=== PATIENT | female | born 1945 ===

== ENCOUNTER 2018-05-15 11:26 | Inpatient (IN) | payer MEDICARE, MEDICAID ==
[2018-05-15] MEDS ORDERED: Morphine 4 MG/ML VIAL ONE (11:59)
--- NOTE | 2018-05-15 12:05 | C.PDOC ---
History Of Present Illness 72 year old female presents to the ED complaining of left leg pain since 3:30pm yesterday. Patient is a poor historian, yelling and writhing in pain. On arrival, she appears to have increased swelling and redness to the left lower ex tremity. Patient also complains of pain to both feet. She admits to taking 3 tabs of Advil without relief. Patient also states she put rubbing alcohol on her leg. Time Seen by Provider: 05/15/18 11:43 Chief Complaint (Nursing): Lower Extremity Problem/Injury History Per: Patient History/Exam Limitations: no limitations Onset/Duration Of Symptoms: Days (x 2) Current Symptoms Are (Timing): Still Present Severity: Moderate Past Medical History Reviewed: Historical Data, Nursing Documentation, Vital Signs Vital Signs: Last Vital Signs Temp 97.3 F L 05/15/18 11:43 Pulse 76 05/15/18 11:43 Resp 20 05/15/18 11:43 BP 137/63 05/15/18 11:43 Pulse Ox 99 05/15/18 11:43 - Medical History PMH: CAD, CHF, Diabetes, HTN Surgical History: CABG Family History: States: No Known Family Hx - Social History Hx Alcohol Use: No Hx Substance Use: No Review Of Systems Constitutional: Negative for: Fever, Chills Cardiovascular: Negative for: Chest Pain Respiratory: Negative for: Shortness of Breath Gastrointestinal: Negative for: Vomiting, Abdominal Pain Musculoskeletal: Positive for: Leg Pain (with swelling to left leg) Skin: Positive for: Rash (redness to left leg) Physical Exam - Physical Exam Appears: Non-toxic, No Acute Distress Skin: Warm, Dry, Rash (non-blanching erythema scattered across the left lower extremity from upper thigh down to the ankle), Other (+ weeping to the left foot) Head: Atraumatic, Normacephalic Eye(s): bilateral: Normal Inspection Oral Mucosa: Moist Neck: Normal ROM Chest: Symmetrical Cardiovascular: Rhythm Regular, No Murmur Respiratory: Normal Breath Sounds, No Rales, No Rhonchi, No Wheezing Gastrointestinal/Abdominal: Soft, No Tenderness, No Distention Extremity: Normal ROM, Tenderness (diffusely tender to the left lower extremity), Swelling (Pitting edema to bilateral lower extremities, left > right), Other (Left leg is warm, DP pulses via doppler) Neurological/Psych: Oriented x3, Normal Speech, Normal Motor, Normal Sensation ED Course And Treatment - Laboratory Results Result Diagrams: 05/15/18 12:06 05/15/18 12:06 Lab Interpretation: Abnormal ECG: Interpreted By Me, Viewed By Me ECG Rhythm: Sinus Rhythm, R BBB Rate From EC O2 Sat by Pulse Oximetry: 99 (RA) Pulse Ox Interpretation: Normal Medical Decision Making Medical Decision Making: Impression: Left leg pain and swelling Differential diagnosis includes but not limited to: Cellulitis vs PVD vs DVT Plan: - CMP - CBC - PTT/PT - Urinalysis - 4 mg IV Morphine - Arterial and venous duplex studies ordered of LLE Patient also seen and evaluated by ED attending Dr. Nunez, who agrees with management. Received notice of critical lab value: 38 bands WBC 2.1k Platelets decreased Code Sepsis initiated. Will order 1 bolus of IV fluids, however no additional liters at this time due to patient's history of CHF. 14:41 photo technician called, states he is unable to obtain arterial doppler due to patient being uncooperative, in severe pain. Also reports venous doppler is negative for DVT, though he cannot see the veins of the calf. [id number] Loyd yousif manager organizational to discuss case. Accepted patient to service Disposition - Disposition Disposition: HOSPITALIZED Disposition Time: 15:04 Condition: FAIR Forms: [facility] (Montenegrin) - POA Core Measure Indicators: Code Sepsis - Clinical Impression Clinical Impression: Cellulitis of left lower extremity - PA / BLOCK PILER / Resident Statement MD/DO has reviewed & agrees with the documentation as recorded. - Scribe Statement The provider has reviewed the documentation as recorded by the Scribmorro Pacheco All medical record entries made by the Scribe were at my direction and personally dictated by me. I have reviewed the chart and agree that the record accurately reflects my personal performance of the history, physical exam, medical decision making, and the department course for this patient. I have also personally directed, reviewed, and agree with the discharge instructions and disposition. Decision To Admit - Pt Status Changed To: Hospital Disposition Of: Inpatient - Admit Certification Admit to Inpatient:: After my assessment, the patient will require hospitalization for at least two midnights. This is because of the severity of symptoms shown, intensity of services needed, and/or the medical risk in this patient being treated as an outpatient. - InPatient: Physician Admission Certification: I certify that this patient requires 2 or more midnights of care for the following reason:: patient with acute cellulitis of left lower extremity. labs and doppler performed. patient met sepsis criteria and treated with emperic antibiotics and fluids. [facility] - . Bed Request Type: Regular Admitting Physician: Alison Harp Patient Diagnosis: Cellulitis of left lower extremity
[2018-05-15 12:11] LABS: HEMOGLOBIN 8.7 g/dL (11.0-16.0); LYMPH # 0.1 K/uL (1.0-4.3); MONO # 0.1 K/uL (0.0-0.8)
[2018-05-15 12:15] LABS: BASO % 0.3 % (0.0-2.0); LYMPH % 5.8 % (20.0-40.0); MEAN CORPUSCULAR HEMOGLOBIN 34.3 pg (27.0-31.0); MEAN PLATELET VOLUME 10.8 fL (7.2-11.7); MONO % 5.1 % (0.0-10.0); NEUT # 1.9 K/uL (1.8-7.0); NEUT % 88.8 % (50.0-75.0); RBC 2.53 Mil/uL (3.80-5.20); RED CELL DISTRIBUTION WIDTH 16.9 % (11.5-14.5); WHITE BLOOD COUNT 2.1 K/uL (4.8-10.8)
[2018-05-15 12:18] LABS: INR 1.6; PROTHROMBIN TIME 17.6 SECONDS (9.7-12.2)
[2018-05-15 12:19] LABS: PLATELET COUNT 66 K/uL (130-400)
[2018-05-15 12:28] LABS: ALB/GLOB RATIO 1.2 (1.0-2.1); ALBUMIN 3.3 g/dL (3.5-5.0); CALCIUM 8.4 mg/dl (8.6-10.4)
[2018-05-15 12:37] LABS: ANISOCYTOSIS SLIGHT; BANDS 38 % (0-2); LYMPHOCYTE 7 % (20-40); METAMYELOCYTE 1 % (0-0); MONOCYTE 3 % (0-10); MYELOCYTE 1 % (0-0); NEUTROPHIL 50 % (50-75); OVALOCYTES SLIGHT; PLATELET ESTIMATE DECREASED (NORMAL); TOTAL CELLS COUNTED 100
[2018-05-15] MEDS ORDERED: Clindamycin 600 MG in Sodium Chloride 0.9% 100 ML IVPB STA (12:41)
[2018-05-15] MEDS ORDERED: Vancomycin 1 gm/NS 200 ml 1 GM/200 ML BAG IVPB STA (12:41)
[2018-05-15 13:06] LABS: VENOUS BLOOD GAS PCO2 46 mmHg (40-60); VENOUS BLOOD GAS PO2 17 mm/Hg (30-55)
[2018-05-15] MEDS ORDERED: Vancomycin 1 GM 1 GM/250 ML BAG IVPB ONE (13:13)
[2018-05-15] MEDS ORDERED: Clindamycin 600mg/50ml NS 600 MG/50 ML BAG IVPB ONE (13:13)
[2018-05-15 15:10] LABS: VENOUS BLOOD GAS BASE EXCESS -8.7 mmol/L (0.0-2.0); VENOUS BLOOD GAS PCO2 48 mmHg (40-60); VENOUS BLOOD GAS PO2 24 mm/Hg (30-55); VENOUS BLOOD PH 7.21 (7.32-7.43)
[2018-05-15] MEDS ORDERED: Potassium Chloride 20 mEq ER Tab PO ONE (16:40)
--- NOTE | 2018-05-15 17:28 | CP.PCM.PN ---
Subjective - Date & Time of Evaluation Date of Evaluation: 05/15/18 Time of Evaluation: 17:23 - Subjective Subjective: Ms. Hughes is a 72 year old female with PMHx of CHF, CAD, HLD, Diabetes, HTN, and Thyroid Disease (Unspecified) who presents with complaints of left lower extremity pain that began yesterday. Patient also admits to fever. Patie nt attempted ibuprofen and rubbing alcohol for the pain with any relief. ROS POSITIVES: Left Lower Ext. pain. Fevers. NEGATIVES: Headache, chest pain, SOB, abdominal pain, nausea, vomiting, changes in bowel habits, urinary symptoms. PMHx: PMHx of CHF, CAD, HLD, Diabetes, HTN, and Thyroid Disease,Kidney Disease (Son said they have been told about the kidney disease but never f/u) PSHX: CABGx2 Allergies: Penicillin per chart, patient states she doesn't know SocialHx: Denies tobacco, EtoH, and Illicit Drug USe FamHx: Brother/Sister - Diabetes Meds: Per APR (Pharmacy called, patient hasn't picked up medications from [facility] pharmacy since 2018). Although that is the pharmacy her son named. PMD: Dr. Vilchis in [place] Objective - Vital Signs/Intake and Output Vital Signs (last 24 hours): Temp Pulse Resp BP Pulse Ox 97.7 F 60 16 134/48 L 95 05/15/18 16:03 05/15/18 16:03 05/15/18 16:03 05/15/18 16:03 05/15/18 16:03 - Medications Medications: Current Medications Acetaminophen (Tylenol 325mg Tab) 650 mg PO Q6 PRN PRN Reason: Fever >100.4 F Vancomycin/Sodium Chloride (Vancomycin 1 Gm/Ns 200 Ml) 1 gm in 200 mls @ 133 mls/hr IVPB Q24H [facility]; Protocol Stop: 05/21/18 13:01 Morphine Sulfate (Morphine) 2 mg IVP Q4 PRN PRN Reason: Pain - Labs Labs: 05/15/18 12:06 05/15/18 12:06 PT 17.6 SECONDS (9.7-12.2) H 05/15/18 12:06 INR 1.6 05/15/18 12:06 APTT 33 SECONDS (21-34) 03/29/19 12:06 - Constitutional Appears: Toxic, No Acute Distress, Chronically Ill - Head Exam Head Exam: ATRAUMATIC, NORMAL INSPECTION, NORMOCEPHALIC - Eye Exam Eye Exam: EOMI, Normal appearance. absent: Scleral icterus - ENT Exam ENT Exam: Mucous Membranes Dry - Neck Exam Neck Exam: absent: Lymphadenopathy, Thyromegaly - Respiratory Exam Respiratory Exam: Decreased Breath Sounds (B/L L>R), Clear to Ausculation Bilateral. absent: Accessory Muscle Use - Cardiovascular Exam Cardiovascular Exam: RRR, +S1, +S2 - GI/Abdominal Exam GI & Abdominal Exam: Soft, Normal Bowel Sounds. absent: Guarding, Tenderness, Organomegaly, Rebound - Extremities Exam Extremities Exam: Pedal Edema (R-+2, L-+3), Tenderness (Left Lowere Ext. ). absent: Normal Inspection - Neurological Exam Neurological Exam: Awake, Oriented x3. absent: Alert (Lethargic) - Psychiatric Exam Psychiatric exam: Normal Affect, Normal Mood - Skin Skin Exam: Dry, Intact, Warm Additional comments: Left Lower Extremity Erythema Assessment and Plan - Assessment and Plan (Free Text) Assessment: 72 year old female with PMHx of CHF, CAD, HLD, Diabetes, HTN, and Thyroid Disease who was admitted for Sepsis 2/ to Left Lower Ext. Cellulitis. Plan: SEPSIS/Left Lower Ext. Cellulitis Source: Left Lower Ext. Cellulitis vs PNA VBG Lactate 4.5x 2, Leukopenic, A-febrile CXR (05/15): shows almost complete white out of the left lung CT Chest/Abd/Pelvis(05/15): Ordered and PENDING. Consults: Infectious Disease (Dr. Guevara), Will Consider Podiatry Consult Labs: F/U Blood/Urine Culture. F/U UA Mgmt: Vancomycin 1gram Q24H Zosyn 2.25gm Q8H NS @ 75mls/hr Morphine 2mg Q4H IVP PRN (Held, due to Hypotension) Ultram 25 TID PRN (Use with Caution) Acute Renal Failure Cr. 3.3 on admission. No Baseline. Per Son, Patient was told about kidney disease but never followed up. Labs: Random Microalbumin w/Cr Ratio. F/U Consults: Nephrology (Dr. Pereira), Recs Appreciated Mgmt: Gentle Fluid Hydration (Hx of CHF). NS@75mls/hr Renally Dose Meds Avoid Nephrotoxic Agents Pantocytopenia WBC-2.1, HgB 8.7, Plt-66 Consults: Heme (Dr. Duggan), Recs Appreciated Labs: F/U Anemic Studies, F/U HIV Monitor Elevated Liver Enzymes AST Elevated. DDx: Ischemic Liver vs Fatty Liver, Vs Hepatitis CT Chest/Abd/Pelvis(05/15): Ordered and PENDING. Labs: Hepatitis Panel, F/U Continue to Monitor Left Lung White Out. CT Chest/Abd/Pelvis(05/15): Ordered and PENDING. Repeat CXR in AM Mgmt: Vancomycin 1gram Q24H Zosyn 2.25gm Q8H Hypotension Rapid Repsonse called for hypotension SBP in 70-80s Consults: Cardio (Dr. Ramires), Recs Appreciated RBBB on EKG Likely 2/2 to Morphine (Given in ED) vs Sepsis. Mgmt: 250 fluid Bolus. Inc Fluids to 75mls/hr Transferred to Tele Hold all Antihypertensives Hx of CHF/RBBB Unknown if Systolic vs Diastolic. Likely ischemic Cardiomyopathy Consults: Cardio (Dr. Ramires), Recs Appreciated ECHO (05/15/18): Ordered and PENDING BNP Ordered - F/U Mgmt: Fluid Caution, HOB Elevated to 30, Strict I's & O' Hold Home MEtoprolol due to RBBB Furosemide 20mg BID CAD w/ CABG Called pharmacy Patient was not on ASA nor Plavix. Aspirin was mentioned and she stated she stopped taking it because she didn't like it Mgmt: ASA 81 Daily Home Pravastatin 40mg PO HS Thyroid Disease Patient and patients son does not know what type of Thyroid Disease she has Pharmacy Called. No medications on list for Hyper or Hypothyroidism Labs: TSH/Free t4 - F/U Hyperlipidemia Mgmt: Home Pravastatin 40mg PO HS Hypertension Mgmt: Hold all Antihypertensives Hold Lasix for SBP < 90 Diabetes Type 2 F/U HgBA1C Mgmt: Home Glipizide 10mg BID Proph No pharmocological VTE proph due to pantocytopenia No SCD's due to Edema/Cellulitis. Pepcid 20 Daily (Home Med, Renally Dosed) Renal Diet, Mod Cons. Carbs 2gm Na Patient discussed with Dr. Loyd Tovar
[2018-05-15] MEDS ORDERED: Sodium Chloride 0.9% 1,000 ML IV SCH ×2 (17:45→18:42)
[2018-05-15 18:10] LABS: IRON 14 ug/dL (37-170)
[2018-05-15] MEDS ORDERED: Sodium Chloride 0.9% 250 ML IV ONE ×2 (18:12→23:04)
[2018-05-15 18:21] LABS: % IRON SATURATION 5 (20-55); TOTAL IRON BINDING CAPACITY 288 ug/dL (250-450)
[2018-05-15 18:44] LABS: HEPATITIS B SURFACE AG Negative (NEGATIVE)
--- NOTE | 2018-05-15 18:45 | PCM.RRT ---
MANAGER GROCERY Nurses Assessment - Situation Date: 05/15/18 Time MANAGER GROCERY was called: 18:34 MANAGER GROCERY Responder Arrival Time:: 18:35 MANAGER GROCERY Location:: [facility]/Surg Room Number: 369B MANAGER GROCERY Reason for Call: Hypotension MANAGER GROCERY Called By: RN - IV IV Inserted during MANAGER GROCERY?: No IV Fluids Initiated During MANAGER GROCERY?: NS @ 75 cc/hr - Respiratory MANAGER GROCERY Delivery Method: Nasal Cannula @L/min Oxygen Flow Rate: 2 Received Nebulizer Treatments: No Was the Patient Ventilated with Bag/Mask 100% O2?: No Secretions Suctioned?: No Was the Patient Intubated?: No Was the Patient Placed on a Ventilator?: No - Medication Medications Administered During MANAGER GROCERY: Zofran 4 mg IVP - Diagnostic Test Ordered EKG: Yes Chest X-Ray: No CT Scan: No - Stat Labs Ordered MANAGER GROCERY Stat Labs Ordered: LACTIC ACID CPR started during MANAGER GROCERY?: No - Vital Signs Vital Signs: BP 70/40 HR 55 spO2 97% on 2 L T 98.2 - [place] Coma Scale Coma Scale Eye Opening: Spontaneous Coma Scale Motor: Obeys Commands Movement Coma Scale Verbal: Oriented Coma Scale Total: 15 - Sepsis Screen Part 1 Sepsis Screen Part 1: Hypotensive - Sepsis Screen Part 2 Sepsis Screen Part 2: Bands over 10% - Time MANAGER GROCERY Ended Time MANAGER GROCERY Ended: 18:55 - Vital Signs at end of MANAGER GROCERY Vital Signs at end of MANAGER GROCERY: BP 92/54 HR 62 spO2 100% on 2 L T 98.2 - Recommendations 5) MANAGER GROCERY Level of Care Recommendations: Transfer to Telemetry Notifications: Attending Physician I.Reason for MANAGER GROCERY - A) Acute Change in Patient: (Select all that apply): Acute change in SBP below Subjective: RN called MANAGER GROCERY for hypotension and vomiting. Patient is in acute distress but is alert and oriented. Gave IV Zofran, and patient stopped vomiting. She then said she was hungry. She denies BRICE, chest pain, SOB, abdominal pain. IVF increased from NS @ 40 cc/hr to 75 cc/hr. EKG ordered. Patient will be transferred to telemetry. - Neurological Status (Select all that apply): Alert, Responsive, Oriented, Verbal, Follows Commands - Respiratory Oxygen Delivery Method: Nasal Cannula @L/min (2) - Constitutional Appears: Toxic, In Acute Distress - Head Head Exam: ATRAUMATIC, NORMAL INSPECTION - Eyes Eye Exam: EOMI, Normal appearance, PERRL - Respiratory Exam Respiratory Exam: Rales, NORMAL BREATHING PATTERN. absent: Respiratory Distress - Cardiovascular Exam Cardiovascular Exam: RRR, +S1, +S2 - GI/Abdominal Exam GI & Abdominal Exam: Soft. absent: Distended, Tenderness - Neurological Exam Neurological Exam: Alert, Awake, CN II-XII Intact, Oriented x3 - Extremities Exam Extremities Exam: Pedal Edema (cellulitis bilaterally to just below knees) Plan - Assessment of Findings&Treatment Plan Patient is a 72 yo female admitted today for sepsis- suspect 2/2 lower extremity cellulitis. MANAGER GROCERY called for vomiting and hypotension. Plan: - Stat Zofran 4 mg IVP - Stat EKG - Stat glucose - Start Zosyn 2.25 mg IV Q8H - Hold morphine - Transfer to telemetry - Repeat BP in 30 minutes - Trend lactate
[2018-05-15 18:48] LABS: FERRITIN 73.4 ng/mL
[2018-05-15 18:50] LABS: HEPATITIS A IGM NEGATIVE (NEGATIVE); HEPATITIS B CORE AB NEGATIVE (NEGATIVE)
[2018-05-15 19:02] LABS: HEPATITIS C ANTIBODY NEGATIVE (NEGATIVE)
[2018-05-15 19:18] LABS: FOLATE 13.7 ng/mL
[2018-05-15] MEDS ORDERED: Tramadol 25 mg PO PRN (19:26)
--- NOTE | 2018-05-15 19:32 | PCM.SEPTIC ---
Sepsis Progress Note - Reassessment Type Date of Evaluation: 05/15/18 Time of Evaluation: 18:35 Reassessment Type: Non-invasive reassessment - Non Invasive Reassessment Were the most recent vital sign reviewed: Yes Vital Sign (Latest): Temp Pulse Resp BP Pulse Ox 98.2 F 58 L 20 77/49 L 99 05/15/18 19:16 05/15/18 19:16 05/15/18 19:16 05/15/18 19:16 05/15/18 19:16 Cardiovascular: Yes: Edema, Bradycardia. No: Regular Rate, Rhythm, Murmur, Ectopy, Friction Rub Respiratory: Yes: Decreased Breath Sounds. No: Accessory Muscle Use, Crackles, Rales, Rhonchi, Stridor Capillary Refill: Normal (Less than 2 sec) Pulses: Normal Radial, Normal Dorsalis Pedis, Normal Posterior Tibialis Skin: Pale - Invasive Reassessment (complete 2 of 4) Was a Central Venous Pressure Measurement obtained within 6 Hours after the presentation of septic shock: No Fluid Challenge performed: Yes
[2018-05-15] MEDS ORDERED: Etomidate 20 mg/10ml Inj IV STA (20:01)
[2018-05-15] MEDS ORDERED: Sodium Bicarbonate (8.4%) 50 Meq Syringe IVP STA (20:02)
--- NOTE | 2018-05-15 20:35 | PCM.RRT ---
UNDERGROUND MINE MACHINERY MECHANIC Nurses Assessment - Situation Date: 05/15/18 Time UNDERGROUND MINE MACHINERY MECHANIC was called: 19:43 UNDERGROUND MINE MACHINERY MECHANIC Responder Arrival Time:: 19:44 UNDERGROUND MINE MACHINERY MECHANIC Location:: Med/Oncology Room Number: 369B UNDERGROUND MINE MACHINERY MECHANIC Reason for Call: Hypotension, O2 Saturation below 90% UNDERGROUND MINE MACHINERY MECHANIC Called By: RN - IV IV Inserted during UNDERGROUND MINE MACHINERY MECHANIC?: No - Respiratory UNDERGROUND MINE MACHINERY MECHANIC Delivery Method: Intubated Received Nebulizer Treatments: No Was the Patient Ventilated with Bag/Mask 100% O2?: No Secretions Suctioned?: Yes Was the Patient Intubated?: Yes Was the Patient Placed on a Ventilator?: No - Diagnostic Test Ordered EKG: No Chest X-Ray: No CT Scan: No CPR started during UNDERGROUND MINE MACHINERY MECHANIC?: No - Vital Signs Vital Signs: Rapid Response Vital Sign Blood Pressure 87/56 Pulse Rate 83 Respiratory Rate 20 Temperature 98.2 F Oxygen Saturation 78 - [place] Coma Scale Coma Scale Eye Opening: Spontaneous Coma Scale Motor: Obeys Commands Movement Coma Scale Verbal: Oriented Coma Scale Total: 15 - Sepsis Screen Part 1 Sepsis Screen Part 1: Hypotensive - Sepsis Screen Part 2 Sepsis Screen Part 2: Bands over 10% - Time UNDERGROUND MINE MACHINERY MECHANIC Ended Time UNDERGROUND MINE MACHINERY MECHANIC Ended: 20:03 - Recommendations 5) UNDERGROUND MINE MACHINERY MECHANIC Level of Care Recommendations: Transfer to ICU Notifications: Attending Physician I.Reason for UNDERGROUND MINE MACHINERY MECHANIC - A) Acute Change in Patient: Subjective: House Doctor Note Rapid Response called for patient at 19:43 Patient producing copious amounts of bilious vomiting, aspirated prior to arrival Unable to maintain saturation at adequate level, called for intubation 2/2 aspiration. Patient also noted to be hypotensive on arrival at 87/56. Patient's mouth was immediately suctioned, dentures were removed and given to nurse, patient was induced with 10 mg of etomidate and 80 mg of sux, cricoid pressure was held, rapid sequence intubation performed. Transferred to ICU for further monitoring and care. Initial vitals (19:43) BP 87/56 HR 83 O2 sat 78% Final vitals (20:03) BP 144/64 HR 86 O2 sat 98% - Respiratory Oxygen Delivery Method: Intubated - Head Head Exam: ATRAUMATIC, NORMAL INSPECTION, NORMOCEPHALIC - Eyes Eye Exam: EOMI, Normal appearance, PERRL - Respiratory Exam Additional comments: intubated 2/2 aspiration - Cardiovascular Exam Cardiovascular Exam: REGULAR RHYTHM, +S1, +S2 - GI/Abdominal Exam GI & Abdominal Exam: Soft, Normal Bowel Sounds
[2018-05-15] MEDS: Dexmedetomidine Hydrochloride 200 MCG in Sodium Chloride 0.9% 48 ML IV PRN (20:40)
--- NOTE | 2018-05-15 20:44 | CP.PCM.PN ---
Subjective - Date & Time of Evaluation Date of Evaluation: 05/15/18 Time of Evaluation: 19:55 - Subjective Subjective: I was called by the primary doctor, the hospitalist to intubate the patient because patient vomited couple of times large volumes and aspirated prior to my arrival. Primary team was unable to get her saturation up and called for intubat ion secondary to aspiration. Patient was also hypotensive. At the time of my arrival patient was moaning, shaking head side to side, vomitus observed on the pillow by the head and bed sheet, as well as the mouth. At my arrival patient was been given oxygen by respiratory therapy assistant. At my arrival the saturation was in upper 70's, BP 87/56. Patient's mouth was immediately suctioned and cleaned, upper denture removed, given to the nurse, patient was induced with 10 mg of etomidate and 80 mg of sux, cricoid pressure was held, rapid sequence intubation performed. DL x1, MAC 3 , grade 1 view, mouth clean at DL, ETT 7.0 placed, cuff inflated immediately, tube taped at 21 cm. BS BL and equal, EZ cap positive for ETCO2. Intubation was uneventful and easy. Post intubation saturation improved to 90's, BP remained same. Objective - Vital Signs/Intake and Output Vital Signs (last 24 hours): Temp Pulse Resp BP Pulse Ox 98.2 F 58 L 20 77/49 L 99 05/15/18 19:16 05/15/18 19:16 05/15/18 19:16 05/15/18 19:16 05/15/18 19:16 - Medications Medications: Current Medications Acetaminophen (Tylenol 325mg Tab) 650 mg PO Q6 PRN PRN Reason: Fever >100.4 F or Pain Aspirin (Aspirin Chewable) 81 mg PO DAILY [facility] Famotidine (Pepcid) 20 mg PO DAILY [facility] Glipizide (Glucotrol) 10 mg PO BID [facility] Vancomycin/Sodium Chloride (Vancomycin 1 Gm/Ns 200 Ml) 1 gm in 200 mls @ 133 mls/hr IVPB Q24H [facility]; Protocol Stop: 05/21/18 10:01 Piperacillin Sod/Tazobactam Sod (Zosyn 2.25 Gm Iv Premix) 2.25 gm in 50 mls @ 100 mls/hr IVPB Q8H [facility]; Protocol Sodium Chloride (Sodium Chloride 0.9%) 1,000 mls @ 75 mls/hr IV .[id number] [facility] Dexmedetomidine HCl 200 mcg/ (Sodium Chloride) 50 mls @ 3.4 mls/hr IV TITR PRN; Protocol PRN Reason: Sedation Morphine Sulfate (Morphine) 2 mg IVP Q4 PRN PRN Reason: Pain Rosuvastatin Calcium (Crestor) 5 mg PO HS [facility] - Labs Labs: 05/15/18 12:06 05/15/18 12:06 PT 17.6 SECONDS (9.7-12.2) H 05/15/18 12:06 INR 1.6 05/15/18 12:06 APTT 33 SECONDS (21-34) 05/15/18 12:06
[2018-05-15] MEDS ORDERED: Levothyroxine 50 MCG TAB PO STA (21:48)
[2018-05-15] MEDS: Piperacill/Tazo 2.25gm in Dex 2.25 GM/50 ML BAG IVPB SCH (21:52)
[2018-05-15] MEDS: MethylPREDNISolone 40 mg Vial IVP SCH (21:55)
[2018-05-15 21:57] LABS: ARTERIAL BLOOD GAS HCO3 16.4 mmol/L (21-28); ARTERIAL BLOOD GAS PCO2 35 mm/Hg (35-45); ARTERIAL BLOOD GAS PH 7.25 (7.35-7.45); ARTERIAL BLOOD GAS PO2 230 mm/Hg (80-100); ARTERIAL BLOOD GAS TCO2 16.4 mmol/L (22-28)
[2018-05-15] MEDS ORDERED: DOPamine 400mg/250ml D5W 400 MG/250 ML BAG IV PRN (22:12)
[2018-05-15] MEDS: Sodium Chloride 0.9% 1,000 ML IV SCH (22:30)
[2018-05-15 23:02] LABS: SQUAMOUS EPITHIAL 2 /hpf (0-5); URINE AMORPHOUS SEDIMENT MODERATE /ul (<OCC); URINE BACTERIA OCC (<OCC); URINE BILIRUBIN NEGATIVE (NEGATIVE); URINE BLOOD 1+ (NEGATIVE); URINE CLARITY Hazy (Clear); URINE COLOR Amber (YELLOW); URINE GLUCOSE (UA) NORMAL (Normal); URINE LEUKOCYTE ESTERASE TRACE Leu/uL (Negative); URINE PROTEIN 2+ mg/dL (NEGATIVE)
[2018-05-15] MEDS ORDERED: Dextrose 50% SYRINGE Inj (50 ml) IV STA (23:45)
[2018-05-16] MEDS: Piperacill/Tazo 2.25gm in Dex 2.25 GM/50 ML BAG IVPB SCH ×3 (03:30→19:00)
[2018-05-16 04:23] LABS: SQUAMOUS EPITHIAL 53 /hpf (0-5); URINE AMORPHOUS SEDIMENT FEW /ul (<OCC); URINE BACTERIA MANY (<OCC); URINE BILIRUBIN NEGATIVE (NEGATIVE); URINE BLOOD 3+ (NEGATIVE); URINE CLARITY Turbid (Clear); URINE COLOR Amber (YELLOW); URINE GLUCOSE (UA) NORMAL (Normal); URINE LEUKOCYTE ESTERASE 1+ Leu/uL (Negative); URINE PROTEIN 2+ mg/dL (NEGATIVE); URINE UROBILINOGEN NORMAL mg/dL (0.2-1.0); WBC CLUMPS MANY /hpf
[2018-05-16] MEDS: Dexmedetomidine Hydrochloride 200 MCG in Sodium Chloride 0.9% 48 ML IV PRN ×3 (05:40→21:00)
[2018-05-16 05:49] LABS: ARTERIAL BLOOD GAS HCO3 19.3 mmol/L (21-28); ARTERIAL BLOOD GAS HEMOGLOBIN 9.1 g/dL (11.7-17.4); ARTERIAL BLOOD GAS O2 SAT 96.4 % (95-98); ARTERIAL BLOOD GAS PCO2 39 mm/Hg (35-45); ARTERIAL BLOOD GAS PH 7.29 (7.35-7.45); ARTERIAL BLOOD GAS PO2 102 mm/Hg (80-100)
[2018-05-16 06:40] LABS: MEAN CELL VOLUME 105.7 fL (81.0-99.0); MEAN CORPUSCULAR HEMOGLOBIN 33.6 pg (27.0-31.0); MEAN CORPUSCULAR HGB CONC 31.8 g/dL (33.0-37.0); MEAN PLATELET VOLUME 10.7 fL (7.2-11.7); RBC 2.69 Mil/uL (3.80-5.20); RED CELL DISTRIBUTION WIDTH 17.9 % (11.5-14.5)
[2018-05-16 06:52] LABS: WHITE BLOOD COUNT 1.9 K/uL (4.8-10.8)
[2018-05-16 07:01] LABS: ALBUMIN 2.7 g/dL (3.5-5.0); CALCIUM 7.9 mg/dl (8.6-10.4)
--- NOTE | 2018-05-16 07:46 | CP.PCM.CON ---
History of Present Illness - History of Present Illness History of Present Illness: Chief complaint: Respiratory distress HPI: 72-year-old female with a history of CHF, CAD, hypertension, hyperlipidemia, history of thyroid disease and renal disease, patient admitted to the hospital with a complaining of left lower extremity pain swelling of one day duration. Patient was also having fever. In the emergency room "code sepsis called in. Patient admitted to the medical floor. As the patient having repeated episodes of tachycardia and hypotension rapid response was called and the patient become more lethargic after vomiting episode, intubated by the anesthesiologist and the patient was brought to the intensive care unit. Patient is currently sedated on and on ventilator. Patient son at bedside. Patient had episodes of fever. Also having episodes of chills. Patient had a bite he is vomiting while he was intubating. Past medical history: Had a history of congestive heart failure, coronary artery disease, diabetes, hypertension, hypothyroidism, renal insufficiency. Patient has allergic to penicillin Surgical history include coronary artery bypass grafting x2 Social history: No smoking or drinking history noted Family history significant for diabetes and heart disease Medications at this time not available. Review of system: Patient is very lethargic, intubated now, currently needing his sedation Moving all 4 extremities. Upon admission patient was having severe pain in the left lower extremity, foul- smelling urine noted Also patient was having fever. Chills. Low blood pressure noted in the emergency room On examination: Patient is currently sedated. On ventilator. Hypotension noted. No jugular venous distention noted. Chest bilateral good air entry Heart sounds are regular Abdomen soft nontender. Significant lower extremity edema noted up to the mid thigh region. Also a perineal edema noted Left lower extremity erythema, tenderness, and swelling noted Patient's labs reviewed Elevated creatinine level noted. Also elevated lactic acid Chest x-ray ET tube in position. Patient has a left lower lung effusion Pneumonia cannot be ruled out Assessment and recommendation: 72-year-old female now admitted with acute respiratory failure On ventilator. Hypotension Likely patient has a possible sepsis, and associated septic shock multiorgan failure Discussed with the patient's son about the overall prognosis Low-dose corticosteroid ordered. Hypothyroidism Levothyroxine added DVT GI prophylaxis We will get echocardiogram and a further workup. Overall prognosis is very poor Currently on antibiotic. Acute on chronic renal insufficiency also noted. Patient has a multiple consultants including cardiology, infectious disease, pastrycook. Patient will be monitored in the intensive care unit. Sedation as needed. IV hydration. Past Patient History - Past Medical History & Family History Past Medical History?: Yes - Past Social History Smoking Status: Never Smoked - CARDIAC Hx Congestive Heart Failure: Yes Hx Hypertension: Yes - ENDOCRINE/METABOLIC Hx Endocrine Disorders: Yes Hx Diabetes Mellitus Type 2: Yes - MUSCULOSKELETAL/RHEUMATOLOGICAL Hx Falls: Yes - PSYCHIATRIC Hx Substance Use: No - SURGICAL HISTORY Hx Coronary Artery Bypass Graft: Yes - ANESTHESIA Hx Anesthesia: Yes Has any member of the family had a problem w/ anesthesia?: No Meds Allergies/Adverse Reactions: Allergies Allergy/AdvReac Type Severity Reaction Status Date / Time Penicillins Allergy Verified 05/15/18 11:34 - Medications Medications: Current Medications Acetaminophen (Tylenol 325mg Tab) 650 mg PO Q6 PRN PRN Reason: Fever >100.4 F or Pain Aspirin (Aspirin Chewable) 81 mg PO DAILY LAURENCE Famotidine (Pepcid) 20 mg PO DAILY LAURENCE Last Admin: 05/15/18 21:55 Dose: 20 mg Ferric Sodium Gluconate Complex (Ferrlecit) 125 mg IVPB DAILY LAUR[facility] Stop: 05/24/18 10:01 Glipizide (Glucotrol) 10 mg PO BID LAURENCE Vancomycin/Sodium Chloride (Vancomycin 1 Gm/Ns 200 Ml) 1 gm in 200 mls @ 133 mls/hr IVPB Q24H [facility]; Protocol Stop: 05/21/18 10:01 Piperacillin Sod/Tazobactam Sod (Zosyn 2.25 Gm Iv Premix) 2.25 gm in 50 mls @ 100 mls/hr IVPB Q8H [facility]; Protocol Last Admin: 05/16/18 03:30 Dose: 100 mls/hr Dexmedetomidine HCl 200 mcg/ (Sodium Chloride) 50 mls @ 3.4 mls/hr IV TITR PRN; Protocol PRN Reason: Sedation Last Admin: 05/16/18 05:40 Dose: 0.2 mcg/kg/hr, 3.4 mls/hr Dopamine HCl/Dextrose (Dopamine 400mg/250ml D5w) 400 mg in 250 mls @ 5.103 mls/hr IV .Q24H PRN; Protocol PRN Reason: TITRATE PER MD ORDER Last Titration: 05/16/18 00:30 Dose: 3 mcg/kg/min, 7.654 mls/hr Sodium Chloride (Sodium Chloride 0.9%) 1,000 mls @ 100 mls/hr IV .Q10H [facility] Last Admin: 05/15/18 22:30 Dose: 100 mls/hr Dextrose (Dextrose 5% In Water 1000 Ml) 1,000 mls @ 40 mls/hr IV .Q24H [facility] Last Admin: 05/15/18 23:50 Dose: 40 mls/hr Methylprednisolone (Solu-Medrol) 40 mg IVP Q12 [facility] Last Admin: 05/15/18 21:55 Dose: 40 mg Morphine Sulfate (Morphine) 2 mg IVP Q4 PRN PRN Reason: Pain Rosuvastatin Calcium (Crestor) 5 mg PO HS [facility] Last Admin: 05/15/18 21:55 Dose: 5 mg Results - Vital Signs Recent Vital Signs: Last Vital Signs Temp 97.9 F 05/16/18 00:00 Pulse 73 05/16/18 07:03 Resp 16 05/16/18 07:03 BP 98/49 L 05/16/18 07:03 Pulse Ox 100 05/16/18 07:03 - Labs Result Diagrams: 05/16/18 06:30 05/16/18 06:30 Labs: Laboratory Results - last 24 hr 05/15/18 05/15/18 05/15/18 11:31 12:06 12:06 WBC 2.1 L RBC 2.53 L Hgb 8.7 L Hct 26.4 L MCV 104.0 H MCH 34.3 H MCHC 33.0 RDW 16.9 H Plt Count 66 L MPV 10.8 Neut % (Auto) 88.8 H Lymph % (Auto) 5.8 L [place] % (Auto) 5.1 Eos % (Auto) 0.0 Baso % (Auto) 0.3 Neut # (Auto) 1.9 Lymph # (Auto) 0.1 L [place] # (Auto) 0.1 Eos # (Auto) 0.0 Baso # (Auto) 0.0 Neutrophils % (Manual) 50 Band Neutrophils % 38 H* Lymphocytes % (Manual) 7 L Monocytes % (Manual) 3 Metamyelocytes % 1 H Myelocytes % 1 H Platelet Estimate Decreased L Anisocytosis (manual) Slight Ovalocytes Slight Haptoglobin PT 17.6 H INR 1.6 APTT 33 Puncture Site pCO2 pO2 HCO3 ABG pH ABG Total CO2 ABG O2 Saturation ABG Base Excess ABG Hemoglobin ABG Carboxyhemoglobin POC ABG HHb (Measured) ABG Methemoglobin Nicolás Test ABG Potassium VBG pH VBG pCO2 VBG HCO3 VBG Total CO2 VBG O2 Sat (Calc) VBG Base Excess VBG Potassium A-a O2 Difference Respiratory Index Hgb O2 Saturation Glucose Lactate Vent Mode Mechanical Rate FiO2 Tidal Volume PEEP Crit Value Called To Crit Value Called By Crit Value Read Back Blood Gas Notified Time Sodium Potassium Chloride Carbon Dioxide Anion Gap BUN Creatinine Est GFR ( Amer) Est GFR (Non-Af Amer) POC Glucose (mg/dL) 155 H Random Glucose Hemoglobin A1c Lactic Acid Calcium Phosphorus Magnesium Iron TIBC % Saturation Ferritin Total Bilirubin AST ALT Alkaline Phosphatase NT-Pro-B Natriuret Pep Total Protein Albumin Globulin Albumin/Globulin Ratio Vitamin B12 25-OH Vitamin D Total Folate Free T4 TSH 3rd Generation Arterial Blood Potassium Venous Blood Potassium Urine Color Urine Clarity Urine pH Ur Specific [place] Urine Protein Urine Glucose (UA) Urine Ketones Urine Blood Urine Nitrate Urine Bilirubin Urine Urobilinogen Ur Leukocyte Esterase Urine WBC (Auto) Urine RBC (Auto) Urine WBC Clumps (Auto) Ur Squamous Epith Cells Amorphous Sediment Urine Bacteria Hyaline Casts Hepatitis A IgM Ab Hep Bs Antigen Hep B Core IgM Ab Hepatitis C Antibody HIV 1&2 Antibody Screen 05/15/18 05/15/18 05/15/18 12:06 13:00 13:03 WBC RBC Hgb Hct MCV MCH MCHC RDW Plt Count MPV Neut % (Auto) Lymph % (Auto) [place] % (Auto) Eos % (Auto) Baso % (Auto) Neut # (Auto) Lymph # (Auto) [place] # (Auto) Eos # (Auto) Baso # (Auto) Neutrophils % (Manual) Band Neutrophils % Lymphocytes % (Manual) Monocytes % (Manual) Metamyelocytes % Myelocytes % Platelet Estimate Anisocytosis (manual) Ovalocytes Haptoglobin PT INR APTT Puncture Site pCO2 pO2 17 L HCO3 ABG pH ABG Total CO2 ABG O2 Saturation ABG Base Excess ABG Hemoglobin ABG Carboxyhemoglobin POC ABG HHb (Measured) ABG Methemoglobin Nicolás Test ABG Potassium VBG pH 7.30 L VBG pCO2 46 VBG HCO3 19.7 VBG Total CO2 24.0 VBG O2 Sat (Calc) 23.6 L VBG Base Excess -4.0 L VBG Potassium 3.4 L A-a O2 Difference Respiratory Index Hgb O2 Saturation Glucose 121 H Lactate 4.5 H* Vent Mode Mechanical Rate FiO2 Tidal Volume PEEP Crit Value Called To Rui lou pa-c Crit Value Called By Emerita silverman rt Crit Value Read Back Y Blood Gas Notified Time 1306 Sodium 139 144.0 Potassium 3.3 L Chloride 104 108.0 H Carbon Dioxide 22 Anion Gap 16 BUN 56 H Creatinine 3.3 H Est GFR ( Amer) 17 Est GFR (Non-Af Amer) 14 POC Glucose (mg/dL) Random Glucose 142 H Hemoglobin A1c Lactic Acid Calcium 8.4 L Phosphorus 4.1 Magnesium 1.8 Iron TIBC % Saturation Ferritin Total Bilirubin 1.0 AST 63 H ALT 13 Alkaline Phosphatase 54 NT-Pro-B Natriuret Pep Total Protein 6.0 L Albumin 3.3 L Globulin 2.7 Albumin/Globulin Ratio 1.2 Vitamin B12 25-OH Vitamin D Total Folate Free T4 TSH 3rd Generation Arterial Blood Potassium Venous Blood Potassium 3.4 L Urine Color Urine Clarity Urine pH Ur Specific [place] Urine Protein Urine Glucose (UA) Urine Ketones Urine Blood Urine Nitrate Urine Bilirubin Urine Urobilinogen Ur Leukocyte Esterase Urine WBC (Auto) Urine RBC (Auto) Urine WBC Clumps (Auto) Ur Squamous Epith Cells Amorphous Sediment Urine Bacteria Hyaline Casts Hepatitis A IgM Ab Hep Bs Antigen Hep B Core IgM Ab Hepatitis C Antibody HIV 1&2 Antibody Screen 05/15/18 05/15/18 05/15/18 15:07 17:04 17:49 WBC RBC Hgb Hct MCV MCH MCHC RDW Plt Count MPV Neut % (Auto) Lymph % (Auto) [place] % (Auto) Eos % (Auto) Baso % (Auto) Neut # (Auto) Lymph # (Auto) [place] # (Auto) Eos # (Auto) Baso # (Auto) Neutrophils % (Manual) Band Neutrophils % Lymphocytes % (Manual) Monocytes % (Manual) Metamyelocytes % Myelocytes % Platelet Estimate Anisocytosis (manual) Ovalocytes Haptoglobin PT INR APTT Puncture Site pCO2 pO2 24 L HCO3 ABG pH ABG Total CO2 ABG O2 Saturation ABG Base Excess ABG Hemoglobin ABG Carboxyhemoglobin POC ABG HHb (Measured) ABG Methemoglobin Nicolás Test ABG Potassium VBG pH 7.21 L VBG pCO2 48 VBG HCO3 16.3 VBG Total CO2 20.7 L VBG O2 Sat (Calc) 32.4 L VBG Base Excess -8.7 L VBG Potassium 3.7 A-a O2 Difference Respiratory Index Hgb O2 Saturation Glucose 104 Lactate 4.5 H* Vent Mode Mechanical Rate FiO2 Tidal Volume PEEP Crit Value Called To Enrique Crit Value Called By Isaiah pascual Crit Value Read Back Y Blood Gas Notified Time 1510 Sodium 143.0 Potassium Chloride 111.0 H Carbon Dioxide Anion Gap BUN Creatinine Est GFR ( Amer) Est GFR (Non-Af Amer) POC Glucose (mg/dL) 116 H Random Glucose Hemoglobin A1c Lactic Acid Calcium Phosphorus Magnesium Iron TIBC % Saturation Ferritin Total Bilirubin AST ALT Alkaline Phosphatase NT-Pro-B Natriuret Pep Total Protein Albumin Globulin Albumin/Globulin Ratio Vitamin B12 25-OH Vitamin D Total Folate Free T4 TSH 3rd Generation Arterial Blood Potassium Venous Blood Potassium 3.7 Urine Color Urine Clarity Urine pH Ur Specific [place] Urine Protein Urine Glucose (UA) Urine Ketones Urine Blood Urine Nitrate Urine Bilirubin Urine Urobilinogen Ur Leukocyte Esterase Urine WBC (Auto) Urine RBC (Auto) Urine WBC Clumps (Auto) Ur Squamous Epith Cells Amorphous Sediment Urine Bacteria Hyaline Casts Hepatitis A IgM Ab Negative Hep Bs Antigen Negative Hep B Core IgM Ab Negative Hepatitis C Antibody Negative HIV 1&2 Antibody Screen 05/15/18 05/15/18 05/15/18 17:49 17:49 17:49 WBC RBC Hgb Hct MCV MCH MCHC RDW Plt Count MPV Neut % (Auto) Lymph % (Auto) [place] % (Auto) Eos % (Auto) Baso % (Auto) Neut # (Auto) Lymph # (Auto) [place] # (Auto) Eos # (Auto) Baso # (Auto) Neutrophils % (Manual) Band Neutrophils % Lymphocytes % (Manual) Monocytes % (Manual) Metamyelocytes % Myelocytes % Platelet Estimate Anisocytosis (manual) Ovalocytes Haptoglobin 92.8 PT INR APTT Puncture Site pCO2 pO2 HCO3 ABG pH ABG Total CO2 ABG O2 Saturation ABG Base Excess ABG Hemoglobin ABG Carboxyhemoglobin POC ABG HHb (Measured) ABG Methemoglobin Nicolás Test ABG Potassium VBG pH VBG pCO2 VBG HCO3 VBG Total CO2 VBG O2 Sat (Calc) VBG Base Excess VBG Potassium A-a O2 Difference Respiratory Index Hgb O2 Saturation Glucose Lactate Vent Mode Mechanical Rate FiO2 Tidal Volume PEEP Crit Value Called To Crit Value Called By Crit Value Read Back Blood Gas Notified Time Sodium Potassium Chloride Carbon Dioxide Anion Gap BUN Creatinine Est GFR ( Amer) Est GFR (Non-Af Amer) POC Glucose (mg/dL) Random Glucose Hemoglobin A1c Lactic Acid Calcium Phosphorus Magnesium Iron 14 L TIBC 288 % Saturation 5 L Ferritin Total Bilirubin AST ALT Alkaline Phosphatase NT-Pro-B Natriuret Pep Total Protein Albumin Globulin Albumin/Globulin Ratio Vitamin B12 25-OH Vitamin D Total Folate Free T4 TSH 3rd Generation Arterial Blood Potassium Venous Blood Potassium Urine Color Urine Clarity Urine pH Ur Specific [place] Urine Protein Urine Glucose (UA) Urine Ketones Urine Blood Urine Nitrate Urine Bilirubin Urine Urobilinogen Ur Leukocyte Esterase Urine WBC (Auto) Urine RBC (Auto) Urine WBC Clumps (Auto) Ur Squamous Epith Cells Amorphous Sediment Urine Bacteria Hyaline Casts Hepatitis A IgM Ab Hep Bs Antigen Hep B Core IgM Ab Hepatitis C Antibody HIV 1&2 Antibody Screen Negative 05/15/18 05/15/18 05/15/18 17:49 17:49 17:49 WBC RBC Hgb Hct MCV MCH MCHC RDW Plt Count MPV Neut % (Auto) Lymph % (Auto) [place] % (Auto) Eos % (Auto) Baso % (Auto) Neut # (Auto) Lymph # (Auto) [place] # (Auto) Eos # (Auto) Baso # (Auto) Neutrophils % (Manual) Band Neutrophils % Lymphocytes % (Manual) Monocytes % (Manual) Metamyelocytes % Myelocytes % Platelet Estimate Anisocytosis (manual) Ovalocytes Haptoglobin PT INR APTT Puncture Site pCO2 pO2 HCO3 ABG pH ABG Total CO2 ABG O2 Saturation ABG Base Excess ABG Hemoglobin ABG Carboxyhemoglobin POC ABG HHb (Measured) ABG Methemoglobin Nicolás Test ABG Potassium VBG pH VBG pCO2 VBG HCO3 VBG Total CO2 VBG O2 Sat (Calc) VBG Base Excess VBG Potassium A-a O2 Difference Respiratory Index Hgb O2 Saturation Glucose Lactate Vent Mode Mechanical Rate FiO2 Tidal Volume PEEP Crit Value Called To Crit Value Called By Crit Value Read Back Blood Gas Notified Time Sodium Potassium Chloride Carbon Dioxide Anion Gap BUN Creatinine Est GFR ( Amer) Est GFR (Non-Af Amer) POC Glucose (mg/dL) Random Glucose Hemoglobin A1c Lactic Acid Calcium Phosphorus Magnesium Iron TIBC % Saturation Ferritin 73.4 Total Bilirubin AST ALT Alkaline Phosphatase NT-Pro-B Natriuret Pep Total Protein Albumin Globulin Albumin/Globulin Ratio Vitamin B12 351 25-OH Vitamin D Total Folate 13.7 Free T4 0.89 TSH 3rd Generation 14.40 H Arterial Blood Potassium Venous Blood Potassium Urine Color Urine Clarity Urine pH Ur Specific [place] Urine Protein Urine Glucose (UA) Urine Ketones Urine Blood Urine Nitrate Urine Bilirubin Urine Urobilinogen Ur Leukocyte Esterase Urine WBC (Auto) Urine RBC (Auto) Urine WBC Clumps (Auto) Ur Squamous Epith Cells Amorphous Sediment Urine Bacteria Hyaline Casts Hepatitis A IgM Ab Hep Bs Antigen Hep B Core IgM Ab Hepatitis C Antibody HIV 1&2 Antibody Screen 05/15/18 05/15/18 05/15/18 18:24 18:24 18:39 WBC RBC Hgb Hct MCV MCH MCHC RDW Plt Count MPV Neut % (Auto) Lymph % (Auto) [place] % (Auto) Eos % (Auto) Baso % (Auto) Neut # (Auto) Lymph # (Auto) [place] # (Auto) Eos # (Auto) Baso # (Auto) Neutrophils % (Manual) Band Neutrophils % Lymphocytes % (Manual) Monocytes % (Manual) Metamyelocytes % Myelocytes % Platelet Estimate Anisocytosis (manual) Ovalocytes Haptoglobin PT INR APTT Puncture Site pCO2 pO2 HCO3 ABG pH ABG Total CO2 ABG O2 Saturation ABG Base Excess ABG Hemoglobin ABG Carboxyhemoglobin POC ABG HHb (Measured) ABG Methemoglobin Nicolás Test ABG Potassium VBG pH VBG pCO2 VBG HCO3 VBG Total CO2 VBG O2 Sat (Calc) VBG Base Excess VBG Potassium A-a O2 Difference Respiratory Index Hgb O2 Saturation Glucose Lactate Vent Mode Mechanical Rate FiO2 Tidal Volume PEEP Crit Value Called To Crit Value Called By Crit Value Read Back Blood Gas Notified Time Sodium Potassium Chloride Carbon Dioxide Anion Gap BUN Creatinine Est GFR ( Amer) Est GFR (Non-Af Amer) POC Glucose (mg/dL) 95 Random Glucose Hemoglobin A1c 6.5 Lactic Acid Calcium Phosphorus Magnesium Iron TIBC % Saturation Ferritin Total Bilirubin AST ALT Alkaline Phosphatase NT-Pro-B Natriuret Pep 666315 H Total Protein Albumin Globulin Albumin/Globulin Ratio Vitamin B12 25-OH Vitamin D Total Folate Free T4 TSH 3rd Generation Arterial Blood Potassium Venous Blood Potassium Urine Color Urine Clarity Urine pH Ur Specific [place] Urine Protein Urine Glucose (UA) Urine Ketones Urine Blood Urine Nitrate Urine Bilirubin Urine Urobilinogen Ur Leukocyte Esterase Urine WBC (Auto) Urine RBC (Auto) Urine WBC Clumps (Auto) Ur Squamous Epith Cells Amorphous Sediment Urine Bacteria Hyaline Casts Hepatitis A IgM Ab Hep Bs Antigen Hep B Core IgM Ab Hepatitis C Antibody HIV 1&2 Antibody Screen 05/15/18 05/15/18 05/15/18 20:56 21:54 22:44 WBC RBC Hgb Hct MCV MCH MCHC RDW Plt Count MPV Neut % (Auto) Lymph % (Auto) [place] % (Auto) Eos % (Auto) Baso % (Auto) Neut # (Auto) Lymph # (Auto) [place] # (Auto) Eos # (Auto) Baso # (Auto) Neutrophils % (Manual) Band Neutrophils % Lymphocytes % (Manual) Monocytes % (Manual) Metamyelocytes % Myelocytes % Platelet Estimate Anisocytosis (manual) Ovalocytes Haptoglobin PT INR APTT Puncture Site B pCO2 35 pO2 230 H HCO3 16.4 L ABG pH 7.25 L ABG Total CO2 16.4 L ABG O2 Saturation 97.0 ABG Base Excess -11.0 L ABG Hemoglobin ABG Carboxyhemoglobin POC ABG HHb (Measured) ABG Methemoglobin Nicolás Test Na ABG Potassium 3.5 L VBG pH VBG pCO2 VBG HCO3 VBG Total CO2 VBG O2 Sat (Calc) VBG Base Excess VBG Potassium A-a O2 Difference 154.0 Respiratory Index 0.7 Hgb O2 Saturation Glucose 72 Lactate 4.7 H* Vent Mode Prvc Mechanical Rate 20 FiO2 60.0 Tidal Volume 400 PEEP 5 Crit Value Called To Dr. cooney Crit Value Called By Isaiah pascual Crit Value Read Back Y Blood Gas Notified Time 2156 Sodium 141.0 Potassium Chloride 111.0 H Carbon Dioxide Anion Gap BUN Creatinine Est GFR ( Amer) Est GFR (Non-Af Amer) POC Glucose (mg/dL) Random Glucose Hemoglobin A1c Lactic Acid 5.8 H* Calcium Phosphorus Magnesium Iron TIBC % Saturation Ferritin Total Bilirubin AST ALT Alkaline Phosphatase NT-Pro-B Natriuret Pep Total Protein Albumin Globulin Albumin/Globulin Ratio Vitamin B12 25-OH Vitamin D Total Folate Free T4 TSH 3rd Generation Arterial Blood Potassium 3.5 L Venous Blood Potassium Urine Color [place] Urine Clarity Hazy Urine pH 7.0 Ur Specific [place] 1.013 Urine Protein 2+ H Urine Glucose (UA) Normal Urine Ketones Negative Urine Blood 1+ H Urine Nitrate Negative Urine Bilirubin Negative Urine Urobilinogen 2.0 H Ur Leukocyte Esterase Trace Urine WBC (Auto) 7 H Urine RBC (Auto) 4 H Urine WBC Clumps (Auto) Ur Squamous Epith Cells 2 Amorphous Sediment Moderate H Urine Bacteria Occ H Hyaline Casts 3-5 H Hepatitis A IgM Ab Hep Bs Antigen Hep B Core IgM Ab Hepatitis C Antibody HIV 1&2 Antibody Screen 05/16/18 05/16/18 05/16/18 01:33 04:02 05:45 WBC RBC Hgb Hct MCV MCH MCHC RDW Plt Count MPV Neut % (Auto) Lymph % (Auto) [place] % (Auto) Eos % (Auto) Baso % (Auto) Neut # (Auto) Lymph # (Auto) [place] # (Auto) Eos # (Auto) Baso # (Auto) Neutrophils % (Manual) Band Neutrophils % Lymphocytes % (Manual) Monocytes % (Manual) Metamyelocytes % Myelocytes % Platelet Estimate Anisocytosis (manual) Ovalocytes Haptoglobin PT INR APTT Puncture Site Rb pCO2 39 pO2 102 H HCO3 19.3 L ABG pH 7.29 L ABG Total CO2 20.0 L ABG O2 Saturation 96.4 ABG Base Excess -7.2 L ABG Hemoglobin 9.1 L ABG Carboxyhemoglobin 0.3 L POC ABG HHb (Measured) 3.6 ABG Methemoglobin 0.3 Nicolás Test Na ABG Potassium VBG pH VBG pCO2 VBG HCO3 VBG Total CO2 VBG O2 Sat (Calc) VBG Base Excess VBG Potassium A-a O2 Difference 170.0 Respiratory Index 1.7 Hgb O2 Saturation 95.7 Glucose Lactate Vent Mode Prvc Mechanical Rate 20 FiO2 45.0 Tidal Volume 400 PEEP 5 Crit Value Called To Crit Value Called By Crit Value Read Back Blood Gas Notified Time Sodium Potassium Chloride Carbon Dioxide Anion Gap BUN Creatinine Est GFR ( Amer) Est GFR (Non-Af Amer) POC Glucose (mg/dL) Random Glucose Hemoglobin A1c Lactic Acid 4.4 H* Calcium Phosphorus Magnesium Iron TIBC % Saturation Ferritin Total Bilirubin AST ALT Alkaline Phosphatase NT-Pro-B Natriuret Pep Total Protein Albumin Globulin Albumin/Globulin Ratio Vitamin B12 25-OH Vitamin D Total Folate Free T4 TSH 3rd Generation Arterial Blood Potassium Venous Blood Potassium Urine Color [place] Urine Clarity Turbid Urine pH 7.0 Ur Specific [place] 1.017 Urine Protein 2+ H Urine Glucose (UA) Normal Urine Ketones Trace Urine Blood 3+ H Urine Nitrate Negative Urine Bilirubin Negative Urine Urobilinogen Normal Ur Leukocyte Esterase 1+ H Urine WBC (Auto) 127 H Urine RBC (Auto) 427 H Urine WBC Clumps (Auto) Many H Ur Squamous Epith Cells 53 H Amorphous Sediment Few H Urine Bacteria Many H Hyaline Casts Hepatitis A IgM Ab Hep Bs Antigen Hep B Core IgM Ab Hepatitis C Antibody HIV 1&2 Antibody Screen 05/16/18 05/16/18 05/16/18 06:30 06:30 06:30 WBC 1.9 L* RBC 2.69 L Hgb 9.0 L Hct 28.4 L MCV 105.7 H MCH 33.6 H MCHC 31.8 L RDW 17.9 H Plt Count 61 L MPV 10.7 Neut % (Auto) Lymph % (Auto) [place] % (Auto) Eos % (Auto) Baso % (Auto) Neut # (Auto) Lymph # (Auto) [place] # (Auto) Eos # (Auto) Baso # (Auto) Neutrophils % (Manual) Band Neutrophils % Lymphocytes % (Manual) Monocytes % (Manual) Metamyelocytes % Myelocytes % Platelet Estimate Anisocytosis (manual) Ovalocytes Haptoglobin PT INR APTT Puncture Site pCO2 pO2 HCO3 ABG pH ABG Total CO2 ABG O2 Saturation ABG Base Excess ABG Hemoglobin ABG Carboxyhemoglobin POC ABG HHb (Measured) ABG Methemoglobin Nicolás Test ABG Potassium VBG pH VBG pCO2 VBG HCO3 VBG Total CO2 VBG O2 Sat (Calc) VBG Base Excess VBG Potassium A-a O2 Difference Respiratory Index Hgb O2 Saturation Glucose Lactate Vent Mode Mechanical Rate FiO2 Tidal Volume PEEP Crit Value Called To Crit Value Called By Crit Value Read Back Blood Gas Notified Time Sodium 140 Potassium 3.8 Chloride 112 H Carbon Dioxide 18 L Anion Gap 14 BUN 62 H Creatinine 3.3 H Est GFR ( Amer) 17 Est GFR (Non-Af Amer) 14 POC Glucose (mg/dL) Random Glucose 81 D Hemoglobin A1c Lactic Acid Calcium 7.9 L Phosphorus 5.4 H Magnesium 1.8 Iron TIBC % Saturation Ferritin Total Bilirubin 1.0 AST 76 H D ALT 16 Alkaline Phosphatase 31 L D NT-Pro-B Natriuret Pep Total Protein 5.5 L Albumin 2.7 L Globulin 2.7 Albumin/Globulin Ratio 1.0 Vitamin B12 25-OH Vitamin D Total < 12.8 L Folate Free T4 TSH 3rd Generation Arterial Blood Potassium Venous Blood Potassium Urine Color Urine Clarity Urine pH Ur Specific [place] Urine Protein Urine Glucose (UA) Urine Ketones Urine Blood Urine Nitrate Urine Bilirubin Urine Urobilinogen Ur Leukocyte Esterase Urine WBC (Auto) Urine RBC (Auto) Urine WBC Clumps (Auto) Ur Squamous Epith Cells Amorphous Sediment Urine Bacteria Hyaline Casts Hepatitis A IgM Ab Hep Bs Antigen Hep B Core IgM Ab Hepatitis C Antibody HIV 1&2 Antibody Screen
[2018-05-16] MEDS: MethylPREDNISolone 40 mg Vial IVP SCH (10:00)
[2018-05-16] MEDS ORDERED: Ferric Sodium Gluconat Complex 62.5 mg/5 ml Vial IVPB SCH (10:00)
[2018-05-16] MEDS ORDERED: Potassium Chloride 10 mEq ER Tab PO SCH (10:00)
[2018-05-16] MEDS: Sodium Chloride 0.9% 1,000 ML IV SCH ×2 (10:51→17:12)
[2018-05-16] MEDS: Vancomycin 1 gm/NS 200 ml 1 GM/200 ML BAG IVPB SCH (11:01)
--- NOTE | 2018-05-16 11:47 | CT ---
Date of service: 05/15/2018 PROCEDURE: CT Chest, Abdomen and Pelvis without intravenous contrast HISTORY: White Out LEft Lung, Vomiting, Elevated LFTs, R/O COMPARISON: None available. TECHNIQUE: Radiation dose: Total exam DLP = 1662.1 mGy-cm. This CT exam was performed using one or more of the following dose reduction techniques: Automated exposure control, adjustment of the mA and/or kV according to patient size, and/or use of iterative reconstruction technique. FINDINGS: CT CHEST WITHOUT CONTRAST: LUNGS: [id number] pulmonary vascular congestion noted. There are nodular opacities noted at the left lower lobe and to less degree in the right middle and lower lobe suspicious for infectious process. MEDIASTINUM: The thoracic aorta is ectatic and tortuous. The main pulmonary artery is mildly enlarged. Atherosclerotic calcifications seen in the thoracic aorta. The heart is moderately enlarged. No evidence of pericardial effusion. LYMPH NODES: Unremarkable. PLEURA: Small right pleural effusion is noted. BONES: Unremarkable. OTHER FINDINGS: The NG tube seen extending to the stomach. CT ABDOMEN AND PELVIS: LIVER: Moderate hepatomegaly and diffuse heterogeneous attenuation of the liver is noted. GALLBLADDER AND BILE DUCTS: Large gallstones are seen without definite CT evidence of acute cholecystitis. PANCREAS: The pancreas is small in size not well visualized in this study. There is fullness noted in the pancreatic head. SPLEEN: Unremarkable. ADRENALS: Diffuse enlargement of the adrenal glands noted bilaterally suggestive of adrenal hyperplasia. KIDNEYS AND URETERS: The kidneys are small in size without evidence of hydronephrosis. VASCULATURE: Diffuse atherosclerotic calcification noted in the abdominal aorta and iliac arteries. No evidence of aortic aneurysm. BOWEL: Colonic diverticulosis are seen without evidence of diverticulitis. No evidence of high-grade bowel obstruction. APPENDIX: No definite evidence of appendicitis. PERITONEUM: There is a small amount of free fluid in the abdomen and pelvis noted. LYMPH NODES: Unremarkable. No enlarged lymph nodes. BLADDER: The urinary bladder is collapsed around the [place] catheter. REPRODUCTIVE: Unremarkable. BONES: No acute fracture. OTHER FINDINGS: Moderate diffuse soft tissue edema. IMPRESSION: Nodular opacities at the left lung lower lobe may represent pneumonia. Moderate cardiomegaly and small right pleural effusion associated with [id number] pulmonary vascular congestion. Hepatomegaly. Large gallstones without definite evidence of acute cholecystitis. Ascites noted. Moderate anasarca.
--- NOTE | 2018-05-16 12:14 | RAD ---
Date of service: 05/15/2018 HISTORY: chf intubation COMPARISON: Comparison is made with 05/15/2018 TECHNIQUE: 1 view obtained. FINDINGS: LUNGS: Mild pulmonary vascular congestion is noted. The ET tube is seen at appropriate position. PLEURA: Blunting of the right costophrenic angle noted. CARDIOVASCULAR: There is aortic atherosclerotic calcification present. The cardiac silhouette is enlarged. Post sternotomy changes are noted. Mild pulmonary vascular congestion is noted. OSSEOUS STRUCTURES: No significant abnormalities. VISUALIZED UPPER ABDOMEN: Normal. OTHER FINDINGS: None. IMPRESSION: Cardiomegaly and pulmonary vascular congestion noted.
[2018-05-16 12:45] LABS: TROPONIN I 0.55 ng/mL (0.00-0.120)
[2018-05-16] MEDS ORDERED: Vancomycin 1 gm/NS 200 ml 1 GM/200 ML BAG IVPB SCH (13:00)
--- NOTE | 2018-05-16 15:39 | PCM.PROC ---
<Anthony Dwyer - Last Filed: 05/16/18 15:45> Procedures Attestation:: I certify that I have explained the specified Operation(s) or Procedure(s), risks, benefits and reasonable alternatives to the Patient and/or other person responsible. The opportunity was given to ask questions and all questions answered - Central Line Placement Right Internal Jugular Hemodialysis Access Aseptic technique was employed throughout the procedure: Hand Hygiene done prior to procedure, Full sterile barriers (mask, hair cover, sterile gown, sterile gloves), Full body sterile drape, Chloraprep Antiseptic: 30 second prep for IJ or SC sites Pt. Placed on Pulse Ox Monitor: Yes Central Line Prep: Chlorhexidine-Alcohol Combination Local Anesthesia Used: Lidocaine 1% Amount of Anesthesia Used (mls): 10 (Pt on precedex gtt) Ultrasound Used for Placement: Yes Central Line Lumen Inserted: triple Central Line Length: 20 cm Post Procedure: Good Blood Return, All Ports Aspirated, Flushed, Capped Secured by: Suture Post procedure dressing: Chlorhexidine disc (Biopatch) Post Procedure X-Ray: Yes Patient Tolerated Procedure: Well Immediate Complications: None <Julien Fuller - Last Filed: 05/16/18 16:35> Attending/Attestation - Attestation I have personally seen and examined this patient.: Yes I have fully participated in the care of the patient.: Yes I have reviewed all pertinent clinical information, including history, physical exam and plan: Yes Notes (Text): 05/16/18 16:34 I assisted and participated in this procedure with resident physician, Dr. Dwyer. There were no complications and the patient tolerated the procedure well.
--- NOTE | 2018-05-16 16:47 | RAD ---
Date of service: 05/16/2018 HISTORY: confirm placement of IJ TLC COMPARISON: Comparison is made with the previous same-day exam TECHNIQUE: 1 view obtained. FINDINGS: LUNGS: Moderate pulmonary vascular congestion is again noted. The ET tube is seen at appropriate position. PLEURA: No significant pleural effusion identified, no pneumothorax apparent. CARDIOVASCULAR: Atherosclerotic calcifications seen at the aortic knob. Cardiomegaly is again noted. Moderate pulmonary vascular congestion. OSSEOUS STRUCTURES: No significant abnormalities. VISUALIZED UPPER ABDOMEN: Normal. OTHER FINDINGS: Interval insertion of right jugular central line with the tip is seen extending to the right aspect of the heart. IMPRESSION: Low position of the new right jugular central line. Otherwise no significant interval changes.
--- NOTE | 2018-05-16 16:56 | RAD ---
Date of service: 05/15/2018 HISTORY: CHF COMPARISON: No prior. TECHNIQUE: 1 view obtained. FINDINGS: LUNGS: [id number] pulmonary vascular congestion. PLEURA: No significant pleural effusion identified, no pneumothorax apparent. CARDIOVASCULAR: Atherosclerotic calcification noted. Moderate cardiomegaly. Moderate pulmonary vascular congestion. OSSEOUS STRUCTURES: No significant abnormalities. VISUALIZED UPPER ABDOMEN: Normal. OTHER FINDINGS: None. IMPRESSION: Megaly and pulmonary vascular congestion suggestive of CHF.
--- NOTE | 2018-05-16 16:59 | RAD ---
Date of service: 05/16/2018 HISTORY: sepsis COMPARISON: Comparison is made with 05/15/2018 TECHNIQUE: 1 view obtained. FINDINGS: LUNGS: Reticular opacity at the left lung is again noted. The ET tube is seen at appropriate position. Mild to moderate pulmonary vascular congestion noted. PLEURA: No significant pleural effusion identified, no pneumothorax apparent. CARDIOVASCULAR: Atherosclerotic calcification are noted. The cardiac silhouette is enlarged. . OSSEOUS STRUCTURES: No significant abnormalities. VISUALIZED UPPER ABDOMEN: Normal. OTHER FINDINGS: None. IMPRESSION: Cardiomegaly and pulmonary vascular congestion noted.
--- NOTE | 2018-05-16 17:35 | CP.CCUPN ---
CCU Subjective - Physician Review Events Since Last Encounter (Free Text): 05/16/18 17:32 comatose. CCU Objective - Vital Signs / Intake & Output Vital Signs (Last 4 hours): Vital Signs Pulse Resp BP Pulse Ox 05/16/18 16:03 102 H 19 128/54 L 99 05/16/18 15:03 101 H 19 139/57 L 100 05/16/18 14:30 104 H 100 05/16/18 14:04 105 H 19 120/54 L 98 05/16/18 13:34 105 H 20 134/54 L 100 Intake and Output (Last 8hrs): Intake & Output 05/16/18 05/16/18 05/16/18 06:59 14:59 22:59 Intake Total 1133.41 1389.1 316.8 Output Total 100 35 25 Balance 1033.41 1354.1 291.8 Intake: IV 60.2 112.8 15 Intake, IV Amount 1073.21 1276.3 301.8 Left Antecubital 49.45 57.2 Left Forearm 252.8 380 80 Right Antecubital 750 800 200 Right Internal Jugular 11.6 Trialysis Catheter right ac y port 20.96 39.1 10.2 Output: Urine 100 35 25 Urethral (Wolf) 100 35 25 - Medications Active Medications: Active Medications Generic Name Dose Route Start Last Admin Trade Name Freq PRN Reason Stop Dose Admin Acetaminophen 650 mg 05/15/18 17:47 Tylenol 325mg Tab PO Q6 PRN Fever >100.4 F or Pain Aspirin 81 mg 05/16/18 10:00 05/16/18 13:01 Aspirin Chewable PO 81 mg DAILY LAURENCE Administration Famotidine 20 mg 05/15/18 19:30 05/16/18 12:16 Pepcid PO 20 mg DAILY LAURENCE Administration Ferric Sodium Gluconate Complex 125 mg 05/16/18 10:00 05/16/18 10:56 Ferrlecit IVPB 05/24/18 10:01 125 mg DAILY LAURENCE Administration Glipizide 10 mg 05/16/18 10:00 05/16/18 17:12 Glucotrol PO Not Given BID LAURENCE Vancomycin/Sodium Chloride 1 gm in 200 mls @ 133 mls/hr 05/16/18 10:00 05/16/18 11:01 Vancomycin 1 Gm/Ns 200 Ml IVPB 05/21/18 10:01 133 mls/hr Q24H LAURENCE Administration Protocol Piperacillin Sod/Tazobactam Sod 2.25 gm in 50 mls @ 100 mls/hr 05/15/18 19:00 05/16/18 10:53 Zosyn 2.25 Gm Iv Premix IVPB 100 mls/hr Q8H LAURENCE Administration Protocol Dexmedetomidine HCl 200 mcg/ 50 mls @ 3.4 mls/hr 05/15/18 20:23 05/16/18 17:14 Sodium Chloride IV 0.5 mcg/kg/hr TITR PRN 8.5 mls/hr Sedation Titration Protocol 0.2 MCG/KG/HR Dopamine HCl/Dextrose 400 mg in 250 mls @ 5.103 mls/hr 05/15/18 22:12 05/16/18 13:27 Dopamine 400mg/250ml D5w IV 0 mcg/kg/min .Q24H PRN 0 mls/hr TITRATE PER MD ORDER Titration Protocol 2 MCG/KG/MIN Sodium Chloride 1,000 mls @ 100 mls/hr 05/15/18 23:04 05/16/18 17:12 Sodium Chloride 0.9% IV 100 mls/hr .Q10H LAURENCE Administration Dextrose 1,000 mls @ 40 mls/hr 05/15/18 23:45 05/15/18 23:50 Dextrose 5% In Water 1000 Ml IV 40 mls/hr .Q24H LAURENCE Administration Norepinephrine Bitartrate 8 mg 258 mls @ 7.74 mls/hr 05/16/18 11:55 05/16/18 13:30 / Sodium Chloride IV 3 mcg/min .Q24H PRN 5.81 mls/hr TITRATE PER MD ORDER Titration Protocol 4 MCG/MIN Methylprednisolone 40 mg 05/15/18 22:00 05/16/18 10:00 Solu-Medrol IVP 40 mg Q12 LAURENCE Administration Morphine Sulfate 2 mg 05/15/18 16:29 Morphine IVP Q4 PRN Pain Rosuvastatin Calcium 5 mg 05/15/18 22:00 05/15/18 21:55 Crestor PO 5 mg HS LAURENCE Administration - Patient Studies Lab Studies: Microbiology Studies 05/15/18 11:30 Blood Culture - Preliminary Blood Gram Pos Cocci In Chains Gram Stain - Final 05/15/18 11:20 S.aureus & Coag-Neg Staph PNA FISH - Final Blood Blood Culture - Preliminary Gram Pos Cocci In Chains Gram Stain - Final Lab Studies 05/16/18 05/16/18 05/16/18 Range/Units 16:30 13:06 06:30 WBC (4.8-10.8) K/uL RBC (3.80-5.20) Mil/uL Hgb (11.0-16.0) g/dL Hct (34.0-47.0) % MCV (81.0-99.0) fL MCH (27.0-31.0) pg MCHC (33.0-37.0) g/dL RDW (11.5-14.5) % Plt Count (130-400) K/uL MPV (7.2-11.7) fL Haptoglobin (30.0-200.0) mg/dL Puncture Site pCO2 (35-45) mm/Hg pO2 (80-100) mm/Hg HCO3 (21-28) mmol/L ABG pH (7.35-7.45) ABG Total CO2 (22-28) mmol/L ABG O2 Saturation (95-98) % ABG Base Excess (-2.0-3.0) mmol/L ABG Hemoglobin (11.7-17.4) g/dL ABG Carboxyhemoglobin (0.5-1.5) % POC ABG HHb (Measured) (0.0-5.0) % ABG Methemoglobin (0.0-3.0) % Nicolás Test ABG Potassium (3.6-5.2) mmol/L A-a O2 Difference mm/Hg Respiratory Index Hgb O2 Saturation (95.0-98.0) % Sodium (132-148) mmol/l Chloride (98-107) mmol/L Glucose (65-105) mg/dl Lactate (0.7-2.1) mmol/L Vent Mode Mechanical Rate FiO2 % Tidal Volume PEEP Crit Value Called To Crit Value Called By Crit Value Read Back Blood Gas Notified Time Potassium (3.6-5.2) mmol/L Carbon Dioxide (22-30) mmol/L Anion Gap (10-20) BUN (7-17) mg/dL Creatinine (0.7-1.2) mg/dL Est GFR ( Amer) Est GFR (Non-Af Amer) POC Glucose (mg/dL) 78 (65-110) mg/dL Random Glucose (65-105) mg/dL Hemoglobin A1c (4.2-6.5) % Lactic Acid (0.7-2.1) mmol/L Calcium (8.6-10.4) mg/dl Phosphorus (2.5-4.5) mg/dL Magnesium (1.6-2.3) mg/dL Iron (37-170) ug/dL TIBC (250-450) ug/dL % Saturation (20-55) Ferritin ng/mL Total Bilirubin (0.2-1.3) mg/dL AST (14-36) U/L ALT (9-52) U/L Alkaline Phosphatase (38-126) U/L Troponin I (0.00-0.120) ng/mL NT-Pro-B Natriuret Pep (0-900) pg/mL Total Protein (6.3-8.3) g/dL Albumin (3.5-5.0) g/dL Globulin (2.2-3.9) gm/dL Albumin/Globulin Ratio (1.0-2.1) Vitamin B12 (239-931) pg/mL 25-OH Vitamin D Total < 12.8 L (30.0-100.0) NG/ML Folate ng/mL Free T4 (0.78-2.19) ng/dL TSH 3rd Generation (0.46-4.68) mIU/L Arterial Blood Potassium (3.6-5.2) mmol/L Urine Color (YELLOW) Urine Clarity (Clear) Urine pH (5.0-8.0) Ur Specific Cordell (1.003-1.030) Urine Protein (NEGATIVE) mg/dL Urine Glucose (UA) (Normal) mg/dL Urine Ketones (NEGATIVE) mg/dL Urine Blood (NEGATIVE) Urine Nitrate (NEGATIVE) Urine Bilirubin (NEGATIVE) Urine Urobilinogen (0.2-1.0) mg/dL Ur Leukocyte Esterase (Negative) Mia/uL Urine WBC (Auto) (0-5) /hpf Urine RBC (Auto) (0-3) /hpf Urine WBC Clumps (Auto) (NONE) /hpf Ur Squamous Epith Cells (0-5) /hpf Amorphous Sediment (<OCC) /ul Urine Bacteria (<OCC) Hyaline Casts (0-2) /lpf Hepatitis A IgM Ab (NEGATIVE) Hep Bs Antigen (NEGATIVE) Hep B Core IgM Ab (NEGATIVE) Hepatitis C Antibody (NEGATIVE) HIV 1&2 Antibody Screen (NEGATIVE) S. pneumoniae Antigen Negative (NEGATIVE) 05/16/18 05/16/18 05/16/18 Range/Units 06:30 06:30 05:45 WBC 1.9 L* (4.8-10.8) K/uL RBC 2.69 L (3.80-5.20) Mil/uL Hgb 9.0 L (11.0-16.0) g/dL Hct 28.4 L (34.0-47.0) % MCV 105.7 H (81.0-99.0) fL MCH 33.6 H (27.0-31.0) pg MCHC 31.8 L (33.0-37.0) g/dL RDW 17.9 H (11.5-14.5) % Plt Count 61 L (130-400) K/uL MPV 10.7 (7.2-11.7) fL Haptoglobin (30.0-200.0) mg/dL Puncture Site Rb pCO2 39 (35-45) mm/Hg pO2 102 H (80-100) mm/Hg HCO3 19.3 L (21-28) mmol/L ABG pH 7.29 L (7.35-7.45) ABG Total CO2 20.0 L (22-28) mmol/L ABG O2 Saturation 96.4 (95-98) % ABG Base Excess -7.2 L (-2.0-3.0) mmol/L ABG Hemoglobin 9.1 L (11.7-17.4) g/dL ABG Carboxyhemoglobin 0.3 L (0.5-1.5) % POC ABG HHb (Measured) 3.6 (0.0-5.0) % ABG Methemoglobin 0.3 (0.0-3.0) % Nicolás Test Na ABG Potassium (3.6-5.2) mmol/L A-a O2 Difference 170.0 mm/Hg Respiratory Index 1.7 Hgb O2 Saturation 95.7 (95.0-98.0) % Sodium 140 (132-148) mmol/l Chloride 112 H (98-107) mmol/L Glucose (65-105) mg/dl Lactate (0.7-2.1) mmol/L Vent Mode Prvc Mechanical Rate 20 FiO2 45.0 % Tidal Volume 400 PEEP 5 Crit Value Called To Crit Value Called By Crit Value Read Back Blood Gas Notified Time Potassium 3.8 (3.6-5.2) mmol/L Carbon Dioxide 18 L (22-30) mmol/L Anion Gap 14 (10-20) BUN 62 H (7-17) mg/dL Creatinine 3.3 H (0.7-1.2) mg/dL Est GFR ( Amer) 17 Est GFR (Non-Af Amer) 14 POC Glucose (mg/dL) (65-110) mg/dL Random Glucose 81 D (65-105) mg/dL Hemoglobin A1c (4.2-6.5) % Lactic Acid (0.7-2.1) mmol/L Calcium 7.9 L (8.6-10.4) mg/dl Phosphorus 5.4 H (2.5-4.5) mg/dL Magnesium 1.8 (1.6-2.3) mg/dL Iron (37-170) ug/dL TIBC (250-450) ug/dL % Saturation (20-55) Ferritin ng/mL Total Bilirubin 1.0 (0.2-1.3) mg/dL AST 76 H D (14-36) U/L ALT 16 (9-52) U/L Alkaline Phosphatase 31 L D (38-126) U/L Troponin I 0.5500 H* (0.00-0.120) ng/mL NT-Pro-B Natriuret Pep (0-900) pg/mL Total Protein 5.5 L (6.3-8.3) g/dL Albumin 2.7 L (3.5-5.0) g/dL Globulin 2.7 (2.2-3.9) gm/dL Albumin/Globulin Ratio 1.0 (1.0-2.1) Vitamin B12 (239-931) pg/mL 25-OH Vitamin D Total (30.0-100.0) NG/ML Folate ng/mL Free T4 (0.78-2.19) ng/dL TSH 3rd Generation (0.46-4.68) mIU/L Arterial Blood Potassium (3.6-5.2) mmol/L Urine Color (YELLOW) Urine Clarity (Clear) Urine pH (5.0-8.0) Ur Specific Cordell (1.003-1.030) Urine Protein (NEGATIVE) mg/dL Urine Glucose (UA) (Normal) mg/dL Urine Ketones (NEGATIVE) mg/dL Urine Blood (NEGATIVE) Urine Nitrate (NEGATIVE) Urine Bilirubin (NEGATIVE) Urine Urobilinogen (0.2-1.0) mg/dL Ur Leukocyte Esterase (Negative) Mia/uL Urine WBC (Auto) (0-5) /hpf Urine RBC (Auto) (0-3) /hpf Urine WBC Clumps (Auto) (NONE) /hpf Ur Squamous Epith Cells (0-5) /hpf Amorphous Sediment (<OCC) /ul Urine Bacteria (<OCC) Hyaline Casts (0-2) /lpf Hepatitis A IgM Ab (NEGATIVE) Hep Bs Antigen (NEGATIVE) Hep B Core IgM Ab (NEGATIVE) Hepatitis C Antibody (NEGATIVE) HIV 1&2 Antibody Screen (NEGATIVE) S. pneumoniae Antigen (NEGATIVE) 05/16/18 05/16/18 05/15/18 Range/Units 04:02 01:33 22:44 WBC (4.8-10.8) K/uL RBC (3.80-5.20) Mil/uL Hgb (11.0-16.0) g/dL Hct (34.0-47.0) % MCV (81.0-99.0) fL MCH (27.0-31.0) pg MCHC (33.0-37.0) g/dL RDW (11.5-14.5) % Plt Count (130-400) K/uL MPV (7.2-11.7) fL Haptoglobin (30.0-200.0) mg/dL Puncture Site pCO2 (35-45) mm/Hg pO2 (80-100) mm/Hg HCO3 (21-28) mmol/L ABG pH (7.35-7.45) ABG Total CO2 (22-28) mmol/L ABG O2 Saturation (95-98) % ABG Base Excess (-2.0-3.0) mmol/L ABG Hemoglobin (11.7-17.4) g/dL ABG Carboxyhemoglobin (0.5-1.5) % POC ABG HHb (Measured) (0.0-5.0) % ABG Methemoglobin (0.0-3.0) % Nicolás Test ABG Potassium (3.6-5.2) mmol/L A-a O2 Difference mm/Hg Respiratory Index Hgb O2 Saturation (95.0-98.0) % Sodium (132-148) mmol/l Chloride (98-107) mmol/L Glucose (65-105) mg/dl Lactate (0.7-2.1) mmol/L Vent Mode Mechanical Rate FiO2 % Tidal Volume PEEP Crit Value Called To Crit Value Called By Crit Value Read Back Blood Gas Notified Time Potassium (3.6-5.2) mmol/L Carbon Dioxide (22-30) mmol/L Anion Gap (10-20) BUN (7-17) mg/dL Creatinine (0.7-1.2) mg/dL Est GFR ( Amer) Est GFR (Non-Af Amer) POC Glucose (mg/dL) (65-110) mg/dL Random Glucose (65-105) mg/dL Hemoglobin A1c (4.2-6.5) % Lactic Acid 4.4 H* (0.7-2.1) mmol/L Calcium (8.6-10.4) mg/dl Phosphorus (2.5-4.5) mg/dL Magnesium (1.6-2.3) mg/dL Iron (37-170) ug/dL TIBC (250-450) ug/dL % Saturation (20-55) Ferritin ng/mL Total Bilirubin (0.2-1.3) mg/dL AST (14-36) U/L ALT (9-52) U/L Alkaline Phosphatase (38-126) U/L Troponin I (0.00-0.120) ng/mL NT-Pro-B Natriuret Pep (0-900) pg/mL Total Protein (6.3-8.3) g/dL Albumin (3.5-5.0) g/dL Globulin (2.2-3.9) gm/dL Albumin/Globulin Ratio (1.0-2.1) Vitamin B12 (239-931) pg/mL 25-OH Vitamin D Total (30.0-100.0) NG/ML Folate ng/mL Free T4 (0.78-2.19) ng/dL TSH 3rd Generation (0.46-4.68) mIU/L Arterial Blood Potassium (3.6-5.2) mmol/L Urine Color Coleen Coleen (YELLOW) Urine Clarity Turbid Hazy (Clear) Urine pH 7.0 7.0 (5.0-8.0) Ur Specific Cordell 1.017 1.013 (1.003-1.030) Urine Protein 2+ H 2+ H (NEGATIVE) mg/dL Urine Glucose (UA) Normal Normal (Normal) mg/dL Urine Ketones Trace Negative (NEGATIVE) mg/dL Urine Blood 3+ H 1+ H (NEGATIVE) Urine Nitrate Negative Negative (NEGATIVE) Urine Bilirubin Negative Negative (NEGATIVE) Urine Urobilinogen Normal 2.0 H (0.2-1.0) mg/dL Ur Leukocyte Esterase 1+ H Trace (Negative) Mia/uL Urine WBC (Auto) 127 H 7 H (0-5) /hpf Urine RBC (Auto) 427 H 4 H (0-3) /hpf Urine WBC Clumps (Auto) Many H (NONE) /hpf Ur Squamous Epith Cells 53 H 2 (0-5) /hpf Amorphous Sediment Few H Moderate H (<OCC) /ul Urine Bacteria Many H Occ H (<OCC) Hyaline Casts 3-5 H (0-2) /lpf Hepatitis A IgM Ab (NEGATIVE) Hep Bs Antigen (NEGATIVE) Hep B Core IgM Ab (NEGATIVE) Hepatitis C Antibody (NEGATIVE) HIV 1&2 Antibody Screen (NEGATIVE) S. pneumoniae Antigen (NEGATIVE) 05/15/18 05/15/18 05/15/18 Range/Units 21:54 20:56 18:39 WBC (4.8-10.8) K/uL RBC (3.80-5.20) Mil/uL Hgb (11.0-16.0) g/dL Hct (34.0-47.0) % MCV (81.0-99.0) fL MCH (27.0-31.0) pg MCHC (33.0-37.0) g/dL RDW (11.5-14.5) % Plt Count (130-400) K/uL MPV (7.2-11.7) fL Haptoglobin (30.0-200.0) mg/dL Puncture Site B pCO2 35 (35-45) mm/Hg pO2 230 H (80-100) mm/Hg HCO3 16.4 L (21-28) mmol/L ABG pH 7.25 L (7.35-7.45) ABG Total CO2 16.4 L (22-28) mmol/L ABG O2 Saturation 97.0 (95-98) % ABG Base Excess -11.0 L (-2.0-3.0) mmol/L ABG Hemoglobin (11.7-17.4) g/dL ABG Carboxyhemoglobin (0.5-1.5) % POC ABG HHb (Measured) (0.0-5.0) % ABG Methemoglobin (0.0-3.0) % Nicolás Test Na ABG Potassium 3.5 L (3.6-5.2) mmol/L A-a O2 Difference 154.0 mm/Hg Respiratory Index 0.7 Hgb O2 Saturation (95.0-98.0) % Sodium 141.0 (132-148) mmol/l Chloride 111.0 H (98-107) mmol/L Glucose 72 (65-105) mg/dl Lactate 4.7 H* (0.7-2.1) mmol/L Vent Mode Prvc Mechanical Rate 20 FiO2 60.0 % Tidal Volume 400 PEEP 5 Crit Value Called To Dr. cooney Crit Value Called By Isaiah pascual Crit Value Read Back Y Blood Gas Notified Time 215 Potassium (3.6-5.2) mmol/L Carbon Dioxide (22-30) mmol/L Anion Gap (10-20) BUN (7-17) mg/dL Creatinine (0.7-1.2) mg/dL Est GFR ( Amer) Est GFR (Non-Af Amer) POC Glucose (mg/dL) 95 (65-110) mg/dL Random Glucose (65-105) mg/dL Hemoglobin A1c (4.2-6.5) % Lactic Acid 5.8 H* (0.7-2.1) mmol/L Calcium (8.6-10.4) mg/dl Phosphorus (2.5-4.5) mg/dL Magnesium (1.6-2.3) mg/dL Iron (37-170) ug/dL TIBC (250-450) ug/dL % Saturation (20-55) Ferritin ng/mL Total Bilirubin (0.2-1.3) mg/dL AST (14-36) U/L ALT (9-52) U/L Alkaline Phosphatase (38-126) U/L Troponin I (0.00-0.120) ng/mL NT-Pro-B Natriuret Pep (0-900) pg/mL Total Protein (6.3-8.3) g/dL Albumin (3.5-5.0) g/dL Globulin (2.2-3.9) gm/dL Albumin/Globulin Ratio (1.0-2.1) Vitamin B12 (239-931) pg/mL 25-OH Vitamin D Total (30.0-100.0) NG/ML Folate ng/mL Free T4 (0.78-2.19) ng/dL TSH 3rd Generation (0.46-4.68) mIU/L Arterial Blood Potassium 3.5 L (3.6-5.2) mmol/L Urine Color (YELLOW) Urine Clarity (Clear) Urine pH (5.0-8.0) Ur Specific Cordell (1.003-1.030) Urine Protein (NEGATIVE) mg/dL Urine Glucose (UA) (Normal) mg/dL Urine Ketones (NEGATIVE) mg/dL Urine Blood (NEGATIVE) Urine Nitrate (NEGATIVE) Urine Bilirubin (NEGATIVE) Urine Urobilinogen (0.2-1.0) mg/dL Ur Leukocyte Esterase (Negative) Mia/uL Urine WBC (Auto) (0-5) /hpf Urine RBC (Auto) (0-3) /hpf Urine WBC Clumps (Auto) (NONE) /hpf Ur Squamous Epith Cells (0-5) /hpf Amorphous Sediment (<OCC) /ul Urine Bacteria (<OCC) Hyaline Casts (0-2) /lpf Hepatitis A IgM Ab (NEGATIVE) Hep Bs Antigen (NEGATIVE) Hep B Core IgM Ab (NEGATIVE) Hepatitis C Antibody (NEGATIVE) HIV 1&2 Antibody Screen (NEGATIVE) S. pneumoniae Antigen (NEGATIVE) 05/15/18 05/15/18 05/15/18 Range/Units 18:24 18:24 17:49 WBC (4.8-10.8) K/uL RBC (3.80-5.20) Mil/uL Hgb (11.0-16.0) g/dL Hct (34.0-47.0) % MCV (81.0-99.0) fL MCH (27.0-31.0) pg MCHC (33.0-37.0) g/dL RDW (11.5-14.5) % Plt Count (130-400) K/uL MPV (7.2-11.7) fL Haptoglobin (30.0-200.0) mg/dL Puncture Site pCO2 (35-45) mm/Hg pO2 (80-100) mm/Hg HCO3 (21-28) mmol/L ABG pH (7.35-7.45) ABG Total CO2 (22-28) mmol/L ABG O2 Saturation (95-98) % ABG Base Excess (-2.0-3.0) mmol/L ABG Hemoglobin (11.7-17.4) g/dL ABG Carboxyhemoglobin (0.5-1.5) % POC ABG HHb (Measured) (0.0-5.0) % ABG Methemoglobin (0.0-3.0) % Nicolás Test ABG Potassium (3.6-5.2) mmol/L A-a O2 Difference mm/Hg Respiratory Index Hgb O2 Saturation (95.0-98.0) % Sodium (132-148) mmol/l Chloride (98-107) mmol/L Glucose (65-105) mg/dl Lactate (0.7-2.1) mmol/L Vent Mode Mechanical Rate FiO2 % Tidal Volume PEEP Crit Value Called To Crit Value Called By Crit Value Read Back Blood Gas Notified Time Potassium (3.6-5.2) mmol/L Carbon Dioxide (22-30) mmol/L Anion Gap (10-20) BUN (7-17) mg/dL Creatinine (0.7-1.2) mg/dL Est GFR ( Amer) Est GFR (Non-Af Amer) POC Glucose (mg/dL) (65-110) mg/dL Random Glucose (65-105) mg/dL Hemoglobin A1c 6.5 (4.2-6.5) % Lactic Acid (0.7-2.1) mmol/L Calcium (8.6-10.4) mg/dl Phosphorus (2.5-4.5) mg/dL Magnesium (1.6-2.3) mg/dL Iron (37-170) ug/dL TIBC (250-450) ug/dL % Saturation (20-55) Ferritin ng/mL Total Bilirubin (0.2-1.3) mg/dL AST (14-36) U/L ALT (9-52) U/L Alkaline Phosphatase (38-126) U/L Troponin I (0.00-0.120) ng/mL NT-Pro-B Natriuret Pep [id number] H (0-900) pg/mL Total Protein (6.3-8.3) g/dL Albumin (3.5-5.0) g/dL Globulin (2.2-3.9) gm/dL Albumin/Globulin Ratio (1.0-2.1) Vitamin B12 (239-931) pg/mL 25-OH Vitamin D Total (30.0-100.0) NG/ML Folate ng/mL Free T4 0.89 (0.78-2.19) ng/dL TSH 3rd Generation (0.46-4.68) mIU/L Arterial Blood Potassium (3.6-5.2) mmol/L Urine Color (YELLOW) Urine Clarity (Clear) Urine pH (5.0-8.0) Ur Specific Cordell (1.003-1.030) Urine Protein (NEGATIVE) mg/dL Urine Glucose (UA) (Normal) mg/dL Urine Ketones (NEGATIVE) mg/dL Urine Blood (NEGATIVE) Urine Nitrate (NEGATIVE) Urine Bilirubin (NEGATIVE) Urine Urobilinogen (0.2-1.0) mg/dL Ur Leukocyte Esterase (Negative) Mia/uL Urine WBC (Auto) (0-5) /hpf Urine RBC (Auto) (0-3) /hpf Urine WBC Clumps (Auto) (NONE) /hpf Ur Squamous Epith Cells (0-5) /hpf Amorphous Sediment (<OCC) /ul Urine Bacteria (<OCC) Hyaline Casts (0-2) /lpf Hepatitis A IgM Ab (NEGATIVE) Hep Bs Antigen (NEGATIVE) Hep B Core IgM Ab (NEGATIVE) Hepatitis C Antibody (NEGATIVE) HIV 1&2 Antibody Screen (NEGATIVE) S. pneumoniae Antigen (NEGATIVE) 05/15/18 05/15/18 05/15/18 Range/Units 17:49 17:49 17:49 WBC (4.8-10.8) K/uL RBC (3.80-5.20) Mil/uL Hgb (11.0-16.0) g/dL Hct (34.0-47.0) % MCV (81.0-99.0) fL MCH (27.0-31.0) pg MCHC (33.0-37.0) g/dL RDW (11.5-14.5) % Plt Count (130-400) K/uL MPV (7.2-11.7) fL Haptoglobin 92.8 (30.0-200.0) mg/dL Puncture Site pCO2 (35-45) mm/Hg pO2 (80-100) mm/Hg HCO3 (21-28) mmol/L ABG pH (7.35-7.45) ABG Total CO2 (22-28) mmol/L ABG O2 Saturation (95-98) % ABG Base Excess (-2.0-3.0) mmol/L ABG Hemoglobin (11.7-17.4) g/dL ABG Carboxyhemoglobin (0.5-1.5) % POC ABG HHb (Measured) (0.0-5.0) % ABG Methemoglobin (0.0-3.0) % Nicolás Test ABG Potassium (3.6-5.2) mmol/L A-a O2 Difference mm/Hg Respiratory Index Hgb O2 Saturation (95.0-98.0) % Sodium (132-148) mmol/l Chloride (98-107) mmol/L Glucose (65-105) mg/dl Lactate (0.7-2.1) mmol/L Vent Mode Mechanical Rate FiO2 % Tidal Volume PEEP Crit Value Called To Crit Value Called By Crit Value Read Back Blood Gas Notified Time Potassium (3.6-5.2) mmol/L Carbon Dioxide (22-30) mmol/L Anion Gap (10-20) BUN (7-17) mg/dL Creatinine (0.7-1.2) mg/dL Est GFR ( Amer) Est GFR (Non-Af Amer) POC Glucose (mg/dL) (65-110) mg/dL Random Glucose (65-105) mg/dL Hemoglobin A1c (4.2-6.5) % Lactic Acid (0.7-2.1) mmol/L Calcium (8.6-10.4) mg/dl Phosphorus (2.5-4.5) mg/dL Magnesium (1.6-2.3) mg/dL Iron (37-170) ug/dL TIBC (250-450) ug/dL % Saturation (20-55) Ferritin 73.4 ng/mL Total Bilirubin (0.2-1.3) mg/dL AST (14-36) U/L ALT (9-52) U/L Alkaline Phosphatase (38-126) U/L Troponin I (0.00-0.120) ng/mL NT-Pro-B Natriuret Pep (0-900) pg/mL Total Protein (6.3-8.3) g/dL Albumin (3.5-5.0) g/dL Globulin (2.2-3.9) gm/dL Albumin/Globulin Ratio (1.0-2.1) Vitamin B12 351 (239-931) pg/mL 25-OH Vitamin D Total (30.0-100.0) NG/ML Folate 13.7 ng/mL Free T4 (0.78-2.19) ng/dL TSH 3rd Generation 14.40 H (0.46-4.68) mIU/L Arterial Blood Potassium (3.6-5.2) mmol/L Urine Color (YELLOW) Urine Clarity (Clear) Urine pH (5.0-8.0) Ur Specific Cordell (1.003-1.030) Urine Protein (NEGATIVE) mg/dL Urine Glucose (UA) (Normal) mg/dL Urine Ketones (NEGATIVE) mg/dL Urine Blood (NEGATIVE) Urine Nitrate (NEGATIVE) Urine Bilirubin (NEGATIVE) Urine Urobilinogen (0.2-1.0) mg/dL Ur Leukocyte Esterase (Negative) Mia/uL Urine WBC (Auto) (0-5) /hpf Urine RBC (Auto) (0-3) /hpf Urine WBC Clumps (Auto) (NONE) /hpf Ur Squamous Epith Cells (0-5) /hpf Amorphous Sediment (<OCC) /ul Urine Bacteria (<OCC) Hyaline Casts (0-2) /lpf Hepatitis A IgM Ab (NEGATIVE) Hep Bs Antigen (NEGATIVE) Hep B Core IgM Ab (NEGATIVE) Hepatitis C Antibody (NEGATIVE) HIV 1&2 Antibody Screen (NEGATIVE) S. pneumoniae Antigen (NEGATIVE) 05/15/18 05/15/18 05/15/18 Range/Units 17:49 17:49 17:49 WBC (4.8-10.8) K/uL RBC (3.80-5.20) Mil/uL Hgb (11.0-16.0) g/dL Hct (34.0-47.0) % MCV (81.0-99.0) fL MCH (27.0-31.0) pg MCHC (33.0-37.0) g/dL RDW (11.5-14.5) % Plt Count (130-400) K/uL MPV (7.2-11.7) fL Haptoglobin (30.0-200.0) mg/dL Puncture Site pCO2 (35-45) mm/Hg pO2 (80-100) mm/Hg HCO3 (21-28) mmol/L ABG pH (7.35-7.45) ABG Total CO2 (22-28) mmol/L ABG O2 Saturation (95-98) % ABG Base Excess (-2.0-3.0) mmol/L ABG Hemoglobin (11.7-17.4) g/dL ABG Carboxyhemoglobin (0.5-1.5) % POC ABG HHb (Measured) (0.0-5.0) % ABG Methemoglobin (0.0-3.0) % Nicolás Test ABG Potassium (3.6-5.2) mmol/L A-a O2 Difference mm/Hg Respiratory Index Hgb O2 Saturation (95.0-98.0) % Sodium (132-148) mmol/l Chloride (98-107) mmol/L Glucose (65-105) mg/dl Lactate (0.7-2.1) mmol/L Vent Mode Mechanical Rate FiO2 % Tidal Volume PEEP Crit Value Called To Crit Value Called By Crit Value Read Back Blood Gas Notified Time Potassium (3.6-5.2) mmol/L Carbon Dioxide (22-30) mmol/L Anion Gap (10-20) BUN (7-17) mg/dL Creatinine (0.7-1.2) mg/dL Est GFR ( Amer) Est GFR (Non-Af Amer) POC Glucose (mg/dL) (65-110) mg/dL Random Glucose (65-105) mg/dL Hemoglobin A1c (4.2-6.5) % Lactic Acid (0.7-2.1) mmol/L Calcium (8.6-10.4) mg/dl Phosphorus (2.5-4.5) mg/dL Magnesium (1.6-2.3) mg/dL Iron 14 L (37-170) ug/dL TIBC 288 (250-450) ug/dL % Saturation 5 L (20-55) Ferritin ng/mL Total Bilirubin (0.2-1.3) mg/dL AST (14-36) U/L ALT (9-52) U/L Alkaline Phosphatase (38-126) U/L Troponin I (0.00-0.120) ng/mL NT-Pro-B Natriuret Pep (0-900) pg/mL Total Protein (6.3-8.3) g/dL Albumin (3.5-5.0) g/dL Globulin (2.2-3.9) gm/dL Albumin/Globulin Ratio (1.0-2.1) Vitamin B12 (239-931) pg/mL 25-OH Vitamin D Total (30.0-100.0) NG/ML Folate ng/mL Free T4 (0.78-2.19) ng/dL TSH 3rd Generation (0.46-4.68) mIU/L Arterial Blood Potassium (3.6-5.2) mmol/L Urine Color (YELLOW) Urine Clarity (Clear) Urine pH (5.0-8.0) Ur Specific Cordell (1.003-1.030) Urine Protein (NEGATIVE) mg/dL Urine Glucose (UA) (Normal) mg/dL Urine Ketones (NEGATIVE) mg/dL Urine Blood (NEGATIVE) Urine Nitrate (NEGATIVE) Urine Bilirubin (NEGATIVE) Urine Urobilinogen (0.2-1.0) mg/dL Ur Leukocyte Esterase (Negative) Mia/uL Urine WBC (Auto) (0-5) /hpf Urine RBC (Auto) (0-3) /hpf Urine WBC Clumps (Auto) (NONE) /hpf Ur Squamous Epith Cells (0-5) /hpf Amorphous Sediment (<OCC) /ul Urine Bacteria (<OCC) Hyaline Casts (0-2) /lpf Hepatitis A IgM Ab Negative (NEGATIVE) Hep Bs Antigen Negative (NEGATIVE) Hep B Core IgM Ab Negative (NEGATIVE) Hepatitis C Antibody Negative (NEGATIVE) HIV 1&2 Antibody Screen Negative (NEGATIVE) S. pneumoniae Antigen (NEGATIVE) 05/15/18 Range/Units 17:04 WBC (4.8-10.8) K/uL RBC (3.80-5.20) Mil/uL Hgb (11.0-16.0) g/dL Hct (34.0-47.0) % MCV (81.0-99.0) fL MCH (27.0-31.0) pg MCHC (33.0-37.0) g/dL RDW (11.5-14.5) % Plt Count (130-400) K/uL MPV (7.2-11.7) fL Haptoglobin (30.0-200.0) mg/dL Puncture Site pCO2 (35-45) mm/Hg pO2 (80-100) mm/Hg HCO3 (21-28) mmol/L ABG pH (7.35-7.45) ABG Total CO2 (22-28) mmol/L ABG O2 Saturation (95-98) % ABG Base Excess (-2.0-3.0) mmol/L ABG Hemoglobin (11.7-17.4) g/dL ABG Carboxyhemoglobin (0.5-1.5) % POC ABG HHb (Measured) (0.0-5.0) % ABG Methemoglobin (0.0-3.0) % Nicolás Test ABG Potassium (3.6-5.2) mmol/L A-a O2 Difference mm/Hg Respiratory Index Hgb O2 Saturation (95.0-98.0) % Sodium (132-148) mmol/l Chloride (98-107) mmol/L Glucose (65-105) mg/dl Lactate (0.7-2.1) mmol/L Vent Mode Mechanical Rate FiO2 % Tidal Volume PEEP Crit Value Called To Crit Value Called By Crit Value Read Back Blood Gas Notified Time Potassium (3.6-5.2) mmol/L Carbon Dioxide (22-30) mmol/L Anion Gap (10-20) BUN (7-17) mg/dL Creatinine (0.7-1.2) mg/dL Est GFR ( Amer) Est GFR (Non-Af Amer) POC Glucose (mg/dL) 116 H (65-110) mg/dL Random Glucose (65-105) mg/dL Hemoglobin A1c (4.2-6.5) % Lactic Acid (0.7-2.1) mmol/L Calcium (8.6-10.4) mg/dl Phosphorus (2.5-4.5) mg/dL Magnesium (1.6-2.3) mg/dL Iron (37-170) ug/dL TIBC (250-450) ug/dL % Saturation (20-55) Ferritin ng/mL Total Bilirubin (0.2-1.3) mg/dL AST (14-36) U/L ALT (9-52) U/L Alkaline Phosphatase (38-126) U/L Troponin I (0.00-0.120) ng/mL NT-Pro-B Natriuret Pep (0-900) pg/mL Total Protein (6.3-8.3) g/dL Albumin (3.5-5.0) g/dL Globulin (2.2-3.9) gm/dL Albumin/Globulin Ratio (1.0-2.1) Vitamin B12 (239-931) pg/mL 25-OH Vitamin D Total (30.0-100.0) NG/ML Folate ng/mL Free T4 (0.78-2.19) ng/dL TSH 3rd Generation (0.46-4.68) mIU/L Arterial Blood Potassium (3.6-5.2) mmol/L Urine Color (YELLOW) Urine Clarity (Clear) Urine pH (5.0-8.0) Ur Specific Cordell (1.003-1.030) Urine Protein (NEGATIVE) mg/dL Urine Glucose (UA) (Normal) mg/dL Urine Ketones (NEGATIVE) mg/dL Urine Blood (NEGATIVE) Urine Nitrate (NEGATIVE) Urine Bilirubin (NEGATIVE) Urine Urobilinogen (0.2-1.0) mg/dL Ur Leukocyte Esterase (Negative) Mia/uL Urine WBC (Auto) (0-5) /hpf Urine RBC (Auto) (0-3) /hpf Urine WBC Clumps (Auto) (NONE) /hpf Ur Squamous Epith Cells (0-5) /hpf Amorphous Sediment (<OCC) /ul Urine Bacteria (<OCC) Hyaline Casts (0-2) /lpf Hepatitis A IgM Ab (NEGATIVE) Hep Bs Antigen (NEGATIVE) Hep B Core IgM Ab (NEGATIVE) Hepatitis C Antibody (NEGATIVE) HIV 1&2 Antibody Screen (NEGATIVE) S. pneumoniae Antigen (NEGATIVE) Laboratory Results - last 24 hr 05/15/18 05/15/18 05/15/18 17:04 17:49 17:49 WBC RBC Hgb Hct MCV MCH MCHC RDW Plt Count MPV Haptoglobin Puncture Site pCO2 pO2 HCO3 ABG pH ABG Total CO2 ABG O2 Saturation ABG Base Excess ABG Hemoglobin ABG Carboxyhemoglobin POC ABG HHb (Measured) ABG Methemoglobin Nicolás Test ABG Potassium A-a O2 Difference Respiratory Index Hgb O2 Saturation Sodium Chloride Glucose Lactate Vent Mode Mechanical Rate FiO2 Tidal Volume PEEP Crit Value Called To Crit Value Called By Crit Value Read Back Blood Gas Notified Time Potassium Carbon Dioxide Anion Gap BUN Creatinine Est GFR ( Amer) Est GFR (Non-Af Amer) POC Glucose (mg/dL) 116 H Random Glucose Hemoglobin A1c Lactic Acid Calcium Phosphorus Magnesium Iron TIBC % Saturation Ferritin Total Bilirubin AST ALT Alkaline Phosphatase Troponin I NT-Pro-B Natriuret Pep Total Protein Albumin Globulin Albumin/Globulin Ratio Vitamin B12 25-OH Vitamin D Total Folate Free T4 TSH 3rd Generation Arterial Blood Potassium Urine Color Urine Clarity Urine pH Ur Specific Cordell Urine Protein Urine Glucose (UA) Urine Ketones Urine Blood Urine Nitrate Urine Bilirubin Urine Urobilinogen Ur Leukocyte Esterase Urine WBC (Auto) Urine RBC (Auto) Urine WBC Clumps (Auto) Ur Squamous Epith Cells Amorphous Sediment Urine Bacteria Hyaline Casts Hepatitis A IgM Ab Negative Hep Bs Antigen Negative Hep B Core IgM Ab Negative Hepatitis C Antibody Negative HIV 1&2 Antibody Screen Negative S. pneumoniae Antigen 05/15/18 05/15/18 05/15/18 17:49 17:49 17:49 WBC RBC Hgb Hct MCV MCH MCHC RDW Plt Count MPV Haptoglobin 92.8 Puncture Site pCO2 pO2 HCO3 ABG pH ABG Total CO2 ABG O2 Saturation ABG Base Excess ABG Hemoglobin ABG Carboxyhemoglobin POC ABG HHb (Measured) ABG Methemoglobin Nicolás Test ABG Potassium A-a O2 Difference Respiratory Index Hgb O2 Saturation Sodium Chloride Glucose Lactate Vent Mode Mechanical Rate FiO2 Tidal Volume PEEP Crit Value Called To Crit Value Called By Crit Value Read Back Blood Gas Notified Time Potassium Carbon Dioxide Anion Gap BUN Creatinine Est GFR ( Amer) Est GFR (Non-Af Amer) POC Glucose (mg/dL) Random Glucose Hemoglobin A1c Lactic Acid Calcium Phosphorus Magnesium Iron 14 L TIBC 288 % Saturation 5 L Ferritin 73.4 Total Bilirubin AST ALT Alkaline Phosphatase Troponin I NT-Pro-B Natriuret Pep Total Protein Albumin Globulin Albumin/Globulin Ratio Vitamin B12 351 25-OH Vitamin D Total Folate 13.7 Free T4 TSH 3rd Generation Arterial Blood Potassium Urine Color Urine Clarity Urine pH Ur Specific [place] Urine Protein Urine Glucose (UA) Urine Ketones Urine Blood Urine Nitrate Urine Bilirubin Urine Urobilinogen Ur Leukocyte Esterase Urine WBC (Auto) Urine RBC (Auto) Urine WBC Clumps (Auto) Ur Squamous Epith Cells Amorphous Sediment Urine Bacteria Hyaline Casts Hepatitis A IgM Ab Hep Bs Antigen Hep B Core IgM Ab Hepatitis C Antibody HIV 1&2 Antibody Screen S. pneumoniae Antigen 05/15/18 05/15/18 05/15/18 17:49 17:49 18:24 WBC RBC Hgb Hct MCV MCH MCHC RDW Plt Count MPV Haptoglobin Puncture Site pCO2 pO2 HCO3 ABG pH ABG Total CO2 ABG O2 Saturation ABG Base Excess ABG Hemoglobin ABG Carboxyhemoglobin POC ABG HHb (Measured) ABG Methemoglobin Nicolás Test ABG Potassium A-a O2 Difference Respiratory Index Hgb O2 Saturation Sodium Chloride Glucose Lactate Vent Mode Mechanical Rate FiO2 Tidal Volume PEEP Crit Value Called To Crit Value Called By Crit Value Read Back Blood Gas Notified Time Potassium Carbon Dioxide Anion Gap BUN Creatinine Est GFR ( Amer) Est GFR (Non-Af Amer) POC Glucose (mg/dL) Random Glucose Hemoglobin A1c 6.5 Lactic Acid Calcium Phosphorus Magnesium Iron TIBC % Saturation Ferritin Total Bilirubin AST ALT Alkaline Phosphatase Troponin I NT-Pro-B Natriuret Pep Total Protein Albumin Globulin Albumin/Globulin Ratio Vitamin B12 25-OH Vitamin D Total Folate Free T4 0.89 TSH 3rd Generation 14.40 H Arterial Blood Potassium Urine Color Urine Clarity Urine pH Ur Specific [place] Urine Protein Urine Glucose (UA) Urine Ketones Urine Blood Urine Nitrate Urine Bilirubin Urine Urobilinogen Ur Leukocyte Esterase Urine WBC (Auto) Urine RBC (Auto) Urine WBC Clumps (Auto) Ur Squamous Epith Cells Amorphous Sediment Urine Bacteria Hyaline Casts Hepatitis A IgM Ab Hep Bs Antigen Hep B Core IgM Ab Hepatitis C Antibody HIV 1&2 Antibody Screen S. pneumoniae Antigen 05/15/18 05/15/18 05/15/18 18:24 18:39 20:56 WBC RBC Hgb Hct MCV MCH MCHC RDW Plt Count MPV Haptoglobin Puncture Site pCO2 pO2 HCO3 ABG pH ABG Total CO2 ABG O2 Saturation ABG Base Excess ABG Hemoglobin ABG Carboxyhemoglobin POC ABG HHb (Measured) ABG Methemoglobin Nicolás Test ABG Potassium A-a O2 Difference Respiratory Index Hgb O2 Saturation Sodium Chloride Glucose Lactate Vent Mode Mechanical Rate FiO2 Tidal Volume PEEP Crit Value Called To Crit Value Called By Crit Value Read Back Blood Gas Notified Time Potassium Carbon Dioxide Anion Gap BUN Creatinine Est GFR ( Amer) Est GFR (Non-Af Amer) POC Glucose (mg/dL) 95 Random Glucose Hemoglobin A1c Lactic Acid 5.8 H* Calcium Phosphorus Magnesium Iron TIBC % Saturation Ferritin Total Bilirubin AST ALT Alkaline Phosphatase Troponin I NT-Pro-B Natriuret Pep 633598 H Total Protein Albumin Globulin Albumin/Globulin Ratio Vitamin B12 25-OH Vitamin D Total Folate Free T4 TSH 3rd Generation Arterial Blood Potassium Urine Color Urine Clarity Urine pH Ur Specific [place] Urine Protein Urine Glucose (UA) Urine Ketones Urine Blood Urine Nitrate Urine Bilirubin Urine Urobilinogen Ur Leukocyte Esterase Urine WBC (Auto) Urine RBC (Auto) Urine WBC Clumps (Auto) Ur Squamous Epith Cells Amorphous Sediment Urine Bacteria Hyaline Casts Hepatitis A IgM Ab Hep Bs Antigen Hep B Core IgM Ab Hepatitis C Antibody HIV 1&2 Antibody Screen S. pneumoniae Antigen 05/15/18 05/15/18 05/16/18 21:54 22:44 01:33 WBC RBC Hgb Hct MCV MCH MCHC RDW Plt Count MPV Haptoglobin Puncture Site B pCO2 35 pO2 230 H HCO3 16.4 L ABG pH 7.25 L ABG Total CO2 16.4 L ABG O2 Saturation 97.0 ABG Base Excess -11.0 L ABG Hemoglobin ABG Carboxyhemoglobin POC ABG HHb (Measured) ABG Methemoglobin Nicolás Test Na ABG Potassium 3.5 L A-a O2 Difference 154.0 Respiratory Index 0.7 Hgb O2 Saturation Sodium 141.0 Chloride 111.0 H Glucose 72 Lactate 4.7 H* Vent Mode Prvc Mechanical Rate 20 FiO2 60.0 Tidal Volume 400 PEEP 5 Crit Value Called To Dr. cooney Crit Value Called By Isaiah pascual Crit Value Read Back Y Blood Gas Notified Time 2156 Potassium Carbon Dioxide Anion Gap BUN Creatinine Est GFR ( Amer) Est GFR (Non-Af Amer) POC Glucose (mg/dL) Random Glucose Hemoglobin A1c Lactic Acid 4.4 H* Calcium Phosphorus Magnesium Iron TIBC % Saturation Ferritin Total Bilirubin AST ALT Alkaline Phosphatase Troponin I NT-Pro-B Natriuret Pep Total Protein Albumin Globulin Albumin/Globulin Ratio Vitamin B12 25-OH Vitamin D Total Folate Free T4 TSH 3rd Generation Arterial Blood Potassium 3.5 L Urine Color Coleen Urine Clarity Hazy Urine pH 7.0 Ur Specific Cordell 1.013 Urine Protein 2+ H Urine Glucose (UA) Normal Urine Ketones Negative Urine Blood 1+ H Urine Nitrate Negative Urine Bilirubin Negative Urine Urobilinogen 2.0 H Ur Leukocyte Esterase Trace Urine WBC (Auto) 7 H Urine RBC (Auto) 4 H Urine WBC Clumps (Auto) Ur Squamous Epith Cells 2 Amorphous Sediment Moderate H Urine Bacteria Occ H Hyaline Casts 3-5 H Hepatitis A IgM Ab Hep Bs Antigen Hep B Core IgM Ab Hepatitis C Antibody HIV 1&2 Antibody Screen S. pneumoniae Antigen 05/16/18 05/16/18 05/16/18 04:02 05:45 06:30 WBC 1.9 L* RBC 2.69 L Hgb 9.0 L Hct 28.4 L MCV 105.7 H MCH 33.6 H MCHC 31.8 L RDW 17.9 H Plt Count 61 L MPV 10.7 Haptoglobin Puncture Site Rb pCO2 39 pO2 102 H HCO3 19.3 L ABG pH 7.29 L ABG Total CO2 20.0 L ABG O2 Saturation 96.4 ABG Base Excess -7.2 L ABG Hemoglobin 9.1 L ABG Carboxyhemoglobin 0.3 L POC ABG HHb (Measured) 3.6 ABG Methemoglobin 0.3 Nicolás Test Na ABG Potassium A-a O2 Difference 170.0 Respiratory Index 1.7 Hgb O2 Saturation 95.7 Sodium Chloride Glucose Lactate Vent Mode Prvc Mechanical Rate 20 FiO2 45.0 Tidal Volume 400 PEEP 5 Crit Value Called To Crit Value Called By Crit Value Read Back Blood Gas Notified Time Potassium Carbon Dioxide Anion Gap BUN Creatinine Est GFR ( Amer) Est GFR (Non-Af Amer) POC Glucose (mg/dL) Random Glucose Hemoglobin A1c Lactic Acid Calcium Phosphorus Magnesium Iron TIBC % Saturation Ferritin Total Bilirubin AST ALT Alkaline Phosphatase Troponin I NT-Pro-B Natriuret Pep Total Protein Albumin Globulin Albumin/Globulin Ratio Vitamin B12 25-OH Vitamin D Total Folate Free T4 TSH 3rd Generation Arterial Blood Potassium Urine Color Coleen Urine Clarity Turbid Urine pH 7.0 Ur Specific Cordell 1.017 Urine Protein 2+ H Urine Glucose (UA) Normal Urine Ketones Trace Urine Blood 3+ H Urine Nitrate Negative Urine Bilirubin Negative Urine Urobilinogen Normal Ur Leukocyte Esterase 1+ H Urine WBC (Auto) 127 H Urine RBC (Auto) 427 H Urine WBC Clumps (Auto) Many H Ur Squamous Epith Cells 53 H Amorphous Sediment Few H Urine Bacteria Many H Hyaline Casts Hepatitis A IgM Ab Hep Bs Antigen Hep B Core IgM Ab Hepatitis C Antibody HIV 1&2 Antibody Screen S. pneumoniae Antigen 05/16/18 05/16/18 05/16/18 06:30 06:30 13:06 WBC RBC Hgb Hct MCV MCH MCHC RDW Plt Count MPV Haptoglobin Puncture Site pCO2 pO2 HCO3 ABG pH ABG Total CO2 ABG O2 Saturation ABG Base Excess ABG Hemoglobin ABG Carboxyhemoglobin POC ABG HHb (Measured) ABG Methemoglobin Nicolás Test ABG Potassium A-a O2 Difference Respiratory Index Hgb O2 Saturation Sodium 140 Chloride 112 H Glucose Lactate Vent Mode Mechanical Rate FiO2 Tidal Volume PEEP Crit Value Called To Crit Value Called By Crit Value Read Back Blood Gas Notified Time Potassium 3.8 Carbon Dioxide 18 L Anion Gap 14 BUN 62 H Creatinine 3.3 H Est GFR ( Amer) 17 Est GFR (Non-Af Amer) 14 POC Glucose (mg/dL) 78 Random Glucose 81 D Hemoglobin A1c Lactic Acid Calcium 7.9 L Phosphorus 5.4 H Magnesium 1.8 Iron TIBC % Saturation Ferritin Total Bilirubin 1.0 AST 76 H D ALT 16 Alkaline Phosphatase 31 L D Troponin I 0.5500 H* NT-Pro-B Natriuret Pep Total Protein 5.5 L Albumin 2.7 L Globulin 2.7 Albumin/Globulin Ratio 1.0 Vitamin B12 25-OH Vitamin D Total < 12.8 L Folate Free T4 TSH 3rd Generation Arterial Blood Potassium Urine Color Urine Clarity Urine pH Ur Specific Cord[place] Urine Protein Urine Glucose (UA) Urine Ketones Urine Blood Urine Nitrate Urine Bilirubin Urine Urobilinogen Ur Leukocyte Esterase Urine WBC (Auto) Urine RBC (Auto) Urine WBC Clumps (Auto) Ur Squamous Epith Cells Amorphous Sediment Urine Bacteria Hyaline Casts Hepatitis A IgM Ab Hep Bs Antigen Hep B Core IgM Ab Hepatitis C Antibody HIV 1&2 Antibody Screen S. pneumoniae Antigen 05/16/18 16:30 WBC RBC Hgb Hct MCV MCH MCHC RDW Plt Count MPV Haptoglobin Puncture Site pCO2 pO2 HCO3 ABG pH ABG Total CO2 ABG O2 Saturation ABG Base Excess ABG Hemoglobin ABG Carboxyhemoglobin POC ABG HHb (Measured) ABG Methemoglobin Nicolás Test ABG Potassium A-a O2 Difference Respiratory Index Hgb O2 Saturation Sodium Chloride Glucose Lactate Vent Mode Mechanical Rate FiO2 Tidal Volume PEEP Crit Value Called To Crit Value Called By Crit Value Read Back Blood Gas Notified Time Potassium Carbon Dioxide Anion Gap BUN Creatinine Est GFR ( Amer) Est GFR (Non-Af Amer) POC Glucose (mg/dL) Random Glucose Hemoglobin A1c Lactic Acid Calcium Phosphorus Magnesium Iron TIBC % Saturation Ferritin Total Bilirubin AST ALT Alkaline Phosphatase Troponin I NT-Pro-B Natriuret Pep Total Protein Albumin Globulin Albumin/Globulin Ratio Vitamin B12 25-OH Vitamin D Total Folate Free T4 TSH 3rd Generation Arterial Blood Potassium Urine Color Urine Clarity Urine pH Ur Specific [place] Urine Protein Urine Glucose (UA) Urine Ketones Urine Blood Urine Nitrate Urine Bilirubin Urine Urobilinogen Ur Leukocyte Esterase Urine WBC (Auto) Urine RBC (Auto) Urine WBC Clumps (Auto) Ur Squamous Epith Cells Amorphous Sediment Urine Bacteria Hyaline Casts Hepatitis A IgM Ab Hep Bs Antigen Hep B Core IgM Ab Hepatitis C Antibody HIV 1&2 Antibody Screen S. pneumoniae Antigen Negative Radiology Impressions: Radiology Impressions Chest X-Ray 05/15/18 16:34 IMPRESSION: Megaly and pulmonary vascular congestion suggestive of CHF. Chest X-Ray 05/15/18 20:19 IMPRESSION: Chest X-Ray 05/16/18 07:00 IMPRESSION: Cardiomegaly and pulmonary vascular congestion noted. Chest/Abdomen/Pelvis CT 05/16/18 09:45 IMPRESSION: Nodular opacities at the left lung lower lobe may represent pneumonia. Moderate cardiomegaly and small right pleural effusion associated with [id number] pulmonary vascular congestion. Hepatomegaly. Large gallstones without definite evidence of acute cholecystitis. Ascites noted. Moderate anasarca. Chest X-Ray 05/16/18 15:39 IMPRESSION: Low position of the new right jugular central line. Otherwise no significant interval changes. EKG/Cardiology Studies: Cardiology / EKG Studies 05/15/18 19:50 EKG [ELECTROCARDIOGRAM] Stat Comment: Mode Of Transportation: Reason For Exam: cp, sob Fingerstick Blood Sugar Results: 155 Critical Care Progress Note - Nutrition Nutrition: Nutrition Category Date Time Status Renal Diet [DIET] Diets 05/15/18 Dinner Active Assessment/Plan (1) Cellulitis of left lower extremity Assessment and plan: 72yo F. PMHx CHF, CAD, HTN, hyperlipidemia, hypothyroidism, DM type 2, CKD. p/w cellulitis that has progressed to septic shock, with streptococcal bacteremia and ATN. Neuro: sedated with precedex gtt. Pulm: acute respiratory failure from aspiration of bilious vomitus. intubated on vent, PRVC. CV: septic shock on levophed. Hem: anemia of chronic disease Renal: oliguirc ATN. 1/2NS+75meq SB@125ml/hr Endo: DM type 2, SISS for coverage GI: NPO, NGT to suction, bilious drainage. ID: septic shock with gram positive bacteremia, awaiting s/s, suspecting streptococcus. Continue Vancomycin and DVT proph - heparin sq GI proph - protonix wolf for strict I/O's during acute illness Code status - full code RIJ TLC (05/16) Critical Care Time spent 45 minutes Multi-disciplinary rounds were performed with house staff, nursing, speech therapy, respiratory therapy, pharmacy and nutrition with integrated input from the primary team/attending and other consulting services. The documented time is cumulative and includes review of patient data/exams/labs/chart review and examination of the patient on rounds and throughout the day; time is exclusive of any procedures or teaching time. Current Visit: Yes Status: Acute
[2018-05-16] MEDS ORDERED: Glucagon Recombinant 1 mg Inj IM PRN (18:32)
[2018-05-16] MEDS ORDERED: Dextrose 50% SYRINGE Inj (50 ml) IV PRN (18:32)
--- NOTE | 2018-05-16 18:53 | CARD ---
APPROVED REPORT Date of service: 05/16/2018 EXAM: Two-dimensional and M-mode echocardiogram with Doppler and color Doppler. Other Information Quality : Good[employer] : INDICATION HX OF CHF 2D DIMENSIONS IVSd1.3 (0.7-1.1cm)LVDd5.2 (3.9-5.9cm) LVOT Diameter1.7 (1.8-2.4cm)PWd1.3 (0.7-1.1cm) LVDs4.2 (2.5-4.0cm)FS (%) 18.8 % LVEF (%)38.6 (>50%) M-Mode DIMENSIONS Left Atrium (MM)5.74 (2.5-4.0cm)Aortic Root2.89 (2.2-3.7cm) Aortic Cusp Exc.1.13 (1.5-2.0cm) Mitral Valve MV E Mgfuxtzm22.7cm/sMV A Yfihrdpm15.5cm/sE/A ratio1.3 TDI Lateral E' Peak V7.71cm/sMedial E' Peak V2.87cm/sE/Lateral E'11.8 E/Medial E'31.6 Pulmonary Valve PV Peak Ohucnxpa59.8cm/sPV Peak Grad.3mmHg Tricuspid Valve TR Peak [id number]/sTR Peak [id number] LEFT VENTRICLE The left ventricle is normal size. There is borderline to mild concentric left ventricular hypertrophy. The left ventricular function is severely reduced, with diffuse hypokinesis. The left ventricular ejection fraction is about 20%. The septum is dyskinetic and demonstrates flattening, c/w elevated RV pressure. Transmitral Doppler flow pattern is Grade II-pseudonormal filling dynamics. No left ventricle thrombus noted on this study. There is no ventricular septal defect visualized. There is no left ventricular aneurysm. There is no mass noted in the left ventricle. RIGHT VENTRICLE The right ventricle is mildly dilated The right ventricular systolic function is markedly reduced. ATRIA The left atrium size is markedl dialted The right atrium size is markedly dilated The interatrial septum is intact with no evidence for an atrial septal defect. AORTIC VALVE The aortic valve is normal in structure and function. No aortic regurgitation is present. There is no aortic valvular stenosis. There is no aortic valvular vegetation. MITRAL VALVE Normal opening with milldy thickened leaflets. There is no evidence of mitral valve prolapse. There is no mitral valve stenosis. There is no mitral valve regurgitation noted. TRICUSPID VALVE The tricuspid valve is normal in structure and function. There is mild tricuspid valve regurgitation noted. There is no tricuspid valve prolapse or vegetation. There is no tricuspid valve stenosis. PULMONIC VALVE The pulmonary valve is normal in structure and function. There is no pulmonic valvular regurgitation. There is no pulmonic valvular stenosis. GREAT VESSELS The aortic root is normal in size. The ascending aorta is normal in size. The pulmonary artery is normal. Not seen PERICARDIAL EFFUSION The pericardium appears normal. There is no pleural effusion. <Conclusion> The left ventricular function is severely reduced, with diffuse hypokinesis. The left ventricular ejection fraction is about 20%. The septum is dyskinetic and demonstrates flattening, c/w elevated RV pressure. Transmitral Doppler flow pattern is Grade II-pseudonormal filling dynamics. There is borderline to mild concentric left ventricular hypertrophy. The right ventricle is mildly dilated The right ventricular systolic function is markedly reduced. The left atrium size is markedl dialted The right atrium size is markedly dilated Normal Doppler. No subcostal view. Likely severe pulmonary HTN.
--- NOTE | 2018-05-16 18:53 | CP.PCM.CON ---
History of Present Illness - History of Present Illness History of Present Illness: 72 year old with reprted hx of HTN, CHF, no details, admited with leg pain, sepsis, admitted to ICU eventualy for hypotenssion, now on vent sedated., Pancytopenia, elevated lactate, BP now 120, will follow with supportive care, TNI mildly elevated with renal failure, needs an echo, further Hx. Review of Systems - Review of Systems Systems not reviewed;Unavailable: Unstable Vital Signs - Constitutional Constitutional: Anorexia, Weakness - EENT Eyes: absent: Discharge Ears: absent: Ear Discharge Nose/Mouth/Throat: absent: Epistaxis - Breasts Breasts: absent: Nipple Discharge - Cardiovascular Cardiovascular: absent: Acrocyanosis, Chest Pain, Syncope - Respiratory Respiratory: Dyspnea. absent: Cough, Hemoptysis - Gastrointestinal Gastrointestinal: absent: Abdominal Pain, Diarrhea, Vomiting - Genitourinary Genitourinary: absent: Change in Urinary Stream - Reproductive: Female Reproductive:Female: Menopausal Past Patient History - Past Medical History & Family History Past Medical History?: Yes - Past Social History Smoking Status: Never Smoked - CARDIAC Hx Congestive Heart Failure: Yes Hx Hypertension: Yes - ENDOCRINE/METABOLIC Hx Endocrine Disorders: Yes Hx Diabetes Mellitus Type 2: Yes - MUSCULOSKELETAL/RHEUMATOLOGICAL Hx Falls: Yes - PSYCHIATRIC Hx Substance Use: No - SURGICAL HISTORY Hx Coronary Artery Bypass Graft: Yes - ANESTHESIA Hx Anesthesia: Yes Has any member of the family had a problem w/ anesthesia?: No Meds Allergies/Adverse Reactions: Allergies Allergy/AdvReac Type Severity Reaction Status Date / Time Penicillins Allergy Verified 05/15/18 11:34 - Medications Medications: Current Medications Acetaminophen (Tylenol 325mg Tab) 650 mg PO Q6 PRN PRN Reason: Fever >100.4 F or Pain Dextrose (Dextrose 50% Inj) 0 ml IV STAT PRN; Protocol PRN Reason: Hypoglycemia Protocol Dextrose (Glutose 15) 0 gm PO ONCE PRN; Protocol PRN Reason: Hypoglycemia Protocol Famotidine (Pepcid) 20 mg PO DAILY [facility] Last Admin: 05/16/18 12:16 Dose: 20 mg Glucagon (Glucagen Diagnostic Kit) 0 mg IM STAT PRN; Protocol PRN Reason: Hypoglycemia Protocol Heparin Sodium (Porcine) (Heparin) 5,000 units SC Q12H [facility] Last Admin: 05/16/18 18:21 Dose: 5,000 units Vancomycin/Sodium Chloride (Vancomycin 1 Gm/Ns 200 Ml) 1 gm in 200 mls @ 133 mls/hr IVPB Q24H [facility]; Protocol Stop: 05/21/18 10:01 Last Admin: 05/16/18 11:01 Dose: 133 mls/hr Piperacillin Sod/Tazobactam Sod (Zosyn 2.25 Gm Iv Premix) 2.25 gm in 50 mls @ 100 mls/hr IVPB Q8H [facility]; Protocol Last Admin: 05/16/18 10:53 Dose: 100 mls/hr Dexmedetomidine HCl 200 mcg/ (Sodium Chloride) 50 mls @ 3.4 mls/hr IV TITR PRN; Protocol PRN Reason: Sedation Last Titration: 05/16/18 17:14 Dose: 0.5 mcg/kg/hr, 8.5 mls/hr Norepinephrine Bitartrate 8 mg (/ Sodium Chloride) 258 mls @ 7.74 mls/hr IV .Q24H PRN; Protocol PRN Reason: TITRATE PER MD ORDER Last Titration: 05/16/18 13:30 Dose: 3 mcg/min, 5.81 mls/hr Sodium Bicarbonate 75 meq/ (Sodium Chloride) 1,075 mls @ 125 mls/hr IV .Q8H36M [facility] Last Admin: 05/16/18 18:21 Dose: 125 mls/hr Dextrose (Dextrose 5% In Water 1000 Ml) 1,000 mls @ 0 mls/hr IV .Q0M PRN; Protocol PRN Reason: Hypoglycemia Protocol Insulin Aspart (Novolog) 0 unit SC Q6 [facility]; Protocol Pantoprazole Sodium (Protonix Inj) 40 mg IVP DAILY [facility] Physical Exam - Constitutional Appears: Toxic - Head Exam Head Exam: ATRAUMATIC - Eye Exam Eye Exam: EOMI - ENT Exam ENT Exam: Mucous Membranes Moist - Neck Exam Neck exam: Negative for: Thyromegaly - Respiratory Exam Respiratory Exam: absent: Rales, Rhonchi, Wheezes - Cardiovascular Exam Cardiovascular Exam: REGULAR RHYTHM, Systolic Murmur - GI/Abdominal Exam GI & Abdominal Exam: Normal Bowel Sounds. absent: Organomegaly - Rectal Exam Rectal Exam: Deferred - Extremities Exam Extremities exam: Positive for: normal capillary refill - Neurological Exam Additional comments: Intubated and sedated - Psychiatric Exam Psychiatric exam: Anxious - Skin Skin Exam: Dry Results - Vital Signs Recent Vital Signs: Last Vital Signs Temp 98.9 F 05/16/18 12:00 Pulse 88 05/16/18 18:11 Resp 14 05/16/18 18:11 BP 122/47 L 05/16/18 18:11 Pulse Ox 98 05/16/18 18:11 - Labs Result Diagrams: 05/17/18 06:09 05/17/18 06:09 Labs: Laboratory Results - last 24 hr 05/15/18 05/15/18 05/15/18 17:49 17:49 17:49 WBC RBC Hgb Hct MCV MCH MCHC RDW Plt Count MPV Puncture Site pCO2 pO2 HCO3 ABG pH ABG Total CO2 ABG O2 Saturation ABG Base Excess ABG Hemoglobin ABG Carboxyhemoglobin POC ABG HHb (Measured) ABG Methemoglobin Nicolás Test ABG Potassium A-a O2 Difference Respiratory Index Hgb O2 Saturation Sodium Chloride Glucose Lactate Vent Mode Mechanical Rate FiO2 Tidal Volume PEEP Crit Value Called To Crit Value Called By Crit Value Read Back Blood Gas Notified Time Potassium Carbon Dioxide Anion Gap BUN Creatinine Est GFR ( Amer) Est GFR (Non-Af Amer) POC Glucose (mg/dL) Random Glucose Hemoglobin A1c Lactic Acid Calcium Phosphorus Magnesium Total Bilirubin AST ALT Alkaline Phosphatase Troponin I NT-Pro-B Natriuret Pep Total Protein Albumin Globulin Albumin/Globulin Ratio Vitamin B12 351 25-OH Vitamin D Total Folate 13.7 TSH 3rd Generation Arterial Blood Potassium Urine Color Urine Clarity Urine pH Ur Specific [place] Urine Protein Urine Glucose (UA) Urine Ketones Urine Blood Urine Nitrate Urine Bilirubin Urine Urobilinogen Ur Leukocyte Esterase Urine WBC (Auto) Urine RBC (Auto) Urine WBC Clumps (Auto) Ur Squamous Epith Cells Amorphous Sediment Urine Bacteria Hyaline Casts Hepatitis A IgM Ab Negative Hep B Core IgM Ab Negative Hepatitis C Antibody Negative HIV 1&2 Antibody Screen Negative S. pneumoniae Antigen 05/15/18 05/15/18 05/15/18 17:49 18:24 18:24 WBC RBC Hgb Hct MCV MCH MCHC RDW Plt Count MPV Puncture Site pCO2 pO2 HCO3 ABG pH ABG Total CO2 ABG O2 Saturation ABG Base Excess ABG Hemoglobin ABG Carboxyhemoglobin POC ABG HHb (Measured) ABG Methemoglobin Nicolás Test ABG Potassium A-a O2 Difference Respiratory Index Hgb O2 Saturation Sodium Chloride Glucose Lactate Vent Mode Mechanical Rate FiO2 Tidal Volume PEEP Crit Value Called To Crit Value Called By Crit Value Read Back Blood Gas Notified Time Potassium Carbon Dioxide Anion Gap BUN Creatinine Est GFR ( Amer) Est GFR (Non-Af Amer) POC Glucose (mg/dL) Random Glucose Hemoglobin A1c 6.5 Lactic Acid Calcium Phosphorus Magnesium Total Bilirubin AST ALT Alkaline Phosphatase Troponin I NT-Pro-B Natriuret Pep [id number] H Total Protein Albumin Globulin Albumin/Globulin Ratio Vitamin B12 25-OH Vitamin D Total Folate TSH 3rd Generation 14.40 H Arterial Blood Potassium Urine Color Urine Clarity Urine pH Ur Specific [place] Urine Protein Urine Glucose (UA) Urine Ketones Urine Blood Urine Nitrate Urine Bilirubin Urine Urobilinogen Ur Leukocyte Esterase Urine WBC (Auto) Urine RBC (Auto) Urine WBC Clumps (Auto) Ur Squamous Epith Cells Amorphous Sediment Urine Bacteria Hyaline Casts Hepatitis A IgM Ab Hep B Core IgM Ab Hepatitis C Antibody HIV 1&2 Antibody Screen S. pneumoniae Antigen 05/15/18 05/15/18 05/15/18 20:56 21:54 22:44 WBC RBC Hgb Hct MCV MCH MCHC RDW Plt Count MPV Puncture Site B pCO2 35 pO2 230 H HCO3 16.4 L ABG pH 7.25 L ABG Total CO2 16.4 L ABG O2 Saturation 97.0 ABG Base Excess -11.0 L ABG Hemoglobin ABG Carboxyhemoglobin POC ABG HHb (Measured) ABG Methemoglobin Nicolás Test Na ABG Potassium 3.5 L A-a O2 Difference 154.0 Respiratory Index 0.7 Hgb O2 Saturation Sodium 141.0 Chloride 111.0 H Glucose 72 Lactate 4.7 H* Vent Mode Prvc Mechanical Rate 20 FiO2 60.0 Tidal Volume 400 PEEP 5 Crit Value Called To Dr. cooney Crit Value Called By Isaiah pascual Crit Value Read Back Y Blood Gas Notified Time 2157 Potassium Carbon Dioxide Anion Gap BUN Creatinine Est GFR ( Amer) Est GFR (Non-Af Amer) POC Glucose (mg/dL) Random Glucose Hemoglobin A1c Lactic Acid 5.8 H* Calcium Phosphorus Magnesium Total Bilirubin AST ALT Alkaline Phosphatase Troponin I NT-Pro-B Natriuret Pep Total Protein Albumin Globulin Albumin/Globulin Ratio Vitamin B12 25-OH Vitamin D Total Folate TSH 3rd Generation Arterial Blood Potassium 3.5 L Urine Color [place] Urine Clarity Hazy Urine pH 7.0 Ur Specific [place] 1.013 Urine Protein 2+ H Urine Glucose (UA) Normal Urine Ketones Negative Urine Blood 1+ H Urine Nitrate Negative Urine Bilirubin Negative Urine Urobilinogen 2.0 H Ur Leukocyte Esterase Trace Urine WBC (Auto) 7 H Urine RBC (Auto) 4 H Urine WBC Clumps (Auto) Ur Squamous Epith Cells 2 Amorphous Sediment Moderate H Urine Bacteria Occ H Hyaline Casts 3-5 H Hepatitis A IgM Ab Hep B Core IgM Ab Hepatitis C Antibody HIV 1&2 Antibody Screen S. pneumoniae Antigen 05/16/18 05/16/18 05/16/18 01:33 04:02 05:45 WBC RBC Hgb Hct MCV MCH MCHC RDW Plt Count MPV Puncture Site Rb pCO2 39 pO2 102 H HCO3 19.3 L ABG pH 7.29 L ABG Total CO2 20.0 L ABG O2 Saturation 96.4 ABG Base Excess -7.2 L ABG Hemoglobin 9.1 L ABG Carboxyhemoglobin 0.3 L POC ABG HHb (Measured) 3.6 ABG Methemoglobin 0.3 Nicolás Test Na ABG Potassium A-a O2 Difference 170.0 Respiratory Index 1.7 Hgb O2 Saturation 95.7 Sodium Chloride Glucose Lactate Vent Mode Prvc Mechanical Rate 20 FiO2 45.0 Tidal Volume 400 PEEP 5 Crit Value Called To Crit Value Called By Crit Value Read Back Blood Gas Notified Time Potassium Carbon Dioxide Anion Gap BUN Creatinine Est GFR ( Amer) Est GFR (Non-Af Amer) POC Glucose (mg/dL) Random Glucose Hemoglobin A1c Lactic Acid 4.4 H* Calcium Phosphorus Magnesium Total Bilirubin AST ALT Alkaline Phosphatase Troponin I NT-Pro-B Natriuret Pep Total Protein Albumin Globulin Albumin/Globulin Ratio Vitamin B12 25-OH Vitamin D Total Folate TSH 3rd Generation Arterial Blood Potassium Urine Color [place] Urine Clarity Turbid Urine pH 7.0 Ur Specific [place] 1.017 Urine Protein 2+ H Urine Glucose (UA) Normal Urine Ketones Trace Urine Blood 3+ H Urine Nitrate Negative Urine Bilirubin Negative Urine Urobilinogen Normal Ur Leukocyte Esterase 1+ H Urine WBC (Auto) 127 H Urine RBC (Auto) 427 H Urine WBC Clumps (Auto) Many H Ur Squamous Epith Cells 53 H Amorphous Sediment Few H Urine Bacteria Many H Hyaline Casts Hepatitis A IgM Ab Hep B Core IgM Ab Hepatitis C Antibody HIV 1&2 Antibody Screen S. pneumoniae Antigen 05/16/18 05/16/18 05/16/18 06:30 06:30 06:30 WBC 1.9 L* RBC 2.69 L Hgb 9.0 L Hct 28.4 L MCV 105.7 H MCH 33.6 H MCHC 31.8 L RDW 17.9 H Plt Count 61 L MPV 10.7 Puncture Site pCO2 pO2 HCO3 ABG pH ABG Total CO2 ABG O2 Saturation ABG Base Excess ABG Hemoglobin ABG Carboxyhemoglobin POC ABG HHb (Measured) ABG Methemoglobin Nicolás Test ABG Potassium A-a O2 Difference Respiratory Index Hgb O2 Saturation Sodium 140 Chloride 112 H Glucose Lactate Vent Mode Mechanical Rate FiO2 Tidal Volume PEEP Crit Value Called To Crit Value Called By Crit Value Read Back Blood Gas Notified Time Potassium 3.8 Carbon Dioxide 18 L Anion Gap 14 BUN 62 H Creatinine 3.3 H Est GFR ( Amer) 17 Est GFR (Non-Af Amer) 14 POC Glucose (mg/dL) Random Glucose 81 D Hemoglobin A1c Lactic Acid Calcium 7.9 L Phosphorus 5.4 H Magnesium 1.8 Total Bilirubin 1.0 AST 76 H D ALT 16 Alkaline Phosphatase 31 L D Troponin I 0.5500 H* NT-Pro-B Natriuret Pep Total Protein 5.5 L Albumin 2.7 L Globulin 2.7 Albumin/Globulin Ratio 1.0 Vitamin B12 25-OH Vitamin D Total < 12.8 L Folate TSH 3rd Generation Arterial Blood Potassium Urine Color Urine Clarity Urine pH Ur Specific [place] Urine Protein Urine Glucose (UA) Urine Ketones Urine Blood Urine Nitrate Urine Bilirubin Urine Urobilinogen Ur Leukocyte Esterase Urine WBC (Auto) Urine RBC (Auto) Urine WBC Clumps (Auto) Ur Squamous Epith Cells Amorphous Sediment Urine Bacteria Hyaline Casts Hepatitis A IgM Ab Hep B Core IgM Ab Hepatitis C Antibody HIV 1&2 Antibody Screen S. pneumoniae Antigen 05/16/18 05/16/18 05/16/18 13:06 16:30 18:06 WBC RBC Hgb Hct MCV MCH MCHC RDW Plt Count MPV Puncture Site pCO2 pO2 HCO3 ABG pH ABG Total CO2 ABG O2 Saturation ABG Base Excess ABG Hemoglobin ABG Carboxyhemoglobin POC ABG HHb (Measured) ABG Methemoglobin Nicolás Test ABG Potassium A-a O2 Difference Respiratory Index Hgb O2 Saturation Sodium Chloride Glucose Lactate Vent Mode Mechanical Rate FiO2 Tidal Volume PEEP Crit Value Called To Crit Value Called By Crit Value Read Back Blood Gas Notified Time Potassium Carbon Dioxide Anion Gap BUN Creatinine Est GFR ( Amer) Est GFR (Non-Af Amer) POC Glucose (mg/dL) 78 73 Random Glucose Hemoglobin A1c Lactic Acid Calcium Phosphorus Magnesium Total Bilirubin AST ALT Alkaline Phosphatase Troponin I NT-Pro-B Natriuret Pep Total Protein Albumin Globulin Albumin/Globulin Ratio Vitamin B12 25-OH Vitamin D Total Folate TSH 3rd Generation Arterial Blood Potassium Urine Color Urine Clarity Urine pH Ur Specific [place] Urine Protein Urine Glucose (UA) Urine Ketones Urine Blood Urine Nitrate Urine Bilirubin Urine Urobilinogen Ur Leukocyte Esterase Urine WBC (Auto) Urine RBC (Auto) Urine WBC Clumps (Auto) Ur Squamous Epith Cells Amorphous Sediment Urine Bacteria Hyaline Casts Hepatitis A IgM Ab Hep B Core IgM Ab Hepatitis C Antibody HIV 1&2 Antibody Screen S. pneumoniae Antigen Negative Assessment & Plan (1) Sepsis Status: Acute Comment: severe with hypotenssion, supportive care
--- NOTE | 2018-05-16 18:59 | CP.PCM.CON ---
History of Present Illness - History of Present Illness History of Present Illness: 72 year old female with a history of CHF, HTN, HL, hypothyroid, presenting with left LE pain/swelling, sepsis, respiratory failure, with pancytopenia. The patient is currently intubated and I am unable to obtain a history from the pat ient. Review of her blood work shows leukopenia, macrocytic anemia, and thrombocytopenia. Past medical, surgical, family, social history cannot be obtained from the patient. Allergies: Penicillins Review of systems cannot be obtained. Past Patient History - Past Medical History & Family History Past Medical History?: Yes - Past Social History Smoking Status: Never Smoked - CARDIAC Hx Congestive Heart Failure: Yes Hx Hypertension: Yes - ENDOCRINE/METABOLIC Hx Endocrine Disorders: Yes Hx Diabetes Mellitus Type 2: Yes - MUSCULOSKELETAL/RHEUMATOLOGICAL Hx Falls: Yes - PSYCHIATRIC Hx Substance Use: No - SURGICAL HISTORY Hx Coronary Artery Bypass Graft: Yes - ANESTHESIA Hx Anesthesia: Yes Has any member of the family had a problem w/ anesthesia?: No Meds Allergies/Adverse Reactions: Allergies Allergy/AdvReac Type Severity Reaction Status Date / Time Penicillins Allergy Verified 05/15/18 11:34 - Medications Medications: Current Medications Acetaminophen (Tylenol 325mg Tab) 650 mg PO Q6 PRN PRN Reason: Fever >100.4 F or Pain Dextrose (Dextrose 50% Inj) 0 ml IV STAT PRN; Protocol PRN Reason: Hypoglycemia Protocol Dextrose (Glutose 15) 0 gm PO ONCE PRN; Protocol PRN Reason: Hypoglycemia Protocol Famotidine (Pepcid) 20 mg PO DAILY [facility] Last Admin: 05/16/18 12:16 Dose: 20 mg Glucagon (Glucagen Diagnostic Kit) 0 mg IM STAT PRN; Protocol PRN Reason: Hypoglycemia Protocol Heparin Sodium (Porcine) (Heparin) 5,000 units SC Q12H [facility] Last Admin: 05/16/18 18:21 Dose: 5,000 units Vancomycin/Sodium Chloride (Vancomycin 1 Gm/Ns 200 Ml) 1 gm in 200 mls @ 133 mls/hr IVPB Q24H [facility]; Protocol Stop: 05/21/18 10:01 Last Admin: 05/16/18 11:01 Dose: 133 mls/hr Piperacillin Sod/Tazobactam Sod (Zosyn 2.25 Gm Iv Premix) 2.25 gm in 50 mls @ 100 mls/hr IVPB Q8H [facility]; Protocol Last Admin: 05/16/18 10:53 Dose: 100 mls/hr Dexmedetomidine HCl 200 mcg/ (Sodium Chloride) 50 mls @ 3.4 mls/hr IV TITR PRN; Protocol PRN Reason: Sedation Last Titration: 05/16/18 17:14 Dose: 0.5 mcg/kg/hr, 8.5 mls/hr Norepinephrine Bitartrate 8 mg (/ Sodium Chloride) 258 mls @ 7.74 mls/hr IV .Q24H PRN; Protocol PRN Reason: TITRATE PER MD ORDER Last Titration: 05/16/18 13:30 Dose: 3 mcg/min, 5.81 mls/hr Sodium Bicarbonate 75 meq/ (Sodium Chloride) 1,075 mls @ 125 mls/hr IV .Q8H36M [facility] Last Admin: 05/16/18 18:21 Dose: 125 mls/hr Dextrose (Dextrose 5% In Water 1000 Ml) 1,000 mls @ 0 mls/hr IV .Q0M PRN; Protocol PRN Reason: Hypoglycemia Protocol Insulin Aspart (Novolog) 0 unit SC Q6 [facility]; Protocol Pantoprazole Sodium (Protonix Inj) 40 mg IVP DAILY [facility] Physical Exam - Head Exam Head Exam: ATRAUMATIC - Eye Exam Eye Exam: Normal appearance - ENT Exam ENT Exam: Mucous Membranes Dry - Respiratory Exam Respiratory Exam: Decreased Breath Sounds - Cardiovascular Exam Cardiovascular Exam: +S1, +S2 - GI/Abdominal Exam GI & Abdominal Exam: Normal Bowel Sounds - Extremities Exam Extremities exam: Positive for: pedal edema - Psychiatric Exam Psychiatric exam: Flat Affect - Skin Skin Exam: Warm Results - Vital Signs Recent Vital Signs: Last Vital Signs Temp 98.9 F 05/16/18 12:00 Pulse 88 05/16/18 18:11 Resp 14 05/16/18 18:11 BP 122/47 L 05/16/18 18:11 Pulse Ox 98 05/16/18 18:11 - Labs Result Diagrams: 05/16/18 06:30 05/16/18 06:30 Labs: Laboratory Results - last 24 hr 05/15/18 05/15/18 05/15/18 17:49 17:49 17:49 WBC RBC Hgb Hct MCV MCH MCHC RDW Plt Count MPV Puncture Site pCO2 pO2 HCO3 ABG pH ABG Total CO2 ABG O2 Saturation ABG Base Excess ABG Hemoglobin ABG Carboxyhemoglobin POC ABG HHb (Measured) ABG Methemoglobin Nicolás Test ABG Potassium A-a O2 Difference Respiratory Index Hgb O2 Saturation Sodium Chloride Glucose Lactate Vent Mode Mechanical Rate FiO2 Tidal Volume PEEP Crit Value Called To Crit Value Called By Crit Value Read Back Blood Gas Notified Time Potassium Carbon Dioxide Anion Gap BUN Creatinine Est GFR ( Amer) Est GFR (Non-Af Amer) POC Glucose (mg/dL) Random Glucose Lactic Acid Calcium Phosphorus Magnesium Total Bilirubin AST ALT Alkaline Phosphatase Troponin I NT-Pro-B Natriuret Pep Total Protein Albumin Globulin Albumin/Globulin Ratio Vitamin B12 351 25-OH Vitamin D Total Folate 13.7 Arterial Blood Potassium Urine Color Urine Clarity Urine pH Ur Specific [place] Urine Protein Urine Glucose (UA) Urine Ketones Urine Blood Urine Nitrate Urine Bilirubin Urine Urobilinogen Ur Leukocyte Esterase Urine WBC (Auto) Urine RBC (Auto) Urine WBC Clumps (Auto) Ur Squamous Epith Cells Amorphous Sediment Urine Bacteria Hyaline Casts Hepatitis C Antibody Negative HIV 1&2 Antibody Screen Negative S. pneumoniae Antigen 05/15/18 05/15/18 05/15/18 18:24 20:56 21:54 WBC RBC Hgb Hct MCV MCH MCHC RDW Plt Count MPV Puncture Site B pCO2 35 pO2 230 H HCO3 16.4 L ABG pH 7.25 L ABG Total CO2 16.4 L ABG O2 Saturation 97.0 ABG Base Excess -11.0 L ABG Hemoglobin ABG Carboxyhemoglobin POC ABG HHb (Measured) ABG Methemoglobin Nicolás Test Na ABG Potassium 3.5 L A-a O2 Difference 154.0 Respiratory Index 0.7 Hgb O2 Saturation Sodium 141.0 Chloride 111.0 H Glucose 72 Lactate 4.7 H* Vent Mode Prvc Mechanical Rate 20 FiO2 60.0 Tidal Volume 400 PEEP 5 Crit Value Called To Dr. cooney Crit Value Called By Isaiah pascual Crit Value Read Back Y Blood Gas Notified Time 2156 Potassium Carbon Dioxide Anion Gap BUN Creatinine Est GFR ( Amer) Est GFR (Non-Af Amer) POC Glucose (mg/dL) Random Glucose Lactic Acid 5.8 H* Calcium Phosphorus Magnesium Total Bilirubin AST ALT Alkaline Phosphatase Troponin I NT-Pro-B Natriuret Pep 124679 H Total Protein Albumin Globulin Albumin/Globulin Ratio Vitamin B12 25-OH Vitamin D Total Folate Arterial Blood Potassium 3.5 L Urine Color Urine Clarity Urine pH Ur Specific [place] Urine Protein Urine Glucose (UA) Urine Ketones Urine Blood Urine Nitrate Urine Bilirubin Urine Urobilinogen Ur Leukocyte Esterase Urine WBC (Auto) Urine RBC (Auto) Urine WBC Clumps (Auto) Ur Squamous Epith Cells Amorphous Sediment Urine Bacteria Hyaline Casts Hepatitis C Antibody HIV 1&2 Antibody Screen S. pneumoniae Antigen 05/15/18 05/16/18 05/16/18 22:44 01:33 04:02 WBC RBC Hgb Hct MCV MCH MCHC RDW Plt Count MPV Puncture Site pCO2 pO2 HCO3 ABG pH ABG Total CO2 ABG O2 Saturation ABG Base Excess ABG Hemoglobin ABG Carboxyhemoglobin POC ABG HHb (Measured) ABG Methemoglobin Nicolás Test ABG Potassium A-a O2 Difference Respiratory Index Hgb O2 Saturation Sodium Chloride Glucose Lactate Vent Mode Mechanical Rate FiO2 Tidal Volume PEEP Crit Value Called To Crit Value Called By Crit Value Read Back Blood Gas Notified Time Potassium Carbon Dioxide Anion Gap BUN Creatinine Est GFR ( Amer) Est GFR (Non-Af Amer) POC Glucose (mg/dL) Random Glucose Lactic Acid 4.4 H* Calcium Phosphorus Magnesium Total Bilirubin AST ALT Alkaline Phosphatase Troponin I NT-Pro-B Natriuret Pep Total Protein Albumin Globulin Albumin/Globulin Ratio Vitamin B12 25-OH Vitamin D Total Folate Arterial Blood Potassium Urine Color Coleen Coleen Urine Clarity Hazy Turbid Urine pH 7.0 7.0 Ur Specific [place] 1.013 1.017 Urine Protein 2+ H 2+ H Urine Glucose (UA) Normal Normal Urine Ketones Negative Trace Urine Blood 1+ H 3+ H Urine Nitrate Negative Negative Urine Bilirubin Negative Negative Urine Urobilinogen 2.0 H Normal Ur Leukocyte Esterase Trace 1+ H Urine WBC (Auto) 7 H 127 H Urine RBC (Auto) 4 H 427 H Urine WBC Clumps (Auto) Many H Ur Squamous Epith Cells 2 53 H Amorphous Sediment Moderate H Few H Urine Bacteria Occ H Many H Hyaline Casts 3-5 H Hepatitis C Antibody HIV 1&2 Antibody Screen S. pneumoniae Antigen 05/16/18 05/16/18 05/16/18 05:45 06:30 06:30 WBC 1.9 L* RBC 2.69 L Hgb 9.0 L Hct 28.4 L MCV 105.7 H MCH 33.6 H MCHC 31.8 L RDW 17.9 H Plt Count 61 L MPV 10.7 Puncture Site Rb pCO2 39 pO2 102 H HCO3 19.3 L ABG pH 7.29 L ABG Total CO2 20.0 L ABG O2 Saturation 96.4 ABG Base Excess -7.2 L ABG Hemoglobin 9.1 L ABG Carboxyhemoglobin 0.3 L POC ABG HHb (Measured) 3.6 ABG Methemoglobin 0.3 Nicolás Test Na ABG Potassium A-a O2 Difference 170.0 Respiratory Index 1.7 Hgb O2 Saturation 95.7 Sodium 140 Chloride 112 H Glucose Lactate Vent Mode Prvc Mechanical Rate 20 FiO2 45.0 Tidal Volume 400 PEEP 5 Crit Value Called To Crit Value Called By Crit Value Read Back Blood Gas Notified Time Potassium 3.8 Carbon Dioxide 18 L Anion Gap 14 BUN 62 H Creatinine 3.3 H Est GFR ( Amer) 17 Est GFR (Non-Af Amer) 14 POC Glucose (mg/dL) Random Glucose 81 D Lactic Acid Calcium 7.9 L Phosphorus 5.4 H Magnesium 1.8 Total Bilirubin 1.0 AST 76 H D ALT 16 Alkaline Phosphatase 31 L D Troponin I 0.5500 H* NT-Pro-B Natriuret Pep Total Protein 5.5 L Albumin 2.7 L Globulin 2.7 Albumin/Globulin Ratio 1.0 Vitamin B12 25-OH Vitamin D Total Folate Arterial Blood Potassium Urine Color Urine Clarity Urine pH Ur Specific [place] Urine Protein Urine Glucose (UA) Urine Ketones Urine Blood Urine Nitrate Urine Bilirubin Urine Urobilinogen Ur Leukocyte Esterase Urine WBC (Auto) Urine RBC (Auto) Urine WBC Clumps (Auto) Ur Squamous Epith Cells Amorphous Sediment Urine Bacteria Hyaline Casts Hepatitis C Antibody HIV 1&2 Antibody Screen S. pneumoniae Antigen 05/16/18 05/16/18 05/16/18 06:30 13:06 16:30 WBC RBC Hgb Hct MCV MCH MCHC RDW Plt Count MPV Puncture Site pCO2 pO2 HCO3 ABG pH ABG Total CO2 ABG O2 Saturation ABG Base Excess ABG Hemoglobin ABG Carboxyhemoglobin POC ABG HHb (Measured) ABG Methemoglobin Nicolás Test ABG Potassium A-a O2 Difference Respiratory Index Hgb O2 Saturation Sodium Chloride Glucose Lactate Vent Mode Mechanical Rate FiO2 Tidal Volume PEEP Crit Value Called To Crit Value Called By Crit Value Read Back Blood Gas Notified Time Potassium Carbon Dioxide Anion Gap BUN Creatinine Est GFR ( Amer) Est GFR (Non-Af Amer) POC Glucose (mg/dL) 78 Random Glucose Lactic Acid Calcium Phosphorus Magnesium Total Bilirubin AST ALT Alkaline Phosphatase Troponin I NT-Pro-B Natriuret Pep Total Protein Albumin Globulin Albumin/Globulin Ratio Vitamin B12 25-OH Vitamin D Total < 12.8 L Folate Arterial Blood Potassium Urine Color Urine Clarity Urine pH Ur Specific [place] Urine Protein Urine Glucose (UA) Urine Ketones Urine Blood Urine Nitrate Urine Bilirubin Urine Urobilinogen Ur Leukocyte Esterase Urine WBC (Auto) Urine RBC (Auto) Urine WBC Clumps (Auto) Ur Squamous Epith Cells Amorphous Sediment Urine Bacteria Hyaline Casts Hepatitis C Antibody HIV 1&2 Antibody Screen S. pneumoniae Antigen Negative 05/16/18 18:06 WBC RBC Hgb Hct MCV MCH MCHC RDW Plt Count MPV Puncture Site pCO2 pO2 HCO3 ABG pH ABG Total CO2 ABG O2 Saturation ABG Base Excess ABG Hemoglobin ABG Carboxyhemoglobin POC ABG HHb (Measured) ABG Methemoglobin Nicolás Test ABG Potassium A-a O2 Difference Respiratory Index Hgb O2 Saturation Sodium Chloride Glucose Lactate Vent Mode Mechanical Rate FiO2 Tidal Volume PEEP Crit Value Called To Crit Value Called By Crit Value Read Back Blood Gas Notified Time Potassium Carbon Dioxide Anion Gap BUN Creatinine Est GFR ( Amer) Est GFR (Non-Af Amer) POC Glucose (mg/dL) 73 Random Glucose Lactic Acid Calcium Phosphorus Magnesium Total Bilirubin AST ALT Alkaline Phosphatase Troponin I NT-Pro-B Natriuret Pep Total Protein Albumin Globulin Albumin/Globulin Ratio Vitamin B12 25-OH Vitamin D Total Folate Arterial Blood Potassium Urine Color Urine Clarity Urine pH Ur Specific [place] Urine Protein Urine Glucose (UA) Urine Ketones Urine Blood Urine Nitrate Urine Bilirubin Urine Urobilinogen Ur Leukocyte Esterase Urine WBC (Auto) Urine RBC (Auto) Urine WBC Clumps (Auto) Ur Squamous Epith Cells Amorphous Sediment Urine Bacteria Hyaline Casts Hepatitis C Antibody HIV 1&2 Antibody Screen S. pneumoniae Antigen Assessment & Plan (1) Pancytopenia Assessment and Plan: borderline iron and B12; check retic count anemia of CKD rule out DIC; check fibrinogen ?elevated MCV related to B12 ?hypothyroid ? MDS no current neutropenia, no current transfusion indication check hepatitis and HIV Status: Acute (2) Coagulopathy Assessment and Plan: ? DIC ? nutritional check fibrinogen Thank you for this interesting consult. Status: Acute
[2018-05-16] MEDS ORDERED: Moxifloxacin IV 400mg/250ml NS 400 MG/250 ML BAG IVPB ONE (20:30)
--- NOTE | 2018-05-16 22:31 | CP.PCM.CON ---
History of Present Illness - History of Present Illness History of Present Illness: renal note reason for consult arron HPI: 72-year-old female with a history of CHF, CAD, hypertension, hyperlipidemia, history of thyroid disease and renal disease, patient admitted to the hospital with a complaining of left lower extremity pain swelling of one day duration along with fever, followed by code sepsis, hypotension leading to resp distress and current intubation. Hx is obtained from charts. currrently intubated on pressors unknown baseline kidney disease, cr is now 3.1 UOP 10-15 cc per hour. on iv fluids and pressors Past medical history: Had a history of congestive heart failure, coronary artery disease, diabetes, hypertension, hypothyroidism, renal insufficiency. Patient has allergic to penicillin Surgical history include coronary artery bypass grafting x2 Social history: No smoking or drinking history noted Family history significant for diabetes and heart disease Medications at this time not available. Review of system: unable to obtain On examination: Patient is currently sedated. On ventilator. Hypotension noted. No jugular venous distention noted. Chest bilateral good air entry vent dep Heart sounds are regular Abdomen soft nontender. edema + ao times 0 Left lower extremity erythema, tenderness, and swelling noted ARRON/shock/acute resp failure arron sec to sepsis hypotension, borderline uop monitor UOP check ua. urine lytes can cut back on iv fluids lytes reviewed abx per icu team d/w icu attending Past Patient History - Past Medical History & Family History Past Medical History?: Yes - Past Social History Smoking Status: Never Smoked - CARDIAC Hx Congestive Heart Failure: Yes Hx Hypertension: Yes - ENDOCRINE/METABOLIC Hx Endocrine Disorders: Yes Hx Diabetes Mellitus Type 2: Yes - MUSCULOSKELETAL/RHEUMATOLOGICAL Hx Falls: Yes - PSYCHIATRIC Hx Substance Use: No - SURGICAL HISTORY Hx Coronary Artery Bypass Graft: Yes - ANESTHESIA Hx Anesthesia: Yes Has any member of the family had a problem w/ anesthesia?: No Meds Allergies/Adverse Reactions: Allergies Allergy/AdvReac Type Severity Reaction Status Date / Time Penicillins Allergy Verified 05/15/18 11:34 - Medications Medications: Current Medications Acetaminophen (Tylenol 325mg Tab) 650 mg PO Q6 PRN PRN Reason: Fever >100.4 F or Pain Dextrose (Dextrose 50% Inj) 0 ml IV STAT PRN; Protocol PRN Reason: Hypoglycemia Protocol Dextrose (Glutose 15) 0 gm PO ONCE PRN; Protocol PRN Reason: Hypoglycemia Protocol Famotidine (Pepcid) 20 mg PO DAILY [facility] Last Admin: 05/16/18 12:16 Dose: 20 mg Glucagon (Glucagen Diagnostic Kit) 0 mg IM STAT PRN; Protocol PRN Reason: Hypoglycemia Protocol Heparin Sodium (Porcine) (Heparin) 5,000 units SC Q12H [facility] Last Admin: 05/16/18 18:21 Dose: 5,000 units Hydrocortisone Sodium Succinate (Solu-Cortef) 100 mg IV Q8H [facility] Vancomycin/Sodium Chloride (Vancomycin 1 Gm/Ns 200 Ml) 1 gm in 200 mls @ 133 mls/hr IVPB Q24H [facility]; Protocol Stop: 05/21/18 10:01 Last Admin: 05/16/18 11:01 Dose: 133 mls/hr Piperacillin Sod/Tazobactam Sod (Zosyn 2.25 Gm Iv Premix) 2.25 gm in 50 mls @ 100 mls/hr IVPB Q8H [facility]; Protocol Last Admin: 05/16/18 19:00 Dose: 100 mls/hr Dexmedetomidine HCl 200 mcg/ (Sodium Chloride) 50 mls @ 3.4 mls/hr IV TITR PRN; Protocol PRN Reason: Sedation Last Titration: 05/16/18 17:14 Dose: 0.5 mcg/kg/hr, 8.5 mls/hr Norepinephrine Bitartrate 8 mg (/ Sodium Chloride) 258 mls @ 7.74 mls/hr IV .Q24H PRN; Protocol PRN Reason: TITRATE PER MD ORDER Last Titration: 05/16/18 13:30 Dose: 3 mcg/min, 5.81 mls/hr Sodium Bicarbonate 75 meq/ (Sodium Chloride) 1,075 mls @ 125 mls/hr IV .Q8H36M [facility] Last Admin: 05/16/18 18:21 Dose: 125 mls/hr Dextrose (Dextrose 5% In Water 1000 Ml) 1,000 mls @ 0 mls/hr IV .Q0M PRN; Protocol PRN Reason: Hypoglycemia Protocol Insulin Aspart (Novolog) 0 unit SC Q6 [facility]; Protocol Pantoprazole Sodium (Protonix Inj) 40 mg IVP DAILY [facility] Results - Vital Signs Recent Vital Signs: Last Vital Signs Temp 98.9 F 05/16/18 12:00 Pulse 84 05/16/18 22:00 Resp 14 05/16/18 22:00 BP 93/41 L 05/16/18 21:41 Pulse Ox 99 05/16/18 22:00 - Labs Result Diagrams: 05/16/18 06:30 05/16/18 06:30 Labs: Laboratory Results - last 24 hr 05/15/18 05/16/18 05/16/18 22:44 01:33 04:02 WBC RBC Hgb Hct MCV MCH MCHC RDW Plt Count MPV Puncture Site pCO2 pO2 HCO3 ABG pH ABG Total CO2 ABG O2 Saturation ABG Base Excess ABG Hemoglobin ABG Carboxyhemoglobin POC ABG HHb (Measured) ABG Methemoglobin Nicolás Test A-a O2 Difference Respiratory Index Hgb O2 Saturation Vent Mode Mechanical Rate FiO2 Tidal Volume PEEP Sodium Potassium Chloride Carbon Dioxide Anion Gap BUN Creatinine Est GFR ( Amer) Est GFR (Non-Af Amer) POC Glucose (mg/dL) Random Glucose Lactic Acid 4.4 H* Calcium Phosphorus Magnesium Total Bilirubin AST ALT Alkaline Phosphatase Troponin I Total Protein Albumin Globulin Albumin/Globulin Ratio 25-OH Vitamin D Total Urine Color Coleen Coleen Urine Clarity Hazy Turbid Urine pH 7.0 7.0 Ur Specific [place] 1.013 1.017 Urine Protein 2+ H 2+ H Urine Glucose (UA) Normal Normal Urine Ketones Negative Trace Urine Blood 1+ H 3+ H Urine Nitrate Negative Negative Urine Bilirubin Negative Negative Urine Urobilinogen 2.0 H Normal Ur Leukocyte Esterase Trace 1+ H Urine WBC (Auto) 7 H 127 H Urine RBC (Auto) 4 H 427 H Urine WBC Clumps (Auto) Many H Ur Squamous Epith Cells 2 53 H Amorphous Sediment Moderate H Few H Urine Bacteria Occ H Many H Hyaline Casts 3-5 H S. pneumoniae Antigen 05/16/18 05/16/18 05/16/18 05:45 06:30 06:30 WBC 1.9 L* RBC 2.69 L Hgb 9.0 L Hct 28.4 L MCV 105.7 H MCH 33.6 H MCHC 31.8 L RDW 17.9 H Plt Count 61 L MPV 10.7 Puncture Site Rb pCO2 39 pO2 102 H HCO3 19.3 L ABG pH 7.29 L ABG Total CO2 20.0 L ABG O2 Saturation 96.4 ABG Base Excess -7.2 L ABG Hemoglobin 9.1 L ABG Carboxyhemoglobin 0.3 L POC ABG HHb (Measured) 3.6 ABG Methemoglobin 0.3 Nicolás Test Na A-a O2 Difference 170.0 Respiratory Index 1.7 Hgb O2 Saturation 95.7 Vent Mode Prvc Mechanical Rate 20 FiO2 45.0 Tidal Volume 400 PEEP 5 Sodium 140 Potassium 3.8 Chloride 112 H Carbon Dioxide 18 L Anion Gap 14 BUN 62 H Creatinine 3.3 H Est GFR ( Amer) 17 Est GFR (Non-Af Amer) 14 POC Glucose (mg/dL) Random Glucose 81 D Lactic Acid Calcium 7.9 L Phosphorus 5.4 H Magnesium 1.8 Total Bilirubin 1.0 AST 76 H D ALT 16 Alkaline Phosphatase 31 L D Troponin I 0.5500 H* Total Protein 5.5 L Albumin 2.7 L Globulin 2.7 Albumin/Globulin Ratio 1.0 25-OH Vitamin D Total Urine Color Urine Clarity Urine pH Ur Specific [place] Urine Protein Urine Glucose (UA) Urine Ketones Urine Blood Urine Nitrate Urine Bilirubin Urine Urobilinogen Ur Leukocyte Esterase Urine WBC (Auto) Urine RBC (Auto) Urine WBC Clumps (Auto) Ur Squamous Epith Cells Amorphous Sediment Urine Bacteria Hyaline Casts S. pneumoniae Antigen 05/16/18 05/16/18 05/16/18 06:30 13:06 16:30 WBC RBC Hgb Hct MCV MCH MCHC RDW Plt Count MPV Puncture Site pCO2 pO2 HCO3 ABG pH ABG Total CO2 ABG O2 Saturation ABG Base Excess ABG Hemoglobin ABG Carboxyhemoglobin POC ABG HHb (Measured) ABG Methemoglobin Nicolás Test A-a O2 Difference Respiratory Index Hgb O2 Saturation Vent Mode Mechanical Rate FiO2 Tidal Volume PEEP Sodium Potassium Chloride Carbon Dioxide Anion Gap BUN Creatinine Est GFR ( Amer) Est GFR (Non-Af Amer) POC Glucose (mg/dL) 78 Random Glucose Lactic Acid Calcium Phosphorus Magnesium Total Bilirubin AST ALT Alkaline Phosphatase Troponin I Total Protein Albumin Globulin Albumin/Globulin Ratio 25-OH Vitamin D Total < 12.8 L Urine Color Urine Clarity Urine pH Ur Specific [place] Urine Protein Urine Glucose (UA) Urine Ketones Urine Blood Urine Nitrate Urine Bilirubin Urine Urobilinogen Ur Leukocyte Esterase Urine WBC (Auto) Urine RBC (Auto) Urine WBC Clumps (Auto) Ur Squamous Epith Cells Amorphous Sediment Urine Bacteria Hyaline Casts S. pneumoniae Antigen Negative 05/16/18 18:06 WBC RBC Hgb Hct MCV MCH MCHC RDW Plt Count MPV Puncture Site pCO2 pO2 HCO3 ABG pH ABG Total CO2 ABG O2 Saturation ABG Base Excess ABG Hemoglobin ABG Carboxyhemoglobin POC ABG HHb (Measured) ABG Methemoglobin Nicolás Test A-a O2 Difference Respiratory Index Hgb O2 Saturation Vent Mode Mechanical Rate FiO2 Tidal Volume PEEP Sodium Potassium Chloride Carbon Dioxide Anion Gap BUN Creatinine Est GFR ( Amer) Est GFR (Non-Af Amer) POC Glucose (mg/dL) 73 Random Glucose Lactic Acid Calcium Phosphorus Magnesium Total Bilirubin AST ALT Alkaline Phosphatase Troponin I Total Protein Albumin Globulin Albumin/Globulin Ratio 25-OH Vitamin D Total Urine Color Urine Clarity Urine pH Ur Specific [place] Urine Protein Urine Glucose (UA) Urine Ketones Urine Blood Urine Nitrate Urine Bilirubin Urine Urobilinogen Ur Leukocyte Esterase Urine WBC (Auto) Urine RBC (Auto) Urine WBC Clumps (Auto) Ur Squamous Epith Cells Amorphous Sediment Urine Bacteria Hyaline Casts S. pneumoniae Antigen
[2018-05-17] MEDS: (Novolog) Insulin Aspart, Recombinant 100 u/ml 10 ml vial SC SCH ×5 (00:30→23:58)
[2018-05-17] MEDS ORDERED: Dextrose 50% SYRINGE Inj (50 ml) IV STA (00:41)
[2018-05-17] MEDS ORDERED: Sodium Bicarbonate 8.4% 150 MEQ in Dextrose 5% In Water 1,000 ML IVP SCH (00:45)
[2018-05-17] MEDS: Dexmedetomidine Hydrochloride 200 MCG in Sodium Chloride 0.9% 48 ML IV PRN ×7 (01:00→21:24)
[2018-05-17] MEDS ORDERED: Sodium Bicarbonate 8.4% 150 MEQ in Dextrose 5% In Water 1,000 ML IV SCH (02:00)
[2018-05-17] MEDS: Piperacill/Tazo 2.25gm in Dex 2.25 GM/50 ML BAG IVPB SCH ×2 (02:23→11:15)
[2018-05-17 05:57] LABS: ABG ALLEN TEST POS; ARTERIAL BLOOD GAS HCO3 20.3 mmol/L (21-28); ARTERIAL BLOOD GAS O2 SAT 95.8 % (95-98); ARTERIAL BLOOD GAS PCO2 41 mm/Hg (35-45); ARTERIAL BLOOD GAS PO2 83 mm/Hg (80-100); ARTERIAL BLOOD GAS TCO2 21.5 mmol/L (22-28)
[2018-05-17 06:32] LABS: INR 1.8; PROTHROMBIN TIME 19.8 SECONDS (9.7-12.2)
[2018-05-17 06:36] LABS: VANCOMYCIN RANDOM 20.9 ug/mL
[2018-05-17 06:37] LABS: ALB/GLOB RATIO 0.9 (1.0-2.1); ALBUMIN 2.3 g/dL (3.5-5.0); CALCIUM 7.5 mg/dl (8.6-10.4)
[2018-05-17] MEDS: Vancomycin 1 gm/NS 200 ml 1 GM/200 ML BAG IVPB SCH (10:43)
--- NOTE | 2018-05-17 10:46 | RAD ---
Date of service: 05/17/2018 HISTORY: eval et tube COMPARISON: Comparison is made with 05/16/2018 TECHNIQUE: 1 view obtained. FINDINGS: LUNGS: [id number] pulmonary vascular congestion is noted slightly improved compared to the previous exam. The ET tube is seen in place. PLEURA: No significant pleural effusion identified, no pneumothorax apparent. CARDIOVASCULAR: Atherosclerotic calcification again noted. The cardiac silhouette is enlarged. Pulmonary vascular congestion is again noted. Post sternotomy changes are also again noted. OSSEOUS STRUCTURES: No interval changes P VISUALIZED UPPER ABDOMEN: NG tube seen extending to the abdomen. OTHER FINDINGS: None. IMPRESSION: Interval slight improvement in the pulmonary vascular congestion. Otherwise no significant interval changes.
--- NOTE | 2018-05-17 11:33 | CP.PCM.PN ---
Subjective - Date & Time of Evaluation Date of Evaluation: 05/17/18 Time of Evaluation: 13:00 - Subjective Subjective: on IV fluid and pressors BP 120gfr 25 seen by renal, DANIEL 1.2 now observe will be started on hemodialysis today with a potassium bath of 3 Objective - Vital Signs/Intake and Output Vital Signs (last 24 hours): Temp Pulse Resp BP Pulse Ox 99.1 F 76 18 123/47 L 100 05/17/18 00:00 05/17/18 10:22 05/17/18 10:22 05/17/18 10:22 05/17/18 10:22 Intake and Output: 05/17/18 05/17/18 06:59 18:59 Intake Total 1959.8 242.8 Output Total 58 180 Balance 1901.8 62.8 - Medications Medications: Current Medications Acetaminophen (Tylenol 325mg Tab) 650 mg PO Q6 PRN PRN Reason: Fever >100.4 F or Pain Dextrose (Dextrose 50% Inj) 0 ml IV STAT PRN; Protocol PRN Reason: Hypoglycemia Protocol Dextrose (Glutose 15) 0 gm PO ONCE PRN; Protocol PRN Reason: Hypoglycemia Protocol Famotidine (Pepcid) 20 mg PO DAILY [facility] Last Admin: 05/17/18 11:21 Dose: Not Given Glucagon (Glucagen Diagnostic Kit) 0 mg IM STAT PRN; Protocol PRN Reason: Hypoglycemia Protocol Heparin Sodium (Porcine) (Heparin) 5,000 units SC Q12H [facility] Last Admin: 05/17/18 05:08 Dose: 5,000 units Hydrocortisone Sodium Succinate (Solu-Cortef) 100 mg IV Q8H [facility] Last Admin: 05/17/18 04:30 Dose: 100 mg Vancomycin/Sodium Chloride (Vancomycin 1 Gm/Ns 200 Ml) 1 gm in 200 mls @ 133 mls/hr IVPB Q24H [facility]; Protocol Stop: 05/21/18 10:01 Last Admin: 05/17/18 10:43 Dose: 133 mls/hr Piperacillin Sod/Tazobactam Sod (Zosyn 2.25 Gm Iv Premix) 2.25 gm in 50 mls @ 100 mls/hr IVPB Q8H [facility]; Protocol Last Admin: 05/17/18 11:15 Dose: 100 mls/hr Dexmedetomidine HCl 200 mcg/ (Sodium Chloride) 50 mls @ 3.4 mls/hr IV TITR PRN; Protocol PRN Reason: Sedation Last Admin: 05/17/18 08:13 Dose: 0.99 mcg/kg/hr, 17 mls/hr Norepinephrine Bitartrate 8 mg (/ Sodium Chloride) 258 mls @ 7.74 mls/hr IV .Q24H PRN; Protocol PRN Reason: TITRATE PER MD ORDER Last Titration: 05/17/18 08:36 Dose: 2 mcg/min, 3.87 mls/hr Dextrose (Dextrose 5% In Water 1000 Ml) 1,000 mls @ 0 mls/hr IV .Q0M PRN; Protocol PRN Reason: Hypoglycemia Protocol Insulin Aspart (Novolog) 0 unit SC Q6 [facility]; Protocol Last Admin: 05/17/18 06:00 Dose: Not Given Pantoprazole Sodium (Protonix Inj) 40 mg IVP DAILY [facility] Last Admin: 05/17/18 11:20 Dose: 40 mg - Labs Labs: 05/16/18 06:30 05/17/18 06:09 PT 19.8 SECONDS (9.7-12.2) H 05/17/18 06:09 INR 1.8 05/17/18 06:09 APTT 40 SECONDS (21-34) H D 05/17/18 06:09 - Constitutional Appears: Toxic - Head Exam Head Exam: ATRAUMATIC - ENT Exam ENT Exam: Mucous Membranes Moist - Neck Exam Neck Exam: absent: Thyromegaly - Respiratory Exam Respiratory Exam: absent: Rales, Rhonchi, Wheezes - Cardiovascular Exam Cardiovascular Exam: REGULAR RHYTHM, Murmur - GI/Abdominal Exam GI & Abdominal Exam: Soft, Normal Bowel Sounds. absent: Organomegaly - Rectal Exam Rectal Exam: Deferred - Extremities Exam Extremities Exam: Normal Capillary Refill - Back Exam Additional comments: Intubated and sedated - Skin Skin Exam: Dry Assessment and Plan (1) Sepsis Status: Acute (2) Multi-organ system dysfunction Status: Acute (3) Respiratory failure requiring intubation Status: Acute
[2018-05-17 12:47] LABS: BASO % 0.2 % (0.0-2.0); EOS % 0.2 % (0.0-4.0); HEMOGLOBIN 8.8 g/dL (11.0-16.0); LYMPH # 0.2 K/uL (1.0-4.3); LYMPH % 2.1 % (20.0-40.0); MEAN CORPUSCULAR HEMOGLOBIN 34.4 pg (27.0-31.0); MEAN CORPUSCULAR HGB CONC 32.4 g/dL (33.0-37.0); MEAN PLATELET VOLUME 12.1 fL (7.2-11.7); MONO # 0.4 K/uL (0.0-0.8); MONO % 3.7 % (0.0-10.0); NEUT # 9.5 K/uL (1.8-7.0); NEUT % 93.8 % (50.0-75.0); NRBC % 0.1 % (0.0-2.0); PLATELET COUNT 62 K/uL (130-400); RBC 2.55 Mil/uL (3.80-5.20); RED CELL DISTRIBUTION WIDTH 17.7 % (11.5-14.5)
[2018-05-17 13:01] LABS: WHITE BLOOD COUNT 10.1 K/uL (4.8-10.8)
[2018-05-17 13:46] LABS: EOSINOPHIL 9 % (0-4); LYMPHOCYTE 4 % (20-40); METAMYELOCYTE 3 % (0-0); MONOCYTE 3 % (0-10); MYELOCYTE 1 % (0-0); TOTAL CELLS COUNTED 100
[2018-05-17 13:48] LABS: ANISOCYTOSIS SLIGHT; BANDS 30 % (0-2); NEUTROPHIL 50 % (50-75); PLATELET ESTIMATE DECREASED (NORMAL); POIKILOCYTOSIS SLIGHT
[2018-05-17 13:49] LABS: HYPOCHROMIC SLIGHT; OVALOCYTES SLIGHT; POLYCHROMIC SLIGHT
[2018-05-17 13:54] LABS: LYMPH # 0.2 K/uL (1.0-4.3); MONO # 0.1 K/uL (0.0-0.8); NEUT # 1.6 K/uL (1.8-7.0)
--- NOTE | 2018-05-17 15:14 | CP.PCM.CON ---
History of Present Illness - History of Present Illness History of Present Illness: 72 year old female presents to the ED complaining of left leg pain Was admitted t tele and started on empiric IV antibiotics Yesterday had a rapid response due to hypotension Reportedly non compliant with medications Now intubated on mechanical ventilation with sepsis / organ failure in need of HD Has + blood cultures reports PCN allergy - Unclear severity / type - Medical History PMH: CAD, CHF, Diabetes, HTN Surgical History: CABG Family History: States: No Known Family Hx - Social History Hx Alcohol Use: No Hx Substance Use: No Review of Systems - Review of Systems Systems not reviewed;Unavailable: Altered Mental Status - Constitutional Constitutional: As Per HPI - EENT Eyes: absent: As Per HPI, Blind Spots, Blurred Vision, Change in Vision, Decreased Night Vision, Diplopia, Discharge, Dry Eye, Exophthalmos, Floaters, Irritation, Itchy Eyes, Loss of Peripheral Vision, Pain, Photophobia, Requires Corrective Lenses, Sees Flashes, Spots in Vision, Tunnel Vision, Other Visual Disturbances, Loss of Vision, Other Ears: absent: As Per HPI, Decreased Hearing, Ear Discharge, Ear Pain, Tinnitus, Abnormal Hearing, Disequilibrium, Dizziness, Other Nose/Mouth/Throat: absent: As Per HPI, Epistaxis, Nasal Congestion, Nasal Discharge, Nasal Obstruction, Nasal Trauma, Nose Pain, Post Nasal Drip, Sinus Pain, Sinus Pressure, Bleeding Gums, Change in Voice, Dental Pain, Dry Mouth, Dysphagia, Halitosis, Hoarsness, Lip Swelling, Mouth Lesions, Mouth Pain, Odynophagia, Sore Throat, Throat Swelling, Tongue Swelling, Facial Pain, Neck Pain, Neck Mass, Other - Breasts Breasts: absent: As Per HPI, Change in Shape, Mass, Pain, Nipple Discharge, Nipple Inversion, Skin Changes, Swelling, Other - Cardiovascular Cardiovascular: As Per HPI - Respiratory Respiratory: As Per HPI - Gastrointestinal Gastrointestinal: absent: As Per HPI, Abdominal Pain, Belching, Bloating, Change in Bowel Habits, Change in Stool Character, Coffee Ground Emesis, Constipation, Cramping, Diarrhea, Dyspepsia, Dysphagia, Early Satiety, Excessive Flatus, Fecal Incontinence, Heartburn, Hematemesis, Hematochezia, Loose Stools, Melena, Nause a, Odynophagia, Temesmus, Vomiting, Other - Genitourinary Genitourinary: absent: As Per HPI, Change in Urinary Stream, Difficulty Urinating, Dysuria, Flank Pain, Hematuria, Pyuria, Nocturia, Urinary Incontinence, Urinary Frequency, Urinary Hesitance, Urinary Urgency, Voiding Freq/Small Amts, Freq UTI, Hx Renal/Bladder Calculi, Hx /Renal Surgery, Bladder Distension, Other - Reproductive: Female Reproductive:Female: absent: As Per HPI, Amenorrhea, Amenorrhea/ Control, Currently Menstual, Cycle <21 Days, Cycle >35 Days, Cycle Variable, Menses 1-7 Days, Menses >/= 8 Days, Menses Variable, Cycle > 4 Weeks Between, No Menses for 6 Months, Heavy Menses, Light Menses, Normal Menses, Spotting Between Cycles, S/P Hysterectomy, Menopausal, Post Menopausal, Premenarche, Abnormal Vaginal Bleeding, Dysmenorrhea, Dyspareunia, Genital Lesions, Genital Pruritis, Pelvic Pain, Prolapse Symptoms, Sexual Dysfunction, Vaginal Discharge, Vaginal Dryness, Vaginal Odor, Vaginal Pruritis, Other - Menstruation Menstruation: absent: As Per HPI, Amenorrhea, Amenorrhea/ Control, Curre ntly Menstual, Cycle <21 Days, Cycle >35 Days, Cycle Variable, Menses 1-7 Days, Menses >/= 8 Days, Menses Variable, Cycle > 4 Weeks Between, No Menses for 6 Months, Heavy Menses, Light Menses, Normal Menses, Spotting Between Cycles, S/P Hysterectomy, Menopausal, Post Menopausal, Premenarche, Abnormal Vaginal Bleeding, Dysmenorrhea, Other - Musculoskeletal Musculoskeletal: As Per HPI - Integumentary Integumentary: As Per HPI - Neurological Neurological: absent: As Per HPI, Abnormal Gait, Abnormal Hearing, Abnormal Movements, Abnormal Speech, Behavioral Changes, Burning Sensations, Confusion, Convulsions, Disequilibrium, Dizziness, Numbness, Focal Weakness, Frequent Falls, Headaches, Lack of Coordination, Loss of Vision, Memory Loss, Paresthesias, Radicular Pain, Restless Legs, Sensory Deficit, Syncope, Tingling, Tremor, Vertigo, Weakness, Other Visual Disturbances, Other - Psychiatric Psychiatric: absent: As Per HPI, Abnormal Sleep Pattern, Anhedonia, Anxiety, Auditory Hallucinations, Behavioral Changes, Change in Appetite, Change in Libido, Confusion, Depression, Difficulty Concentrating, Hallucinations, Homicidal Ideation, Hopelessness, Irritability, Memory Loss, Mood Swings, Panic Attacks, Paranoia, Suicidal Ideation, Visual Hallucinations, Tactile Hallucinations, Other - Endocrine Endocrine: absent: As Per HPI, Change in Body Appearance, Change in Libido, Cold Intolorance, Deepening of Voice, Excessive Sweating, Fatigue, Flushing, Heat Intolorance, Increase in Ring/Shoe/Hat Size, Palpitations, Polydipsia, Polyphagia, Polyuria, Other - Hematologic/Lymphatic Hematologic: absent: As Per HPI, Easy Bleeding, Easy Bruising, Lymphadenopathy, Other Past Patient History - Past Medical History & Family History Past Medical History?: Yes - Past Social History Smoking Status: Never Smoked - CARDIAC Hx Congestive Heart Failure: Yes Hx Hypertension: Yes - ENDOCRINE/METABOLIC Hx Endocrine Disorders: Yes Hx Diabetes Mellitus Type 2: Yes - MUSCULOSKELETAL/RHEUMATOLOGICAL Hx Falls: Yes - PSYCHIATRIC Hx Substance Use: No - SURGICAL HISTORY Hx Coronary Artery Bypass Graft: Yes - ANESTHESIA Hx Anesthesia: Yes Has any member of the family had a problem w/ anesthesia?: No Meds Allergies/Adverse Reactions: Allergies Allergy/AdvReac Type Severity Reaction Status Date / Time Penicillins Allergy Verified 05/15/18 11:34 - Medications Medications: Current Medications Acetaminophen (Tylenol 325mg Tab) 650 mg PO Q6 PRN PRN Reason: Fever >100.4 F or Pain Dextrose (Dextrose 50% Inj) 0 ml IV STAT PRN; Protocol PRN Reason: Hypoglycemia Protocol Dextrose (Glutose 15) 0 gm PO ONCE PRN; Protocol PRN Reason: Hypoglycemia Protocol Famotidine (Pepcid) 20 mg PO DAILY [facility] Last Admin: 05/16/18 12:16 Dose: 20 mg Glucagon (Glucagen Diagnostic Kit) 0 mg IM STAT PRN; Protocol PRN Reason: Hypoglycemia Protocol Heparin Sodium (Porcine) (Heparin) 5,000 units SC Q12H [facility] Last Admin: 05/16/18 18:21 Dose: 5,000 units Hydrocortisone Sodium Succinate (Solu-Cortef) 100 mg IV Q8H [facility] Vancomycin/Sodium Chloride (Vancomycin 1 Gm/Ns 200 Ml) 1 gm in 200 mls @ 133 mls/hr IVPB Q24H [facility]; Protocol Stop: 05/21/18 10:01 Last Admin: 05/16/18 11:01 Dose: 133 mls/hr Piperacillin Sod/Tazobactam Sod (Zosyn 2.25 Gm Iv Premix) 2.25 gm in 50 mls @ 100 mls/hr IVPB Q8H [facility]; Protocol Last Admin: 05/16/18 19:00 Dose: 100 mls/hr Dexmedetomidine HCl 200 mcg/ (Sodium Chloride) 50 mls @ 3.4 mls/hr IV TITR PRN; Protocol PRN Reason: Sedation Last Titration: 05/16/18 22:00 Dose: 0.7 mcg/kg/hr, 11.91 mls/hr Norepinephrine Bitartrate 8 mg (/ Sodium Chloride) 258 mls @ 7.74 mls/hr IV .Q24H PRN; Protocol PRN Reason: TITRATE PER MD ORDER Last Titration: 05/16/18 13:30 Dose: 3 mcg/min, 5.81 mls/hr Sodium Bicarbonate 75 meq/ (Sodium Chloride) 1,075 mls @ 125 mls/hr IV .Q8H36M [facility] Last Admin: 05/16/18 18:21 Dose: 125 mls/hr Dextrose (Dextrose 5% In Water 1000 Ml) 1,000 mls @ 0 mls/hr IV .Q0M PRN; Protocol PRN Reason: Hypoglycemia Protocol Insulin Aspart (Novolog) 0 unit SC Q6 [facility]; Protocol Pantoprazole Sodium (Protonix Inj) 40 mg IVP DAILY [facility] Physical Exam - Constitutional Appears: No Acute Distress, Confused - Head Exam Head Exam: ATRAUMATIC, NORMAL INSPECTION, NORMOCEPHALIC - Eye Exam Eye Exam: PERRL. absent: Scleral icterus - ENT Exam ENT Exam: Mucous Membranes Dry, Normal External Ear Exam - Neck Exam Neck exam: Negative for: Lymphadenopathy - Respiratory Exam Respiratory Exam: Decreased Breath Sounds, Clear to Auscultation Bilateral - Cardiovascular Exam Cardiovascular Exam: Tachycardia, REGULAR RHYTHM, +S1, +S2 - GI/Abdominal Exam GI & Abdominal Exam: Diminished Bowel Sounds, Soft. absent: Tenderness - Rectal Exam Rectal Exam: Deferred - Exam Exam: NORMAL INSPECTION - Extremities Exam Extremities exam: Positive for: pedal edema, pedal pulses present. Negative for: calf tenderness Additional comments: + edema + blisters left leg - Back Exam Back exam: absent: CVA tenderness (L), CVA tenderness (R) - Neurological Exam Neurological exam: Altered, CN II-XII Intact, Motor Sensory Deficit - Psychiatric Exam Psychiatric exam: Depressed Results - Vital Signs Recent Vital Signs: Last Vital Signs Temp 98.9 F 05/16/18 12:00 Pulse 84 05/16/18 22:00 Resp 14 05/16/18 22:00 BP 93/41 L 05/16/18 21:41 Pulse Ox 99 05/16/18 22:00 - Labs Result Diagrams: 05/17/18 06:09 05/17/18 06:09 Labs: Laboratory Results - last 24 hr 05/16/18 05/16/18 05/16/18 01:33 04:02 05:45 WBC RBC Hgb Hct MCV MCH MCHC RDW Plt Count MPV Puncture Site Rb pCO2 39 pO2 102 H HCO3 19.3 L ABG pH 7.29 L ABG Total CO2 20.0 L ABG O2 Saturation 96.4 ABG Base Excess -7.2 L ABG Hemoglobin 9.1 L ABG Carboxyhemoglobin 0.3 L POC ABG HHb (Measured) 3.6 ABG Methemoglobin 0.3 Nicolás Test Na A-a O2 Difference 170.0 Respiratory Index 1.7 Hgb O2 Saturation 95.7 Vent Mode Prvc Mechanical Rate 20 FiO2 45.0 Tidal Volume 400 PEEP 5 Sodium Potassium Chloride Carbon Dioxide Anion Gap BUN Creatinine Est GFR ( Amer) Est GFR (Non-Af Amer) POC Glucose (mg/dL) Random Glucose Lactic Acid 4.4 H* Calcium Phosphorus Magnesium Total Bilirubin AST ALT Alkaline Phosphatase Troponin I Total Protein Albumin Globulin Albumin/Globulin Ratio 25-OH Vitamin D Total Urine Color Coleen Urine Clarity Turbid Urine pH 7.0 Ur Specific Denhoff 1.017 Urine Protein 2+ H Urine Glucose (UA) Normal Urine Ketones Trace Urine Blood 3+ H Urine Nitrate Negative Urine Bilirubin Negative Urine Urobilinogen Normal Ur Leukocyte Esterase 1+ H Urine WBC (Auto) 127 H Urine RBC (Auto) 427 H Urine WBC Clumps (Auto) Many H Ur Squamous Epith Cells 53 H Amorphous Sediment Few H Urine Bacteria Many H S. pneumoniae Antigen 05/16/18 05/16/18 05/16/18 06:30 06:30 06:30 WBC 1.9 L* RBC 2.69 L Hgb 9.0 L Hct 28.4 L MCV 105.7 H MCH 33.6 H MCHC 31.8 L RDW 17.9 H Plt Count 61 L MPV 10.7 Puncture Site pCO2 pO2 HCO3 ABG pH ABG Total CO2 ABG O2 Saturation ABG Base Excess ABG Hemoglobin ABG Carboxyhemoglobin POC ABG HHb (Measured) ABG Methemoglobin Nicolás Test A-a O2 Difference Respiratory Index Hgb O2 Saturation Vent Mode Mechanical Rate FiO2 Tidal Volume PEEP Sodium 140 Potassium 3.8 Chloride 112 H Carbon Dioxide 18 L Anion Gap 14 BUN 62 H Creatinine 3.3 H Est GFR ( Amer) 17 Est GFR (Non-Af Amer) 14 POC Glucose (mg/dL) Random Glucose 81 D Lactic Acid Calcium 7.9 L Phosphorus 5.4 H Magnesium 1.8 Total Bilirubin 1.0 AST 76 H D ALT 16 Alkaline Phosphatase 31 L D Troponin I 0.5500 H* Total Protein 5.5 L Albumin 2.7 L Globulin 2.7 Albumin/Globulin Ratio 1.0 25-OH Vitamin D Total < 12.8 L Urine Color Urine Clarity Urine pH Ur Specific Denhoff Urine Protein Urine Glucose (UA) Urine Ketones Urine Blood Urine Nitrate Urine Bilirubin Urine Urobilinogen Ur Leukocyte Esterase Urine WBC (Auto) Urine RBC (Auto) Urine WBC Clumps (Auto) Ur Squamous Epith Cells Amorphous Sediment Urine Bacteria S. pneumoniae Antigen 05/16/18 05/16/18 05/16/18 13:06 16:30 18:06 WBC RBC Hgb Hct MCV MCH MCHC RDW Plt Count MPV Puncture Site pCO2 pO2 HCO3 ABG pH ABG Total CO2 ABG O2 Saturation ABG Base Excess ABG Hemoglobin ABG Carboxyhemoglobin POC ABG HHb (Measured) ABG Methemoglobin Nicolás Test A-a O2 Difference Respiratory Index Hgb O2 Saturation Vent Mode Mechanical Rate FiO2 Tidal Volume PEEP Sodium Potassium Chloride Carbon Dioxide Anion Gap BUN Creatinine Est GFR ( Amer) Est GFR (Non-Af Amer) POC Glucose (mg/dL) 78 73 Random Glucose Lactic Acid Calcium Phosphorus Magnesium Total Bilirubin AST ALT Alkaline Phosphatase Troponin I Total Protein Albumin Globulin Albumin/Globulin Ratio 25-OH Vitamin D Total Urine Color Urine Clarity Urine pH Ur Specific Denhoff Urine Protein Urine Glucose (UA) Urine Ketones Urine Blood Urine Nitrate Urine Bilirubin Urine Urobilinogen Ur Leukocyte Esterase Urine WBC (Auto) Urine RBC (Auto) Urine WBC Clumps (Auto) Ur Squamous Epith Cells Amorphous Sediment Urine Bacteria S. pneumoniae Antigen Negative Assessment & Plan (1) Multi-organ system dysfunction Status: Acute (2) Septic shock Status: Acute (3) Cellulitis of left lower extremity Status: Acute (4) Coagulopathy Status: Acute (5) Pancytopenia Status: Acute (6) Sepsis Status: Acute (7) Respiratory failure requiring intubation Status: Acute (8) Respiratory failure with hypoxia and hypercapnia Status: Acute (9) ARRON (acute kidney injury) Status: Acute - Assessment and Plan (Free Text) Assessment: cont empiric rx surgical eval supportive care- vent, pressors, HD , transfusions poor prognosis from outset
--- NOTE | 2018-05-17 15:21 | CP.CCUPN ---
CCU Subjective - Physician Review Events Since Last Encounter (Free Text): 05/17/18 15:18 intubated and sedated. CCU Objective - Vital Signs / Intake & Output Vital Signs (Last 4 hours): Vital Signs Pulse Resp BP Pulse Ox 05/17/18 12:00 71 16 99 05/17/18 11:54 76 13 119/47 L 99 05/17/18 11:22 77 18 121/49 L 100 Intake and Output (Last 8hrs): Intake & Output 05/17/18 05/17/18 05/17/18 06:59 14:59 22:59 Intake Total 1201.4 1127.8 Output Total 45 195 Balance 1156.4 932.8 Weight 151 lb 0.16 oz Intake: IV 136 265 Intake, IV Amount 1065.4 862.8 Left Antecubital 20 Left Forearm 750 450 Right Antecubital 133 Right Forearm 267.5 Right Internal Jugular 46.4 23.3 Trialysis Catheter right ac y port 136 102 Output: Gastric Amount 180 Nares 180 Urine 45 15 Urethral (Wolf) 45 15 Other: # Bowel Movements 0 0 - Physical Exam Head: Positive for: Atraumatic, Normocephalic Pupils: Positive for: PERRL Extroacular Muscles: Positive for: EOMI Conjunctiva: Positive for: Normal Ears: Positive for: Normal Mouth: Positive for: Moist Mucous Membranes Nose (External): Positive for: Atraumatic Respiratory/Chest: Positive for: Clear to Auscultation Cardiovascular: Positive for: Regular Rate and Rhythm Abdomen: Positive for: Normal Bowel Sounds. Negative for: Tenderness, Distention Upper Extremity: Positive for: Edema Lower Extremity: Positive for: Edema Psychiatric: Negative for: Alert, Oriented x 3 - Medications Active Medications: Active Medications Generic Name Dose Route Start Last Admin Trade Name Freq PRN Reason Stop Dose Admin Acetaminophen 650 mg 05/15/18 17:47 Tylenol 325mg Tab PO Q6 PRN Fever >100.4 F or Pain Dextrose 0 ml 05/16/18 18:32 Dextrose 50% Inj IV STAT PRN Hypoglycemia Protocol Protocol Dextrose 0 gm 05/16/18 18:32 Glutose 15 PO ONCE PRN Hypoglycemia Protocol Protocol Glucagon 0 mg 05/16/18 18:32 Glucagen Diagnostic Kit IM STAT PRN Hypoglycemia Protocol Protocol Heparin Sodium (Porcine) 5,000 units 05/16/18 17:45 05/17/18 05:08 Heparin SC 5,000 units Q12H [facility] Administration Hydrocortisone Sodium Succinate 100 mg 05/17/18 04:00 05/17/18 11:48 Solu-Cortef IV 100 mg Q8H [facility] Administration Vancomycin/Sodium Chloride 1 gm in 200 mls @ 133 mls/hr 05/16/18 10:00 05/17/18 10:43 Vancomycin 1 Gm/Ns 200 Ml IVPB 05/21/18 10:01 133 mls/hr Q24H [facility] Administration Protocol Piperacillin Sod/Tazobactam Sod 2.25 gm in 50 mls @ 100 mls/hr 05/15/18 19:00 05/17/18 11:15 Zosyn 2.25 Gm Iv Premix IVPB 100 mls/hr Q8H [facility] Administration Protocol Dexmedetomidine HCl 200 mcg/ 50 mls @ 3.4 mls/hr 05/15/18 20:23 05/17/18 15:12 Sodium Chloride IV 0.99 mcg/kg/hr TITR PRN 17 mls/hr Sedation Administration Protocol 0.2 MCG/KG/HR Norepinephrine Bitartrate 8 mg 258 mls @ 7.74 mls/hr 05/16/18 11:55 05/17/18 11:55 / Sodium Chloride IV 1 mcg/min .Q24H PRN 1.94 mls/hr TITRATE PER MD ORDER Titration Protocol 4 MCG/MIN Dextrose 1,000 mls @ 0 mls/hr 05/16/18 18:32 Dextrose 5% In Water 1000 Ml IV .Q0M PRN Hypoglycemia Protocol Protocol Per Protocol Clindamycin Phosphate 600 mg/ 54 mls @ 100 mls/hr 05/17/18 15:15 Sodium Chloride IVPB Q8H [facility] Protocol Aztreonam 1 gm/ Sodium 100 mls @ 100 mls/hr 05/17/18 15:15 Chloride IVPB Q12H [facility] Protocol Insulin Aspart 0 unit 05/17/18 00:00 05/17/18 11:43 Novolog SC Not Given Q6 [facility] Protocol Pantoprazole Sodium 40 mg 05/17/18 10:00 05/17/18 11:20 Protonix Inj IVP 40 mg DAILY [facility] Administration - Patient Studies Lab Studies: Microbiology Studies 05/15/18 11:30 Blood Culture - Preliminary Blood Gram Pos Cocci In Chains Gram Stain - Final 05/15/18 11:20 S.aureus & Coag-Neg Staph PNA FISH - Final Blood Blood Culture - Preliminary Gram Pos Cocci In Chains Gram Stain - Final Lab Studies 05/17/18 05/17/18 05/17/18 Range/Units 07:56 06:09 06:09 WBC (4.8-10.8) K/uL RBC (3.80-5.20) Mil/uL Hgb (11.0-16.0) g/dL Hct (34.0-47.0) % MCV (81.0-99.0) fL MCH (27.0-31.0) pg MCHC (33.0-37.0) g/dL RDW (11.5-14.5) % Plt Count (130-400) K/uL MPV (7.2-11.7) fL Neut % (Auto) (50.0-75.0) % Lymph % (Auto) (20.0-40.0) % [place] % (Auto) (0.0-10.0) % Eos % (Auto) (0.0-4.0) % Baso % (Auto) (0.0-2.0) % Neut # (Auto) (1.8-7.0) K/uL Lymph # (Auto) (1.0-4.3) K/uL [place] # (Auto) (0.0-0.8) K/uL Eos # (Auto) (0.0-0.7) K/uL Baso # (Auto) (0.0-0.2) K/uL Neutrophils % (Manual) (50-75) % Band Neutrophils % (0-2) % Lymphocytes % (Manual) (20-40) % Monocytes % (Manual) (0-10) % Eosinophils % (Manual) (0-4) % Metamyelocytes % (0-0) % Myelocytes % (0-0) % Platelet Estimate (NORMAL) Polychromasia Hypochromasia (manual) Poikilocytosis (manual Anisocytosis (manual) Macrocytosis (manual) Ovalocytes Retic Count (0.5-1.5) % PT 19.8 H (9.7-12.2) SECONDS INR 1.8 APTT 40 H D (21-34) SECONDS Fibrinogen 317 (200-400) mg/dL Puncture Site pCO2 (35-45) mm/Hg pO2 (80-100) mm/Hg HCO3 (21-28) mmol/L ABG pH (7.35-7.45) ABG Total CO2 (22-28) mmol/L ABG O2 Saturation (95-98) % ABG Base Excess (-2.0-3.0) mmol/L Nicolás Test ABG Potassium (3.6-5.2) mmol/L A-a O2 Difference mm/Hg Respiratory Index Sodium (132-148) mmol/l Chloride (98-107) mmol/L Glucose (65-105) mg/dl Lactate (0.7-2.1) mmol/L Vent Mode Mechanical Rate FiO2 % Tidal Volume PEEP Potassium (3.6-5.2) mmol/L Carbon Dioxide (22-30) mmol/L Anion Gap (10-20) BUN (7-17) mg/dL Creatinine (0.7-1.2) mg/dL Est GFR ( Amer) Est GFR (Non-Af Amer) POC Glucose (mg/dL) (65-110) mg/dL Random Glucose (65-105) mg/dL Calcium (8.6-10.4) mg/dl Total Bilirubin (0.2-1.3) mg/dL AST (14-36) U/L ALT (9-52) U/L Alkaline Phosphatase (38-126) U/L Troponin I 1.2800 H* (0.00-0.120) ng/mL Total Protein (6.3-8.3) g/dL Albumin (3.5-5.0) g/dL Globulin (2.2-3.9) gm/dL Albumin/Globulin Ratio (1.0-2.1) Arterial Blood Potassium (3.6-5.2) mmol/L Random Vancomycin 20.9 ug/mL S. pneumoniae Antigen (NEGATIVE) 05/17/18 05/17/18 05/17/18 Range/Units 06:09 06:09 05:37 WBC 10.1 D (4.8-10.8) K/uL RBC 2.55 L (3.80-5.20) Mil/uL Hgb 8.8 L (11.0-16.0) g/dL Hct 27.0 L (34.0-47.0) % MCV 106.0 H (81.0-99.0) fL MCH 34.4 H (27.0-31.0) pg MCHC 32.4 L (33.0-37.0) g/dL RDW 17.7 H (11.5-14.5) % Plt Count 62 L (130-400) K/uL MPV 12.1 H (7.2-11.7) fL Neut % (Auto) 93.8 H (50.0-75.0) % Lymph % (Auto) 2.1 L (20.0-40.0) % [place] % (Auto) 3.7 (0.0-10.0) % Eos % (Auto) 0.2 (0.0-4.0) % Baso % (Auto) 0.2 (0.0-2.0) % Neut # (Auto) 9.5 H (1.8-7.0) K/uL Lymph # (Auto) 0.2 L (1.0-4.3) K/uL [place] # (Auto) 0.4 (0.0-0.8) K/uL Eos # (Auto) 0.0 (0.0-0.7) K/uL Baso # (Auto) 0.0 (0.0-0.2) K/uL Neutrophils % (Manual) 50 (50-75) % Band Neutrophils % 30 H* (0-2) % Lymphocytes % (Manual) 4 L (20-40) % Monocytes % (Manual) 3 (0-10) % Eosinophils % (Manual) 9 H (0-4) % Metamyelocytes % 3 H (0-0) % Myelocytes % 1 H (0-0) % Platelet Estimate Decreased L (NORMAL) Polychromasia Slight Hypochromasia (manual) Slight Poikilocytosis (manual Slight Anisocytosis (manual) Slight Macrocytosis (manual) Moderate Ovalocytes Slight Retic Count 1.0 (0.5-1.5) % PT (9.7-12.2) SECONDS INR APTT (21-34) SECONDS Fibrinogen (200-400) mg/dL Puncture Site L rad pCO2 41 (35-45) mm/Hg pO2 83 (80-100) mm/Hg HCO3 20.3 L (21-28) mmol/L ABG pH 7.30 L (7.35-7.45) ABG Total CO2 21.5 L (22-28) mmol/L ABG O2 Saturation 95.8 (95-98) % ABG Base Excess -5.9 L (-2.0-3.0) mmol/L Nicolás Test Pos ABG Potassium 4.2 (3.6-5.2) mmol/L A-a O2 Difference 187.0 mm/Hg Respiratory Index 2.3 Sodium 141 140.0 (132-148) mmol/l Chloride 109 H 110.0 H (98-107) mmol/L Glucose 93 (65-105) mg/dl Lactate 1.4 (0.7-2.1) mmol/L Vent Mode Prvc Mechanical Rate 18 FiO2 45.0 % Tidal Volume 400 PEEP 5 Potassium 4.4 (3.6-5.2) mmol/L Carbon Dioxide 22 (22-30) mmol/L Anion Gap 14 (10-20) BUN 66 H (7-17) mg/dL Creatinine 3.8 H (0.7-1.2) mg/dL Est GFR ( Amer) 14 Est GFR (Non-Af Amer) 12 POC Glucose (mg/dL) (65-110) mg/dL Random Glucose 94 (65-105) mg/dL Calcium 7.5 L (8.6-10.4) mg/dl Total Bilirubin 1.3 (0.2-1.3) mg/dL AST 58 H D (14-36) U/L ALT 24 (9-52) U/L Alkaline Phosphatase 33 L (38-126) U/L Troponin I (0.00-0.120) ng/mL Total Protein 5.0 L (6.3-8.3) g/dL Albumin 2.3 L (3.5-5.0) g/dL Globulin 2.7 (2.2-3.9) gm/dL Albumin/Globulin Ratio 0.9 L (1.0-2.1) Arterial Blood Potassium 4.2 (3.6-5.2) mmol/L Random Vancomycin ug/mL S. pneumoniae Antigen (NEGATIVE) 05/17/18 05/17/18 05/17/18 Range/Units 01:21 00:32 00:30 WBC (4.8-10.8) K/uL RBC (3.80-5.20) Mil/uL Hgb (11.0-16.0) g/dL Hct (34.0-47.0) % MCV (81.0-99.0) fL MCH (27.0-31.0) pg MCHC (33.0-37.0) g/dL RDW (11.5-14.5) % Plt Count (130-400) K/uL MPV (7.2-11.7) fL Neut % (Auto) (50.0-75.0) % Lymph % (Auto) (20.0-40.0) % [place] % (Auto) (0.0-10.0) % Eos % (Auto) (0.0-4.0) % Baso % (Auto) (0.0-2.0) % Neut # (Auto) (1.8-7.0) K/uL Lymph # (Auto) (1.0-4.3) K/uL [place] # (Auto) (0.0-0.8) K/uL Eos # (Auto) (0.0-0.7) K/uL Baso # (Auto) (0.0-0.2) K/uL Neutrophils % (Manual) (50-75) % Band Neutrophils % (0-2) % Lymphocytes % (Manual) (20-40) % Monocytes % (Manual) (0-10) % Eosinophils % (Manual) (0-4) % Metamyelocytes % (0-0) % Myelocytes % (0-0) % Platelet Estimate (NORMAL) Polychromasia Hypochromasia (manual) Poikilocytosis (manual Anisocytosis (manual) Macrocytosis (manual) Ovalocytes Retic Count (0.5-1.5) % PT (9.7-12.2) SECONDS INR APTT (21-34) SECONDS Fibrinogen (200-400) mg/dL Puncture Site pCO2 (35-45) mm/Hg pO2 (80-100) mm/Hg HCO3 (21-28) mmol/L ABG pH (7.35-7.45) ABG Total CO2 (22-28) mmol/L ABG O2 Saturation (95-98) % ABG Base Excess (-2.0-3.0) mmol/L Nicolás Test ABG Potassium (3.6-5.2) mmol/L A-a O2 Difference mm/Hg Respiratory Index Sodium (132-148) mmol/l Chloride (98-107) mmol/L Glucose (65-105) mg/dl Lactate (0.7-2.1) mmol/L Vent Mode Mechanical Rate FiO2 % Tidal Volume PEEP Potassium (3.6-5.2) mmol/L Carbon Dioxide (22-30) mmol/L Anion Gap (10-20) BUN (7-17) mg/dL Creatinine (0.7-1.2) mg/dL Est GFR ( Amer) Est GFR (Non-Af Amer) POC Glucose (mg/dL) 122 H 60 L 51 L (65-110) mg/dL Random Glucose (65-105) mg/dL Calcium (8.6-10.4) mg/dl Total Bilirubin (0.2-1.3) mg/dL AST (14-36) U/L ALT (9-52) U/L Alkaline Phosphatase (38-126) U/L Troponin I (0.00-0.120) ng/mL Total Protein (6.3-8.3) g/dL Albumin (3.5-5.0) g/dL Globulin (2.2-3.9) gm/dL Albumin/Globulin Ratio (1.0-2.1) Arterial Blood Potassium (3.6-5.2) mmol/L Random Vancomycin ug/mL S. pneumoniae Antigen (NEGATIVE) 05/16/18 05/16/18 05/16/18 Range/Units 18:06 16:30 06:30 WBC (4.8-10.8) K/uL RBC (3.80-5.20) Mil/uL Hgb (11.0-16.0) g/dL Hct (34.0-47.0) % MCV (81.0-99.0) fL MCH (27.0-31.0) pg MCHC (33.0-37.0) g/dL RDW (11.5-14.5) % Plt Count (130-400) K/uL MPV (7.2-11.7) fL Neut % (Auto) 85.0 H (50.0-75.0) % Lymph % (Auto) 10.0 L (20.0-40.0) % [place] % (Auto) 5.0 (0.0-10.0) % Eos % (Auto) 0.0 (0.0-4.0) % Baso % (Auto) 0.0 (0.0-2.0) % Neut # (Auto) 1.6 L (1.8-7.0) K/uL Lymph # (Auto) 0.2 L (1.0-4.3) K/uL [place] # (Auto) 0.1 (0.0-0.8) K/uL Eos # (Auto) 0.0 (0.0-0.7) K/uL Baso # (Auto) 0.0 (0.0-0.2) K/uL Neutrophils % (Manual) (50-75) % Band Neutrophils % (0-2) % Lymphocytes % (Manual) (20-40) % Monocytes % (Manual) (0-10) % Eosinophils % (Manual) (0-4) % Metamyelocytes % (0-0) % Myelocytes % (0-0) % Platelet Estimate (NORMAL) Polychromasia Hypochromasia (manual) Poikilocytosis (manual Anisocytosis (manual) Macrocytosis (manual) Ovalocytes Retic Count (0.5-1.5) % PT (9.7-12.2) SECONDS INR APTT (21-34) SECONDS Fibrinogen (200-400) mg/dL Puncture Site pCO2 (35-45) mm/Hg pO2 (80-100) mm/Hg HCO3 (21-28) mmol/L ABG pH (7.35-7.45) ABG Total CO2 (22-28) mmol/L ABG O2 Saturation (95-98) % ABG Base Excess (-2.0-3.0) mmol/L Nicolás Test ABG Potassium (3.6-5.2) mmol/L A-a O2 Difference mm/Hg Respiratory Index Sodium (132-148) mmol/l Chloride (98-107) mmol/L Glucose (65-105) mg/dl Lactate (0.7-2.1) mmol/L Vent Mode Mechanical Rate FiO2 % Tidal Volume PEEP Potassium (3.6-5.2) mmol/L Carbon Dioxide (22-30) mmol/L Anion Gap (10-20) BUN (7-17) mg/dL Creatinine (0.7-1.2) mg/dL Est GFR ( Amer) Est GFR (Non-Af Amer) POC Glucose (mg/dL) 73 (65-110) mg/dL Random Glucose (65-105) mg/dL Calcium (8.6-10.4) mg/dl Total Bilirubin (0.2-1.3) mg/dL AST (14-36) U/L ALT (9-52) U/L Alkaline Phosphatase (38-126) U/L Troponin I (0.00-0.120) ng/mL Total Protein (6.3-8.3) g/dL Albumin (3.5-5.0) g/dL Globulin (2.2-3.9) gm/dL Albumin/Globulin Ratio (1.0-2.1) Arterial Blood Potassium (3.6-5.2) mmol/L Random Vancomycin ug/mL S. pneumoniae Antigen Negative (NEGATIVE) Laboratory Results - last 24 hr 05/16/18 05/16/18 05/16/18 06:30 16:30 18:06 WBC RBC Hgb Hct MCV MCH MCHC RDW Plt Count MPV Neut % (Auto) 85.0 H Lymph % (Auto) 10.0 L [place] % (Auto) 5.0 Eos % (Auto) 0.0 Baso % (Auto) 0.0 Neut # (Auto) 1.6 L Lymph # (Auto) 0.2 L [place] # (Auto) 0.1 Eos # (Auto) 0.0 Baso # (Auto) 0.0 Neutrophils % (Manual) Band Neutrophils % Lymphocytes % (Manual) Monocytes % (Manual) Eosinophils % (Manual) Metamyelocytes % Myelocytes % Platelet Estimate Polychromasia Hypochromasia (manual) Poikilocytosis (manual Anisocytosis (manual) Macrocytosis (manual) Ovalocytes Retic Count PT INR APTT Fibrinogen Puncture Site pCO2 pO2 HCO3 ABG pH ABG Total CO2 ABG O2 Saturation ABG Base Excess Nicolás Test ABG Potassium A-a O2 Difference Respiratory Index Sodium Chloride Glucose Lactate Vent Mode Mechanical Rate FiO2 Tidal Volume PEEP Potassium Carbon Dioxide Anion Gap BUN Creatinine Est GFR ( Amer) Est GFR (Non-Af Amer) POC Glucose (mg/dL) 73 Random Glucose Calcium Total Bilirubin AST ALT Alkaline Phosphatase Troponin I Total Protein Albumin Globulin Albumin/Globulin Ratio Arterial Blood Potassium Random Vancomycin S. pneumoniae Antigen Negative 05/17/18 05/17/18 05/17/18 00:30 00:32 01:21 WBC RBC Hgb Hct MCV MCH MCHC RDW Plt Count MPV Neut % (Auto) Lymph % (Auto) [place] % (Auto) Eos % (Auto) Baso % (Auto) Neut # (Auto) Lymph # (Auto) [place] # (Auto) Eos # (Auto) Baso # (Auto) Neutrophils % (Manual) Band Neutrophils % Lymphocytes % (Manual) Monocytes % (Manual) Eosinophils % (Manual) Metamyelocytes % Myelocytes % Platelet Estimate Polychromasia Hypochromasia (manual) Poikilocytosis (manual Anisocytosis (manual) Macrocytosis (manual) Ovalocytes Retic Count PT INR APTT Fibrinogen Puncture Site pCO2 pO2 HCO3 ABG pH ABG Total CO2 ABG O2 Saturation ABG Base Excess Nicolás Test ABG Potassium A-a O2 Difference Respiratory Index Sodium Chloride Glucose Lactate Vent Mode Mechanical Rate FiO2 Tidal Volume PEEP Potassium Carbon Dioxide Anion Gap BUN Creatinine Est GFR ( Amer) Est GFR (Non-Af Amer) POC Glucose (mg/dL) 51 L 60 L 122 H Random Glucose Calcium Total Bilirubin AST ALT Alkaline Phosphatase Troponin I Total Protein Albumin Globulin Albumin/Globulin Ratio Arterial Blood Potassium Random Vancomycin S. pneumoniae Antigen 05/17/18 05/17/18 05/17/18 05:37 06:09 06:09 WBC 10.1 D RBC 2.55 L Hgb 8.8 L Hct 27.0 L MCV 106.0 H MCH 34.4 H MCHC 32.4 L RDW 17.7 H Plt Count 62 L MPV 12.1 H Neut % (Auto) 93.8 H Lymph % (Auto) 2.1 L [place] % (Auto) 3.7 Eos % (Auto) 0.2 Baso % (Auto) 0.2 Neut # (Auto) 9.5 H Lymph # (Auto) 0.2 L [place] # (Auto) 0.4 Eos # (Auto) 0.0 Baso # (Auto) 0.0 Neutrophils % (Manual) 50 Band Neutrophils % 30 H* Lymphocytes % (Manual) 4 L Monocytes % (Manual) 3 Eosinophils % (Manual) 9 H Metamyelocytes % 3 H Myelocytes % 1 H Platelet Estimate Decreased L Polychromasia Slight Hypochromasia (manual) Slight Poikilocytosis (manual Slight Anisocytosis (manual) Slight Macrocytosis (manual) Moderate Ovalocytes Slight Retic Count 1.0 PT INR APTT Fibrinogen Puncture Site L rad pCO2 41 pO2 83 HCO3 20.3 L ABG pH 7.30 L ABG Total CO2 21.5 L ABG O2 Saturation 95.8 ABG Base Excess -5.9 L Nicolás Test Pos ABG Potassium 4.2 A-a O2 Difference 187.0 Respiratory Index 2.3 Sodium 140.0 141 Chloride 110.0 H 109 H Glucose 93 Lactate 1.4 Vent Mode Prvc Mechanical Rate 18 FiO2 45.0 Tidal Volume 400 PEEP 5 Potassium 4.4 Carbon Dioxide 22 Anion Gap 14 BUN 66 H Creatinine 3.8 H Est GFR ( Amer) 14 Est GFR (Non-Af Amer) 12 POC Glucose (mg/dL) Random Glucose 94 Calcium 7.5 L Total Bilirubin 1.3 AST 58 H D ALT 24 Alkaline Phosphatase 33 L Troponin I Total Protein 5.0 L Albumin 2.3 L Globulin 2.7 Albumin/Globulin Ratio 0.9 L Arterial Blood Potassium 4.2 Random Vancomycin S. pneumoniae Antigen 05/17/18 05/17/18 05/17/18 06:09 06:09 07:56 WBC RBC Hgb Hct MCV MCH MCHC RDW Plt Count MPV Neut % (Auto) Lymph % (Auto) [place] % (Auto) Eos % (Auto) Baso % (Auto) Neut # (Auto) Lymph # (Auto) [place] # (Auto) Eos # (Auto) Baso # (Auto) Neutrophils % (Manual) Band Neutrophils % Lymphocytes % (Manual) Monocytes % (Manual) Eosinophils % (Manual) Metamyelocytes % Myelocytes % Platelet Estimate Polychromasia Hypochromasia (manual) Poikilocytosis (manual Anisocytosis (manual) Macrocytosis (manual) Ovalocytes Retic Count PT 19.8 H INR 1.8 APTT 40 H D Fibrinogen 317 Puncture Site pCO2 pO2 HCO3 ABG pH ABG Total CO2 ABG O2 Saturation ABG Base Excess Nicolás Test ABG Potassium A-a O2 Difference Respiratory Index Sodium Chloride Glucose Lactate Vent Mode Mechanical Rate FiO2 Tidal Volume PEEP Potassium Carbon Dioxide Anion Gap BUN Creatinine Est GFR ( Amer) Est GFR (Non-Af Amer) POC Glucose (mg/dL) Random Glucose Calcium Total Bilirubin AST ALT Alkaline Phosphatase Troponin I 1.2800 H* Total Protein Albumin Globulin Albumin/Globulin Ratio Arterial Blood Potassium Random Vancomycin 20.9 S. pneumoniae Antigen Radiology Impressions: Radiology Impressions Chest X-Ray 05/15/18 16:34 IMPRESSION: Megaly and pulmonary vascular congestion suggestive of CHF. Chest X-Ray 05/16/18 07:00 IMPRESSION: Cardiomegaly and pulmonary vascular congestion noted. Chest X-Ray 05/16/18 15:39 IMPRESSION: Low position of the new right jugular central line. Otherwise no significant interval changes. Chest X-Ray 05/17/18 19:55 IMPRESSION: Interval slight improvement in the pulmonary vascular congestion. Otherwise no significant interval changes. Fingerstick Blood Sugar Results: 104 Review of Systems - Review of Systems Systems not reviewed;Unavailable: Intubated Assessment/Plan (1) Cellulitis of left lower extremity Assessment and plan: 72yo F. PMHx CHF, CAD, HTN, hyperlipidemia, hypothyroidism, DM type 2, CKD. p/w cellulitis that has progressed to septic shock, with streptococcal bacteremia and ATN. Neuro: sedated with precedex gtt. Pulm: acute respiratory failure from aspiration of bilious vomitus. intubated on vent, PRVC. CV: septic shock on levophed. Hem: anemia of chronic disease, bandemia, neutropenia resolved. Thrombocytopenia from sepsis. Renal: oliguirc ATN. starting on dialysis (05/17). Endo: DM type 2, SISS for coverage GI: NPO, starting Glucerna. ID: septic shock with gram positive bacteremia from LLE cellulitis, awaiting s/s, suspecting streptococcus. Continue Vancomycin and DVT proph - heparin sq GI proph - protonix wofl for strict I/O's during acute illness Code status - full code RIJ trialysis (05/16) Critical Care Time spent 35 minutes Multi-disciplinary rounds were performed with house staff, nursing, speech therapy, respiratory therapy, pharmacy and nutrition with integrated input from the primary team/attending and other consulting services. The documented time is cumulative and includes review of patient data/exams/labs/chart review and examination of the patient on rounds and throughout the day; time is exclusive of any procedures or teaching time. Current Visit: Yes Status: Acute
--- NOTE | 2018-05-17 15:34 | HP ---
HISTORY OF PRESENT ILLNESS: The patient is admitted to the hospital with cellulitis of the lower extremities. The patient came to the ER, advised admission. PHYSICAL EXAMINATION: GENERAL: The patient is awake, alert and oriented. VITAL SIGNS: Temperature 98, pulse 90. HEENT: With normal limits. NECK: Supple. CHEST: Symmetrical. HEART: Regular. ABDOMEN: Soft. EXTREMITIES: cellulitis. IMPRESSION: The patient suffers from cellulitis of the lower extremities. PLAN: The patient to get IV antibiotics. Alison Harp MD
[2018-05-17] MEDS: Aztreonam 1 GM in Sodium Chloride 0.9% 100 ML IVPB SCH ×3 (16:00→19:04)
--- NOTE | 2018-05-17 17:23 | CP.PCM.PN ---
Subjective - Date & Time of Evaluation Date of Evaluation: 05/17/18 Time of Evaluation: 17:23 - Subjective Subjective: renal note intubated sedated vitals reviewed UOP poor On ventilator. Hypotension noted. No jugular venous distention noted. Chest bilateral good air entry vent dep Heart sounds are regular Abdomen soft nontender. edema + ao times 0 Left lower extremity erythema, tenderness, and swelling noted ARRON/shock/acute resp failure/strep disease arron sec to ATN, oliguric with volume overload hd line placed, discussed dialysis with son over phone, agreeable will initiate hd today first session and second session tomorrow monitor UOP lytes reviewed abx per icu team Objective - Vital Signs/Intake and Output Vital Signs (last 24 hours): Temp Pulse Resp BP Pulse Ox 99.1 F 79 17 115/57 L 96 05/17/18 00:00 05/17/18 17:09 05/17/18 17:09 05/17/18 17:09 05/17/18 15:22 Intake and Output: 05/17/18 05/17/18 06:59 18:59 Intake Total 1959.8 1127.8 Output Total 58 195 Balance 1901.8 932.8 - Medications Medications: Current Medications Acetaminophen (Tylenol 325mg Tab) 650 mg PO Q6 PRN PRN Reason: Fever >100.4 F or Pain Dextrose (Dextrose 50% Inj) 0 ml IV STAT PRN; Protocol PRN Reason: Hypoglycemia Protocol Dextrose (Glutose 15) 0 gm PO ONCE PRN; Protocol PRN Reason: Hypoglycemia Protocol Glucagon (Glucagen Diagnostic Kit) 0 mg IM STAT PRN; Protocol PRN Reason: Hypoglycemia Protocol Heparin Sodium (Porcine) (Heparin) 5,000 units SC Q12H [facility] Last Admin: 05/17/18 05:08 Dose: 5,000 units Vancomycin/Sodium Chloride (Vancomycin 1 Gm/Ns 200 Ml) 1 gm in 200 mls @ 133 mls/hr IVPB Q24H [facility]; Protocol Stop: 05/21/18 10:01 Last Admin: 05/17/18 10:43 Dose: 133 mls/hr Dexmedetomidine HCl 200 mcg/ (Sodium Chloride) 50 mls @ 3.4 mls/hr IV TITR PRN; Protocol PRN Reason: Sedation Last Admin: 05/17/18 15:12 Dose: 0.99 mcg/kg/hr, 17 mls/hr Norepinephrine Bitartrate 8 mg (/ Sodium Chloride) 258 mls @ 7.74 mls/hr IV .Q24H PRN; Protocol PRN Reason: TITRATE PER MD ORDER Last Titration: 05/17/18 11:55 Dose: 1 mcg/min, 1.94 mls/hr Dextrose (Dextrose 5% In Water 1000 Ml) 1,000 mls @ 0 mls/hr IV .Q0M PRN; Protocol PRN Reason: Hypoglycemia Protocol Clindamycin Phosphate 600 mg/ (Sodium Chloride) 54 mls @ 100 mls/hr IVPB Q8H [facility]; Protocol Aztreonam 1 gm/ Sodium (Chloride) 100 mls @ 100 mls/hr IVPB Q12H [facility]; Protocol Insulin Aspart (Novolog) 0 unit SC Q6 [facility]; Protocol Last Admin: 05/17/18 11:43 Dose: Not Given Pantoprazole Sodium (Protonix Inj) 40 mg IVP DAILY [facility] Last Admin: 05/17/18 11:20 Dose: 40 mg - Labs Labs: 05/17/18 06:09 05/17/18 06:09 PT 19.8 SECONDS (9.7-12.2) H 05/17/18 06:09 INR 1.8 05/17/18 06:09 APTT 40 SECONDS (21-34) H D 05/17/18 06:09
--- NOTE | 2018-05-17 19:59 | CP.PCM.PN ---
Subjective - Date & Time of Evaluation Date of Evaluation: 05/17/18 Time of Evaluation: 15:00 - Subjective Subjective: Vented Objective - Vital Signs/Intake and Output Vital Signs (last 24 hours): Temp Pulse Resp BP Pulse Ox 100.4 F H 69 17 117/52 L 100 05/17/18 18:45 05/17/18 19:00 05/17/18 19:00 05/17/18 18:57 05/17/18 19:00 Intake and Output: 05/17/18 05/18/18 18:59 06:59 Intake Total 1381.2 75.9 Output Total 207 Balance 1174.2 75.9 - Medications Medications: Current Medications Acetaminophen (Tylenol 325mg Tab) 650 mg PO Q6 PRN PRN Reason: Fever >100.4 F or Pain Dextrose (Dextrose 50% Inj) 0 ml IV STAT PRN; Protocol PRN Reason: Hypoglycemia Protocol Dextrose (Glutose 15) 0 gm PO ONCE PRN; Protocol PRN Reason: Hypoglycemia Protocol Glucagon (Glucagen Diagnostic Kit) 0 mg IM STAT PRN; Protocol PRN Reason: Hypoglycemia Protocol Heparin Sodium (Porcine) (Heparin) 5,000 units SC Q12H LAURENCE Last Admin: 05/17/18 18:15 Dose: 5,000 units Vancomycin/Sodium Chloride (Vancomycin 1 Gm/Ns 200 Ml) 1 gm in 200 mls @ 133 mls/hr IVPB Q24H LAURENCE; Protocol Stop: 05/21/18 10:01 Last Admin: 05/17/18 10:43 Dose: 133 mls/hr Dexmedetomidine HCl 200 mcg/ (Sodium Chloride) 50 mls @ 3.4 mls/hr IV TITR PRN; Protocol PRN Reason: Sedation Last Admin: 05/17/18 18:23 Dose: 0.99 mcg/kg/hr, 17 mls/hr Norepinephrine Bitartrate 8 mg (/ Sodium Chloride) 258 mls @ 7.74 mls/hr IV .Q24H PRN; Protocol PRN Reason: TITRATE PER MD ORDER Last Titration: 05/17/18 19:07 Dose: 0 mcg/min, 0 mls/hr Dextrose (Dextrose 5% In Water 1000 Ml) 1,000 mls @ 0 mls/hr IV .Q0M PRN; Protocol PRN Reason: Hypoglycemia Protocol Aztreonam 1 gm/ Sodium (Chloride) 100 mls @ 100 mls/hr IVPB Q12H LAURENCE; Protocol Last Admin: 05/17/18 19:04 Dose: 100 mls/hr Clindamycin Phosphate 600 mg/ (Sodium Chloride) 54 mls @ 100 mls/hr IVPB Q8H LAURENCE; Protocol Insulin Aspart (Novolog) 0 unit SC Q6 LAURENCE; Protocol Last Admin: 05/17/18 18:12 Dose: Not Given Pantoprazole Sodium (Protonix Inj) 40 mg IVP DAILY LAURENCE Last Admin: 05/17/18 11:20 Dose: 40 mg - Labs Labs: 05/17/18 06:09 05/17/18 06:09 PT 19.8 SECONDS (9.7-12.2) H 05/17/18 06:09 INR 1.8 05/17/18 06:09 APTT 40 SECONDS (21-34) H D 05/17/18 06:09 - Head Exam Head Exam: ATRAUMATIC - Eye Exam Eye Exam: Normal appearance - ENT Exam ENT Exam: Mucous Membranes Dry - Respiratory Exam Respiratory Exam: NORMAL BREATHING PATTERN - Cardiovascular Exam Cardiovascular Exam: +S1, +S2 - GI/Abdominal Exam GI & Abdominal Exam: Normal Bowel Sounds - Extremities Exam Extremities Exam: Pedal Edema Assessment and Plan (1) Thrombocytopenia Assessment & Plan: sepsis cont. to monitor Status: Acute (2) Coagulopathy Assessment & Plan: sepsis nutritional Status: Acute (3) Anemia Assessment & Plan: chronic disease and renal disease transfusion support PRN Status: Acute
[2018-05-18] MEDS: Acetaminophen 650mg/20.3ml solution UD PO PRN ×2 (00:46→23:21)
[2018-05-18] MEDS: Dexmedetomidine Hydrochloride 200 MCG in Sodium Chloride 0.9% 48 ML IV PRN ×4 (00:49→22:23)
[2018-05-18 06:24] LABS: BASO % 0.1 % (0.0-2.0); EOS # 0.1 K/uL (0.0-0.7); EOS % 0.4 % (0.0-4.0); HEMOGLOBIN 8.2 g/dL (11.0-16.0); LYMPH # 0.3 K/uL (1.0-4.3); LYMPH % 2.1 % (20.0-40.0); MEAN CELL VOLUME 104.5 fL (81.0-99.0); MEAN CORPUSCULAR HEMOGLOBIN 33.5 pg (27.0-31.0); MEAN CORPUSCULAR HGB CONC 32.1 g/dL (33.0-37.0); MEAN PLATELET VOLUME 11.7 fL (7.2-11.7); MONO # 0.3 K/uL (0.0-0.8); MONO % 1.6 % (0.0-10.0); NEUT # 15.6 K/uL (1.8-7.0); NEUT % 95.8 % (50.0-75.0); NRBC % 0.2 % (0.0-2.0); PLATELET COUNT 46 K/uL (130-400); RBC 2.45 Mil/uL (3.80-5.20); RED CELL DISTRIBUTION WIDTH 17.3 % (11.5-14.5); WHITE BLOOD COUNT 16.3 K/uL (4.8-10.8)
[2018-05-18 06:25] LABS: ABG ALLEN TEST POS; ARTERIAL BLOOD GAS HCO3 21.9 mmol/L (21-28); ARTERIAL BLOOD GAS HEMOGLOBIN 8.1 g/dL (11.7-17.4); ARTERIAL BLOOD GAS O2 SAT 96.8 % (95-98); ARTERIAL BLOOD GAS PCO2 40 mm/Hg (35-45); ARTERIAL BLOOD GAS PH 7.34 (7.35-7.45); ARTERIAL BLOOD GAS PO2 121 mm/Hg (80-100); ARTERIAL BLOOD GAS TCO2 22.8 mmol/L (22-28)
[2018-05-18 06:39] LABS: ALBUMIN 2.4 g/dL (3.5-5.0); CALCIUM 7.8 mg/dl (8.6-10.4)
[2018-05-18] MEDS: (Novolog) Insulin Aspart, Recombinant 100 u/ml 10 ml vial SC SCH ×3 (06:49→18:50)
--- NOTE | 2018-05-18 07:35 | CP.CCUPN ---
CCU Subjective - Physician Review Subjective (Free Text): ICU Progress Note for Dr. Wright Pt seen and examined at bedside. Currently intubated, receiving HD this am at bedside. Unable to obtain HPI or ROS due to pt's current clinical status. No acute events reported overnight by staff. CCU Objective - Vital Signs / Intake & Output Vital Signs (Last 4 hours): Vital Signs Temp Pulse Resp BP Pulse Ox 05/18/18 06:32 113/54 L 05/18/18 06:11 60 17 108/40 L 97 05/18/18 05:31 62 18 113/48 L 99 05/18/18 05:01 63 18 117/48 L 99 05/18/18 05:00 64 18 99 05/18/18 04:31 62 18 118/50 L 99 05/18/18 04:01 64 16 125/52 L 97 05/18/18 04:00 98.5 F 65 18 97 Intake and Output (Last 8hrs): Intake & Output 05/17/18 05/18/18 05/18/18 22:59 06:59 14:59 Intake Total 471.9 356.1 Output Total 82 225 Balance 389.9 131.1 Weight 144 lb 9.972 oz 161 lb 2.526 oz Intake: IV 122 153 Intake, IV Amount 229.9 203.1 Left Forearm 50 50 Right Forearm 25 Right Internal Jugular 18.9 17.1 Trialysis Catheter right ac y port 136 136 Tube Feeding 120 0 Output: Gastric Amount 50 200 Nares 50 Stomach 200 Urine 32 25 Urethral ([place]) 32 25 Other: # Bowel Movements 0 0 - Physical Exam Head: Positive for: Atraumatic, Normocephalic Pupils: Positive for: PERRL Extroacular Muscles: Positive for: EOMI Conjunctiva: Positive for: Normal Ears: Positive for: Normal Mouth: Positive for: Moist Mucous Membranes Nose (External): Positive for: Atraumatic Respiratory/Chest: Positive for: Clear to Auscultation Cardiovascular: Positive for: Regular Rate and Rhythm Abdomen: Positive for: Normal Bowel Sounds. Negative for: Tenderness, Distention Upper Extremity: Positive for: Edema Lower Extremity: Positive for: Edema, Other (skin blisters noted on L anterior calf) Neurological: Positive for: Other (intubated) Psychiatric: Positive for: Other (intubated). Negative for: Alert, Oriented x 3 - Medications Active Medications: Active Medications Generic Name Dose Route Start Last Admin Trade Name Freq PRN Reason Stop Dose Admin Acetaminophen 650 mg 05/18/18 00:30 05/18/18 00:46 Tylenol 650mg/20.3ml Solution Ud PO 650 mg Q6 PRN Administration Fever >100.4 F or Pain Dextrose 0 ml 05/16/18 18:32 Dextrose 50% Inj IV STAT PRN Hypoglycemia Protocol Protocol Dextrose 0 gm 05/16/18 18:32 Glutose 15 PO ONCE PRN Hypoglycemia Protocol Protocol Glucagon 0 mg 05/16/18 18:32 Glucagen Diagnostic Kit IM STAT PRN Hypoglycemia Protocol Protocol Heparin Sodium (Porcine) 5,000 units 05/16/18 17:45 05/18/18 05:15 Heparin SC 5,000 units Q12H LAURENCE Administration Vancomycin/Sodium Chloride 1 gm in 200 mls @ 133 mls/hr 05/16/18 10:00 0 05/17/18 10:43 Vancomycin 1 Gm/Ns 200 Ml IVPB 05/21/18 10:01 133 mls/hr Q24H LAURENCE Administration Protocol Dexmedetomidine HCl 200 mcg/ 50 mls @ 3.4 mls/hr 05/15/18 20:23 05/18/18 06:51 Sodium Chloride IV 0.99 mcg/kg/hr TITR PRN 17 mls/hr Sedation Administration Protocol 0.2 MCG/KG/HR Norepinephrine Bitartrate 8 mg 258 mls @ 7.74 mls/hr 05/16/18 11:55 05/18/18 03:31 / Sodium Chloride IV 1 mcg/min .Q24H PRN 1.94 mls/hr TITRATE PER MD ORDER Titration Protocol 4 MCG/MIN Dextrose 1,000 mls @ 0 mls/hr 05/16/18 18:32 Dextrose 5% In Water 1000 Ml IV .Q0M PRN Hypoglycemia Protocol Protocol Per Protocol Aztreonam 1 gm/ Sodium 100 mls @ 100 mls/hr 05/17/18 20:00 05/17/18 19:04 Chloride IVPB 100 mls/hr Q12H LAURENCE Administration Protocol Clindamycin Phosphate 600 mg/ 54 mls @ 100 mls/hr 05/17/18 22:00 05/18/18 05:15 Sodium Chloride IVPB 100 mls/hr Q8H LAURENCE Administration Protocol Insulin Aspart 0 unit 05/18/18 00:00 05/18/18 06:49 Novolog SC Not Given Q6 [facility] Protocol Pantoprazole Sodium 40 mg 05/17/18 10:00 05/17/18 11:20 Protonix Inj IVP 40 mg DAILY LAURENCE Administration - Patient Studies Lab Studies: Microbiology Studies 05/16/18 04:02 Urine Culture - Preliminary Urine,[place] Gram Negative Ramón 05/15/18 11:20 S.aureus & Coag-Neg Staph PNA FISH - Final Blood Blood Culture - Preliminary Group C Streptococcus Gram Stain - Final 05/15/18 11:30 Blood Culture - Preliminary Blood Group C Streptococcus Gram Stain - Final 05/16/18 04:02 MRSA Culture (Admit) - Final Naris MRSA NOT DETECTED Lab Studies 05/18/18 05/18/18 05/18/18 Range/Units 06:13 06:12 06:12 WBC 16.3 H D (4.8-10.8) K/uL RBC 2.45 L (3.80-5.20) Mil/uL Hgb 8.2 L (11.0-16.0) g/dL Hct 25.6 L (34.0-47.0) % MCV 104.5 H (81.0-99.0) fL MCH 33.5 H (27.0-31.0) pg MCHC 32.1 L (33.0-37.0) g/dL RDW 17.3 H (11.5-14.5) % Plt Count 46 L (130-400) K/uL MPV 11.7 (7.2-11.7) fL Neut % (Auto) 95.8 H (50.0-75.0) % Lymph % (Auto) 2.1 L (20.0-40.0) % King % (Auto) 1.6 (0.0-10.0) % Eos % (Auto) 0.4 (0.0-4.0) % Baso % (Auto) 0.1 (0.0-2.0) % Neut # (Auto) 15.6 H (1.8-7.0) K/uL Lymph # (Auto) 0.3 L (1.0-4.3) K/uL King # (Auto) 0.3 (0.0-0.8) K/uL Eos # (Auto) 0.1 (0.0-0.7) K/uL Baso # (Auto) 0.0 (0.0-0.2) K/uL Neutrophils % (Manual) (50-75) % Band Neutrophils % (0-2) % Lymphocytes % (Manual) (20-40) % Monocytes % (Manual) (0-10) % Eosinophils % (Manual) (0-4) % Metamyelocytes % (0-0) % Myelocytes % (0-0) % Platelet Estimate (NORMAL) Polychromasia Hypochromasia (manual) Poikilocytosis (manual Anisocytosis (manual) Macrocytosis (manual) Ovalocytes Retic Count (0.5-1.5) % Puncture Site pCO2 (35-45) mm/Hg pO2 (80-100) mm/Hg HCO3 (21-28) mmol/L ABG pH (7.35-7.45) ABG Total CO2 (22-28) mmol/L ABG O2 Saturation (95-98) % ABG Base Excess (-2.0-3.0) mmol/L ABG Hemoglobin (11.7-17.4) g/dL ABG Carboxyhemoglobin (0.5-1.5) % POC ABG HHb (Measured) (0.0-5.0) % ABG Methemoglobin (0.0-3.0) % Nicolás Test A-a O2 Difference mm/Hg Respiratory Index Hgb O2 Saturation (95.0-98.0) % Vent Mode Mechanical Rate FiO2 % Tidal Volume PEEP Sodium (132-148) mmol/L Potassium (3.6-5.2) mmol/L Chloride (98-107) mmol/L Carbon Dioxide (22-30) mmol/L Anion Gap (10-20) BUN (7-17) mg/dL Creatinine (0.7-1.2) mg/dL Est GFR ( Amer) Est GFR (Non-Af Amer) POC Glucose (mg/dL) (65-110) mg/dL Random Glucose (65-105) mg/dL Calcium (8.6-10.4) mg/dl Phosphorus 4.7 H (2.5-4.5) mg/dL Magnesium 1.8 (1.6-2.3) mg/dL Total Bilirubin (0.2-1.3) mg/dL AST (14-36) U/L ALT (9-52) U/L Alkaline Phosphatase (38-126) U/L Troponin I (0.00-0.120) ng/mL Total Protein (6.3-8.3) g/dL Albumin (3.5-5.0) g/dL Globulin (2.2-3.9) gm/dL Albumin/Globulin Ratio (1.0-2.1) Random Vancomycin 25.8 ug/mL 05/18/18 05/18/18 05/17/18 Range/Units 06:12 05:44 17:41 WBC (4.8-10.8) K/uL RBC (3.80-5.20) Mil/uL Hgb (11.0-16.0) g/dL Hct (34.0-47.0) % MCV (81.0-99.0) fL MCH (27.0-31.0) pg MCHC (33.0-37.0) g/dL RDW (11.5-14.5) % Plt Count (130-400) K/uL MPV (7.2-11.7) fL Neut % (Auto) (50.0-75.0) % Lymph % (Auto) (20.0-40.0) % King % (Auto) (0.0-10.0) % Eos % (Auto) (0.0-4.0) % Baso % (Auto) (0.0-2.0) % Neut # (Auto) (1.8-7.0) K/uL Lymph # (Auto) (1.0-4.3) K/uL King # (Auto) (0.0-0.8) K/uL Eos # (Auto) (0.0-0.7) K/uL Baso # (Auto) (0.0-0.2) K/uL Neutrophils % (Manual) (50-75) % Band Neutrophils % (0-2) % Lymphocytes % (Manual) (20-40) % Monocytes % (Manual) (0-10) % Eosinophils % (Manual) (0-4) % Metamyelocytes % (0-0) % Myelocytes % (0-0) % Platelet Estimate (NORMAL) Polychromasia Hypochromasia (manual) Poikilocytosis (manual Anisocytosis (manual) Macrocytosis (manual) Ovalocytes Retic Count (0.5-1.5) % Puncture Site L rad pCO2 40 (35-45) mm/Hg pO2 121 H (80-100) mm/Hg HCO3 21.9 (21-28) mmol/L ABG pH 7.34 L (7.35-7.45) ABG Total CO2 22.8 (22-28) mmol/L ABG O2 Saturation 96.8 (95-98) % ABG Base Excess -3.9 L (-2.0-3.0) mmol/L ABG Hemoglobin 8.1 L (11.7-17.4) g/dL ABG Carboxyhemoglobin 0.2 L (0.5-1.5) % POC ABG HHb (Measured) 3.2 (0.0-5.0) % ABG Methemoglobin 0.3 (0.0-3.0) % Nicolás Test Pos A-a O2 Difference 150.0 mm/Hg Respiratory Index 1.2 Hgb O2 Saturation 96.3 (95.0-98.0) % Vent Mode Prvc Mechanical Rate 18 FiO2 45.0 % Tidal Volume 400 PEEP 5 Sodium 139 (132-148) mmol/L Potassium 4.1 (3.6-5.2) mmol/L Chloride 106 (98-107) mmol/L Carbon Dioxide 22 (22-30) mmol/L Anion Gap 16 (10-20) BUN 53 H (7-17) mg/dL Creatinine 3.2 H (0.7-1.2) mg/dL Est GFR ( Amer) 17 Est GFR (Non-Af Amer) 14 POC Glucose (mg/dL) 111 H (65-110) mg/dL Random Glucose 98 (65-105) mg/dL Calcium 7.8 L (8.6-10.4) mg/dl Phosphorus (2.5-4.5) mg/dL Magnesium (1.6-2.3) mg/dL Total Bilirubin 1.6 H (0.2-1.3) mg/dL AST 39 H D (14-36) U/L ALT 24 (9-52) U/L Alkaline Phosphatase 55 (38-126) U/L Troponin I (0.00-0.120) ng/mL Total Protein 4.9 L (6.3-8.3) g/dL Albumin 2.4 L (3.5-5.0) g/dL Globulin 2.5 (2.2-3.9) gm/dL Albumin/Globulin Ratio 1.0 (1.0-2.1) Random Vancomycin ug/mL 05/17/18 05/17/18 05/16/18 Range/Units 07:56 06:09 06:30 WBC 10.1 D (4.8-10.8) K/uL RBC 2.55 L (3.80-5.20) Mil/uL Hgb 8.8 L (11.0-16.0) g/dL Hct 27.0 L (34.0-47.0) % MCV 106.0 H (81.0-99.0) fL MCH 34.4 H (27.0-31.0) pg MCHC 32.4 L (33.0-37.0) g/dL RDW 17.7 H (11.5-14.5) % Plt Count 62 L (130-400) K/uL MPV 12.1 H (7.2-11.7) fL Neut % (Auto) 93.8 H 85.0 H (50.0-75.0) % Lymph % (Auto) 2.1 L 10.0 L (20.0-40.0) % King % (Auto) 3.7 5.0 (0.0-10.0) % Eos % (Auto) 0.2 0.0 (0.0-4.0) % Baso % (Auto) 0.2 0.0 (0.0-2.0) % Neut # (Auto) 9.5 H 1.6 L (1.8-7.0) K/uL Lymph # (Auto) 0.2 L 0.2 L (1.0-4.3) K/uL King # (Auto) 0.4 0.1 (0.0-0.8) K/uL Eos # (Auto) 0.0 0.0 (0.0-0.7) K/uL Baso # (Auto) 0.0 0.0 (0.0-0.2) K/uL Neutrophils % (Manual) 50 (50-75) % Band Neutrophils % 30 H* (0-2) % Lymphocytes % (Manual) 4 L (20-40) % Monocytes % (Manual) 3 (0-10) % Eosinophils % (Manual) 9 H (0-4) % Metamyelocytes % 3 H (0-0) % Myelocytes % 1 H (0-0) % Platelet Estimate Decreased L (NORMAL) Polychromasia Slight Hypochromasia (manual) Slight Poikilocytosis (manual Slight Anisocytosis (manual) Slight Macrocytosis (manual) Moderate Ovalocytes Slight Retic Count 1.0 (0.5-1.5) % Puncture Site pCO2 (35-45) mm/Hg pO2 (80-100) mm/Hg HCO3 (21-28) mmol/L ABG pH (7.35-7.45) ABG Total CO2 (22-28) mmol/L ABG O2 Saturation (95-98) % ABG Base Excess (-2.0-3.0) mmol/L ABG Hemoglobin (11.7-17.4) g/dL ABG Carboxyhemoglobin (0.5-1.5) % POC ABG HHb (Measured) (0.0-5.0) % ABG Methemoglobin (0.0-3.0) % Nicolás Test A-a O2 Difference mm/Hg Respiratory Index Hgb O2 Saturation (95.0-98.0) % Vent Mode Mechanical Rate FiO2 % Tidal Volume PEEP Sodium (132-148) mmol/L Potassium (3.6-5.2) mmol/L Chloride (98-107) mmol/L Carbon Dioxide (22-30) mmol/L Anion Gap (10-20) BUN (7-17) mg/dL Creatinine (0.7-1.2) mg/dL Est GFR ( Amer) Est GFR (Non-Af Amer) POC Glucose (mg/dL) (65-110) mg/dL Random Glucose (65-105) mg/dL Calcium (8.6-10.4) mg/dl Phosphorus (2.5-4.5) mg/dL Magnesium (1.6-2.3) mg/dL Total Bilirubin (0.2-1.3) mg/dL AST (14-36) U/L ALT (9-52) U/L Alkaline Phosphatase (38-126) U/L Troponin I 1.2800 H* (0.00-0.120) ng/mL Total Protein (6.3-8.3) g/dL Albumin (3.5-5.0) g/dL Globulin (2.2-3.9) gm/dL Albumin/Globulin Ratio (1.0-2.1) Random Vancomycin ug/mL Laboratory Results - last 24 hr 05/16/18 05/17/18 05/17/18 06:30 06:09 07:56 WBC 10.1 D RBC 2.55 L Hgb 8.8 L Hct 27.0 L MCV 106.0 H MCH 34.4 H MCHC 32.4 L RDW 17.7 H Plt Count 62 L MPV 12.1 H Neut % (Auto) 85.0 H 93.8 H Lymph % (Auto) 10.0 L 2.1 L King % (Auto) 5.0 3.7 Eos % (Auto) 0.0 0.2 Baso % (Auto) 0.0 0.2 Neut # (Auto) 1.6 L 9.5 H Lymph # (Auto) 0.2 L 0.2 L King # (Auto) 0.1 0.4 Eos # (Auto) 0.0 0.0 Baso # (Auto) 0.0 0.0 Neutrophils % (Manual) 50 Band Neutrophils % 30 H* Lymphocytes % (Manual) 4 L Monocytes % (Manual) 3 Eosinophils % (Manual) 9 H Metamyelocytes % 3 H Myelocytes % 1 H Platelet Estimate Decreased L Polychromasia Slight Hypochromasia (manual) Slight Poikilocytosis (manual Slight Anisocytosis (manual) Slight Macrocytosis (manual) Moderate Ovalocytes Slight Retic Count 1.0 Puncture Site pCO2 pO2 HCO3 ABG pH ABG Total CO2 ABG O2 Saturation ABG Base Excess ABG Hemoglobin ABG Carboxyhemoglobin POC ABG HHb (Measured) ABG Methemoglobin Nicolás Test A-a O2 Difference Respiratory Index Hgb O2 Saturation Vent Mode Mechanical Rate FiO2 Tidal Volume PEEP Sodium Potassium Chloride Carbon Dioxide Anion Gap BUN Creatinine Est GFR ( Amer) Est GFR (Non-Af Amer) POC Glucose (mg/dL) Random Glucose Calcium Phosphorus Magnesium Total Bilirubin AST ALT Alkaline Phosphatase Troponin I 1.2800 H* Total Protein Albumin Globulin Albumin/Globulin Ratio Random Vancomycin 05/17/18 05/18/18 05/18/18 17:41 05:44 06:12 WBC RBC Hgb Hct MCV MCH MCHC RDW Plt Count MPV Neut % (Auto) Lymph % (Auto) King % (Auto) Eos % (Auto) Baso % (Auto) Neut # (Auto) Lymph # (Auto) King # (Auto) Eos # (Auto) Baso # (Auto) Neutrophils % (Manual) Band Neutrophils % Lymphocytes % (Manual) Monocytes % (Manual) Eosinophils % (Manual) Metamyelocytes % Myelocytes % Platelet Estimate Polychromasia Hypochromasia (manual) Poikilocytosis (manual Anisocytosis (manual) Macrocytosis (manual) Ovalocytes Retic Count Puncture Site L rad pCO2 40 pO2 121 H HCO3 21.9 ABG pH 7.34 L ABG Total CO2 22.8 ABG O2 Saturation 96.8 ABG Base Excess -3.9 L ABG Hemoglobin 8.1 L ABG Carboxyhemoglobin 0.2 L POC ABG HHb (Measured) 3.2 ABG Methemoglobin 0.3 Nicolás Test Pos A-a O2 Difference 150.0 Respiratory Index 1.2 Hgb O2 Saturation 96.3 Vent Mode Prvc Mechanical Rate 18 FiO2 45.0 Tidal Volume 400 PEEP 5 Sodium 139 Potassium 4.1 Chloride 106 Carbon Dioxide 22 Anion Gap 16 BUN 53 H Creatinine 3.2 H Est GFR ( Amer) 17 Est GFR (Non-Af Amer) 14 POC Glucose (mg/dL) 111 H Random Glucose 98 Calcium 7.8 L Phosphorus Magnesium Total Bilirubin 1.6 H AST 39 H D ALT 24 Alkaline Phosphatase 55 Troponin I Total Protein 4.9 L Albumin 2.4 L Globulin 2.5 Albumin/Globulin Ratio 1.0 Random Vancomycin 05/18/18 05/18/18 05/18/18 06:12 06:12 06:13 WBC 16.3 H D RBC 2.45 L Hgb 8.2 L Hct 25.6 L MCV 104.5 H MCH 33.5 H MCHC 32.1 L RDW 17.3 H Plt Count 46 L MPV 11.7 Neut % (Auto) 95.8 H Lymph % (Auto) 2.1 L King % (Auto) 1.6 Eos % (Auto) 0.4 Baso % (Auto) 0.1 Neut # (Auto) 15.6 H Lymph # (Auto) 0.3 L King # (Auto) 0.3 Eos # (Auto) 0.1 Baso # (Auto) 0.0 Neutrophils % (Manual) Band Neutrophils % Lymphocytes % (Manual) Monocytes % (Manual) Eosinophils % (Manual) Metamyelocytes % Myelocytes % Platelet Estimate Polychromasia Hypochromasia (manual) Poikilocytosis (manual Anisocytosis (manual) Macrocytosis (manual) Ovalocytes Retic Count Puncture Site pCO2 pO2 HCO3 ABG pH ABG Total CO2 ABG O2 Saturation ABG Base Excess ABG Hemoglobin ABG Carboxyhemoglobin POC ABG HHb (Measured) ABG Methemoglobin Nicolás Test A-a O2 Difference Respiratory Index Hgb O2 Saturation Vent Mode Mechanical Rate FiO2 Tidal Volume PEEP Sodium Potassium Chloride Carbon Dioxide Anion Gap BUN Creatinine Est GFR ( Amer) Est GFR (Non-Af Amer) POC Glucose (mg/dL) Random Glucose Calcium Phosphorus 4.7 H Magnesium 1.8 Total Bilirubin AST ALT Alkaline Phosphatase Troponin I Total Protein Albumin Globulin Albumin/Globulin Ratio Random Vancomycin 25.8 Radiology Impressions: Radiology Impressions Chest X-Ray 05/17/18 19:55 IMPRESSION: Interval slight improvement in the pulmonary vascular congestion. Otherwise no significant interval changes. Fingerstick Blood Sugar Results: 108 Review of Systems - Review of Systems Systems not reviewed;Unavailable: Intubated Assessment/Plan - Assessment and Plan (Free Text) Assessment: 72 y o female with PMhx CHF, CAD, HTN, HLD, hx thyroid disease and renal disease, who presented to the ED with c/o LLE swelling and pain x 1 day induration, was also having fever. Code Sepsis called in ED. Pt was admitted to medical floor. Pt had repeated episodes of tachycardia and hypotension, leading to PRICE LISTER on 05/15 in which pt became more lethargic-appearing on exam after vomiting episode, s/p intubation by anesthesia, pt was transferred to ICU for further monitoring. Acute respiratory failure likely 2/2 aspiration of bilious vomit. Intubated on vent, plan for weaning protocol and CPAP trials after pt finishes HD today. Was placed on Levophed drip for septic shock with Group C strep bacteremia from LLE cellulitis and urine cx pos for E. coli, tapered down. Presented with oliguria, acute tubular necrosis, started on HD 05/17/18, 2nd treatment of HD to be given today. Plan: Neuro: -Currently intubated -No gross deficits on exam, cont to monitor Cardio: -Hx CABG, HTN, CHF, HLD -Dr. Ramires consulted, recs appreciated -Echo 05/15: LV function severely reduced, diffuse hypokinesis. EF 20%. Septum dyskinetic and demonstrates flattening, elevated RV pressure. R ventricle, L and R atria dilated. Severe pulmonary HTN. -Pressor therapy tapered down -Hemodymanically stable, cont to monitor Pulm: -Intubated on PRVC -Weaning protocol and CPAP trials as tolerated -Maintain O2 sat > 92% -Bronchodilators -Acute respiratory failure likely 2/2 aspiration of bilious vomit -Vanco/Azactam/Clindamycin -Leukocytosis trending up, bands present -Blood cxs growing Group C strep, urine cx growing E.coli GI: -NPO -Glucerna tube feeds -Protonix Heme: -Pancytopenia -Dr. Duggan consulted, recs appreciated [facility] Renal: -Oliguria, ATN -Dr. Pereira consulted, recs appreciated -To receive 2nd treatment of HD today, cont to monitor ID: -Tx possible aspiration PNA and UTI as noted above -ID consulted, Dr. Guevara, recs appreciated Endo: -Hx DM2 -Fingersticks q6h -ISS -Hypoglycemic protocol PPX: -Protonix, Heparin Pt seen, examined with, and plan discussed with Dr. Wright, attending physician. Kei Burns, DO PGY-1, Printer Operator Pager #[phone]
[2018-05-18 08:03] LABS: HIV 1&2 ANTIBODY NEGATIVE (NEGATIVE)
[2018-05-18 08:27] LABS: HEPATITIS C ANTIBODY NEGATIVE (NEGATIVE)
[2018-05-18 08:42] LABS: HEPATITIS B SURFACE AG Negative (NEGATIVE)
[2018-05-18 08:48] LABS: HEPATITIS A IGM NEGATIVE (NEGATIVE); HEPATITIS B CORE AB NEGATIVE (NEGATIVE)
[2018-05-18] MEDS: Aztreonam 1 GM in Sodium Chloride 0.9% 100 ML IVPB SCH ×2 (08:49→20:24)
[2018-05-18 08:59] LABS: BANDS 27 % (0-2); LYMPHOCYTE 6 % (20-40); MONOCYTE 13 % (0-10); NEUTROPHIL 54 % (50-75); TOTAL CELLS COUNTED 100
[2018-05-18 09:00] LABS: ANISOCYTOSIS SLIGHT; PLATELET ESTIMATE DECREASED (NORMAL)
[2018-05-18 09:03] LABS: HYPOCHROMIC SLIGHT
[2018-05-18 09:04] LABS: OVALOCYTES SLIGHT; POLYCHROMIC SLIGHT
--- NOTE | 2018-05-18 09:08 | VASCLAB ---
Date of service: 05/15/2018 PROCEDURE: Left Lower Extremity Venous Duplex Exam. HISTORY: left leg pain edema PRIORS: None. TECHNIQUE: Left common femoral, femoral, popliteal and posterior tibial, peroneal and great saphenous veins were evaluated. Flow was assessed with color Doppler, compressibility, assessment of phasic flow and augmentation response. Report prepared by NATI Barragan, RVT FINDINGS: LEFT: 1. Common Femoral Vein: 1.1. Compressibility - Fully compressible: Thrombus - None : Flow - Phasic: Augmentation -Normal: Reflux - None. 2. Femoral Vein: 2.1. Compressibility - Fully compressible: Thrombus - None: Flow - Phasic: Augmentation -Normal: Reflux - None. 3. Popliteal Vein: 3.1. Compressibility - Fully compressible: Thrombus - None: Flow - Phasic: Augmentation -Normal: Reflux - None. 4. Posterior Tibial Vein: 4.1. Compressibility - : Thrombus - : Flow - : Augmentation -: Reflux - . 5. Peroneal Vein: 5.1. Compressibility - : Thrombus - : Flow - : Augmentation -: Reflux - . 6. Great Saphenous Vein: 6.1. Compressibility - : Thrombus - : Flow - : Augmentation - : Reflux - . OTHER FINDINGS: Technically limited study due to severe swelling. Absent flow noted in the left distal posterior tibial artery. Arterial flow noted in the left distal anterior tibial and dorsalis pedis artery. IMPRESSION: No evidence of deep or superficial vein thrombosis of the left lower extremity with excellent venous flow. Normal valve function noted of the left side. Normal venous flow noted in the right common femoral vein.
--- NOTE | 2018-05-18 09:25 | RAD ---
Date of service: 05/18/2018 HISTORY: intubated COMPARISON: 05/17/2018 FINDINGS: LUNGS: Lines and tubes in stable position. Persistent venous congestion. Persistent patchy increased markings in the left mid to lower lung zone. PLEURA: No significant pleural effusion identified, no pneumothorax apparent. CARDIOVASCULAR: Aortic atherosclerotic calcification present. Cardiomegaly. Enlarged ectatic aorta. OSSEOUS STRUCTURES: No significant abnormalities. VISUALIZED UPPER ABDOMEN: Normal. OTHER FINDINGS: None. IMPRESSION: No significant interval change.
[2018-05-18] MEDS ORDERED: Epoetin Alfa 4000 UNIT/ML Inj SC SCH (10:50)
--- NOTE | 2018-05-18 11:59 | CP.PCM.PN ---
Subjective - Date & Time of Evaluation Date of Evaluation: 05/18/18 Time of Evaluation: 11:51 - Subjective Subjective: Nephrology Follow up Note HPI: 72-year-old female with a history of CHF, CAD, hypertension, hyperlipidemia, history of thyroid disease and renal disease, patient admitted to the hospital with a complaining of left lower extremity pain swelling of one day duration along with fever, followed by code sepsis, hypotension leading to resp distress and current intubation. Hx is obtained from charts. currrently intubated on pressors unknown baseline kidney disease, cr is now 3.1 UOP 10-15 cc per hour. on iv fluids and pressors Past medical history: Had a history of congestive heart failure, coronary artery disease, diabetes, hypertension, hypothyroidism, renal insufficiency. Patient has allergic to penicillin Surgical history include coronary artery bypass grafting x2 Social history: No smoking or drinking history noted Family history significant for diabetes and heart disease Medications at this time not available. work up: BiV failure with LVEF 20% and severe pulmonary HTN imaging: adrenal hyperplasia, smaller kidneys, anasarca, hepatomegaly blood and urine Cx+ TSAT 5% Ferritin 73 Vit D <12.8 Hep B/C/HIV neg Review of system: unable to obtain On examination:seen during HD Patient is currently intubated. On ventilator. FiO2 40% PEEP 5 Chest bilateral air entry but with basal rales + Heart sounds are regular Abdomen soft nontender. edema ++ awake but bit agitated Left lower extremity erythema, blisters, and swelling noted Assesment: critical oligoanuric ARRON likely ATN/septic shock with cellulitis and ? UTI/acute resp failure, started HD 05/16/18 BiV failure with LVEF 20% and severe pulmonary HTN with fluid overload adrenal hyperplasia, anasarca, hepatomegaly anemia vit D def, thrombocytopenia lactic acidosis Plan HD 2nd session today maintain hemodynamics stable. Avoid hypotension. Patient not on ACEI/ARB due to recent ARRON Monitor Input/Output, daily weights and renal function with basic metabolic panel anemia management per primary team. will add Iron, MVI. PRBC as needed. epogen ordered supplement Vit D dose vanco by level. Dose meds/antibiotics for reduced GFR. Avoid fleets enema/magnesium based laxatives. Avoid nephrotoxins/NSAIDs/ iodinated contrast (unless needed emergently) Glycemic control Further work up/management as per primary team Thanks for allowing me to participate in care of your patient. Will follow patient with you. Please call if any Qs. had d/w team Dr Edin Castro Office: [phone] Objective - Vital Signs/Intake and Output Vital Signs (last 24 hours): Temp Pulse Resp BP Pulse Ox 98.3 F 67 15 94/49 L 99 05/18/18 09:30 05/18/18 09:30 05/18/18 09:30 05/18/18 11:30 05/18/18 09:30 Intake and Output: 05/18/18 05/18/18 06:59 18:59 Intake Total 612.4 18.9 Output Total 295 55 Balance 317.4 -36.1 - Medications Medications: Current Medications Acetaminophen (Tylenol 650mg/20.3ml Solution Ud) 650 mg PO Q6 PRN PRN Reason: Fever >100.4 F or Pain Last Admin: 05/18/18 00:46 Dose: 650 mg Dextrose (Dextrose 50% Inj) 0 ml IV STAT PRN; Protocol PRN Reason: Hypoglycemia Protocol Dextrose (Glutose 15) 0 gm PO ONCE PRN; Protocol PRN Reason: Hypoglycemia Protocol Epoetin Anthony (Procrit) 8,000 unit SC MWF [facility] Ergocalciferol (Drisdol 50,000 Intl Units Cap) 1 cap PO Q7D [facility] Ferrous Gluconate (Fergon) 324 mg PO TID [facility] Glucagon (Glucagen Diagnostic Kit) 0 mg IM STAT PRN; Protocol PRN Reason: Hypoglycemia Protocol Heparin Sodium (Porcine) (Heparin) 5,000 units SC Q12H [facility] Last Admin: 05/18/18 05:15 Dose: 5,000 units Vancomycin/Sodium Chloride (Vancomycin 1 Gm/Ns 200 Ml) 1 gm in 200 mls @ 133 mls/hr IVPB Q24H [facility]; Protocol Stop: 05/21/18 10:01 Last Admin: 05/17/18 10:43 Dose: 133 mls/hr Dexmedetomidine HCl 200 mcg/ (Sodium Chloride) 50 mls @ 3.4 mls/hr IV TITR PRN; Protocol PRN Reason: Sedation Last Admin: 05/18/18 06:51 Dose: 0.99 mcg/kg/hr, 17 mls/hr Norepinephrine Bitartrate 8 mg (/ Sodium Chloride) 258 mls @ 7.74 mls/hr IV .Q24H PRN; Protocol PRN Reason: TITRATE PER MD ORDER Last Titration: 05/18/18 03:31 Dose: 1 mcg/min, 1.94 mls/hr Dextrose (Dextrose 5% In Water 1000 Ml) 1,000 mls @ 0 mls/hr IV .Q0M PRN; Protocol PRN Reason: Hypoglycemia Protocol Aztreonam 1 gm/ Sodium (Chloride) 100 mls @ 100 mls/hr IVPB Q12H [facility]; Protocol Last Admin: 05/18/18 08:49 Dose: 100 mls/hr Clindamycin Phosphate 600 mg/ (Sodium Chloride) 54 mls @ 100 mls/hr IVPB Q8H [facility]; Protocol Last Admin: 05/18/18 05:15 Dose: 100 mls/hr Insulin Aspart (Novolog) 0 unit SC Q6 [facility]; Protocol Last Admin: 05/18/18 06:49 Dose: Not Given Pantoprazole Sodium (Protonix Inj) 40 mg IVP DAILY [facility] Last Admin: 05/17/18 11:20 Dose: 40 mg Vitamin B Complex/Vit C/Folic Acid (Nephro-Pancho) 1 tab PO 0800 [facility] - Labs Labs: 05/18/18 06:13 05/18/18 06:12 PT 19.8 SECONDS (9.7-12.2) H 05/17/18 06:09 INR 1.8 05/17/18 06:09 APTT 40 SECONDS (21-34) H D 05/17/18 06:09
--- NOTE | 2018-05-18 12:09 | CP.PCM.PN ---
Subjective - Date & Time of Evaluation Date of Evaluation: 05/18/18 Time of Evaluation: 08:00 - Subjective Subjective: + blood cultures large infected bullous lesion left leg may need surgical eval HD in progress Objective - Vital Signs/Intake and Output Vital Signs (last 24 hours): Temp Pulse Resp BP Pulse Ox 97.3 F L 75 13 114/44 L 100 05/18/18 12:00 05/18/18 12:00 05/18/18 12:00 05/18/18 12:00 05/18/18 11:16 Intake and Output: 05/18/18 05/18/18 06:59 18:59 Intake Total 612.4 164.2 Output Total 295 55 Balance 317.4 109.2 - Medications Medications: Current Medications Acetaminophen (Tylenol 650mg/20.3ml Solution Ud) 650 mg PO Q6 PRN PRN Reason: Fever >100.4 F or Pain Last Admin: 05/18/18 00:46 Dose: 650 mg Dextrose (Dextrose 50% Inj) 0 ml IV STAT PRN; Protocol PRN Reason: Hypoglycemia Protocol Dextrose (Glutose 15) 0 gm PO ONCE PRN; Protocol PRN Reason: Hypoglycemia Protocol Epoetin Anthony (Procrit) 8,000 unit SC MWF [facility] Ergocalciferol (Drisdol 50,000 Intl Units Cap) 1 cap PO Q7D [facility] Ferrous Gluconate (Fergon) 324 mg PO TID [facility] Glucagon (Glucagen Diagnostic Kit) 0 mg IM STAT PRN; Protocol PRN Reason: Hypoglycemia Protocol Heparin Sodium (Porcine) (Heparin) 5,000 units SC Q12H [facility] Last Admin: 05/18/18 05:15 Dose: 5,000 units Vancomycin/Sodium Chloride (Vancomycin 1 Gm/Ns 200 Ml) 1 gm in 200 mls @ 133 mls/hr IVPB Q24H [facility]; Protocol Stop: 05/21/18 10:01 Last Admin: 05/17/18 10:43 Dose: 133 mls/hr Dexmedetomidine HCl 200 mcg/ (Sodium Chloride) 50 mls @ 3.4 mls/hr IV TITR PRN; Protocol PRN Reason: Sedation Last Admin: 05/18/18 06:51 Dose: 0.99 mcg/kg/hr, 17 mls/hr Norepinephrine Bitartrate 8 mg (/ Sodium Chloride) 258 mls @ 7.74 mls/hr IV .Q24H PRN; Protocol PRN Reason: TITRATE PER MD ORDER Last Titration: 05/18/18 03:31 Dose: 1 mcg/min, 1.94 mls/hr Dextrose (Dextrose 5% In Water 1000 Ml) 1,000 mls @ 0 mls/hr IV .Q0M PRN; P rotocol PRN Reason: Hypoglycemia Protocol Aztreonam 1 gm/ Sodium (Chloride) 100 mls @ 100 mls/hr IVPB Q12H [facility]; Protocol Last Admin: 05/18/18 08:49 Dose: 100 mls/hr Clindamycin Phosphate 600 mg/ (Sodium Chloride) 54 mls @ 100 mls/hr IVPB Q8H [facility]; Protocol Last Admin: 05/18/18 05:15 Dose: 100 mls/hr Insulin Aspart (Novolog) 0 unit SC Q6 [facility]; Protocol Last Admin: 05/18/18 06:49 Dose: Not Given Pantoprazole Sodium (Protonix Inj) 40 mg IVP DAILY [facility] Last Admin: 05/17/18 11:20 Dose: 40 mg Vitamin B Complex/Vit C/Folic Acid (Nephro-Pancho) 1 tab PO 0800 [facility] - Labs Labs: 05/18/18 06:13 05/18/18 06:12 PT 19.8 SECONDS (9.7-12.2) H 05/17/18 06:09 INR 1.8 05/17/18 06:09 APTT 40 SECONDS (21-34) H D 05/17/18 06:09 - Constitutional Appears: Confused, Cachectic, Chronically Ill - Head Exam Head Exam: NORMOCEPHALIC - Eye Exam Eye Exam: absent: Scleral icterus Pupil Exam: NORMAL ACCOMODATION - ENT Exam ENT Exam: Mucous Membranes Dry, Normal External Ear Exam - Neck Exam Neck Exam: absent: Lymphadenopathy - Respiratory Exam Respiratory Exam: Decreased Breath Sounds - Cardiovascular Exam Cardiovascular Exam: REGULAR RHYTHM, +S2 - GI/Abdominal Exam GI & Abdominal Exam: Distended, Soft - Rectal Exam Rectal Exam: Deferred - Exam Exam: NORMAL INSPECTION - Extremities Exam Extremities Exam: Pedal Edema, Tenderness. absent: Normal Capillary Refill Additional comments: bullous lesions left leg - Back Exam Back Exam: absent: CVA tenderness (L), CVA tenderness (R) - Neurological Exam Neurological Exam: Alert Assessment and Plan (1) Multi-organ system dysfunction Status: Acute (2) Septic shock Status: Acute (3) Cellulitis of left lower extremity Status: Acute (4) Coagulopathy Status: Acute (5) Pancytopenia Status: Acute (6) Sepsis Status: Acute (7) Respiratory failure requiring intubation Status: Acute (8) Respiratory failure with hypoxia and hypercapnia Status: Acute (9) ARRON (acute kidney injury) Status: Acute - Assessment and Plan (Free Text) Assessment: sepsis/ septic shock multiorgan system failure cellulitis left leg- consider vascular eval Plan: cont IV antibiotics
--- NOTE | 2018-05-18 12:19 | CP.PCM.PN ---
Subjective - Date & Time of Evaluation Date of Evaluation: 05/18/18 Time of Evaluation: 12:00 - Subjective Subjective: Had hemodialysis, still on pressors, blood culture positive and seen by infectious disease. Observe with advanced sepsis Objective - Vital Signs/Intake and Output Vital Signs (last 24 hours): Temp Pulse Resp BP Pulse Ox 97.3 F L 74 10 L 114/44 L 100 05/18/18 12:00 05/18/18 12:05/18/18 12:05/18/18 12:05/18/18 11:16 Intake and Output: 05/18/18 05/18/18 06:59 18:59 Intake Total 612.4 169.8 Output Total 295 55 Balance 317.4 114.8 - Medications Medications: Current Medications Acetaminophen (Tylenol 650mg/20.3ml Solution Ud) 650 mg PO Q6 PRN PRN Reason: Fever >100.4 F or Pain Last Admin: 05/18/18 00:46 Dose: 650 mg Dextrose (Dextrose 50% Inj) 0 ml IV STAT PRN; Protocol PRN Reason: Hypoglycemia Protocol Dextrose (Glutose 15) 0 gm PO ONCE PRN; Protocol PRN Reason: Hypoglycemia Protocol Epoetin Anthony (Procrit) 8,000 unit SC MWF [facility] Ergocalciferol (Drisdol 50,000 Intl Units Cap) 1 cap PO Q7D [facility] Ferrous Gluconate (Fergon) 324 mg PO TID [facility] Glucagon (Glucagen Diagnostic Kit) 0 mg IM STAT PRN; Protocol PRN Reason: Hypoglycemia Protocol Heparin Sodium (Porcine) (Heparin) 5,000 units SC Q12H [facility] Last Admin: 05/18/18 05:15 Dose: 5,000 units Vancomycin/Sodium Chloride (Vancomycin 1 Gm/Ns 200 Ml) 1 gm in 200 mls @ 133 mls/hr IVPB Q24H [facility]; Protocol Stop: 05/21/18 10:01 Last Admin: 05/17/18 10:43 Dose: 133 mls/hr Dexmedetomidine HCl 200 mcg/ (Sodium Chloride) 50 mls @ 3.4 mls/hr IV TITR PRN; Protocol PRN Reason: Sedation Last Admin: 05/18/18 06:51 Dose: 0.99 mcg/kg/hr, 17 mls/hr Norepinephrine Bitartrate 8 mg (/ Sodium Chloride) 258 mls @ 7.74 mls/hr IV .Q24H PRN; Protocol PRN Reason: TITRATE PER MD ORDER Last Titration: 05/18/18 03:31 Dose: 1 mcg/min, 1.94 mls/hr Dextrose (Dextrose 5% In Water 1000 Ml) 1,000 mls @ 0 mls/hr IV .Q0M PRN; Protocol PRN Reason: Hypoglycemia Protocol Aztreonam 1 gm/ Sodium (Chloride) 100 mls @ 100 mls/hr IVPB Q12H [facility]; Protocol Last Admin: 05/18/18 08:49 Dose: 100 mls/hr Clindamycin Phosphate 600 mg/ (Sodium Chloride) 54 mls @ 100 mls/hr IVPB Q8H [facility]; Protocol Last Admin: 05/18/18 05:15 Dose: 100 mls/hr Insulin Aspart (Novolog) 0 unit SC Q6 [facility]; Protocol Last Admin: 05/18/18 06:49 Dose: Not Given Pantoprazole Sodium (Protonix Inj) 40 mg IVP DAILY [facility] Last Admin: 05/17/18 11:20 Dose: 40 mg Vitamin B Complex/Vit C/Folic Acid (Nephro-Pancho) 1 tab PO 0800 [facility] - Labs Labs: 05/18/18 06:13 05/18/18 06:12 PT 19.8 SECONDS (9.7-12.2) H 05/17/18 06:09 INR 1.8 05/17/18 06:09 APTT 40 SECONDS (21-34) H D 05/17/18 06:09 - Constitutional Appears: Non-toxic - Head Exam Head Exam: ATRAUMATIC - Eye Exam Eye Exam: PERRL - ENT Exam ENT Exam: Mucous Membranes Moist - Neck Exam Neck Exam: absent: Lymphadenopathy, Thyromegaly - Respiratory Exam Respiratory Exam: Prolonged Expiratory Phase, Rhonchi - Cardiovascular Exam Cardiovascular Exam: REGULAR RHYTHM, Murmur - GI/Abdominal Exam GI & Abdominal Exam: Soft, Normal Bowel Sounds - Rectal Exam Rectal Exam: Deferred - Extremities Exam Extremities Exam: Normal Capillary Refill. absent: Calf Tenderness - Neurological Exam Additional comments: intubated and sedated - Skin Skin Exam: Dry Assessment and Plan (1) Sepsis Status: Acute (2) Multi-organ system dysfunction Status: Acute (3) Respiratory failure requiring intubation Status: Acute
[2018-05-18] MEDS: Vancomycin 1 gm/NS 200 ml 1 GM/200 ML BAG IVPB SCH (12:38)
[2018-05-18] MEDS: Ergocalciferol 50,000 Intl Units Cap PO SCH (13:24)
[2018-05-18] MEDS: EPOETIN ALFA 10,000 UNIT/ML ML SC SCH (13:52)
--- NOTE | 2018-05-18 14:56 | CARD ---
APPROVED REPORT Date of service: 05/15/2018 EKG Measurement Heart [id number] <Conclusion> Normal sinus rhythm Right bundle branch block Abnormal ECG
[2018-05-18] MEDS ORDERED: Dextrose 50% SYRINGE Inj (50 ml) ONE (18:21)
--- NOTE | 2018-05-18 22:37 | CP.PCM.PN ---
Subjective - Date & Time of Evaluation Date of Evaluation: 05/18/18 Time of Evaluation: 18:00 - Subjective Subjective: Vented Objective - Vital Signs/Intake and Output Vital Signs (last 24 hours): Temp Pulse Resp BP Pulse Ox 99.5 F 87 13 115/46 L 100 05/18/18 20:00 05/18/18 21:00 05/18/18 21:00 05/18/18 20:58 05/18/18 21:00 Intake and Output: 05/18/18 05/19/18 18:59 06:59 Intake Total 510.2 112.7 Output Total 68 0 Balance 442.2 112.7 - Medications Medications: Current Medications Acetaminophen (Tylenol 650mg/20.3ml Solution Ud) 650 mg PO Q6 PRN PRN Reason: Fever >100.4 F or Pain Last Admin: 05/18/18 00:46 Dose: 650 mg Dextrose (Dextrose 50% Inj) 0 ml IV STAT PRN; Protocol PRN Reason: Hypoglycemia Protocol Last Admin: 05/18/18 18:17 Dose: 50 ml Dextrose (Glutose 15) 0 gm PO ONCE PRN; Protocol PRN Reason: Hypoglycemia Protocol Epoetin Anthony (Procrit) 8,000 unit SC MWF [facility] Last Admin: 05/18/18 13:52 Dose: 8,000 unit Ergocalciferol (Drisdol 50,000 Intl Units Cap) 1 cap PO Q7D [facility] Last Admin: 05/18/18 13:24 Dose: 1 cap Ferrous Gluconate (Fergon) 324 mg PO TID [facility] Last Admin: 05/18/18 19:48 Dose: 324 mg Glucagon (Glucagen Diagnostic Kit) 0 mg IM STAT PRN; Protocol PRN Reason: Hypoglycemia Protocol Heparin Sodium (Porcine) (Heparin) 5,000 units SC Q12H [facility] Last Admin: 05/18/18 18:18 Dose: 5,000 units Vancomycin/Sodium Chloride (Vancomycin 1 Gm/Ns 200 Ml) 1 gm in 200 mls @ 133 mls/hr IVPB Q24H [facility]; Protocol Stop: 05/21/18 10:01 Last Admin: 05/18/18 12:38 Dose: 133 mls/hr Dexmedetomidine HCl 200 mcg/ (Sodium Chloride) 50 mls @ 3.4 mls/hr IV TITR PRN; Protocol PRN Reason: Sedation Last Admin: 05/18/18 22:23 Dose: 0.5 mcg/kg/hr, 8.5 mls/hr Norepinephrine Bitartrate 8 mg (/ Sodium Chloride) 258 mls @ 7.74 mls/hr IV .Q24H PRN; Protocol PRN Reason: TITRATE PER MD ORDER Last Admin: 05/18/18 19:48 Dose: 1 mcg/min, 1.94 mls/hr Dextrose (Dextrose 5% In Water 1000 Ml) 1,000 mls @ 0 mls/hr IV .Q0M PRN; Protocol PRN Reason: Hypoglycemia Protocol Aztreonam 1 gm/ Sodium (Chloride) 100 mls @ 100 mls/hr IVPB Q12H [facility]; Protocol Last Admin: 05/18/18 20:24 Dose: 100 mls/hr Clindamycin Phosphate 600 mg/ (Sodium Chloride) 54 mls @ 100 mls/hr IVPB Q8H [facility]; Protocol Last Admin: 05/18/18 21:04 Dose: 100 mls/hr Insulin Aspart (Novolog) 0 unit SC Q6 [facility]; Protocol Last Admin: 05/18/18 18:50 Dose: Not Given Pantoprazole Sodium (Protonix Inj) 40 mg IVP DAILY [facility] Last Admin: 05/18/18 10:00 Dose: 40 mg Vitamin B Complex/Vit C/Folic Acid (Nephro-Pancho) 1 tab PO 0800 [facility] - Labs Labs: 05/18/18 06:13 05/18/18 06:12 PT 19.8 SECONDS (9.7-12.2) H 05/17/18 06:09 INR 1.8 05/17/18 06:09 APTT 40 SECONDS (21-34) H D 05/17/18 06:09 - Head Exam Head Exam: ATRAUMATIC - Eye Exam Eye Exam: Normal appearance - ENT Exam ENT Exam: Mucous Membranes Dry - Respiratory Exam Respiratory Exam: NORMAL BREATHING PATTERN - Cardiovascular Exam Cardiovascular Exam: +S1, +S2 - GI/Abdominal Exam GI & Abdominal Exam: Normal Bowel Sounds Assessment and Plan (1) Thrombocytopenia Assessment & Plan: sepsis cont. to monitor Status: Acute (2) Coagulopathy Assessment & Plan: sepsis nutritional repeat fibrinogen Status: Acute (3) Anemia Assessment & Plan: chronic disease and renal disease transfusion support PRN Status: Acute
[2018-05-19] MEDS: (Novolog) Insulin Aspart, Recombinant 100 u/ml 10 ml vial SC SCH ×4 (00:28→17:57)
[2018-05-19] MEDS: Dexmedetomidine Hydrochloride 200 MCG in Sodium Chloride 0.9% 48 ML IV PRN ×4 (03:36→23:03)
[2018-05-19 06:01] LABS: ABG ALLEN TEST POS; ARTERIAL BLOOD GAS HCO3 24.7 mmol/L (21-28); ARTERIAL BLOOD GAS O2 SAT 97.3 % (95-98); ARTERIAL BLOOD GAS PCO2 42 mm/Hg (35-45); ARTERIAL BLOOD GAS PH 7.38 (7.35-7.45); ARTERIAL BLOOD GAS PO2 122 mm/Hg (80-100); ARTERIAL BLOOD GAS TCO2 26.1 mmol/L (22-28)
[2018-05-19 06:08] LABS: BASO % 0.1 % (0.0-2.0); EOS # 0.1 K/uL (0.0-0.7); EOS % 0.4 % (0.0-4.0); HEMOGLOBIN 7.6 g/dL (11.0-16.0); LYMPH # 0.6 K/uL (1.0-4.3); MEAN CELL VOLUME 102.7 fL (81.0-99.0); MEAN CORPUSCULAR HEMOGLOBIN 33.2 pg (27.0-31.0); MEAN CORPUSCULAR HGB CONC 32.3 g/dL (33.0-37.0); MEAN PLATELET VOLUME 12.1 fL (7.2-11.7); MONO # 0.8 K/uL (0.0-0.8); MONO % 2.9 % (0.0-10.0); NEUT # 26.8 K/uL (1.8-7.0); NEUT % 94.6 % (50.0-75.0); NRBC % 0.2 % (0.0-2.0); PLATELET COUNT 45 K/uL (130-400); RED CELL DISTRIBUTION WIDTH 16.7 % (11.5-14.5); WHITE BLOOD COUNT 28.3 K/uL (4.8-10.8)
[2018-05-19 06:34] LABS: ALBUMIN 2.3 g/dL (3.5-5.0)
--- NOTE | 2018-05-19 07:17 | CP.CCUPN ---
<Kei Burns - Last Filed: 05/19/18 14:32> CCU Subjective - Physician Review Subjective (Free Text): ICU Progress Note for Dr. Ramon Pt seen and examined at bedside. Currently intubated. Unable to obtain HPI or ROS due to pt's current clinical status. No acute events reported overnight by staff. CCU Objective - Vital Signs / Intake & Output Vital Signs (Last 4 hours): Vital Signs Temp Pulse Resp BP Pulse Ox 05/19/18 06:00 70 18 99 05/19/18 05:58 109/42 L 05/19/18 05:00 71 16 100 05/19/18 04:58 130/47 L 05/19/18 04:00 99.8 F H 69 18 99 05/19/18 03:58 114/44 L Intake and Output (Last 8hrs): Intake & Output 05/18/18 05/19/18 05/19/18 22:59 06:59 14:59 Intake Total 512.2 553.6 Output Total 0 20 Balance 512.2 533.6 Weight 160 lb 9.6 oz Intake: IV 37 50 Intake, IV Amount 215.2 143.6 Left Antecubital 50 Right Antecubital 50 Right Internal Jugular 15.2 17.1 Trialysis Catheter right ac y port 150 76.5 Tube Feeding 260 360 Output: Gastric Amount 0 Stomach 0 Urine 0 20 Urethral ([place]) 0 20 Other: # Bowel Movements 0 1 - Physical Exam Head: Positive for: Atraumatic, Normocephalic Pupils: Positive for: PERRL Extroacular Muscles: Positive for: EOMI Conjunctiva: Positive for: Normal Ears: Positive for: Normal Mouth: Positive for: Moist Mucous Membranes Nose (External): Positive for: Atraumatic Respiratory/Chest: Positive for: Clear to Auscultation Cardiovascular: Positive for: Regular Rate and Rhythm Abdomen: Positive for: Normal Bowel Sounds. Negative for: Tenderness, Distention Upper Extremity: Positive for: Edema Lower Extremity: Positive for: Edema, Other (skin blisters noted on L anterior calf) Neurological: Positive for: Other (intubated) Psychiatric: Positive for: Other (intubated). Negative for: Alert, Oriented x 3 - Medications Active Medications: Active Medications Generic Name Dose Route Start Last Admin Trade Name Freq PRN Reason Stop Dose Admin Acetaminophen 650 mg 05/18/18 00:30 05/18/18 23:21 Tylenol 650mg/20.3ml Solution Ud PO 650 mg Q6 PRN Administration Fever >100.4 F or Pain Dextrose 0 ml 05/16/18 18:32 05/18/18 18:17 Dextrose 50% Inj IV 50 ml STAT PRN Administration Hypoglycemia Protocol Protocol Dextrose 0 gm 05/16/18 18:32 Glutose 15 PO ONCE PRN Hypoglycemia Protocol Protocol Epoetin Anthony 8,000 unit 05/18/18 13:45 05/18/18 13:52 Procrit SC 8,000 unit MWF [facility] Administration Ergocalciferol 1 cap 05/18/18 10:45 05/18/18 13:24 Drisdol 50,000 Intl Units Cap PO 1 cap Q7D [facility] Administration Ferrous Gluconate 324 mg 05/18/18 14:00 05/18/18 19:48 Fergon PO 324 mg TID [facility] Administration Glucagon 0 mg 05/16/18 18:32 Glucagen Diagnostic Kit IM STAT PRN Hypoglycemia Protocol Protocol Heparin Sodium (Porcine) 5,000 units 05/16/18 17:45 05/19/18 05:17 Heparin SC 5,000 units Q12H [facility] Administration Vancomycin/Sodium Chloride 1 gm in 200 mls @ 133 mls/hr 05/16/18 10:00 05/18/18 12:38 Vancomycin 1 Gm/Ns 200 Ml IVPB 05/21/18 10:01 133 mls/hr Q24H [facility] Administration Protocol Dexmedetomidine HCl 200 mcg/ 50 mls @ 3.4 mls/hr 05/15/18 20:23 05/19/18 03:36 Sodium Chloride IV 0.5 mcg/kg/hr TITR PRN 8.5 mls/hr Sedation Administration Protocol 0.2 MCG/KG/HR Norepinephrine Bitartrate 8 mg 258 mls @ 7.74 mls/hr 05/16/18 11:55 05/18/18 19:48 / Sodium Chloride IV 1 mcg/min .Q24H PRN 1.94 mls/hr TITRATE PER MD ORDER Administration Protocol 4 MCG/MIN Dextrose 1,000 mls @ 0 mls/hr 05/16/18 18:32 Dextrose 5% In Water 1000 Ml IV .Q0M PRN Hypoglycemia Protocol Protocol Per Protocol Aztreonam 1 gm/ Sodium 100 mls @ 100 mls/hr 05/17/18 20:00 05/18/18 20:24 Chloride IVPB 100 mls/hr Q12H [facility] Administration Protocol Clindamycin Phosphate 600 mg/ 54 mls @ 100 mls/hr 05/17/18 22:00 05/19/18 05:17 Sodium Chloride IVPB 100 mls/hr Q8H [facility] Administration Protocol Insulin Aspart 0 unit 05/18/18 00:00 05/19/18 05:18 Novolog SC Not Given Q6 [facility] Protocol Pantoprazole Sodium 40 mg 05/17/18 10:00 05/18/18 10:00 Protonix Inj IVP 40 mg DAILY [facility] Administration Vitamin B Complex/Vit C/Folic Acid 1 tab 05/19/18 08:00 Nephro-Pancho PO 0800 [facility] - Patient Studies Lab Studies: Microbiology Studies 05/15/18 11:20 S.aureus & Coag-Neg Staph PNA FISH - Final Blood Blood Culture - Final Group C Streptococcus Gram Stain - Final 05/15/18 11:30 Blood Culture - Final Blood Group C Streptococcus Gram Stain - Final 05/16/18 04:02 Urine Culture - Final Urine,[place] Escherichia Coli Lab Studies 05/19/18 05/19/18 05/19/18 Range/Units 06:00 05:55 05:55 WBC 28.3 H D (4.8-10.8) K/uL RBC 2.30 L (3.80-5.20) Mil/uL Hgb 7.6 L (11.0-16.0) g/dL Hct 23.6 L (34.0-47.0) % MCV 102.7 H (81.0-99.0) fL MCH 33.2 H (27.0-31.0) pg MCHC 32.3 L (33.0-37.0) g/dL RDW 16.7 H (11.5-14.5) % Plt Count 45 L (130-400) K/uL MPV 12.1 H (7.2-11.7) fL Neut % (Auto) 94.6 H (50.0-75.0) % Lymph % (Auto) 2.0 L (20.0-40.0) % Andrew % (Auto) 2.9 (0.0-10.0) % Eos % (Auto) 0.4 (0.0-4.0) % Baso % (Auto) 0.1 (0.0-2.0) % Neut # (Auto) 26.8 H (1.8-7.0) K/uL Lymph # (Auto) 0.6 L (1.0-4.3) K/uL Andrew # (Auto) 0.8 (0.0-0.8) K/uL Eos # (Auto) 0.1 (0.0-0.7) K/uL Baso # (Auto) 0.0 (0.0-0.2) K/uL Neutrophils % (Manual) (50-75) % Band Neutrophils % (0-2) % Lymphocytes % (Manual) (20-40) % Monocytes % (Manual) (0-10) % Platelet Estimate (NORMAL) Polychromasia Hypochromasia (manual) Anisocytosis (manual) Macrocytosis (manual) Ovalocytes Puncture Site pCO2 (35-45) mm/Hg pO2 (80-100) mm/Hg HCO3 (21-28) mmol/L ABG pH (7.35-7.45) ABG Total CO2 (22-28) mmol/L ABG O2 Saturation (95-98) % ABG Base Excess (-2.0-3.0) mmol/L Nicolás Test ABG Potassium (3.6-5.2) mmol/L A-a O2 Difference mm/Hg Respiratory Index Sodium (132-148) mmol/l Chloride (98-107) mmol/L Glucose (65-105) mg/dl Lactate (0.7-2.1) mmol/L Vent Mode Mechanical Rate FiO2 % Tidal Volume PEEP Potassium (3.6-5.2) mmol/L Carbon Dioxide (22-30) mmol/L Anion Gap (10-20) BUN (7-17) mg/dL Creatinine (0.7-1.2) mg/dL Est GFR ( Amer) Est GFR (Non-Af Amer) POC Glucose (mg/dL) (65-110) mg/dL Random Glucose (65-105) mg/dL Calcium (8.6-10.4) mg/dl Phosphorus 3.2 (2.5-4.5) mg/dL Magnesium 1.9 (1.6-2.3) mg/dL Total Bilirubin (0.2-1.3) mg/dL AST (14-36) U/L ALT (9-52) U/L Alkaline Phosphatase (38-126) U/L Total Protein (6.3-8.3) g/dL Albumin (3.5-5.0) g/dL Globulin (2.2-3.9) gm/dL Albumin/Globulin Ratio (1.0-2.1) Arterial Blood Potassium (3.6-5.2) mmol/L Vancomycin Trough 32.9 H (5.0-10.0) ug/mL Hepatitis A IgM Ab (NEGATIVE) Hep Bs Antigen (NEGATIVE) Hep B Core IgM Ab (NEGATIVE) Hepatitis C Antibody (NEGATIVE) HIV 1&2 Antibody Screen (NEGATIVE) 05/19/18 05/19/18 05/19/18 Range/Units 05:55 05:30 00:13 WBC (4.8-10.8) K/uL RBC (3.80-5.20) Mil/uL Hgb (11.0-16.0) g/dL Hct (34.0-47.0) % MCV (81.0-99.0) fL MCH (27.0-31.0) pg MCHC (33.0-37.0) g/dL RDW (11.5-14.5) % Plt Count (130-400) K/uL MPV (7.2-11.7) fL Neut % (Auto) (50.0-75.0) % Lymph % (Auto) (20.0-40.0) % Andrew % (Auto) (0.0-10.0) % Eos % (Auto) (0.0-4.0) % Baso % (Auto) (0.0-2.0) % Neut # (Auto) (1.8-7.0) K/uL Lymph # (Auto) (1.0-4.3) K/uL Andrew # (Auto) (0.0-0.8) K/uL Eos # (Auto) (0.0-0.7) K/uL Baso # (Auto) (0.0-0.2) K/uL Neutrophils % (Manual) (50-75) % Band Neutrophils % (0-2) % Lymphocytes % (Manual) (20-40) % Monocytes % (Manual) (0-10) % Platelet Estimate (NORMAL) Polychromasia Hypochromasia (manual) Anisocytosis (manual) Macrocytosis (manual) Ovalocytes Puncture Site Lr pCO2 42 (35-45) mm/Hg pO2 122 H (80-100) mm/Hg HCO3 24.7 (21-28) mmol/L ABG pH 7.38 (7.35-7.45) ABG Total CO2 26.1 (22-28) mmol/L ABG O2 Saturation 97.3 (95-98) % ABG Base Excess -0.4 (-2.0-3.0) mmol/L Nicolás Test Pos ABG Potassium 3.1 L (3.6-5.2) mmol/L A-a O2 Difference 146.0 mm/Hg Respiratory Index 1.2 Sodium 135 138.0 (132-148) mmol/l Chloride 100 106.0 (98-107) mmol/L Glucose 137 H (65-105) mg/dl Lactate 1.6 (0.7-2.1) mmol/L Vent Mode Prvc Mechanical Rate 18 FiO2 45.0 % Tidal Volume 400 PEEP 5 Potassium 3.3 L (3.6-5.2) mmol/L Carbon Dioxide 26 (22-30) mmol/L Anion Gap 13 (10-20) BUN 39 H (7-17) mg/dL Creatinine 2.6 H (0.7-1.2) mg/dL Est GFR ( Amer) 22 Est GFR (Non-Af Amer) 18 POC Glucose (mg/dL) 138 H (65-110) mg/dL Random Glucose 131 H D (65-105) mg/dL Calcium 8.0 L (8.6-10.4) mg/dl Phosphorus (2.5-4.5) mg/dL Magnesium (1.6-2.3) mg/dL Total Bilirubin 1.3 (0.2-1.3) mg/dL AST 37 H (14-36) U/L ALT 26 (9-52) U/L Alkaline Phosphatase 102 (38-126) U/L Total Protein 4.6 L (6.3-8.3) g/dL Albumin 2.3 L (3.5-5.0) g/dL Globulin 2.3 (2.2-3.9) gm/dL Albumin/Globulin Ratio 1.0 (1.0-2.1) Arterial Blood Potassium 3.1 L (3.6-5.2) mmol/L Vancomycin Trough (5.0-10.0) ug/mL Hepatitis A IgM Ab (NEGATIVE) Hep Bs Antigen (NEGATIVE) Hep B Core IgM Ab (NEGATIVE) Hepatitis C Antibody (NEGATIVE) HIV 1&2 Antibody Screen (NEGATIVE) 05/18/18 05/17/18 05/17/18 Range/Units 06:13 06:09 06:09 WBC (4.8-10.8) K/uL RBC (3.80-5.20) Mil/uL Hgb (11.0-16.0) g/dL Hct (34.0-47.0) % MCV (81.0-99.0) fL MCH (27.0-31.0) pg MCHC (33.0-37.0) g/dL RDW (11.5-14.5) % Plt Count (130-400) K/uL MPV (7.2-11.7) fL Neut % (Auto) (50.0-75.0) % Lymph % (Auto) (20.0-40.0) % Andrew % (Auto) (0.0-10.0) % Eos % (Auto) (0.0-4.0) % Baso % (Auto) (0.0-2.0) % Neut # (Auto) (1.8-7.0) K/uL Lymph # (Auto) (1.0-4.3) K/uL Andrew # (Auto) (0.0-0.8) K/uL Eos # (Auto) (0.0-0.7) K/uL Baso # (Auto) (0.0-0.2) K/uL Neutrophils % (Manual) 54 (50-75) % Band Neutrophils % 27 H* (0-2) % Lymphocytes % (Manual) 6 L (20-40) % Monocytes % (Manual) 13 H (0-10) % Platelet Estimate Decreased L (NORMAL) Polychromasia Slight Hypochromasia (manual) Slight Anisocytosis (manual) Slight Macrocytosis (manual) Slight Ovalocytes Slight Puncture Site pCO2 (35-45) mm/Hg pO2 (80-100) mm/Hg HCO3 (21-28) mmol/L ABG pH (7.35-7.45) ABG Total CO2 (22-28) mmol/L ABG O2 Saturation (95-98) % ABG Base Excess (-2.0-3.0) mmol/L Nicolás Test ABG Potassium (3.6-5.2) mmol/L A-a O2 Difference mm/Hg Respiratory Index Sodium (132-148) mmol/l Chloride (98-107) mmol/L Glucose (65-105) mg/dl Lactate (0.7-2.1) mmol/L Vent Mode Mechanical Rate FiO2 % Tidal Volume PEEP Potassium (3.6-5.2) mmol/L Carbon Dioxide (22-30) mmol/L Anion Gap (10-20) BUN (7-17) mg/dL Creatinine (0.7-1.2) mg/dL Est GFR ( Amer) Est GFR (Non-Af Amer) POC Glucose (mg/dL) (65-110) mg/dL Random Glucose (65-105) mg/dL Calcium (8.6-10.4) mg/dl Phosphorus (2.5-4.5) mg/dL Magnesium (1.6-2.3) mg/dL Total Bilirubin (0.2-1.3) mg/dL AST (14-36) U/L ALT (9-52) U/L Alkaline Phosphatase (38-126) U/L Total Protein (6.3-8.3) g/dL Albumin (3.5-5.0) g/dL Globulin (2.2-3.9) gm/dL Albumin/Globulin Ratio (1.0-2.1) Arterial Blood Potassium (3.6-5.2) mmol/L Vancomycin Trough (5.0-10.0) ug/mL Hepatitis A IgM Ab Negative (NEGATIVE) Hep Bs Antigen Negative (NEGATIVE) Hep B Core IgM Ab Negative (NEGATIVE) Hepatitis C Antibody Negative (NEGATIVE) HIV 1&2 Antibody Screen Negative (NEGATIVE) Laboratory Results - last 24 hr 05/17/18 05/17/18 05/18/18 06:09 06:09 06:13 WBC RBC Hgb Hct MCV MCH MCHC RDW Plt Count MPV Neut % (Auto) Lymph % (Auto) Andrew % (Auto) Eos % (Auto) Baso % (Auto) Neut # (Auto) Lymph # (Auto) Andrew # (Auto) Eos # (Auto) Baso # (Auto) Neutrophils % (Manual) 54 Band Neutrophils % 27 H* Lymphocytes % (Manual) 6 L Monocytes % (Manual) 13 H Platelet Estimate Decreased L Polychromasia Slight Hypochromasia (manual) Slight Anisocytosis (manual) Slight Macrocytosis (manual) Slight Ovalocytes Slight Puncture Site pCO2 pO2 HCO3 ABG pH ABG Total CO2 ABG O2 Saturation ABG Base Excess Nicolás Test ABG Potassium A-a O2 Difference Respiratory Index Sodium Chloride Glucose Lactate Vent Mode Mechanical Rate FiO2 Tidal Volume PEEP Potassium Carbon Dioxide Anion Gap BUN Creatinine Est GFR ( Amer) Est GFR (Non-Af Amer) POC Glucose (mg/dL) Random Glucose Calcium Phosphorus Magnesium Total Bilirubin AST ALT Alkaline Phosphatase Total Protein Albumin Globulin Albumin/Globulin Ratio Arterial Blood Potassium Vancomycin Trough Hepatitis A IgM Ab Negative Hep Bs Antigen Negative Hep B Core IgM Ab Negative Hepatitis C Antibody Negative HIV 1&2 Antibody Screen Negative 05/19/18 05/19/18 05/19/18 00:13 05:30 05:55 WBC RBC Hgb Hct MCV MCH MCHC RDW Plt Count MPV Neut % (Auto) Lymph % (Auto) Andrew % (Auto) Eos % (Auto) Baso % (Auto) Neut # (Auto) Lymph # (Auto) Andrew # (Auto) Eos # (Auto) Baso # (Auto) Neutrophils % (Manual) Band Neutrophils % Lymphocytes % (Manual) Monocytes % (Manual) Platelet Estimate Polychromasia Hypochromasia (manual) Anisocytosis (manual) Macrocytosis (manual) Ovalocytes Puncture Site Lr pCO2 42 pO2 122 H HCO3 24.7 ABG pH 7.38 ABG Total CO2 26.1 ABG O2 Saturation 97.3 ABG Base Excess -0.4 Nicolás Test Pos ABG Potassium 3.1 L A-a O2 Difference 146.0 Respiratory Index 1.2 Sodium 138.0 135 Chloride 106.0 100 Glucose 137 H Lactate 1.6 Vent Mode Prvc Mechanical Rate 18 FiO2 45.0 Tidal Volume 400 PEEP 5 Potassium 3.3 L Carbon Dioxide 26 Anion Gap 13 BUN 39 H Creatinine 2.6 H Est GFR ( Amer) 22 Est GFR (Non-Af Amer) 18 POC Glucose (mg/dL) 138 H Random Glucose 131 H D Calcium 8.0 L Phosphorus Magnesium Total Bilirubin 1.3 AST 37 H ALT 26 Alkaline Phosphatase 102 Total Protein 4.6 L Albumin 2.3 L Globulin 2.3 Albumin/Globulin Ratio 1.0 Arterial Blood Potassium 3.1 L Vancomycin Trough Hepatitis A IgM Ab Hep Bs Antigen Hep B Core IgM Ab Hepatitis C Antibody HIV 1&2 Antibody Screen 05/19/18 05/19/18 05/19/18 05:55 05:55 06:00 WBC 28.3 H D RBC 2.30 L Hgb 7.6 L Hct 23.6 L MCV 102.7 H MCH 33.2 H MCHC 32.3 L RDW 16.7 H Plt Count 45 L MPV 12.1 H Neut % (Auto) 94.6 H Lymph % (Auto) 2.0 L Andrew % (Auto) 2.9 Eos % (Auto) 0.4 Baso % (Auto) 0.1 Neut # (Auto) 26.8 H Lymph # (Auto) 0.6 L Andrew # (Auto) 0.8 Eos # (Auto) 0.1 Baso # (Auto) 0.0 Neutrophils % (Manual) Band Neutrophils % Lymphocytes % (Manual) Monocytes % (Manual) Platelet Estimate Polychromasia Hypochromasia (manual) Anisocytosis (manual) Macrocytosis (manual) Ovalocytes Puncture Site pCO2 pO2 HCO3 ABG pH ABG Total CO2 ABG O2 Saturation ABG Base Excess Nicolás Test ABG Potassium A-a O2 Difference Respiratory Index Sodium Chloride Glucose Lactate Vent Mode Mechanical Rate FiO2 Tidal Volume PEEP Potassium Carbon Dioxide Anion Gap BUN Creatinine Est GFR ( Amer) Est GFR (Non-Af Amer) POC Glucose (mg/dL) Random Glucose Calcium Phosphorus 3.2 Magnesium 1.9 Total Bilirubin AST ALT Alkaline Phosphatase Total Protein Albumin Globulin Albumin/Globulin Ratio Arterial Blood Potassium Vancomycin Trough 32.9 H Hepatitis A IgM Ab Hep Bs Antigen Hep B Core IgM Ab Hepatitis C Antibody HIV 1&2 Antibody Screen Radiology Impressions: Radiology Impressions Duplex Scan Lower Extremity Artery 05/15/18 12:07 IMPRESSION: No evidence of deep or superficial vein thrombosis of the left lower extremity with excellent venous flow. Normal valve function noted of the left side. Normal venous flow noted in the right common femoral vein. Chest X-Ray 05/18/18 07:00 IMPRESSION: No significant interval change. Fingerstick Blood Sugar Results: 148 Review of Systems - Review of Systems Systems not reviewed;Unavailable: Intubated Assessment/Plan - Assessment and Plan (Free Text) Assessment: 72 y o female with PMhx CHF, CAD, HTN, HLD, hx thyroid disease and renal disease, who presented to the ED with c/o LLE swelling and pain x 1 day induration, was also having fever. Code Sepsis called in ED. Pt was admitted to medical floor. Pt had repeated episodes of tachycardia and hypotension, leading to RN CRITICAL CARE on 05/15 in which pt became more lethargic-appearing on exam after vomiting episode, s/p intubation by anesthesia, pt was transferred to ICU for further monitoring. Acute respiratory failure likely 2/2 aspiration of bilious vomit. Intubated on vent, plan for weaning protocol and CPAP trials. Was placed on Levophed drip for septic shock with Group C strep bacteremia from LLE cellulitis and urine cx pos for E. coli, tapered down. Presented with oliguria, acute tubular necrosis, started on HD 05/17/18, 3rd treatment of HD to be given today. Plan: Neuro: -Currently intubated -No gross deficits on exam, cont to monitor Cardio: -Hx CABG, HTN, CHF, HLD -Dr. Ramires consulted, recs appreciated -Echo 05/15: LV function severely reduced, diffuse hypokinesis. EF 20%. Septum dyskinetic and demonstrates flattening, elevated RV pressure. R ventricle, L and R atria dilated. Severe pulmonary HTN. -Pressor therapy tapered down -Hemodymanically stable, cont to monitor Pulm: -Intubated on PRVC -Weaning protocol and CPAP trials as tolerated -Maintain O2 sat > 92% -Bronchodilators -Acute respiratory failure likely 2/2 aspiration of bilious vomit -Vanco/Azactam/Clindamycin -Vanco trough elevated, Vanco dose to be held this am -Leukocytosis trending up, bands present -Blood cxs growing Group C strep, urine cx growing E.coli GI: -NPO -Glucerna tube feeds -Protonix Heme: -Dr. Duggan consulted for pancytopenia, recs appreciated -Procrit MWF -H/H 7.6/23.6, cont to trend, transfuse prn -Thrombocytopenia worsening, cont to trend Renal: -Oliguria, ATN -Dr. Pereira consulted, recs appreciated -To receive 3rd treatment of HD today, cont to monitor ID: -Tx possible aspiration PNA and UTI as noted above -ID consulted, Dr. Guevara, recs appreciated Endo: -Hx DM2 -Fingersticks q6h -ISS -Hypoglycemic protocol PPX: -Protonix, Heparin on hold 2/2 low Hgb Pt seen, examined with, and plan discussed with Dr. Ramon, attending physician. Kei Burns DO PGY-1, [employer] Hand Pager #[phone] <Toney Ramon S - Last Filed: 05/19/18 17:15> CCU Subjective - Physician Review Critical Care Time Spent (in minutes): 45 CCU Objective - Vital Signs / Intake & Output Vital Signs (Last 4 hours): Vital Signs Temp Pulse Pulse Resp BP BP Pulse Ox 05/19/18 17:09 87 13 122/51 L 100 05/19/18 16:55 80 14 109/51 L 100 05/19/18 16:40 79 15 112/57 L 100 05/19/18 16:25 81 14 125/51 L 100 05/19/18 16:12 89 16 125/51 L 100 05/19/18 16:10 100.2 F H 89 13 127/55 L 100 05/19/18 16:08 100.9 F H 05/19/18 16:00 100.2 F H 90 16 100 05/19/18 15:57 90 17 127/55 L 100 05/19/18 15:55 100.2 F H 88 13 121/52 L 05/19/18 15:42 82 16 121/52 L 100 05/19/18 15:27 87 14 123/55 L 100 05/19/18 15:12 87 16 116/54 L 100 05/19/18 15:00 79 18 100 05/19/18 14:57 80 17 105/50 L 100 05/19/18 14:35 72 16 93/44 L 99 05/19/18 14:25 73 20 95/46 L 100 05/19/18 14:05 70 12 84/35 L 100 05/19/18 14:00 70 14 99 05/19/18 13:35 83 19 87/44 L 97 Intake and Output (Last 8hrs): Intake & Output 05/19/18 05/19/1805/19/19 06:59 14:59 22:59 Intake Total 553.6 467.3 120.4 Output Total 20 7 Balance 533.6 460.3 120.4 Weight 160 lb 9.6 oz Intake: IV 50 123 15 Intake, IV Amount 143.6 64.3 25.4 Left Forearm 51.0 17.8 Right Antecubital 50 Right Internal Jugular 17.1 13.3 7.6 Trialysis Catheter right ac y port 76.5 Tube Feeding 360 280 80 Output: Urine 20 7 Urethral ([place]) 20 7 Other: # Bowel Movements 1 - Medications Active Medications: Active Medications Generic Name Dose Route Start Last Admin Trade Name Freq PRN Reason Stop Dose Admin Acetaminophen 650 mg 05/18/18 00:30 05/19/18 16:08 Tylenol 650mg/20.3ml Solution Ud PO 650 mg Q6 PRN Administration Fever >100.4 F or Pain Dextrose 0 ml 05/16/18 18:32 05/18/18 18:17 Dextrose 50% Inj IV 50 ml STAT PRN Administration Hypoglycemia Protocol Protocol Dextrose 0 gm 05/16/18 18:32 Glutose 15 PO ONCE PRN Hypoglycemia Protocol Protocol Epoetin Anthony 8,000 unit 05/18/18 13:45 05/18/18 13:52 Procrit SC 8,000 unit MWF [facility] Administration Ergocalciferol 1 cap 05/18/18 10:45 05/18/18 13:24 Drisdol 50,000 Intl Units Cap PO 1 cap Q7D [facility] Administration Ferrous Gluconate 324 mg 05/18/18 14:00 05/19/18 14:04 Fergon PO 324 mg TID [facility] Administration Glucagon 0 mg 05/16/18 18:32 Glucagen Diagnostic Kit IM STAT PRN Hypoglycemia Protocol Protocol Heparin Sodium (Porcine) 5,000 units 05/16/18 17:45 05/19/18 05:17 Heparin SC 5,000 units Q12H [facility] Administration Dexmedetomidine HCl 200 mcg/ 50 mls @ 3.4 mls/hr 05/15/18 20:23 05/19/18 16:07 Sodium Chloride IV 0.5 mcg/kg/hr TITR PRN 8.5 mls/hr Sedation Administration Protocol 0.2 MCG/KG/HR Norepinephrine Bitartrate 8 mg 258 mls @ 7.74 mls/hr 05/16/18 11:55 05/19/18 15:15 / Sodium Chloride IV 3 mcg/min .Q24H PRN 5.81 mls/hr TITRATE PER MD ORDER Titration Protocol 4 MCG/MIN Dextrose 1,000 mls @ 0 mls/hr 05/16/18 18:32 Dextrose 5% In Water 1000 Ml IV .Q0M PRN Hypoglycemia Protocol Protocol Per Protocol Aztreonam 1 gm/ Sodium 100 mls @ 100 mls/hr 05/17/18 20:00 05/19/18 07:58 Chloride IVPB 100 mls/hr Q12H [facility] Administration Protocol Clindamycin Phosphate 600 mg/ 54 mls @ 100 mls/hr 05/17/18 22:00 05/19/18 14:03 Sodium Chloride IVPB 100 mls/hr Q8H [facility] Administration Protocol Vancomycin/Sodium Chloride 1 gm in 200 mls @ 133.333 mls/hr 05/20/18 09:00 Vancomycin 1 Gm/Ns 200 Ml IVPB 05/25/18 09:01 MWF [facility] Protocol Insulin Aspart 0 unit 05/18/18 00:00 05/19/18 11:45 Novolog SC 2 units Q6 [facility] Administration Protocol Pantoprazole Sodium 40 mg 05/17/18 10:00 05/19/18 09:18 Protonix Inj IVP 40 mg DAILY [facility] Administration Vitamin B Complex/Vit C/Folic Acid 1 tab 05/19/18 08:00 05/19/18 08:16 Nephro-Pancho PO 1 tab 0800 [facility] Administration - Patient Studies Lab Studies: Microbiology Studies 05/19/18 11:56 Gram Stain - Final Sputum Lab Studies 05/19/18 05/19/18 05/19/18 Range/Units 11:56 11:25 06:00 WBC 28.3 H D (4.8-10.8) K/uL RBC 2.30 L (3.80-5.20) Mil/uL Hgb 7.6 L (11.0-16.0) g/dL Hct 23.6 L (34.0-47.0) % MCV 102.7 H (81.0-99.0) fL MCH 33.2 H (27.0-31.0) pg MCHC 32.3 L (33.0-37.0) g/dL RDW 16.7 H (11.5-14.5) % Plt Count 45 L (130-400) K/uL MPV 12.1 H (7.2-11.7) fL Neut % (Auto) 94.6 H (50.0-75.0) % Lymph % (Auto) 2.0 L (20.0-40.0) % Andrew % (Auto) 2.9 (0.0-10.0) % Eos % (Auto) 0.4 (0.0-4.0) % Baso % (Auto) 0.1 (0.0-2.0) % Neut # (Auto) 26.8 H (1.8-7.0) K/uL Lymph # (Auto) 0.6 L (1.0-4.3) K/uL Andrew # (Auto) 0.8 (0.0-0.8) K/uL Eos # (Auto) 0.1 (0.0-0.7) K/uL Baso # (Auto) 0.0 (0.0-0.2) K/uL Neutrophils % (Manual) 60 (50-75) % Band Neutrophils % 31 H* (0-2) % Lymphocytes % (Manual) 1 L (20-40) % Monocytes % (Manual) 8 (0-10) % Platelet Estimate Decreased L (NORMAL) Polychromasia Slight Hypochromasia (manual) Slight Anisocytosis (manual) Slight Macrocytosis (manual) Slight Ovalocytes Slight Puncture Site pCO2 (35-45) mm/Hg pO2 (80-100) mm/Hg HCO3 (21-28) mmol/L ABG pH (7.35-7.45) ABG Total CO2 (22-28) mmol/L ABG O2 Saturation (95-98) % ABG Base Excess (-2.0-3.0) mmol/L Nicolás Test ABG Potassium (3.6-5.2) mmol/L A-a O2 Difference mm/Hg Respiratory Index Sodium (132-148) mmol/l Chloride (98-107) mmol/L Glucose (65-105) mg/dl Lactate (0.7-2.1) mmol/L Vent Mode Mechanical Rate FiO2 % Tidal Volume PEEP Potassium (3.6-5.2) mmol/L Carbon Dioxide (22-30) mmol/L Anion Gap (10-20) BUN (7-17) mg/dL Creatinine (0.7-1.2) mg/dL Est GFR ( Amer) Est GFR (Non-Af Amer) POC Glucose (mg/dL) 178 H (65-110) mg/dL Random Glucose (65-105) mg/dL Calcium (8.6-10.4) mg/dl Phosphorus (2.5-4.5) mg/dL Magnesium (1.6-2.3) mg/dL Total Bilirubin (0.2-1.3) mg/dL AST (14-36) U/L ALT (9-52) U/L Alkaline Phosphatase (38-126) U/L Total Protein (6.3-8.3) g/dL Albumin (3.5-5.0) g/dL Globulin (2.2-3.9) gm/dL Albumin/Globulin Ratio (1.0-2.1) Arterial Blood Potassium (3.6-5.2) mmol/L Vancomycin Trough (5.0-10.0) ug/mL Mycoplasma pneumon IgM Negative (NEGATIVE) 05/19/18 05/19/18 05/19/18 Range/Units 05:55 05:55 05:55 WBC (4.8-10.8) K/uL RBC (3.80-5.20) Mil/uL Hgb (11.0-16.0) g/dL Hct (34.0-47.0) % MCV (81.0-99.0) fL MCH (27.0-31.0) pg MCHC (33.0-37.0) g/dL RDW (11.5-14.5) % Plt Count (130-400) K/uL MPV (7.2-11.7) fL Neut % (Auto) (50.0-75.0) % Lymph % (Auto) (20.0-40.0) % Andrew % (Auto) (0.0-10.0) % Eos % (Auto) (0.0-4.0) % Baso % (Auto) (0.0-2.0) % Neut # (Auto) (1.8-7.0) K/uL Lymph # (Auto) (1.0-4.3) K/uL Andrew # (Auto) (0.0-0.8) K/uL Eos # (Auto) (0.0-0.7) K/uL Baso # (Auto) (0.0-0.2) K/uL Neutrophils % (Manual) (50-75) % Band Neutrophils % (0-2) % Lymphocytes % (Manual) (20-40) % Monocytes % (Manual) (0-10) % Platelet Estimate (NORMAL) Polychromasia Hypochromasia (manual) Anisocytosis (manual) Macrocytosis (manual) Ovalocytes Puncture Site pCO2 (35-45) mm/Hg pO2 (80-100) mm/Hg HCO3 (21-28) mmol/L ABG pH (7.35-7.45) ABG Total CO2 (22-28) mmol/L ABG O2 Saturation (95-98) % ABG Base Excess (-2.0-3.0) mmol/L Nicolás Test ABG Potassium (3.6-5.2) mmol/L A-a O2 Difference mm/Hg Respiratory Index Sodium 135 (132-148) mmol/l Chloride 100 (98-107) mmol/L Glucose (65-105) mg/dl Lactate (0.7-2.1) mmol/L Vent Mode Mechanical Rate FiO2 % Tidal Volume PEEP Potassium 3.3 L (3.6-5.2) mmol/L Carbon Dioxide 26 (22-30) mmol/L Anion Gap 13 (10-20) BUN 39 H (7-17) mg/dL Creatinine 2.6 H (0.7-1.2) mg/dL Est GFR ( Amer) 22 Est GFR (Non-Af Amer) 18 POC Glucose (mg/dL) (65-110) mg/dL Random Glucose 131 H D (65-105) mg/dL Calcium 8.0 L (8.6-10.4) mg/dl Phosphorus 3.2 (2.5-4.5) mg/dL Magnesium 1.9 (1.6-2.3) mg/dL Total Bilirubin 1.3 (0.2-1.3) mg/dL AST 37 H (14-36) U/L ALT 26 (9-52) U/L Alkaline Phosphatase 102 (38-126) U/L Total Protein 4.6 L (6.3-8.3) g/dL Albumin 2.3 L (3.5-5.0) g/dL Globulin 2.3 (2.2-3.9) gm/dL Albumin/Globulin Ratio 1.0 (1.0-2.1) Arterial Blood Potassium (3.6-5.2) mmol/L Vancomycin Trough 32.9 H (5.0-10.0) ug/mL Mycoplasma pneumon IgM (NEGATIVE) 05/19/18 05/19/18 05/19/18 Range/Units 05:30 05:15 00:13 WBC (4.8-10.8) K/uL RBC (3.80-5.20) Mil/uL Hgb (11.0-16.0) g/dL Hct (34.0-47.0) % MCV (81.0-99.0) fL MCH (27.0-31.0) pg MCHC (33.0-37.0) g/dL RDW (11.5-14.5) % Plt Count (130-400) K/uL MPV (7.2-11.7) fL Neut % (Auto) (50.0-75.0) % Lymph % (Auto) (20.0-40.0) % Andrew % (Auto) (0.0-10.0) % Eos % (Auto) (0.0-4.0) % Baso % (Auto) (0.0-2.0) % Neut # (Auto) (1.8-7.0) K/uL Lymph # (Auto) (1.0-4.3) K/uL Andrew # (Auto) (0.0-0.8) K/uL Eos # (Auto) (0.0-0.7) K/uL Baso # (Auto) (0.0-0.2) K/uL Neutrophils % (Manual) (50-75) % Band Neutrophils % (0-2) % Lymphocytes % (Manual) (20-40) % Monocytes % (Manual) (0-10) % Platelet Estimate (NORMAL) Polychromasia Hypochromasia (manual) Anisocytosis (manual) Macrocytosis (manual) Ovalocytes Puncture Site Lr pCO2 42 (35-45) mm/Hg pO2 122 H (80-100) mm/Hg HCO3 24.7 (21-28) mmol/L ABG pH 7.38 (7.35-7.45) ABG Total CO2 26.1 (22-28) mmol/L ABG O2 Saturation 97.3 (95-98) % ABG Base Excess -0.4 (-2.0-3.0) mmol/L Nicolás Test Pos ABG Potassium 3.1 L (3.6-5.2) mmol/L A-a O2 Difference 146.0 mm/Hg Respiratory Index 1.2 Sodium 138.0 (132-148) mmol/l Chloride 106.0 (98-107) mmol/L Glucose 137 H (65-105) mg/dl Lactate 1.6 (0.7-2.1) mmol/L Vent Mode Prvc Mechanical Rate 18 FiO2 45.0 % Tidal Volume 400 PEEP 5 Potassium (3.6-5.2) mmol/L Carbon Dioxide (22-30) mmol/L Anion Gap (10-20) BUN (7-17) mg/dL Creatinine (0.7-1.2) mg/dL Est GFR ( Amer) Est GFR (Non-Af Amer) POC Glucose (mg/dL) 146 H 138 H (65-110) mg/dL Random Glucose (65-105) mg/dL Calcium (8.6-10.4) mg/dl Phosphorus (2.5-4.5) mg/dL Magnesium (1.6-2.3) mg/dL Total Bilirubin (0.2-1.3) mg/dL AST (14-36) U/L ALT (9-52) U/L Alkaline Phosphatase (38-126) U/L Total Protein (6.3-8.3) g/dL Albumin (3.5-5.0) g/dL Globulin (2.2-3.9) gm/dL Albumin/Globulin Ratio (1.0-2.1) Arterial Blood Potassium 3.1 L (3.6-5.2) mmol/L Vancomycin Trough (5.0-10.0) ug/mL Mycoplasma pneumon IgM (NEGATIVE) Laboratory Results - last 24 hr 05/19/18 05/19/18 05/19/18 00:13 05:15 05:30 WBC RBC Hgb Hct MCV MCH MCHC RDW Plt Count MPV Neut % (Auto) Lymph % (Auto) Andrew % (Auto) Eos % (Auto) Baso % (Auto) Neut # (Auto) Lymph # (Auto) Andrew # (Auto) Eos # (Auto) Baso # (Auto) Neutrophils % (Manual) Band Neutrophils % Lymphocytes % (Manual) Monocytes % (Manual) Platelet Estimate Polychromasia Hypochromasia (manual) Anisocytosis (manual) Macrocytosis (manual) Ovalocytes Puncture Site Lr pCO2 42 pO2 122 H HCO3 24.7 ABG pH 7.38 ABG Total CO2 26.1 ABG O2 Saturation 97.3 ABG Base Excess -0.4 Nicolás Test Pos ABG Potassium 3.1 L A-a O2 Difference 146.0 Respiratory Index 1.2 Sodium 138.0 Chloride 106.0 Glucose 137 H Lactate 1.6 Vent Mode Prvc Mechanical Rate 18 FiO2 45.0 Tidal Volume 400 PEEP 5 Potassium Carbon Dioxide Anion Gap BUN Creatinine Est GFR ( Amer) Est GFR (Non-Af Amer) POC Glucose (mg/dL) 138 H 146 H Random Glucose Calcium Phosphorus Magnesium Total Bilirubin AST ALT Alkaline Phosphatase Total Protein Albumin Globulin Albumin/Globulin Ratio Arterial Blood Potassium 3.1 L Vancomycin Trough Mycoplasma pneumon IgM 05/19/18 05/19/18 05/19/18 05:55 05:55 05:55 WBC RBC Hgb Hct MCV MCH MCHC RDW Plt Count MPV Neut % (Auto) Lymph % (Auto) Andrew % (Auto) Eos % (Auto) Baso % (Auto) Neut # (Auto) Lymph # (Auto) Andrew # (Auto) Eos # (Auto) Baso # (Auto) Neutrophils % (Manual) Band Neutrophils % Lymphocytes % (Manual) Monocytes % (Manual) Platelet Estimate Polychromasia Hypochromasia (manual) Anisocytosis (manual) Macrocytosis (manual) Ovalocytes Puncture Site pCO2 pO2 HCO3 ABG pH ABG Total CO2 ABG O2 Saturation ABG Base Excess Nicolás Test ABG Potassium A-a O2 Difference Respiratory Index Sodium 135 Chloride 100 Glucose Lactate Vent Mode Mechanical Rate FiO2 Tidal Volume PEEP Potassium 3.3 L Carbon Dioxide 26 Anion Gap 13 BUN 39 H Creatinine 2.6 H Est GFR ( Amer) 22 Est GFR (Non-Af Amer) 18 POC Glucose (mg/dL) Random Glucose 131 H D Calcium 8.0 L Phosphorus 3.2 Magnesium 1.9 Total Bilirubin 1.3 AST 37 H ALT 26 Alkaline Phosphatase 102 Total Protein 4.6 L Albumin 2.3 L Globulin 2.3 Albumin/Globulin Ratio 1.0 Arterial Blood Potassium Vancomycin Trough 32.9 H Mycoplasma pneumon IgM 05/19/18 05/19/18 05/19/18 06:00 11:25 11:56 WBC 28.3 H D RBC 2.30 L Hgb 7.6 L Hct 23.6 L MCV 102.7 H MCH 33.2 H MCHC 32.3 L RDW 16.7 H Plt Count 45 L MPV 12.1 H Neut % (Auto) 94.6 H Lymph % (Auto) 2.0 L Andrew % (Auto) 2.9 Eos % (Auto) 0.4 Baso % (Auto) 0.1 Neut # (Auto) 26.8 H Lymph # (Auto) 0.6 L Andrew # (Auto) 0.8 Eos # (Auto) 0.1 Baso # (Auto) 0.0 Neutrophils % (Manual) 60 Band Neutrophils % 31 H* Lymphocytes % (Manual) 1 L Monocytes % (Manual) 8 Platelet Estimate Decreased L Polychromasia Slight Hypochromasia (manual) Slight Anisocytosis (manual) Slight Macrocytosis (manual) Slight Ovalocytes Slight Puncture Site pCO2 pO2 HCO3 ABG pH ABG Total CO2 ABG O2 Saturation ABG Base Excess Nicolás Test ABG Potassium A-a O2 Difference Respiratory Index Sodium Chloride Glucose Lactate Vent Mode Mechanical Rate FiO2 Tidal Volume PEEP Potassium Carbon Dioxide Anion Gap BUN Creatinine Est GFR ( Amer) Est GFR (Non-Af Amer) POC Glucose (mg/dL) 178 H Random Glucose Calcium Phosphorus Magnesium Total Bilirubin AST ALT Alkaline Phosphatase Total Protein Albumin Globulin Albumin/Globulin Ratio Arterial Blood Potassium Vancomycin Trough Mycoplasma pneumon IgM Negative Radiology Impressions: Radiology Impressions Chest X-Ray 05/19/18 06:00 IMPRESSION: Lines and tubes in stable position. Persistent consolidative opacification in the left mid to lower lung zone with mildly increased patchy consolidative changes in the right lung. Cardiomegaly. Ankle X-Ray 05/19/18 14:23 IMPRESSION: No evidence of acute displaced fracture nor dislocation. No obvious cortical destructive changes. Diffuse soft tissue swelling and infiltration consistent with cellulitis however no evidence of subcutaneous emphysema is identified. Foot X-Ray 05/19/18 14:23 IMPRESSION: No gas-forming cellulitis. Soft tissue diffuse swelling-compatible with lymphedema and/or cellulitis. No periosteal reaction to suggest osteomyelitis noted. No gross osseous destruction appreciated . Generalized osteopenia and mild diffuse degenerative changes as above. Tibia/Fibula X-Ray 05/19/18 14:23 IMPRESSION: No evidence of acute displaced fracture nor dislocation. No cortical destructive destruction however there does appear to be mild cortical thickening changes involving the mid lateral fibula that could be reactive although early osteomyelitis not completely excluded. Consider follow-up bone scan or MRI. Attending/Attestation - Attestation I have personally seen and examined this patient.: Yes I have fully participated in the care of the patient.: Yes I have reviewed all pertinent clinical information: Yes Notes (Text): 05/19/18 17:14 Patient seen and examined in the intensive care unit. Case discussed with housestaff in the morning rounds. Remained intubated on ventilatory support tolerating CPAP since morning Continue antibiotics Monitor culture and sensitivity Discontinue [place] catheter Continue hemodialysis
[2018-05-19] MEDS: Acetaminophen 650mg/20.3ml solution UD PO PRN ×2 (07:38→16:08)
[2018-05-19] MEDS: Aztreonam 1 GM in Sodium Chloride 0.9% 100 ML IVPB SCH ×2 (07:58→20:41)
[2018-05-19] MEDS: Multivitamin Vitamin B Complex (Nephro-Vite) Tab PO SCH (08:16)
[2018-05-19 08:20] LABS: ANISOCYTOSIS SLIGHT; BANDS 31 % (0-2); HYPOCHROMIC SLIGHT; LYMPHOCYTE 1 % (20-40); MONOCYTE 8 % (0-10); NEUTROPHIL 60 % (50-75); PLATELET ESTIMATE DECREASED (NORMAL); TOTAL CELLS COUNTED 100
[2018-05-19 08:21] LABS: OVALOCYTES SLIGHT; POLYCHROMIC SLIGHT
--- NOTE | 2018-05-19 10:29 | RAD ---
Date of service: 05/19/2018 HISTORY: eval interval change COMPARISON: 05/18/2018 FINDINGS: LUNGS: Lines and tubes in stable position. Persistent consolidative opacification in the left mid to lower lung zone with mildly increased patchy consolidative changes in the right lung. PLEURA: As above. CARDIOVASCULAR: Aortic atherosclerotic calcification present. Cardiomegaly. OSSEOUS STRUCTURES: No significant abnormalities. VISUALIZED UPPER ABDOMEN: Normal. OTHER FINDINGS: None. IMPRESSION: Lines and tubes in stable position. Persistent consolidative opacification in the left mid to lower lung zone with mildly increased patchy consolidative changes in the right lung. Cardiomegaly.
--- NOTE | 2018-05-19 12:12 | CP.PCM.PN ---
Subjective - Date & Time of Evaluation Date of Evaluation: 05/19/18 Time of Evaluation: 12:11 - Subjective Subjective: Nephrology Follow up Note HPI: 72-year-old female with a history of CHF, CAD, hypertension, hyperlipidemia, history of thyroid disease and renal disease, patient admitted to the hospital with a complaining of left lower extremity pain swelling of one day duration along with fever, followed by code sepsis, hypotension leading to resp distress and current intubation. Hx is obtained from charts. currrently intubated on pressors unknown baseline kidney disease, cr is now 3.1 UOP 10-15 cc per hour. on iv fluids and pressors Past medical history: Had a history of congestive heart failure, coronary artery disease, diabetes, hypertension, hypothyroidism, renal insufficiency. Patient has allergic to penicillin Surgical history include coronary artery bypass grafting x2 Social history: No smoking or drinking history noted Family history significant for diabetes and heart disease Medications at this time not available. 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 On ventilator. FiO2 45% PEEP 5 Chest bilateral air entry but with basal rales + Heart sounds are regular Abdomen soft nontender. edema ++ awake but bit agitated Left lower extremity erythema, blisters, and swelling noted Assesment: critical oligoanuric ARRON likely ATN/septic shock with cellulitis and ? 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 Avoid hypotension. Patient not on ACEI/ARB due to recent ARRON Monitor Input/Output, daily weights and renal function with basic metabolic panel anemia management per primary team. will add Iron, MVI. PRBC as needed. epogen ordered supplement Vit D dose vanco by level. dose of KCl 20 meq today Dose meds/antibiotics for reduced GFR. Avoid fleets enema/magnesium based laxatives. Avoid nephrotoxins/NSAIDs/ iodinated contrast (unless needed emergently) Glycemic control Further work up/management as per primary team Thanks for allowing me to participate in care of your patient. Will follow patient with you. Please call if any Qs. had d/w team Dr Edin Castro Office: [phone] Objective - Vital Signs/Intake and Output Vital Signs (last 24 hours): Temp Pulse Resp BP Pulse Ox 100.3 F H 64 13 86/39 L 98 05/19/18 08:38 05/19/18 11:40 05/19/18 11:40 05/19/18 11:40 05/19/18 11:40 Intake and Output: 05/19/18 05/19/18 06:59 18:59 Intake Total 888.2 91.9 Output Total 20 Balance 868.2 91.9 - Medications Medications: Current Medications Acetaminophen (Tylenol 650mg/20.3ml Solution Ud) 650 mg PO Q6 PRN PRN Reason: Fever >100.4 F or Pain Last Admin: 05/19/18 07:38 Dose: 650 mg Dextrose (Dextrose 50% Inj) 0 ml IV STAT PRN; Protocol PRN Reason: Hypoglycemia Protocol Last Admin: 05/18/18 18:17 Dose: 50 ml Dextrose (Glutose 15) 0 gm PO ONCE PRN; Protocol PRN Reason: Hypoglycemia Protocol Epoetin Anthony (Procrit) 8,000 unit SC MWF [facility] Last Admin: 05/18/18 13:52 Dose: 8,000 unit Ergocalciferol (Drisdol 50,000 Intl Units Cap) 1 cap PO Q7D [facility] Last Admin: 05/18/18 13:24 Dose: 1 cap Ferrous Gluconate (Fergon) 324 mg PO TID [facility] Last Admin: 05/19/18 09:18 Dose: 324 mg Glucagon (Glucagen Diagnostic Kit) 0 mg IM STAT PRN; Protocol PRN Reason: Hypoglycemia Protocol Heparin Sodium (Porcine) (Heparin) 5,000 units SC Q12H [facility] Last Admin: 05/19/18 05:17 Dose: 5,000 units Vancomycin/Sodium Chloride (Vancomycin 1 Gm/Ns 200 Ml) 1 gm in 200 mls @ 133 mls/hr IVPB Q24H [facility]; Protocol Stop: 05/21/18 10:01 Last Admin: 05/18/18 12:38 Dose: 133 mls/hr Dexmedetomidine HCl 200 mcg/ (Sodium Chloride) 50 mls @ 3.4 mls/hr IV TITR PRN; Protocol PRN Reason: Sedation Last Admin: 05/19/18 10:44 Dose: 0.6 mcg/kg/hr, 10.21 mls/hr Norepinephrine Bitartrate 8 mg (/ Sodium Chloride) 258 mls @ 7.74 mls/hr IV .Q24H PRN; Protocol PRN Reason: TITRATE PER MD ORDER Last Admin: 05/18/18 19:48 Dose: 1 mcg/min, 1.94 mls/hr Dextrose (Dextrose 5% In Water 1000 Ml) 1,000 mls @ 0 mls/hr IV .Q0M PRN; Protocol PRN Reason: Hypoglycemia Protocol Aztreonam 1 gm/ Sodium (Chloride) 100 mls @ 100 mls/hr IVPB Q12H [facility]; Protocol Last Admin: 05/19/18 07:58 Dose: 100 mls/hr Clindamycin Phosphate 600 mg/ (Sodium Chloride) 54 mls @ 100 mls/hr IVPB Q8H [facility]; Protocol Last Admin: 05/19/18 05:17 Dose: 100 mls/hr Insulin Aspart (Novolog) 0 unit SC Q6 [facility]; Protocol Last Admin: 05/19/18 11:45 Dose: 2 units Pantoprazole Sodium (Protonix Inj) 40 mg IVP DAILY [facility] Last Admin: 05/19/18 09:18 Dose: 40 mg Vitamin B Complex/Vit C/Folic Acid (Nephro-Pancho) 1 tab PO 0800 [facility] Last Admin: 05/19/18 08:16 Dose: 1 tab - Labs Labs: 05/19/18 06:00 05/19/18 05:55 PT 19.8 SECONDS (9.7-12.2) H 05/17/18 06:09 INR 1.8 05/17/18 06:09 APTT 40 SECONDS (21-34) H D 05/17/18 06:09
[2018-05-19] MEDS ORDERED: Potassium Chloride 20 mEq/15 ml LIQ UD NG ONE (12:15)
--- NOTE | 2018-05-19 15:01 | RAD ---
Date of service: 05/19/2018 PROCEDURE: Left Ankle Radiographs. HISTORY: Rule out gas COMPARISON: None available. TECHNIQUE: 3 views obtained. FINDINGS: BONES: No evidence of acute displaced fracture nor dislocation. Osseous structures appear intact. A no obvious cortical destructive changes. JOINTS: Ankle mortise maintained. No significant osteoarthritis SOFT TISSUES: Diffuse soft tissue swelling and infiltration changes lateral greater than medial consistent with this patient's history of cellulitis. No evidence of subcutaneous emphysema OTHER FINDINGS: None. IMPRESSION: No evidence of acute displaced fracture nor dislocation. No obvious cortical destructive changes. Diffuse soft tissue swelling and infiltration consistent with cellulitis however no evidence of subcutaneous emphysema is identified.
--- NOTE | 2018-05-19 15:08 | RAD ---
Date of service: 05/19/2018 PROCEDURE: Radiographs of the left tibia and fibula. HISTORY: Rule out gas COMPARISON: None available. TECHNIQUE: Frontal and lateral views obtained. 2 views obtained. FINDINGS: BONES: There are no acute displaced fractures nor dislocations.. No evidence of cortical destruction however there are mild cortical thickening changes in the mid aspect of the lateral fibula. Findings could be reactive however early osteomyelitis not excluded.. Consider follow-up bone scan or MRI. JOINT SPACES: Unremarkable. OTHER FINDINGS: Diffuse soft tissue swelling and infiltration subcutaneous tissues consistent with cellulitis. No evidence of subcutaneous emphysema. Metallic clips seen in the medial soft tissues at the level of the knee and proximal tibia likely due to prior saphenous vein harvest. IMPRESSION: No evidence of acute displaced fracture nor dislocation. No cortical destructive destruction however there does appear to be mild cortical thickening changes involving the mid lateral fibula that could be reactive although early osteomyelitis not completely excluded. Consider follow-up bone scan or MRI.
--- NOTE | 2018-05-19 15:24 | CP.PCM.CON ---
<Abbe Vásquez - Last Filed: 05/19/18 15:20> History of Present Illness - History of Present Illness History of Present Illness: Podiatry Consult Note for Dr. Zhu 72F with PMH CAD, CHF, Diabetes, HTN seen intubated in ICU for b/l leg swelling and bullae. History obtained from charts. Multipodus boots noted to be in place at this time. Patient is + sepsis, + UTI. Patient originally came in to hospital complaining of left leg pain. Venous ultrasound is negative for DVT. Review of Systems - Review of Systems All systems: reviewed and no additional remarkable complaints except Review of Systems: as per HPI Past Patient History - Past Medical History & Family History Past Medical History?: Yes - Past Social History Smoking Status: Never Smoked - CARDIAC Hx Congestive Heart Failure: Yes Hx Hypertension: Yes - ENDOCRINE/METABOLIC Hx Endocrine Disorders: Yes Hx Diabetes Mellitus Type 2: Yes - MUSCULOSKELETAL/RHEUMATOLOGICAL Hx Falls: Yes - PSYCHIATRIC Hx Substance Use: No - SURGICAL HISTORY Hx Coronary Artery Bypass Graft: Yes - ANESTHESIA Hx Anesthesia: Yes Has any member of the family had a problem w/ anesthesia?: No Meds Allergies/Adverse Reactions: Allergies Allergy/AdvReac Type Severity Reaction Status Date / Time Penicillins Allergy Verified 05/15/18 11:34 - Medications Medications: Current Medications Acetaminophen (Tylenol 650mg/20.3ml Solution Ud) 650 mg PO Q6 PRN PRN Reason: Fever >100.4 F or Pain Last Admin: 05/19/18 07:38 Dose: 650 mg Dextrose (Dextrose 50% Inj) 0 ml IV STAT PRN; Protocol PRN Reason: Hypoglycemia Protocol Last Admin: 05/18/18 18:17 Dose: 50 ml Dextrose (Glutose 15) 0 gm PO ONCE PRN; Protocol PRN Reason: Hypoglycemia Protocol Epoetin Anthony (Procrit) 8,000 unit SC MWF [facility] Last Admin: 05/18/18 13:52 Dose: 8,000 unit Ergocalciferol (Drisdol 50,000 Intl Units Cap) 1 cap PO Q7D [facility] Last Admin: 05/18/18 13:24 Dose: 1 cap Ferrous Gluconate (Fergon) 324 mg PO TID [facility] Last Admin: 05/19/18 14:04 Dose: 324 mg Glucagon (Glucagen Diagnostic Kit) 0 mg IM STAT PRN; Protocol PRN Reason: Hypoglycemia Protocol Heparin Sodium (Porcine) (Heparin) 5,000 units SC Q12H [facility] Last Admin: 05/19/18 05:17 Dose: 5,000 units Dexmedetomidine HCl 200 mcg/ (Sodium Chloride) 50 mls @ 3.4 mls/hr IV TITR PRN; Protocol PRN Reason: Sedation Last Titration: 05/19/18 14:52 Dose: 0.5 mcg/kg/hr, 8.5 mls/hr Norepinephrine Bitartrate 8 mg (/ Sodium Chloride) 258 mls @ 7.74 mls/hr IV .Q24H PRN; Protocol PRN Reason: TITRATE PER MD ORDER Last Titration: 05/19/18 14:50 Dose: 2 mcg/min, 3.87 mls/hr Dextrose (Dextrose 5% In Water 1000 Ml) 1,000 mls @ 0 mls/hr IV .Q0M PRN; Protocol PRN Reason: Hypoglycemia Protocol Aztreonam 1 gm/ Sodium (Chloride) 100 mls @ 100 mls/hr IVPB Q12H [facility]; Protocol Last Admin: 05/19/18 07:58 Dose: 100 mls/hr Clindamycin Phosphate 600 mg/ (Sodium Chloride) 54 mls @ 100 mls/hr IVPB Q8H [facility]; Protocol Last Admin: 05/19/18 14:03 Dose: 100 mls/hr Vancomycin/Sodium Chloride (Vancomycin 1 Gm/Ns 200 Ml) 1 gm in 200 mls @ 133.333 mls/hr IVPB MWF [facility]; Protocol Stop: 05/25/18 09:01 Insulin Aspart (Novolog) 0 unit SC Q6 [facility]; Protocol Last Admin: 05/19/18 11:45 Dose: 2 units Pantoprazole Sodium (Protonix Inj) 40 mg IVP DAILY [facility] Last Admin: 05/19/18 09:18 Dose: 40 mg Vitamin B Complex/Vit C/Folic Acid (Nephro-Pancho) 1 tab PO 0800 [facility] Last Admin: 05/19/18 08:16 Dose: 1 tab Physical Exam - Constitutional Appears: Chronically Ill - Extremities Exam Additional comments: LE focused exam: Vasc: DP/PT pulses non-palpable, CFT < 3 seconds to all digits, skin temperature warm to warm from proximal to distal WNL, no erythema present. Diffuse 2+ pitting edema noted to b/l LE Neuro: Unable to assess secondary to patient mental state and intubation Derm: No open lesions, wounds, maceration, xerosis, or abnormal pigmentation noted. Three bullae noted to left leg, two lateral and one medial. Bullae are tense and yellow in color. Do not appear to be hemmorhagic at this time. MSK: No gross deformities noted. Unable to assess ROM or MMT at this time - Neurological Exam Neurological exam: Altered Results - Vital Signs Recent Vital Signs: Last Vital Signs Temp 100.3 F H 05/19/18 08:38 Pulse 64 05/19/18 11:40 Resp 13 05/19/18 11:40 BP 86/39 L 05/19/18 11:40 Pulse Ox 98 05/19/18 11:40 - Labs Result Diagrams: 05/19/18 06:00 05/19/18 05:55 Labs: Laboratory Results - last 24 hr 05/19/18 05/19/18 05/19/18 00:13 05:30 05:55 WBC RBC Hgb Hct MCV MCH MCHC RDW Plt Count MPV Neut % (Auto) Lymph % (Auto) Drew % (Auto) Eos % (Auto) Baso % (Auto) Neut # (Auto) Lymph # (Auto) Drew # (Auto) Eos # (Auto) Baso # (Auto) Neutrophils % (Manual) Band Neutrophils % Lymphocytes % (Manual) Monocytes % (Manual) Platelet Estimate Polychromasia Hypochromasia (manual) Anisocytosis (manual) Macrocytosis (manual) Ovalocytes Puncture Site Lr pCO2 42 pO2 122 H HCO3 24.7 ABG pH 7.38 ABG Total CO2 26.1 ABG O2 Saturation 97.3 ABG Base Excess -0.4 Nicolás Test Pos ABG Potassium 3.1 L A-a O2 Difference 146.0 Respiratory Index 1.2 Sodium 138.0 135 Chloride 106.0 100 Glucose 137 H Lactate 1.6 Vent Mode Prvc Mechanical Rate 18 FiO2 45.0 Tidal Volume 400 PEEP 5 Potassium 3.3 L Carbon Dioxide 26 Anion Gap 13 BUN 39 H Creatinine 2.6 H Est GFR ( Amer) 22 Est GFR (Non-Af Amer) 18 POC Glucose (mg/dL) 138 H Random Glucose 131 H D Calcium 8.0 L Phosphorus Magnesium Total Bilirubin 1.3 AST 37 H ALT 26 Alkaline Phosphatase 102 Total Protein 4.6 L Albumin 2.3 L Globulin 2.3 Albumin/Globulin Ratio 1.0 Arterial Blood Potassium 3.1 L Vancomycin Trough 05/19/18 05/19/18 05/19/18 05:55 05:55 06:00 WBC 28.3 H D RBC 2.30 L Hgb 7.6 L Hct 23.6 L MCV 102.7 H MCH 33.2 H MCHC 32.3 L RDW 16.7 H Plt Count 45 L MPV 12.1 H Neut % (Auto) 94.6 H Lymph % (Auto) 2.0 L Drew % (Auto) 2.9 Eos % (Auto) 0.4 Baso % (Auto) 0.1 Neut # (Auto) 26.8 H Lymph # (Auto) 0.6 L Drew # (Auto) 0.8 Eos # (Auto) 0.1 Baso # (Auto) 0.0 Neutrophils % (Manual) 60 Band Neutrophils % 31 H* Lymphocytes % (Manual) 1 L Monocytes % (Manual) 8 Platelet Estimate Decreased L Polychromasia Slight Hypochromasia (manual) Slight Anisocytosis (manual) Slight Macrocytosis (manual) Slight Ovalocytes Slight Puncture Site pCO2 pO2 HCO3 ABG pH ABG Total CO2 ABG O2 Saturation ABG Base Excess Nicolás Test ABG Potassium A-a O2 Difference Respiratory Index Sodium Chloride Glucose Lactate Vent Mode Mechanical Rate FiO2 Tidal Volume PEEP Potassium Carbon Dioxide Anion Gap BUN Creatinine Est GFR ( Amer) Est GFR (Non-Af Amer) POC Glucose (mg/dL) Random Glucose Calcium Phosphorus 3.2 Magnesium 1.9 Total Bilirubin AST ALT Alkaline Phosphatase Total Protein Albumin Globulin Albumin/Globulin Ratio Arterial Blood Potassium Vancomycin Trough 32.9 H Assessment & Plan - Assessment and Plan (Free Text) Assessment: 72F seen for b/l LE edema with bullae formation to left leg Plan: Patient seen and evaluated Plan discussed with Dr. Zhu WBC 28.3 Continue abx Blood cx: Group C Strep Urine cx: E. coli Foot, ankle and tib/fib xrays show no evidence of soft tissue emphysema. Evidence of subcutaneous edema and cellulitis appreciated No dressings applied at this time Multipodus boots kept in place No plan for surgical intervention at this time Podiatry will continue to follow while patient in house - Date & Time Date: 05/19/18 Time: 15:40 <Jaciel Zhu - Last Filed: 05/20/18 10:22> Meds - Medications Medications: Current Medications Acetaminophen (Tylenol 650mg/20.3ml Solution Ud) 650 mg PO Q6 PRN PRN Reason: Fever >100.4 F or Pain Last Admin: 05/20/18 08:13 Dose: 650 mg Dextrose (Dextrose 50% Inj) 0 ml IV STAT PRN; Protocol PRN Reason: Hypoglycemia Protocol Last Admin: 05/18/18 18:17 Dose: 50 ml Dextrose (Glutose 15) 0 gm PO ONCE PRN; Protocol PRN Reason: Hypoglycemia Protocol Epoetin Anthony (Procrit) 10,[address] [facility] Ergocalciferol (Drisdol 50,000 Intl Units Cap) 1 cap PO Q7D [facility] Last Admin: 05/18/18 13:24 Dose: 1 cap Ferrous Gluconate (Fergon) 324 mg PO TID [facility] Last Admin: 05/20/18 09:13 Dose: 324 mg Glucagon (Glucagen Diagnostic Kit) 0 mg IM STAT PRN; Protocol PRN Reason: Hypoglycemia Protocol Heparin Sodium (Porcine) (Heparin) 5,000 units SC Q12H [facility] Last Admin: 05/19/18 05:17 Dose: 5,000 units Dexmedetomidine HCl 200 mcg/ (Sodium Chloride) 50 mls @ 3.4 mls/hr IV TITR PRN; Protocol PRN Reason: Sedation Last Admin: 05/20/18 04:25 Dose: 0.5 mcg/kg/hr, 8.5 mls/hr Norepinephrine Bitartrate 8 mg (/ Sodium Chloride) 258 mls @ 7.74 mls/hr IV .Q24H PRN; Protocol PRN Reason: TITRATE PER MD ORDER Last Titration: 05/20/18 09:22 Dose: 1 mcg/min, 1.94 mls/hr Dextrose (Dextrose 5% In Water 1000 Ml) 1,000 mls @ 0 mls/hr IV .Q0M PRN; Protocol PRN Reason: Hypoglycemia Protocol Aztreonam 1 gm/ Sodium (Chloride) 100 mls @ 100 mls/hr IVPB Q12H [facility]; Protocol Last Admin: 05/20/18 07:48 Dose: 100 mls/hr Clindamycin Phosphate 600 mg/ (Sodium Chloride) 54 mls @ 100 mls/hr IVPB Q8H [facility]; Protocol Last Admin: 05/20/18 05:09 Dose: 100 mls/hr Vancomycin/Sodium Chloride (Vancomycin 1 Gm/Ns 200 Ml) 1 gm in 200 mls @ 133.333 mls/hr IVPB MWF [facility]; Protocol Stop: 05/25/18 09:01 Insulin Aspart (Novolog) 0 unit SC Q6 [facility]; Protocol Last Admin: 05/20/18 06:04 Dose: Not Given Pantoprazole Sodium (Protonix Inj) 40 mg IVP DAILY [facility] Last Admin: 05/20/18 09:13 Dose: 40 mg Vitamin B Complex/Vit C/Folic Acid (Nephro-Pancho) 1 tab PO 0800 [facility] Last Admin: 05/20/18 07:48 Dose: 1 tab Results - Vital Signs Recent Vital Signs: Last Vital Signs Temp 100.4 F H 05/20/18 09:13 Pulse 86 05/20/18 09:00 Resp 17 05/20/18 09:00 BP 124/55 L 05/20/18 08:54 Pulse Ox 100 05/20/18 09:00 - Labs Result Diagrams: 05/20/18 05:47 05/20/18 05:47 Labs: Laboratory Results - last 24 hr 05/19/18 05/19/18 05/19/18 05:15 11:25 11:56 WBC RBC Hgb Hct MCV MCH MCHC RDW Plt Count MPV Neut % (Auto) Lymph % (Auto) Drew % (Auto) Eos % (Auto) Baso % (Auto) Neut # (Auto) Lymph # (Auto) Drew # (Auto) Eos # (Auto) Baso # (Auto) Neutrophils % (Manual) Band Neutrophils % Lymphocytes % (Manual) Monocytes % (Manual) Platelet Estimate Polychromasia Hypochromasia (manual) Anisocytosis (manual) Macrocytosis (manual) Puncture Site pCO2 pO2 HCO3 ABG pH ABG Total CO2 ABG O2 Saturation ABG Base Excess Nicolás Test ABG Potassium A-a O2 Difference Respiratory Index Sodium Chloride Glucose Lactate Vent Mode Mechanical Rate FiO2 Tidal Volume PEEP Potassium Carbon Dioxide Anion Gap BUN Creatinine Est GFR ( Amer) Est GFR (Non-Af Amer) POC Glucose (mg/dL) 146 H 178 H Random Glucose Calcium Phosphorus Magnesium Total Bilirubin AST ALT Alkaline Phosphatase Total Protein Albumin Globulin Albumin/Globulin Ratio Arterial Blood Potassium Mycoplasma pneumon IgM Negative 05/19/18 05/20/18 05/20/18 17:49 00:10 05:05 WBC RBC Hgb Hct MCV MCH MCHC RDW Plt Count MPV Neut % (Auto) Lymph % (Auto) Drew % (Auto) Eos % (Auto) Baso % (Auto) Neut # (Auto) Lymph # (Auto) Drew # (Auto) Eos # (Auto) Baso # (Auto) Neutrophils % (Manual) Band Neutrophils % Lymphocytes % (Manual) Monocytes % (Manual) Platelet Estimate Polychromasia Hypochromasia (manual) Anisocytosis (manual) Macrocytosis (manual) Puncture Site pCO2 pO2 HCO3 ABG pH ABG Total CO2 ABG O2 Saturation ABG Base Excess Nicolás Test ABG Potassium A-a O2 Difference Respiratory Index Sodium Chloride Glucose Lactate Vent Mode Mechanical Rate FiO2 Tidal Volume PEEP Potassium Carbon Dioxide Anion Gap BUN Creatinine Est GFR ( Amer) Est GFR (Non-Af Amer) POC Glucose (mg/dL) 178 H 141 H 136 H Random Glucose Calcium Phosphorus Magnesium Total Bilirubin AST ALT Alkaline Phosphatase Total Protein Albumin Globulin Albumin/Globulin Ratio Arterial Blood Potassium Mycoplasma pneumon IgM 05/20/18 05/20/18 05/20/18 05:14 05:47 05:47 WBC 31.1 H RBC 2.40 L Hgb 7.9 L Hct 24.6 L MCV 102.3 H MCH 32.7 H MCHC 32.0 L RDW 16.6 H Plt Count 47 L MPV 11.1 Neut % (Auto) 95.0 H Lymph % (Auto) 2.3 L Drew % (Auto) 2.5 Eos % (Auto) 0.1 Baso % (Auto) 0.1 Neut # (Auto) 29.6 H Lymph # (Auto) 0.7 L Drew # (Auto) 0.8 Eos # (Auto) 0.0 Baso # (Auto) 0.0 Neutrophils % (Manual) 86 H Band Neutrophils % 12 H* Lymphocytes % (Manual) TEST NOT PERFORMED Monocytes % (Manual) 2 Platelet Estimate Decreased L Polychromasia Slight Hypochromasia (manual) Slight Anisocytosis (manual) Slight Macrocytosis (manual) Slight Puncture Site L rad pCO2 40 pO2 128 H HCO3 26.0 ABG pH 7.42 ABG Total CO2 27.1 ABG O2 Saturation 96.9 ABG Base Excess 1.3 Nicolás Test Pos ABG Potassium 3.6 A-a O2 Difference 143.0 Respiratory Index 1.1 Sodium 140.0 136 Chloride 107.0 103 Glucose 98 Lactate 1.1 Vent Mode Prvc Mechanical Rate 18 FiO2 45.0 Tidal Volume 400 PEEP 5 Potassium 3.8 Carbon Dioxide 27 Anion Gap 11 BUN 51 H Creatinine 2.9 H Est GFR ( Amer) 19 Est GFR (Non-Af Amer) 16 POC Glucose (mg/dL) Random Glucose 100 D Calcium 7.9 L Phosphorus 3.5 Magnesium 2.1 Total Bilirubin 1.0 AST 36 ALT 24 Alkaline Phosphatase 148 H D Total Protein 4.9 L Albumin 2.5 L Globulin 2.4 Albumin/Globulin Ratio 1.1 Arterial Blood Potassium 3.6 Mycoplasma pneumon IgM Assessment & Plan - Assessment and Plan (Free Text) Plan: bullous lesions were drained using sterile 15 blade and c&s taken for evaluation ./Dr Zhu
--- NOTE | 2018-05-19 15:48 | RAD ---
Date of service: 05/19/2018 PROCEDURE: Left Foot Radiographs. HISTORY: r/o gas COMPARISON: None. TECHNIQUE: 3 views obtained. FINDINGS: BONES: No fracture appreciated. Osteopenia specially juxta-articular. No periosteal reaction appreciated. No cortical destruction appreciated. JOINTS: Diffuse arthrosis. SOFT TISSUES: Diffuse soft tissue swelling-nonspecific lymphedema and/or cellulitis. No gas-forming cellulitis. OTHER FINDINGS: Os peroneum. IMPRESSION: No gas-forming cellulitis. Soft tissue diffuse swelling-compatible with lymphedema and/or cellulitis. No periosteal reaction to suggest osteomyelitis noted. No gross osseous destruction appreciated . Generalized osteopenia and mild diffuse degenerative changes as above.
--- NOTE | 2018-05-19 22:50 | CP.PCM.PN ---
Subjective - Date & Time of Evaluation Date of Evaluation: 05/19/18 Time of Evaluation: 08:00 - Subjective Subjective: lethargic intubated NAD Objective - Vital Signs/Intake and Output Vital Signs (last 24 hours): Temp Pulse Resp BP Pulse Ox 100.3 F H 64 13 86/39 L 98 05/19/18 08:38 05/19/18 11:40 05/19/18 11:40 05/19/18 11:40 05/19/18 11:40 Intake and Output: 05/19/18 05/19/18 06:59 18:59 Intake Total 888.2 91.9 Output Total 20 Balance 868.2 91.9 - Medications Medications: Current Medications Acetaminophen (Tylenol 650mg/20.3ml Solution Ud) 650 mg PO Q6 PRN PRN Reason: Fever >100.4 F or Pain Last Admin: 05/19/18 07:38 Dose: 650 mg Dextrose (Dextrose 50% Inj) 0 ml IV STAT PRN; Protocol PRN Reason: Hypoglycemia Protocol Last Admin: 05/18/18 18:17 Dose: 50 ml Dextrose (Glutose 15) 0 gm PO ONCE PRN; Protocol PRN Reason: Hypoglycemia Protocol Epoetin Anthony (Procrit) 8,000 unit SC MWF [facility] Last Admin: 05/18/18 13:52 Dose: 8,000 unit Ergocalciferol (Drisdol 50,000 Intl Units Cap) 1 cap PO Q7D [facility] Last Admin: 05/18/18 13:24 Dose: 1 cap Ferrous Gluconate (Fergon) 324 mg PO TID [facility] Last Admin: 05/19/18 09:18 Dose: 324 mg Glucagon (Glucagen Diagnostic Kit) 0 mg IM STAT PRN; Protocol PRN Reason: Hypoglycemia Protocol Heparin Sodium (Porcine) (Heparin) 5,000 units SC Q12H [facility] Last Admin: 05/19/18 05:17 Dose: 5,000 units Vancomycin/Sodium Chloride (Vancomycin 1 Gm/Ns 200 Ml) 1 gm in 200 mls @ 133 mls/hr IVPB Q24H [facility]; Protocol Stop: 05/21/18 10:01 Last Admin: 05/18/18 12:38 Dose: 133 mls/hr Dexmedetomidine HCl 200 mcg/ (Sodium Chloride) 50 mls @ 3.4 mls/hr IV TITR PRN; Protocol PRN Reason: Sedation Last Admin: 05/19/18 10:44 Dose: 0.6 mcg/kg/hr, 10.21 mls/hr Norepinephrine Bitartrate 8 mg (/ Sodium Chloride) 258 mls @ 7.74 mls/hr IV .Q24H PRN; Protocol PRN Reason: TITRATE PER MD ORDER Last Admin: 05/18/18 19:48 Dose: 1 mcg/min, 1.94 mls/hr Dextrose (Dextrose 5% In Water 1000 Ml) 1,000 mls @ 0 mls/hr IV .Q0M PRN; Protocol PRN Reason: Hypoglycemia Protocol Aztreonam 1 gm/ Sodium (Chloride) 100 mls @ 100 mls/hr IVPB Q12H [facility]; Protocol Last Admin: 05/19/18 07:58 Dose: 100 mls/hr Clindamycin Phosphate 600 mg/ (Sodium Chloride) 54 mls @ 100 mls/hr IVPB Q8H [facility]; Protocol Last Admin: 05/19/18 05:17 Dose: 100 mls/hr Insulin Aspart (Novolog) 0 unit SC Q6 [facility]; Protocol Last Admin: 05/19/18 11:45 Dose: 2 units Pantoprazole Sodium (Protonix Inj) 40 mg IVP DAILY [facility] Last Admin: 05/19/18 09:18 Dose: 40 mg Vitamin B Complex/Vit C/Folic Acid (Nephro-Pancho) 1 tab PO 0800 [facility] Last Admin: 05/19/18 08:16 Dose: 1 tab - Labs Labs: 05/19/18 06:00 05/19/18 05:55 PT 19.8 SECONDS (9.7-12.2) H 05/17/18 06:09 INR 1.8 05/17/18 06:09 APTT 40 SECONDS (21-34) H D 05/17/18 06:09 - Constitutional Appears: Toxic, Confused - Head Exam Head Exam: NORMOCEPHALIC - Eye Exam Eye Exam: EOMI, Normal appearance, PERRL Pupil Exam: NORMAL ACCOMODATION, PERRL - ENT Exam ENT Exam: Mucous Membranes Moist, Normal Exam Additional comments: ETT + - Neck Exam Neck Exam: Full ROM, Normal Inspection. absent: Lymphadenopathy - Respiratory Exam Respiratory Exam: Clear to Ausculation Bilateral - Cardiovascular Exam Cardiovascular Exam: REGULAR RHYTHM, +S1, +S2. absent: Murmur - GI/Abdominal Exam GI & Abdominal Exam: Distended, Soft, Normal Bowel Sounds. absent: Tenderness - Rectal Exam Rectal Exam: Deferred - Exam Exam: NORMAL INSPECTION - Extremities Exam Extremities Exam: Full ROM, Normal Capillary Refill, Normal Inspection. absent: Joint Swelling, Pedal Edema - Back Exam Back Exam: NORMAL INSPECTION - Neurological Exam Neurological Exam: Alert, Awake, CN II-XII Intact, Normal Gait, Oriented x3 - Psychiatric Exam Psychiatric exam: Normal Affect, Normal Mood - Skin Skin Exam: Dry Additional comments: large bullous lesions LLE Assessment and Plan (1) Multi-organ system dysfunction Status: Acute (2) Septic shock Status: Acute (3) Cellulitis of left lower extremity Status: Acute (4) Coagulopathy Status: Acute (5) Pancytopenia Status: Acute (6) Sepsis Status: Acute (7) Respiratory failure requiring intubation Status: Acute (8) Respiratory failure with hypoxia and hypercapnia Assessment & Plan: septic shock/ resp failure/ bacteremia cont IV antibiotic consider echo may need surgical eval LLE Status: Acute (9) ARRON (acute kidney injury) Status: Acute
--- NOTE | 2018-05-20 02:10 | CP.PCM.PN ---
Subjective - Date & Time of Evaluation Date of Evaluation: 05/19/18 Time of Evaluation: 18:00 - Subjective Subjective: Vented, daughter at bedside. Objective - Vital Signs/Intake and Output Vital Signs (last 24 hours): Temp Pulse Resp BP Pulse Ox 98.2 F 74 17 113/44 L 100 05/20/18 00:00 05/20/18 01:00 05/20/18 01:00 05/20/18 00:54 05/20/18 01:00 Intake and Output: 05/19/18 05/20/18 18:59 06:59 Intake Total 600.4 363.9 Output Total 7 Balance 593.4 363.9 - Medications Medications: Current Medications Acetaminophen (Tylenol 650mg/20.3ml Solution Ud) 650 mg PO Q6 PRN PRN Reason: Fever >100.4 F or Pain Last Admin: 05/19/18 16:08 Dose: 650 mg Dextrose (Dextrose 50% Inj) 0 ml IV STAT PRN; Protocol PRN Reason: Hypoglycemia Protocol Last Admin: 05/18/18 18:17 Dose: 50 ml Dextrose (Glutose 15) 0 gm PO ONCE PRN; Protocol PRN Reason: Hypoglycemia Protocol Epoetin Anthony (Procrit) 8,000 unit SC MWF [facility] Last Admin: 05/18/18 13:52 Dose: 8,000 unit Ergocalciferol (Drisdol 50,000 Intl Units Cap) 1 cap PO Q7D [facility] Last Admin: 05/18/18 13:24 Dose: 1 cap Ferrous Gluconate (Fergon) 324 mg PO TID [facility] Last Admin: 05/19/18 17:24 Dose: 324 mg Glucagon (Glucagen Diagnostic Kit) 0 mg IM STAT PRN; Protocol PRN Reason: Hypoglycemia Protocol Heparin Sodium (Porcine) (Heparin) 5,000 units SC Q12H [facility] Last Admin: 05/19/18 05:17 Dose: 5,000 units Dexmedetomidine HCl 200 mcg/ (Sodium Chloride) 50 mls @ 3.4 mls/hr IV TITR PRN; Protocol PRN Reason: Sedation Last Admin: 05/19/18 23:03 Dose: 0.5 mcg/kg/hr, 8.5 mls/hr Norepinephrine Bitartrate 8 mg (/ Sodium Chloride) 258 mls @ 7.74 mls/hr IV .Q24H [facility]N; Protocol PRN Reason: TITRATE PER MD ORDER Last Titration: 05/19/18 20:00 Dose: 2 mcg/min, 3.87 mls/hr Dextrose (Dextrose 5% In Water 1000 Ml) 1,000 mls @ 0 mls/hr IV .Q0M PRN; Protocol PRN Reason: Hypoglycemia Protocol Aztreonam 1 gm/ Sodium (Chloride) 100 mls @ 100 mls/hr IVPB Q12H [facility]; Protocol Last Admin: 05/19/18 20:41 Dose: 100 mls/hr Clindamycin Phosphate 600 mg/ (Sodium Chloride) 54 mls @ 100 mls/hr IVPB Q8H [facility]; Protocol Last Admin: 05/19/18 21:36 Dose: 100 mls/hr Vancomycin/Sodium Chloride (Vancomycin 1 Gm/Ns 200 Ml) 1 gm in 200 mls @ 133.333 mls/hr IVPB MWF [facility]; Protocol Stop: 05/25/18 09:01 Insulin Aspart (Novolog) 0 unit SC Q6 [facility]; Protocol Last Admin: 05/19/18 17:57 Dose: 2 units Pantoprazole Sodium (Protonix Inj) 40 mg IVP DAILY [facility] Last Admin: 05/19/18 09:18 Dose: 40 mg Vitamin B Complex/Vit C/Folic Acid (Nephro-Pancho) 1 tab PO 0800 [facility] Last Admin: 05/19/18 08:16 Dose: 1 tab - Labs Labs: 05/19/18 06:00 05/19/18 05:55 PT 19.8 SECONDS (9.7-12.2) H 05/17/18 06:09 INR 1.8 05/17/18 06:09 APTT 40 SECONDS (21-34) H D 05/17/18 06:09 - Head Exam Head Exam: ATRAUMATIC - Eye Exam Eye Exam: Normal appearance - ENT Exam ENT Exam: Mucous Membranes Dry - Respiratory Exam Respiratory Exam: NORMAL BREATHING PATTERN - Cardiovascular Exam Cardiovascular Exam: +S1, +S2 - GI/Abdominal Exam GI & Abdominal Exam: Normal Bowel Sounds Assessment and Plan (1) Thrombocytopenia Assessment & Plan: sepsis cont. to monitor Status: Acute (2) Coagulopathy Assessment & Plan: sepsis nutritional repeat fibrinogen Status: Acute (3) Anemia Assessment & Plan: chronic disease and renal disease DAVID per renal transfusion support PRN Status: Acute
[2018-05-20] MEDS: Dexmedetomidine Hydrochloride 200 MCG in Sodium Chloride 0.9% 48 ML IV PRN ×4 (04:25→23:25)
[2018-05-20 05:22] LABS: ABG ALLEN TEST POS; ARTERIAL BLOOD GAS O2 SAT 96.9 % (95-98); ARTERIAL BLOOD GAS PCO2 40 mm/Hg (35-45); ARTERIAL BLOOD GAS PH 7.42 (7.35-7.45); ARTERIAL BLOOD GAS PO2 128 mm/Hg (80-100); ARTERIAL BLOOD GAS TCO2 27.1 mmol/L (22-28)
[2018-05-20 05:53] LABS: BASO % 0.1 % (0.0-2.0); EOS % 0.1 % (0.0-4.0); HEMOGLOBIN 7.9 g/dL (11.0-16.0); LYMPH # 0.7 K/uL (1.0-4.3); LYMPH % 2.3 % (20.0-40.0); MEAN CELL VOLUME 102.3 fL (81.0-99.0); MEAN CORPUSCULAR HEMOGLOBIN 32.7 pg (27.0-31.0); MEAN PLATELET VOLUME 11.1 fL (7.2-11.7); MONO # 0.8 K/uL (0.0-0.8); MONO % 2.5 % (0.0-10.0); NEUT # 29.6 K/uL (1.8-7.0); NRBC % 0.1 % (0.0-2.0); PLATELET COUNT 47 K/uL (130-400); RED CELL DISTRIBUTION WIDTH 16.6 % (11.5-14.5); WHITE BLOOD COUNT 31.1 K/uL (4.8-10.8)
[2018-05-20] MEDS: (Novolog) Insulin Aspart, Recombinant 100 u/ml 10 ml vial SC SCH ×5 (06:04→23:55)
[2018-05-20 06:17] LABS: ALB/GLOB RATIO 1.1 (1.0-2.1); ALBUMIN 2.5 g/dL (3.5-5.0); CALCIUM 7.9 mg/dl (8.6-10.4)
--- NOTE | 2018-05-20 07:45 | CP.CCUPN ---
<Kei Burns - Last Filed: 05/20/18 11:15> CCU Subjective - Physician Review Subjective (Free Text): ICU Progress Note for Dr. Ramon Pt seen and examined at bedside. Currently intubated. Unable to obtain HPI or ROS due to pt's current clinical status. No acute events reported overnight by staff. Febrile this am. Plan for weaning trials off vent today. CCU Objective - Vital Signs / Intake & Output Vital Signs (Last 4 hours): Vital Signs Temp Pulse Resp BP Pulse Ox 05/20/18 06:00 81 18 100 05/20/18 05:54 97/43 L 05/20/18 05:00 79 18 100 05/20/18 04:54 121/47 L 05/20/18 04:01 99.6 F 05/20/18 04:00 87 12 100 05/20/18 03:53 119/61 Intake and Output (Last 8hrs): Intake & Output 05/19/18 05/20/18 05/20/18 22:59 06:59 14:59 Intake Total 438.9 624.3 Output Total 50 Balance 438.9 574.3 Weight 158 lb 6.4 oz Intake: IV 90 50 Intake, IV Amount 188.9 214.3 Left Forearm 62.3 80.1 Right Antecubital 100 100 Right Internal Jugular 26.6 34.2 Trialysis Catheter Tube Feeding 160 360 Output: Urine 50 Urethral ([place]) 50 Other: # Bowel Movements 1 1 - Physical Exam Head: Positive for: Atraumatic, Normocephalic Pupils: Positive for: PERRL Extroacular Muscles: Positive for: EOMI Conjunctiva: Positive for: Normal Ears: Positive for: Normal Mouth: Positive for: Moist Mucous Membranes Nose (External): Positive for: Atraumatic Respiratory/Chest: Positive for: Clear to Auscultation Cardiovascular: Positive for: Regular Rate and Rhythm Abdomen: Positive for: Normal Bowel Sounds. Negative for: Tenderness, Distention Upper Extremity: Positive for: Edema Lower Extremity: Positive for: Edema, Other (skin blisters noted on L anterior calf) Neurological: Positive for: Other (intubated) Psychiatric: Positive for: Other (intubated). Negative for: Alert, Oriented x 3 - Medications Active Medications: Active Medications Generic Name Dose Route Start Last Admin Trade Name Freq PRN Reason Stop Dose Admin Acetaminophen 650 mg 05/18/18 00:30 05/19/18 16:08 Tylenol 650mg/20.3ml Solution Ud PO 650 mg Q6 PRN Administration Fever >100.4 F or Pain Dextrose 0 ml 05/16/18 18:32 05/18/18 18:17 Dextrose 50% Inj IV 50 ml STAT PRN Administration Hypoglycemia Protocol Protocol Dextrose 0 gm 05/16/18 18:32 Glutose 15 PO ONCE PRN Hypoglycemia Protocol Protocol Epoetin Anthony 8,000 unit 05/18/18 13:45 05/18/18 13:52 Procrit SC 8,000 unit MWF [facility] Administration Ergocalciferol 1 cap 05/18/18 10:45 05/18/18 13:24 Drisdol 50,000 Intl Units Cap PO 1 cap Q7D [facility] Administration Ferrous Gluconate 324 mg 05/18/18 14:00 05/19/18 17:24 Fergon PO 324 mg TID [facility] Administration Glucagon 0 mg 05/16/18 18:32 Glucagen Diagnostic Kit IM STAT PRN Hypoglycemia Protocol Protocol Heparin Sodium (Porcine) 5,000 units 05/16/18 17:45 05/19/18 05:17 Heparin SC 5,000 units Q12H [facility] Administration Dexmedetomidine HCl 200 mcg/ 50 mls @ 3.4 mls/hr 05/15/18 20:23 05/20/18 04:25 Sodium Chloride IV 0.5 mcg/kg/hr TITR PRN 8.5 mls/hr Sedation Administration Protocol 0.2 MCG/KG/HR Norepinephrine Bitartrate 8 mg 258 mls @ 7.74 mls/hr 05/16/18 11:55 05/19/18 20:00 / Sodium Chloride IV 2 mcg/min .Q24H PRN 3.87 mls/hr TITRATE PER MD ORDER Titration Protocol 4 MCG/MIN Dextrose 1,000 mls @ 0 mls/hr 05/16/18 18:32 Dextrose 5% In Water 1000 Ml IV .Q0M PRN Hypoglycemia Protocol Protocol Per Protocol Aztreonam 1 gm/ Sodium 100 mls @ 100 mls/hr 05/17/18 20:00 05/19/18 20:41 Chloride IVPB 100 mls/hr Q12H [facility] Administration Protocol Clindamycin Phosphate 600 mg/ 54 mls @ 100 mls/hr 05/17/18 22:00 05/20/18 05:09 Sodium Chloride IVPB 100 mls/hr Q8H [facility] Administration Protocol Vancomycin/Sodium Chloride 1 gm in 200 mls @ 133.333 mls/hr 05/20/18 09:00 Vancomycin 1 Gm/Ns 200 Ml IVPB 05/25/18 09:01 MWF [facility] Protocol Insulin Aspart 0 unit 05/18/18 00:00 05/20/18 06:04 Novolog SC Not Given Q6 [facility] Protocol Pantoprazole Sodium 40 mg 05/17/18 10:00 05/19/18 09:18 Protonix Inj IVP 40 mg DAILY [facility] Administration Vitamin B Complex/Vit C/Folic Acid 1 tab 05/19/18 08:00 05/19/18 08:16 Nephro-Pancho PO 1 tab 0800 [facility] Administration - Patient Studies Lab Studies: Microbiology Studies 05/19/18 11:56 Gram Stain - Final Sputum Lab Studies 05/20/18 05/20/18 05/20/18 Range/Units 05:47 05:47 05:14 WBC 31.1 H (4.8-10.8) K/uL RBC 2.40 L (3.80-5.20) Mil/uL Hgb 7.9 L (11.0-16.0) g/dL Hct 24.6 L (34.0-47.0) % MCV 102.3 H (81.0-99.0) fL MCH 32.7 H (27.0-31.0) pg MCHC 32.0 L (33.0-37.0) g/dL RDW 16.6 H (11.5-14.5) % Plt Count 47 L (130-400) K/uL MPV 11.1 (7.2-11.7) fL Neut % (Auto) 95.0 H (50.0-75.0) % Lymph % (Auto) 2.3 L (20.0-40.0) % Mobile % (Auto) 2.5 (0.0-10.0) % Eos % (Auto) 0.1 (0.0-4.0) % Baso % (Auto) 0.1 (0.0-2.0) % Neut # (Auto) 29.6 H (1.8-7.0) K/uL Lymph # (Auto) 0.7 L (1.0-4.3) K/uL Mobile # (Auto) 0.8 (0.0-0.8) K/uL Eos # (Auto) 0.0 (0.0-0.7) K/uL Baso # (Auto) 0.0 (0.0-0.2) K/uL Neutrophils % (Manual) (50-75) % Band Neutrophils % (0-2) % Lymphocytes % (Manual) (20-40) % Monocytes % (Manual) (0-10) % Platelet Estimate (NORMAL) Polychromasia Hypochromasia (manual) Anisocytosis (manual) Macrocytosis (manual) Ovalocytes Puncture Site L rad pCO2 40 (35-45) mm/Hg pO2 128 H (80-100) mm/Hg HCO3 26.0 (21-28) mmol/L ABG pH 7.42 (7.35-7.45) ABG Total CO2 27.1 (22-28) mmol/L ABG O2 Saturation 96.9 (95-98) % ABG Base Excess 1.3 (-2.0-3.0) mmol/L Nicolás Test Pos ABG Potassium 3.6 (3.6-5.2) mmol/L A-a O2 Difference 143.0 mm/Hg Respiratory Index 1.1 Sodium 136 140.0 (132-148) mmol/l Chloride 103 107.0 (98-107) mmol/L Glucose 98 (65-105) mg/dl Lactate 1.1 (0.7-2.1) mmol/L Vent Mode Prvc Mechanical Rate 18 FiO2 45.0 % Tidal Volume 400 PEEP 5 Potassium 3.8 (3.6-5.2) mmol/L Carbon Dioxide 27 (22-30) mmol/L Anion Gap 11 (10-20) BUN 51 H (7-17) mg/dL Creatinine 2.9 H (0.7-1.2) mg/dL Est GFR ( Amer) 19 Est GFR (Non-Af Amer) 16 POC Glucose (mg/dL) (65-110) mg/dL Random Glucose 100 D (65-105) mg/dL Calcium 7.9 L (8.6-10.4) mg/dl Phosphorus 3.5 (2.5-4.5) mg/dL Magnesium 2.1 (1.6-2.3) mg/dL Total Bilirubin 1.0 (0.2-1.3) mg/dL AST 36 (14-36) U/L ALT 24 (9-52) U/L Alkaline Phosphatase 148 H D (38-126) U/L Total Protein 4.9 L (6.3-8.3) g/dL Albumin 2.5 L (3.5-5.0) g/dL Globulin 2.4 (2.2-3.9) gm/dL Albumin/Globulin Ratio 1.1 (1.0-2.1) Arterial Blood Potassium 3.6 (3.6-5.2) mmol/L Mycoplasma pneumon IgM (NEGATIVE) 05/20/18 05/20/18 05/19/18 Range/Units 05:05 00:10 17:49 WBC (4.8-10.8) K/uL RBC (3.80-5.20) Mil/uL Hgb (11.0-16.0) g/dL Hct (34.0-47.0) % MCV (81.0-99.0) fL MCH (27.0-31.0) pg MCHC (33.0-37.0) g/dL RDW (11.5-14.5) % Plt Count (130-400) K/uL MPV (7.2-11.7) fL Neut % (Auto) (50.0-75.0) % Lymph % (Auto) (20.0-40.0) % Mobile % (Auto) (0.0-10.0) % Eos % (Auto) (0.0-4.0) % Baso % (Auto) (0.0-2.0) % Neut # (Auto) (1.8-7.0) K/uL Lymph # (Auto) (1.0-4.3) K/uL Mobile # (Auto) (0.0-0.8) K/uL Eos # (Auto) (0.0-0.7) K/uL Baso # (Auto) (0.0-0.2) K/uL Neutrophils % (Manual) (50-75) % Band Neutrophils % (0-2) % Lymphocytes % (Manual) (20-40) % Monocytes % (Manual) (0-10) % Platelet Estimate (NORMAL) Polychromasia Hypochromasia (manual) Anisocytosis (manual) Macrocytosis (manual) Ovalocytes Puncture Site pCO2 (35-45) mm/Hg pO2 (80-100) mm/Hg HCO3 (21-28) mmol/L ABG pH (7.35-7.45) ABG Total CO2 (22-28) mmol/L ABG O2 Saturation (95-98) % ABG Base Excess (-2.0-3.0) mmol/L Nicolás Test ABG Potassium (3.6-5.2) mmol/L A-a O2 Difference mm/Hg Respiratory Index Sodium (132-148) mmol/l Chloride (98-107) mmol/L Glucose (65-105) mg/dl Lactate (0.7-2.1) mmol/L Vent Mode Mechanical Rate FiO2 % Tidal Volume PEEP Potassium (3.6-5.2) mmol/L Carbon Dioxide (22-30) mmol/L Anion Gap (10-20) BUN (7-17) mg/dL Creatinine (0.7-1.2) mg/dL Est GFR ( Amer) Est GFR (Non-Af Amer) POC Glucose (mg/dL) 136 H 141 H 178 H (65-110) mg/dL Random Glucose (65-105) mg/dL Calcium (8.6-10.4) mg/dl Phosphorus (2.5-4.5) mg/dL Magnesium (1.6-2.3) mg/dL Total Bilirubin (0.2-1.3) mg/dL AST (14-36) U/L ALT (9-52) U/L Alkaline Phosphatase (38-126) U/L Total Protein (6.3-8.3) g/dL Albumin (3.5-5.0) g/dL Globulin (2.2-3.9) gm/dL Albumin/Globulin Ratio (1.0-2.1) Arterial Blood Potassium (3.6-5.2) mmol/L Mycoplasma pneumon IgM (NEGATIVE) 05/19/18 05/19/18 05/19/18 Range/Units 11:56 11:25 06:00 WBC (4.8-10.8) K/uL RBC (3.80-5.20) Mil/uL Hgb (11.0-16.0) g/dL Hct (34.0-47.0) % MCV (81.0-99.0) fL MCH (27.0-31.0) pg MCHC (33.0-37.0) g/dL RDW (11.5-14.5) % Plt Count (130-400) K/uL MPV (7.2-11.7) fL Neut % (Auto) (50.0-75.0) % Lymph % (Auto) (20.0-40.0) % Mobile % (Auto) (0.0-10.0) % Eos % (Auto) (0.0-4.0) % Baso % (Auto) (0.0-2.0) % Neut # (Auto) (1.8-7.0) K/uL Lymph # (Auto) (1.0-4.3) K/uL [place] # (Auto) (0.0-0.8) K/uL Eos # (Auto) (0.0-0.7) K/uL Baso # (Auto) (0.0-0.2) K/uL Neutrophils % (Manual) 60 (50-75) % Band Neutrophils % 31 H* (0-2) % Lymphocytes % (Manual) 1 L (20-40) % Monocytes % (Manual) 8 (0-10) % Platelet Estimate Decreased L (NORMAL) Polychromasia Slight Hypochromasia (manual) Slight Anisocytosis (manual) Slight Macrocytosis (manual) Slight Ovalocytes Slight Puncture Site pCO2 (35-45) mm/Hg pO2 (80-100) mm/Hg HCO3 (21-28) mmol/L ABG pH (7.35-7.45) ABG Total CO2 (22-28) mmol/L ABG O2 Saturation (95-98) % ABG Base Excess (-2.0-3.0) mmol/L Nicolás Test ABG Potassium (3.6-5.2) mmol/L A-a O2 Difference mm/Hg Respiratory Index Sodium (132-148) mmol/l Chloride (98-107) mmol/L Glucose (65-105) mg/dl Lactate (0.7-2.1) mmol/L Vent Mode Mechanical Rate FiO2 % Tidal Volume PEEP Potassium (3.6-5.2) mmol/L Carbon Dioxide (22-30) mmol/L Anion Gap (10-20) BUN (7-17) mg/dL Creatinine (0.7-1.2) mg/dL Est GFR ( Amer) Est GFR (Non-Af Amer) POC Glucose (mg/dL) 178 H (65-110) mg/dL Random Glucose (65-105) mg/dL Calcium (8.6-10.4) mg/dl Phosphorus (2.5-4.5) mg/dL Magnesium (1.6-2.3) mg/dL Total Bilirubin (0.2-1.3) mg/dL AST (14-36) U/L ALT (9-52) U/L Alkaline Phosphatase (38-126) U/L Total Protein (6.3-8.3) g/dL Albumin (3.5-5.0) g/dL Globulin (2.2-3.9) gm/dL Albumin/Globulin Ratio (1.0-2.1) Arterial Blood Potassium (3.6-5.2) mmol/L Mycoplasma pneumon IgM Negative (NEGATIVE) 05/19/18 Range/Units 05:15 WBC (4.8-10.8) K/uL RBC (3.80-5.20) Mil/uL Hgb (11.0-16.0) g/dL Hct (34.0-47.0) % MCV (81.0-99.0) fL MCH (27.0-31.0) pg MCHC (33.0-37.0) g/dL RDW (11.5-14.5) % Plt Count (130-400) K/uL MPV (7.2-11.7) fL Neut % (Auto) (50.0-75.0) % Lymph % (Auto) (20.0-40.0) % Mobile % (Auto) (0.0-10.0) % Eos % (Auto) (0.0-4.0) % Baso % (Auto) (0.0-2.0) % Neut # (Auto) (1.8-7.0) K/uL Lymph # (Auto) (1.0-4.3) K/uL [place] # (Auto) (0.0-0.8) K/uL Eos # (Auto) (0.0-0.7) K/uL Baso # (Auto) (0.0-0.2) K/uL Neutrophils % (Manual) (50-75) % Band Neutrophils % (0-2) % Lymphocytes % (Manual) (20-40) % Monocytes % (Manual) (0-10) % Platelet Estimate (NORMAL) Polychromasia Hypochromasia (manual) Anisocytosis (manual) Macrocytosis (manual) Ovalocytes Puncture Site pCO2 (35-45) mm/Hg pO2 (80-100) mm/Hg HCO3 (21-28) mmol/L ABG pH (7.35-7.45) ABG Total CO2 (22-28) mmol/L ABG O2 Saturation (95-98) % ABG Base Excess (-2.0-3.0) mmol/L Nicolás Test ABG Potassium (3.6-5.2) mmol/L A-a O2 Difference mm/Hg Respiratory Index Sodium (132-148) mmol/l Chloride (98-107) mmol/L Glucose (65-105) mg/dl Lactate (0.7-2.1) mmol/L Vent Mode Mechanical Rate FiO2 % Tidal Volume PEEP Potassium (3.6-5.2) mmol/L Carbon Dioxide (22-30) mmol/L Anion Gap (10-20) BUN (7-17) mg/dL Creatinine (0.7-1.2) mg/dL Est GFR ( Amer) Est GFR (Non-Af Amer) POC Glucose (mg/dL) 146 H (65-110) mg/dL Random Glucose (65-105) mg/dL Calcium (8.6-10.4) mg/dl Phosphorus (2.5-4.5) mg/dL Magnesium (1.6-2.3) mg/dL Total Bilirubin (0.2-1.3) mg/dL AST (14-36) U/L ALT (9-52) U/L Alkaline Phosphatase (38-126) U/L Total Protein (6.3-8.3) g/dL Albumin (3.5-5.0) g/dL Globulin (2.2-3.9) gm/dL Albumin/Globulin Ratio (1.0-2.1) Arterial Blood Potassium (3.6-5.2) mmol/L Mycoplasma pneumon IgM (NEGATIVE) Laboratory Results - last 24 hr 05/19/18 05/19/18 05/19/18 05:15 06:00 11:25 WBC RBC Hgb Hct MCV MCH MCHC RDW Plt Count MPV Neut % (Auto) Lymph % (Auto) Mobile % (Auto) Eos % (Auto) Baso % (Auto) Neut # (Auto) Lymph # (Auto) Mobile # (Auto) Eos # (Auto) Baso # (Auto) Neutrophils % (Manual) 60 Band Neutrophils % 31 H* Lymphocytes % (Manual) 1 L Monocytes % (Manual) 8 Platelet Estimate Decreased L Polychromasia Slight Hypochromasia (manual) Slight Anisocytosis (manual) Slight Macrocytosis (manual) Slight Ovalocytes Slight Puncture Site pCO2 pO2 HCO3 ABG pH ABG Total CO2 ABG O2 Saturation ABG Base Excess Nicolás Test ABG Potassium A-a O2 Difference Respiratory Index Sodium Chloride Glucose Lactate Vent Mode Mechanical Rate FiO2 Tidal Volume PEEP Potassium Carbon Dioxide Anion Gap BUN Creatinine Est GFR ( Amer) Est GFR (Non-Af Amer) POC Glucose (mg/dL) 146 H 178 H Random Glucose Calcium Phosphorus Magnesium Total Bilirubin AST ALT Alkaline Phosphatase Total Protein Albumin Globulin Albumin/Globulin Ratio Arterial Blood Potassium Mycoplasma pneumon IgM 05/19/18 05/19/18 05/20/18 11:56 17:49 00:10 WBC RBC Hgb Hct MCV MCH MCHC RDW Plt Count MPV Neut % (Auto) Lymph % (Auto) Mobile % (Auto) Eos % (Auto) Baso % (Auto) Neut # (Auto) Lymph # (Auto) Mobile # (Auto) Eos # (Auto) Baso # (Auto) Neutrophils % (Manual) Band Neutrophils % Lymphocytes % (Manual) Monocytes % (Manual) Platelet Estimate Polychromasia Hypochromasia (manual) Anisocytosis (manual) Macrocytosis (manual) Ovalocytes Puncture Site pCO2 pO2 HCO3 ABG pH ABG Total CO2 ABG O2 Saturation ABG Base Excess Nicolás Test ABG Potassium A-a O2 Difference Respiratory Index Sodium Chloride Glucose Lactate Vent Mode Mechanical Rate FiO2 Tidal Volume PEEP Potassium Carbon Dioxide Anion Gap BUN Creatinine Est GFR ( Amer) Est GFR (Non-Af Amer) POC Glucose (mg/dL) 178 H 141 H Random Glucose Calcium Phosphorus Magnesium Total Bilirubin AST ALT Alkaline Phosphatase Total Protein Albumin Globulin Albumin/Globulin Ratio Arterial Blood Potassium Mycoplasma pneumon IgM Negative 05/20/18 05/20/18 05/20/18 05:05 05:14 05:47 WBC 31.1 H RBC 2.40 L Hgb 7.9 L Hct 24.6 L MCV 102.3 H MCH 32.7 H MCHC 32.0 L RDW 16.6 H Plt Count 47 L MPV 11.1 Neut % (Auto) 95.0 H Lymph % (Auto) 2.3 L Mobile % (Auto) 2.5 Eos % (Auto) 0.1 Baso % (Auto) 0.1 Neut # (Auto) 29.6 H Lymph # (Auto) 0.7 L Mobile # (Auto) 0.8 Eos # (Auto) 0.0 Baso # (Auto) 0.0 Neutrophils % (Manual) Band Neutrophils % Lymphocytes % (Manual) Monocytes % (Manual) Platelet Estimate Polychromasia Hypochromasia (manual) Anisocytosis (manual) Macrocytosis (manual) Ovalocytes Puncture Site L rad pCO2 40 pO2 128 H HCO3 26.0 ABG pH 7.42 ABG Total CO2 27.1 ABG O2 Saturation 96.9 ABG Base Excess 1.3 Nicolás Test Pos ABG Potassium 3.6 A-a O2 Difference 143.0 Respiratory Index 1.1 Sodium 140.0 Chloride 107.0 Glucose 98 Lactate 1.1 Vent Mode Prvc Mechanical Rate 18 FiO2 45.0 Tidal Volume 400 PEEP 5 Potassium Carbon Dioxide Anion Gap BUN Creatinine Est GFR ( Amer) Est GFR (Non-Af Amer) POC Glucose (mg/dL) 136 H Random Glucose Calcium Phosphorus Magnesium Total Bilirubin AST ALT Alkaline Phosphatase Total Protein Albumin Globulin Albumin/Globulin Ratio Arterial Blood Potassium 3.6 Mycoplasma pneumon IgM 05/20/18 05:47 WBC RBC Hgb Hct MCV MCH MCHC RDW Plt Count MPV Neut % (Auto) Lymph % (Auto) Mobile % (Auto) Eos % (Auto) Baso % (Auto) Neut # (Auto) Lymph # (Auto) Mobile # (Auto) Eos # (Auto) Baso # (Auto) Neutrophils % (Manual) Band Neutrophils % Lymphocytes % (Manual) Monocytes % (Manual) Platelet Estimate Polychromasia Hypochromasia (manual) Anisocytosis (manual) Macrocytosis (manual) Ovalocytes Puncture Site pCO2 pO2 HCO3 ABG pH ABG Total CO2 ABG O2 Saturation ABG Base Excess Nicolás Test ABG Potassium A-a O2 Difference Respiratory Index Sodium 136 Chloride 103 Glucose Lactate Vent Mode Mechanical Rate FiO2 Tidal Volume PEEP Potassium 3.8 Carbon Dioxide 27 Anion Gap 11 BUN 51 H Creatinine 2.9 H Est GFR ( Amer) 19 Est GFR (Non-Af Amer) 16 POC Glucose (mg/dL) Random Glucose 100 D Calcium 7.9 L Phosphorus 3.5 Magnesium 2.1 Total Bilirubin 1.0 AST 36 ALT 24 Alkaline Phosphatase 148 H D Total Protein 4.9 L Albumin 2.5 L Globulin 2.4 Albumin/Globulin Ratio 1.1 Arterial Blood Potassium Mycoplasma pneumon IgM Radiology Impressions: Radiology Impressions Chest X-Ray 05/19/18 06:00 IMPRESSION: Lines and tubes in stable position. Persistent consolidative opacification in the left mid to lower lung zone with mildly increased patchy consolidative changes in the right lung. Cardiomegaly. Ankle X-Ray 05/19/18 14:23 IMPRESSION: No evidence of acute displaced fracture nor dislocation. No obvious cortical destructive changes. Diffuse soft tissue swelling and infiltration consistent with cellulitis however no evidence of subcutaneous emphysema is identified. Foot X-Ray 05/19/18 14:23 IMPRESSION: No gas-forming cellulitis. Soft tissue diffuse swelling-compatible with lymphedema and/or cellulitis. No periosteal reaction to suggest osteomyelitis noted. No gross osseous destruction appreciated . Generalized osteopenia and mild diffuse degenerative changes as above. Tibia/Fibula X-Ray 05/19/18 14:23 IMPRESSION: No evidence of acute displaced fracture nor dislocation. No cortical destructive destruction however there does appear to be mild cortical thickening changes involving the mid lateral fibula that could be reactive although early osteomyelitis not completely excluded. Consider follow-up bone scan or MRI. Fingerstick Blood Sugar Results: 136 Review of Systems - Review of Systems Systems not reviewed;Unavailable: Intubated Assessment/Plan - Assessment and Plan (Free Text) Assessment: 72 y o female with PMhx CHF, CAD, HTN, HLD, hx thyroid disease and renal disease, who presented to the ED with c/o LLE swelling and pain x 1 day induration, was also having fever. Code Sepsis called in ED. Pt was admitted to medical floor. Pt had repeated episodes of tachycardia and hypotension, leading to [employer] on 05/15 in which pt became more lethargic-appearing on exam after vomiting episode, s/p intubation by anesthesia, pt was transferred to ICU for further monitoring. Acute respiratory failure likely 2/2 aspiration of bilious vomit. Intubated on vent, plan for weaning protocol and CPAP trials. Was placed on Levophed drip for septic shock with Group C strep bacteremia from LLE cellul itis and urine cx pos for E. coli, tapered down. Presented with oliguria, acute tubular necrosis, started on HD 05/17/18, currently on HD MWF as per Nephro recs. LLE imaging negative for subcutaneous emphysema, Podiatry consulted. Plan: Neuro: -Currently intubated -No gross deficits on exam, cont to monitor Cardio: -Hx CABG, HTN, CHF, HLD -Dr. Ramires consulted, recs appreciated -Echo 05/15: LV function severely reduced, diffuse hypokinesis. EF 20%. Septum dyskinetic and demonstrates flattening, elevated RV pressure. R ventricle, L and R atria dilated. Severe pulmonary HTN. -Pressor therapy tapered down -Hemodymanically stable, cont to monitor Pulm: -Intubated on PRVC -Weaning protocol and CPAP trials as tolerated -Maintain O2 sat > 92% -Bronchodilators -Acute respiratory failure likely 2/2 aspiration of bilious vomit -Vanco/Azactam/Clindamycin -Vanco trough elevated, Vanco dose to be held this am -Leukocytosis trending up, bands trending down to 12 -Blood cxs growing Group C strep, urine cx growing E.coli GI: -NPO -Glucerna tube feeds -Protonix Heme: -Dr. Duggan consulted for pancytopenia, recs appreciated -Procrit MWF -H/H 7.9/24.6, stable, cont to trend, transfuse prn -Thrombocytopenia stable, cont to trend Renal: -Oliguria, ATN -Dr. Pereira consulted, recs appreciated -HD MWF -[place] d/c'd ID: -Tx possible aspiration PNA and UTI as noted above -ID consulted, Dr. Guevara, recs appreciated -Podiatry consulted, Dr. Zhu, for L lower leg cellulitis/blister formation, recs appreciated No acute surgical intervention indicated at this time -L Ankle XR: No evid of acute displaced fracture or doslocation. No obvious cortical destructive changes. Diffuse soft tissue swelling and infiltration c/w cellulitis however no evidence of subcutaneous emphysema is identified. -L Foot XR: No gas forming cellulitis. Soft tissue diffuse swelling - compatible with lymphedema and/or cellulitis. No periosteal reaction to suggest osteomyelitis noted. No gross osseous destruction appreciated. Generalized osteopenia and mild diffuse degenerative changes as above. -L tib/fib XR: No evidence of acute displaced fracture nor dislocation. No cortical destruction however does appear to be mild cortical thickening changes inviling the mid lateral fibula that could be reactive although early osteomyelitis not completely excluded. Consider f/u bone scan or MRI. Endo: -Hx DM2 -Fingersticks q6h -ISS -Hypoglycemic protocol PPX: -Protonix, Heparin on hold / low Hgb Pt seen, examined with, and plan discussed with Dr. Ramon, attending physician. Kei Burns DO PGY-1, Piercer Operator Pager #[phone] <Toney Ramon - Last Filed: 05/20/18 15:57> CCU Subjective - Physician Review Critical Care Time Spent (in minutes): 45 CCU Objective - Vital Signs / Intake & Output Vital Signs (Last 4 hours): Vital Signs Temp Pulse Pulse Resp BP BP Pulse Ox 05/20/18 15:30 142/53 L 05/20/18 15:00 132/52 L 05/20/18 14:30 101/50 L 05/20/18 14:00 70 17 121/48 L 100 05/20/18 13:59 68 18 121/48 L 100 05/20/18 13:45 113/47 L 05/20/18 13:44 67 18 113/47 L 100 05/20/18 13:30 119/47 L 05/20/18 13:29 70 18 119/48 L 100 05/20/18 13:15 118/49 L 05/20/18 13:14 70 18 118/49 L 05/20/18 13:00 100 F H 87 78 16 116/52 L 100 05/20/18 12:59 73 15 116/52 L 05/20/18 12:55 98.9 F 78 14 116/52 L 05/20/18 12:54 72 16 120/49 L 05/20/18 12:00 101.7 F H 81 18 99 Intake and Output (Last 8hrs): Intake & Output 04/03/19 04/03/19 04/03/19 06:59 14:59 22:59 Intake Total 624.3 729.3 Output Total 50 10 Balance 574.3 719.3 Weight 158 lb 6.4 oz Intake: IV 50 138 Intake, IV Amount 214.3 181.3 Left Forearm 80.1 62.3 Right Antecubital 100 100 Right Internal Jugular 34.2 19.0 Trialysis Catheter Tube Feeding 360 260 Other 150 Output: Urine 50 10 Urethral ([place]) 50 10 Other: # Bowel Movements 1 1 - Medications Active Medications: Active Medications Generic Name Dose Route Start Last Admin Trade Name Freq PRN Reason Stop Dose Admin Acetaminophen 650 mg 05/18/18 00:30 05/20/18 08:13 Tylenol 650mg/20.3ml Solution Ud PO 650 mg Q6 PRN Administration Fever >100.4 F or Pain Dextrose 0 ml 05/16/18 18:32 05/18/18 18:17 Dextrose 50% Inj IV 50 ml STAT PRN Administration Hypoglycemia Protocol Protocol Dextrose 0 gm 05/16/18 18:32 Glutose 15 PO ONCE PRN Hypoglycemia Protocol Protocol Epoetin Anthony 10,000 unit 05/20/18 15:30 05/20/18 15:23 Procrit IV 10,000 unit MWF [facility] Administration Ergocalciferol 1 cap 05/18/18 10:45 05/18/18 13:24 Drisdol 50,000 Intl Units Cap PO 1 cap Q7D [facility] Administration Ferrous Gluconate 324 mg 05/18/18 14:00 05/20/18 13:45 Fergon PO 324 mg TID [facility] Administration Glucagon 0 mg 05/16/18 18:32 Glucagen Diagnostic Kit IM STAT PRN Hypoglycemia Protocol Protocol Heparin Sodium (Porcine) 5,000 units 05/16/18 17:45 05/19/18 05:17 Heparin SC 5,000 units Q12H [facility] Administration Dexmedetomidine HCl 200 mcg/ 50 mls @ 3.4 mls/hr 05/15/18 20:23 05/20/18 14:39 Sodium Chloride IV 0.6 mcg/kg/hr TITR PRN 10.21 mls/hr Sedation Titration Protocol 0.2 MCG/KG/HR Norepinephrine Bitartrate 8 mg 258 mls @ 7.74 mls/hr 05/16/18 11:55 04/03/19 12:39 / Sodium Chloride IV 2 mcg/min .Q24H PRN 3.87 mls/hr TITRATE PER MD ORDER Titration Protocol 4 MCG/MIN Dextrose 1,000 mls @ 0 mls/hr 05/16/18 18:32 Dextrose 5% In Water 1000 Ml IV .Q0M PRN Hypoglycemia Protocol Protocol Per Protocol Aztreonam 1 gm/ Sodium 100 mls @ 100 mls/hr 05/17/18 20:00 05/20/18 07:48 Chloride IVPB 100 mls/hr Q12H [facility] Administration Protocol Clindamycin Phosphate 600 mg/ 54 mls @ 100 mls/hr 05/17/18 22:00 05/20/18 13:47 Sodium Chloride IVPB 100 mls/hr Q8H [facility] Administration Protocol Vancomycin/Sodium Chloride 1 gm in 200 mls @ 133.333 mls/hr 05/20/18 09:00 05/20/18 09:30 Vancomycin 1 Gm/Ns 200 Ml IVPB 05/25/18 09:01 Not Given MWF [facility] Protocol Insulin Aspart 0 unit 05/18/18 00:00 05/20/18 11:33 Novolog SC Not Given Q6 [facility] Protocol Pantoprazole Sodium 40 mg 05/17/18 10:00 05/20/18 09:13 Protonix Inj IVP 40 mg DAILY [facility] Administration Vitamin B Complex/Vit C/Folic Acid 1 tab 05/19/18 08:00 05/20/18 07:48 Nephro-Pancho PO 1 tab 0800 [facility] Administration - Patient Studies Lab Studies: Microbiology Studies 05/20/18 09:04 Gram Stain - Final Leg - Left 05/19/18 11:56 Gram Stain - Final Sputum Sputum Culture - Preliminary Gram Negative Ramón Lab Studies 05/20/18 05/20/18 05/20/18 Range/Units 11:21 05:47 05:47 WBC 31.1 H (4.8-10.8) K/uL RBC 2.40 L (3.80-5.20) Mil/uL Hgb 7.9 L (11.0-16.0) g/dL Hct 24.6 L (34.0-47.0) % MCV 102.3 H (81.0-99.0) fL MCH 32.7 H (27.0-31.0) pg MCHC 32.0 L (33.0-37.0) g/dL RDW 16.6 H (11.5-14.5) % Plt Count 47 L (130-400) K/uL MPV 11.1 (7.2-11.7) fL Neut % (Auto) 95.0 H (50.0-75.0) % Lymph % (Auto) 2.3 L (20.0-40.0) % Mobile % (Auto) 2.5 (0.0-10.0) % Eos % (Auto) 0.1 (0.0-4.0) % Baso % (Auto) 0.1 (0.0-2.0) % Neut # (Auto) 29.6 H (1.8-7.0) K/uL Lymph # (Auto) 0.7 L (1.0-4.3) K/uL Mobile # (Auto) 0.8 (0.0-0.8) K/uL Eos # (Auto) 0.0 (0.0-0.7) K/uL Baso # (Auto) 0.0 (0.0-0.2) K/uL Neutrophils % (Manual) 86 H (50-75) % Band Neutrophils % 12 H* (0-2) % Lymphocytes % (Manual) TEST NOT PERFORMED Monocytes % (Manual) 2 (0-10) % Platelet Estimate Decreased L (NORMAL) Polychromasia Slight Hypochromasia (manual) Slight Anisocytosis (manual) Slight Macrocytosis (manual) Slight Puncture Site pCO2 (35-45) mm/Hg pO2 (80-100) mm/Hg HCO3 (21-28) mmol/L ABG pH (7.35-7.45) ABG Total CO2 (22-28) mmol/L ABG O2 Saturation (95-98) % ABG Base Excess (-2.0-3.0) mmol/L Nicolás Test ABG Potassium (3.6-5.2) mmol/L A-a O2 Difference mm/Hg Respiratory Index Sodium 136 (132-148) mmol/l Chloride 103 (98-107) mmol/L Glucose (65-105) mg/dl Lactate (0.7-2.1) mmol/L Vent Mode Mechanical Rate FiO2 % Tidal Volume PEEP Potassium 3.8 (3.6-5.2) mmol/L Carbon Dioxide 27 (22-30) mmol/L Anion Gap 11 (10-20) BUN 51 H (7-17) mg/dL Creatinine 2.9 H (0.7-1.2) mg/dL Est GFR ( Amer) 19 Est GFR (Non-Af Amer) 16 POC Glucose (mg/dL) 149 H (65-110) mg/dL Random Glucose 100 D (65-105) mg/dL Calcium 7.9 L (8.6-10.4) mg/dl Phosphorus 3.5 (2.5-4.5) mg/dL Magnesium 2.1 (1.6-2.3) mg/dL Total Bilirubin 1.0 (0.2-1.3) mg/dL AST 36 (14-36) U/L ALT 24 (9-52) U/L Alkaline Phosphatase 148 H D (38-126) U/L Total Protein 4.9 L (6.3-8.3) g/dL Albumin 2.5 L (3.5-5.0) g/dL Globulin 2.4 (2.2-3.9) gm/dL Albumin/Globulin Ratio 1.1 (1.0-2.1) Arterial Blood Potassium (3.6-5.2) mmol/L Ur L.pneumophila Ag (NEGATIVE) Mycoplasma pneumon IgM (NEGATIVE) 05/20/18 05/20/18 05/20/18 Range/Units 05:14 05:05 00:10 WBC (4.8-10.8) K/uL RBC (3.80-5.20) Mil/uL Hgb (11.0-16.0) g/dL Hct (34.0-47.0) % MCV (81.0-99.0) fL MCH (27.0-31.0) pg MCHC (33.0-37.0) g/dL RDW (11.5-14.5) % Plt Count (130-400) K/uL MPV (7.2-11.7) fL Neut % (Auto) (50.0-75.0) % Lymph % (Auto) (20.0-40.0) % Mobile % (Auto) (0.0-10.0) % Eos % (Auto) (0.0-4.0) % Baso % (Auto) (0.0-2.0) % Neut # (Auto) (1.8-7.0) K/uL Lymph # (Auto) (1.0-4.3) K/uL Mobile # (Auto) (0.0-0.8) K/uL Eos # (Auto) (0.0-0.7) K/uL Baso # (Auto) (0.0-0.2) K/uL Neutrophils % (Manual) (50-75) % Band Neutrophils % (0-2) % Lymphocytes % (Manual) Monocytes % (Manual) (0-10) % Platelet Estimate (NORMAL) Polychromasia Hypochromasia (manual) Anisocytosis (manual) Macrocytosis (manual) Puncture Site L rad pCO2 40 (35-45) mm/Hg pO2 128 H (80-100) mm/Hg HCO3 26.0 (21-28) mmol/L ABG pH 7.42 (7.35-7.45) ABG Total CO2 27.1 (22-28) mmol/L ABG O2 Saturation 96.9 (95-98) % ABG Base Excess 1.3 (-2.0-3.0) mmol/L Nicolás Test Pos ABG Potassium 3.6 (3.6-5.2) mmol/L A-a O2 Difference 143.0 mm/Hg Respiratory Index 1.1 Sodium 140.0 (132-148) mmol/l Chloride 107.0 (98-107) mmol/L Glucose 98 (65-105) mg/dl Lactate 1.1 (0.7-2.1) mmol/L Vent Mode Prvc Mechanical Rate 18 FiO2 45.0 % Tidal Volume 400 PEEP 5 Potassium (3.6-5.2) mmol/L Carbon Dioxide (22-30) mmol/L Anion Gap (10-20) BUN (7-17) mg/dL Creatinine (0.7-1.2) mg/dL Est GFR ( Amer) Est GFR (Non-Af Amer) POC Glucose (mg/dL) 136 H 141 H (65-110) mg/dL Random Glucose (65-105) mg/dL Calcium (8.6-10.4) mg/dl Phosphorus (2.5-4.5) mg/dL Magnesium (1.6-2.3) mg/dL Total Bilirubin (0.2-1.3) mg/dL AST (14-36) U/L ALT (9-52) U/L Alkaline Phosphatase (38-126) U/L Total Protein (6.3-8.3) g/dL Albumin (3.5-5.0) g/dL Globulin (2.2-3.9) gm/dL Albumin/Globulin Ratio (1.0-2.1) Arterial Blood Potassium 3.6 (3.6-5.2) mmol/L Ur L.pneumophila Ag (NEGATIVE) Mycoplasma pneumon IgM (NEGATIVE) 05/19/18 05/19/18 05/19/18 Range/Units 17:49 11:56 11:25 WBC (4.8-10.8) K/uL RBC (3.80-5.20) Mil/uL Hgb (11.0-16.0) g/dL Hct (34.0-47.0) % MCV (81.0-99.0) fL MCH (27.0-31.0) pg MCHC (33.0-37.0) g/dL RDW (11.5-14.5) % Plt Count (130-400) K/uL MPV (7.2-11.7) fL Neut % (Auto) (50.0-75.0) % Lymph % (Auto) (20.0-40.0) % Mobile % (Auto) (0.0-10.0) % Eos % (Auto) (0.0-4.0) % Baso % (Auto) (0.0-2.0) % Neut # (Auto) (1.8-7.0) K/uL Lymph # (Auto) (1.0-4.3) K/uL Mobile # (Auto) (0.0-0.8) K/uL Eos # (Auto) (0.0-0.7) K/uL Baso # (Auto) (0.0-0.2) K/uL Neutrophils % (Manual) (50-75) % Band Neutrophils % (0-2) % Lymphocytes % (Manual) Monocytes % (Manual) (0-10) % Platelet Estimate (NORMAL) Polychromasia Hypochromasia (manual) Anisocytosis (manual) Macrocytosis (manual) Puncture Site pCO2 (35-45) mm/Hg pO2 (80-100) mm/Hg HCO3 (21-28) mmol/L ABG pH (7.35-7.45) ABG Total CO2 (22-28) mmol/L ABG O2 Saturation (95-98) % ABG Base Excess (-2.0-3.0) mmol/L Nicolás Test ABG Potassium (3.6-5.2) mmol/L A-a O2 Difference mm/Hg Respiratory Index Sodium (132-148) mmol/l Chloride (98-107) mmol/L Glucose (65-105) mg/dl Lactate (0.7-2.1) mmol/L Vent Mode Mechanical Rate FiO2 % Tidal Volume PEEP Potassium (3.6-5.2) mmol/L Carbon Dioxide (22-30) mmol/L Anion Gap (10-20) BUN (7-17) mg/dL Creatinine (0.7-1.2) mg/dL Est GFR ( Amer) Est GFR (Non-Af Amer) POC Glucose (mg/dL) 178 H 178 H (65-110) mg/dL Random Glucose (65-105) mg/dL Calcium (8.6-10.4) mg/dl Phosphorus (2.5-4.5) mg/dL Magnesium (1.6-2.3) mg/dL Total Bilirubin (0.2-1.3) mg/dL AST (14-36) U/L ALT (9-52) U/L Alkaline Phosphatase (38-126) U/L Total Protein (6.3-8.3) g/dL Albumin (3.5-5.0) g/dL Globulin (2.2-3.9) gm/dL Albumin/Globulin Ratio (1.0-2.1) Arterial Blood Potassium (3.6-5.2) mmol/L Ur L.pneumophila Ag (NEGATIVE) Mycoplasma pneumon IgM Negative (NEGATIVE) 05/19/18 05/19/18 Range/Units 05:47 05:15 WBC (4.8-10.8) K/uL RBC (3.80-5.20) Mil/uL Hgb (11.0-16.0) g/dL Hct (34.0-47.0) % MCV (81.0-99.0) fL MCH (27.0-31.0) pg MCHC (33.0-37.0) g/dL RDW (11.5-14.5) % Plt Count (130-400) K/uL MPV (7.2-11.7) fL Neut % (Auto) (50.0-75.0) % Lymph % (Auto) (20.0-40.0) % Mobile % (Auto) (0.0-10.0) % Eos % (Auto) (0.0-4.0) % Baso % (Auto) (0.0-2.0) % Neut # (Auto) (1.8-7.0) K/uL Lymph # (Auto) (1.0-4.3) K/uL Mobile # (Auto) (0.0-0.8) K/uL Eos # (Auto) (0.0-0.7) K/uL Baso # (Auto) (0.0-0.2) K/uL Neutrophils % (Manual) (50-75) % Band Neutrophils % (0-2) % Lymphocytes % (Manual) Monocytes % (Manual) (0-10) % Platelet Estimate (NORMAL) Polychromasia Hypochromasia (manual) Anisocytosis (manual) Macrocytosis (manual) Puncture Site pCO2 (35-45) mm/Hg pO2 (80-100) mm/Hg HCO3 (21-28) mmol/L ABG pH (7.35-7.45) ABG Total CO2 (22-28) mmol/L ABG O2 Saturation (95-98) % ABG Base Excess (-2.0-3.0) mmol/L Nicolás Test ABG Potassium (3.6-5.2) mmol/L A-a O2 Difference mm/Hg Respiratory Index Sodium (132-148) mmol/l Chloride (98-107) mmol/L Glucose (65-105) mg/dl Lactate (0.7-2.1) mmol/L Vent Mode Mechanical Rate FiO2 % Tidal Volume PEEP Potassium (3.6-5.2) mmol/L Carbon Dioxide (22-30) mmol/L Anion Gap (10-20) BUN (7-17) mg/dL Creatinine (0.7-1.2) mg/dL Est GFR ( Amer) Est GFR (Non-Af Amer) POC Glucose (mg/dL) 146 H (65-110) mg/dL Random Glucose (65-105) mg/dL Calcium (8.6-10.4) mg/dl Phosphorus (2.5-4.5) mg/dL Magnesium (1.6-2.3) mg/dL Total Bilirubin (0.2-1.3) mg/dL AST (14-36) U/L ALT (9-52) U/L Alkaline Phosphatase (38-126) U/L Total Protein (6.3-8.3) g/dL Albumin (3.5-5.0) g/dL Globulin (2.2-3.9) gm/dL Albumin/Globulin Ratio (1.0-2.1) Arterial Blood Potassium (3.6-5.2) mmol/L Ur L.pneumophila Ag Negative (NEGATIVE) Mycoplasma pneumon IgM (NEGATIVE) Laboratory Results - last 24 hr 05/19/18 05/19/18 05/19/18 05:15 05:47 11:25 WBC RBC Hgb Hct MCV MCH MCHC RDW Plt Count MPV Neut % (Auto) Lymph % (Auto) Mobile % (Auto) Eos % (Auto) Baso % (Auto) Neut # (Auto) Lymph # (Auto) Mobile # (Auto) Eos # (Auto) Baso # (Auto) Neutrophils % (Manual) Band Neutrophils % Lymphocytes % (Manual) Monocytes % (Manual) Platelet Estimate Polychromasia Hypochromasia (manual) Anisocytosis (manual) Macrocytosis (manual) Puncture Site pCO2 pO2 HCO3 ABG pH ABG Total CO2 ABG O2 Saturation ABG Base Excess Nicolás Test ABG Potassium A-a O2 Difference Respiratory Index Sodium Chloride Glucose Lactate Vent Mode Mechanical Rate FiO2 Tidal Volume PEEP Potassium Carbon Dioxide Anion Gap BUN Creatinine Est GFR ( Amer) Est GFR (Non-Af Amer) POC Glucose (mg/dL) 146 H 178 H Random Glucose Calcium Phosphorus Magnesium Total Bilirubin AST ALT Alkaline Phosphatase Total Protein Albumin Globulin Albumin/Globulin Ratio Arterial Blood Potassium Ur L.pneumophila Ag Negative Mycoplasma pneumon IgM 05/19/18 05/19/18 05/20/18 11:56 17:49 00:10 WBC RBC Hgb Hct MCV MCH MCHC RDW Plt Count MPV Neut % (Auto) Lymph % (Auto) Mobile % (Auto) Eos % (Auto) Baso % (Auto) Neut # (Auto) Lymph # (Auto) Mobile # (Auto) Eos # (Auto) Baso # (Auto) Neutrophils % (Manual) Band Neutrophils % Lymphocytes % (Manual) Monocytes % (Manual) Platelet Estimate Polychromasia Hypochromasia (manual) Anisocytosis (manual) Macrocytosis (manual) Puncture Site pCO2 pO2 HCO3 ABG pH ABG Total CO2 ABG O2 Saturation ABG Base Excess Nicolás Test ABG Potassium A-a O2 Difference Respiratory Index Sodium Chloride Glucose Lactate Vent Mode Mechanical Rate FiO2 Tidal Volume PEEP Potassium Carbon Dioxide Anion Gap BUN Creatinine Est GFR ( Amer) Est GFR (Non-Af Amer) POC Glucose (mg/dL) 178 H 141 H Random Glucose Calcium Phosphorus Magnesium Total Bilirubin AST ALT Alkaline Phosphatase Total Protein Albumin Globulin Albumin/Globulin Ratio Arterial Blood Potassium Ur L.pneumophila Ag Mycoplasma pneumon IgM Negative 05/20/18 05/20/18 05/20/18 05:05 05:14 05:47 WBC 31.1 H RBC 2.40 L Hgb 7.9 L Hct 24.6 L MCV 102.3 H MCH 32.7 H MCHC 32.0 L RDW 16.6 H Plt Count 47 L MPV 11.1 Neut % (Auto) 95.0 H Lymph % (Auto) 2.3 L Mobile % (Auto) 2.5 Eos % (Auto) 0.1 Baso % (Auto) 0.1 Neut # (Auto) 29.6 H Lymph # (Auto) 0.7 L Mobile # (Auto) 0.8 Eos # (Auto) 0.0 Baso # (Auto) 0.0 Neutrophils % (Manual) 86 H Band Neutrophils % 12 H* Lymphocytes % (Manual) TEST NOT PERFORMED Monocytes % (Manual) 2 Platelet Estimate Decreased L Polychromasia Slight Hypochromasia (manual) Slight Anisocytosis (manual) Slight Macrocytosis (manual) Slight Puncture Site L rad pCO2 40 pO2 128 H HCO3 26.0 ABG pH 7.42 ABG Total CO2 27.1 ABG O2 Saturation 96.9 ABG Base Excess 1.3 Nicolás Test Pos ABG Potassium 3.6 A-a O2 Difference 143.0 Respiratory Index 1.1 Sodium 140.0 Chloride 107.0 Glucose 98 Lactate 1.1 Vent Mode Prvc Mechanical Rate 18 FiO2 45.0 Tidal Volume 400 PEEP 5 Potassium Carbon Dioxide Anion Gap BUN Creatinine Est GFR ( Amer) Est GFR (Non-Af Amer) POC Glucose (mg/dL) 136 H Random Glucose Calcium Phosphorus Magnesium Total Bilirubin AST ALT Alkaline Phosphatase Total Protein Albumin Globulin Albumin/Globulin Ratio Arterial Blood Potassium 3.6 Ur L.pneumophila Ag Mycoplasma pneumon IgM 05/20/18 05/20/18 05:47 11:21 WBC RBC Hgb Hct MCV MCH MCHC RDW Plt Count MPV Neut % (Auto) Lymph % (Auto) Mobile % (Auto) Eos % (Auto) Baso % (Auto) Neut # (Auto) Lymph # (Auto) Mobile # (Auto) Eos # (Auto) Baso # (Auto) Neutrophils % (Manual) Band Neutrophils % Lymphocytes % (Manual) Monocytes % (Manual) Platelet Estimate Polychromasia Hypochromasia (manual) Anisocytosis (manual) Macrocytosis (manual) Puncture Site pCO2 pO2 HCO3 ABG pH ABG Total CO2 ABG O2 Saturation ABG Base Excess Nicolás Test ABG Potassium A-a O2 Difference Respiratory Index Sodium 136 Chloride 103 Glucose Lactate Vent Mode Mechanical Rate FiO2 Tidal Volume PEEP Potassium 3.8 Carbon Dioxide 27 Anion Gap 11 BUN 51 H Creatinine 2.9 H Est GFR ( Amer) 19 Est GFR (Non-Af Amer) 16 POC Glucose (mg/dL) 149 H Random Glucose 100 D Calcium 7.9 L Phosphorus 3.5 Magnesium 2.1 Total Bilirubin 1.0 AST 36 ALT 24 Alkaline Phosphatase 148 H D Total Protein 4.9 L Albumin 2.5 L Globulin 2.4 Albumin/Globulin Ratio 1.1 Arterial Blood Potassium Ur L.pneumophila Ag Mycoplasma pneumon IgM Radiology Impressions: Radiology Impressions Chest X-Ray 05/20/18 06:00 IMPRESSION: Mid to inferior pulmonary airspace disease at the left chest with borderline CHF present. Stable cardiomegaly. Attending/Attestation - Attestation I have personally seen and examined this patient.: Yes I have fully participated in the care of the patient.: Yes I have reviewed all pertinent clinical information: Yes Notes (Text): 05/20/18 15:56 Patient seen and examined in the intensive care unit. Case discussed with housestaff in the morning rounds. Status post hemodialysis Ventilatory support tolerated CPAP yesterday CPAP trial again today after dialysis Continue antibiotics Elevated white count noted Consider adding antifungal
[2018-05-20] MEDS: Multivitamin Vitamin B Complex (Nephro-Vite) Tab PO SCH (07:48)
[2018-05-20] MEDS: Aztreonam 1 GM in Sodium Chloride 0.9% 100 ML IVPB SCH ×2 (07:48→20:13)
[2018-05-20] MEDS: Acetaminophen 650mg/20.3ml solution UD PO PRN (08:13)
[2018-05-20 08:25] LABS: ANISOCYTOSIS SLIGHT; BANDS 12 % (0-2); MONOCYTE 2 % (0-10); NEUTROPHIL 86 % (50-75); TOTAL CELLS COUNTED 100
[2018-05-20 08:26] LABS: HYPOCHROMIC SLIGHT; POLYCHROMIC SLIGHT
[2018-05-20 08:41] LABS: PLATELET ESTIMATE DECREASED (NORMAL)
[2018-05-20] MEDS ORDERED: Vancomycin 1 gm/NS 200 ml 1 GM/200 ML BAG IVPB SCH (09:00)
[2018-05-20] MEDS: EPOETIN ALFA 10,000 UNIT/ML ML SC SCH (09:40)
[2018-05-20] MEDS ORDERED: EPOETIN ALFA 10,000 UNIT/ML ML IV SCH (10:00)
--- NOTE | 2018-05-20 13:57 | RAD ---
Date of service: 05/20/2018 HISTORY: eval interval change COMPARISON: Portable chest 05/19/2018. TECHNIQUE: 1 view obtained. FINDINGS: LUNGS: Endotracheal and nasogastric tubes appear in stable position once again with right central venous dialysis catheter unchanged as well. Stable cardiomegaly. Limited pulmonary vascular congestion is appreciated, improved in the interval. Diminishing mid to inferior left sided airspace disease. PLEURA: No significant pleural effusion identified, no pneumothorax apparent. CARDIOVASCULAR: Calcific atherosclerotic changes are seen related to the thoracic aorta. Normal cardiac size. No pulmonary vascular congestion. OSSEOUS STRUCTURES: No significant abnormalities. VISUALIZED UPPER ABDOMEN: Normal. OTHER FINDINGS: None. IMPRESSION: Mid to inferior pulmonary airspace disease at the left chest with borderline CHF present. Stable cardiomegaly.
--- NOTE | 2018-05-20 15:03 | CP.PCM.PN ---
Subjective - Date & Time of Evaluation Date of Evaluation: 05/20/18 Time of Evaluation: 15:01 - Subjective Subjective: Nephrology Follow up Note HPI: 72-year-old female with a history of CHF, CAD, hypertension, hyperlipidemia, history of thyroid disease and renal disease, patient admitted to the hospital with a complaining of left lower extremity pain swelling of one day duration along with fever, followed by code sepsis, hypotension leading to resp distress and current intubation. Hx is obtained from charts. currrently intubated on pressors unknown baseline kidney disease, cr is now 3.1 UOP 10-15 cc per hour. on iv fluids and pressors Past medical history: Had a history of congestive heart failure, coronary artery disease, diabetes, hypertension, hypothyroidism, renal insufficiency. Patient has allergic to penicillin Surgical history include coronary artery bypass grafting x2 Social history: No smoking or drinking history noted Family history significant for diabetes and heart disease Medications at this time not available. 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 On ventilator. FiO2 40% PEEP 5 Chest bilateral air entry but with basal rales + Heart sounds are regular Abdomen soft nontender. edema ++ awake but bit agitated Left lower extremity erythema, blisters, and swelling noted Assesment: critical oligoanuric ARRON likely ATN/septic shock with cellulitis and ? 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 Avoid hypotension. Patient not on ACEI/ARB due to recent ARRON Monitor Input/Output, daily weights and renal function with basic metabolic panel anemia management per primary team. will add Iron, MVI. PRBC as needed. epogen ordered supplement Vit D dose vanco by level. supplement lytes as needed on low dose levophed 1 mcg/min. consider inotropes if needed for hemodynamic support vin during dialysis Dose meds/antibiotics for reduced GFR. Avoid fleets enema/magnesium based laxatives. Avoid nephrotoxins/NSAIDs/ iodinated contrast (unless needed emergently) Glycemic control Further work up/management as per primary team Thanks for allowing me to participate in care of your patient. Will follow patient with you. Please call if any Qs. had d/w team Dr Edin Castro Office: [phone] Objective - Vital Signs/Intake and Output Vital Signs (last 24 hours): Temp Pulse Resp BP Pulse Ox 100 F H 70 17 121/48 L 100 05/20/18 13:00 05/20/18 14:00 05/20/18 14:00 05/20/18 14:00 05/20/18 14:00 Intake and Output: 05/20/18 05/20/18 06:59 18:59 Intake Total 930.1 729.3 Output Total 50 10 Balance 880.1 719.3 - Medications Medications: Current Medications Acetaminophen (Tylenol 650mg/20.3ml Solution Ud) 650 mg PO Q6 PRN PRN Reason: Fever >100.4 F or Pain Last Admin: 05/20/18 08:13 Dose: 650 mg Dextrose (Dextrose 50% Inj) 0 ml IV STAT PRN; Protocol PRN Reason: Hypoglycemia Protocol Last Admin: 05/18/18 18:17 Dose: 50 ml Dextrose (Glutose 15) 0 gm PO ONCE PRN; Protocol PRN Reason: Hypoglycemia Protocol Epoetin Anthony (Procrit) 10,000 unit IV MWF [facility] Ergocalciferol (Drisdol 50,000 Intl Units Cap) 1 cap PO Q7D [facility] Last Admin: 05/18/18 13:24 Dose: 1 cap Ferrous Gluconate (Fergon) 324 mg PO TID [facility] Last Admin: 05/20/18 13:45 Dose: 324 mg Glucagon (Glucagen Diagnostic Kit) 0 mg IM STAT PRN; Protocol PRN Reason: Hypoglycemia Protocol Heparin Sodium (Porcine) (Heparin) 5,000 units SC Q12H [facility] Last Admin: 05/19/18 05:17 Dose: 5,000 units Dexmedetomidine HCl 200 mcg/ (Sodium Chloride) 50 mls @ 3.4 mls/hr IV TITR PRN; Protocol PRN Reason: Sedation Last Titration: 05/20/18 14:39 Dose: 0.6 mcg/kg/hr, 10.21 mls/hr Norepinephrine Bitartrate 8 mg (/ Sodium Chloride) 258 mls @ 7.74 mls/hr IV .Q24H PRN; Protocol PRN Reason: TITRATE PER MD ORDER Last Titration: 05/20/18 12:39 Dose: 2 mcg/min, 3.87 mls/hr Dextrose (Dextrose 5% In Water 1000 Ml) 1,000 mls @ 0 mls/hr IV .Q0M PRN; Protocol PRN Reason: Hypoglycemia Protocol Aztreonam 1 gm/ Sodium (Chloride) 100 mls @ 100 mls/hr IVPB Q12H [facility]; Protocol Last Admin: 05/20/18 07:48 Dose: 100 mls/hr Clindamycin Phosphate 600 mg/ (Sodium Chloride) 54 mls @ 100 mls/hr IVPB Q8H [facility]; Protocol Last Admin: 05/20/18 13:47 Dose: 100 mls/hr Vancomycin/Sodium Chloride (Vancomycin 1 Gm/Ns 200 Ml) 1 gm in 200 mls @ 133.3 33 mls/hr IVPB MWF [facility]; Protocol Stop: 05/25/18 09:01 Last Admin: 05/20/18 09:30 Dose: Not Given Insulin Aspart (Novolog) 0 unit SC Q6 [facility]; Protocol Last Admin: 05/20/18 11:33 Dose: Not Given Pantoprazole Sodium (Protonix Inj) 40 mg IVP DAILY [facility] Last Admin: 05/20/18 09:13 Dose: 40 mg Vitamin B Complex/Vit C/Folic Acid (Nephro-Pancho) 1 tab PO 0800 [facility] Last Admin: 05/20/18 07:48 Dose: 1 tab - Labs Labs: 05/20/18 05:47 05/20/18 05:47 PT 19.8 SECONDS (9.7-12.2) H 05/17/18 06:09 INR 1.8 05/17/18 06:09 APTT 40 SECONDS (21-34) H D 05/17/18 06:09
[2018-05-20] MEDS: Epoetin Alfa 10,000 unit/ml Dialysis IV SCH (15:23)
--- NOTE | 2018-05-20 17:01 | CP.PCM.PN ---
Subjective - Date & Time of Evaluation Date of Evaluation: 05/20/18 Time of Evaluation: 09:00 - Subjective Subjective: remains vented non verbal fever and leukocytosis persist limited imaging of LLE neg thus far consider CT LLE when stable severe sepsis/ necrotizing cellulitis/ resp failure and pneumonia IV rx renewed Objective - Vital Signs/Intake and Output Vital Signs (last 24 hours): Temp Pulse Resp BP Pulse Ox 98.7 F 68 18 137/54 L 100 05/20/18 16:00 05/20/18 16:00 05/20/18 16:00 05/20/18 16:00 05/20/18 16:00 Intake and Output: 05/20/18 05/20/18 06:59 18:59 Intake Total 930.1 745.3 Output Total 50 10 Balance 880.1 735.3 - Medications Medications: Current Medications Acetaminophen (Tylenol 650mg/20.3ml Solution Ud) 650 mg PO Q6 PRN PRN Reason: Fever >100.4 F or Pain Last Admin: 05/20/18 08:13 Dose: 650 mg Dextrose (Dextrose 50% Inj) 0 ml IV STAT PRN; Protocol PRN Reason: Hypoglycemia Protocol Last Admin: 05/18/18 18:17 Dose: 50 ml Dextrose (Glutose 15) 0 gm PO ONCE PRN; Protocol PRN Reason: Hypoglycemia Protocol Epoetin Anthony (Procrit) 10,000 unit IV MWF [facility] Last Admin: 05/20/18 15:23 Dose: 10,000 unit Ergocalciferol (Drisdol 50,000 Intl Units Cap) 1 cap PO Q7D [facility] Last Admin: 05/18/18 13:24 Dose: 1 cap Ferrous Gluconate (Fergon) 324 mg PO TID [facility] Last Admin: 05/20/18 13:45 Dose: 324 mg Glucagon (Glucagen Diagnostic Kit) 0 mg IM STAT PRN; Protocol PRN Reason: Hypoglycemia Protocol Heparin Sodium (Porcine) (Heparin) 5,000 units SC Q12H [facility] Last Admin: 05/19/18 05:17 Dose: 5,000 units Dexmedetomidine HCl 200 mcg/ (Sodium Chloride) 50 mls @ 3.4 mls/hr IV TITR PRN; Protocol PRN Reason: Sedation Last Titration: 05/20/18 14:39 Dose: 0.6 mcg/kg/hr, 10.21 mls/hr Norepinephrine Bitartrate 8 mg (/ Sodium Chloride) 258 mls @ 7.74 mls/hr IV .Q24H PRN; Protocol PRN Reason: TITRATE PER MD ORDER Last Titration: 05/20/18 16:20 Dose: 1 mcg/min, 1.94 mls/hr Dextrose (Dextrose 5% In Water 1000 Ml) 1,000 mls @ 0 mls/hr IV .Q0M PRN; Protocol PRN Reason: Hypoglycemia Protocol Aztreonam 1 gm/ Sodium (Chloride) 100 mls @ 100 mls/hr IVPB Q12H [facility]; Protocol Last Admin: 05/20/18 07:48 Dose: 100 mls/hr Clindamycin Phosphate 600 mg/ (Sodium Chloride) 54 mls @ 100 mls/hr IVPB Q8H [facility]; Protocol Last Admin: 05/20/18 13:47 Dose: 100 mls/hr Vancomycin/Sodium Chloride (Vancomycin 1 Gm/Ns 200 Ml) 1 gm in 200 mls @ 133.333 mls/hr IVPB MWF [facility]; Protocol Stop: 05/25/18 09:01 Last Admin: 05/20/18 09:30 Dose: Not Given Micafungin Sodium 100 mg/ (Sodium Chloride) 100 mls @ 100 mls/hr IV Q24H [facility]; Protocol Insulin Aspart (Novolog) 0 unit SC Q6 [facility]; Protocol Last Admin: 05/20/18 11:33 Dose: Not Given Pantoprazole Sodium (Protonix Inj) 40 mg IVP DAILY [facility] Last Admin: 05/20/18 09:13 Dose: 40 mg Vitamin B Complex/Vit C/Folic Acid (Nephro-Pancho) 1 tab PO 0800 [facility] Last Admin: 05/20/18 07:48 Dose: 1 tab - Labs Labs: 05/20/18 05:47 05/20/18 05:47 PT 19.8 SECONDS (9.7-12.2) H 05/17/18 06:09 INR 1.8 05/17/18 06:09 APTT 40 SECONDS (21-34) H D 05/17/18 06:09 - Constitutional Appears: No Acute Distress, Chronically Ill - Head Exam Head Exam: NORMOCEPHALIC - Eye Exam Eye Exam: absent: Scleral icterus - ENT Exam ENT Exam: Mucous Membranes Dry - Neck Exam Neck Exam: absent: Lymphadenopathy - Respiratory Exam Respiratory Exam: Decreased Breath Sounds - Cardiovascular Exam Cardiovascular Exam: Tachycardia, REGULAR RHYTHM - GI/Abdominal Exam GI & Abdominal Exam: Distended, Soft - Rectal Exam Rectal Exam: Deferred - Exam Exam: NORMAL INSPECTION - Extremities Exam Extremities Exam: Pedal Edema - Back Exam Back Exam: absent: CVA tenderness (L), CVA tenderness (R) - Neurological Exam Neurological Exam: Altered - Psychiatric Exam Psychiatric exam: Depressed Assessment and Plan (1) Multi-organ system dysfunction Status: Acute (2) Septic shock Status: Acute (3) Cellulitis of left lower extremity Status: Acute (4) Coagulopathy Status: Acute (5) Pancytopenia Status: Acute (6) Sepsis Status: Acute (7) Respiratory failure requiring intubation Status: Acute (8) Respiratory failure with hypoxia and hypercapnia Status: Acute (9) ARRON (acute kidney injury) Status: Acute - Assessment and Plan (Free Text) Assessment: fever and leukocytosis persist limited imaging of LLE neg thus far consider CT LLE when stable severe sepsis/ necrotizing cellulitis/ resp failure and pneumonia IV rx renewed
--- NOTE | 2018-05-20 17:30 | CP.PCM.PN ---
Subjective - Date & Time of Evaluation Date of Evaluation: 05/20/18 Time of Evaluation: 17:27 - Subjective Subjective: Podiatry Progress Note for Dr. Zhu 72F seen and evaluated at bedside for b/l leg swelling with serous bullae. Patient is still intubated at this time. Per nursing, no acute overnight events. Objective - Vital Signs/Intake and Output Vital Signs (last 24 hours): Temp Pulse Resp BP Pulse Ox 98.7 F 68 18 137/54 L 100 05/20/18 16:00 05/20/18 16:00 05/20/18 16:00 05/20/18 16:00 05/20/18 16:00 Intake and Output: 05/20/18 05/20/18 06:59 18:59 Intake Total 930.1 760.3 Output Total 50 10 Balance 880.1 750.3 - Medications Medications: Current Medications Acetaminophen (Tylenol 650mg/20.3ml Solution Ud) 650 mg PO Q6 PRN PRN Reason: Fever >100.4 F or Pain Last Admin: 05/20/18 08:13 Dose: 650 mg Dextrose (Dextrose 50% Inj) 0 ml IV STAT PRN; Protocol PRN Reason: Hypoglycemia Protocol Last Admin: 05/18/18 18:17 Dose: 50 ml Dextrose (Glutose 15) 0 gm PO ONCE PRN; Protocol PRN Reason: Hypoglycemia Protocol Epoetin Anthony (Procrit) 10,000 unit IV MWF [facility] Last Admin: 05/20/18 15:23 Dose: 10,000 unit Ergocalciferol (Drisdol 50,000 Intl Units Cap) 1 cap PO Q7D [facility] Last Admin: 05/18/18 13:24 Dose: 1 cap Ferrous Gluconate (Fergon) 324 mg PO TID [facility] Last Admin: 05/20/18 13:45 Dose: 324 mg Glucagon (Glucagen Diagnostic Kit) 0 mg IM STAT PRN; Protocol PRN Reason: Hypoglycemia Protocol Heparin Sodium (Porcine) (Heparin) 5,000 units SC Q12H [facility] Last Admin: 05/19/18 05:17 Dose: 5,000 units Dexmedetomidine HCl 200 mcg/ (Sodium Chloride) 50 mls @ 3.4 mls/hr IV TITR PRN; Protocol PRN Reason: Sedation Last Admin: 05/20/18 17:00 Dose: 0.5 mcg/kg/hr, 8.5 mls/hr Norepinephrine Bitartrate 8 mg (/ Sodium Chloride) 258 mls @ 7.74 mls/hr IV .Q24H PRN; Protocol PRN Reason: TITRATE PER MD ORDER Last Titration: 05/20/18 16:20 Dose: 1 mcg/min, 1.94 mls/hr Dextrose (Dextrose 5% In Water 1000 Ml) 1,000 mls @ 0 mls/hr IV .Q0M PRN; Protocol PRN Reason: Hypoglycemia Protocol Aztreonam 1 gm/ Sodium (Chloride) 100 mls @ 100 mls/hr IVPB Q12H [facility]; Protocol Last Admin: 05/20/18 07:48 Dose: 100 mls/hr Clindamycin Phosphate 600 mg/ (Sodium Chloride) 54 mls @ 100 mls/hr IVPB Q8H [facility]; Protocol Last Admin: 05/20/18 13:47 Dose: 100 mls/hr Vancomycin/Sodium Chloride (Vancomycin 1 Gm/Ns 200 Ml) 1 gm in 200 mls @ 133.333 mls/hr IVPB MWF [facility]; Protocol Stop: 05/25/18 09:01 Last Admin: 05/20/18 09:30 Dose: Not Given Micafungin Sodium 100 mg/ (Sodium Chloride) 100 mls @ 100 mls/hr IV Q24H [facility]; Protocol Insulin Aspart (Novolog) 0 unit SC Q6 [facility]; Protocol Last Admin: 05/20/18 11:33 Dose: Not Given Pantoprazole Sodium (Protonix Inj) 40 mg IVP DAILY [facility] Last Admin: 05/20/18 09:13 Dose: 40 mg Vitamin B Complex/Vit C/Folic Acid (Nephro-Pancho) 1 tab PO 0800 [facility] Last Admin: 05/20/18 07:48 Dose: 1 tab - Labs Labs: 05/20/18 05:47 05/20/18 05:47 PT 19.8 SECONDS (9.7-12.2) H 05/17/18 06:09 INR 1.8 05/17/18 06:09 APTT 40 SECONDS (21-34) H D 05/17/18 06:09 - Constitutional Appears: No Acute Distress - Extremities Exam Additional comments: LE focused exam: Vasc: DP/PT pulses non-palpable, CFT < 3 seconds to all digits, skin temperature warm to warm from proximal to distal WNL, no erythema present. Diffuse 2+ pitting edema noted to b/l LE Neuro: Unable to assess secondary to patient mental state and intubation Derm: No open lesions, wounds, maceration, xerosis, or abnormal pigmentation noted. Three bullae noted to left leg, two lateral and one medial. Medial bullae is noted to be lysed at this time. Lateral bullae are tense and yellow in color. Do not appear to be hemmorhagic at this time. MSK: No gross deformities noted. Unable to assess ROM or MMT at this time - Neurological Exam Neurological Exam: Alert, Awake - Psychiatric Exam Psychiatric exam: Normal Affect, Normal Mood Assessment and Plan - Assessment and Plan (Free Text) Assessment: 72F seen and evaluated at bedside for b/l leg swelling with serous bullae Plan: Patient seen and evaluated with Dr. Zhu WBC 31.1, Afebrile Continue abx per ID All bullae lanced with #11 blade without incident and drained Cultures taken F/u wound cx Blood cx: Group C Strep Urine cx: E. coli Foot, ankle and tib/fib xrays show no evidence of soft tissue emphysema. Evidence of subcutaneous edema and cellulitis appreciated Bullae sites dressed with DSD, ABD No plan for surgical intervention at this time Podiatry will continue to follow while patient in house
[2018-05-20] MEDS: Micafungin 100 MG in Sodium Chloride 0.9% 100 ML IV SCH (17:35)
--- NOTE | 2018-05-20 19:02 | PCM.PROC ---
Procedures Attestation:: I certify that I have explained the specified Operation(s) or Procedure(s), risks, benefits and reasonable alternatives to the Patient and/or other person responsible. The opportunity was given to ask questions and all questions answered - Intubation Time Out Performed: No Sedative: None Laryngoscope: Brandt ET Tube Size: 7.5 ET Tube Uncuffed: No ET Tube Secured at Depth: 21 ET Tube Secured Locarion: Lips ET Tube Placement Confirmation: Visualized Passing Through Cords, Breath Sounds Equal Bilaterally, No Breath Sounds Over Epigastrum, Confirmation w/Capnometry Patient Tolerated Procedure: Well Procedure Immediate Complications: None
[2018-05-20 21:06] LABS: ABG ALLEN TEST POS; ARTERIAL BLOOD GAS HCO3 26.7 mmol/L (21-28); ARTERIAL BLOOD GAS O2 SAT 96.7 % (95-98); ARTERIAL BLOOD GAS PCO2 46 mm/Hg (35-45); ARTERIAL BLOOD GAS PH 7.39 (7.35-7.45); ARTERIAL BLOOD GAS PO2 119 mm/Hg (80-100); ARTERIAL BLOOD GAS TCO2 29.2 mmol/L (22-28)
--- NOTE | 2018-05-20 22:47 | CP.PCM.PN ---
Subjective - Date & Time of Evaluation Date of Evaluation: 05/20/18 Time of Evaluation: 19:00 - Subjective Subjective: Vented Objective - Vital Signs/Intake and Output Vital Signs (last 24 hours): Temp Pulse Resp BP Pulse Ox 98.7 F 52 L 18 103/47 L 100 05/20/18 16:00 05/20/18 21:14 05/20/18 21:14 05/20/18 21:14 05/20/18 21:14 Intake and Output: 05/20/18 05/21/18 18:59 06:59 Intake Total 1147.6 138.1 Output Total 10 Balance 1137.6 138.1 - Medications Medications: Current Medications Acetaminophen (Tylenol 650mg/20.3ml Solution Ud) 650 mg PO Q6 PRN PRN Reason: Fever >100.4 F or Pain Last Admin: 05/20/18 08:13 Dose: 650 mg Dextrose (Dextrose 50% Inj) 0 ml IV STAT PRN; Protocol PRN Reason: Hypoglycemia Protocol Last Admin: 05/18/18 18:17 Dose: 50 ml Dextrose (Glutose 15) 0 gm PO ONCE PRN; Protocol PRN Reason: Hypoglycemia Protocol Epoetin Anthony (Procrit) 10,000 unit IV MWF [facility] Last Admin: 05/20/18 15:23 Dose: 10,000 unit Ergocalciferol (Drisdol 50,000 Intl Units Cap) 1 cap PO Q7D [facility] Last Admin: 05/18/18 13:24 Dose: 1 cap Ferrous Gluconate (Fergon) 324 mg PO TID [facility] Last Admin: 05/20/18 17:36 Dose: 324 mg Glucagon (Glucagen Diagnostic Kit) 0 mg IM STAT PRN; Protocol PRN Reason: Hypoglycemia Protocol Heparin Sodium (Porcine) (Heparin) 5,000 units SC Q12H [facility] Last Admin: 05/19/18 05:17 Dose: 5,000 units Dexmedetomidine HCl 200 mcg/ (Sodium Chloride) 50 mls @ 3.4 mls/hr IV TITR PRN; Protocol PRN Reason: Sedation Last Titration: 05/20/18 19:00 Dose: 0.5 mcg/kg/hr, 8.5 mls/hr Norepinephrine Bitartrate 8 mg (/ Sodium Chloride) 258 mls @ 7.74 mls/hr IV .Q24H PRN; Protocol PRN Reason: TITRATE PER MD ORDER Last Titration: 05/20/18 18:45 Dose: 2 mcg/min, 3.87 mls/hr Dextrose (Dextrose 5% In Water 1000 Ml) 1,000 mls @ 0 mls/hr IV .Q0M PRN; Protocol PRN Reason: Hypoglycemia Protocol Aztreonam 1 gm/ Sodium (Chloride) 100 mls @ 100 mls/hr IVPB Q12H [facility]; Protocol Last Admin: 05/20/18 20:13 Dose: 100 mls/hr Clindamycin Phosphate 600 mg/ (Sodium Chloride) 54 mls @ 100 mls/hr IVPB Q8H [facility]; Protocol Last Admin: 05/20/18 21:58 Dose: 100 mls/hr Vancomycin/Sodium Chloride (Vancomycin 1 Gm/Ns 200 Ml) 1 gm in 200 mls @ 133.333 mls/hr IVPB MWF [facility]; Protocol Stop: 05/25/18 09:01 Last Admin: 05/20/18 09:30 Dose: Not Given Micafungin Sodium 100 mg/ (Sodium Chloride) 100 mls @ 100 mls/hr IV Q24H [facility]; Protocol Last Admin: 05/20/18 17:35 Dose: 100 mls/hr Insulin Aspart (Novolog) 0 unit SC Q6 [facility]; Protocol Last Admin: 05/20/18 18:00 Dose: Not Given Pantoprazole Sodium (Protonix Inj) 40 mg IVP DAILY [facility] Last Admin: 05/20/18 09:13 Dose: 40 mg Vitamin B Complex/Vit C/Folic Acid (Nephro-Pancho) 1 tab PO 0800 [facility] Last Admin: 05/20/18 07:48 Dose: 1 tab - Labs Labs: 05/20/18 05:47 05/20/18 05:47 PT 19.8 SECONDS (9.7-12.2) H 05/17/18 06:09 INR 1.8 05/17/18 06:09 APTT 40 SECONDS (21-34) H D 05/17/18 06:09 - Head Exam Head Exam: ATRAUMATIC - Eye Exam Eye Exam: Normal appearance - ENT Exam ENT Exam: Mucous Membranes Dry - Respiratory Exam Respiratory Exam: NORMAL BREATHING PATTERN - Cardiovascular Exam Cardiovascular Exam: +S1, +S2 - GI/Abdominal Exam GI & Abdominal Exam: Normal Bowel Sounds Assessment and Plan (1) Thrombocytopenia Assessment & Plan: sepsis cont. to monitor Status: Acute (2) Coagulopathy Assessment & Plan: sepsis nutritional repeat fibrinogen Status: Acute (3) Anemia Assessment & Plan: chronic disease and renal disease DAVID per renal transfusion support PRN Status: Acute
[2018-05-21 05:41] LABS: ABG ALLEN TEST POS; ARTERIAL BLOOD GAS HCO3 26.3 mmol/L (21-28); ARTERIAL BLOOD GAS O2 SAT 97.1 % (95-98); ARTERIAL BLOOD GAS PCO2 45 mm/Hg (35-45); ARTERIAL BLOOD GAS PH 7.39 (7.35-7.45); ARTERIAL BLOOD GAS PO2 123 mm/Hg (80-100); ARTERIAL BLOOD GAS TCO2 28.6 mmol/L (22-28)
[2018-05-21] MEDS: (Novolog) Insulin Aspart, Recombinant 100 u/ml 10 ml vial SC SCH ×4 (05:43→23:43)
[2018-05-21 06:30] LABS: BASO % 0.2 % (0.0-2.0); EOS # 0.4 K/uL (0.0-0.7); EOS % 1.8 % (0.0-4.0); HEMOGLOBIN 8.2 g/dL (11.0-16.0); LYMPH # 0.6 K/uL (1.0-4.3); LYMPH % 2.6 % (20.0-40.0); MEAN CELL VOLUME 102.1 fL (81.0-99.0); MEAN CORPUSCULAR HEMOGLOBIN 33.1 pg (27.0-31.0); MEAN CORPUSCULAR HGB CONC 32.4 g/dL (33.0-37.0); MEAN PLATELET VOLUME 11.2 fL (7.2-11.7); MONO % 4.3 % (0.0-10.0); NEUT # 21.5 K/uL (1.8-7.0); NEUT % 91.1 % (50.0-75.0); NRBC % 0.2 % (0.0-2.0); PLATELET COUNT 56 K/uL (130-400); RBC 2.46 Mil/uL (3.80-5.20); RED CELL DISTRIBUTION WIDTH 16.6 % (11.5-14.5); WHITE BLOOD COUNT 23.6 K/uL (4.8-10.8)
[2018-05-21 06:47] LABS: ALBUMIN 2.4 g/dL (3.5-5.0); CALCIUM 7.9 mg/dl (8.6-10.4)
--- NOTE | 2018-05-21 07:14 | PN ---
DATE: 05/20/2018 SUBJECTIVE: The patient is on the ventilator, supportive care, suctioning. Alison Harp MD
[2018-05-21] MEDS: Aztreonam 1 GM in Sodium Chloride 0.9% 100 ML IVPB SCH ×2 (08:00→19:44)
[2018-05-21 08:42] LABS: BANDS 3 % (0-2); LYMPHOCYTE 2 % (20-40); MONOCYTE 6 % (0-10); NEUTROPHIL 89 % (50-75); TOTAL CELLS COUNTED 100
[2018-05-21 08:43] LABS: ANISOCYTOSIS SLIGHT; HYPOCHROMIC SLIGHT; PLATELET ESTIMATE DECREASED (NORMAL); POLYCHROMIC SLIGHT
[2018-05-21] MEDS ORDERED: MethylPREDNISolone 40 mg Vial IVP STA (08:53)
[2018-05-21] MEDS ORDERED: DOBUTamine 500mg/250ml D5W 500 MG/250 ML BAG IV SCH (09:00)
[2018-05-21] MEDS: Multivitamin Vitamin B Complex (Nephro-Vite) Tab PO SCH (09:00)
--- NOTE | 2018-05-21 09:37 | RAD ---
Date of service: 05/21/2018 HISTORY: reintubated COMPARISON: Chest radiograph 05/20/2018 7:13 p.m.. TECHNIQUE: 1 view obtained. FINDINGS: Right central venous dialysis catheter unchanged in position as well as endotracheal tube. The nasogastric tube identified placed entering into the left virgilio abdomen with the tip off the image. LUNGS: No active pulmonary disease. PLEURA: No significant pleural effusion identified, no pneumothorax apparent. CARDIOVASCULAR: Calcific atherosclerotic changes are seen related to the thoracic aorta. Cardiomegaly unchanged. No pulmonary vascular congestion. 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 OSSEOUS STRUCTURES: No significant abnormalities. VISUALIZED UPPER ABDOMEN: Normal. OTHER FINDINGS: None. IMPRESSION: Stable nonacute chest radiograph with tube and catheter unchanged. Interval nasogastric tube deployment as discussed above, tip off the image. Stable cardiomegaly.
--- NOTE | 2018-05-21 10:01 | CP.CCUPN ---
<Kei Burns - Last Filed: 05/21/18 12:13> CCU Subjective - Physician Review Subjective (Free Text): ICU Progress Note for Dr. Charissa Fragoso Pt seen and examined at bedside. Currently intubated. Unable to obtain HPI or ROS due to pt's current clinical status. No acute events reported overnight by staff. CCU Objective - Vital Signs / Intake & Output Vital Signs (Last 4 hours): Vital Signs Temp Pulse Resp BP Pulse Ox 05/21/18 09:28 81 13 115/46 L 97 05/21/18 09:15 53 L 9 L 94/35 L 90 L 05/21/18 09:12 50 L 12 85/34 L 95 05/21/18 09:00 50 L 14 94 L 05/21/18 08:59 49 L 13 85/34 L 94 L 05/21/18 08:52 51 L 7 L 92/36 L 98 05/21/18 08:44 75 18 110/49 L 100 05/21/18 08:30 63 18 133/48 L 100 05/21/18 08:14 70 18 148/55 L 100 05/21/18 08:09 63 14 100 05/21/18 08:00 98.4 F 61 18 100 05/21/18 07:59 61 18 148/55 L 100 05/21/18 07:45 62 11 L 146/55 L 100 05/21/18 07:29 62 18 140/58 L 100 05/21/18 07:15 62 18 141/54 L 100 05/21/18 07:00 61 18 100 05/21/18 06:59 61 17 141/55 L 100 05/21/18 06:45 63 17 130/44 L 100 05/21/18 06:29 62 14 137/54 L 100 05/21/18 06:15 63 11 L 125/59 L 100 Intake and Output (Last 8hrs): Intake & Output 05/20/18 05/21/18 05/21/18 22:59 06:59 14:59 Intake Total 619.1 167.2 253.8 Balance 619.1 167.2 253.8 Weight 159 lb 9.835 oz Intake: IV 50 77 21 Intake, IV Amount 399.1 90.2 112.8 Left Forearm 72.5 71.2 6.8 Right Antecubital 300 100 Right Internal Jugular 26.6 19.0 6.0 Trialysis Catheter Tube Feeding 120 120 Other 50 Other: # Bowel Movements 1 - Physical Exam Head: Positive for: Atraumatic, Normocephalic Pupils: Positive for: PERRL Extroacular Muscles: Positive for: EOMI Conjunctiva: Positive for: Normal Ears: Positive for: Normal Mouth: Positive for: Moist Mucous Membranes Nose (External): Positive for: Atraumatic Respiratory/Chest: Positive for: Clear to Auscultation Cardiovascular: Positive for: Regular Rate and Rhythm Abdomen: Positive for: Normal Bowel Sounds. Negative for: Tenderness, Distention Upper Extremity: Positive for: Edema Lower Extremity: Positive for: Edema, Other (skin blisters noted on L anterior calf) Neurological: Positive for: Other (intubated) Psychiatric: Positive for: Other (intubated). Negative for: Alert, Oriented x 3 - Medications Active Medications: Active Medications Generic Name Dose Route Start Last Admin Trade Name Freq PRN Reason Stop Dose Admin Acetaminophen 650 mg 05/18/18 00:30 05/20/18 08:13 Tylenol 650mg/20.3ml Solution Ud PO 650 mg Q6 PRN Administration Fever >100.4 F or Pain Albuterol/Ipratropium 3 ml 05/21/18 14:00 Duoneb 3 Mg/0.5 Mg (3 Ml) Ud INH RQ6 [facility]ENCE Dextrose 0 ml 05/16/18 18:32 05/18/18 18:17 Dextrose 50% Inj IV 50 ml STAT PRN Administration Hypoglycemia Protocol Protocol Dextrose 0 gm 05/16/18 18:32 Glutose 15 PO ONCE PRN Hypoglycemia Protocol Protocol Epoetin Anthony 10,000 unit 05/20/18 15:30 05/20/18 15:23 Procrit IV 10,000 unit MWF [facility]ENCE Administration Ergocalciferol 1 cap 05/18/18 10:45 05/18/18 13:24 Drisdol 50,000 Intl Units Cap PO 1 cap Q7D LAURENCE Administration Ferrous Gluconate 324 mg 05/18/18 14:00 05/21/18 09:11 Fergon PO 324 mg TID LAURENCE Administration Glucagon 0 mg 05/16/18 18:32 Glucagen Diagnostic Kit IM STAT PRN Hypoglycemia Protocol Protocol Heparin Sodium (Porcine) 5,000 units 05/16/18 17:45 05/19/18 05:17 Heparin SC 5,000 units Q12H LA[facility]ENCE Administration Dextrose 1,000 mls @ 0 mls/hr 05/16/18 18:32 Dextrose 5% In Water 1000 Ml IV .Q0M PRN Hypoglycemia Protocol Protocol Per Protocol Aztreonam 1 gm/ Sodium 100 mls @ 100 mls/hr 05/17/18 20:00 05/21/18 08:00 Chloride IVPB 100 mls/hr Q12H [facility] Administration Protocol Clindamycin Phosphate 600 mg/ 54 mls @ 100 mls/hr 05/17/18 22:00 05/21/18 05:40 Sodium Chloride IVPB 100 mls/hr Q8H [facility] Administration Protocol Vancomycin/Sodium Chloride 1 gm in 200 mls @ 133.333 mls/hr 05/20/18 09:00 05/20/18 09:30 Vancomycin 1 Gm/Ns 200 Ml IVPB 05/25/18 09:01 Not Given MWF [facility] Protocol Micafungin Sodium 100 mg/ 100 mls @ 100 mls/hr 05/20/18 18:00 05/20/18 17:35 Sodium Chloride IV 100 mls/hr Q24H [facility] Administration Protocol Dobutamine HCl/Dextrose 500 mg in 250 mls @ 5.43 mls/hr 05/21/18 09:00 05/21/18 09:12 Dobutamine/Dextrose 5% 500mg/250ml IV 2.5 mcg/kg/min .Q24H LA[facility]ENCE 5.43 mls/hr Administration Protocol 2.5 MCG/KG/MIN Insulin Aspart 0 unit 05/18/18 00:00 05/21/18 05:43 Novolog SC Not Given Q6 [facility] Protocol Methylprednisolone 40 mg 05/21/18 15:00 Solu-Medrol IVP Q8H LA[facility] Montelukast Sodium 10 mg 05/21/18 22:00 Singulair PO HS LAURENCE Pantoprazole Sodium 40 mg 05/17/18 10:00 05/21/18 09:12 Protonix Inj IVP 40 mg DAILY [facility] Administration Vitamin B Complex/Vit C/Folic Acid 1 tab 05/19/18 08:00 05/21/18 09:00 Nephro-Pancho PO 1 tab 0800 LA[facility]ENCE Administration - Patient Studies Lab Studies: Microbiology Studies 05/19/18 15:55 Blood Culture - Preliminary Blood NO GROWTH AFTER 24 HOURS 05/19/18 16:05 Blood Culture - Preliminary Blood NO GROWTH AFTER 24 HOURS 05/20/18 09:04 Gram Stain - Final Leg - Left 05/19/18 11:56 Gram Stain - Final Sputum Sputum Culture - Preliminary Gram Negative Ramón Lab Studies 05/21/18 05/21/18 05/21/18 Range/Units 06:22 06:22 06:22 WBC 23.6 H (4.8-10.8) K/uL RBC 2.46 L (3.80-5.20) Mil/uL Hgb 8.2 L (11.0-16.0) g/dL Hct 25.2 L (34.0-47.0) % MCV 102.1 H (81.0-99.0) fL MCH 33.1 H (27.0-31.0) pg MCHC 32.4 L (33.0-37.0) g/dL RDW 16.6 H (11.5-14.5) % Plt Count 56 L (130-400) K/uL MPV 11.2 (7.2-11.7) fL Neut % (Auto) 91.1 H (50.0-75.0) % Lymph % (Auto) 2.6 L (20.0-40.0) % [place] % (Auto) 4.3 (0.0-10.0) % Eos % (Auto) 1.8 (0.0-4.0) % Baso % (Auto) 0.2 (0.0-2.0) % Neut # (Auto) 21.5 H (1.8-7.0) K/uL Lymph # (Auto) 0.6 L (1.0-4.3) K/uL [place] # (Auto) 1.0 H (0.0-0.8) K/uL Eos # (Auto) 0.4 (0.0-0.7) K/uL Baso # (Auto) 0.0 (0.0-0.2) K/uL Neutrophils % (Manual) 89 H (50-75) % Band Neutrophils % 3 H (0-2) % Lymphocytes % (Manual) 2 L (20-40) % Monocytes % (Manual) 6 (0-10) % Platelet Estimate Decreased L (NORMAL) Polychromasia Slight Hypochromasia (manual) Slight Anisocytosis (manual) Slight Macrocytosis (manual) Slight Fibrinogen 418 H (200-400) mg/dL Puncture Site pCO2 (35-45) mm/Hg pO2 (80-100) mm/Hg HCO3 (21-28) mmol/L ABG pH (7.35-7.45) ABG Total CO2 (22-28) mmol/L ABG O2 Saturation (95-98) % ABG Base Excess (-2.0-3.0) mmol/L Nicolás Test ABG Potassium (3.6-5.2) mmol/L A-a O2 Difference mm/Hg Respiratory Index Sodium 139 (132-148) mmol/l Chloride 103 (98-107) mmol/L Glucose (65-105) mg/dl Lactate (0.7-2.1) mmol/L Vent Mode Mechanical Rate FiO2 % Tidal Volume PEEP Potassium 3.7 (3.6-5.2) mmol/L Carbon Dioxide 29 (22-30) mmol/L Anion Gap 11 (10-20) BUN 40 H (7-17) mg/dL Creatinine 2.4 H (0.7-1.2) mg/dL Est GFR ( Amer) 24 Est GFR (Non-Af Amer) 20 POC Glucose (mg/dL) (65-110) mg/dL Random Glucose 107 H (65-105) mg/dL Calcium 7.9 L (8.6-10.4) mg/dl Total Bilirubin 1.0 (0.2-1.3) mg/dL AST 27 (14-36) U/L ALT 34 (9-52) U/L Alkaline Phosphatase 157 H (38-126) U/L Total Protein 5.0 L (6.3-8.3) g/dL Albumin 2.4 L (3.5-5.0) g/dL Globulin 2.6 (2.2-3.9) gm/dL Albumin/Globulin Ratio 1.0 (1.0-2.1) Arterial Blood Potassium (3.6-5.2) mmol/L Random Vancomycin ug/mL Ur L.pneumophila Ag (NEGATIVE) 05/21/18 05/21/18 05/20/18 Range/Units 05:37 05:23 23:31 WBC (4.8-10.8) K/uL RBC (3.80-5.20) Mil/uL Hgb (11.0-16.0) g/dL Hct (34.0-47.0) % MCV (81.0-99.0) fL MCH (27.0-31.0) pg MCHC (33.0-37.0) g/dL RDW (11.5-14.5) % Plt Count (130-400) K/uL MPV (7.2-11.7) fL Neut % (Auto) (50.0-75.0) % Lymph % (Auto) (20.0-40.0) % [place] % (Auto) (0.0-10.0) % Eos % (Auto) (0.0-4.0) % Baso % (Auto) (0.0-2.0) % Neut # (Auto) (1.8-7.0) K/uL Lymph # (Auto) (1.0-4.3) K/uL [place] # (Auto) (0.0-0.8) K/uL Eos # (Auto) (0.0-0.7) K/uL Baso # (Auto) (0.0-0.2) K/uL Neutrophils % (Manual) (50-75) % Band Neutrophils % (0-2) % Lymphocytes % (Manual) (20-40) % Monocytes % (Manual) (0-10) % Platelet Estimate (NORMAL) Polychromasia Hypochromasia (manual) Anisocytosis (manual) Macrocytosis (manual) Fibrinogen (200-400) mg/dL Puncture Site Lr pCO2 45 (35-45) mm/Hg pO2 123 H (80-100) mm/Hg HCO3 26.3 (21-28) mmol/L ABG pH 7.39 (7.35-7.45) ABG Total CO2 28.6 H (22-28) mmol/L ABG O2 Saturation 97.1 (95-98) % ABG Base Excess 1.7 (-2.0-3.0) mmol/L Nicolás Test Pos ABG Potassium 3.4 L (3.6-5.2) mmol/L A-a O2 Difference 142.0 mm/Hg Respiratory Index 1.2 Sodium 139.0 (132-148) mmol/l Chloride 106.0 (98-107) mmol/L Glucose 104 (65-105) mg/dl Lactate 1.0 (0.7-2.1) mmol/L Vent Mode Prvc Mechanical Rate 18 FiO2 45.0 % Tidal Volume 400 PEEP 5 Potassium (3.6-5.2) mmol/L Carbon Dioxide (22-30) mmol/L Anion Gap (10-20) BUN (7-17) mg/dL Creatinine (0.7-1.2) mg/dL Est GFR ( Amer) Est GFR (Non-Af Amer) POC Glucose (mg/dL) 113 H 129 H (65-110) mg/dL Random Glucose (65-105) mg/dL Calcium (8.6-10.4) mg/dl Total Bilirubin (0.2-1.3) mg/dL AST (14-36) U/L ALT (9-52) U/L Alkaline Phosphatase (38-126) U/L Total Protein (6.3-8.3) g/dL Albumin (3.5-5.0) g/dL Globulin (2.2-3.9) gm/dL Albumin/Globulin Ratio (1.0-2.1) Arterial Blood Potassium 3.4 L (3.6-5.2) mmol/L Random Vancomycin ug/mL Ur L.pneumophila Ag (NEGATIVE) 05/20/18 05/20/18 05/20/18 Range/Units 21:00 17:48 16:22 WBC (4.8-10.8) K/uL RBC (3.80-5.20) Mil/uL Hgb (11.0-16.0) g/dL Hct (34.0-47.0) % MCV (81.0-99.0) fL MCH (27.0-31.0) pg MCHC (33.0-37.0) g/dL RDW (11.5-14.5) % Plt Count (130-400) K/uL MPV (7.2-11.7) fL Neut % (Auto) (50.0-75.0) % Lymph % (Auto) (20.0-40.0) % [place] % (Auto) (0.0-10.0) % Eos % (Auto) (0.0-4.0) % Baso % (Auto) (0.0-2.0) % Neut # (Auto) (1.8-7.0) K/uL Lymph # (Auto) (1.0-4.3) K/uL [place] # (Auto) (0.0-0.8) K/uL Eos # (Auto) (0.0-0.7) K/uL Baso # (Auto) (0.0-0.2) K/uL Neutrophils % (Manual) (50-75) % Band Neutrophils % (0-2) % Lymphocytes % (Manual) (20-40) % Monocytes % (Manual) (0-10) % Platelet Estimate (NORMAL) Polychromasia Hypochromasia (manual) Anisocytosis (manual) Macrocytosis (manual) Fibrinogen (200-400) mg/dL Puncture Site Lra pCO2 46 H (35-45) mm/Hg pO2 119 H (80-100) mm/Hg HCO3 26.7 (21-28) mmol/L ABG pH 7.39 (7.35-7.45) ABG Total CO2 29.2 H (22-28) mmol/L ABG O2 Saturation 96.7 (95-98) % ABG Base Excess 2.2 (-2.0-3.0) mmol/L Nicolás Test Pos ABG Potassium 3.1 L (3.6-5.2) mmol/L A-a O2 Difference 144.0 mm/Hg Respiratory Index 1.2 Sodium 141.0 (132-148) mmol/l Chloride 107.0 (98-107) mmol/L Glucose 119 H (65-105) mg/dl Lactate 1.0 (0.7-2.1) mmol/L Vent Mode Prvc Mechanical Rate 18 FiO2 45.0 % Tidal Volume 400 PEEP 5 Potassium (3.6-5.2) mmol/L Carbon Dioxide (22-30) mmol/L Anion Gap (10-20) BUN (7-17) mg/dL Creatinine (0.7-1.2) mg/dL Est GFR ( Amer) Est GFR (Non-Af Amer) POC Glucose (mg/dL) 143 H (65-110) mg/dL Random Glucose (65-105) mg/dL Calcium (8.6-10.4) mg/dl Total Bilirubin (0.2-1.3) mg/dL AST (14-36) U/L ALT (9-52) U/L Alkaline Phosphatase (38-126) U/L Total Protein (6.3-8.3) g/dL Albumin (3.5-5.0) g/dL Globulin (2.2-3.9) gm/dL Albumin/Globulin Ratio (1.0-2.1) Arterial Blood Potassium 3.1 L (3.6-5.2) mmol/L Random Vancomycin 20.1 ug/mL Ur L.pneumophila Ag (NEGATIVE) 05/20/18 05/19/18 Range/Units 11:21 05:47 WBC (4.8-10.8) K/uL RBC (3.80-5.20) Mil/uL Hgb (11.0-16.0) g/dL Hct (34.0-47.0) % MCV (81.0-99.0) fL MCH (27.0-31.0) pg MCHC (33.0-37.0) g/dL RDW (11.5-14.5) % Plt Count (130-400) K/uL MPV (7.2-11.7) fL Neut % (Auto) (50.0-75.0) % Lymph % (Auto) (20.0-40.0) % [place] % (Auto) (0.0-10.0) % Eos % (Auto) (0.0-4.0) % Baso % (Auto) (0.0-2.0) % Neut # (Auto) (1.8-7.0) K/uL Lymph # (Auto) (1.0-4.3) K/uL [place] # (Auto) (0.0-0.8) K/uL Eos # (Auto) (0.0-0.7) K/uL Baso # (Auto) (0.0-0.2) K/uL Neutrophils % (Manual) (50-75) % Band Neutrophils % (0-2) % Lymphocytes % (Manual) (20-40) % Monocytes % (Manual) (0-10) % Platelet Estimate (NORMAL) Polychromasia Hypochromasia (manual) Anisocytosis (manual) Macrocytosis (manual) Fibrinogen (200-400) mg/dL Puncture Site pCO2 (35-45) mm/Hg pO2 (80-100) mm/Hg HCO3 (21-28) mmol/L ABG pH (7.35-7.45) ABG Total CO2 (22-28) mmol/L ABG O2 Saturation (95-98) % ABG Base Excess (-2.0-3.0) mmol/L Nicolás Test ABG Potassium (3.6-5.2) mmol/L A-a O2 Difference mm/Hg Respiratory Index Sodium (132-148) mmol/l Chloride (98-107) mmol/L Glucose (65-105) mg/dl Lactate (0.7-2.1) mmol/L Vent Mode Mechanical Rate FiO2 % Tidal Volume PEEP Potassium (3.6-5.2) mmol/L Carbon Dioxide (22-30) mmol/L Anion Gap (10-20) BUN (7-17) mg/dL Creatinine (0.7-1.2) mg/dL Est GFR ( Amer) Est GFR (Non-Af Amer) POC Glucose (mg/dL) 149 H (65-110) mg/dL Random Glucose (65-105) mg/dL Calcium (8.6-10.4) mg/dl Total Bilirubin (0.2-1.3) mg/dL AST (14-36) U/L ALT (9-52) U/L Alkaline Phosphatase (38-126) U/L Total Protein (6.3-8.3) g/dL Albumin (3.5-5.0) g/dL Globulin (2.2-3.9) gm/dL Albumin/Globulin Ratio (1.0-2.1) Arterial Blood Potassium (3.6-5.2) mmol/L Random Vancomycin ug/mL Ur L.pneumophila Ag Negative (NEGATIVE) Laboratory Results - last 24 hr 05/19/18 05/20/18 05/20/18 05:47 11:21 16:22 WBC RBC Hgb Hct MCV MCH MCHC RDW Plt Count MPV Neut % (Auto) Lymph % (Auto) [place] % (Auto) Eos % (Auto) Baso % (Auto) Neut # (Auto) Lymph # (Auto) [place] # (Auto) Eos # (Auto) Baso # (Auto) Neutrophils % (Manual) Band Neutrophils % Lymphocytes % (Manual) Monocytes % (Manual) Platelet Estimate Polychromasia Hypochromasia (manual) Anisocytosis (manual) Macrocytosis (manual) Fibrinogen Puncture Site pCO2 pO2 HCO3 ABG pH ABG Total CO2 ABG O2 Saturation ABG Base Excess Nicolás Test ABG Potassium A-a O2 Difference Respiratory Index Sodium Chloride Glucose Lactate Vent Mode Mechanical Rate FiO2 Tidal Volume PEEP Potassium Carbon Dioxide Anion Gap BUN Creatinine Est GFR ( Amer) Est GFR (Non-Af Amer) POC Glucose (mg/dL) 149 H Random Glucose Calcium Total Bilirubin AST ALT Alkaline Phosphatase Total Protein Albumin Globulin Albumin/Globulin Ratio Arterial Blood Potassium Random Vancomycin 20.1 Ur L.pneumophila Ag Negative 05/20/18 05/20/18 05/20/18 17:48 21:00 23:31 WBC RBC Hgb Hct MCV MCH MCHC RDW Plt Count MPV Neut % (Auto) Lymph % (Auto) [place] % (Auto) Eos % (Auto) Baso % (Auto) Neut # (Auto) Lymph # (Auto) [place] # (Auto) Eos # (Auto) Baso # (Auto) Neutrophils % (Manual) Band Neutrophils % Lymphocytes % (Manual) Monocytes % (Manual) Platelet Estimate Polychromasia Hypochromasia (manual) Anisocytosis (manual) Macrocytosis (manual) Fibrinogen Puncture Site Lra pCO2 46 H pO2 119 H HCO3 26.7 ABG pH 7.39 ABG Total CO2 29.2 H ABG O2 Saturation 96.7 ABG Base Excess 2.2 Nicolás Test Pos ABG Potassium 3.1 L A-a O2 Difference 144.0 Respiratory Index 1.2 Sodium 141.0 Chloride 107.0 Glucose 119 H Lactate 1.0 Vent Mode Prvc Mechanical Rate 18 FiO2 45.0 Tidal Volume 400 PEEP 5 Potassium Carbon Dioxide Anion Gap BUN Creatinine Est GFR ( Amer) Est GFR (Non-Af Amer) POC Glucose (mg/dL) 143 H 129 H Random Glucose Calcium Total Bilirubin AST ALT Alkaline Phosphatase Total Protein Albumin Globulin Albumin/Globulin Ratio Arterial Blood Potassium 3.1 L Random Vancomycin Ur L.pneumophila Ag 05/21/18 05/21/18 05/21/18 05:23 05:37 06:22 WBC 23.6 H RBC 2.46 L Hgb 8.2 L Hct 25.2 L MCV 102.1 H MCH 33.1 H MCHC 32.4 L RDW 16.6 H Plt Count 56 L MPV 11.2 Neut % (Auto) 91.1 H Lymph % (Auto) 2.6 L [place] % (Auto) 4.3 Eos % (Auto) 1.8 Baso % (Auto) 0.2 Neut # (Auto) 21.5 H Lymph # (Auto) 0.6 L [place] # (Auto) 1.0 H Eos # (Auto) 0.4 Baso # (Auto) 0.0 Neutrophils % (Manual) 89 H Band Neutrophils % 3 H Lymphocytes % (Manual) 2 L Monocytes % (Manual) 6 Platelet Estimate Decreased L Polychromasia Slight Hypochromasia (manual) Slight Anisocytosis (manual) Slight Macrocytosis (manual) Slight Fibrinogen Puncture Site Lr pCO2 45 pO2 123 H HCO3 26.3 ABG pH 7.39 ABG Total CO2 28.6 H ABG O2 Saturation 97.1 ABG Base Excess 1.7 Nicolás Test Pos ABG Potassium 3.4 L A-a O2 Difference 142.0 Respiratory Index 1.2 Sodium 139.0 Chloride 106.0 Glucose 104 Lactate 1.0 Vent Mode Prvc Mechanical Rate 18 FiO2 45.0 Tidal Volume 400 PEEP 5 Potassium Carbon Dioxide Anion Gap BUN Creatinine Est GFR ( Amer) Est GFR (Non-Af Amer) POC Glucose (mg/dL) 113 H Random Glucose Calcium Total Bilirubin AST ALT Alkaline Phosphatase Total Protein Albumin Globulin Albumin/Globulin Ratio Arterial Blood Potassium 3.4 L Random Vancomycin Ur L.pneumophila Ag 05/21/18 05/21/18 06:22 06:22 WBC RBC Hgb Hct MCV MCH MCHC RDW Plt Count MPV Neut % (Auto) Lymph % (Auto) [place] % (Auto) Eos % (Auto) Baso % (Auto) Neut # (Auto) Lymph # (Auto) [place] # (Auto) Eos # (Auto) Baso # (Auto) Neutrophils % (Manual) Band Neutrophils % Lymphocytes % (Manual) Monocytes % (Manual) Platelet Estimate Polychromasia Hypochromasia (manual) Anisocytosis (manual) Macrocytosis (manual) Fibrinogen 418 H Puncture Site pCO2 pO2 HCO3 ABG pH ABG Total CO2 ABG O2 Saturation ABG Base Excess Nicolás Test ABG Potassium A-a O2 Difference Respiratory Index Sodium 139 Chloride 103 Glucose Lactate Vent Mode Mechanical Rate FiO2 Tidal Volume PEEP Potassium 3.7 Carbon Dioxide 29 Anion Gap 11 BUN 40 H Creatinine 2.4 H Est GFR ( Amer) 24 Est GFR (Non-Af Amer) 20 POC Glucose (mg/dL) Random Glucose 107 H Calcium 7.9 L Total Bilirubin 1.0 AST 27 ALT 34 Alkaline Phosphatase 157 H Total Protein 5.0 L Albumin 2.4 L Globulin 2.6 Albumin/Globulin Ratio 1.0 Arterial Blood Potassium Random Vancomycin Ur L.pneumophila Ag Radiology Impressions: Radiology Impressions Chest X-Ray 05/20/18 06:00 IMPRESSION: Mid to inferior pulmonary airspace disease at the left chest with borderline CHF present. Stable cardiomegaly. Chest X-Ray 05/21/18 07:19 IMPRESSION: Stable nonacute chest radiograph with tube and catheter unchanged. Interval nasogastric tube deployment as discussed above, tip off the image. Stable cardiomegaly. Fingerstick Blood Sugar Results: 143 Review of Systems - Review of Systems Systems not reviewed;Unavailable: Intubated Assessment/Plan - Assessment and Plan (Free Text) Assessment: 72 y o female with PMhx CHF, CAD, HTN, HLD, hx thyroid disease and renal disease, who presented to the ED with c/o LLE swelling and pain x 1 day induration, was also having fever. Code Sepsis called in ED. Pt was admitted to medical floor. Pt had repeated episodes of tachycardia and hypotension, leading to [employer] on 05/15 in which pt became more lethargic-appearing on exam after vomiting episode, s/p intubation by anesthesia, pt was transferred to ICU for further monitoring. Acute respiratory failure likely 2/2 aspiration of bilious vomit. Intubated on vent, was extubated yesterday after tolerating CPAP trials well, however pt desaturated and became bradycardic approx 30 mins after, and thus was reintubated last evening. Was placed on Levophed drip for septic shock with Group C strep bacteremia from LLE cellulitis and urine cx pos for E. coli, tapered down, switched to Dobutamine this am. Presented with oliguria, acute tubular necrosis, started on HD 05/17/18, currently on HD MWF as per Nephro recs. LLE imaging negative for subcutaneous emphysema, Podiatry consulted. Plan: Neuro: -Currently intubated -No gross deficits on exam, cont to monitor Cardio: -Hx CABG, HTN, CHF, HLD -Dr. Ramires consulted, recs appreciated -Echo 05/15: LV function severely reduced, diffuse hypokinesis. EF 20%. Septum dyskinetic and demonstrates flattening, elevated RV pressure. R ventricle, L and R atria dilated. Severe pulmonary HTN. -Switched to dobutamine drip this am -Bradycardic and hypotensive this am, cont to monitor Pulm: -Intubated on PRVC -Weaning protocol and CPAP trials as tolerated -Maintain O2 sat > 92% -Bronchodilators -Acute respiratory failure likely 2/2 aspiration of bilious vomit -Vanco/Azactam/Clindamycin -Vanco trough elevated, Vanco dose to be held this am, repeat vanco level ordered -Leukocytosis trending down -Blood cxs growing Group C strep, urine cx growing E.coli GI: -NPO -Glucerna tube feeds -Protonix Heme: -Dr. Duggan consulted for pancytopenia, recs appreciated -Procrit MWF -H/H stable, cont to trend, transfuse prn -Thrombocytopenia stable, cont to trend Renal: -Oliguria, ATN -Dr. Pereira consulted, recs appreciated -HD MWF -[place] d/c'd ID: -Tx possible aspiration PNA and UTI as noted above -ID consulted, Dr. Guevara, recs appreciated -Podiatry consulted, Dr. Zhu, for L lower leg cellulitis/blister formation, recs appreciated No acute surgical intervention indicated at this time -L Ankle XR: No evid of acute displaced fracture or doslocation. No obvious cortical destructive changes. Diffuse soft tissue swelling and infiltration c/w cellulitis however no evidence of subcutaneous emphysema is identified. -L Foot XR: No gas forming cellulitis. Soft tissue diffuse swelling - compatible with lymphedema and/or cellulitis. No periosteal reaction to suggest osteomyelitis noted. No gross osseous destruction appreciated. Generalized osteopenia and mild diffuse degenerative changes as above. -L tib/fib XR: No evidence of acute displaced fracture nor dislocation. No cortical destruction however does appear to be mild cortical thickening changes inviling the mid lateral fibula that could be reactive although early osteomyelitis not completely excluded. Consider f/u bone scan or MRI. Endo: -Hx DM2 -Fingersticks q6h -ISS -Hypoglycemic protocol PPX: -Protonix, Heparin on hold 2/2 low Hgb Pt seen, examined with, and plan discussed with Dr. Charissa Fragoso, attending physician. 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 <Cristian Fragoso - Last Filed: 05/21/18 13:53> CCU Subjective - Physician Review Critical Care Time Spent (in minutes): 37 CCU Objective - Vital Signs / Intake & Output Vital Signs (Last 4 hours): Vital Signs Temp 05/21/18 11:33 98.2 F Intake and Output (Last 8hrs): Intake & Output 05/20/18 05/21/18 05/21/18 22:59 06:59 14:59 Intake Total 619.1 167.2 298.9 Balance 619.1 167.2 298.9 Weight 159 lb 9.835 oz Intake: IV 50 77 21 Intake, IV Amount 399.1 90.2 117.9 Left Forearm 72.5 71.2 6.8 Right Antecubital 300 100 Right Internal Jugular 26.6 19.0 11.1 Trialysis Catheter Tube Feeding 120 160 Other 50 Other: # Bowel Movements 1 - Medications Active Medications: Active Medications Generic Name Dose Route Start Last Admin Trade Name Freq PRN Reason Stop Dose Admin Acetaminophen 650 mg 05/18/18 00:30 05/20/18 08:13 Tylenol 650mg/20.3ml Solution Ud PO 650 mg Q6 PRN Administration Fever >100.4 F or Pain Albuterol/Ipratropium 3 ml 05/21/18 14:00 05/21/18 13:11 Duoneb 3 Mg/0.5 Mg (3 Ml) Ud INH 3 ml RQ6 [facility] Administration Dextrose 0 ml 05/16/18 18:32 05/18/18 18:17 Dextrose 50% Inj IV 50 ml STAT PRN Administration Hypoglycemia Protocol Protocol Dextrose 0 gm 05/16/18 18:32 Glutose 15 PO ONCE PRN Hypoglycemia Protocol Protocol Epoetin Anthony 10,000 unit 05/20/18 15:30 05/20/18 15:23 Procrit IV 10,000 unit MWF [facility] Administration Ergocalciferol 1 cap 05/18/18 10:45 05/18/18 13:24 Drisdol 50,000 Intl Units Cap PO 1 cap Q7D [facility] Administration Ferrous Gluconate 324 mg 05/18/18 14:00 05/21/18 09:11 Fergon PO 324 mg TID [facility] Administration Glucagon 0 mg 05/16/18 18:32 Glucagen Diagnostic Kit IM STAT PRN Hypoglycemia Protocol Protocol Heparin Sodium (Porcine) 5,000 units 05/16/18 17:45 05/19/18 05:17 Heparin SC 5,000 units Q12H [facility] Administration Dextrose 1,000 mls @ 0 mls/hr 05/16/18 18:32 Dextrose 5% In Water 1000 Ml IV .Q0M PRN Hypoglycemia Protocol Protocol Per Protocol Aztreonam 1 gm/ Sodium 100 mls @ 100 mls/hr 05/17/18 20:00 05/21/18 08:00 Chloride IVPB 100 mls/hr Q12H [facility] Administration Protocol Clindamycin Phosphate 600 mg/ 54 mls @ 100 mls/hr 05/17/18 22:00 05/21/18 05:40 Sodium Chloride IVPB 100 mls/hr Q8H [facility] Administration Protocol Vancomycin/Sodium Chloride 1 gm in 200 mls @ 133.333 mls/hr 05/20/18 09:00 05/20/18 09:30 Vancomycin 1 Gm/Ns 200 Ml IVPB 05/25/18 09:01 Not Given MWF [facility] Protocol Micafungin Sodium 100 mg/ 100 mls @ 100 mls/hr 05/20/18 18:00 05/20/18 17:35 Sodium Chloride IV 100 mls/hr Q24H [facility] Administration Protocol Dobutamine HCl/Dextrose 500 mg in 250 mls @ 5.43 mls/hr 05/21/18 09:00 05/21/18 09:12 Dobutamine/Dextrose 5% 500mg/250ml IV 2.5 mcg/kg/min .Q24H [facility] 5.43 mls/hr Administration Protocol 2.5 MCG/KG/MIN Insulin Aspart 0 unit 05/18/18 00:00 05/21/18 11:33 Novolog SC Not Given Q6 [facility] Protocol Methylprednisolone 40 mg 05/21/18 15:00 Solu-Medrol IVP Q8H [facility] Montelukast Sodium 10 mg 05/21/18 22:00 Singulair PO HS [facility] Pantoprazole Sodium 40 mg 05/17/18 10:00 05/21/18 09:12 Protonix Inj IVP 40 mg DAILY [facility] Administration Vitamin B Complex/Vit C/Folic Acid 1 tab 05/19/18 08:00 05/21/18 09:00 Nephro-Pancho PO 1 tab 0800 [facility] Administration - Patient Studies Lab Studies: Microbiology Studies 05/19/18 11:56 Gram Stain - Final Sputum Sputum Culture - Final Escherichia Coli 05/19/18 15:55 Blood Culture - Preliminary Blood NO GROWTH AFTER 24 HOURS 05/19/18 16:05 Blood Culture - Preliminary Blood NO GROWTH AFTER 24 HOURS 05/20/18 09:04 Gram Stain - Final Leg - Left Lab Studies 05/21/18 05/21/18 05/21/18 Range/Units 06:22 06:22 06:22 WBC 23.6 H (4.8-10.8) K/uL RBC 2.46 L (3.80-5.20) Mil/uL Hgb 8.2 L (11.0-16.0) g/dL Hct 25.2 L (34.0-47.0) % MCV 102.1 H (81.0-99.0) fL MCH 33.1 H (27.0-31.0) pg MCHC 32.4 L (33.0-37.0) g/dL RDW 16.6 H (11.5-14.5) % Plt Count 56 L (130-400) K/uL MPV 11.2 (7.2-11.7) fL Neut % (Auto) 91.1 H (50.0-75.0) % Lymph % (Auto) 2.6 L (20.0-40.0) % [place] % (Auto) 4.3 (0.0-10.0) % Eos % (Auto) 1.8 (0.0-4.0) % Baso % (Auto) 0.2 (0.0-2.0) % Neut # (Auto) 21.5 H (1.8-7.0) K/uL Lymph # (Auto) 0.6 L (1.0-4.3) K/uL [place] # (Auto) 1.0 H (0.0-0.8) K/uL Eos # (Auto) 0.4 (0.0-0.7) K/uL Baso # (Auto) 0.0 (0.0-0.2) K/uL Neutrophils % (Manual) 89 H (50-75) % Band Neutrophils % 3 H (0-2) % Lymphocytes % (Manual) 2 L (20-40) % Monocytes % (Manual) 6 (0-10) % Platelet Estimate Decreased L (NORMAL) Polychromasia Slight Hypochromasia (manual) Slight Anisocytosis (manual) Slight Macrocytosis (manual) Slight Fibrinogen 418 H (200-400) mg/dL Puncture Site pCO2 (35-45) mm/Hg pO2 (80-100) mm/Hg HCO3 (21-28) mmol/L ABG pH (7.35-7.45) ABG Total CO2 (22-28) mmol/L ABG O2 Saturation (95-98) % ABG Base Excess (-2.0-3.0) mmol/L Nicolás Test ABG Potassium (3.6-5.2) mmol/L A-a O2 Difference mm/Hg Respiratory Index Sodium 139 (132-148) mmol/l Chloride 103 (98-107) mmol/L Glucose (65-105) mg/dl Lactate (0.7-2.1) mmol/L Vent Mode Mechanical Rate FiO2 % Tidal Volume PEEP Potassium 3.7 (3.6-5.2) mmol/L Carbon Dioxide 29 (22-30) mmol/L Anion Gap 11 (10-20) BUN 40 H (7-17) mg/dL Creatinine 2.4 H (0.7-1.2) mg/dL Est GFR ( Amer) 24 Est GFR (Non-Af Amer) 20 POC Glucose (mg/dL) (65-110) mg/dL Random Glucose 107 H (65-105) mg/dL Calcium 7.9 L (8.6-10.4) mg/dl Total Bilirubin 1.0 (0.2-1.3) mg/dL AST 27 (14-36) U/L ALT 34 (9-52) U/L Alkaline Phosphatase 157 H (38-126) U/L Total Protein 5.0 L (6.3-8.3) g/dL Albumin 2.4 L (3.5-5.0) g/dL Globulin 2.6 (2.2-3.9) gm/dL Albumin/Globulin Ratio 1.0 (1.0-2.1) Arterial Blood Potassium (3.6-5.2) mmol/L Random Vancomycin ug/mL 05/21/18 05/21/18 05/20/18 Range/Units 05:37 05:23 23:31 WBC (4.8-10.8) K/uL RBC (3.80-5.20) Mil/uL Hgb (11.0-16.0) g/dL Hct (34.0-47.0) % MCV (81.0-99.0) fL MCH (27.0-31.0) pg MCHC (33.0-37.0) g/dL RDW (11.5-14.5) % Plt Count (130-400) K/uL MPV (7.2-11.7) fL Neut % (Auto) (50.0-75.0) % Lymph % (Auto) (20.0-40.0) % [place] % (Auto) (0.0-10.0) % Eos % (Auto) (0.0-4.0) % Baso % (Auto) (0.0-2.0) % Neut # (Auto) (1.8-7.0) K/uL Lymph # (Auto) (1.0-4.3) K/uL [place] # (Auto) (0.0-0.8) K/uL Eos # (Auto) (0.0-0.7) K/uL Baso # (Auto) (0.0-0.2) K/uL Neutrophils % (Manual) (50-75) % Band Neutrophils % (0-2) % Lymphocytes % (Manual) (20-40) % Monocytes % (Manual) (0-10) % Platelet Estimate (NORMAL) Polychromasia Hypochromasia (manual) Anisocytosis (manual) Macrocytosis (manual) Fibrinogen (200-400) mg/dL Puncture Site Lr pCO2 45 (35-45) mm/Hg pO2 123 H (80-100) mm/Hg HCO3 26.3 (21-28) mmol/L ABG pH 7.39 (7.35-7.45) ABG Total CO2 28.6 H (22-28) mmol/L ABG O2 Saturation 97.1 (95-98) % ABG Base Excess 1.7 (-2.0-3.0) mmol/L Nicolás Test Pos ABG Potassium 3.4 L (3.6-5.2) mmol/L A-a O2 Difference 142.0 mm/Hg Respiratory Index 1.2 Sodium 139.0 (132-148) mmol/l Chloride 106.0 (98-107) mmol/L Glucose 104 (65-105) mg/dl Lactate 1.0 (0.7-2.1) mmol/L Vent Mode Prvc Mechanical Rate 18 FiO2 45.0 % Tidal Volume 400 PEEP 5 Potassium (3.6-5.2) mmol/L Carbon Dioxide (22-30) mmol/L Anion Gap (10-20) BUN (7-17) mg/dL Creatinine (0.7-1.2) mg/dL Est GFR ( Amer) Est GFR (Non-Af Amer) POC Glucose (mg/dL) 113 H 129 H (65-110) mg/dL Random Glucose (65-105) mg/dL Calcium (8.6-10.4) mg/dl Total Bilirubin (0.2-1.3) mg/dL AST (14-36) U/L ALT (9-52) U/L Alkaline Phosphatase (38-126) U/L Total Protein (6.3-8.3) g/dL Albumin (3.5-5.0) g/dL Globulin (2.2-3.9) gm/dL Albumin/Globulin Ratio (1.0-2.1) Arterial Blood Potassium 3.4 L (3.6-5.2) mmol/L Random Vancomycin ug/mL 05/20/18 05/20/18 05/20/18 Range/Units 21:00 17:48 16:22 WBC (4.8-10.8) K/uL RBC (3.80-5.20) Mil/uL Hgb (11.0-16.0) g/dL Hct (34.0-47.0) % MCV (81.0-99.0) fL MCH (27.0-31.0) pg MCHC (33.0-37.0) g/dL RDW (11.5-14.5) % Plt Count (130-400) K/uL MPV (7.2-11.7) fL Neut % (Auto) (50.0-75.0) % Lymph % (Auto) (20.0-40.0) % [place] % (Auto) (0.0-10.0) % Eos % (Auto) (0.0-4.0) % Baso % (Auto) (0.0-2.0) % Neut # (Auto) (1.8-7.0) K/uL Lymph # (Auto) (1.0-4.3) K/uL [place] # (Auto) (0.0-0.8) K/uL Eos # (Auto) (0.0-0.7) K/uL Baso # (Auto) (0.0-0.2) K/uL Neutrophils % (Manual) (50-75) % Band Neutrophils % (0-2) % Lymphocytes % (Manual) (20-40) % Monocytes % (Manual) (0-10) % Platelet Estimate (NORMAL) Polychromasia Hypochromasia (manual) Anisocytosis (manual) Macrocytosis (manual) Fibrinogen (200-400) mg/dL Puncture Site Lra pCO2 46 H (35-45) mm/Hg pO2 119 H (80-100) mm/Hg HCO3 26.7 (21-28) mmol/L ABG pH 7.39 (7.35-7.45) ABG Total CO2 29.2 H (22-28) mmol/L ABG O2 Saturation 96.7 (95-98) % ABG Base Excess 2.2 (-2.0-3.0) mmol/L Nicolás Test Pos ABG Potassium 3.1 L (3.6-5.2) mmol/L A-a O2 Difference 144.0 mm/Hg Respiratory Index 1.2 Sodium 141.0 (132-148) mmol/l Chloride 107.0 (98-107) mmol/L Glucose 119 H (65-105) mg/dl Lactate 1.0 (0.7-2.1) mmol/L Vent Mode Prvc Mechanical Rate 18 FiO2 45.0 % Tidal Volume 400 PEEP 5 Potassium (3.6-5.2) mmol/L Carbon Dioxide (22-30) mmol/L Anion Gap (10-20) BUN (7-17) mg/dL Creatinine (0.7-1.2) mg/dL Est GFR ( Amer) Est GFR (Non-Af Amer) POC Glucose (mg/dL) 143 H (65-110) mg/dL Random Glucose (65-105) mg/dL Calcium (8.6-10.4) mg/dl Total Bilirubin (0.2-1.3) mg/dL AST (14-36) U/L ALT (9-52) U/L Alkaline Phosphatase (38-126) U/L Total Protein (6.3-8.3) g/dL Albumin (3.5-5.0) g/dL Globulin (2.2-3.9) gm/dL Albumin/Globulin Ratio (1.0-2.1) Arterial Blood Potassium 3.1 L (3.6-5.2) mmol/L Random Vancomycin 20.1 ug/mL Laboratory Results - last 24 hr 05/20/18 05/20/18 05/20/18 16:22 17:48 21:00 WBC RBC Hgb Hct MCV MCH MCHC RDW Plt Count MPV Neut % (Auto) Lymph % (Auto) [place] % (Auto) Eos % (Auto) Baso % (Auto) Neut # (Auto) Lymph # (Auto) [place] # (Auto) Eos # (Auto) Baso # (Auto) Neutrophils % (Manual) Band Neutrophils % Lymphocytes % (Manual) Monocytes % (Manual) Platelet Estimate Polychromasia Hypochromasia (manual) Anisocytosis (manual) Macrocytosis (manual) Fibrinogen Puncture Site Lra pCO2 46 H pO2 119 H HCO3 26.7 ABG pH 7.39 ABG Total CO2 29.2 H ABG O2 Saturation 96.7 ABG Base Excess 2.2 Nicolás Test Pos ABG Potassium 3.1 L A-a O2 Difference 144.0 Respiratory Index 1.2 Sodium 141.0 Chloride 107.0 Glucose 119 H Lactate 1.0 Vent Mode Prvc Mechanical Rate 18 FiO2 45.0 Tidal Volume 400 PEEP 5 Potassium Carbon Dioxide Anion Gap BUN Creatinine Est GFR ( Amer) Est GFR (Non-Af Amer) POC Glucose (mg/dL) 143 H Random Glucose Calcium Total Bilirubin AST ALT Alkaline Phosphatase Total Protein Albumin Globulin Albumin/Globulin Ratio Arterial Blood Potassium 3.1 L Random Vancomycin 20.1 05/20/18 05/21/18 05/21/18 23:31 05:23 05:37 WBC RBC Hgb Hct MCV MCH MCHC RDW Plt Count MPV Neut % (Auto) Lymph % (Auto) [place] % (Auto) Eos % (Auto) Baso % (Auto) Neut # (Auto) Lymph # (Auto) [place] # (Auto) Eos # (Auto) Baso # (Auto) Neutrophils % (Manual) Band Neutrophils % Lymphocytes % (Manual) Monocytes % (Manual) Platelet Estimate Polychromasia Hypochromasia (manual) Anisocytosis (manual) Macrocytosis (manual) Fibrinogen Puncture Site Lr pCO2 45 pO2 123 H HCO3 26.3 ABG pH 7.39 ABG Total CO2 28.6 H ABG O2 Saturation 97.1 ABG Base Excess 1.7 Nicolás Test Pos ABG Potassium 3.4 L A-a O2 Difference 142.0 Respiratory Index 1.2 Sodium 139.0 Chloride 106.0 Glucose 104 Lactate 1.0 Vent Mode Prvc Mechanical Rate 18 FiO2 45.0 Tidal Volume 400 PEEP 5 Potassium Carbon Dioxide Anion Gap BUN Creatinine Est GFR ( Amer) Est GFR (Non-Af Amer) POC Glucose (mg/dL) 129 H 113 H Random Glucose Calcium Total Bilirubin AST ALT Alkaline Phosphatase Total Protein Albumin Globulin Albumin/Globulin Ratio Arterial Blood Potassium 3.4 L Random Vancomycin 05/21/18 05/21/18 05/21/18 06:22 06:22 06:22 WBC 23.6 H RBC 2.46 L Hgb 8.2 L Hct 25.2 L MCV 102.1 H MCH 33.1 H MCHC 32.4 L RDW 16.6 H Plt Count 56 L MPV 11.2 Neut % (Auto) 91.1 H Lymph % (Auto) 2.6 L [place] % (Auto) 4.3 Eos % (Auto) 1.8 Baso % (Auto) 0.2 Neut # (Auto) 21.5 H Lymph # (Auto) 0.6 L [place] # (Auto) 1.0 H Eos # (Auto) 0.4 Baso # (Auto) 0.0 Neutrophils % (Manual) 89 H Band Neutrophils % 3 H Lymphocytes % (Manual) 2 L Monocytes % (Manual) 6 Platelet Estimate Decreased L Polychromasia Slight Hypochromasia (manual) Slight Anisocytosis (manual) Slight Macrocytosis (manual) Slight Fibrinogen 418 H Puncture Site pCO2 pO2 HCO3 ABG pH ABG Total CO2 ABG O2 Saturation ABG Base Excess Nicolás Test ABG Potassium A-a O2 Difference Respiratory Index Sodium 139 Chloride 103 Glucose Lactate Vent Mode Mechanical Rate FiO2 Tidal Volume PEEP Potassium 3.7 Carbon Dioxide 29 Anion Gap 11 BUN 40 H Creatinine 2.4 H Est GFR ( Amer) 24 Est GFR (Non-Af Amer) 20 POC Glucose (mg/dL) Random Glucose 107 H Calcium 7.9 L Total Bilirubin 1.0 AST 27 ALT 34 Alkaline Phosphatase 157 H Total Protein 5.0 L Albumin 2.4 L Globulin 2.6 Albumin/Globulin Ratio 1.0 Arterial Blood Potassium Random Vancomycin Radiology Impressions: Radiology Impressions Chest X-Ray 05/20/18 06:00 IMPRESSION: Mid to inferior pulmonary airspace disease at the left chest with borderline CHF present. Stable cardiomegaly. Chest X-Ray 05/20/18 19:01 Impression: Endotracheal tube extending into the midthoracic trachea. Right central venous catheter with tip extending into the right atrium. Moderate venous congestion with diffuse increased interstitial lung markings. Patchy increased markings at the left lung base. Biapical pleural thickening with upper lobe granulomatous changes. Status post median sternotomy. Cardiomegaly. Tortuous ectatic aorta. Atherosclerotic calcification at the aortic knob. Chest X-Ray 05/21/18 07:19 IMPRESSION: Stable nonacute chest radiograph with tube and catheter unchanged. Interval nasogastric tube deployment as discussed above, tip off the image. Stable cardiomegaly. Assessment/Plan - Assessment and Plan (Free Text) Plan: Hypoxic respiratory failure Severe systolic heart failure ATN -optimize heart function with IV dopamine + dobutamine -negative balance -HD in AM -continue CPAP trial -continue NG tube feeds -above residento docuemnts my my clinical management and findings -cc time 37 minutes - Date & Time Date: 05/21/18 Time: 13:53
--- NOTE | 2018-05-21 10:48 | CP.PCM.PN ---
Subjective - Date & Time of Evaluation Date of Evaluation: 05/21/18 Time of Evaluation: 10:44 - Subjective Subjective: Podiatry Progress Note for Dr. Zhu 72F seen and evaluated at bedside for b/l leg swelling with serous bullae. Patient is still intubated at this time but appears more alert today. Per nursing, no acute overnight events. Objective - Vital Signs/Intake and Output Vital Signs (last 24 hours): Temp Pulse Resp BP Pulse Ox 98.4 F 81 13 115/46 L 97 05/21/18 08:00 05/21/18 09:28 05/21/18 09:28 05/21/18 09:28 05/21/18 09:28 Intake and Output: 05/21/18 05/21/18 06:59 18:59 Intake Total 368.0 253.8 Balance 368.0 253.8 - Medications Medications: Current Medications Acetaminophen (Tylenol 650mg/20.3ml Solution Ud) 650 mg PO Q6 PRN PRN Reason: Fever >100.4 F or Pain Last Admin: 05/20/18 08:13 Dose: 650 mg Albuterol/Ipratropium (Duoneb 3 Mg/0.5 Mg (3 Ml) Ud) 3 ml INH RQ6 [facility] Dextrose (Dextrose 50% Inj) 0 ml IV STAT PRN; Protocol PRN Reason: Hypoglycemia Protocol Last Admin: 05/18/18 18:17 Dose: 50 ml Dextrose (Glutose 15) 0 gm PO ONCE PRN; Protocol PRN Reason: Hypoglycemia Protocol Epoetin Anthony (Procrit) 10,000 unit IV MWF [facility] Last Admin: 05/20/18 15:23 Dose: 10,000 unit Ergocalciferol (Drisdol 50,000 Intl Units Cap) 1 cap PO Q7D [facility] Last Admin: 05/18/18 13:24 Dose: 1 cap Ferrous Gluconate (Fergon) 324 mg PO TID [facility] Last Admin: 05/21/18 09:11 Dose: 324 mg Glucagon (Glucagen Diagnostic Kit) 0 mg IM STAT PRN; Protocol PRN Reason: Hypoglycemia Protocol Heparin Sodium (Porcine) (Heparin) 5,000 units SC Q12H [facility] Last Admin: 05/19/18 05:17 Dose: 5,000 units Dextrose (Dextrose 5% In Water 1000 Ml) 1,000 mls @ 0 mls/hr IV .Q0M PRN; Protocol PRN Reason: Hypoglycemia Protocol Aztreonam 1 gm/ Sodium (Chloride) 100 mls @ 100 mls/hr IVPB Q12H [facility]; Protocol Last Admin: 05/21/18 08:00 Dose: 100 mls/hr Clindamycin Phosphate 600 mg/ (Sodium Chloride) 54 mls @ 100 mls/hr IVPB Q8H [facility]; Protocol Last Admin: 05/21/18 05:40 Dose: 100 mls/hr Vancomycin/Sodium Chloride (Vancomycin 1 Gm/Ns 200 Ml) 1 gm in 200 mls @ 133.333 mls/hr IVPB MWF [facility]; Protocol Stop: 05/25/18 09:01 Last Admin: 05/20/18 09:30 Dose: Not Given Micafungin Sodium 100 mg/ (Sodium Chloride) 100 mls @ 100 mls/hr IV Q24H [facility]; Protocol Last Admin: 05/20/18 17:35 Dose: 100 mls/hr Dobutamine HCl/Dextrose (Dobutamine/Dextrose 5% 500mg/250ml) 500 mg in 250 mls @ 5.43 mls/hr IV .Q24H [facility]; Protocol Last Admin: 05/21/18 09:12 Dose: 2.5 mcg/kg/min, 5.43 mls/hr Insulin Aspart (Novolog) 0 unit SC Q6 [facility]; Protocol Last Admin: 05/21/18 05:43 Dose: Not Given Methylprednisolone (Solu-Medrol) 40 mg IVP Q8H [facility] Montelukast Sodium (Singulair) 10 mg PO HS [facility] Pantoprazole Sodium (Protonix Inj) 40 mg IVP DAILY [facility] Last Admin: 05/21/18 09:12 Dose: 40 mg Vitamin B Complex/Vit C/Folic Acid (Nephro-Pancho) 1 tab PO 0800 [facility] Last Admin: 05/21/18 09:00 Dose: 1 tab - Labs Labs: 05/21/18 06:22 05/21/18 06:22 PT 19.8 SECONDS (9.7-12.2) H 05/17/18 06:09 INR 1.8 05/17/18 06:09 APTT 40 SECONDS (21-34) H D 05/17/18 06:09 - Constitutional Appears: No Acute Distress - Extremities Exam Additional comments: LE focused exam: Vasc: DP/PT pulses non-palpable, CFT < 3 seconds to all digits, skin temperature warm to warm from proximal to distal WNL, no erythema present. Diffuse 2+ pitting edema noted to b/l LE improving slowly Neuro: Unable to assess secondary to patient mental state and intubation Derm: Two lysed bullae noted to lateral aspect of leg and one lysed bullae noted to medial aspect of leg. Wound bases are all granular in nature. Tense, serous filled bullae noted to lateral leg proximal to previously lanced bullae. No ernst thema noted at this time. MSK: No gross deformities noted. Unable to assess ROM or MMT at this time - Neurological Exam Neurological Exam: Alert, Awake - Psychiatric Exam Psychiatric exam: Normal Affect, Normal Mood Assessment and Plan - Assessment and Plan (Free Text) Assessment: 72F seen and evaluated at bedside for b/l leg swelling with serous bullae Plan: Patient seen and evaluated Plan discussed with Dr. Zhu WBC 23.6 Continue abx per ID Lateral bullae lysed when touched revealing serous drainage, no purulence appr eciated F/u wound cx Blood cx: Group C Strep Urine cx: E. coli Foot, ankle and tib/fib xrays show no evidence of soft tissue emphysema. Evidence of subcutaneous edema and cellulitis appreciated Bullae sites dressed with DSD, ABD No plan for surgical intervention at this time Podiatry will continue to follow while patient in house
--- NOTE | 2018-05-21 10:50 | RAD ---
Chest x-ray single frontal view HISTORY: Intubation. COMPARISON: 05/20/2018 Findings: Endotracheal tube extending into the midthoracic trachea. Right central venous catheter with tip extending into the right atrium. Moderate venous congestion with diffuse increased interstitial lung markings. Patchy increased markings at the left lung base. Biapical pleural thickening with upper lobe granulomatous changes. Status post median sternotomy. Cardiomegaly. Tortuous ectatic aorta. Atherosclerotic calcification at the aortic knob. Degenerative changes in the spine and shoulders. Impression: Endotracheal tube extending into the midthoracic trachea. Right central venous catheter with tip extending into the right atrium. Moderate venous congestion with diffuse increased interstitial lung markings. Patchy increased markings at the left lung base. Biapical pleural thickening with upper lobe granulomatous changes. Status post median sternotomy. Cardiomegaly. Tortuous ectatic aorta. Atherosclerotic calcification at the aortic knob.
[2018-05-21] MEDS: Albuterol-Ipratrop 3 mg / 0.5 (3 ml) UD INH SCH ×2 (13:11→20:35)
--- NOTE | 2018-05-21 14:36 | CP.PCM.PN ---
Subjective - Date & Time of Evaluation Date of Evaluation: 05/21/18 Time of Evaluation: 14:34 - Subjective Subjective: Nephrology Follow up Note HPI: 72-year-old female with a history of CHF, CAD, hypertension, hyperlipidemia, history of thyroid disease and renal disease, patient admitted to the hospital with a complaining of left lower extremity pain swelling of one day duration along with fever, followed by code sepsis, hypotension leading to resp distress and current intubation. Hx is obtained from charts. currrently intubated on pressors unknown baseline kidney disease, cr is now 3.1 UOP 10-15 cc per hour. on iv fluids and pressors Past medical history: Had a history of congestive heart failure, coronary artery disease, diabetes, hypertension, hypothyroidism, renal insufficiency. Patient has allergic to penicillin Surgical history include coronary artery bypass grafting x2 Social history: No smoking or drinking history noted Family history significant for diabetes and heart disease Medications at this time not available. 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 On ventilator. FiO2 28% PEEP 5 Chest bilateral air entry and clearer Heart sounds are regular Abdomen soft nontender. edema ++ awake but bit agitated Left lower extremity erythema, blisters, and swelling noted Assesment: stable oligoanuric ARRON likely ATN/septic shock with cellulitis and ? 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 no acute need today. maintain hemodynamics stable. Avoid hypotension. Patient not on ACEI/ARB due to recent ARRON Monitor Input/Output, daily weights and renal function with basic metabolic panel c/w Iron, MVI. PRBC as needed. epogen ordered supplement Vit D dose vanco by level. supplement lytes as needed on inotropes Dose meds/antibiotics for reduced GFR. Avoid fleets enema/magnesium based laxatives. Avoid nephrotoxins/NSAIDs/ iodinated contrast (unless needed emergently) Glycemic control Further work up/management as per primary team Thanks for allowing me to participate in care of your patient. Will follow patient with you. Please call if any Qs. had d/w team Dr Edin Castro Office: [phone] Objective - Vital Signs/Intake and Output Vital Signs (last 24 hours): Temp Pulse Resp BP Pulse Ox 98.2 F 81 13 115/46 L 97 05/21/18 11:33 05/21/18 09:28 05/21/18 09:28 05/21/18 09:28 05/21/18 09:28 Intake and Output: 05/21/18 05/21/18 06:59 18:59 Intake Total 368.0 298.9 Balance 368.0 298.9 - Medications Medications: Current Medications Acetaminophen (Tylenol 650mg/20.3ml Solution Ud) 650 mg PO Q6 PRN PRN Reason: Fever >100.4 F or Pain Last Admin: 05/20/18 08:13 Dose: 650 mg Albuterol/Ipratropium (Duoneb 3 Mg/0.5 Mg (3 Ml) Ud) 3 ml INH RQ6 [facility] Last Admin: 05/21/18 13:11 Dose: 3 ml Dextrose (Dextrose 50% Inj) 0 ml IV STAT PRN; Protocol PRN Reason: Hypoglycemia Protocol Last Admin: 05/18/18 18:17 Dose: 50 ml Dextrose (Glutose 15) 0 gm PO ONCE PRN; Protocol PRN Reason: Hypoglycemia Protocol Epoetin Anthony (Procrit) 10,000 unit IV MWF [facility] Last Admin: 05/20/18 15:23 Dose: 10,000 unit Ergocalciferol (Drisdol 50,000 Intl Units Cap) 1 cap PO Q7D [facility] Last Admin: 05/18/18 13:24 Dose: 1 cap Ferrous Gluconate (Fergon) 324 mg PO TID [facility] Last Admin: 05/21/18 09:11 Dose: 324 mg Glucagon (Glucagen Diagnostic Kit) 0 mg IM STAT PRN; Protocol PRN Reason: Hypoglycemia Protocol Heparin Sodium (Porcine) (Heparin) 5,000 units SC Q12H [facility] Last Admin: 05/19/18 05:17 Dose: 5,000 units Dextrose (Dextrose 5% In Water 1000 Ml) 1,000 mls @ 0 mls/hr IV .Q0M PRN; Protocol PRN Reason: Hypoglycemia Protocol Aztreonam 1 gm/ Sodium (Chloride) 100 mls @ 100 mls/hr IVPB Q12H [facility]; Protocol Last Admin: 05/21/18 08:00 Dose: 100 mls/hr Clindamycin Phosphate 600 mg/ (Sodium Chloride) 54 mls @ 100 mls/hr IVPB Q8H [facility]; Protocol Last Admin: 05/21/18 05:40 Dose: 100 mls/hr Vancomycin/Sodium Chloride (Vancomycin 1 Gm/Ns 200 Ml) 1 gm in 200 mls @ 133.333 mls/hr IVPB MWF [facility]; Protocol Stop: 05/25/18 09:01 Last Admin: 05/20/18 09:30 Dose: Not Given Micafungin Sodium 100 mg/ (Sodium Chloride) 100 mls @ 100 mls/hr IV Q24H [facility]; Protocol Last Admin: 05/20/18 17:35 Dose: 100 mls/hr Dobutamine HCl/Dextrose (Dobutamine/Dextrose 5% 500mg/250ml) 500 mg in 250 mls @ 5.43 mls/hr IV .Q24H [facility]; Protocol Last Admin: 05/21/18 09:12 Dose: 2.5 mcg/kg/min, 5.43 mls/hr Insulin Aspart (Novolog) 0 unit SC Q6 [facility]; Protocol Last Admin: 05/21/18 11:33 Dose: Not Given Methylprednisolone (Solu-Medrol) 40 mg IVP Q8H [facility] Montelukast Sodium (Singulair) 10 mg PO HS [facility] Pantoprazole Sodium (Protonix Inj) 40 mg IVP DAILY [facility] Last Admin: 05/21/18 09:12 Dose: 40 mg Vitamin B Complex/Vit C/Folic Acid (Nephro-Pancho) 1 tab PO 0800 [facility] Last Admin: 05/21/18 09:00 Dose: 1 tab - Labs Labs: 05/21/18 06:22 05/21/18 06:22 PT 19.8 SECONDS (9.7-12.2) H 05/17/18 06:09 INR 1.8 05/17/18 06:09 APTT 40 SECONDS (21-34) H D 05/17/18 06:09
[2018-05-21] MEDS ORDERED: MethylPREDNISolone 40 mg Vial IVP SCH (15:00)
[2018-05-21] MEDS: Micafungin 100 MG in Sodium Chloride 0.9% 100 ML IV SCH (17:00)
--- NOTE | 2018-05-21 18:43 | CP.PCM.PN ---
Subjective - Date & Time of Evaluation Date of Evaluation: 05/21/18 Time of Evaluation: 08:00 - Subjective Subjective: more awake intubated family at bedside Objective - Vital Signs/Intake and Output Vital Signs (last 24 hours): Temp Pulse Resp BP Pulse Ox 98.8 F 99 H 18 125/46 L 96 05/21/18 16:00 05/21/18 18:00 05/21/18 18:00 05/21/18 17:58 05/21/18 18:00 Intake and Output: 05/21/18 05/21/18 06:59 18:59 Intake Total 368.0 659.7 Output Total 1 Balance 368.0 658.7 - Medications Medications: Current Medications Acetaminophen (Tylenol 650mg/20.3ml Solution Ud) 650 mg PO Q6 PRN PRN Reason: Fever >100.4 F or Pain Last Admin: 05/20/18 08:13 Dose: 650 mg Albuterol/Ipratropium (Duoneb 3 Mg/0.5 Mg (3 Ml) Ud) 3 ml INH RQ6 [facility] Last Admin: 05/21/18 13:11 Dose: 3 ml Dextrose (Dextrose 50% Inj) 0 ml IV STAT PRN; Protocol PRN Reason: Hypoglycemia Protocol Last Admin: 05/18/18 18:17 Dose: 50 ml Dextrose (Glutose 15) 0 gm PO ONCE PRN; Protocol PRN Reason: Hypoglycemia Protocol Epoetin Anthony (Procrit) 10,000 unit IV MWF [facility] Last Admin: 05/20/18 15:23 Dose: 10,000 unit Ergocalciferol (Drisdol 50,000 Intl Units Cap) 1 cap PO Q7D [facility] Last Admin: 05/18/18 13:24 Dose: 1 cap Ferrous Gluconate (Fergon) 324 mg PO TID [facility] Last Admin: 05/21/18 17:13 Dose: 324 mg Glucagon (Glucagen Diagnostic Kit) 0 mg IM STAT PRN; Protocol PRN Reason: Hypoglycemia Protocol Heparin Sodium (Porcine) (Heparin) 5,000 units SC Q12H [facility] Last Admin: 05/19/18 05:17 Dose: 5,000 units Dextrose (Dextrose 5% In Water 1000 Ml) 1,000 mls @ 0 mls/hr IV .Q0M PRN; Protocol PRN Reason: Hypoglycemia Protocol Aztreonam 1 gm/ Sodium (Chloride) 100 mls @ 100 mls/hr IVPB Q12H [facility]; Protocol Last Admin: 05/21/18 08:00 Dose: 100 mls/hr Clindamycin Phosphate 600 mg/ (Sodium Chloride) 54 mls @ 100 mls/hr IVPB Q8H [facility]; Protocol Last Admin: 05/21/18 14:00 Dose: 100 mls/hr Vancomycin/Sodium Chloride (Vancomycin 1 Gm/Ns 200 Ml) 1 gm in 200 mls @ 133.333 mls/hr IVPB MWF [facility]; Protocol Stop: 05/25/18 09:01 Last Admin: 05/20/18 09:30 Dose: Not Given Micafungin Sodium 100 mg/ (Sodium Chloride) 100 mls @ 100 mls/hr IV Q24H [facility]; Protocol Last Admin: 05/21/18 17:00 Dose: 100 mls/hr Dobutamine HCl/Dextrose (Dobutamine/Dextrose 5% 500mg/250ml) 500 mg in 250 mls @ 5.43 mls/hr IV .Q24H [facility]; Protocol Last Admin: 05/21/18 09:12 Dose: 2.5 mcg/kg/min, 5.43 mls/hr Insulin Aspart (Novolog) 0 unit SC Q6 [facility]; Protocol Last Admin: 05/21/18 18:06 Dose: 4 units Methylprednisolone (Solu-Medrol) 40 mg IVP Q8H [facility] Last Admin: 05/21/18 16:00 Dose: 40 mg Montelukast Sodium (Singulair) 10 mg PO HS [facility] Pantoprazole Sodium (Protonix Inj) 40 mg IVP DAILY [facility] Last Admin: 05/21/18 09:12 Dose: 40 mg Vitamin B Complex/Vit C/Folic Acid (Nephro-Pancho) 1 tab PO 0800 [facility] Last Admin: 05/21/18 09:00 Dose: 1 tab - Labs Labs: 05/21/18 06:22 05/21/18 06:22 PT 19.8 SECONDS (9.7-12.2) H 05/17/18 06:09 INR 1.8 05/17/18 06:09 APTT 40 SECONDS (21-34) H D 05/17/18 06:09 - Constitutional Appears: Non-toxic, Chronically Ill - Head Exam Head Exam: NORMOCEPHALIC - Eye Exam Eye Exam: Conjunctival injection. absent: Scleral icterus Pupil Exam: NORMAL ACCOMODATION - ENT Exam ENT Exam: Mucous Membranes Dry, Normal External Ear Exam - Neck Exam Neck Exam: absent: Lymphadenopathy - Respiratory Exam Respiratory Exam: Decreased Breath Sounds - Cardiovascular Exam Cardiovascular Exam: REGULAR RHYTHM - GI/Abdominal Exam GI & Abdominal Exam: Distended, Soft - Rectal Exam Rectal Exam: Deferred - Exam Exam: NORMAL INSPECTION - Extremities Exam Extremities Exam: Pedal Edema, Tenderness. absent: Normal Capillary Refill, Normal Inspection Additional comments: bullae left - Back Exam Back Exam: absent: CVA tenderness (L), CVA tenderness (R) - Psychiatric Exam Psychiatric exam: Depressed - Skin Skin Exam: absent: Dry Assessment and Plan (1) Multi-organ system dysfunction Status: Acute (2) Septic shock Status: Acute (3) Cellulitis of left lower extremity Status: Acute (4) Coagulopathy Status: Acute (5) Pancytopenia Status: Acute (6) Sepsis Status: Acute (7) Respiratory failure requiring intubation Status: Acute (8) Respiratory failure with hypoxia and hypercapnia Status: Acute (9) ARRON (acute kidney injury) Status: Acute - Assessment and Plan (Free Text) Assessment: cont IV antibiotics, mechanical vemtilation, wound care , and dialysis as needed Podiatry on board no immediate need for surgery at this time
[2018-05-21] MEDS: Acetaminophen 650mg/20.3ml solution UD PO PRN (20:56)
[2018-05-21] MEDS: MethylPREDNISolone 40 mg Vial IVP SCH (21:07)
[2018-05-22] MEDS ORDERED: Midazolam 5 MG/5 ML VIAL IVP ONE (00:54)
[2018-05-22] MEDS ORDERED: Midazolam 2 MG/2 ML VIAL IVP ONE (01:00)
[2018-05-22] MEDS: Albuterol-Ipratrop 3 mg / 0.5 (3 ml) UD INH SCH ×4 (01:08→19:33)
[2018-05-22 05:44] LABS: ABG ALLEN TEST POS; ARTERIAL BLOOD GAS HCO3 24.9 mmol/L (21-28); ARTERIAL BLOOD GAS O2 SAT 96.4 % (95-98); ARTERIAL BLOOD GAS PCO2 40 mm/Hg (35-45); ARTERIAL BLOOD GAS PO2 86 mm/Hg (80-100)
[2018-05-22] MEDS: (Novolog) Insulin Aspart, Recombinant 100 u/ml 10 ml vial SC SCH ×3 (06:03→18:04)
[2018-05-22 06:07] LABS: BASO % 0.1 % (0.0-2.0); HEMOGLOBIN 8.1 g/dL (11.0-16.0); LYMPH # 0.3 K/uL (1.0-4.3); LYMPH % 1.2 % (20.0-40.0); MEAN CELL VOLUME 101.9 fL (81.0-99.0); MEAN CORPUSCULAR HGB CONC 32.4 g/dL (33.0-37.0); MEAN PLATELET VOLUME 11.4 fL (7.2-11.7); MONO # 0.5 K/uL (0.0-0.8); MONO % 2.4 % (0.0-10.0); NEUT # 20.7 K/uL (1.8-7.0); NEUT % 96.3 % (50.0-75.0); NRBC % 0.1 % (0.0-2.0); PLATELET COUNT 83 K/uL (130-400); RBC 2.46 Mil/uL (3.80-5.20); RED CELL DISTRIBUTION WIDTH 16.3 % (11.5-14.5); WHITE BLOOD COUNT 21.5 K/uL (4.8-10.8)
[2018-05-22 06:45] LABS: ALBUMIN 2.8 g/dL (3.5-5.0); CALCIUM 8.3 mg/dl (8.6-10.4)
[2018-05-22 08:34] LABS: LYMPHOCYTE 1 % (20-40); MONOCYTE 2 % (0-10); NEUTROPHIL 97 % (50-75); TOTAL CELLS COUNTED 100
[2018-05-22 08:35] LABS: ANISOCYTOSIS SLIGHT; HYPOCHROMIC MODERATE; PLATELET ESTIMATE DECREASED (NORMAL); POIKILOCYTOSIS SLIGHT
[2018-05-22 08:36] LABS: TOXIC GRANULATION PRESENT
[2018-05-22] MEDS: Aztreonam 1 GM in Sodium Chloride 0.9% 100 ML IVPB SCH ×2 (08:58→20:00)
[2018-05-22] MEDS: Multivitamin Vitamin B Complex (Nephro-Vite) Tab PO SCH (08:58)
[2018-05-22] MEDS: MethylPREDNISolone 40 mg Vial IVP SCH ×3 (08:58→22:00)
[2018-05-22 08:59] LABS: ALB/GLOB RATIO 1.1 (1.0-2.1)
--- NOTE | 2018-05-22 08:59 | CP.PCM.PN ---
Subjective - Date & Time of Evaluation Date of Evaluation: 05/22/18 Time of Evaluation: 08:56 - Subjective Subjective: Podiatry Progress Note for Dr. Zhu 72F seen and evaluated at bedside for b/l leg swelling with serous liquid filled bullae. Patient is still intubated at this time but continues to improve in alertness. Per nursing, no acute overnight events. Objective - Vital Signs/Intake and Output Vital Signs (last 24 hours): Temp Pulse Resp BP Pulse Ox 100 F H 90 19 136/56 L 100 05/22/18 05:10 05/22/18 07:00 05/22/18 07:00 05/22/18 06:58 05/22/18 07:00 Intake and Output: 05/22/18 05/22/18 06:59 18:59 Intake Total 355.7 Balance 355.7 - Medications Medications: Current Medications Acetaminophen (Tylenol 650mg/20.3ml Solution Ud) 650 mg PO Q6 PRN PRN Reason: Fever >100.4 F or Pain Last Admin: 05/21/18 20:56 Dose: 650 mg Albuterol/Ipratropium (Duoneb 3 Mg/0.5 Mg (3 Ml) Ud) 3 ml INH RQ6 [facility] Last Admin: 05/22/18 07:35 Dose: 3 ml Dextrose (Dextrose 50% Inj) 0 ml IV STAT PRN; Protocol PRN Reason: Hypoglycemia Protocol Last Admin: 05/18/18 18:17 Dose: 50 ml Dextrose (Glutose 15) 0 gm PO ONCE PRN; Protocol PRN Reason: Hypoglycemia Protocol Epoetin Anthony (Procrit) 10,000 unit IV MWF [facility] Last Admin: 05/20/18 15:23 Dose: 10,000 unit Ergocalciferol (Drisdol 50,000 Intl Units Cap) 1 cap PO Q7D [facility] Last Admin: 05/18/18 13:24 Dose: 1 cap Ferrous Gluconate (Fergon) 324 mg PO TID [facility] Last Admin: 05/21/18 17:13 Dose: 324 mg Glucagon (Glucagen Diagnostic Kit) 0 mg IM STAT PRN; Protocol PRN Reason: Hypoglycemia Protocol Heparin Sodium (Porcine) (Heparin) 5,000 units SC Q12H [facility] Last Admin: 05/19/18 05:17 Dose: 5,000 units Dextrose (Dextrose 5% In Water 1000 Ml) 1,000 mls @ 0 mls/hr IV .Q0M [facility]; Protocol PRN Reason: Hypoglycemia Protocol Aztreonam 1 gm/ Sodium (Chloride) 100 mls @ 100 mls/hr IVPB Q12H [facility]; Protocol Last Admin: 05/21/18 19:44 Dose: 100 mls/hr Clindamycin Phosphate 600 mg/ (Sodium Chloride) 54 mls @ 100 mls/hr IVPB Q8H [facility]; Protocol Last Admin: 05/22/18 06:03 Dose: 100 mls/hr Vancomycin/Sodium Chloride (Vancomycin 1 Gm/Ns 200 Ml) 1 gm in 200 mls @ 133.333 mls/hr IVPB MWF [facility]; Protocol Stop: 05/25/18 09:01 Last Admin: 05/20/18 09:30 Dose: Not Given Micafungin Sodium 100 mg/ (Sodium Chloride) 100 mls @ 100 mls/hr IV Q24H [facility]; Protocol Last Admin: 05/21/18 17:00 Dose: 100 mls/hr Dobutamine HCl/Dextrose (Dobutamine/Dextrose 5% 500mg/250ml) 500 mg in 250 mls @ 5.43 mls/hr IV .Q24H [facility]; Protocol Last Titration: 05/22/18 01:30 Dose: 0 mcg/kg/min, 0 mls/hr Insulin Aspart (Novolog) 0 unit SC Q6 [facility]; Protocol Last Admin: 05/22/18 06:03 Dose: 4 units Methylprednisolone (Solu-Medrol) 40 mg IVP Q8H [facility] Last Admin: 05/21/18 21:07 Dose: 40 mg Montelukast Sodium (Singulair) 10 mg PO HS [facility] Last Admin: 05/21/18 21:07 Dose: 10 mg Pantoprazole Sodium (Protonix Inj) 40 mg IVP DAILY [facility] Last Admin: 05/21/18 09:12 Dose: 40 mg Vitamin B Complex/Vit C/Folic Acid (Nephro-Pancho) 1 tab PO 0800 [facility] Last Admin: 05/21/18 09:00 Dose: 1 tab - Labs Labs: 05/22/18 06:04 05/22/18 06:04 PT 19.8 SECONDS (9.7-12.2) H 05/17/18 06:09 INR 1.8 05/17/18 06:09 APTT 40 SECONDS (21-34) H D 05/17/18 06:09 - Constitutional Appears: No Acute Distress - Extremities Exam Additional comments: LLE focused exam: Vasc: DP/PT pulses non-palpable secondary to 2+ pitting edema, CFT < 3 seconds t o all digits, skin temperature warm to warm from proximal to distal WNL, no erythema present. Diffuse 2+ pitting edema noted to b/l LE clinically same as yesterday Neuro: Unable to assess secondary to patient mental state and intubation Derm: Three lysed bullae noted to lateral aspect of leg and one lysed bullae noted to medial aspect of leg. Wound bases are all granular in nature. New, tense, serous filled bullae noted to medial leg, distal to previously lanced bullae. No erythema noted at this time. MSK: No gross deformities noted. Unable to assess ROM or MMT at this time - Neurological Exam Neurological Exam: Alert, Awake - Psychiatric Exam Psychiatric exam: Normal Affect, Normal Mood Assessment and Plan - Assessment and Plan (Free Text) Assessment: 72F seen and evaluated at bedside for b/l leg swelling with serous liquid filled bullae. Plan: Patient seen and evaluated with Dr. Zhu WBC 21.5 Continue abx per ID Medial bullae lysed when touched revealing serous drainage, no purulence appreciated Wound culture from bullae: No growth after 24 hours Blood cx: Group C Strep Urine cx: E. coli Foot, ankle and tib/fib xrays show no evidence of soft tissue emphysema. Evidence of subcutaneous edema and cellulitis appreciated Bullae sites dressed with DSD, ABD No plan for surgical intervention at this time Podiatry will continue to follow while patient in house
[2018-05-22] MEDS ORDERED: Epoetin Alfa 10,000 unit/ml Dialysis IV SCH (09:00)
--- NOTE | 2018-05-22 10:04 | RAD ---
Date of service: 05/22/2018 HISTORY: ET tube COMPARISON: 05/21/2018. FINDINGS: The endotracheal tube terminates 1 cm proximal to the félix nasogastric tube terminates in the stomach. Right-sided central venous catheter terminates in the right atrium LUNGS: There is mild pulmonary venous congestion the right lung clear. There is interval development of dense opacification in the left mid lung and lower lobe. PLEURA: The left costophrenic angle is blunted. No large right pleural effusion. No pneumothorax. CARDIOVASCULAR: Persistent severe cardiomegaly. Status post CABG. There are aortic atherosclerotic calcifications present. OSSEOUS STRUCTURES: Within normal limits for the patient's age. VISUALIZED UPPER ABDOMEN: Normal. OTHER FINDINGS: None. IMPRESSION: 1. Interval opacification of the left mid lung and lower lobe which may represent pneumonia and/or pleural effusion. 2. Stable position of endotracheal and nasogastric tubes.
[2018-05-22] MEDS: Acetaminophen 650mg/20.3ml solution UD PO PRN ×2 (11:25→20:10)
[2018-05-22] MEDS: Moxifloxacin IV 400mg/250ml NS 400 MG/250 ML BAG IVPB SCH (13:54)
--- NOTE | 2018-05-22 14:50 | CP.PCM.PN ---
Subjective - Date & Time of Evaluation Date of Evaluation: 05/22/18 Time of Evaluation: 14:49 - Subjective Subjective: Nephrology Follow up Note HPI: 72-year-old female with a history of CHF, CAD, hypertension, hyperlipidemia, history of thyroid disease and renal disease, patient admitted to the hospital with a complaining of left lower extremity pain swelling of one day duration along with fever, followed by code sepsis, hypotension leading to resp distress and current intubation. Hx is obtained from charts. currrently intubated on pressors unknown baseline kidney disease, cr is now 3.1 UOP 10-15 cc per hour. on iv fluids and pressors Past medical history: Had a history of congestive heart failure, coronary artery disease, diabetes, hypertension, hypothyroidism, renal insufficiency. Patient has allergic to penicillin Surgical history include coronary artery bypass grafting x2 Social history: No smoking or drinking history noted Family history significant for diabetes and heart disease Medications at this time not available. 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 On ventilator. Chest left air entry reduced Heart sounds are regular Abdomen soft nontender. edema ++ awake calm Left lower extremity erythema, blisters, and swelling noted Assesment: stable oligoanuric ARRON likely ATN/septic shock with cellulitis and ? 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 maintain hemodynamics stable. Avoid hypotension. Patient not on ACEI/ARB due to recent ARRON Monitor Input/Output, daily weights and renal function with basic metabolic panel c/w Iron, MVI. PRBC as needed. epogen ordered supplement Vit D dose vanco by level. supplement lytes as needed Dose meds/antibiotics for reduced GFR. Avoid fleets enema/magnesium based laxatives. Avoid nephrotoxins/NSAIDs/ iodinated contrast (unless needed emergently) Glycemic control Further work up/management as per primary team Thanks for allowing me to participate in care of your patient. Will follow patient with you. Please call if any Qs. had d/w team and family Dr Edin Castro Office: [phone] Objective - Vital Signs/Intake and Output Vital Signs (last 24 hours): Temp Pulse Resp BP Pulse Ox 99.3 F 84 17 156/63 H 99 05/22/18 12:00 05/22/18 14:28 05/22/18 14:28 05/22/18 14:28 05/22/18 14:28 Intake and Output: 05/22/18 05/22/18 06:59 18:59 Intake Total 355.7 420 Balance 355.7 420 - Medications Medications: Current Medications Acetaminophen (Tylenol 650mg/20.3ml Solution Ud) 650 mg PO Q6 PRN PRN Reason: Fever >100.4 F or Pain Last Admin: 05/22/18 11:25 Dose: 650 mg Albuterol/Ipratropium (Duoneb 3 Mg/0.5 Mg (3 Ml) Ud) 3 ml INH RQ6 [facility] Last Admin: 05/22/18 14:15 Dose: 3 ml Dextrose (Dextrose 50% Inj) 0 ml IV STAT PRN; Protocol PRN Reason: Hypoglycemia Protocol Last Admin: 05/18/18 18:17 Dose: 50 ml Dextrose (Glutose 15) 0 gm PO ONCE PRN; Protocol PRN Reason: Hypoglycemia Protocol Epoetin Anthony (Procrit) 10,000 unit IV MWF [facility] Last Admin: 05/20/18 15:23 Dose: 10,000 unit Ergocalciferol (Drisdol 50,000 Intl Units Cap) 1 cap PO Q7D [facility] Last Admin: 05/18/18 13:24 Dose: 1 cap Ferrous Gluconate (Fergon) 324 mg PO TID [facility] Last Admin: 05/22/18 08:59 Dose: 324 mg Glucagon (Glucagen Diagnostic Kit) 0 mg IM STAT PRN; Protocol PRN Reason: Hypoglycemia Protocol Heparin Sodium (Porcine) (Heparin) 5,000 units SC Q12H [facility] Last Admin: 05/19/18 05:17 Dose: 5,000 units Dextrose (Dextrose 5% In Water 1000 Ml) 1,000 mls @ 0 mls/hr IV .Q0M PRN; Pro tocol PRN Reason: Hypoglycemia Protocol Aztreonam 1 gm/ Sodium (Chloride) 100 mls @ 100 mls/hr IVPB Q12H [facility]; Protocol Last Admin: 05/22/18 08:58 Dose: 100 mls/hr Clindamycin Phosphate 600 mg/ (Sodium Chloride) 54 mls @ 100 mls/hr IVPB Q8H [facility]; Protocol Last Admin: 05/22/18 13:19 Dose: 100 mls/hr Vancomycin/Sodium Chloride (Vancomycin 1 Gm/Ns 200 Ml) 1 gm in 200 mls @ 133.333 mls/hr IVPB MWF [facility]; Protocol Stop: 05/25/18 09:01 Last Admin: 05/20/18 09:30 Dose: Not Given Micafungin Sodium 100 mg/ (Sodium Chloride) 100 mls @ 100 mls/hr IV Q24H [facility]; Protocol Last Admin: 05/21/18 17:00 Dose: 100 mls/hr Dobutamine HCl/Dextrose (Dobutamine/Dextrose 5% 500mg/250ml) 500 mg in 250 mls @ 5.43 mls/hr IV .Q24H [facility]; Protocol Last Titration: 05/22/18 01:30 Dose: 0 mcg/kg/min, 0 mls/hr Moxifloxacin HCl (Avelox Iv 400mg/250ml Ns) 400 mg in 250 mls @ 167 mls/hr IVPB Q24H [facility]; Protocol Last Admin: 05/22/18 13:54 Dose: 167 mls/hr Insulin Aspart (Novolog) 0 unit SC Q6 [facility]; Protocol Last Admin: 05/22/18 11:45 Dose: 4 units Methylprednisolone (Solu-Medrol) 40 mg IVP Q8H [facility] Last Admin: 05/22/18 13:24 Dose: 40 mg Montelukast Sodium (Singulair) 10 mg PO HS [facility] Last Admin: 05/21/18 21:07 Dose: 10 mg Pantoprazole Sodium (Protonix Inj) 40 mg IVP DAILY [facility] Last Admin: 05/22/18 08:59 Dose: 40 mg Vitamin B Complex/Vit C/Folic Acid (Nephro-Pancho) 1 tab PO 0800 [facility] Last Admin: 05/22/18 08:58 Dose: 1 tab - Labs Labs: 05/22/18 06:04 05/22/18 06:04 PT 19.8 SECONDS (9.7-12.2) H 05/17/18 06:09 INR 1.8 05/17/18 06:09 APTT 40 SECONDS (21-34) H D 05/17/18 06:09
--- NOTE | 2018-05-22 15:32 | RAD ---
Date of service: 05/22/2018 HISTORY: Dyspnea COMPARISON: 05/22/2018. FINDINGS: Endotracheal tube terminates 1.3 cm proximal to the félix. The nasogastric tube terminates in the stomach. LUNGS: The lungs are well inflated. There is interval improved aeration in both lungs with near complete resolution of left lower lobe atelectasis/effusion. Persistent moderate pulmonary venous congestion PLEURA: Suspect small layering effusions. No pneumothorax. CARDIOVASCULAR: Persistent severe cardiomegaly. Status post CABG no aortic atherosclerotic calcifications present. OSSEOUS STRUCTURES: Within normal limits for the patient's age. VISUALIZED UPPER ABDOMEN: Normal. OTHER FINDINGS: None. IMPRESSION: Severe cardiomegaly, suspect layering effusions and moderate pulmonary venous congestion. Interval significant improved aeration in the left lung.
--- NOTE | 2018-05-22 16:00 | CP.PCM.PN ---
Subjective - Date & Time of Evaluation Date of Evaluation: 05/22/18 Time of Evaluation: 09:00 - Subjective Subjective: seen on rounds events noted cellulitis less severe Objective - Vital Signs/Intake and Output Vital Signs (last 24 hours): Temp Pulse Resp BP Pulse Ox 98 F 92 H 17 156/66 H 99 05/22/18 15:00 05/22/18 15:16 05/22/18 15:16 05/22/18 15:30 05/22/18 15:16 Intake and Output: 05/22/18 05/22/18 06:59 18:59 Intake Total 355.7 460 Balance 355.7 460 - Medications Medications: Current Medications Acetaminophen (Tylenol 650mg/20.3ml Solution Ud) 650 mg PO Q6 PRN PRN Reason: Fever >100.4 F or Pain Last Admin: 05/22/18 11:25 Dose: 650 mg Albuterol/Ipratropium (Duoneb 3 Mg/0.5 Mg (3 Ml) Ud) 3 ml INH RQ6 [facility] Last Admin: 05/22/18 14:15 Dose: 3 ml Dextrose (Dextrose 50% Inj) 0 ml IV STAT PRN; Protocol PRN Reason: Hypoglycemia Protocol Last Admin: 05/18/18 18:17 Dose: 50 ml Dextrose (Glutose 15) 0 gm PO ONCE PRN; Protocol PRN Reason: Hypoglycemia Protocol Epoetin Anthony (Procrit) 10,000 unit IV MWF [facility] Last Admin: 05/20/18 15:23 Dose: 10,000 unit Ergocalciferol (Drisdol 50,000 Intl Units Cap) 1 cap PO Q7D [facility] Last Admin: 05/18/18 13:24 Dose: 1 cap Ferrous Gluconate (Fergon) 324 mg PO TID [facility] Last Admin: 05/22/18 08:59 Dose: 324 mg Glucagon (Glucagen Diagnostic Kit) 0 mg IM STAT PRN; Protocol PRN Reason: Hypoglycemia Protocol Heparin Sodium (Porcine) (Heparin) 5,000 units SC Q12H [facility] Last Admin: 05/19/18 05:17 Dose: 5,000 units Aztreonam 1 gm/ Sodium (Chloride) 100 mls @ 100 mls/hr IVPB Q12H [facility]; Protocol Last Admin: 05/22/18 08:58 Dose: 100 mls/hr Clindamycin Phosphate 600 mg/ (Sodium Chloride) 54 mls @ 100 mls/hr IVPB Q8H [facility]; Protocol Last Admin: 05/22/18 13:19 Dose: 100 mls/hr Vancomycin/Sodium Chloride (Vancomycin 1 Gm/Ns 200 Ml) 1 gm in 200 mls @ 133.333 mls/hr IVPB MWF [facility]; Protocol Stop: 05/25/18 09:01 Last Admin: 05/20/18 09:30 Dose: Not Given Micafungin Sodium 100 mg/ (Sodium Chloride) 100 mls @ 100 mls/hr IV Q24H [facility]; Protocol Last Admin: 05/21/18 17:00 Dose: 100 mls/hr Dobutamine HCl/Dextrose (Dobutamine/Dextrose 5% 500mg/250ml) 500 mg in 250 mls @ 5.43 mls/hr IV .Q24H [facility]; Protocol Last Titration: 05/22/18 01:30 Dose: 0 mcg/kg/min, 0 mls/hr Moxifloxacin HCl (Avelox Iv 400mg/250ml Ns) 400 mg in 250 mls @ 167 mls/hr IVPB Q24H [facility]; Protocol Last Admin: 05/22/18 13:54 Dose: 167 mls/hr Insulin Aspart (Novolog) 0 unit SC Q6 [facility]; Protocol Last Admin: 05/22/18 11:45 Dose: 4 units Methylprednisolone (Solu-Medrol) 40 mg IVP Q8H [facility] Last Admin: 05/22/18 13:24 Dose: 40 mg Montelukast Sodium (Singulair) 10 mg PO HS [facility] Last Admin: 05/21/18 21:07 Dose: 10 mg Pantoprazole Sodium (Protonix Inj) 40 mg IVP DAILY [facility] Last Admin: 05/22/18 08:59 Dose: 40 mg Vitamin B Complex/Vit C/Folic Acid (Nephro-Pancho) 1 tab PO 0800 [facility] Last Admin: 05/22/18 08:58 Dose: 1 tab - Labs Labs: 05/22/18 06:04 05/22/18 06:04 PT 19.8 SECONDS (9.7-12.2) H 05/17/18 06:09 INR 1.8 05/17/18 06:09 APTT 40 SECONDS (21-34) H D 05/17/18 06:09 - Constitutional Appears: Confused, Cachectic, Chronically Ill - Head Exam Head Exam: NORMOCEPHALIC - Eye Exam Eye Exam: absent: Scleral icterus - ENT Exam ENT Exam: Mucous Membranes Dry - Neck Exam Neck Exam: absent: Lymphadenopathy - Respiratory Exam Respiratory Exam: Decreased Breath Sounds - Cardiovascular Exam Cardiovascular Exam: REGULAR RHYTHM - GI/Abdominal Exam GI & Abdominal Exam: Distended, Soft - Rectal Exam Rectal Exam: Deferred - Exam Exam: NORMAL INSPECTION - Extremities Exam Extremities Exam: absent: Pedal Edema - Back Exam Back Exam: absent: CVA tenderness (L), CVA tenderness (R) - Neurological Exam Neurological Exam: Alert, Awake, CN II-XII Intact, Oriented x3 - Psychiatric Exam Psychiatric exam: Depressed - Skin Skin Exam: Dry Assessment and Plan (1) Multi-organ system dysfunction Status: Acute (2) Septic shock Status: Acute (3) Cellulitis of left lower extremity Status: Acute (4) Coagulopathy Status: Acute (5) Pancytopenia Status: Acute (6) Sepsis Status: Acute (7) Respiratory failure requiring intubation Status: Acute (8) Respiratory failure with hypoxia and hypercapnia Status: Acute (9) ARRON (acute kidney injury) Status: Acute - Assessment and Plan (Free Text) Assessment: cont supportive care and IV antibiotics
[2018-05-22] MEDS: Micafungin 100 MG in Sodium Chloride 0.9% 100 ML IV SCH (17:57)
--- NOTE | 2018-05-22 18:45 | CP.CCUPN ---
<RodrickEloisa - Last Filed: 05/22/18 18:35> CCU Subjective - Physician Review Subjective (Free Text): 05/22/18 Overnight, pt pulled out NG tube, as per RN, may have aspirated in doing so. Pt seen and examined this am with Dr. Fragoso. Alert. Non verbal but follows commands. No acute distress noted. Intubated, placed on CPAP Critical Care Time Spent (in minutes): 35 CCU Objective - Vital Signs / Intake & Output Vital Signs (Last 4 hours): Vital Signs Temp Pulse Resp BP Pulse Ox 05/22/18 13:28 86 17 156/63 H 94 L 05/22/18 12:58 86 20 149/58 L 91 L 05/22/18 12:28 90 18 140/57 L 90 L 05/22/18 12:00 99.3 F 95 05/22/18 11:28 88 17 162/69 H 100 05/22/18 10:28 96 H 18 158/65 H 100 Intake and Output (Last 8hrs): Intake & Output 05/21/18 05/22/18 05/22/18 22:59 06:59 14:59 Intake Total 430.8 105.3 420 Output Total 1 Balance 429.8 105.3 420 Intake: IV 90 Intake, IV Amount 190.8 15.3 100 Left Forearm 150 Right Antecubital 0 Right Internal Jugular 40.8 15.3 100 Trialysis Catheter Tube Feeding 240 320 Output: Urine/Stool Mix 1 Other: # Voids Urine, Voided 0 # Bowel Movements 1 1 - Physical Exam Head: Positive for: Atraumatic, Normocephalic Pupils: Positive for: PERRL Extroacular Muscles: Positive for: EOMI Conjunctiva: Positive for: Normal Ears: Positive for: Normal Mouth: Positive for: Moist Mucous Membranes Nose (External): Positive for: Atraumatic Respiratory/Chest: Positive for: Clear to Auscultation Cardiovascular: Positive for: Regular Rate and Rhythm Abdomen: Positive for: Normal Bowel Sounds. Negative for: Tenderness, Distention Upper Extremity: Positive for: Edema Lower Extremity: Positive for: Edema, Other (skin blisters noted on L anterior calf) Neurological: Positive for: Other (intubated) Psychiatric: Positive for: Other (intubated). Negative for: Alert, Oriented x 3 - Medications Active Medications: Active Medications Generic Name Dose Route Start Last Admin Trade Name Freq PRN Reason Stop Dose Admin Acetaminophen 650 mg 05/18/18 00:30 05/22/18 11:25 Tylenol 650mg/20.3ml Solution Ud PO 650 mg Q6 PRN Administration Fever >100.4 F or Pain Albuterol/Ipratropium 3 ml 05/21/18 14:00 05/22/18 14:15 Duoneb 3 Mg/0.5 Mg (3 Ml) Ud INH 3 ml RQ6 LAURENCE Administration Dextrose 0 ml 05/16/18 18:32 05/18/18 18:17 Dextrose 50% Inj IV 50 ml STAT PRN Administration Hypoglycemia Protocol Protocol Dextrose 0 gm 05/16/18 18:32 Glutose 15 PO ONCE PRN Hypoglycemia Protocol Protocol Epoetin Anthony 10,000 unit 05/20/18 15:30 05/20/18 15:23 Procrit IV 10,000 unit MWF LAURENCE Administration Ergocalciferol 1 cap 05/18/18 10:45 05/18/18 13:24 Drisdol 50,000 Intl Units Cap PO 1 cap Q7D LAURENCE Administration Ferrous Gluconate 324 mg 05/18/18 14:00 05/22/18 08:59 Fergon PO 324 mg TID LAURENCE Administration Glucagon 0 mg 05/16/18 18:32 Glucagen Diagnostic Kit IM STAT PRN Hypoglycemia Protocol Protocol Heparin Sodium (Porcine) 5,000 units 05/16/18 17:45 05/19/18 05:17 Heparin SC 5,000 units Q12H LAURENCE Administration Dextrose 1,000 mls @ 0 mls/hr 05/16/18 18:32 Dextrose 5% In Water 1000 Ml IV .Q0M PRN Hypoglycemia Protocol Protocol Per Protocol Aztreonam 1 gm/ Sodium 100 mls @ 100 mls/hr 05/17/18 20:00 05/22/18 08:58 Chloride IVPB 100 mls/hr Q12H LAURENCE Administration Protocol Clindamycin Phosphate 600 mg/ 54 mls @ 100 mls/hr 05/17/18 22:00 05/22/18 13:19 Sodium Chloride IVPB 100 mls/hr Q8H LAURENCE Administration Protocol Vancomycin/Sodium Chloride 1 gm in 200 mls @ 133.333 mls/hr 05/20/18 09:00 05/20/18 09:30 Vancomycin 1 Gm/Ns 200 Ml IVPB 05/25/18 09:01 Not Given MWF LAURENCE Protocol Micafungin Sodium 100 mg/ 100 mls @ 100 mls/hr 05/20/18 18:00 05/21/18 17:00 Sodium Chloride IV 100 mls/hr Q24H LAURENCE Administration Protocol Dobutamine HCl/Dextrose 500 mg in 250 mls @ 5.43 mls/hr 05/21/18 09:00 05/22/18 01:30 Dobutamine/Dextrose 5% 500mg/250ml IV 0 mcg/kg/min .Q24H LAURENCE 0 mls/hr Titration Protocol 2.5 MCG/KG/MIN Moxifloxacin HCl 400 mg in 250 mls @ 167 mls/hr 05/22/18 14:00 05/22/18 13:54 Avelox Iv 400mg/250ml Ns IVPB 167 mls/hr Q24H LAURENCE Administration Protocol Insulin Aspart 0 unit 05/18/18 00:00 05/22/18 11:45 Novolog SC 4 units Q6 LAURENCE Administration Protocol Methylprednisolone 40 mg 05/21/18 22:00 05/22/18 13:24 Solu-Medrol IVP 40 mg Q8H LAURENCE Administration Montelukast Sodium 10 mg 05/21/18 22:00 05/21/18 21:07 Singulair PO 10 mg HS LAURENCE Administration Pantoprazole Sodium 40 mg 05/17/18 10:00 05/22/18 08:59 Protonix Inj IVP 40 mg DAILY LAURENCE Administration Vitamin B Complex/Vit C/Folic Acid 1 tab 05/19/18 08:00 05/22/18 08:58 Nephro-Pancho PO 1 tab 0800 LAURENCE Administration - Patient Studies Lab Studies: Microbiology Studies 05/20/18 09:04 Gram Stain - Final Leg - Left Wound Culture - Preliminary No growth. 05/19/18 15:55 Blood Culture - Preliminary Blood NO GROWTH AFTER 48 HOURS 05/19/18 16:05 Blood Culture - Preliminary Blood NO GROWTH AFTER 48 HOURS 05/19/18 11:56 Gram Stain - Final Sputum Sputum Culture - Final Escherichia Coli Lab Studies 05/22/18 05/22/18 05/22/18 Range/Units 06:04 06:04 06:04 WBC 21.5 H (4.8-10.8) K/uL RBC 2.46 L (3.80-5.20) Mil/uL Hgb 8.1 L (11.0-16.0) g/dL Hct 25.1 L (34.0-47.0) % MCV 101.9 H (81.0-99.0) fL MCH 33.0 H (27.0-31.0) pg MCHC 32.4 L (33.0-37.0) g/dL RDW 16.3 H (11.5-14.5) % Plt Count 83 L D (130-400) K/uL MPV 11.4 (7.2-11.7) fL Neut % (Auto) 96.3 H (50.0-75.0) % Lymph % (Auto) 1.2 L (20.0-40.0) % [place] % (Auto) 2.4 (0.0-10.0) % Eos % (Auto) 0.0 (0.0-4.0) % Baso % (Auto) 0.1 (0.0-2.0) % Neut # (Auto) 20.7 H (1.8-7.0) K/uL Lymph # (Auto) 0.3 L (1.0-4.3) K/uL [place] # (Auto) 0.5 (0.0-0.8) K/uL Eos # (Auto) 0.0 (0.0-0.7) K/uL Baso # (Auto) 0.0 (0.0-0.2) K/uL Neutrophils % (Manual) 97 H (50-75) % Lymphocytes % (Manual) 1 L (20-40) % Monocytes % (Manual) 2 (0-10) % Toxic Granulation Present Platelet Estimate Decreased L (NORMAL) Hypochromasia (manual) Moderate Poikilocytosis (manual Slight Anisocytosis (manual) Slight Puncture Site pCO2 (35-45) mm/Hg pO2 (80-100) mm/Hg HCO3 (21-28) mmol/L ABG pH (7.35-7.45) ABG Total CO2 (22-28) mmol/L ABG O2 Saturation (95-98) % ABG Base Excess (-2.0-3.0) mmol/L Nicolás Test ABG Potassium (3.6-5.2) mmol/L A-a O2 Difference mm/Hg Respiratory Index Sodium 138 (132-148) mmol/l Chloride 103 (98-107) mmol/L Glucose (65-105) mg/dl Lactate (0.7-2.1) mmol/L Vent Mode Mechanical Rate FiO2 % Tidal Volume PEEP Potassium 3.7 (3.6-5.2) mmol/L Carbon Dioxide 27 (22-30) mmol/L Anion Gap 13 (10-20) BUN 57 H (7-17) mg/dL Creatinine 3.0 H (0.7-1.2) mg/dL Est GFR ( Amer) 19 Est GFR (Non-Af Amer) 15 Random Glucose 223 H D (65-105) mg/dL Calcium 8.3 L (8.6-10.4) mg/dl Phosphorus 4.4 (2.5-4.5) mg/dL Magnesium 2.2 (1.6-2.3) mg/dL Total Bilirubin 0.9 (0.2-1.3) mg/dL AST 44 H D (14-36) U/L ALT 35 (9-52) U/L Alkaline Phosphatase 243 H D (38-126) U/L Total Protein 5.4 L (6.3-8.3) g/dL Albumin 2.8 L (3.5-5.0) g/dL Globulin 2.6 (2.2-3.9) gm/dL Albumin/Globulin Ratio 1.1 (1.0-2.1) Arterial Blood Potassium (3.6-5.2) mmol/L Random Vancomycin 20.1 ug/mL 05/22/18 05/21/18 Range/Units 05:29 15:27 WBC (4.8-10.8) K/uL RBC (3.80-5.20) Mil/uL Hgb (11.0-16.0) g/dL Hct (34.0-47.0) % MCV (81.0-99.0) fL MCH (27.0-31.0) pg MCHC (33.0-37.0) g/dL RDW (11.5-14.5) % Plt Count (130-400) K/uL MPV (7.2-11.7) fL Neut % (Auto) (50.0-75.0) % Lymph % (Auto) (20.0-40.0) % [place] % (Auto) (0.0-10.0) % Eos % (Auto) (0.0-4.0) % Baso % (Auto) (0.0-2.0) % Neut # (Auto) (1.8-7.0) K/uL Lymph # (Auto) (1.0-4.3) K/uL [place] # (Auto) (0.0-0.8) K/uL Eos # (Auto) (0.0-0.7) K/uL Baso # (Auto) (0.0-0.2) K/uL Neutrophils % (Manual) (50-75) % Lymphocytes % (Manual) (20-40) % Monocytes % (Manual) (0-10) % Toxic Granulation Platelet Estimate (NORMAL) Hypochromasia (manual) Poikilocytosis (manual Anisocytosis (manual) Puncture Site Rr pCO2 40 (35-45) mm/Hg pO2 86 (80-100) mm/Hg HCO3 24.9 (21-28) mmol/L ABG pH 7.40 (7.35-7.45) ABG Total CO2 26.0 (22-28) mmol/L ABG O2 Saturation 96.4 (95-98) % ABG Base Excess 0 (-2.0-3.0) mmol/L Nicolás Test Pos ABG Potassium 3.4 L (3.6-5.2) mmol/L A-a O2 Difference 78.0 mm/Hg Respiratory Index 0.9 Sodium 142.0 (132-148) mmol/l Chloride 106.0 (98-107) mmol/L Glucose 211 H (65-105) mg/dl Lactate 1.2 (0.7-2.1) mmol/L Vent Mode Prvc Mechanical Rate 18 FiO2 30.0 % Tidal Volume 500 PEEP 5 Potassium (3.6-5.2) mmol/L Carbon Dioxide (22-30) mmol/L Anion Gap (10-20) BUN (7-17) mg/dL Creatinine (0.7-1.2) mg/dL Est GFR ( Amer) Est GFR (Non-Af Amer) Random Glucose (65-105) mg/dL Calcium (8.6-10.4) mg/dl Phosphorus (2.5-4.5) mg/dL Magnesium (1.6-2.3) mg/dL Total Bilirubin (0.2-1.3) mg/dL AST (14-36) U/L ALT (9-52) U/L Alkaline Phosphatase (38-126) U/L Total Protein (6.3-8.3) g/dL Albumin (3.5-5.0) g/dL Globulin (2.2-3.9) gm/dL Albumin/Globulin Ratio (1.0-2.1) Arterial Blood Potassium 3.4 L (3.6-5.2) mmol/L Random Vancomycin 21.0 ug/mL Laboratory Results - last 24 hr 05/21/18 05/22/18 05/22/18 15:27 05:29 06:04 WBC 21.5 H RBC 2.46 L Hgb 8.1 L Hct 25.1 L MCV 101.9 H MCH 33.0 H MCHC 32.4 L RDW 16.3 H Plt Count 83 L D MPV 11.4 Neut % (Auto) 96.3 H Lymph % (Auto) 1.2 L [place] % (Auto) 2.4 Eos % (Auto) 0.0 Baso % (Auto) 0.1 Neut # (Auto) 20.7 H Lymph # (Auto) 0.3 L [place] # (Auto) 0.5 Eos # (Auto) 0.0 Baso # (Auto) 0.0 Neutrophils % (Manual) 97 H Lymphocytes % (Manual) 1 L Monocytes % (Manual) 2 Toxic Granulation Present Platelet Estimate Decreased L Hypochromasia (manual) Moderate Poikilocytosis (manual Slight Anisocytosis (manual) Slight Puncture Site Rr pCO2 40 pO2 86 HCO3 24.9 ABG pH 7.40 ABG Total CO2 26.0 ABG O2 Saturation 96.4 ABG Base Excess 0 Nicolás Test Pos ABG Potassium 3.4 L A-a O2 Difference 78.0 Respiratory Index 0.9 Sodium 142.0 Chloride 106.0 Glucose 211 H Lactate 1.2 Vent Mode Prvc Mechanical Rate 18 FiO2 30.0 Tidal Volume 500 PEEP 5 Potassium Carbon Dioxide Anion Gap BUN Creatinine Est GFR ( Amer) Est GFR (Non-Af Amer) Random Glucose Calcium Phosphorus Magnesium Total Bilirubin AST ALT Alkaline Phosphatase Total Protein Albumin Globulin Albumin/Globulin Ratio Arterial Blood Potassium 3.4 L Random Vancomycin 21.0 05/22/18 05/22/18 06:04 06:04 WBC RBC Hgb Hct MCV MCH MCHC RDW Plt Count MPV Neut % (Auto) Lymph % (Auto) [place] % (Auto) Eos % (Auto) Baso % (Auto) Neut # (Auto) Lymph # (Auto) [place] # (Auto) Eos # (Auto) Baso # (Auto) Neutrophils % (Manual) Lymphocytes % (Manual) Monocytes % (Manual) Toxic Granulation Platelet Estimate Hypochromasia (manual) Poikilocytosis (manual Anisocytosis (manual) Puncture Site pCO2 pO2 HCO3 ABG pH ABG Total CO2 ABG O2 Saturation ABG Base Excess Nicolás Test ABG Potassium A-a O2 Difference Respiratory Index Sodium 138 Chloride 103 Glucose Lactate Vent Mode Mechanical Rate FiO2 Tidal Volume PEEP Potassium 3.7 Carbon Dioxide 27 Anion Gap 13 BUN 57 H Creatinine 3.0 H Est GFR ( Amer) 19 Est GFR (Non-Af Amer) 15 Random Glucose 223 H D Calcium 8.3 L Phosphorus 4.4 Magnesium 2.2 Total Bilirubin 0.9 AST 44 H D ALT 35 Alkaline Phosphatase 243 H D Total Protein 5.4 L Albumin 2.8 L Globulin 2.6 Albumin/Globulin Ratio 1.1 Arterial Blood Potassium Random Vancomycin 20.1 Radiology Impressions: Radiology Impressions Chest X-Ray 05/22/18 08:00 IMPRESSION: 1. Interval opacification of the left mid lung and lower lobe which may represent pneumonia and/or pleural effusion. 2. Stable position of endotracheal and nasogastric tubes. Fingerstick Blood Sugar Results: 225 Assessment/Plan - Assessment and Plan (Free Text) Assessment: 72 y o female with PMhx CHF, CAD, HTN, HLD, hx thyroid disease and renal disease, who presented to the ED with c/o LLE swelling and pain x 1 day induration, was also having fever. Code Sepsis called in ED. Pt was admitted to medical floor. Pt had repeated episodes of tachycardia and hypotension, leading to [employer] on 05/15 in which pt became more lethargic-appearing on exam after vomiting episode, s/p intubation by anesthesia, pt was transferred to ICU for further monitoring. Acute respiratory failure likely 2/2 aspiration of bilious vomit. Intubated on vent, was extubated yesterday after tolerating CPAP trials well, however pt desaturated and became bradycardic approx 30 mins after, and thus was reintubated last evening. Was placed on Levophed drip for septic shock with Group C strep bacteremia from LLE cellulitis and urine cx pos for E. coli, tapered down, switched to Dobutamine. Presented with oliguria, acute tubular necrosis, started on HD 05/17/18, currently on HD MWF as per Nephro recs. LLE im aging negative for subcutaneous emphysema, Podiatry consulted. Plan: Neuro: -Currently intubated -No gross deficits on exam, cont to monitor Cardio: -Hx CABG, HTN, CHF, HLD - Acute CHF exacerbation -Dr. Ramires consulted, recs appreciated -Echo 05/15: LV function severely reduced, diffuse hypokinesis. EF 20%. Septum dyskinetic and demonstrates flattening, elevated RV pressure. R ventricle, L and R atria dilated. Severe pulmonary HTN. - C/W Dobutamine ggt to optimize EF - Repeat ECHO today; f/u report - Currently on Dobutamine drip Pulm: -Intubated on PRVC overnight. Switched to CPAP this am. -Noted to have Left upper lobe consolidation that was not presents in yesterdays Cxray. Likely aspiration given that pt removed her NG tube the night before -Endotracheal suctioning performed by Dr. Fragoso. Repeat Cxray shows improved aeration in left lung. -Weaning protocol and CPAP trials as tolerated -Maintain O2 sat > 92% -Bronchodilators -Acute respiratory failure likely 2/2 aspiration of bilious vomit -Vanco/Azactam/Clindamycin. Moxifloxacin added today for strong suspicion of VAP -Vanco trough elevated, Vanco dose to be held this am, repeat vanco level ordered -Leukocytosis trending down -Blood cxs growing Group C strep, urine cx growing E.coli GI: -NPO -Glucerna tube feeds -Protonix Heme: -Dr. Duggan consulted for pancytopenia, recs appreciated -Procrit MWF -H/H stable, cont to trend, transfuse prn -Thrombocytopenia stable, cont to trend Renal: -Oliguria, ATN -Dr. Pereira consulted, recs appreciated -HD MWF -[place] d/c'd ID: -Tx possible aspiration PNA/VAP and UTI as noted above -ID consulted, Dr. Guevara, recs appreciated -Podiatry consulted, Dr. Zhu, for L lower leg cellulitis/blister formation, recs appreciated No acute surgical intervention indicated at this time L Ankle XR: No evid of acute displaced fracture or doslocation. No obvious cortical destructive changes. Diffuse soft tissue swelling and infiltration c/w cellulitis however no evidence of subcutaneous emphysema is identified. -L Foot XR: No gas forming cellulitis. Soft tissue diffuse swelling - compatible with lymphedema and/or cellulitis. No periosteal reaction to suggest osteomyelitis noted. No gross osseous destruction appreciated. Generalized osteopenia and mild diffuse degenerative changes as above. -L tib/fib XR: No evidence of acute displaced fracture nor dislocation. No cortical destruction however does appear to be mild cortical thickening changes inviling the mid lateral fibula that could be reactive although early osteomyelitis not completely excluded. Consider f/u bone scan or MRI. Endo: -Hx DM2 -Fingersticks q6h -ISS -Hypoglycemic protocol PPX: -Protonix, Heparin on hold 2/2 low Hgb Pt seen, examined with, and plan discussed with Dr. Charissa Fragoso, attending physician. Eloisa Mensah, PGY2 <Cristian Fragoso - Last Filed: 05/26/18 20:29> CCU Objective - Vital Signs / Intake & Output Vital Signs (Last 4 hours): Vital Signs Pulse Resp BP Pulse Ox 05/26/18 19:28 84 15 101/53 L 99 05/26/18 18:28 92 H 22 121/61 100 05/26/18 17:28 90 19 111/56 L 100 05/26/18 16:29 96 H 14 140/59 L 100 Intake and Output (Last 8hrs): Intake & Output 05/26/18 05/26/18 05/26/18 06:59 14:59 22:59 Intake Total 33.6 67.6 500 Output Total 0 0 Balance 33.6 67.6 500 Weight 126 lb Intake: IV 55 Intake, IV Amount 33.6 12.6 Right Internal Jugular 33.6 12.6 Trialysis Catheter Oral 0 500 Tube Feeding 0 Output: Urine 0 0 Urine, Voided 0 0 Other: # Voids Urine, Voided 1 # Bowel Movements 1 1 1 - Medications Active Medications: Active Medications Generic Name Dose Route Start Last Admin Trade Name Freq PRN Reason Stop Dose Admin Acetaminophen 650 mg 05/18/18 00:30 05/24/18 21:19 Tylenol 650mg/20.3ml Solution Ud PO 650 mg Q6 PRN Administration Fever >100.4 F or Pain Albuterol/Ipratropium 3 ml 05/21/18 14:00 05/25/18 14:12 Duoneb 3 Mg/0.5 Mg (3 Ml) Ud INH Not Given RQ6 LAURENCE Dextrose 0 ml 05/16/18 18:32 05/18/18 18:17 Dextrose 50% Inj IV 50 ml STAT PRN Administration Hypoglycemia Protocol Protocol Dextrose 0 gm 05/16/18 18:32 Glutose 15 PO ONCE PRN Hypoglycemia Protocol Protocol Epoetin Anthony 10,000 unit 05/20/18 15:30 05/25/18 12:20 Procrit IV 10,000 unit MWF LAURENCE Administration Ergocalciferol 1 cap 05/18/18 10:45 05/25/18 10:05 Drisdol 50,000 Intl Units Cap PO 1 cap Q7D LAURENCE Administration Ferrous Gluconate 324 mg 05/18/18 14:00 05/26/18 18:10 Fergon PO 324 mg TID LAURENCE Administration Glucagon 0 mg 05/16/18 18:32 Glucagen Diagnostic Kit IM STAT PRN Hypoglycemia Protocol Protocol Heparin Sodium (Porcine) 5,000 units 05/25/18 22:00 05/26/18 15:00 Heparin SC 5,000 units Q8 LAURENCE Administration Aztreonam 1 gm/ Sodium 100 mls @ 100 mls/hr 05/17/18 20:00 05/26/18 08:05 Chloride IVPB 100 mls/hr Q12H LAURENCE Administration Protocol Clindamycin Phosphate 600 mg/ 54 mls @ 100 mls/hr 05/17/18 22:00 05/26/18 15:02 Sodium Chloride IVPB 100 mls/hr Q8H LAURENCE Administration Protocol Dopamine HCl/Dextrose 400 mg in 250 mls @ 4.305 mls/hr 05/25/18 14:00 05/26/18 10:30 Dopamine 400mg/250ml D5w IV 0 mcg/kg/min .Q24H PRN 0 mls/hr TITRATE PER MD ORDER Titration Protocol 2 MCG/KG/MIN Insulin Aspart 0 unit 05/18/18 00:00 05/26/18 18:09 Novolog SC 2 units Q6 LAURENCE Administration Protocol Montelukast Sodium 10 mg 05/21/18 22:00 05/25/18 23:00 Singulair PO 10 mg HS LAURENCE Administration Pantoprazole Sodium 40 mg 05/17/18 10:00 05/26/18 10:49 Protonix Inj IVP 40 mg DAILY LAURENCE Administration Vitamin B Complex/Vit C/Folic Acid 1 tab 05/19/18 08:00 05/26/18 10:49 Nephro-Pancho PO 1 tab 0800 LAURENCE Administration - Patient Studies Lab Studies: Lab Studies 05/26/18 05/26/18 05/25/18 Range/Units 06:20 06:20 23:27 WBC 14.4 H (4.8-10.8) K/uL RBC 2.79 L (3.80-5.20) Mil/uL Hgb 9.3 L (11.0-16.0) g/dL Hct 28.8 L (34.0-47.0) % MCV 103.3 H (81.0-99.0) fL MCH 33.5 H (27.0-31.0) pg MCHC 32.4 L (33.0-37.0) g/dL RDW 16.2 H (11.5-14.5) % Plt Count 129 L (130-400) K/uL MPV 11.0 (7.2-11.7) fL Neut % (Auto) 91.3 H (50.0-75.0) % Lymph % (Auto) 4.1 L (20.0-40.0) % [place] % (Auto) 3.9 (0.0-10.0) % Eos % (Auto) 0.5 (0.0-4.0) % Baso % (Auto) 0.2 (0.0-2.0) % Neut # (Auto) 13.2 H (1.8-7.0) K/uL Lymph # (Auto) 0.6 L (1.0-4.3) K/uL [place] # (Auto) 0.6 (0.0-0.8) K/uL Eos # (Auto) 0.1 (0.0-0.7) K/uL Baso # (Auto) 0.0 (0.0-0.2) K/uL Neutrophils % (Manual) 90 H (50-75) % Band Neutrophils % 1 (0-2) % Lymphocytes % (Manual) 4 L (20-40) % Monocytes % (Manual) 4 (0-10) % Eosinophils % (Manual) 1 (0-4) % Nucleated RBC % 3 H (0-0) % Platelet Estimate Slightly decreased L (NORMAL) Polychromasia Slight Hypochromasia (manual) Slight Poikilocytosis (manual Slight Anisocytosis (manual) Slight Macrocytosis (manual) Slight Sodium 137 (132-148) mmol/L Potassium 3.7 (3.6-5.2) mmol/L Chloride 102 (98-107) mmol/L Carbon Dioxide 29 (22-30) mmol/L Anion Gap 10 (10-20) BUN 45 H (7-17) mg/dL Creatinine 2.3 H (0.7-1.2) mg/dL Est GFR ( Amer) 25 Est GFR (Non-Af Amer) 21 POC Glucose (mg/dL) 161 H (65-110) mg/dL Random Glucose 143 H (65-105) mg/dL Calcium 7.8 L (8.6-10.4) mg/dl Phosphorus 4.8 H (2.5-4.5) mg/dL Magnesium 2.0 (1.6-2.3) mg/dL Total Bilirubin 0.9 (0.2-1.3) mg/dL AST 33 (14-36) U/L ALT 44 (9-52) U/L Alkaline Phosphatase 171 H (38-126) U/L Total Protein 5.0 L (6.3-8.3) g/dL Albumin 2.6 L (3.5-5.0) g/dL Globulin 2.5 (2.2-3.9) gm/dL Albumin/Globulin Ratio 1.0 (1.0-2.1) Laboratory Results - last 24 hr 05/25/18 05/26/18 05/26/18 23:27 06:20 06:20 WBC 14.4 H RBC 2.79 L Hgb 9.3 L Hct 28.8 L MCV 103.3 H MCH 33.5 H MCHC 32.4 L RDW 16.2 H Plt Count 129 L MPV 11.0 Neut % (Auto) 91.3 H Lymph % (Auto) 4.1 L [place] % (Auto) 3.9 Eos % (Auto) 0.5 Baso % (Auto) 0.2 Neut # (Auto) 13.2 H Lymph # (Auto) 0.6 L [place] # (Auto) 0.6 Eos # (Auto) 0.1 Baso # (Auto) 0.0 Neutrophils % (Manual) 90 H Band Neutrophils % 1 Lymphocytes % (Manual) 4 L Monocytes % (Manual) 4 Eosinophils % (Manual) 1 Nucleated RBC % 3 H Platelet Estimate Slightly decreased L Polychromasia Slight Hypochromasia (manual) Slight Poikilocytosis (manual Slight Anisocytosis (manual) Slight Macrocytosis (manual) Slight Sodium 137 Potassium 3.7 Chloride 102 Carbon Dioxide 29 Anion Gap 10 BUN 45 H Creatinine 2.3 H Est GFR ( Amer) 25 Est GFR (Non-Af Amer) 21 POC Glucose (mg/dL) 161 H Random Glucose 143 H Calcium 7.8 L Phosphorus 4.8 H Magnesium 2.0 Total Bilirubin 0.9 AST 33 ALT 44 Alkaline Phosphatase 171 H Total Protein 5.0 L Albumin 2.6 L Globulin 2.5 Albumin/Globulin Ratio 1.0 Radiology Impressions: Radiology Impressions Chest X-Ray 05/26/18 10:33 IMPRESSION: No acute infiltrate. Critical Care Progress Note - Nutrition Nutrition: Nutrition Category Date Time Status Liquid Diet [DIET] Diets 05/26/18 Lunch Active NPO Diet [DIET] Diets 05/27/18 Breakfast Active Assessment/Plan - Assessment and Plan (Free Text) Plan: Above patient seen and examined at bedside. Patient remains in heart failure -will benefit from negative balance with HD -CPAP and extubate post HD -cc time 35 minutes - Date & Time Date: 05/22/18 Time: 19:00
[2018-05-22] MEDS: Epoetin Alfa 10,000 unit/ml Dialysis IV SCH (20:00)
[2018-05-22] MEDS ORDERED: Oxycodone/Acetaminophen 5/325 mg Tab PO ONE (23:19)
[2018-05-23] MEDS: (Novolog) Insulin Aspart, Recombinant 100 u/ml 10 ml vial SC SCH ×4 (00:30→17:41)
[2018-05-23] MEDS ORDERED: Midazolam 5 MG/5 ML VIAL IVP ONE (01:25)
[2018-05-23] MEDS: Albuterol-Ipratrop 3 mg / 0.5 (3 ml) UD INH SCH ×4 (01:34→19:51)
[2018-05-23] MEDS ORDERED: Midazolam 2 MG/2 ML VIAL IVP ONE (02:00)
[2018-05-23] MEDS: Acetaminophen 650mg/20.3ml solution UD PO PRN ×4 (02:14→22:01)
[2018-05-23 05:21] LABS: ABG ALLEN TEST POS; ARTERIAL BLOOD GAS HCO3 28.4 mmol/L (21-28); ARTERIAL BLOOD GAS HEMOGLOBIN 8.3 g/dL (11.7-17.4); ARTERIAL BLOOD GAS O2 SAT 97.1 % (95-98); ARTERIAL BLOOD GAS PCO2 39 mm/Hg (35-45); ARTERIAL BLOOD GAS PH 7.47 (7.35-7.45); ARTERIAL BLOOD GAS PO2 124 mm/Hg (80-100); ARTERIAL BLOOD GAS TCO2 29.6 mmol/L (22-28)
[2018-05-23] MEDS: MethylPREDNISolone 40 mg Vial IVP SCH ×2 (06:00→13:46)
[2018-05-23 06:57] LABS: BASO % 0.1 % (0.0-2.0); EOS % 0.1 % (0.0-4.0); HEMOGLOBIN 8.3 g/dL (11.0-16.0); LYMPH # 0.3 K/uL (1.0-4.3); LYMPH % 1.3 % (20.0-40.0); MEAN CELL VOLUME 101.5 fL (81.0-99.0); MEAN CORPUSCULAR HEMOGLOBIN 33.1 pg (27.0-31.0); MEAN CORPUSCULAR HGB CONC 32.6 g/dL (33.0-37.0); MEAN PLATELET VOLUME 11.1 fL (7.2-11.7); MONO # 0.5 K/uL (0.0-0.8); MONO % 2.4 % (0.0-10.0); NEUT # 19.5 K/uL (1.8-7.0); NEUT % 96.1 % (50.0-75.0); NRBC % 0.6 % (0.0-2.0); PLATELET COUNT 102 K/uL (130-400); RBC 2.51 Mil/uL (3.80-5.20); RED CELL DISTRIBUTION WIDTH 16.1 % (11.5-14.5); WHITE BLOOD COUNT 20.2 K/uL (4.8-10.8)
[2018-05-23] MEDS: Aztreonam 1 GM in Sodium Chloride 0.9% 100 ML IVPB SCH ×2 (08:00→20:00)
[2018-05-23] MEDS: Multivitamin Vitamin B Complex (Nephro-Vite) Tab PO SCH (08:15)
[2018-05-23 08:27] LABS: LYMPHOCYTE 2 % (20-40); MONOCYTE 4 % (0-10); NEUTROPHIL 94 % (50-75); NUCLEATED RED BLOOD CELL 1 % (0-0); PLATELET ESTIMATE SLIGHTLY DECREASED (NORMAL); TOTAL CELLS COUNTED 100
[2018-05-23 08:28] LABS: ANISOCYTOSIS SLIGHT; HYPOCHROMIC SLIGHT
[2018-05-23 08:29] LABS: OVALOCYTES SLIGHT; POIKILOCYTOSIS SLIGHT; POLYCHROMIC SLIGHT
[2018-05-23 08:30] LABS: LARGE PLATELETS PRESENT; TOXIC GRANULATION PRESENT
--- NOTE | 2018-05-23 10:56 | CARD ---
APPROVED REPORT Date of service: 05/21/2018 EXAM: LIMITED Two-dimensional and M-mode echocardiogram with Doppler and color Doppler. Other Information Quality : GoodRhythm : INDICATION LIMITED ECHO TO EVALUATE MITRAL REG. 2D DIMENSIONS LA [id number] (18-58mL)LVEF (Pop's)40 % M-Mode DIMENSIONS TAPSE11.71 cm Mitral Valve MV E Qkqlhdga915.2cm/sMV A Dhxrccjz60.3cm/sE/A ratio1.4 CCUG730.36 cm/s TDI E/Lateral E'0.0E/Medial E'0.0 <Conclusion> Limited study oredered to assess Mitral regurgitation Mitral regurgitation moderate. Central jet No Mitral valve prolapse. No vegetations seen Mitral annular calcification noted C/W prior study EF improved to 30-35% Cathere tip seen in RA No other significant changes noted
--- NOTE | 2018-05-23 10:58 | CP.PCM.PN ---
Subjective - Date & Time of Evaluation Date of Evaluation: 05/23/18 Time of Evaluation: 10:56 - Subjective Subjective: Podiatry Progress Note for Dr. Zhu 72F seen and evaluated at bedside for b/l leg swelling with serous liquid filled bullae of left leg. Patient is still intubated at this time. Per nursing, no acute overnight events. Objective - Vital Signs/Intake and Output Vital Signs (last 24 hours): Temp Pulse Resp BP Pulse Ox 100 F H 112 H 18 156/63 H 100 05/23/18 09:15 05/23/18 10:00 05/23/18 10:00 05/23/18 08:50 05/23/18 10:00 Intake and Output: 05/23/18 05/23/18 06:59 18:59 Intake Total 860 410 Balance 860 410 - Medications Medications: Current Medications Acetaminophen (Tylenol 650mg/20.3ml Solution Ud) 650 mg PO Q6 PRN PRN Reason: Fever >100.4 F or Pain Last Admin: 05/23/18 08:15 Dose: 650 mg Albuterol/Ipratropium (Duoneb 3 Mg/0.5 Mg (3 Ml) Ud) 3 ml INH RQ6 [facility] Last Admin: 05/23/18 07:40 Dose: 3 ml Dextrose (Dextrose 50% Inj) 0 ml IV STAT PRN; Protocol PRN Reason: Hypoglycemia Protocol Last Admin: 05/18/18 18:17 Dose: 50 ml Dextrose (Glutose 15) 0 gm PO ONCE PRN; Protocol PRN Reason: Hypoglycemia Protocol Epoetin Anthony (Procrit) 10,000 unit IV MWF [facility] Last Admin: 05/20/18 15:23 Dose: 10,000 unit Ergocalciferol (Drisdol 50,000 Intl Units Cap) 1 cap PO Q7D [facility] Last Admin: 05/18/18 13:24 Dose: 1 cap Ferrous Gluconate (Fergon) 324 mg PO TID [facility] Last Admin: 05/23/18 09:18 Dose: 324 mg Glucagon (Glucagen Diagnostic Kit) 0 mg IM STAT PRN; Protocol PRN Reason: Hypoglycemia Protocol Heparin Sodium (Porcine) (Heparin) 5,000 units SC Q12H [facility] Last Admin: 05/19/18 05:17 Dose: 5,000 units Aztreonam 1 gm/ Sodium (Chloride) 100 mls @ 100 mls/hr IVPB Q12H [facility]; Protocol Last Admin: 05/23/18 08:00 Dose: 100 mls/hr Clindamycin Phosphate 600 mg/ (Sodium Chloride) 54 mls @ 100 mls/hr IVPB Q8H [facility]; Protocol Last Admin: 05/23/18 06:00 Dose: 100 mls/hr Vancomycin/Sodium Chloride (Vancomycin 1 Gm/Ns 200 Ml) 1 gm in 200 mls @ 1 33.333 mls/hr IVPB MWF [facility]; Protocol Stop: 05/25/18 09:01 Last Admin: 05/20/18 09:30 Dose: Not Given Micafungin Sodium 100 mg/ (Sodium Chloride) 100 mls @ 100 mls/hr IV Q24H [facility]; Protocol Last Admin: 05/22/18 17:57 Dose: 100 mls/hr Dobutamine HCl/Dextrose (Dobutamine/Dextrose 5% 500mg/250ml) 500 mg in 250 mls @ 5.43 mls/hr IV .Q24H [facility]; Protocol Last Titration: 05/22/18 01:30 Dose: 0 mcg/kg/min, 0 mls/hr Moxifloxacin HCl (Avelox Iv 400mg/250ml Ns) 400 mg in 250 mls @ 167 mls/hr IVPB Q24H [facility]; Protocol Last Admin: 05/22/18 13:54 Dose: 167 mls/hr Insulin Aspart (Novolog) 0 unit SC Q6 [facility]; Protocol Last Admin: 05/23/18 06:15 Dose: 8 units Methylprednisolone (Solu-Medrol) 40 mg IVP Q8H [facility] Last Admin: 05/23/18 06:00 Dose: 40 mg Montelukast Sodium (Singulair) 10 mg PO HS [facility] Last Admin: 05/22/18 22:27 Dose: 10 mg Pantoprazole Sodium (Protonix Inj) 40 mg IVP DAILY [facility] Last Admin: 05/23/18 09:18 Dose: 40 mg Vitamin B Complex/Vit C/Folic Acid (Nephro-Pancho) 1 tab PO 0800 [facility] Last Admin: 05/23/18 08:15 Dose: 1 tab - Labs Labs: 05/23/18 06:54 05/22/18 06:04 PT 19.8 SECONDS (9.7-12.2) H 05/17/18 06:09 INR 1.8 05/17/18 06:09 APTT 40 SECONDS (21-34) H D 05/17/18 06:09 - Constitutional Appears: No Acute Distress - Extremities Exam Additional comments: LLE focused exam: Vasc: DP/PT pulses non-palpable secondary to 2+ pitting edema, CFT < 3 seconds to all digits, skin temperature warm to warm from proximal to distal WNL, no erythema present. Diffuse 2+ pitting edema noted to b/l LE clinically same as yesterday, edema is noted to be improving Neuro: Unable to assess secondary to patient mental state and intubation Derm: Three lysed bullae noted to lateral aspect of leg and one lysed bullae noted to medial aspect of leg. Wound bases are all granular in nature. No erythema noted at this time. No new bullae noted today MSK: No gross deformities noted. Unable to assess ROM or MMT at this time - Neurological Exam Neurological Exam: Alert, Awake Assessment and Plan - Assessment and Plan (Free Text) Assessment: 72F seen and evaluated at bedside for b/l leg swelling with serous liquid filled bullae of left leg Plan: Patient seen and evaluated with Dr. Zhu WBC 20.2 Continue abx per ID Wound culture from bullae: No growth after 24 hours Blood cx: Group C Strep Urine cx: E. coli Foot, ankle and tib/fib xrays show no evidence of soft tissue emphysema. Evidence of subcutaneous edema and cellulitis appreciated Bullae sites dressed with DSD, ABD No plan for surgical intervention at this time Podiatry will continue to follow while patient in house
--- NOTE | 2018-05-23 11:49 | CP.PCM.CON ---
<Mychal Razo - Last Filed: 05/24/18 13:52> History of Present Illness - History of Present Illness History of Present Illness: General Surgery Consult Note for Dr. koo reason for Consult: tracheostomy 72 F with PMH of CAD, CHF, Diabetes, HTN, CABG presented to [facility] [place] intially for Lower extremity pain. Patient developed hypotension and eventually respiratory failure then was subsequently intubated. Patient has been intubated for over 1 weeks. ICU attempted to extubate patient but she developed bradycardia and had to be reintubated. Her GCS is 11T. She is responding to simple questions and following commands. Family was present at bedside and are amenable to tracheostomy but wants to make sure patient cannot be extubated before having procedure. PMH: CAD, CHF, DM PSH: CABG ALL: PCN Review of Systems - Review of Systems All systems: reviewed and no additional remarkable complaints except (as per HPI) Past Patient History - Past Medical History & Family History Past Medical History?: Yes - Past Social History Smoking Status: Never Smoked - CARDIAC Hx Congestive Heart Failure: Yes Hx Hypertension: Yes - ENDOCRINE/METABOLIC Hx Endocrine Disorders: Yes Hx Diabetes Mellitus Type 2: Yes - MUSCULOSKELETAL/RHEUMATOLOGICAL Hx Falls: Yes - PSYCHIATRIC Hx Substance Use: No - SURGICAL HISTORY Hx Coronary Artery Bypass Graft: Yes - ANESTHESIA Hx Anesthesia: Yes Has any member of the family had a problem w/ anesthesia?: No Meds Allergies/Adverse Reactions: Allergies Allergy/AdvReac Type Severity Reaction Status Date / Time Penicillins Allergy Verified 05/15/18 11:34 - Medications Medications: Current Medications Acetaminophen (Tylenol 650mg/20.3ml Solution Ud) 650 mg PO Q6 PRN PRN Reason: Fever >100.4 F or Pain Last Admin: 05/23/18 08:15 Dose: 650 mg Albuterol/Ipratropium (Duoneb 3 Mg/0.5 Mg (3 Ml) Ud) 3 ml INH RQ6 [facility] Last Admin: 05/23/18 07:40 Dose: 3 ml Dextrose (Dextrose 50% Inj) 0 ml IV STAT PRN; Protocol PRN Reason: Hypoglycemia Protocol Last Admin: 05/18/18 18:17 Dose: 50 ml Dextrose (Glutose 15) 0 gm PO ONCE PRN; Protocol PRN Reason: Hypoglycemia Protocol Epoetin Anthony (Procrit) 10,000 unit IV MWF [facility] Last Admin: 05/20/18 15:23 Dose: 10,000 unit Ergocalciferol (Drisdol 50,000 Intl Units Cap) 1 cap PO Q7D [facility] Last Admin: 05/18/18 13:24 Dose: 1 cap Ferrous Gluconate (Fergon) 324 mg PO TID [facility] Last Admin: 05/23/18 09:18 Dose: 324 mg Glucagon (Glucagen Diagnostic Kit) 0 mg IM STAT PRN; Protocol PRN Reason: Hypoglycemia Protocol Heparin Sodium (Porcine) (Heparin) 5,000 units SC Q12H [facility] Last Admin: 05/19/18 05:17 Dose: 5,000 units Aztreonam 1 gm/ Sodium (Chloride) 100 mls @ 100 mls/hr IVPB Q12H [facility]; Protocol Last Admin: 05/23/18 08:00 Dose: 100 mls/hr Clindamycin Phosphate 600 mg/ (Sodium Chloride) 54 mls @ 100 mls/hr IVPB Q8H [facility]; Protocol Last Admin: 05/23/18 06:00 Dose: 100 mls/hr Vancomycin/Sodium Chloride (Vancomycin 1 Gm/Ns 200 Ml) 1 gm in 200 mls @ 133.333 mls/hr IVPB MWF [facility]; Protocol Stop: 05/25/18 09:01 Last Admin: 05/20/18 09:30 Dose: Not Given Micafungin Sodium 100 mg/ (Sodium Chloride) 100 mls @ 100 mls/hr IV Q24H [facility]; Protocol Last Admin: 05/22/18 17:57 Dose: 100 mls/hr Dobutamine HCl/Dextrose (Dobutamine/Dextrose 5% 500mg/250ml) 500 mg in 250 mls @ 5.43 mls/hr IV .Q24H [facility]; Protocol Last Titration: 05/22/18 01:30 Dose: 0 mcg/kg/min, 0 mls/hr Moxifloxacin HCl (Avelox Iv 400mg/250ml Ns) 400 mg in 250 mls @ 167 mls/hr IVPB Q24H [facility]; Protocol Last Admin: 05/22/18 13:54 Dose: 167 mls/hr Insulin Aspart (Novolog) 0 unit SC Q6 [facility]; Protocol Last Admin: 05/23/18 06:15 Dose: 8 units Methylprednisolone (Solu-Medrol) 40 mg IVP Q8H [facility] Last Admin: 05/23/18 06:00 Dose: 40 mg Montelukast Sodium (Singulair) 10 mg PO HS [facility] Last Admin: 05/22/18 22:27 Dose: 10 mg Pantoprazole Sodium (Protonix Inj) 40 mg IVP DAILY [facility] Last Admin: 05/23/18 09:18 Dose: 40 mg Vitamin B Complex/Vit C/Folic Acid (Nephro-Pancho) 1 tab PO 0800 [facility] Last Admin: 05/23/18 08:15 Dose: 1 tab Physical Exam - Constitutional Appears: Chronically Ill - Head Exam Head Exam: ATRAUMATIC, NORMOCEPHALIC - Eye Exam Eye Exam: EOMI, Normal appearance Pupil Exam: PERRL - ENT Exam Additional comments: ETT in place - Respiratory Exam Additional comments: intubated and on PRVC - Cardiovascular Exam Cardiovascular Exam: REGULAR RHYTHM - GI/Abdominal Exam GI & Abdominal Exam: Soft. absent: Tenderness - Extremities Exam Extremities exam: Positive for: normal capillary refill, pedal pulses present. Negative for: calf tenderness - Back Exam Back exam: absent: CVA tenderness (L), CVA tenderness (R) - Neurological Exam Neurological exam: Alert Additional comments: [id number] - Psychiatric Exam Psychiatric exam: Normal Affect, Normal Mood - Skin Skin Exam: Dry, Intact, Warm Results - Vital Signs Recent Vital Signs: Last Vital Signs Temp 100 F H 05/23/18 09:15 Pulse 112 H 05/23/18 10:00 Resp 18 05/23/18 10:00 BP 156/63 H 05/23/18 08:50 Pulse Ox 100 05/23/18 10:00 - Labs Result Diagrams: 05/24/18 07:04 05/24/18 07:04 Labs: Laboratory Results - last 24 hr 05/21/18 05/23/18 05/23/18 12:38 05:15 06:31 WBC RBC Hgb Hct MCV MCH MCHC RDW Plt Count MPV Neut % (Auto) Lymph % (Auto) [place] % (Auto) Eos % (Auto) Baso % (Auto) Neut # (Auto) Lymph # (Auto) [place] # (Auto) Eos # (Auto) Baso # (Auto) Neutrophils % (Manual) Lymphocytes % (Manual) Monocytes % (Manual) Nucleated RBC % Toxic Granulation Platelet Estimate Large Platelets Polychromasia Hypochromasia (manual) Poikilocytosis (manual Anisocytosis (manual) Macrocytosis (manual) Ovalocytes Puncture Site Rr pCO2 39 pO2 124 H HCO3 28.4 H ABG pH 7.47 H ABG Total CO2 29.6 H ABG O2 Saturation 97.1 ABG Base Excess 4.4 H ABG Hemoglobin 8.3 L ABG Carboxyhemoglobin 0.4 L POC ABG HHb (Measured) 2.9 ABG Methemoglobin 0.4 Nicolás Test Pos A-a O2 Difference 112.0 Respiratory Index 0.9 Hgb O2 Saturation 96.4 Vent Mode Prvc Mechanical Rate 15 FiO2 40.0 Tidal Volume 440 PEEP 5 Phosphorus 3.2 Magnesium 2.1 C. difficile Ag & Toxin Negative 05/23/18 06:54 WBC 20.2 H RBC 2.51 L Hgb 8.3 L Hct 25.5 L MCV 101.5 H MCH 33.1 H MCHC 32.6 L RDW 16.1 H Plt Count 102 L MPV 11.1 Neut % (Auto) 96.1 H Lymph % (Auto) 1.3 L [place] % (Auto) 2.4 Eos % (Auto) 0.1 Baso % (Auto) 0.1 Neut # (Auto) 19.5 H Lymph # (Auto) 0.3 L [place] # (Auto) 0.5 Eos # (Auto) 0.0 Baso # (Auto) 0.0 Neutrophils % (Manual) 94 H Lymphocytes % (Manual) 2 L Monocytes % (Manual) 4 Nucleated RBC % 1 H Toxic Granulation Present Platelet Estimate Slightly decreased L Large Platelets Present Polychromasia Slight Hypochromasia (manual) Slight Poikilocytosis (manual Slight Anisocytosis (manual) Slight Macrocytosis (manual) Slight Ovalocytes Slight Puncture Site pCO2 pO2 HCO3 ABG pH ABG Total CO2 ABG O2 Saturation ABG Base Excess ABG Hemoglobin ABG Carboxyhemoglobin POC ABG HHb (Measured) ABG Methemoglobin Nicolás Test A-a O2 Difference Respiratory Index Hgb O2 Saturation Vent Mode Mechanical Rate FiO2 Tidal Volume PEEP Phosphorus Magnesium C. difficile Ag & Toxin Assessment & Plan - Assessment and Plan (Free Text) Assessment: 72 F with respiratory failure and inability to wean from vent Plan: -Possible tracheostomy Thursday 05/25 -Will discuss with family -Medical optimaztion -Medical management as per ICU -Discussed with Dr. wilton Razo PGY2 <Lee Koo - Last Filed: 05/27/18 17:30> Meds - Medications Medications: Current Medications Acetaminophen (Tylenol 650mg/20.3ml Solution Ud) 650 mg PO Q6 PRN PRN Reason: Fever >100.4 F or Pain Last Admin: 05/27/18 12:38 Dose: 650 mg Albuterol/Ipratropium (Duoneb 3 Mg/0.5 Mg (3 Ml) Ud) 3 ml INH RQ6 [facility] Last Admin: 05/25/18 14:12 Dose: Not Given Dextrose (Dextrose 50% Inj) 0 ml IV STAT PRN; Protocol PRN Reason: Hypoglycemia Protocol Last Admin: 05/18/18 18:17 Dose: 50 ml Dextrose (Glutose 15) 0 gm PO ONCE PRN; Protocol PRN Reason: Hypoglycemia Protocol Epoetin Anthony (Procrit) 10,000 unit IV MWF [facility] Last Admin: 05/27/18 10:18 Dose: 10,000 unit Ergocalciferol (Drisdol 50,000 Intl Units Cap) 1 cap PO Q7D [facility] Last Admin: 05/25/18 10:05 Dose: 1 cap Ferrous Gluconate (Fergon) 324 mg PO TID [facility] Last Admin: 05/27/18 17:06 Dose: 324 mg Glucagon (Glucagen Diagnostic Kit) 0 mg IM STAT PRN; Protocol PRN Reason: Hypoglycemia Protocol Heparin Sodium (Porcine) (Heparin) 5,000 units SC Q8 [facility] Last Admin: 05/27/18 14:52 Dose: 5,000 units Aztreonam 1 gm/ Sodium (Chloride) 100 mls @ 100 mls/hr IVPB Q12H [facility]; Protocol Last Admin: 05/27/18 08:30 Dose: 100 mls/hr Clindamycin Phosphate 600 mg/ (Sodium Chloride) 54 mls @ 100 mls/hr IVPB Q8H [facility]; Protocol Last Admin: 05/27/18 14:52 Dose: 100 mls/hr Dopamine HCl/Dextrose (Dopamine 400mg/250ml D5w) 400 mg in 250 mls @ 4.305 mls/hr IV .Q24H [facility]; Protocol PRN Reason: TITRATE PER MD ORDER Last Titration: 05/26/18 10:30 Dose: 0 mcg/kg/min, 0 mls/hr Sodium Chloride (Sodium Chloride 0.9%) 1,000 mls @ 50 mls/hr IV .Q20H [facility] Insulin Aspart (Novolog) 0 unit SC ACHS [facility]; Protocol Last Admin: 05/27/18 17:05 Dose: 2 units Montelukast Sodium (Singulair) 10 mg PO HS [facility] Last Admin: 05/26/18 21:15 Dose: 10 mg Pantoprazole Sodium (Protonix Inj) 40 mg IVP DAILY [facility] Last Admin: 05/27/18 09:35 Dose: 40 mg Vitamin B Complex/Vit C/Folic Acid (Nephro-Pancho) 1 tab PO 0800 [facility] Last Admin: 05/27/18 08:00 Dose: 1 tab Results - Vital Signs Recent Vital Signs: Last Vital Signs Temp 98 F 05/27/18 12:40 Pulse 92 H 05/27/18 17:18 Resp 15 05/27/18 17:18 BP 106/49 L 05/27/18 17:18 Pulse Ox 94 L 05/27/18 16:18 - Labs Result Diagrams: 05/27/18 05:54 05/27/18 05:52 Labs: Laboratory Results - last 24 hr 05/27/18 05/27/18 05/27/18 05:52 05:54 05:54 WBC 11.7 H RBC 2.64 L Hgb 8.9 L Hct 27.6 L MCV 104.5 H MCH 33.6 H MCHC 32.1 L RDW 16.2 H Plt Count 150 MPV 10.3 Neut % (Auto) 88.0 H Lymph % (Auto) 5.2 L [place] % (Auto) 5.4 Eos % (Auto) 1.0 Baso % (Auto) 0.4 Neut # (Auto) 10.3 H Lymph # (Auto) 0.6 L [place] # (Auto) 0.6 Eos # (Auto) 0.1 Baso # (Auto) 0.0 Neutrophils % (Manual) 90 H Band Neutrophils % 1 Lymphocytes % (Manual) 4 L Monocytes % (Manual) 4 Eosinophils % (Manual) 1 Nucleated RBC % 2 H Platelet Estimate Normal Large Platelets Present Hypochromasia (manual) Slight Poikilocytosis (manual Slight Anisocytosis (manual) Slight Macrocytosis (manual) Slight PT 12.7 H INR 1.2 APTT 29 Sodium 136 Potassium 4.0 Chloride 101 Carbon Dioxide 26 Anion Gap 12 BUN 55 H Creatinine 2.7 H Est GFR ( Amer) 21 Est GFR (Non-Af Amer) 17 Random Glucose 152 H Calcium 7.8 L Blood Type Antibody Screen 05/27/18 06:43 WBC RBC Hgb Hct MCV MCH MCHC RDW Plt Count MPV Neut % (Auto) Lymph % (Auto) [place] % (Auto) Eos % (Auto) Baso % (Auto) Neut # (Auto) Lymph # (Auto) [place] # (Auto) Eos # (Auto) Baso # (Auto) Neutrophils % (Manual) Band Neutrophils % Lymphocytes % (Manual) Monocytes % (Manual) Eosinophils % (Manual) Nucleated RBC % Platelet Estimate Large Platelets Hypochromasia (manual) Poikilocytosis (manual Anisocytosis (manual) Macrocytosis (manual) PT INR APTT Sodium Potassium Chloride Carbon Dioxide Anion Gap BUN Creatinine Est GFR ( Amer) Est GFR (Non-Af Amer) Random Glucose Calcium Blood Type A POSITIVE Antibody Screen Negative Attending/Attestation - Attestation I have personally seen and examined this patient.: Yes I have fully participated in the care of the patient.: Yes I have reviewed all pertinent clinical information: Yes Notes (Text): 05/27/18 17:30 Pt was seen and examined at bedside Agree with above note and assessment Pt with VDRF Pt is intubated and sedated Labs and Radiology reviewed Ass: VDRF Plan : Tracheostomy on friday if unable to extubate c.w current mx Plan d.w primary team in detail Risk and benefit explained in detail.
--- NOTE | 2018-05-23 15:58 | RAD ---
Date of service: 05/23/2018 HISTORY: intubated COMPARISON: Comparison is made with previous study dated 05/22/2018 TECHNIQUE: 1 view obtained. FINDINGS: LUNGS: Interval mild improvement in the lungs noted since the previous exam. The ET tube is seen at appropriate position. PLEURA: No significant pleural effusion identified, no pneumothorax apparent. CARDIOVASCULAR: Small foci of atherosclerotic calcification noted. The cardiac silhouette is enlarged. The pulmonary vascular congestion is noted. OSSEOUS STRUCTURES: No significant abnormalities. VISUALIZED UPPER ABDOMEN: NG tube seen extending to the abdomen. OTHER FINDINGS: None. IMPRESSION: Interval improvement in the lungs noted since the previous exam.
--- NOTE | 2018-05-23 16:12 | CP.PCM.PN ---
Subjective - Date & Time of Evaluation Date of Evaluation: 05/23/18 Time of Evaluation: 16:11 - Subjective Subjective: Nephrology Follow up Note HPI: 72-year-old female with a history of CHF, CAD, hypertension, hyperlipidemia, history of thyroid disease and renal disease, patient admitted to the hospital with a complaining of left lower extremity pain swelling of one day duration along with fever, followed by code sepsis, hypotension leading to resp distress and current intubation. Hx is obtained from charts. currrently intubated on pressors unknown baseline kidney disease, cr is now 3.1 UOP 10-15 cc per hour. on iv fluids and pressors Past medical history: Had a history of congestive heart failure, coronary artery disease, diabetes, hypertension, hypothyroidism, renal insufficiency. Patient has allergic to penicillin Surgical history include coronary artery bypass grafting x2 Social history: No smoking or drinking history noted Family history significant for diabetes and heart disease Medications at this time not available. 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 On ventilator. Chest left air entry reduced Heart sounds are regular Abdomen soft nontender. edema ++ feets better in terms of edema awake calm Left lower extremity erythema, blisters, and swelling noted Assesment: stable oligoanuric ARRON likely ATN/septic shock with cellulitis and ? 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 isolated UF today. to plan for permacath placement once pt afebrile. maintain hemodynamics stable. Avoid hypotension. Patient not on ACEI/ARB due to recent ARRON Monitor Input/Output, daily weights and renal function with basic metabolic panel c/w Iron, MVI. PRBC as needed. epogen ordered supplement Vit D dose vanco by level. supplement lytes as needed Dose meds/antibiotics for reduced GFR. Avoid fleets enema/magnesium based laxatives. Avoid nephrotoxins/NSAIDs/ iodinated contrast (unless needed emergently) Glycemic control Further work up/management as per primary team Thanks for allowing me to participate in care of your patient. Will follow patient with you. Please call if any Qs. had d/w team and family Dr Edin Castro Office: [phone] Objective - Vital Signs/Intake and Output Vital Signs (last 24 hours): Temp Pulse Resp BP Pulse Ox 99.2 F 101 H 14 131/70 100 05/23/18 14:05 05/23/18 15:17 05/23/18 15:17 05/23/18 15:45 05/23/18 15:17 Intake and Output: 05/23/18 05/23/18 06:59 18:59 Intake Total 860 670 Balance 860 670 - Medications Medications: Current Medications Acetaminophen (Tylenol 650mg/20.3ml Solution Ud) 650 mg PO Q6 PRN PRN Reason: Fever >100.4 F or Pain Last Admin: 05/23/18 15:30 Dose: 650 mg Albuterol/Ipratropium (Duoneb 3 Mg/0.5 Mg (3 Ml) Ud) 3 ml INH RQ6 [facility] Last Admin: 05/23/18 13:23 Dose: 3 ml Dextrose (Dextrose 50% Inj) 0 ml IV STAT PRN; Protocol PRN Reason: Hypoglycemia Protocol Last Admin: 05/18/18 18:17 Dose: 50 ml Dextrose (Glutose 15) 0 gm PO ONCE PRN; Protocol PRN Reason: Hypoglycemia Protocol Epoetin Anthony (Procrit) 10,000 unit IV MWF [facility] Last Admin: 05/20/18 15:23 Dose: 10,000 unit Ergocalciferol (Drisdol 50,000 Intl Units Cap) 1 cap PO Q7D [facility] Last Admin: 05/18/18 13:24 Dose: 1 cap Ferrous Gluconate (Fergon) 324 mg PO TID [facility] Last Admin: 05/23/18 13:47 Dose: 324 mg Glucagon (Glucagen Diagnostic Kit) 0 mg IM STAT PRN; Protocol PRN Reason: Hypoglycemia Protocol Heparin Sodium (Porcine) (Heparin) 5,000 units SC Q12H [facility] Last Admin: 05/19/18 05:17 Dose: 5,000 units Aztreonam 1 gm/ Sodium (Chloride) 100 mls @ 100 mls/hr IVPB Q12H [facility]; Protocol Last Admin: 05/23/18 08:00 Dose: 100 mls/hr Clindamycin Phosphate 600 mg/ (Sodium Chloride) 54 mls @ 100 mls/hr IVPB Q8H [facility]; Protocol Last Admin: 05/23/18 13:47 Dose: 100 mls/hr Vancomycin/Sodium Chloride (Vancomycin 1 Gm/Ns 200 Ml) 1 gm in 200 mls @ 133.333 mls/hr IVPB MWF [facility]; Protocol Stop: 05/25/18 09:01 Last Admin: 05/20/18 09:30 Dose: Not Given Micafungin Sodium 100 mg/ (Sodium Chloride) 100 mls @ 100 mls/hr IV Q24H [facility]; Protocol Last Admin: 05/22/18 17:57 Dose: 100 mls/hr Dobutamine HCl/Dextrose (Dobutamine/Dextrose 5% 500mg/250ml) 500 mg in 250 mls @ 5.43 mls/hr IV .Q24H [facility]; Protocol Last Titration: 05/22/18 01:30 Dose: 0 mcg/kg/min, 0 mls/hr Moxifloxacin HCl (Avelox Iv 400mg/250ml Ns) 400 mg in 250 mls @ 167 mls/hr IVPB Q24H [facility]; Protocol Last Admin: 05/22/18 13:54 Dose: 167 mls/hr Dopamine HCl/Dextrose (Dopamine 400mg/250ml D5w) 400 mg in 250 mls @ 5.503 mls/hr IV .Q24H [facility]; Protocol PRN Reason: TITRATE PER MD ORDER Insulin Aspart (Novolog) 0 unit SC Q6 [facility]; Protocol Last Admin: 05/23/18 12:36 Dose: 8 units Methylprednisolone (Solu-Medrol) 40 mg IVP Q8H [facility] Last Admin: 05/23/18 13:46 Dose: 40 mg Montelukast Sodium (Singulair) 10 mg PO HS [facility] Last Admin: 05/22/18 22:27 Dose: 10 mg Pantoprazole Sodium (Protonix Inj) 40 mg IVP DAILY [facility] Last Admin: 05/23/18 09:18 Dose: 40 mg Vitamin B Complex/Vit C/Folic Acid (Nephro-Pancho) 1 tab PO 0800 [facility] Last Admin: 05/23/18 08:15 Dose: 1 tab - Labs Labs: 04/06/19 06:54 05/22/18 06:04 PT 19.8 SECONDS (9.7-12.2) H 05/17/18 06:09 INR 1.8 05/17/18 06:09 APTT 40 SECONDS (21-34) H D 05/17/18 06:09
[2018-05-23] MEDS: Moxifloxacin IV 400mg/250ml NS 400 MG/250 ML BAG IVPB SCH (16:47)
[2018-05-23] MEDS: Micafungin 100 MG in Sodium Chloride 0.9% 100 ML IV SCH (17:38)
--- NOTE | 2018-05-23 18:25 | CP.CCUPN ---
CCU Subjective - Physician Review Events Since Last Encounter (Free Text): 05/23/18 17:18 alert, follows commands. CCU Objective - Vital Signs / Intake & Output Vital Signs (Last 4 hours): Vital Signs Temp Pulse Resp BP BP Pulse Ox 05/23/18 16:45 120/56 L 05/23/18 16:17 96 H 15 131/56 L 100 05/23/18 16:15 131/56 L 05/23/18 16:02 97 H 16 130/64 100 05/23/18 16:00 96 H 15 100 05/23/18 15:47 104 H 19 131/70 100 05/23/18 15:45 131/70 05/23/18 15:32 98 H 15 125/62 100 05/23/18 15:17 101 H 14 130/69 100 05/23/18 15:15 130/69 05/23/18 15:02 108 H 14 125/63 100 05/23/18 15:00 105 H 14 125/63 99 05/23/18 14:47 112 H 15 134/60 100 05/23/18 14:45 134/60 05/23/18 14:32 106 H 14 128/57 L 100 05/23/18 14:30 128/57 L 05/23/18 14:17 104 H 16 139/62 100 05/23/18 14:15 139/62 05/23/18 14:08 109 H 16 143/68 100 05/23/18 14:05 99.2 F 104 H 16 143/68 05/23/18 14:00 109 H 20 100 05/23/18 13:50 113 H 15 131/68 100 Intake and Output (Last 8hrs): Intake & Output 05/23/18 05/23/18 05/23/18 06:59 14:59 22:59 Intake Total 440 670 130 Balance 440 670 130 Weight 161 lb 12.3 oz Intake: Intake, IV Amount 150 Right Internal Jugular 150 Trialysis Catheter Tube Feeding 320 320 80 Other 120 200 50 Other: # Bowel Movements 0 1 - Physical Exam Head: Positive for: Atraumatic, Normocephalic Pupils: Positive for: PERRL Extroacular Muscles: Positive for: EOMI Conjunctiva: Positive for: Normal Ears: Positive for: Normal Mouth: Positive for: Moist Mucous Membranes Nose (External): Positive for: Atraumatic Respiratory/Chest: Positive for: Clear to Auscultation Cardiovascular: Positive for: Regular Rate and Rhythm Abdomen: Positive for: Normal Bowel Sounds. Negative for: Tenderness, Distention Upper Extremity: Positive for: Edema Lower Extremity: Positive for: Edema, Other (skin blisters noted on L anterior calf) Neurological: Positive for: Other (intubated) Psychiatric: Positive for: Other (intubated). Negative for: Alert, Oriented x 3 - Medications Active Medications: Active Medications Generic Name Dose Route Start Last Admin Trade Name Freq PRN Reason Stop Dose Admin Acetaminophen 650 mg 05/18/18 00:30 05/23/18 15:30 Tylenol 650mg/20.3ml Solution Ud PO 650 mg Q6 PRN Administration Fever >100.4 F or Pain Albuterol/Ipratropium 3 ml 05/21/18 14:00 05/23/18 13:23 Duoneb 3 Mg/0.5 Mg (3 Ml) Ud INH 3 ml RQ6 [facility] Administration Dextrose 0 ml 05/16/18 18:32 05/18/18 18:17 Dextrose 50% Inj IV 50 ml STAT PRN Administration Hypoglycemia Protocol Protocol Dextrose 0 gm 05/16/18 18:32 Glutose 15 PO ONCE PRN Hypoglycemia Protocol Protocol Epoetin Anthony 10,000 unit 05/20/18 15:30 05/20/18 15:23 Procrit IV 10,000 unit MWF [facility] Administration Ergocalciferol 1 cap 05/18/18 10:45 05/18/18 13:24 Drisdol 50,000 Intl Units Cap PO 1 cap Q7D [facility] Administration Ferrous Gluconate 324 mg 05/18/18 14:00 05/23/18 13:47 Fergon PO 324 mg TID [facility] Administration Glucagon 0 mg 05/16/18 18:32 Glucagen Diagnostic Kit IM STAT PRN Hypoglycemia Protocol Protocol Heparin Sodium (Porcine) 5,000 units 05/16/18 17:45 05/19/18 05:17 Heparin SC 5,000 units Q12H [facility] Administration Aztreonam 1 gm/ Sodium 100 mls @ 100 mls/hr 05/17/18 20:00 05/23/18 08:00 Chloride IVPB 100 mls/hr Q12H [facility] Administration Protocol Clindamycin Phosphate 600 mg/ 54 mls @ 100 mls/hr 05/17/18 22:00 05/23/18 13:47 Sodium Chloride IVPB 100 mls/hr Q8H [facility] Administration Protocol Vancomycin/Sodium Chloride 1 gm in 200 mls @ 133.333 mls/hr 05/20/18 09:00 05/20/18 09:30 Vancomycin 1 Gm/Ns 200 Ml IVPB 05/25/18 09:01 Not Given MWF [facility] Protocol Micafungin Sodium 100 mg/ 100 mls @ 100 mls/hr 05/20/18 18:00 05/22/18 17:57 Sodium Chloride IV 100 mls/hr Q24H [facility] Administration Protocol Dobutamine HCl/Dextrose 500 mg in 250 mls @ 5.43 mls/hr 05/21/18 09:00 05/22/18 01:30 Dobutamine/Dextrose 5% 500mg/250ml IV 0 mcg/kg/min .Q24H [facility] 0 mls/hr Titration Protocol 2.5 MCG/KG/MIN Moxifloxacin HCl 400 mg in 250 mls @ 167 mls/hr 05/22/18 14:00 05/23/18 16:47 Avelox Iv 400mg/250ml Ns IVPB 167 mls/hr Q24H [facility] Administration Protocol Dopamine HCl/Dextrose 400 mg in 250 mls @ 5.503 mls/hr 05/23/18 13:29 Dopamine 400mg/250ml D5w IV .Q24H PRN TITRATE PER MD ORDER Protocol 2 MCG/KG/MIN Insulin Aspart 0 unit 05/18/18 00:00 05/23/18 12:36 Novolog SC 8 units Q6 [facility] Administration Protocol Methylprednisolone 40 mg 05/21/18 22:00 05/23/18 13:46 Solu-Medrol IVP 40 mg Q8H [facility] Administration Montelukast Sodium 10 mg 05/21/18 22:00 05/22/18 22:27 Singulair PO 10 mg HS [facility] Administration Pantoprazole Sodium 40 mg 05/17/18 10:00 05/23/18 09:18 Protonix Inj IVP 40 mg DAILY [facility] Administration Vitamin B Complex/Vit C/Folic Acid 1 tab 05/19/18 08:00 05/23/18 08:15 Nephro-Pancho PO 1 tab 0800 [facility] Administration - Patient Studies Lab Studies: Microbiology Studies 05/19/18 15:55 Blood Culture - Preliminary Blood NO GROWTH AFTER 4 DAYS 05/19/18 16:05 Blood Culture - Preliminary Blood NO GROWTH AFTER 4 DAYS 05/23/18 08:54 Gram Stain - Final Sputum Lab Studies 05/23/18 05/23/18 05/23/18 Range/Units 06:54 06:31 05:15 WBC 20.2 H (4.8-10.8) K/uL RBC 2.51 L (3.80-5.20) Mil/uL Hgb 8.3 L (11.0-16.0) g/dL Hct 25.5 L (34.0-47.0) % MCV 101.5 H (81.0-99.0) fL MCH 33.1 H (27.0-31.0) pg MCHC 32.6 L (33.0-37.0) g/dL RDW 16.1 H (11.5-14.5) % Plt Count 102 L (130-400) K/uL MPV 11.1 (7.2-11.7) fL Neut % (Auto) 96.1 H (50.0-75.0) % Lymph % (Auto) 1.3 L (20.0-40.0) % [place] % (Auto) 2.4 (0.0-10.0) % Eos % (Auto) 0.1 (0.0-4.0) % Baso % (Auto) 0.1 (0.0-2.0) % Neut # (Auto) 19.5 H (1.8-7.0) K/uL Lymph # (Auto) 0.3 L (1.0-4.3) K/uL [place] # (Auto) 0.5 (0.0-0.8) K/uL Eos # (Auto) 0.0 (0.0-0.7) K/uL Baso # (Auto) 0.0 (0.0-0.2) K/uL Neutrophils % (Manual) 94 H (50-75) % Lymphocytes % (Manual) 2 L (20-40) % Monocytes % (Manual) 4 (0-10) % Nucleated RBC % 1 H (0-0) % Toxic Granulation Present Platelet Estimate Slightly decreased L (NORMAL) Large Platelets Present Polychromasia Slight Hypochromasia (manual) Slight Poikilocytosis (manual Slight Anisocytosis (manual) Slight Macrocytosis (manual) Slight Ovalocytes Slight Puncture Site Rr pCO2 39 (35-45) mm/Hg pO2 124 H (80-100) mm/Hg HCO3 28.4 H (21-28) mmol/L ABG pH 7.47 H (7.35-7.45) ABG Total CO2 29.6 H (22-28) mmol/L ABG O2 Saturation 97.1 (95-98) % ABG Base Excess 4.4 H (-2.0-3.0) mmol/L ABG Hemoglobin 8.3 L (11.7-17.4) g/dL ABG Carboxyhemoglobin 0.4 L (0.5-1.5) % POC ABG HHb (Measured) 2.9 (0.0-5.0) % ABG Methemoglobin 0.4 (0.0-3.0) % Nicolás Test Pos A-a O2 Difference 112.0 mm/Hg Respiratory Index 0.9 Hgb O2 Saturation 96.4 (95.0-98.0) % Vent Mode Prvc Mechanical Rate 15 FiO2 40.0 % Tidal Volume 440 PEEP 5 Phosphorus 3.2 (2.5-4.5) mg/dL Magnesium 2.1 (1.6-2.3) mg/dL Laboratory Results - last 24 hr 05/23/18 05/23/18 05/23/18 05:15 06:31 06:54 WBC 20.2 H RBC 2.51 L Hgb 8.3 L Hct 25.5 L MCV 101.5 H MCH 33.1 H MCHC 32.6 L RDW 16.1 H Plt Count 102 L MPV 11.1 Neut % (Auto) 96.1 H Lymph % (Auto) 1.3 L [place] % (Auto) 2.4 Eos % (Auto) 0.1 Baso % (Auto) 0.1 Neut # (Auto) 19.5 H Lymph # (Auto) 0.3 L [place] # (Auto) 0.5 Eos # (Auto) 0.0 Baso # (Auto) 0.0 Neutrophils % (Manual) 94 H Lymphocytes % (Manual) 2 L Monocytes % (Manual) 4 Nucleated RBC % 1 H Toxic Granulation Present Platelet Estimate Slightly decreased L Large Platelets Present Polychromasia Slight Hypochromasia (manual) Slight Poikilocytosis (manual Slight Anisocytosis (manual) Slight Macrocytosis (manual) Slight Ovalocytes Slight Puncture Site Rr pCO2 39 pO2 124 H HCO3 28.4 H ABG pH 7.47 H ABG Total CO2 29.6 H ABG O2 Saturation 97.1 ABG Base Excess 4.4 H ABG Hemoglobin 8.3 L ABG Carboxyhemoglobin 0.4 L POC ABG HHb (Measured) 2.9 ABG Methemoglobin 0.4 Nicolás Test Pos A-a O2 Difference 112.0 Respiratory Index 0.9 Hgb O2 Saturation 96.4 Vent Mode Prvc Mechanical Rate 15 FiO2 40.0 Tidal Volume 440 PEEP 5 Phosphorus 3.2 Magnesium 2.1 Radiology Impressions: Radiology Impressions Chest X-Ray 05/23/18 08:00 IMPRESSION: Interval improvement in the lungs noted since the previous exam. Fingerstick Blood Sugar Results: 335 Review of Systems - Review of Systems Systems not reviewed;Unavailable: Intubated Assessment/Plan (1) Cellulitis of left lower extremity Assessment and plan: 72yo F. PMHx CHF, CAD, HTN, hyperlipidemia, hypothyroidism, DM type 2, CKD. p/w cellulitis that has progressed to septic shock, with streptococcal bacteremia and ATN. Started on dialysis (05/17). Extubated (05/20) and reintubated secondary to bradycardia. Neuro: off all sedation for days now. She is alert and follows commands. Pulm: acute respiratory failure from aspiration of bilious vomitus. intubated on vent, PRVC. CV: hemodynamically stable. Will start Dopamine on next extubation attempt. Patient became bradycardic on last extubation attempt, I believe this is a stress induced ischemia induced arrythmia, she will need a cath at a later date. Cardio - Dr. Ramires Hem: anemia of chronic disease, Thrombocytopenia from sepsis and ESRD. Renal: anuric ATN. Continue dialysis. Will need permacath once blood culture negative (05/19) and afebrile x 24h at least. Endo: DM type 2, SISS for coverage GI: NPO, starting Glucerna. ID: gram positive bacteremia from LLE cellulitis, Group C Strep, culture negative from (05/19). Continue Aztreonam and Clindamycin. DVT proph - heparin sq GI proph - protonix wolf for strict I/O's during acute illness Code status - full code RIJ trialysis (05/16) Critical Care Time spent 35 minutes Multi-disciplinary rounds were performed with house staff, nursing, speech therapy, respiratory therapy, pharmacy and nutrition with integrated input from the primary team/attending and other consulting services. The documented time is cumulative and includes review of patient data/exams/labs/chart review and examination of the patient on rounds and throughout the day; time is exclusive of any procedures or teaching time. Current Visit: Yes Status: Acute
[2018-05-24] MEDS: (Novolog) Insulin Aspart, Recombinant 100 u/ml 10 ml vial SC SCH ×4 (06:00→18:26)
[2018-05-24 06:21] LABS: ABG ALLEN TEST POS; ARTERIAL BLOOD GAS HEMOGLOBIN 8.1 g/dL (11.7-17.4); ARTERIAL BLOOD GAS O2 SAT 97.5 % (95-98); ARTERIAL BLOOD GAS PCO2 40 mm/Hg (35-45); ARTERIAL BLOOD GAS PH 7.42 (7.35-7.45); ARTERIAL BLOOD GAS PO2 139 mm/Hg (80-100); ARTERIAL BLOOD GAS TCO2 27.1 mmol/L (22-28)
[2018-05-24 07:09] LABS: BASO # 0.1 K/uL (0.0-0.2); BASO % 0.3 % (0.0-2.0); HEMOGLOBIN 8.6 g/dL (11.0-16.0); LYMPH # 0.5 K/uL (1.0-4.3); LYMPH % 2.9 % (20.0-40.0); MEAN CELL VOLUME 101.6 fL (81.0-99.0); MEAN CORPUSCULAR HEMOGLOBIN 32.7 pg (27.0-31.0); MEAN CORPUSCULAR HGB CONC 32.2 g/dL (33.0-37.0); MEAN PLATELET VOLUME 11.1 fL (7.2-11.7); MONO # 1.5 K/uL (0.0-0.8); MONO % 8.1 % (0.0-10.0); NEUT # 16.4 K/uL (1.8-7.0); NEUT % 88.7 % (50.0-75.0); NRBC % 0.4 % (0.0-2.0); PLATELET COUNT 108 K/uL (130-400); RBC 2.63 Mil/uL (3.80-5.20); WHITE BLOOD COUNT 18.5 K/uL (4.8-10.8)
[2018-05-24 07:49] LABS: ALBUMIN 2.6 g/dL (3.5-5.0); CALCIUM 8.2 mg/dl (8.6-10.4)
[2018-05-24] MEDS: Albuterol-Ipratrop 3 mg / 0.5 (3 ml) UD INH SCH ×3 (07:50→19:53)
[2018-05-24 08:27] LABS: LYMPHOCYTE 3 % (20-40); MONOCYTE 6 % (0-10); NEUTROPHIL 91 % (50-75); TOTAL CELLS COUNTED 100
[2018-05-24 08:28] LABS: PLATELET ESTIMATE SLIGHTLY DECREASED (NORMAL)
[2018-05-24 08:29] LABS: HYPOCHROMIC SLIGHT; POLYCHROMIC SLIGHT
[2018-05-24 08:30] LABS: ANISOCYTOSIS MODERATE
[2018-05-24] MEDS: Aztreonam 1 GM in Sodium Chloride 0.9% 100 ML IVPB SCH ×2 (08:59→20:50)
[2018-05-24] MEDS: Multivitamin Vitamin B Complex (Nephro-Vite) Tab PO SCH (09:50)
[2018-05-24] MEDS: Potassium Chloride 20 mEq/15 ml LIQ UD NG SCH ×2 (10:48→14:34)
--- NOTE | 2018-05-24 11:14 | CP.PCM.PN ---
Subjective - Date & Time of Evaluation Date of Evaluation: 05/24/18 Time of Evaluation: 11:11 - Subjective Subjective: Podiatry Progress Note for Dr. Zhu 72F seen and evaluated at bedside for b/l leg swelling with drained serous liquid filled bullae of left leg. Patient is still intubated at this time. Per nursing, no acute overnight events. Patient appears more awake and alert today Objective - Vital Signs/Intake and Output Vital Signs (last 24 hours): Temp Pulse Resp BP Pulse Ox 99.5 F 94 H 10 L 131/63 99 05/24/18 08:00 05/24/18 10:00 05/24/18 10:00 05/24/18 09:56 05/24/18 10:00 Intake and Output: 05/24/18 05/24/18 06:59 18:59 Intake Total 780 260 Balance 780 260 - Medications Medications: Current Medications Acetaminophen (Tylenol 650mg/20.3ml Solution Ud) 650 mg PO Q6 PRN PRN Reason: Fever >100.4 F or Pain Last Admin: 05/23/18 22:01 Dose: 650 mg Albuterol/Ipratropium (Duoneb 3 Mg/0.5 Mg (3 Ml) Ud) 3 ml INH RQ6 [facility] Last Admin: 05/24/18 07:50 Dose: 3 ml Dextrose (Dextrose 50% Inj) 0 ml IV STAT PRN; Protocol PRN Reason: Hypoglycemia Protocol Last Admin: 05/18/18 18:17 Dose: 50 ml Dextrose (Glutose 15) 0 gm PO ONCE PRN; Protocol PRN Reason: Hypoglycemia Protocol Epoetin Anthony (Procrit) 10,000 unit IV MWF [facility] Last Admin: 05/22/18 20:00 Dose: 10,000 unit Ergocalciferol (Drisdol 50,000 Intl Units Cap) 1 cap PO Q7D [facility] Last Admin: 05/18/18 13:24 Dose: 1 cap Ferrous Gluconate (Fergon) 324 mg PO TID [facility] Last Admin: 05/24/18 09:50 Dose: 324 mg Glucagon (Glucagen Diagnostic Kit) 0 mg IM STAT PRN; Protocol PRN Reason: Hypoglycemia Protocol Aztreonam 1 gm/ Sodium (Chloride) 100 mls @ 100 mls/hr IVPB Q12H [facility]; Protocol Last Admin: 05/24/18 08:59 Dose: 100 mls/hr Clindamycin Phosphate 600 mg/ (Sodium Chloride) 54 mls @ 100 mls/hr IVPB Q8H [facility]; Protocol Last Admin: 05/24/18 05:25 Dose: 100 mls/hr Vancomycin/Sodium Chloride (Vancomycin 1 Gm/Ns 200 Ml) 1 gm in 200 mls @ 133.333 mls/hr IVPB MWF [facility]; Protocol Stop: 05/25/18 09:01 Last Admin: 05/20/18 09:30 Dose: Not Given Dopamine HCl/Dextrose (Dopamine 400mg/250ml D5w) 400 mg in 250 mls @ 5.503 mls/hr IV .Q24H PRN; Protocol PRN Reason: TITRATE PER MD ORDER Insulin Aspart (Novolog) 0 unit SC Q6 [facility]; Protocol Last Admin: 05/24/18 06:00 Dose: 6 units Montelukast Sodium (Singulair) 10 mg PO HS [facility] Last Admin: 05/23/18 22:01 Dose: 10 mg Pantoprazole Sodium (Protonix Inj) 40 mg IVP DAILY [facility] Last Admin: 05/24/18 09:49 Dose: 40 mg Potassium Chloride (Potassium Chloride Oral Soln) 20 meq NG Q4H [facility] Stop: 05/24/18 14:31 Last Admin: 05/24/18 10:48 Dose: 20 meq Vitamin B Complex/Vit C/Folic Acid (Nephro-Pancho) 1 tab PO 0800 [facility] Last Admin: 05/24/18 09:50 Dose: 1 tab - Labs Labs: 05/24/18 07:04 05/24/18 07:04 PT 19.8 SECONDS (9.7-12.2) H 05/17/18 06:09 INR 1.8 05/17/18 06:09 APTT 40 SECONDS (21-34) H D 05/17/18 06:09 - Constitutional Appears: Non-toxic, No Acute Distress - Extremities Exam Additional comments: LLE focused exam: Vasc: DP/PT pulses non-palpable secondary to 2+ pitting edema, CFT < 3 seconds to all digits, skin temperature warm to warm from proximal to distal WNL, no erythema present. Diffuse 2+ pitting edema noted to b/l LE which continues to improve Neuro: Unable to assess secondary to patient mental state and intubation Derm: Three lysed bullae noted to lateral aspect of leg and one lysed bullae noted to medial aspect of leg. Wound bases are all granular in nature. No erythema noted at this time. No clinical signs of infection. No new bullae noted today MSK: No gross deformities noted. Unable to assess ROM or MMT at this time - Neurological Exam Neurological Exam: Alert, Awake - Psychiatric Exam Psychiatric exam: Normal Affect, Normal Mood Assessment and Plan - Assessment and Plan (Free Text) Assessment: 72F seen and evaluated at bedside for b/l leg swelling with drained serous liquid filled bullae of left leg Plan: Patient seen and evaluated Plan discussed with Dr. Zhu WBC 18.5 Continue abx per ID Wound culture from bullae: No growth after 24 hours Blood cx: Group C Strep Urine cx: E. coli Foot, ankle and tib/fib xrays show no evidence of soft tissue emphysema. Evidence of subcutaneous edema and cellulitis appreciated Bullae sites dressed with DSD, ABD No plan for surgical intervention at this time Multipodus boots reapplied Podiatry will continue to follow while patient in house
--- NOTE | 2018-05-24 11:47 | RAD ---
Date of service: 05/24/2018 HISTORY: intubated COMPARISON: Comparison is made with 05/23/2018 TECHNIQUE: 1 view obtained. FINDINGS: LUNGS: Interval mild improvement in the lungs noted since the previous exam. The ET tube is again seen at appropriate position. PLEURA: No significant pleural effusion identified, no pneumothorax apparent. CARDIOVASCULAR: No aortic atherosclerotic calcification present. The cardiac silhouette is enlarged. Post sternotomy changes are again noted. Interval improvement in the pulmonary vascular congestion noted since the previous exam. OSSEOUS STRUCTURES: No significant abnormalities. VISUALIZED UPPER ABDOMEN: Normal. OTHER FINDINGS: None. IMPRESSION: Interval improvement in the pulmonary vascular congestion since the previous exam. Otherwise no significant changes.
[2018-05-24] MEDS: DOPamine 400mg/250ml D5W 400 MG/250 ML BAG IV PRN (11:52)
--- NOTE | 2018-05-24 11:55 | CP.PCM.PN ---
Subjective - Date & Time of Evaluation Date of Evaluation: 05/24/18 Time of Evaluation: 11:53 - Subjective Subjective: Nephrology Follow up Note HPI: 72-year-old female with a history of CHF, CAD, hypertension, hyperlipidemia, history of thyroid disease and renal disease, patient admitted to the hospital with a complaining of left lower extremity pain swelling of one day duration along with fever, followed by code sepsis, hypotension leading to resp distress and current intubation. Hx is obtained from charts. currrently intubated on pressors unknown baseline kidney disease, cr is now 3.1 UOP 10-15 cc per hour. on iv fluids and pressors Past medical history: Had a history of congestive heart failure, coronary artery disease, diabetes, hypertension, hypothyroidism, renal insufficiency. Patient has allergic to penicillin Surgical history include coronary artery bypass grafting x2 Social history: No smoking or drinking history noted Family history significant for diabetes and heart disease Medications at this time not available. 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 On ventilator. Chest B/L air entry improved Heart sounds are regular s1s2 normal Abdomen soft nontender. edema ++ feets better in terms of edema awake calm Left lower extremity erythema, blisters, and swelling noted Assesment: stable oligoanuric ARRON likely ATN/septic shock with cellulitis and ? 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 to plan for permacath placement once pt afebrile. maintain hemodynamics stable. Avoid hypotension. Patient not on ACEI/ARB due to recent ARRON Monitor Input/Output, daily weights and renal function with basic metabolic panel c/w Iron, MVI. PRBC as needed. epogen ordered supplement Vit D dose vanco by level. supplement lytes as needed. ordered for KCL 40 meq today Dose meds/antibiotics for reduced GFR. Avoid fleets enema/magnesium based laxatives. Avoid nephrotoxins/NSAIDs/ iodinated contrast (unless needed emergently) Glycemic control Further work up/management as per primary team Thanks for allowing me to participate in care of your patient. Will follow patient with you. Please call if any Qs. had d/w team and family Dr Edin Castro Office: [phone] Objective - Vital Signs/Intake and Output Vital Signs (last 24 hours): Temp Pulse Resp BP Pulse Ox 99.5 F 94 H 21 136/63 100 05/24/18 08:00 05/24/18 11:00 05/24/18 11:00 05/24/18 11:52 05/24/18 11:00 Intake and Output: 05/24/18 05/24/18 06:59 18:59 Intake Total 780 260 Output Total 100 Balance 780 160 - Medications Medications: Current Medications Acetaminophen (Tylenol 650mg/20.3ml Solution Ud) 650 mg PO Q6 PRN PRN Reason: Fever >100.4 F or Pain Last Admin: 05/23/18 22:01 Dose: 650 mg Albuterol/Ipratropium (Duoneb 3 Mg/0.5 Mg (3 Ml) Ud) 3 ml INH RQ6 [facility] Last Admin: 05/24/18 07:50 Dose: 3 ml Dextrose (Dextrose 50% Inj) 0 ml IV STAT PRN; Protocol PRN Reason: Hypoglycemia Protocol Last Admin: 05/18/18 18:17 Dose: 50 ml Dextrose (Glutose 15) 0 gm PO ONCE PRN; Protocol PRN Reason: Hypoglycemia Protocol Epoetin Anthony (Procrit) 10,000 unit IV MWF [facility] Last Admin: 05/22/18 20:00 Dose: 10,000 unit Ergocalciferol (Drisdol 50,000 Intl Units Cap) 1 cap PO Q7D [facility] Last Admin: 05/18/18 13:24 Dose: 1 cap Ferrous Gluconate (Fergon) 324 mg PO TID [facility]ENCE Last Admin: 05/24/18 09:50 Dose: 324 mg Glucagon (Glucagen Diagnostic Kit) 0 mg IM STAT PRN; Protocol PRN Reason: Hypoglycemia Protocol Aztreonam 1 gm/ Sodium (Chloride) 100 mls @ 100 mls/hr IVPB Q12H [facility]ENCE; Protocol Last Admin: 05/24/18 08:59 Dose: 100 mls/hr Clindamycin Phosphate 600 mg/ (Sodium Chloride) 54 mls @ 100 mls/hr IVPB Q8H [facility]; Protocol Last Admin: 05/24/18 05:25 Dose: 100 mls/hr Vancomycin/Sodium Chloride (Vancomycin 1 Gm/Ns 200 Ml) 1 gm in 200 mls @ 133.333 mls/hr IVPB MWF [facility]; Protocol Stop: 05/25/18 09:01 Last Admin: 05/20/18 09:30 Dose: Not Given Dopamine HCl/Dextrose (Dopamine 400mg/250ml D5w) 400 mg in 250 mls @ 5.503 mls/hr IV .Q24H PRN; Protocol PRN Reason: TITRATE PER MD ORDER Last Admin: 05/24/18 11:52 Dose: 2 mcg/kg/min, 5.503 mls/hr Insulin Aspart (Novolog) 0 unit SC Q6 [facility]ENCE; Protocol Last Admin: 05/24/18 06:00 Dose: 6 units Montelukast Sodium (Singulair) 10 mg PO HS [facility] Last Admin: 05/23/18 22:01 Dose: 10 mg Pantoprazole Sodium (Protonix Inj) 40 mg IVP DAILY [facility] Last Admin: 05/24/18 09:49 Dose: 40 mg Potassium Chloride (Potassium Chloride Oral Soln) 20 meq NG Q4H [facility] Stop: 05/24/18 14:31 Last Admin: 05/24/18 10:48 Dose: 20 meq Vitamin B Complex/Vit C/Folic Acid (Nephro-Pancho) 1 tab PO 0800 [facility] Last Admin: 05/24/18 09:50 Dose: 1 tab - Labs Labs: 05/24/18 07:04 05/24/18 07:04 PT 19.8 SECONDS (9.7-12.2) H 05/17/18 06:09 INR 1.8 05/17/18 06:09 APTT 40 SECONDS (21-34) H D 05/17/18 06:09
--- NOTE | 2018-05-24 13:34 | CP.CCUPN ---
CCU Subjective - Physician Review Events Since Last Encounter (Free Text): 05/24/18 13:33 alert and oriented today. CCU Objective - Vital Signs / Intake & Output Vital Signs (Last 4 hours): Vital Signs Temp Pulse Resp BP Pulse Ox 05/24/18 12:00 99.2 F 95 H 18 100 05/24/18 11:56 95 H 17 123/51 L 05/24/18 11:52 136/63 05/24/18 11:00 94 H 21 100 05/24/18 10:56 94 H 18 136/63 05/24/18 10:00 94 H 10 L 99 05/24/18 09:56 92 H 16 131/63 95 Intake and Output (Last 8hrs): Intake & Output 05/23/18 05/24/18 05/24/18 22:59 06:59 14:59 Intake Total 870 370 265.5 Output Total 2500 100 Balance -1630 370 165.5 Weight 160 lb 0.113 oz Intake: Intake, IV Amount 350 50 105.5 Right Internal Jugular 350 50 105.5 Trialysis Catheter Tube Feeding 320 320 160 Other 200 Output: Emesis 100 Other 2500 Other: # Bowel Movements 0 0 1 - Physical Exam Head: Positive for: Atraumatic, Normocephalic Pupils: Positive for: PERRL Extroacular Muscles: Positive for: EOMI Conjunctiva: Positive for: Normal Ears: Positive for: Normal Mouth: Positive for: Moist Mucous Membranes Nose (External): Positive for: Atraumatic Respiratory/Chest: Positive for: Clear to Auscultation Cardiovascular: Positive for: Regular Rate and Rhythm Abdomen: Positive for: Normal Bowel Sounds. Negative for: Tenderness, Distention Upper Extremity: Positive for: Edema Lower Extremity: Positive for: Edema, Other (skin blisters noted on L anterior calf) Neurological: Positive for: Other (intubated) Psychiatric: Positive for: Other (intubated). Negative for: Alert, Oriented x 3 - Medications Active Medications: Active Medications Generic Name Dose Route Start Last Admin Trade Name Freq PRN Reason Stop Dose Admin Acetaminophen 650 mg 05/18/18 00:30 05/23/18 22:01 Tylenol 650mg/20.3ml Solution Ud PO 650 mg Q6 PRN Administration Fever >100.4 F or Pain Albuterol/Ipratropium 3 ml 05/21/18 14:00 05/24/18 07:50 Duoneb 3 Mg/0.5 Mg (3 Ml) Ud INH 3 ml RQ6 [facility] Administration Dextrose 0 ml 05/16/18 18:32 05/18/18 18:17 Dextrose 50% Inj IV 50 ml STAT PRN Administration Hypoglycemia Protocol Protocol Dextrose 0 gm 05/16/18 18:32 Glutose 15 PO ONCE PRN Hypoglycemia Protocol Protocol Epoetin Anthony 10,000 unit 05/20/18 15:30 05/22/18 20:00 Procrit IV 10,000 unit MWF [facility] Administration Ergocalciferol 1 cap 05/18/18 10:45 05/18/18 13:24 Drisdol 50,000 Intl Units Cap PO 1 cap Q7D [facility] Administration Ferrous Gluconate 324 mg 05/18/18 14:00 05/24/18 13:16 Fergon PO 324 mg TID [facility] Administration Glucagon 0 mg 05/16/18 18:32 Glucagen Diagnostic Kit IM STAT PRN Hypoglycemia Protocol Protocol Aztreonam 1 gm/ Sodium 100 mls @ 100 mls/hr 05/17/18 20:00 05/24/18 08:59 Chloride IVPB 100 mls/hr Q12H [facility] Administration Protocol Clindamycin Phosphate 600 mg/ 54 mls @ 100 mls/hr 05/17/18 22:00 05/24/18 05:25 Sodium Chloride IVPB 100 mls/hr Q8H [facility] Administration Protocol Vancomycin/Sodium Chloride 1 gm in 200 mls @ 133.333 mls/hr 05/20/18 09:00 05/20/18 09:30 Vancomycin 1 Gm/Ns 200 Ml IVPB 05/25/18 09:01 Not Given [facility] Protocol Dopamine HCl/Dextrose 400 mg in 250 mls @ 5.503 mls/hr 05/23/18 13:29 05/24/18 11:52 Dopamine 400mg/250ml D5w IV 2 mcg/kg/min .Q24H PRN 5.503 mls/hr TITRATE PER MD ORDER Administration Protocol 2 MCG/KG/MIN Insulin Aspart 0 unit 05/18/18 00:00 05/24/18 13:16 Novolog SC 8 units Q6 [facility] Administration Protocol Montelukast Sodium 10 mg 05/21/18 22:00 05/23/18 22:01 Singulair PO 10 mg HS [facility] Administration Pantoprazole Sodium 40 mg 05/17/18 10:00 05/24/18 09:49 Protonix Inj IVP 40 mg DAILY [facility] Administration Potassium Chloride 20 meq 05/24/18 10:30 05/24/18 10:48 Potassium Chloride Oral Soln NG 05/24/18 14:31 20 meq Q4H [facility] Administration Vitamin B Complex/Vit C/Folic Acid 1 tab 05/19/18 08:00 05/24/18 09:50 Nephro-Pancho PO 1 tab 0800 [facility] Administration - Patient Studies Lab Studies: Microbiology Studies 05/20/18 09:04 Gram Stain - Final Leg - Left Wound Culture - Final No Growth 05/19/18 15:55 Blood Culture - Preliminary Blood NO GROWTH AFTER 4 DAYS 05/19/18 16:05 Blood Culture - Preliminary Blood NO GROWTH AFTER 4 DAYS 05/23/18 08:54 Gram Stain - Final Sputum Lab Studies 05/24/18 05/24/18 05/24/18 Range/Units 07:04 07:04 06:00 WBC 18.5 H (4.8-10.8) K/uL RBC 2.63 L (3.80-5.20) Mil/uL Hgb 8.6 L (11.0-16.0) g/dL Hct 26.7 L (34.0-47.0) % MCV 101.6 H (81.0-99.0) fL MCH 32.7 H (27.0-31.0) pg MCHC 32.2 L (33.0-37.0) g/dL RDW 16.0 H (11.5-14.5) % Plt Count 108 L (130-400) K/uL MPV 11.1 (7.2-11.7) fL Neut % (Auto) 88.7 H (50.0-75.0) % Lymph % (Auto) 2.9 L (20.0-40.0) % [place] % (Auto) 8.1 (0.0-10.0) % Eos % (Auto) 0.0 (0.0-4.0) % Baso % (Auto) 0.3 (0.0-2.0) % Neut # (Auto) 16.4 H (1.8-7.0) K/uL Lymph # (Auto) 0.5 L (1.0-4.3) K/uL [place] # (Auto) 1.5 H (0.0-0.8) K/uL Eos # (Auto) 0.0 (0.0-0.7) K/uL Baso # (Auto) 0.1 (0.0-0.2) K/uL Neutrophils % (Manual) 91 H (50-75) % Lymphocytes % (Manual) 3 L (20-40) % Monocytes % (Manual) 6 (0-10) % Platelet Estimate Slightly decreased L (NORMAL) Polychromasia Slight Hypochromasia (manual) Slight Anisocytosis (manual) Moderate Macrocytosis (manual) Slight Puncture Site Rradial pCO2 40 (35-45) mm/Hg pO2 139 H (80-100) mm/Hg HCO3 26.0 (21-28) mmol/L ABG pH 7.42 (7.35-7.45) ABG Total CO2 27.1 (22-28) mmol/L ABG O2 Saturation 97.5 (95-98) % ABG Base Excess 1.3 (-2.0-3.0) mmol/L ABG Hemoglobin 8.1 L (11.7-17.4) g/dL ABG Carboxyhemoglobin 0.2 L (0.5-1.5) % POC ABG HHb (Measured) 2.5 (0.0-5.0) % ABG Methemoglobin 0.2 (0.0-3.0) % Nicolás Test Pos A-a O2 Difference 96.0 mm/Hg Respiratory Index 0.7 Hgb O2 Saturation 97.1 (95.0-98.0) % Vent Mode Prvc Mechanical Rate 15 FiO2 40.0 % Tidal Volume 440 PEEP 5 Sodium 139 (132-148) mmol/L Potassium 3.3 L (3.6-5.2) mmol/L Chloride 104 (98-107) mmol/L Carbon Dioxide 26 (22-30) mmol/L Anion Gap 12 (10-20) BUN 62 H (7-17) mg/dL Creatinine 2.8 H (0.7-1.2) mg/dL Est GFR ( Amer) 20 Est GFR (Non-Af Amer) 17 Random Glucose 229 H (65-105) mg/dL Calcium 8.2 L (8.6-10.4) mg/dl Phosphorus 3.6 (2.5-4.5) mg/dL Magnesium 2.2 (1.6-2.3) mg/dL Total Bilirubin 0.8 (0.2-1.3) mg/dL AST 73 H D (14-36) U/L ALT 55 H D (9-52) U/L Alkaline Phosphatase 219 H (38-126) U/L Total Protein 5.2 L (6.3-8.3) g/dL Albumin 2.6 L (3.5-5.0) g/dL Globulin 2.7 (2.2-3.9) gm/dL Albumin/Globulin Ratio 1.0 (1.0-2.1) Laboratory Results - last 24 hr 05/24/18 05/24/18 05/24/18 06:00 07:04 07:04 WBC 18.5 H RBC 2.63 L Hgb 8.6 L Hct 26.7 L MCV 101.6 H MCH 32.7 H MCHC 32.2 L RDW 16.0 H Plt Count 108 L MPV 11.1 Neut % (Auto) 88.7 H Lymph % (Auto) 2.9 L [place] % (Auto) 8.1 Eos % (Auto) 0.0 Baso % (Auto) 0.3 Neut # (Auto) 16.4 H Lymph # (Auto) 0.5 L [place] # (Auto) 1.5 H Eos # (Auto) 0.0 Baso # (Auto) 0.1 Neutrophils % (Manual) 91 H Lymphocytes % (Manual) 3 L Monocytes % (Manual) 6 Platelet Estimate Slightly decreased L Polychromasia Slight Hypochromasia (manual) Slight Anisocytosis (manual) Moderate Macrocytosis (manual) Slight Puncture Site Rradial pCO2 40 pO2 139 H HCO3 26.0 ABG pH 7.42 ABG Total CO2 27.1 ABG O2 Saturation 97.5 ABG Base Excess 1.3 ABG Hemoglobin 8.1 L ABG Carboxyhemoglobin 0.2 L POC ABG HHb (Measured) 2.5 ABG Methemoglobin 0.2 Nioclás Test Pos A-a O2 Difference 96.0 Respiratory Index 0.7 Hgb O2 Saturation 97.1 Vent Mode Prvc Mechanical Rate 15 FiO2 40.0 Tidal Volume 440 PEEP 5 Sodium 139 Potassium 3.3 L Chloride 104 Carbon Dioxide 26 Anion Gap 12 BUN 62 H Creatinine 2.8 H Est GFR ( Amer) 20 Est GFR (Non-Af Amer) 17 Random Glucose 229 H Calcium 8.2 L Phosphorus 3.6 Magnesium 2.2 Total Bilirubin 0.8 AST 73 H D ALT 55 H D Alkaline Phosphatase 219 H Total Protein 5.2 L Albumin 2.6 L Globulin 2.7 Albumin/Globulin Ratio 1.0 Radiology Impressions: Radiology Impressions Chest X-Ray 05/23/18 08:00 IMPRESSION: Interval improvement in the lungs noted since the previous exam. Chest X-Ray 05/24/18 08:00 IMPRESSION: Interval improvement in the pulmonary vascular congestion since the previous exam. Otherwise no significant changes. Fingerstick Blood Sugar Results: 280 Assessment/Plan (1) Cellulitis of left lower extremity Assessment and plan: 72yo F. PMHx CHF, CAD, HTN, hyperlipidemia, hypothyroidism, DM type 2, CKD. p/w cellulitis that has progressed to septic shock, with streptococcal bacteremia and ATN. Started on dialysis (05/17). Extubated (05/20) and reintubated secondary to bradycardia. Neuro: off all sedation for days now. She is alert and follows commands. Pulm: acute respiratory failure from aspiration of bilious vomitus. intubated on vent, PRVC. Will attempt second extubation today, will start some low dose dopamine prior to extubation, to counter any bradycardia. CV: hemodynamically stable. Will start Dopamine on next extubation attempt. Patient became bradycardic on last extubation attempt, I believe this is a stress induced ischemia induced arrythmia, she will need a cath at a later date. Cardio - Dr. Ramires Hem: anemia of chronic disease, Thrombocytopenia from sepsis and ESRD. Renal: anuric ATN. Continue dialysis. Will need permacath once blood culture negative (05/19) and afebrile x 24h at least. Endo: DM type 2, SISS for coverage GI: NPO, starting Glucerna. ID: gram positive bacteremia from LLE cellulitis, Group C Strep, culture negative from (05/19). Continue Aztreonam and Clindamycin. DVT proph - heparin sq GI proph - protonix wolf for strict I/O's during acute illness Code status - full code RIJ trialysis (05/16) Critical Care Time spent 35 minutes Multi-disciplinary rounds were performed with house staff, nursing, speech the rapy, respiratory therapy, pharmacy and nutrition with integrated input from the primary team/attending and other consulting services. The documented time is cumulative and includes review of patient data/exams/labs/chart review and examination of the patient on rounds and throughout the day; time is exclusive of any procedures or teaching time. Current Visit: Yes Status: Acute
--- NOTE | 2018-05-24 13:56 | CP.PCM.PN ---
<Mychal Razo - Last Filed: 05/24/18 13:53> Subjective - Date & Time of Evaluation Date of Evaluation: 05/24/18 Time of Evaluation: 07:30 - Subjective Subjective: General Surgery Note for Dr. Koo Patient seen and examined at bedside this AM. Patient remains intubated and on pRVC. Family will decide on trach. Objective - Vital Signs/Intake and Output Vital Signs (last 24 hours): Temp Pulse Resp BP Pulse Ox 99.2 F 95 H 18 123/51 L 100 05/24/18 12:00 05/24/18 12:00 05/24/18 12:00 05/24/18 11:56 05/24/18 12:00 Intake and Output: 05/24/18 05/24/18 06:59 18:59 Intake Total 780 265.5 Output Total 100 Balance 780 165.5 - Medications Medications: Current Medications Acetaminophen (Tylenol 650mg/20.3ml Solution Ud) 650 mg PO Q6 PRN PRN Reason: Fever >100.4 F or Pain Last Admin: 05/23/18 22:01 Dose: 650 mg Albuterol/Ipratropium (Duoneb 3 Mg/0.5 Mg (3 Ml) Ud) 3 ml INH RQ6 [facility] Last Admin: 05/24/18 07:50 Dose: 3 ml Dextrose (Dextrose 50% Inj) 0 ml IV STAT PRN; Protocol PRN Reason: Hypoglycemia Protocol Last Admin: 05/18/18 18:17 Dose: 50 ml Dextrose (Glutose 15) 0 gm PO ONCE PRN; Protocol PRN Reason: Hypoglycemia Protocol Epoetin Anthony (Procrit) 10,000 unit IV MWF [facility] Last Admin: 05/22/18 20:00 Dose: 10,000 unit Ergocalciferol (Drisdol 50,000 Intl Units Cap) 1 cap PO Q7D [facility] Last Admin: 05/18/18 13:24 Dose: 1 cap Ferrous Gluconate (Fergon) 324 mg PO TID [facility] Last Admin: 05/24/18 13:16 Dose: 324 mg Glucagon (Glucagen Diagnostic Kit) 0 mg IM STAT PRN; Protocol PRN Reason: Hypoglycemia Protocol Aztreonam 1 gm/ Sodium (Chloride) 100 mls @ 100 mls/hr IVPB Q12H [facility]; Protocol Last Admin: 05/24/18 08:59 Dose: 100 mls/hr Clindamycin Phosphate 600 mg/ (Sodium Chloride) 54 mls @ 100 mls/hr IVPB Q8H [facility]; Protocol Last Admin: 05/24/18 05:25 Dose: 100 mls/hr Vancomycin/Sodium Chloride (Vancomycin 1 Gm/Ns 200 Ml) 1 gm in 200 mls @ 133.333 mls/hr IVPB MWF [facility]; Protocol Stop: 05/25/18 09:01 Last Admin: 05/20/18 09:30 Dose: Not Given Dopamine HCl/Dextrose (Dopamine 400mg/250ml D5w) 400 mg in 250 mls @ 5.503 mls/hr IV .Q24H PRN; Protocol PRN Reason: TITRATE PER MD ORDER Last Admin: 05/24/18 11:52 Dose: 2 mcg/kg/min, 5.503 mls/hr Insulin Aspart (Novolog) 0 unit SC Q6 [facility]; Protocol Last Admin: 05/24/18 13:16 Dose: 8 units Montelukast Sodium (Singulair) 10 mg PO HS [facility] Last Admin: 05/23/18 22:01 Dose: 10 mg Pantoprazole Sodium (Protonix Inj) 40 mg IVP DAILY [facility] Last Admin: 05/24/18 09:49 Dose: 40 mg Potassium Chloride (Potassium Chloride Oral Soln) 20 meq NG Q4H [facility] Stop: 05/24/18 14:31 Last Admin: 05/24/18 10:48 Dose: 20 meq Vitamin B Complex/Vit C/Folic Acid (Nephro-Pancho) 1 tab PO 0800 [facility] Last Admin: 05/24/18 09:50 Dose: 1 tab - Labs Labs: 05/24/18 07:04 05/24/18 07:04 PT 19.8 SECONDS (9.7-12.2) H 05/17/18 06:09 INR 1.8 05/17/18 06:09 APTT 40 SECONDS (21-34) H D 05/17/18 06:09 - Additional Findings Additional findings: - Constitutional Appears: Chronically Ill - Head Exam Head Exam: ATRAUMATIC, NORMOCEPHALIC - Eye Exam Eye Exam: EOMI, Normal appearance Pupil Exam: PERRL - ENT Exam ENT Exam: Mucous Membranes Moist Additional comments: ETT in place NGT in place - Respiratory Exam Additional comments: PRVC - Cardiovascular Exam Cardiovascular Exam: REGULAR RHYTHM - GI/Abdominal Exam GI & Abdominal Exam: Soft. absent: Tenderness - Extremities Exam Extremities exam: Positive for: pedal pulses present. Negative for: normal capillary refill - Neurological Exam Additional comments: [id number] - Skin Skin Exam: Intact, Warm Assessment and Plan - Assessment and Plan (Free Text) Assessment: 52 M with respiratory failure and inability to wean from vent Plan: -Possible tracheostomy Thursday 05/25 -Will discuss with family -Medical optimization -f/u cardiology -Medical management as per ICU -Discussed with Dr. wilton Razo PGY2 <Lee Koo B - Last Filed: 05/27/18 17:34> Objective - Vital Signs/Intake and Output Vital Signs (last 24 hours): Temp Pulse Resp BP Pulse Ox 98 F 92 H 15 106/49 L 94 L 05/27/18 12:40 05/27/18 17:18 05/27/18 17:18 05/27/18 17:18 05/27/18 16:18 Intake and Output: 05/27/18 05/27/18 06:59 18:59 Intake Total 400 550 Output Total 2 Balance 398 550 - Medications Medications: Current Medications Acetaminophen (Tylenol 650mg/20.3ml Solution Ud) 650 mg PO Q6 PRN PRN Reason: Fever >100.4 F or Pain Last Admin: 05/27/18 12:38 Dose: 650 mg Albuterol/Ipratropium (Duoneb 3 Mg/0.5 Mg (3 Ml) Ud) 3 ml INH RQ6 [facility] Last Admin: 05/25/18 14:12 Dose: Not Given Dextrose (Dextrose 50% Inj) 0 ml IV STAT PRN; Protocol PRN Reason: Hypoglycemia Protocol Last Admin: 05/18/18 18:17 Dose: 50 ml Dextrose (Glutose 15) 0 gm PO ONCE PRN; Protocol PRN Reason: Hypoglycemia Protocol Epoetin Anthony (Procrit) 10,000 unit IV MWF [facility] Last Admin: 05/27/18 10:18 Dose: 10,000 unit Ergocalciferol (Drisdol 50,000 Intl Units Cap) 1 cap PO Q7D [facility] Last Admin: 05/25/18 10:05 Dose: 1 cap Ferrous Gluconate (Fergon) 324 mg PO TID [facility] Last Admin: 05/27/18 17:06 Dose: 324 mg Glucagon (Glucagen Diagnostic Kit) 0 mg IM STAT PRN; Protocol PRN Reason: Hypoglycemia Protocol Heparin Sodium (Porcine) (Heparin) 5,000 units SC Q8 [facility] Last Admin: 05/27/18 14:52 Dose: 5,000 units Aztreonam 1 gm/ Sodium (Chloride) 100 mls @ 100 mls/hr IVPB Q12H [facility]; Protocol Last Admin: 05/27/18 08:30 Dose: 100 mls/hr Clindamycin Phosphate 600 mg/ (Sodium Chloride) 54 mls @ 100 mls/hr IVPB Q8H [facility]; Protocol Last Admin: 05/27/18 14:52 Dose: 100 mls/hr Dopamine HCl/Dextrose (Dopamine 400mg/250ml D5w) 400 mg in 250 mls @ 4.305 mls/hr IV .Q24H PRN; Protocol PRN Reason: TITRATE PER MD ORDER Last Titration: 05/26/18 10:30 Dose: 0 mcg/kg/min, 0 mls/hr Sodium Chloride (Sodium Chloride 0.9%) 1,000 mls @ 50 mls/hr IV .Q20H [facility] Insulin Aspart (Novolog) 0 unit SC ACHS [facility]; Protocol Last Admin: 05/27/18 17:05 Dose: 2 units Montelukast Sodium (Singulair) 10 mg PO HS [facility] Last Admin: 05/26/18 21:15 Dose: 10 mg Pantoprazole Sodium (Protonix Inj) 40 mg IVP DAILY [facility] Last Admin: 05/27/18 09:35 Dose: 40 mg Vitamin B Complex/Vit C/Folic Acid (Nephro-Pancho) 1 tab PO 0800 [facility] Last Admin: 05/27/18 08:00 Dose: 1 tab - Labs Labs: 05/27/18 05:54 05/27/18 05:52 PT 12.7 SECONDS (9.7-12.2) H 05/27/18 05:54 INR 1.2 05/27/18 05:54 APTT 29 SECONDS (21-34) 05/27/18 05:54 Attending/Attestation - Attestation I have personally seen and examined this patient.: Yes I have fully participated in the care of the patient.: Yes I have reviewed all pertinent clinical information, including history, physical exam and plan: Yes Notes (Text): Pt was seen and examined at present Agree with above note and assessment Pt is tolerating weaning Possible extubation tomorrow Will sign off at present f.u consult if pt needs tracheostomy Plan d.w primary team in detail.
[2018-05-24] MEDS: Acetaminophen 650mg/20.3ml solution UD PO PRN (21:19)
--- NOTE | 2018-05-24 21:35 | CP.PCM.PN ---
Subjective - Date & Time of Evaluation Date of Evaluation: 05/24/18 Time of Evaluation: 09:00 - Subjective Subjective: remains intubated for possible trach discussed with son at bedside Objective - Vital Signs/Intake and Output Vital Signs (last 24 hours): Temp Pulse Resp BP Pulse Ox 99.2 F 105 H 16 131/55 L 98 05/24/18 12:00 05/24/18 15:00 05/24/18 15:00 05/24/18 14:56 05/24/18 15:00 Intake and Output: 05/24/18 05/24/18 06:59 18:59 Intake Total 780 282.0 Output Total 100 Balance 780 182.0 - Medications Medications: Current Medications Acetaminophen (Tylenol 650mg/20.3ml Solution Ud) 650 mg PO Q6 PRN PRN Reason: Fever >100.4 F or Pain Last Admin: 05/23/18 22:01 Dose: 650 mg Albuterol/Ipratropium (Duoneb 3 Mg/0.5 Mg (3 Ml) Ud) 3 ml INH RQ6 [facility] Last Admin: 05/24/18 13:00 Dose: 3 ml Dextrose (Dextrose 50% Inj) 0 ml IV STAT PRN; Protocol PRN Reason: Hypoglycemia Protocol Last Admin: 05/18/18 18:17 Dose: 50 ml Dextrose (Glutose 15) 0 gm PO ONCE PRN; Protocol PRN Reason: Hypoglycemia Protocol Epoetin Anthony (Procrit) 10,000 unit IV MWF [facility] Last Admin: 05/22/18 20:00 Dose: 10,000 unit Ergocalciferol (Drisdol 50,000 Intl Units Cap) 1 cap PO Q7D [facility] Last Admin: 05/18/18 13:24 Dose: 1 cap Ferrous Gluconate (Fergon) 324 mg PO TID [facility] Last Admin: 05/24/18 13:16 Dose: 324 mg Glucagon (Glucagen Diagnostic Kit) 0 mg IM STAT PRN; Protocol PRN Reason: Hypoglycemia Protocol Aztreonam 1 gm/ Sodium (Chloride) 100 mls @ 100 mls/hr IVPB Q12H [facility]; Protocol Last Admin: 05/24/18 08:59 Dose: 100 mls/hr Clindamycin Phosphate 600 mg/ (Sodium Chloride) 54 mls @ 100 mls/hr IVPB Q8H [facility]; Protocol Last Admin: 05/24/18 14:02 Dose: 100 mls/hr Vancomycin/Sodium Chloride (Vancomycin 1 Gm/Ns 200 Ml) 1 gm in 200 mls @ 133.333 mls/hr IVPB MWF [facility]; Protocol Stop: 05/25/18 09:01 Last Admin: 05/20/18 09:30 Dose: Not Given Dopamine HCl/Dextrose (Dopamine 400mg/250ml D5w) 400 mg in 250 mls @ 5.503 mls/hr IV .Q24H PRN; Protocol PRN Reason: TITRATE PER MD ORDER Last Admin: 05/24/18 11:52 Dose: 2 mcg/kg/min, 5.503 mls/hr Insulin Aspart (Novolog) 0 unit SC Q6 [facility]; Protocol Last Admin: 05/24/18 13:16 Dose: 8 units Montelukast Sodium (Singulair) 10 mg PO HS [facility] Last Admin: 05/23/18 22:01 Dose: 10 mg Pantoprazole Sodium (Protonix Inj) 40 mg IVP DAILY [facility] Last Admin: 05/24/18 09:49 Dose: 40 mg Vitamin B Complex/Vit C/Folic Acid (Nephro-Pancho) 1 tab PO 0800 [facility] Last Admin: 05/24/18 09:50 Dose: 1 tab - Labs Labs: 05/24/18 07:04 05/24/18 07:04 PT 19.8 SECONDS (9.7-12.2) H 05/17/18 06:09 INR 1.8 05/17/18 06:09 APTT 40 SECONDS (21-34) H D 05/17/18 06:09 - Constitutional Appears: Chronically Ill - Head Exam Head Exam: NORMOCEPHALIC Additional comments: ETT + - Eye Exam Eye Exam: absent: Scleral icterus Pupil Exam: NORMAL ACCOMODATION - ENT Exam ENT Exam: Mucous Membranes Dry - Respiratory Exam Respiratory Exam: Decreased Breath Sounds - Cardiovascular Exam Cardiovascular Exam: REGULAR RHYTHM - GI/Abdominal Exam GI & Abdominal Exam: Distended - Rectal Exam Rectal Exam: Deferred - Exam Exam: NORMAL INSPECTION - Extremities Exam Extremities Exam: absent: Pedal Edema - Back Exam Back Exam: absent: CVA tenderness (L), CVA tenderness (R) - Neurological Exam Neurological Exam: Alert, Altered, CN II-XII Intact - Psychiatric Exam Psychiatric exam: Depressed - Skin Skin Exam: Dry Assessment and Plan (1) Multi-organ system dysfunction Status: Acute (2) Septic shock Status: Acute (3) Cellulitis of left lower extremity Status: Acute (4) Coagulopathy Status: Acute (5) Pancytopenia Status: Acute (6) Sepsis Status: Acute (7) Respiratory failure requiring intubation Status: Acute (8) Respiratory failure with hypoxia and hypercapnia Status: Acute (9) ARRON (acute kidney injury) Status: Acute - Assessment and Plan (Free Text) Assessment: SEPSIS/ RESP FAILURE/ PNEUMONIA RENAL FAILURE SEPTIC SHOCK ESRD ON HD CELLULITIS LEFT LEG CONT CLINDA/ AZACTAM POSSIBLE TRACH AND PEG
[2018-05-25] MEDS: (Novolog) Insulin Aspart, Recombinant 100 u/ml 10 ml vial SC SCH ×4 (01:00→17:56)
[2018-05-25] MEDS: Albuterol-Ipratrop 3 mg / 0.5 (3 ml) UD INH SCH ×3 (02:50→14:12)
[2018-05-25 05:59] LABS: ABG ALLEN TEST POS; ARTERIAL BLOOD GAS HCO3 23.9 mmol/L (21-28); ARTERIAL BLOOD GAS HEMOGLOBIN 9.9 g/dL (11.7-17.4); ARTERIAL BLOOD GAS O2 SAT 97.5 % (95-98); ARTERIAL BLOOD GAS PCO2 40 mm/Hg (35-45); ARTERIAL BLOOD GAS PH 7.38 (7.35-7.45); ARTERIAL BLOOD GAS PO2 161 mm/Hg (80-100); ARTERIAL BLOOD GAS TCO2 24.9 mmol/L (22-28)
[2018-05-25 06:24] LABS: BASO % 0.1 % (0.0-2.0); EOS # 0.1 K/uL (0.0-0.7); EOS % 0.4 % (0.0-4.0); HEMOGLOBIN 8.9 g/dL (11.0-16.0); LYMPH # 0.6 K/uL (1.0-4.3); LYMPH % 3.5 % (20.0-40.0); MEAN CELL VOLUME 102.2 fL (81.0-99.0); MEAN CORPUSCULAR HEMOGLOBIN 33.5 pg (27.0-31.0); MEAN CORPUSCULAR HGB CONC 32.8 g/dL (33.0-37.0); MEAN PLATELET VOLUME 11.4 fL (7.2-11.7); MONO # 0.6 K/uL (0.0-0.8); MONO % 3.4 % (0.0-10.0); NEUT # 15.1 K/uL (1.8-7.0); NEUT % 92.6 % (50.0-75.0); NRBC % 0.1 % (0.0-2.0); PLATELET COUNT 122 K/uL (130-400); RBC 2.65 Mil/uL (3.80-5.20); RED CELL DISTRIBUTION WIDTH 16.4 % (11.5-14.5); WHITE BLOOD COUNT 16.3 K/uL (4.8-10.8)
[2018-05-25 06:37] LABS: ALB/GLOB RATIO 0.9 (1.0-2.1); ALBUMIN 2.4 g/dL (3.5-5.0)
[2018-05-25] MEDS: Aztreonam 1 GM in Sodium Chloride 0.9% 100 ML IVPB SCH ×2 (07:30→20:30)
--- NOTE | 2018-05-25 07:58 | CP.PCM.PN ---
Objective - Vital Signs/Intake and Output Vital Signs (last 24 hours): Temp Pulse Resp BP Pulse Ox 98.2 F 97 H 16 88/50 L 99 05/25/18 04:00 05/25/18 06:01 05/25/18 06:01 05/25/18 06:01 05/25/18 06:01 Intake and Output: 05/25/18 05/25/18 06:59 18:59 Intake Total 852 40 Output Total 0 0 Balance 852 40 - Medications Medications: Current Medications Acetaminophen (Tylenol 650mg/20.3ml Solution Ud) 650 mg PO Q6 PRN PRN Reason: Fever >100.4 F or Pain Last Admin: 05/24/18 21:19 Dose: 650 mg Albuterol/Ipratropium (Duoneb 3 Mg/0.5 Mg (3 Ml) Ud) 3 ml INH RQ6 [facility] Last Admin: 05/25/18 02:50 Dose: 3 ml Dextrose (Dextrose 50% Inj) 0 ml IV STAT PRN; Protocol PRN Reason: Hypoglycemia Protocol Last Admin: 05/18/18 18:17 Dose: 50 ml Dextrose (Glutose 15) 0 gm PO ONCE PRN; Protocol PRN Reason: Hypoglycemia Protocol Epoetin Anthony (Procrit) 10,000 unit IV MWF [facility] Last Admin: 05/22/18 20:00 Dose: 10,000 unit Ergocalciferol (Drisdol 50,000 Intl Units Cap) 1 cap PO Q7D [facility] Last Admin: 05/18/18 13:24 Dose: 1 cap Ferrous Gluconate (Fergon) 324 mg PO TID [facility] Last Admin: 05/24/18 18:26 Dose: 324 mg Glucagon (Glucagen Diagnostic Kit) 0 mg IM STAT PRN; Protocol PRN Reason: Hypoglycemia Protocol Aztreonam 1 gm/ Sodium (Chloride) 100 mls @ 100 mls/hr IVPB Q12H [facility]; Protocol Last Admin: 05/24/18 20:50 Dose: 100 mls/hr Clindamycin Phosphate 600 mg/ (Sodium Chloride) 54 mls @ 100 mls/hr IVPB Q8H [facility]; Protocol Last Admin: 05/25/18 05:10 Dose: 100 mls/hr Vancomycin/Sodium Chloride (Vancomycin 1 Gm/Ns 200 Ml) 1 gm in 200 mls @ 133.333 mls/hr IVPB MWF [facility]; Protocol Stop: 05/25/18 09:01 Last Admin: 05/20/18 09:30 Dose: Not Given Dopamine HCl/Dextrose (Dopamine 400mg/250ml D5w) 400 mg in 250 mls @ 5.503 mls/hr IV .Q24H PRN; Protocol PRN Reason: TITRATE PER MD ORDER Last Titration: 05/24/18 17:00 Dose: 0 mcg/kg/min, 0 mls/hr Insulin Aspart (Novolog) 0 unit SC Q6 [facility]; Protocol Last Admin: 05/25/18 06:02 Dose: Not Given Montelukast Sodium (Singulair) 10 mg PO HS [facility] Last Admin: 05/24/18 21:04 Dose: 10 mg Pantoprazole Sodium (Protonix Inj) 40 mg IVP DAILY [facility] Last Admin: 05/24/18 09:49 Dose: 40 mg Vitamin B Complex/Vit C/Folic Acid (Nephro-Pancho) 1 tab PO 0800 [facility] Last Admin: 05/24/18 09:50 Dose: 1 tab - Labs Labs: 05/25/18 06:15 05/25/18 06:14 PT 19.8 SECONDS (9.7-12.2) H 05/17/18 06:09 INR 1.8 05/17/18 06:09 APTT 40 SECONDS (21-34) H D 05/17/18 06:09
[2018-05-25 08:33] LABS: LYMPHOCYTE 3 % (20-40); MONOCYTE 3 % (0-10); NEUTROPHIL 94 % (50-75); PLATELET ESTIMATE SLIGHTLY DECREASED (NORMAL); TARGET CELLS SLIGHT; TOTAL CELLS COUNTED 100
[2018-05-25 08:34] LABS: ANISOCYTOSIS SLIGHT; LARGE PLATELETS PRESENT; POIKILOCYTOSIS SLIGHT
--- NOTE | 2018-05-25 08:44 | RAD ---
Date of service: 05/25/2018 HISTORY: intubated COMPARISON: Portable chest 05/24/2018. TECHNIQUE: 1 view obtained. FINDINGS: LUNGS: ET and nasogastric tubes do not appear significantly changed in position. Aeration is seen the left base with no definitive infiltrate appreciable bilaterally. PLEURA: No significant pleural effusion identified, no pneumothorax apparent. CARDIOVASCULAR: Calcific atherosclerotic changes are seen related to the thoracic aorta. Cardiomegaly appears stable. Prominent reticular markings may reflect limited pulmonary vascular congestion, a borderline finding. OSSEOUS STRUCTURES: No significant abnormalities. VISUALIZED UPPER ABDOMEN: Normal. OTHER FINDINGS: None. IMPRESSION: No interval infiltrates with left base improved aeration. Stable cardiomegaly. Limited pulmonary vascular congestion questioned.
[2018-05-25] MEDS: Multivitamin Vitamin B Complex (Nephro-Vite) Tab PO SCH (08:50)
[2018-05-25] MEDS: Ergocalciferol 50,000 Intl Units Cap PO SCH (10:05)
--- NOTE | 2018-05-25 11:21 | CP.PCM.CON ---
History of Present Illness - History of Present Illness History of Present Illness: seen on rounds may need trach and PEG Review of Systems - Review of Systems All systems: reviewed and no additional remarkable complaints except - Constitutional Constitutional: Weakness - EENT Eyes: absent: As Per HPI, Blind Spots, Blurred Vision, Change in Vision, Decreased Night Vision, Diplopia, Discharge, Dry Eye, Exophthalmos, Floaters, Irritation, Itchy Eyes, Loss of Peripheral Vision, Pain, Photophobia, Requires Corrective Lenses, Sees Flashes, Spots in Vision, Tunnel Vision, Other Visual Disturbances, Loss of Vision, Other Ears: absent: As Per HPI, Decreased Hearing, Ear Discharge, Ear Pain, Tinnitus, Abnormal Hearing, Disequilibrium, Dizziness, Other Nose/Mouth/Throat: absent: As Per HPI, Epistaxis, Nasal Congestion, Nasal Discharge, Nasal Obstruction, Nasal Trauma, Nose Pain, Post Nasal Drip, Sinus Pain, Sinus Pressure, Bleeding Gums, Change in Voice, Dental Pain, Dry Mouth, Dysphagia, Halitosis, Hoarsness, Lip Swelling, Mouth Lesions, Mouth Pain, Odynophagia, Sore Throat, Throat Swelling, Tongue Swelling, Facial Pain, Neck Pain, Neck Mass, Other - Cardiovascular Cardiovascular: absent: As Per HPI, Acrocyanosis, Chest Pain, Chest Pain at Rest, Chest Pain with Activity, Claudication, Diaphoresis, Dyspnea, Dyspnea on Exertion, Edema, Irregular Heart Rhythm, Pain Radiating to Arm/Neck/Jaw, Leg Edema, Leg Ulcers, Lightheadedness, Orthopnea, Palpitations, Paroxysmal [place]ct[place] al Dyspnea, Pedal Edema, Radiating Pain, Rapid Heart Rate, Slow Heart Rate, Syncope, Other - Respiratory Respiratory: absent: As Per HPI, Cough, Dyspnea, Hemoptysis, Dyspnea on Exertion, Wheezing, Snoring, Stridor, Pain on Inspiration, Chest Congestion, Excessive Mucous Production, Change in Mucous Color, Pain with Coughing, Other - Gastrointestinal Gastrointestinal: absent: As Per HPI, Abdominal Pain, Belching, Bloating, Change in Bowel Habits, Change in Stool Character, Coffee Ground Emesis, Constipation, Cramping, Diarrhea, Dyspepsia, Dysphagia, Early Satiety, Excessive Flatus, Fecal Incontinence, Heartburn, Hematemesis, Hematochezia, Loose Stools, Melena, Nausea, Odynophagia, Temesmus, Vomiting, Other Past Patient History - Past Medical History & Family History Past Medical History?: Yes - Past Social History Smoking Status: Never Smoked - CARDIAC Hx Congestive Heart Failure: Yes Hx Hypertension: Yes - ENDOCRINE/METABOLIC Hx Endocrine Disorders: Yes Hx Diabetes Mellitus Type 2: Yes - MUSCULOSKELETAL/RHEUMATOLOGICAL Hx Falls: Yes - PSYCHIATRIC Hx Substance Use: No - SURGICAL HISTORY Hx Coronary Artery Bypass Graft: Yes - ANESTHESIA Hx Anesthesia: Yes Has any member of the family had a problem w/ anesthesia?: No Meds Allergies/Adverse Reactions: Allergies Allergy/AdvReac Type Severity Reaction Status Date / Time Penicillins Allergy Verified 05/15/18 11:34 - Medications Medications: Current Medications Acetaminophen (Tylenol 650mg/20.3ml Solution Ud) 650 mg PO Q6 PRN PRN Reason: Fever >100.4 F or Pain Last Admin: 05/24/18 21:19 Dose: 650 mg Albuterol/Ipratropium (Duoneb 3 Mg/0.5 Mg (3 Ml) Ud) 3 ml INH RQ6 [facility] Last Admin: 05/25/18 08:21 Dose: 3 ml Dextrose (Dextrose 50% Inj) 0 ml IV STAT PRN; Protocol PRN Reason: Hypoglycemia Protocol Last Admin: 05/18/18 18:17 Dose: 50 ml Dextrose (Glutose 15) 0 gm PO ONCE PRN; Protocol PRN Reason: Hypoglycemia Protocol Epoetin Anthony (Procrit) 10,000 unit IV MWF [facility] Last Admin: 05/22/18 20:00 Dose: 10,000 unit Ergocalciferol (Drisdol 50,000 Intl Units Cap) 1 cap PO Q7D [facility] Last Admin: 05/25/18 10:05 Dose: 1 cap Ferrous Gluconate (Fergon) 324 mg PO TID [facility] Last Admin: 05/25/18 09:21 Dose: 324 mg Glucagon (Glucagen Diagnostic Kit) 0 mg IM STAT PRN; Protocol PRN Reason: Hypoglycemia Protocol Aztreonam 1 gm/ Sodium (Chloride) 100 mls @ 100 mls/hr IVPB Q12H [facility]; Protocol Last Admin: 05/25/18 07:30 Dose: 100 mls/hr Clindamycin Phosphate 600 mg/ (Sodium Chloride) 54 mls @ 100 mls/hr IVPB Q8H [facility]; Protocol Last Admin: 05/25/18 05:10 Dose: 100 mls/hr Dopamine HCl/Dextrose (Dopamine 400mg/250ml D5w) 400 mg in 250 mls @ 5.503 mls/hr IV .Q24H PRN; Protocol PRN Reason: TITRATE PER MD ORDER Last Titration: 05/24/18 17:00 Dose: 0 mcg/kg/min, 0 mls/hr Insulin Aspart (Novolog) 0 unit SC Q6 [facility]; Protocol Last Admin: 05/25/18 06:02 Dose: Not Given Montelukast Sodium (Singulair) 10 mg PO HS [facility] Last Admin: 05/24/18 21:04 Dose: 10 mg Pantoprazole Sodium (Protonix Inj) 40 mg IVP DAILY [facility] Last Admin: 05/25/18 09:21 Dose: 40 mg Vitamin B Complex/Vit C/Folic Acid (Nephro-Pancho) 1 tab PO 0800 [facility] Last Admin: 05/25/18 08:50 Dose: 1 tab Physical Exam - Constitutional Appears: Toxic, Older Than Stated Age, Chronically Ill - Head Exam Head Exam: NORMOCEPHALIC - Eye Exam Eye Exam: absent: Scleral icterus - ENT Exam ENT Exam: Mucous Membranes Dry - Neck Exam Neck exam: Negative for: Lymphadenopathy Additional comments: intubated - Respiratory Exam Respiratory Exam: Decreased Breath Sounds - Cardiovascular Exam Cardiovascular Exam: REGULAR RHYTHM - GI/Abdominal Exam GI & Abdominal Exam: Diminished Bowel Sounds, Soft - Rectal Exam Rectal Exam: Deferred - Exam Exam: NORMAL INSPECTION - Extremities Exam Extremities exam: Positive for: pedal edema - Back Exam Back exam: absent: CVA tenderness (L), CVA tenderness (R) - Neurological Exam Neurological exam: Altered - Psychiatric Exam Psychiatric exam: Depressed Results - Vital Signs Recent Vital Signs: Last Vital Signs Temp 98.2 F 05/25/18 08:00 Pulse 99 H 05/25/18 10:04 Resp 13 05/25/18 10:04 BP 126/57 L 05/25/18 10:04 Pulse Ox 100 05/25/18 10:04 - Labs Result Diagrams: 05/25/18 06:15 05/25/18 06:14 Labs: Laboratory Results - last 24 hr 05/24/18 05/24/18 05/25/18 17:50 23:35 05:17 WBC RBC Hgb Hct MCV MCH MCHC RDW Plt Count MPV Neut % (Auto) Lymph % (Auto) [place] % (Auto) Eos % (Auto) Baso % (Auto) Neut # (Auto) Lymph # (Auto) [place] # (Auto) Eos # (Auto) Baso # (Auto) Neutrophils % (Manual) Lymphocytes % (Manual) Monocytes % (Manual) Platelet Estimate Large Platelets Poikilocytosis (manual Anisocytosis (manual) Target Cells Puncture Site pCO2 pO2 HCO3 ABG pH ABG Total CO2 ABG O2 Saturation ABG Base Excess ABG Hemoglobin ABG Carboxyhemoglobin POC ABG HHb (Measured) ABG Methemoglobin Nicolás Test A-a O2 Difference Respiratory Index Hgb O2 Saturation Vent Mode Mechanical Rate FiO2 Tidal Volume PEEP Sodium Potassium Chloride Carbon Dioxide Anion Gap BUN Creatinine Est GFR ( Amer) Est GFR (Non-Af Amer) POC Glucose (mg/dL) 175 H 244 H 135 H Random Glucose Calcium Phosphorus Magnesium Total Bilirubin AST ALT Alkaline Phosphatase Total Protein Albumin Globulin Albumin/Globulin Ratio 05/25/18 05/25/18 05/25/18 05:20 06:14 06:15 WBC 16.3 H RBC 2.65 L Hgb 8.9 L Hct 27.1 L MCV 102.2 H MCH 33.5 H MCHC 32.8 L RDW 16.4 H Plt Count 122 L MPV 11.4 Neut % (Auto) 92.6 H Lymph % (Auto) 3.[address] [place] % (Auto) 3.4 Eos % (Auto) 0.4 Baso % (Auto) 0.1 Neut # (Auto) 15.1 H Lymph # (Auto) 0.[address] [place] # (Auto) 0.6 Eos # (Auto) 0.1 Baso # (Auto) 0.0 Neutrophils % (Manual) 94 H Lymphocytes % (Manual) 3 L Monocytes % (Manual) 3 Platelet Estimate Slightly decreased L Large Platelets Present Poikilocytosis (manual Slight Anisocytosis (manual) Slight Target Cells Slight Puncture Site Rradial pCO2 40 pO2 161 H HCO3 23.9 ABG pH 7.38 ABG Total CO2 24.9 ABG O2 Saturation 97.5 ABG Base Excess -1.3 ABG Hemoglobin 9.9 L ABG Carboxyhemoglobin 0.3 L POC ABG HHb (Measured) 2.5 ABG Methemoglobin 0.8 Nicolás Test Pos A-a O2 Difference 74.0 Respiratory Index 0.5 Hgb O2 Saturation 96.3 Vent Mode Prvc Mechanical Rate 15 FiO2 40.0 Tidal Volume 440 PEEP 5 Sodium 139 Potassium 3.6 Chloride 107 Carbon Dioxide 22 Anion Gap 14 BUN 74 H Creatinine 3.2 H Est GFR ( Amer) 17 Est GFR (Non-Af Amer) 14 POC Glucose (mg/dL) Random Glucose 135 H D Calcium 8.0 L Phosphorus 4.3 Magnesium 2.2 Total Bilirubin 0.7 AST 61 H ALT 52 Alkaline Phosphatase 183 H Total Protein 5.1 L Albumin 2.4 L Globulin 2.7 Albumin/Globulin Ratio 0.9 L Assessment & Plan (1) Multi-organ system dysfunction Status: Acute (2) Septic shock Status: Acute (3) Cellulitis of left lower extremity Status: Acute (4) Coagulopathy Status: Acute (5) Pancytopenia Status: Acute (6) Sepsis Status: Acute (7) Respiratory failure requiring intubation Status: Acute (8) Respiratory failure with hypoxia and hypercapnia Status: Acute (9) ARRON (acute kidney injury) Status: Acute - Assessment and Plan (Free Text) Assessment: sepsis resp failure pneumonia septic shock with multiorgan system failure renal failure cellulitis bacteremia prognosis poor cont iv rx
[2018-05-25] MEDS: Epoetin Alfa 10,000 unit/ml Dialysis IV SCH (12:20)
[2018-05-25] MEDS: DOPamine 400mg/250ml D5W 400 MG/250 ML BAG IV PRN (13:03)
[2018-05-25] MEDS ORDERED: DOPamine 400mg/250ml D5W 400 MG/250 ML BAG IV PRN (14:00)
--- NOTE | 2018-05-25 16:07 | CP.PCM.PN ---
Subjective - Date & Time of Evaluation Date of Evaluation: 05/25/18 Time of Evaluation: 16:06 - Subjective Subjective: Nephrology Follow up Note HPI: 72-year-old female with a history of CHF, CAD, hypertension, hyperlipidemia, history of thyroid disease and renal disease, patient admitted to the hospital with a complaining of left lower extremity pain swelling of one day duration along with fever, followed by code sepsis, hypotension leading to resp distress and current intubation. Hx is obtained from charts. currrently intubated on pressors unknown baseline kidney disease, cr is now 3.1 UOP 10-15 cc per hour. on iv fluids and pressors Past medical history: Had a history of congestive heart failure, coronary artery disease, diabetes, hypertension, hypothyroidism, renal insufficiency. Patient has allergic to penicillin Surgical history include coronary artery bypass grafting x2 Social history: No smoking or drinking history noted Family history significant for diabetes and heart disease Medications at this time not available. 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 extubated 05/25/18 On examination: Patient is currently extubated. Off ventilator. Chest B/L air entry improved Heart sounds are regular s1s2 normal Abdomen soft nontender. edema ++ feets better in terms of edema awake calm Left lower extremity erythema, blisters, and swelling noted Assesment: stable oligoanuric ARRON likely ATN/septic shock with cellulitis and ? 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 to plan for permacath placement once pt afebrile and stable. SW consult for outpt HD placement. maintain hemodynamics stable. Avoid hypotension. Patient not on ACEI/ARB due to recent ARRON Monitor Input/Output, daily weights and renal function with basic metabolic panel c/w Iron, MVI. PRBC as needed. epogen ordered supplement Vit D dose vanco by level. supplement lytes as needed. Dose meds/antibiotics for reduced GFR. Avoid fleets enema/magnesium based laxatives. Avoid nephrotoxins/NSAIDs/ iodinated contrast (unless needed emergently) Glycemic control Further work up/management as per primary team Thanks for allowing me to participate in care of your patient. Will follow patient with you. Please call if any Qs. had d/w team and family Dr Edin Castro Office: [phone] Objective - Vital Signs/Intake and Output Vital Signs (last 24 hours): Temp Pulse Resp BP Pulse Ox 98.6 F 109 H 16 118/51 L 100 05/25/18 12:49 05/25/18 15:20 05/25/18 15:20 05/25/18 15:20 05/25/18 15:20 Intake and Output: 05/25/18 05/25/18 06:59 18:59 Intake Total 852 579.6 Output Total 0 0 Balance 852 579.6 - Medications Medications: Current Medications Acetaminophen (Tylenol 650mg/20.3ml Solution Ud) 650 mg PO Q6 PRN PRN Reason: Fever >100.4 F or Pain Last Admin: 05/24/18 21:19 Dose: 650 mg Albuterol/Ipratropium (Duoneb 3 Mg/0.5 Mg (3 Ml) Ud) 3 ml INH RQ6 [facility] Last Admin: 05/25/18 14:12 Dose: Not Given Dextrose (Dextrose 50% Inj) 0 ml IV STAT PRN; Protocol PRN Reason: Hypoglycemia Protocol Last Admin: 05/18/18 18:17 Dose: 50 ml Dextrose (Glutose 15) 0 gm PO ONCE PRN; Protocol PRN Reason: Hypoglycemia Protocol Epoetin Anthony (Procrit) 10,000 unit IV MWF [facility] Last Admin: 05/25/18 12:20 Dose: 10,000 unit Ergocalciferol (Drisdol 50,000 Intl Units Cap) 1 cap PO Q7D [facility] Last Admin: 05/25/18 10:05 Dose: 1 cap Ferrous Gluconate (Fergon) 324 mg PO TID [facility] Last Admin: 05/25/18 13:06 Dose: 324 mg Glucagon (Glucagen Diagnostic Kit) 0 mg IM STAT PRN; Protocol PRN Reason: Hypoglycemia Protocol Aztreonam 1 gm/ Sodium (Chloride) 100 mls @ 100 mls/hr IVPB Q12H [facility]; Protocol Last Admin: 05/25/18 07:30 Dose: 100 mls/hr Clindamycin Phosphate 600 mg/ (Sodium Chloride) 54 mls @ 100 mls/hr IVPB Q8H [facility]; Protocol Last Admin: 05/25/18 13:06 Dose: 100 mls/hr Dopamine HCl/Dextrose (Dopamine 400mg/250ml D5w) 400 mg in 250 mls @ 5.503 mls/hr IV .Q24H [facility]; Protocol PRN Reason: TITRATE PER MD ORDER Last Admin: 05/25/18 13:03 Dose: 2 mcg/kg/min, 5.503 mls/hr Insulin Aspart (Novolog) 0 unit SC Q6 [facility]; Protocol Last Admin: 05/25/18 14:32 Dose: 4 units Montelukast Sodium (Singulair) 10 mg PO HS [facility] Last Admin: 05/24/18 21:04 Dose: 10 mg Pantoprazole Sodium (Protonix Inj) 40 mg IVP DAILY [facility] Last Admin: 05/25/18 09:21 Dose: 40 mg Vitamin B Complex/Vit C/Folic Acid (Nephro-Pancho) 1 tab PO 0800 [facility] Last Admin: 05/25/18 08:50 Dose: 1 tab - Labs Labs: 05/25/18 06:15 05/25/18 06:14 PT 19.8 SECONDS (9.7-12.2) H 05/17/18 06:09 INR 1.8 05/17/18 06:09 APTT 40 SECONDS (21-34) H D 05/17/18 06:09
--- NOTE | 2018-05-25 16:15 | CP.PCM.PN ---
Subjective - Date & Time of Evaluation Date of Evaluation: 05/25/18 Time of Evaluation: 16:13 - Subjective Subjective: Podiatry Progress Note for Dr. Zhu 72F seen and evaluated at bedside for b/l leg swelling with drained serous liquid filled bullae of left leg. Patient is still intubated at this time. Per nursing, no acute overnight events. Patient appears more awake and alert today. Patient is surrounded by family members who do not want her dressing changed at this time. Objective - Vital Signs/Intake and Output Vital Signs (last 24 hours): Temp Pulse Resp BP Pulse Ox 98.6 F 109 H 16 118/51 L 100 05/25/18 12:49 05/25/18 15:20 05/25/18 15:20 05/25/18 15:20 05/25/18 15:20 Intake and Output: 05/25/18 05/25/18 06:59 18:59 Intake Total 852 579.6 Output Total 0 0 Balance 852 579.6 - Medications Medications: Current Medications Acetaminophen (Tylenol 650mg/20.3ml Solution Ud) 650 mg PO Q6 PRN PRN Reason: Fever >100.4 F or Pain Last Admin: 05/24/18 21:19 Dose: 650 mg Albuterol/Ipratropium (Duoneb 3 Mg/0.5 Mg (3 Ml) Ud) 3 ml INH RQ6 [facility] Last Admin: 05/25/18 14:12 Dose: Not Given Dextrose (Dextrose 50% Inj) 0 ml IV STAT PRN; Protocol PRN Reason: Hypoglycemia Protocol Last Admin: 05/18/18 18:17 Dose: 50 ml Dextrose (Glutose 15) 0 gm PO ONCE PRN; Protocol PRN Reason: Hypoglycemia Protocol Epoetin Anthony (Procrit) 10,000 unit IV MWF [facility] Last Admin: 05/25/18 12:20 Dose: 10,000 unit Ergocalciferol (Drisdol 50,000 Intl Units Cap) 1 cap PO Q7D [facility] Last Admin: 05/25/18 10:05 Dose: 1 cap Ferrous Gluconate (Fergon) 324 mg PO TID [facility] Last Admin: 05/25/18 13:06 Dose: 324 mg Glucagon (Glucagen Diagnostic Kit) 0 mg IM STAT PRN; Protocol PRN Reason: Hypoglycemia Protocol Aztreonam 1 gm/ Sodium (Chloride) 100 mls @ 100 mls/hr IVPB Q12H [facility]; Protocol Last Admin: 05/25/18 07:30 Dose: 100 mls/hr Clindamycin Phosphate 600 mg/ (Sodium Chloride) 54 mls @ 100 mls/hr IVPB Q8H [facility]; Protocol Last Admin: 05/25/18 13:06 Dose: 100 mls/hr Dopamine HCl/Dextrose (Dopamine 400mg/250ml D5w) 400 mg in 250 mls @ 5.503 mls/hr IV .Q24H [facility]; Protocol PRN Reason: TITRATE PER MD ORDER Last Admin: 05/25/18 13:03 Dose: 2 mcg/kg/min, 5.503 mls/hr Insulin Aspart (Novolog) 0 unit SC Q6 [facility]; Protocol Last Admin: 05/25/18 14:32 Dose: 4 units Montelukast Sodium (Singulair) 10 mg PO HS [facility] Last Admin: 05/24/18 21:04 Dose: 10 mg Pantoprazole Sodium (Protonix Inj) 40 mg IVP DAILY [facility] Last Admin: 05/25/18 09:21 Dose: 40 mg Vitamin B Complex/Vit C/Folic Acid (Nephro-Pancho) 1 tab PO 0800 [facility] Last Admin: 05/25/18 08:50 Dose: 1 tab - Labs Labs: 05/25/18 06:15 05/25/18 06:14 PT 19.8 SECONDS (9.7-12.2) H 05/17/18 06:09 INR 1.8 05/17/18 06:09 APTT 40 SECONDS (21-34) H D 05/17/18 06:09 - Constitutional Appears: Non-toxic, No Acute Distress - Extremities Exam Additional comments: Dressings left c/d/i to left leg No signs of strikethrough noted at this time - Neurological Exam Neurological Exam: Alert, Awake, Oriented x3 - Psychiatric Exam Psychiatric exam: Normal Affect, Normal Mood Assessment and Plan - Assessment and Plan (Free Text) Assessment: 72F seen and evaluated at bedside for b/l leg swelling with drained serous liquid filled bullae of left leg Plan: Patient seen and evaluated Plan discussed with Dr. Zhu WBC 16.3 Continue abx per ID Wound culture from bullae: No growth after 24 hours Blood cx: Group C Strep Urine cx: E. coli Foot, ankle and tib/fib xrays show no evidence of soft tissue emphysema. Evidence of subcutaneous edema and cellulitis appreciated Dressings left c/d/i to left lower extremity at patient's request No plan for surgical intervention at this time Multipodus boots left in place Podiatry will continue to follow while patient in house
--- NOTE | 2018-05-25 19:38 | CP.CCUPN ---
CCU Subjective - Physician Review Subjective (Free Text): No acute overnight events. Pt seen siting in bed with eyes open and alert. Attempting to communicate with hands. Appears in no acute distress. venting weaning protocol in place. CCU Objective - Vital Signs / Intake & Output Vital Signs (Last 4 hours): Vital Signs Temp Pulse Resp BP Pulse Ox 05/25/18 10:04 99 H 13 126/57 L 100 05/25/18 09:49 99 H 13 121/60 100 05/25/18 09:34 97 H 12 120/52 L 100 05/25/18 09:01 98 H 12 117/56 L 100 05/25/18 08:01 94 H 14 111/54 L 05/25/18 08:00 98.2 F 99 Intake and Output (Last 8hrs): Intake & Output 05/24/18 05/25/18 05/25/18 22:59 06:59 14:59 Intake Total 506.0 420 300 Output Total 0 0 Balance 506.0 420 300 Weight 162 lb 1.6 oz 130 lb 15.273 oz Intake: IV 23 Intake, IV Amount 161.0 50 100 Right Internal Jugular 161.0 50 100 Trialysis Catheter Tube Feeding 200 320 200 Other 122 50 Output: Urine 0 0 Urine, Voided 0 0 Other: # Bowel Movements 0 1 1 - Physical Exam Head: Positive for: Atraumatic, Normocephalic Pupils: Positive for: PERRL Extroacular Muscles: Positive for: EOMI Conjunctiva: Positive for: Normal Ears: Positive for: Normal Mouth: Positive for: Moist Mucous Membranes Nose (External): Positive for: Atraumatic Respiratory/Chest: Positive for: Clear to Auscultation Cardiovascular: Positive for: Regular Rate and Rhythm Abdomen: Positive for: Normal Bowel Sounds. Negative for: Tenderness, Distention Upper Extremity: Positive for: Edema Lower Extremity: Positive for: Edema, Other (skin blisters noted on L anterior calf) Neurological: Positive for: Other (intubated) Psychiatric: Positive for: Other (intubated). Negative for: Alert, Oriented x 3 - Medications Active Medications: Active Medications Generic Name Dose Route Start Last Admin Trade Name Freq PRN Reason Stop Dose Admin Acetaminophen 650 mg 05/18/18 00:30 05/24/18 21:19 Tylenol 650mg/20.3ml Solution Ud PO 650 mg Q6 PRN Administration Fever >100.4 F or Pain Albuterol/Ipratropium 3 ml 05/21/18 14:00 05/25/18 08:21 Duoneb 3 Mg/0.5 Mg (3 Ml) Ud INH 3 ml RQ6 [facility] Administration Dextrose 0 ml 05/16/18 18:32 05/18/18 18:17 Dextrose 50% Inj IV 50 ml STAT PRN Administration Hypoglycemia Protocol Protocol Dextrose 0 gm 05/16/18 18:32 Glutose 15 PO ONCE PRN Hypoglycemia Protocol Protocol Epoetin Anthony 10,000 unit 05/20/18 15:30 05/22/18 20:00 Procrit IV 10,000 unit MWF [facility] Administration Ergocalciferol 1 cap 05/18/18 10:45 05/25/18 10:05 Drisdol 50,000 Intl Units Cap PO 1 cap Q7D [facility] Administration Ferrous Gluconate 324 mg 05/18/18 14:00 05/25/18 09:21 Fergon PO 324 mg TID [facility] Administration Glucagon 0 mg 05/16/18 18:32 Glucagen Diagnostic Kit IM STAT PRN Hypoglycemia Protocol Protocol Aztreonam 1 gm/ Sodium 100 mls @ 100 mls/hr 05/17/18 20:00 05/25/18 07:30 Chloride IVPB 100 mls/hr Q12H [facility] Administration Protocol Clindamycin Phosphate 600 mg/ 54 mls @ 100 mls/hr 05/17/18 22:00 05/25/18 05:10 Sodium Chloride IVPB 100 mls/hr Q8H [facility] Administration Protocol Dopamine HCl/Dextrose 400 mg in 250 mls @ 5.503 mls/hr 05/23/18 13:29 05/24/18 17:00 Dopamine 400mg/250ml D5w IV 0 mcg/kg/min .Q24H PRN 0 mls/hr TITRATE PER MD ORDER Titration Protocol 2 MCG/KG/MIN Insulin Aspart 0 unit 05/18/18 00:00 05/25/18 06:02 Novolog SC Not Given Q6 [facility] Protocol Montelukast Sodium 10 mg 05/21/18 22:00 05/24/18 21:04 Singulair PO 10 mg HS [facility] Administration Pantoprazole Sodium 40 mg 05/17/18 10:00 05/25/18 09:21 Protonix Inj IVP 40 mg DAILY [facility] Administration Vitamin B Complex/Vit C/Folic Acid 1 tab 05/19/18 08:00 05/25/18 08:50 Nephro-Pancho PO 1 tab 0800 [facility] Administration - Patient Studies Lab Studies: Microbiology Studies 05/19/18 15:55 Blood Culture - Final Blood NO GROWTH AFTER 5 DAYS Gram Stain - Final TEST NOT PERFORMED 05/19/18 16:05 Blood Culture - Final Blood NO GROWTH AFTER 5 DAYS Gram Stain - Final TEST NOT PERFORMED 05/20/18 09:04 Gram Stain - Final Leg - Left Wound Culture - Final No Growth Lab Studies 05/25/18 05/25/18 05/25/18 Range/Units 06:15 06:14 05:20 WBC 16.3 H (4.8-10.8) K/uL RBC 2.65 L (3.80-5.20) Mil/uL Hgb 8.9 L (11.0-16.0) g/dL Hct 27.1 L (34.0-47.0) % MCV 102.2 H (81.0-99.0) fL MCH 33.5 H (27.0-31.0) pg MCHC 32.8 L (33.0-37.0) g/dL RDW 16.4 H (11.5-14.5) % Plt Count 122 L (130-400) K/uL MPV 11.4 (7.2-11.7) fL Neut % (Auto) 92.6 H (50.0-75.0) % Lymph % (Auto) 3.5 L (20.0-40.0) % [place] % (Auto) 3.4 (0.0-10.0) % Eos % (Auto) 0.4 (0.0-4.0) % Baso % (Auto) 0.1 (0.0-2.0) % Neut # (Auto) 15.1 H (1.8-7.0) K/uL Lymph # (Auto) 0.6 L (1.0-4.3) K/uL [place] # (Auto) 0.6 (0.0-0.8) K/uL Eos # (Auto) 0.1 (0.0-0.7) K/uL Baso # (Auto) 0.0 (0.0-0.2) K/uL Neutrophils % (Manual) 94 H (50-75) % Lymphocytes % (Manual) 3 L (20-40) % Monocytes % (Manual) 3 (0-10) % Platelet Estimate Slightly decreased L (NORMAL) Large Platelets Present Poikilocytosis (manual Slight Anisocytosis (manual) Slight Target Cells Slight Puncture Site Rradial pCO2 40 (35-45) mm/Hg pO2 161 H (80-100) mm/Hg HCO3 23.9 (21-28) mmol/L ABG pH 7.38 (7.35-7.45) ABG Total CO2 24.9 (22-28) mmol/L ABG O2 Saturation 97.5 (95-98) % ABG Base Excess -1.3 (-2.0-3.0) mmol/L ABG Hemoglobin 9.9 L (11.7-17.4) g/dL ABG Carboxyhemoglobin 0.3 L (0.5-1.5) % POC ABG HHb (Measured) 2.5 (0.0-5.0) % ABG Methemoglobin 0.8 (0.0-3.0) % Nicolás Test Pos A-a O2 Difference 74.0 mm/Hg Respiratory Index 0.5 Hgb O2 Saturation 96.3 (95.0-98.0) % Vent Mode Prvc Mechanical Rate 15 FiO2 40.0 % Tidal Volume 440 PEEP 5 Sodium 139 (132-148) mmol/L Potassium 3.6 (3.6-5.2) mmol/L Chloride 107 (98-107) mmol/L Carbon Dioxide 22 (22-30) mmol/L Anion Gap 14 (10-20) BUN 74 H (7-17) mg/dL Creatinine 3.2 H (0.7-1.2) mg/dL Est GFR ( Amer) 17 Est GFR (Non-Af Amer) 14 POC Glucose (mg/dL) (65-110) mg/dL Random Glucose 135 H D (65-105) mg/dL Calcium 8.0 L (8.6-10.4) mg/dl Phosphorus 4.3 (2.5-4.5) mg/dL Magnesium 2.2 (1.6-2.3) mg/dL Total Bilirubin 0.7 (0.2-1.3) mg/dL AST 61 H (14-36) U/L ALT 52 (9-52) U/L Alkaline Phosphatase 183 H (38-126) U/L Total Protein 5.1 L (6.3-8.3) g/dL Albumin 2.4 L (3.5-5.0) g/dL Globulin 2.7 (2.2-3.9) gm/dL Albumin/Globulin Ratio 0.9 L (1.0-2.1) 05/25/18 05/24/18 05/24/18 Range/Units 05:17 23:35 17:50 WBC (4.8-10.8) K/uL RBC (3.80-5.20) Mil/uL Hgb (11.0-16.0) g/dL Hct (34.0-47.0) % MCV (81.0-99.0) fL MCH (27.0-31.0) pg MCHC (33.0-37.0) g/dL RDW (11.5-14.5) % Plt Count (130-400) K/uL MPV (7.2-11.7) fL Neut % (Auto) (50.0-75.0) % Lymph % (Auto) (20.0-40.0) % [place] % (Auto) (0.0-10.0) % Eos % (Auto) (0.0-4.0) % Baso % (Auto) (0.0-2.0) % Neut # (Auto) (1.8-7.0) K/uL Lymph # (Auto) (1.0-4.3) K/uL [place] # (Auto) (0.0-0.8) K/uL Eos # (Auto) (0.0-0.7) K/uL Baso # (Auto) (0.0-0.2) K/uL Neutrophils % (Manual) (50-75) % Lymphocytes % (Manual) (20-40) % Monocytes % (Manual) (0-10) % Platelet Estimate (NORMAL) Large Platelets Poikilocytosis (manual Anisocytosis (manual) Target Cells Puncture Site pCO2 (35-45) mm/Hg pO2 (80-100) mm/Hg HCO3 (21-28) mmol/L ABG pH (7.35-7.45) ABG Total CO2 (22-28) mmol/L ABG O2 Saturation (95-98) % ABG Base Excess (-2.0-3.0) mmol/L ABG Hemoglobin (11.7-17.4) g/dL ABG Carboxyhemoglobin (0.5-1.5) % POC ABG HHb (Measured) (0.0-5.0) % ABG Methemoglobin (0.0-3.0) % Nicolás Test A-a O2 Difference mm/Hg Respiratory Index Hgb O2 Saturation (95.0-98.0) % Vent Mode Mechanical Rate FiO2 % Tidal Volume PEEP Sodium (132-148) mmol/L Potassium (3.6-5.2) mmol/L Chloride (98-107) mmol/L Carbon Dioxide (22-30) mmol/L Anion Gap (10-20) BUN (7-17) mg/dL Creatinine (0.7-1.2) mg/dL Est GFR ( Amer) Est GFR (Non-Af Amer) POC Glucose (mg/dL) 135 H 244 H 175 H (65-110) mg/dL Random Glucose (65-105) mg/dL Calcium (8.6-10.4) mg/dl Phosphorus (2.5-4.5) mg/dL Magnesium (1.6-2.3) mg/dL Total Bilirubin (0.2-1.3) mg/dL AST (14-36) U/L ALT (9-52) U/L Alkaline Phosphatase (38-126) U/L Total Protein (6.3-8.3) g/dL Albumin (3.5-5.0) g/dL Globulin (2.2-3.9) gm/dL Albumin/Globulin Ratio (1.0-2.1) Laboratory Results - last 24 hr 05/24/18 05/24/18 05/25/18 17:50 23:35 05:17 WBC RBC Hgb Hct MCV MCH MCHC RDW Plt Count MPV Neut % (Auto) Lymph % (Auto) [place] % (Auto) Eos % (Auto) Baso % (Auto) Neut # (Auto) Lymph # (Auto) [place] # (Auto) Eos # (Auto) Baso # (Auto) Neutrophils % (Manual) Lymphocytes % (Manual) Monocytes % (Manual) Platelet Estimate Large Platelets Poikilocytosis (manual Anisocytosis (manual) Target Cells Puncture Site pCO2 pO2 HCO3 ABG pH ABG Total CO2 ABG O2 Saturation ABG Base Excess ABG Hemoglobin ABG Carboxyhemoglobin POC ABG HHb (Measured) ABG Methemoglobin Nicolás Test A-a O2 Difference Respiratory Index Hgb O2 Saturation Vent Mode Mechanical Rate FiO2 Tidal Volume PEEP Sodium Potassium Chloride Carbon Dioxide Anion Gap BUN Creatinine Est GFR ( Amer) Est GFR (Non-Af Amer) POC Glucose (mg/dL) 175 H 244 H 135 H Random Glucose Calcium Phosphorus Magnesium Total Bilirubin AST ALT Alkaline Phosphatase Total Protein Albumin Globulin Albumin/Globulin Ratio 05/25/18 05/25/18 05/25/18 05:20 06:14 06:15 WBC 16.3 H RBC 2.65 L Hgb 8.9 L Hct 27.1 L MCV 102.2 H MCH 33.5 H MCHC 32.8 L RDW 16.4 H Plt Count 122 L MPV 11.4 Neut % (Auto) 92.6 H Lymph % (Auto) 3.5 L [place] % (Auto) 3.4 Eos % (Auto) 0.4 Baso % (Auto) 0.1 Neut # (Auto) 15.1 H Lymph # (Auto) 0.6 L [place] # (Auto) 0.6 Eos # (Auto) 0.1 Baso # (Auto) 0.0 Neutrophils % (Manual) 94 H Lymphocytes % (Manual) 3 L Monocytes % (Manual) 3 Platelet Estimate Slightly decreased L Large Platelets Present Poikilocytosis (manual Slight Anisocytosis (manual) Slight Target Cells Slight Puncture Site Rradial pCO2 40 pO2 161 H HCO3 23.9 ABG pH 7.38 ABG Total CO2 24.9 ABG O2 Saturation 97.5 ABG Base Excess -1.3 ABG Hemoglobin 9.9 L ABG Carboxyhemoglobin 0.3 L POC ABG HHb (Measured) 2.5 ABG Methemoglobin 0.8 Nicolás Test Pos A-a O2 Difference 74.0 Respiratory Index 0.5 Hgb O2 Saturation 96.3 Vent Mode Prvc Mechanical Rate 15 FiO2 40.0 Tidal Volume 440 PEEP 5 Sodium 139 Potassium 3.6 Chloride 107 Carbon Dioxide 22 Anion Gap 14 BUN 74 H Creatinine 3.2 H Est GFR ( Amer) 17 Est GFR (Non-Af Amer) 14 POC Glucose (mg/dL) Random Glucose 135 H D Calcium 8.0 L Phosphorus 4.3 Magnesium 2.2 Total Bilirubin 0.7 AST 61 H ALT 52 Alkaline Phosphatase 183 H Total Protein 5.1 L Albumin 2.4 L Globulin 2.7 Albumin/Globulin Ratio 0.9 L Radiology Impressions: Radiology Impressions Chest X-Ray 05/24/18 08:00 IMPRESSION: Interval improvement in the pulmonary vascular congestion since the previous exam. Otherwise no significant changes. Chest X-Ray 05/25/18 08:00 IMPRESSION: No interval infiltrates with left base improved aeration. Stable cardiomegaly. Limited pulmonary vascular congestion questioned. Fingerstick Blood Sugar Results: 135 Critical Care Progress Note - Ventilator Checklist Head of Bed 30 Degrees: Yes Daily Sedation Vacation: Yes Daily Assessment of Readiness to Wean: Yes Daily Spontaneous Breathing Trial: Yes PUD Prophalyxis: Yes DVT Prophylaxis: Yes Assessment/Plan - Assessment and Plan (Free Text) Assessment: 72yo F. PMHx CHF, CAD, HTN, hyperlipidemia, hypothyroidism, DM type 2, CKD. p/w cellulitis that has progressed to septic shock, with streptococcal bacteremia and ATN. Started on dialysis (05/17). Extubated (05/20) and reintubated secondary to bradycardia. Plan: Neuro: -Currently intubated. No sedation. Alert and appears oriented. -No gross deficits on exam, cont to monitor Cardio: - Hx CABG, HTN, CHF, HLD - Acute CHF exacerbation- - Dr. Ramires consulted, recs appreciated - Echo 05/15: LV function severely reduced, diffuse hypokinesis. EF 20%. Septum dyskinetic and demonstrates flattening, elevated RV pressure. R ventricle, L and R atria dilated. Severe pulmonary HTN. - Off Dobutamine now - On low dose Dopamine ggt to counteract Bradycardia Pulm: -Intubated on MV -Weaning protocol and CPAP trials as tolerated -Maintain O2 sat > 92% -Bronchodilators -Acute respiratory failure likely 2/2 aspiration of bilious vomit - Empiric antibiotics for Aspiration PNU -Blood cxs growing Group C strep, urine cx growing E.coli GI: -NPO -Glucerna tube feeds -Protonix Heme: -Dr. Duggan consulted for pancytopenia, recs appreciated -Procrit MWF -H/H stable, cont to trend, transfuse prn -Thrombocytopenia stable, cont to trend Renal: -Oliguria, ATN -Dr. Pereira consulted, recs appreciated -HD MWF -[place] d/c'd ID: -Fever 100.5 at on 05/24 -Tx possible aspiration PNA/VAP and UTI as noted above -ID consulted, Dr. Guevara, recs appreciated -Podiatry consulted, Dr. Zhu, for L lower leg cellulitis/blister formation, recs appreciated No acute surgical intervention indicated at this time L Ankle XR: No evid of acute displaced fracture or doslocation. No obvious cortical destructive changes. Diffuse soft tissue swelling and infiltration c/w cellulitis however no evidence of subcutaneous emphysema is identified. -L Foot XR: No gas forming cellulitis. Soft tissue diffuse swelling - compatible with lymphedema and/or cellulitis. No periosteal reaction to suggest osteomyelitis noted. No gross osseous destruction appreciated. Generalized osteopenia and mild diffuse degenerative changes as above. -L tib/fib XR: No evidence of acute displaced fracture nor dislocation. No cortical destruction however does appear to be mild cortical thickening changes inviling the mid lateral fibula that could be reactive although early osteomyelitis not completely excluded. Consider f/u bone scan or MRI. - Repeat Bcx from 05/19 negative to date - Ucx E.Coli (05/16), repeat Ucx negative --Azactam/Clindamycin for empiric coverage Endo: -Hx DM2 -Fingersticks q6h -ISS -Hypoglycemic protocol PPX: - GI ppx Protonix - DVT ppx Heparin SC Pt seen, examined with, and plan discussed with Dr. Wright, attending physician. Eloisa Mensah, PGY2
--- NOTE | 2018-05-25 22:20 | CP.PCM.PN ---
Subjective - Date & Time of Evaluation Date of Evaluation: 05/21/18 Time of Evaluation: 12:00 - Subjective Subjective: Vented Objective - Vital Signs/Intake and Output Vital Signs (last 24 hours): Temp Pulse Resp BP Pulse Ox 97.9 F 105 H 16 111/52 L 100 05/25/18 16:00 05/25/18 19:08 05/25/18 19:08 05/25/18 19:08 05/25/18 19:08 Intake and Output: 05/25/18 05/26/18 18:59 06:59 Intake Total 592.2 4.2 Output Total 0 Balance 592.2 4.2 - Medications Medications: Current Medications Acetaminophen (Tylenol 650mg/20.3ml Solution Ud) 650 mg PO Q6 PRN PRN Reason: Fever >100.4 F or Pain Last Admin: 05/24/18 21:19 Dose: 650 mg Albuterol/Ipratropium (Duoneb 3 Mg/0.5 Mg (3 Ml) Ud) 3 ml INH RQ6 [facility] Last Admin: 05/25/18 14:12 Dose: Not Given Dextrose (Dextrose 50% Inj) 0 ml IV STAT PRN; Protocol PRN Reason: Hypoglycemia Protocol Last Admin: 05/18/18 18:17 Dose: 50 ml Dextrose (Glutose 15) 0 gm PO ONCE PRN; Protocol PRN Reason: Hypoglycemia Protocol Epoetin Anthony (Procrit) 10,000 unit IV MWF [facility] Last Admin: 05/25/18 12:20 Dose: 10,000 unit Ergocalciferol (Drisdol 50,000 Intl Units Cap) 1 cap PO Q7D [facility] Last Admin: 05/25/18 10:05 Dose: 1 cap Ferrous Gluconate (Fergon) 324 mg PO TID [facility] Last Admin: 05/25/18 17:38 Dose: Not Given Glucagon (Glucagen Diagnostic Kit) 0 mg IM STAT PRN; Protocol PRN Reason: Hypoglycemia Protocol Heparin Sodium (Porcine) (Heparin) 5,000 units SC Q8 [facility] Aztreonam 1 gm/ Sodium (Chloride) 100 mls @ 100 mls/hr IVPB Q12H [facility]; Protocol Last Admin: 05/25/18 07:30 Dose: 100 mls/hr Clindamycin Phosphate 600 mg/ (Sodium Chloride) 54 mls @ 100 mls/hr IVPB Q8H [facility]; Protocol Last Admin: 05/25/18 13:06 Dose: 100 mls/hr Dopamine HCl/Dextrose (Dopamine 400mg/250ml D5w) 400 mg in 250 mls @ 4.305 mls/hr IV .Q24H PRN; Protocol PRN Reason: TITRATE PER MD ORDER Last Admin: 05/25/18 13:03 Dose: 2 mcg/kg/min, 4.305 mls/hr Insulin Aspart (Novolog) 0 unit SC Q6 [facility]; Protocol Last Admin: 05/25/18 17:56 Dose: Not Given Montelukast Sodium (Singulair) 10 mg PO HS [facility] Last Admin: 05/24/18 21:04 Dose: 10 mg Pantoprazole Sodium (Protonix Inj) 40 mg IVP DAILY [facility] Last Admin: 05/25/18 09:21 Dose: 40 mg Vitamin B Complex/Vit C/Folic Acid (Nephro-Pancho) 1 tab PO 0800 [facility] Last Admin: 05/25/18 08:50 Dose: 1 tab - Labs Labs: 05/25/18 06:15 05/25/18 06:14 PT 19.8 SECONDS (9.7-12.2) H 05/17/18 06:09 INR 1.8 05/17/18 06:09 APTT 40 SECONDS (21-34) H D 05/17/18 06:09 - Head Exam Head Exam: ATRAUMATIC - Eye Exam Eye Exam: Normal appearance - ENT Exam ENT Exam: Mucous Membranes Dry - Respiratory Exam Respiratory Exam: Decreased Breath Sounds - Cardiovascular Exam Cardiovascular Exam: +S1, +S2 - GI/Abdominal Exam GI & Abdominal Exam: Normal Bowel Sounds Assessment and Plan (1) Thrombocytopenia Assessment & Plan: sepsis cont. to monitor Status: Acute (2) Coagulopathy Assessment & Plan: sepsis nutritional repeat fibrinogen Status: Acute (3) Anemia Assessment & Plan: chronic disease and renal disease DAVID per renal transfusion support PRN Status: Acute
--- NOTE | 2018-05-25 22:22 | CP.PCM.PN ---
Subjective - Date & Time of Evaluation Date of Evaluation: 05/22/18 Time of Evaluation: 19:00 - Subjective Subjective: Vented Objective - Vital Signs/Intake and Output Vital Signs (last 24 hours): Temp Pulse Resp BP Pulse Ox 97.9 F 105 H 16 111/52 L 100 05/25/18 16:00 05/25/18 19:08 05/25/18 19:08 05/25/18 19:08 05/25/18 19:08 Intake and Output: 05/25/18 05/26/18 18:59 06:59 Intake Total 592.2 4.2 Output Total 0 Balance 592.2 4.2 - Medications Medications: Current Medications Acetaminophen (Tylenol 650mg/20.3ml Solution Ud) 650 mg PO Q6 PRN PRN Reason: Fever >100.4 F or Pain Last Admin: 05/24/18 21:19 Dose: 650 mg Albuterol/Ipratropium (Duoneb 3 Mg/0.5 Mg (3 Ml) Ud) 3 ml INH RQ6 [facility] Last Admin: 05/25/18 14:12 Dose: Not Given Dextrose (Dextrose 50% Inj) 0 ml IV STAT PRN; Protocol PRN Reason: Hypoglycemia Protocol Last Admin: 05/18/18 18:17 Dose: 50 ml Dextrose (Glutose 15) 0 gm PO ONCE PRN; Protocol PRN Reason: Hypoglycemia Protocol Epoetin Anthony (Procrit) 10,000 unit IV MWF [facility] Last Admin: 05/25/18 12:20 Dose: 10,000 unit Ergocalciferol (Drisdol 50,000 Intl Units Cap) 1 cap PO Q7D [facility] Last Admin: 05/25/18 10:05 Dose: 1 cap Ferrous Gluconate (Fergon) 324 mg PO TID [facility] Last Admin: 05/25/18 17:38 Dose: Not Given Glucagon (Glucagen Diagnostic Kit) 0 mg IM STAT PRN; Protocol PRN Reason: Hypoglycemia Protocol Heparin Sodium (Porcine) (Heparin) 5,000 units SC Q8 [facility] Aztreonam 1 gm/ Sodium (Chloride) 100 mls @ 100 mls/hr IVPB Q12H [facility]; Protocol Last Admin: 05/25/18 07:30 Dose: 100 mls/hr Clindamycin Phosphate 600 mg/ (Sodium Chloride) 54 mls @ 100 mls/hr IVPB Q8H [facility]; Protocol Last Admin: 05/25/18 13:06 Dose: 100 mls/hr Dopamine HCl/Dextrose (Dopamine 400mg/250ml D5w) 400 mg in 250 mls @ 4.305 mls/hr IV .Q24H PRN; Protocol PRN Reason: TITRATE PER MD ORDER Last Admin: 05/25/18 13:03 Dose: 2 mcg/kg/min, 4.305 mls/hr Insulin Aspart (Novolog) 0 unit SC Q6 [facility]; Protocol Last Admin: 05/25/18 17:56 Dose: Not Given Montelukast Sodium (Singulair) 10 mg PO HS [facility] Last Admin: 05/24/18 21:04 Dose: 10 mg Pantoprazole Sodium (Protonix Inj) 40 mg IVP DAILY [facility] Last Admin: 05/25/18 09:21 Dose: 40 mg Vitamin B Complex/Vit C/Folic Acid (Nephro-Pancho) 1 tab PO 0800 [facility] Last Admin: 05/25/18 08:50 Dose: 1 tab - Labs Labs: 05/25/18 06:15 05/25/18 06:14 PT 19.8 SECONDS (9.7-12.2) H 05/17/18 06:09 INR 1.8 05/17/18 06:09 APTT 40 SECONDS (21-34) H D 05/17/18 06:09 - Head Exam Head Exam: ATRAUMATIC - Eye Exam Eye Exam: Normal appearance - ENT Exam ENT Exam: Mucous Membranes Dry - Respiratory Exam Respiratory Exam: Decreased Breath Sounds - Cardiovascular Exam Cardiovascular Exam: +S1, +S2 - GI/Abdominal Exam GI & Abdominal Exam: Normal Bowel Sounds Assessment and Plan (1) Thrombocytopenia Assessment & Plan: improving sepsis cont. to monitor Status: Acute (2) Coagulopathy Assessment & Plan: sepsis nutritional Status: Acute (3) Anemia Assessment & Plan: chronic disease and renal disease DAVID per renal transfusion support PRN Status: Acute
--- NOTE | 2018-05-25 22:23 | CP.PCM.PN ---
Subjective - Date & Time of Evaluation Date of Evaluation: 05/23/18 Time of Evaluation: 16:00 - Subjective Subjective: Vented Objective - Vital Signs/Intake and Output Vital Signs (last 24 hours): Temp Pulse Resp BP Pulse Ox 97.9 F 105 H 16 111/52 L 100 05/25/18 16:00 05/25/18 19:08 05/25/18 19:08 05/25/18 19:08 05/25/18 19:08 Intake and Output: 05/25/18 05/26/18 18:59 06:59 Intake Total 592.2 4.2 Output Total 0 Balance 592.2 4.2 - Medications Medications: Current Medications Acetaminophen (Tylenol 650mg/20.3ml Solution Ud) 650 mg PO Q6 PRN PRN Reason: Fever >100.4 F or Pain Last Admin: 05/24/18 21:19 Dose: 650 mg Albuterol/Ipratropium (Duoneb 3 Mg/0.5 Mg (3 Ml) Ud) 3 ml INH RQ6 [facility] Last Admin: 05/25/18 14:12 Dose: Not Given Dextrose (Dextrose 50% Inj) 0 ml IV STAT PRN; Protocol PRN Reason: Hypoglycemia Protocol Last Admin: 05/18/18 18:17 Dose: 50 ml Dextrose (Glutose 15) 0 gm PO ONCE PRN; Protocol PRN Reason: Hypoglycemia Protocol Epoetin Anthony (Procrit) 10,000 unit IV MWF [facility] Last Admin: 05/25/18 12:20 Dose: 10,000 unit Ergocalciferol (Drisdol 50,000 Intl Units Cap) 1 cap PO Q7D [facility] Last Admin: 05/25/18 10:05 Dose: 1 cap Ferrous Gluconate (Fergon) 324 mg PO TID [facility] Last Admin: 05/25/18 17:38 Dose: Not Given Glucagon (Glucagen Diagnostic Kit) 0 mg IM STAT PRN; Protocol PRN Reason: Hypoglycemia Protocol Heparin Sodium (Porcine) (Heparin) 5,000 units SC Q8 [facility] Aztreonam 1 gm/ Sodium (Chloride) 100 mls @ 100 mls/hr IVPB Q12H [facility]; Protocol Last Admin: 05/25/18 07:30 Dose: 100 mls/hr Clindamycin Phosphate 600 mg/ (Sodium Chloride) 54 mls @ 100 mls/hr IVPB Q8H [facility]; Protocol Last Admin: 05/25/18 13:06 Dose: 100 mls/hr Dopamine HCl/Dextrose (Dopamine 400mg/250ml D5w) 400 mg in 250 mls @ 4.305 mls/hr IV .Q24H PRN; Protocol PRN Reason: TITRATE PER MD ORDER Last Admin: 05/25/18 13:03 Dose: 2 mcg/kg/min, 4.305 mls/hr Insulin Aspart (Novolog) 0 unit SC Q6 [facility]; Protocol Last Admin: 05/25/18 17:56 Dose: Not Given Montelukast Sodium (Singulair) 10 mg PO HS [facility] Last Admin: 05/24/18 21:04 Dose: 10 mg Pantoprazole Sodium (Protonix Inj) 40 mg IVP DAILY [facility] Last Admin: 05/25/18 09:21 Dose: 40 mg Vitamin B Complex/Vit C/Folic Acid (Nephro-Pancho) 1 tab PO 0800 LAURENCE Last Admin: 05/25/18 08:50 Dose: 1 tab - Labs Labs: 05/25/18 06:15 05/25/18 06:14 PT 19.8 SECONDS (9.7-12.2) H 05/17/18 06:09 INR 1.8 05/17/18 06:09 APTT 40 SECONDS (21-34) H D 05/17/18 06:09 - Head Exam Head Exam: ATRAUMATIC - Eye Exam Eye Exam: Normal appearance - ENT Exam ENT Exam: Mucous Membranes Dry - Respiratory Exam Respiratory Exam: Decreased Breath Sounds - Cardiovascular Exam Cardiovascular Exam: +S1, +S2 - GI/Abdominal Exam GI & Abdominal Exam: Normal Bowel Sounds Assessment and Plan (1) Thrombocytopenia Assessment & Plan: improving sepsis cont. to monitor Status: Acute (2) Coagulopathy Assessment & Plan: nutritional sepsis Status: Acute (3) Anemia Assessment & Plan: chronic disease and renal disease DAVID per renal transfusion support PRN Status: Acute
--- NOTE | 2018-05-25 22:24 | CP.PCM.PN ---
Subjective - Date & Time of Evaluation Date of Evaluation: 05/25/18 Time of Evaluation: 20:00 - Subjective Subjective: Vented Objective - Vital Signs/Intake and Output Vital Signs (last 24 hours): Temp Pulse Resp BP Pulse Ox 97.9 F 105 H 16 111/52 L 100 05/25/18 16:00 05/25/18 19:08 05/25/18 19:08 05/25/18 19:08 05/25/18 19:08 Intake and Output: 05/25/18 05/26/18 18:59 06:59 Intake Total 592.2 4.2 Output Total 0 Balance 592.2 4.2 - Medications Medications: Current Medications Acetaminophen (Tylenol 650mg/20.3ml Solution Ud) 650 mg PO Q6 PRN PRN Reason: Fever >100.4 F or Pain Last Admin: 05/24/18 21:19 Dose: 650 mg Albuterol/Ipratropium (Duoneb 3 Mg/0.5 Mg (3 Ml) Ud) 3 ml INH RQ6 [facility] Last Admin: 05/25/18 14:12 Dose: Not Given Dextrose (Dextrose 50% Inj) 0 ml IV STAT PRN; Protocol PRN Reason: Hypoglycemia Protocol Last Admin: 05/18/18 18:17 Dose: 50 ml Dextrose (Glutose 15) 0 gm PO ONCE PRN; Protocol PRN Reason: Hypoglycemia Protocol Epoetin Anthony (Procrit) 10,000 unit IV MWF [facility] Last Admin: 05/25/18 12:20 Dose: 10,000 unit Ergocalciferol (Drisdol 50,000 Intl Units Cap) 1 cap PO Q7D [facility] Last Admin: 05/25/18 10:05 Dose: 1 cap Ferrous Gluconate (Fergon) 324 mg PO TID [facility] Last Admin: 05/25/18 17:38 Dose: Not Given Glucagon (Glucagen Diagnostic Kit) 0 mg IM STAT PRN; Protocol PRN Reason: Hypoglycemia Protocol Heparin Sodium (Porcine) (Heparin) 5,000 units SC Q8 [facility] Aztreonam 1 gm/ Sodium (Chloride) 100 mls @ 100 mls/hr IVPB Q12H [facility]; Protocol Last Admin: 05/25/18 07:30 Dose: 100 mls/hr Clindamycin Phosphate 600 mg/ (Sodium Chloride) 54 mls @ 100 mls/hr IVPB Q8H [facility]; Protocol Last Admin: 05/25/18 13:06 Dose: 100 mls/hr Dopamine HCl/Dextrose (Dopamine 400mg/250ml D5w) 400 mg in 250 mls @ 4.305 mls/hr IV .Q24H PRN; Protocol PRN Reason: TITRATE PER MD ORDER Last Admin: 05/25/18 13:03 Dose: 2 mcg/kg/min, 4.305 mls/hr Insulin Aspart (Novolog) 0 unit SC Q6 [facility]; Protocol Last Admin: 05/25/18 17:56 Dose: Not Given Montelukast Sodium (Singulair) 10 mg PO HS [facility] Last Admin: 05/24/18 21:04 Dose: 10 mg Pantoprazole Sodium (Protonix Inj) 40 mg IVP DAILY [facility] Last Admin: 05/25/18 09:21 Dose: 40 mg Vitamin B Complex/Vit C/Folic Acid (Nephro-Pancho) 1 tab PO 0800 [facility] Last Admin: 05/25/18 08:50 Dose: 1 tab - Labs Labs: 05/25/18 06:15 05/25/18 06:14 PT 19.8 SECONDS (9.7-12.2) H 05/17/18 06:09 INR 1.8 05/17/18 06:09 APTT 40 SECONDS (21-34) H D 05/17/18 06:09 - Head Exam Head Exam: ATRAUMATIC - Eye Exam Eye Exam: Normal appearance - ENT Exam ENT Exam: Mucous Membranes Dry - Respiratory Exam Respiratory Exam: Decreased Breath Sounds - Cardiovascular Exam Cardiovascular Exam: +S1, +S2 - GI/Abdominal Exam GI & Abdominal Exam: Normal Bowel Sounds Assessment and Plan (1) Thrombocytopenia Assessment & Plan: improving sepsis cont. to monitor Status: Acute (2) Coagulopathy Assessment & Plan: sepsis nutritional Status: Acute (3) Anemia Assessment & Plan: chronic disease and renal disease DAVID per renal transfusion support PRN Status: Acute
--- NOTE | 2018-05-25 23:35 | CP.PCM.PCO ---
Addendum Addendum: 05/25/18 23:33 patient became bradycardic and then in PEA x3 CPR performed and resuscitated
[2018-05-25] MEDS ORDERED: Sodium Bicarbonate 8.4% 150 MEQ in Dextrose 5% In Water 1,000 ML IV SCH (23:45)
[2018-05-26] MEDS: (Novolog) Insulin Aspart, Recombinant 100 u/ml 10 ml vial SC SCH ×4 (00:05→18:09)
[2018-05-26 06:37] LABS: BASO % 0.2 % (0.0-2.0); EOS # 0.1 K/uL (0.0-0.7); EOS % 0.5 % (0.0-4.0); HEMOGLOBIN 9.3 g/dL (11.0-16.0); LYMPH # 0.6 K/uL (1.0-4.3); LYMPH % 4.1 % (20.0-40.0); MEAN CELL VOLUME 103.3 fL (81.0-99.0); MEAN CORPUSCULAR HEMOGLOBIN 33.5 pg (27.0-31.0); MEAN CORPUSCULAR HGB CONC 32.4 g/dL (33.0-37.0); MONO # 0.6 K/uL (0.0-0.8); MONO % 3.9 % (0.0-10.0); NEUT # 13.2 K/uL (1.8-7.0); NEUT % 91.3 % (50.0-75.0); NRBC % 0.4 % (0.0-2.0); PLATELET COUNT 129 K/uL (130-400); RBC 2.79 Mil/uL (3.80-5.20); RED CELL DISTRIBUTION WIDTH 16.2 % (11.5-14.5); WHITE BLOOD COUNT 14.4 K/uL (4.8-10.8)
[2018-05-26 07:02] LABS: ALBUMIN 2.6 g/dL (3.5-5.0); CALCIUM 7.8 mg/dl (8.6-10.4)
[2018-05-26] MEDS: Aztreonam 1 GM in Sodium Chloride 0.9% 100 ML IVPB SCH ×2 (08:05→20:00)
[2018-05-26 08:32] LABS: BANDS 1 % (0-2); EOSINOPHIL 1 % (0-4); LYMPHOCYTE 4 % (20-40); MONOCYTE 4 % (0-10); NEUTROPHIL 90 % (50-75); NUCLEATED RED BLOOD CELL 3 % (0-0); PLATELET ESTIMATE SLIGHTLY DECREASED (NORMAL); TOTAL CELLS COUNTED 100
[2018-05-26 08:33] LABS: ANISOCYTOSIS SLIGHT; HYPOCHROMIC SLIGHT; POIKILOCYTOSIS SLIGHT
[2018-05-26 08:35] LABS: POLYCHROMIC SLIGHT
[2018-05-26] MEDS: Multivitamin Vitamin B Complex (Nephro-Vite) Tab PO SCH (10:49)
--- NOTE | 2018-05-26 10:53 | CP.PCM.CON ---
History of Present Illness - History of Present Illness History of Present Illness: Vascular Surgeryconsult for Dr. Luna 72 F with PMH of CAD, CHF, Diabetes, HTN, CABG presented to [facility] intially for Lower extremity pain. Patient developed hypotension and eventually respiratory failure then was subsequently intubated and recently extubated. During her hospital stay patient has developed ATN, Nephrology on board. She has been recieving HD via Shiley catheter but is likely to need cotinued HD. For this reason consult was placed for Permacath. PMH: CAD, CHF, DM PSH: CABG ALL: PCN Review of Systems - Review of Systems All systems: reviewed and no additional remarkable complaints except (as per HPI) Past Patient History - Past Medical History & Family History Past Medical History?: Yes - Past Social History Smoking Status: Never Smoked - CARDIAC Hx Congestive Heart Failure: Yes Hx Hypertension: Yes - ENDOCRINE/METABOLIC Hx Endocrine Disorders: Yes Hx Diabetes Mellitus Type 2: Yes - MUSCULOSKELETAL/RHEUMATOLOGICAL Hx Falls: Yes - PSYCHIATRIC Hx Substance Use: No - SURGICAL HISTORY Hx Coronary Artery Bypass Graft: Yes - ANESTHESIA Hx Anesthesia: Yes Has any member of the family had a problem w/ anesthesia?: No Meds Allergies/Adverse Reactions: Allergies Allergy/AdvReac Type Severity Reaction Status Date / Time Penicillins Allergy Verified 05/15/18 11:34 - Medications Medications: Current Medications Acetaminophen (Tylenol 650mg/20.3ml Solution Ud) 650 mg PO Q6 PRN PRN Reason: Fever >100.4 F or Pain Last Admin: 05/24/18 21:19 Dose: 650 mg Albuterol/Ipratropium (Duoneb 3 Mg/0.5 Mg (3 Ml) Ud) 3 ml INH RQ6 [facility] Last Admin: 05/25/18 14:12 Dose: Not Given Dextrose (Dextrose 50% Inj) 0 ml IV STAT PRN; Protocol PRN Reason: Hypoglycemia Protocol Last Admin: 05/18/18 18:17 Dose: 50 ml Dextrose (Glutose 15) 0 gm PO ONCE PRN; Protocol PRN Reason: Hypoglycemia Protocol Epoetin Anthony (Procrit) 10,000 unit IV MWF [facility] [place] Last Admin: 05/25/18 12:20 Dose: 10,000 unit Ergocalciferol (Drisdol 50,000 Intl Units Cap) 1 cap PO Q7D [facility] [place] Last Admin: 05/25/18 10:05 Dose: 1 cap Ferrous Gluconate (Fergon) 324 mg PO TID [facility] [place] Last Admin: 05/26/18 10:49 Dose: 324 mg Glucagon (Glucagen Diagnostic Kit) 0 mg IM STAT PRN; Protocol PRN Reason: Hypoglycemia Protocol Heparin Sodium (Porcine) (Heparin) 5,000 units SC Q8 [facility] [place] Last Admin: 05/26/18 05:21 Dose: 5,000 units Aztreonam 1 gm/ Sodium (Chloride) 100 mls @ 100 mls/hr IVPB Q12H [facility]; Protocol Last Admin: 05/26/18 08:05 Dose: 100 mls/hr Clindamycin Phosphate 600 mg/ (Sodium Chloride) 54 mls @ 100 mls/hr IVPB Q8H [facility]; Protocol Last Admin: 05/26/18 05:21 Dose: 100 mls/hr Dopamine HCl/Dextrose (Dopamine 400mg/250ml D5w) 400 mg in 250 mls @ 4.305 mls/hr IV .Q24H PRN; Protocol PRN Reason: TITRATE PER MD ORDER Last Titration: 05/26/18 10:30 Dose: 0 mcg/kg/min, 0 mls/hr Insulin Aspart (Novolog) 0 unit SC Q6 [facility] [place]; Protocol Last Admin: 05/26/18 06:08 Dose: Not Given Montelukast Sodium (Singulair) 10 mg PO HS [facility] [place] Last Admin: 05/25/18 23:00 Dose: 10 mg Pantoprazole Sodium (Protonix Inj) 40 mg IVP DAILY [facility] [place] Last Admin: 05/26/18 10:49 Dose: 40 mg Vitamin B Complex/Vit C/Folic Acid (Nephro-Pancho) 1 tab PO 0800 [facility] [place] Last Admin: 05/26/18 10:49 Dose: 1 tab Physical Exam - Constitutional Appears: Non-toxic, No Acute Distress, Chronically Ill - Head Exam Head Exam: ATRAUMATIC, NORMOCEPHALIC - Eye Exam Eye Exam: EOMI - ENT Exam ENT Exam: Mucous Membranes Moist Additional comments: right Shiley dialysis catheter in place - Respiratory Exam Respiratory Exam: NORMAL BREATHING PATTERN - Cardiovascular Exam Cardiovascular Exam: Tachycardia, REGULAR RHYTHM - GI/Abdominal Exam GI & Abdominal Exam: Soft. absent: Guarding, Tenderness - Extremities Exam Extremities exam: Positive for: calf tenderness, pedal edema - Neurological Exam Neurological exam: Alert, Oriented x3 - Psychiatric Exam Psychiatric exam: Normal Affect, Normal Mood - Skin Skin Exam: Dry, Intact, Normal Color, Warm Results - Vital Signs Recent Vital Signs: Last Vital Signs Temp 97.5 F L 05/26/18 04:00 Pulse 104 H 05/26/18 08:29 Resp 13 05/26/18 08:29 BP 129/57 L 05/26/18 08:29 Pulse Ox 61 L 05/26/18 08:29 - Labs Result Diagrams: 05/27/18 05:54 05/27/18 05:52 Labs: Laboratory Results - last 24 hr 05/25/18 05/25/18 05/26/18 18:06 23:27 06:20 WBC 14.4 H RBC 2.79 L Hgb 9.3 L Hct 28.8 L MCV 103.3 H MCH 33.5 H MCHC 32.4 L RDW 16.2 H Plt Count 129 L MPV 11.0 Neut % (Auto) 91.3 H Lymph % (Auto) 4.1 L Haines % (Auto) 3.9 Eos % (Auto) 0.5 Baso % (Auto) 0.2 Neut # (Auto) 13.2 H Lymph # (Auto) 0.6 L Haines # (Auto) 0.6 Eos # (Auto) 0.1 Baso # (Auto) 0.0 Neutrophils % (Manual) 90 H Band Neutrophils % 1 Lymphocytes % (Manual) 4 L Monocytes % (Manual) 4 Eosinophils % (Manual) 1 Nucleated RBC % 3 H Platelet Estimate Slightly decreased L Polychromasia Slight Hypochromasia (manual) Slight Poikilocytosis (manual Slight Anisocytosis (manual) Slight Macrocytosis (manual) Slight Sodium Potassium Chloride Carbon Dioxide Anion Gap BUN Creatinine Est GFR ( Amer) Est GFR (Non-Af Amer) POC Glucose (mg/dL) 112 H 161 H Random Glucose Calcium Phosphorus Magnesium Total Bilirubin AST ALT Alkaline Phosphatase Total Protein Albumin Globulin Albumin/Globulin Ratio 05/26/18 06:20 WBC RBC Hgb Hct MCV MCH MCHC RDW Plt Count MPV Neut % (Auto) Lymph % (Auto) Haines % (Auto) Eos % (Auto) Baso % (Auto) Neut # (Auto) Lymph # (Auto) Haines # (Auto) Eos # (Auto) Baso # (Auto) Neutrophils % (Manual) Band Neutrophils % Lymphocytes % (Manual) Monocytes % (Manual) Eosinophils % (Manual) Nucleated RBC % Platelet Estimate Polychromasia Hypochromasia (manual) Poikilocytosis (manual Anisocytosis (manual) Macrocytosis (manual) Sodium 137 Potassium 3.7 Chloride 102 Carbon Dioxide 29 Anion Gap 10 BUN 45 H Creatinine 2.3 H Est GFR ( Amer) 25 Est GFR (Non-Af Amer) 21 POC Glucose (mg/dL) Random Glucose 143 H Calcium 7.8 L Phosphorus 4.8 H Magnesium 2.0 Total Bilirubin 0.9 AST 33 ALT 44 Alkaline Phosphatase 171 H Total Protein 5.0 L Albumin 2.6 L Globulin 2.5 Albumin/Globulin Ratio 1.0 Assessment & Plan - Assessment and Plan (Free Text) Assessment: 72 yr old female with ATN and need for continued HD Plan: - medical optimization prior to surgery - will reassess tomorrow for readinesss for OR - possible Permacath placement 05/27 - discussed with Dr. Luna, further recs per him Vera Garcia, PGY 1 - Date & Time Date: 05/26/18 Time: 10:35
--- NOTE | 2018-05-26 11:13 | CP.PCM.PN ---
Subjective - Date & Time of Evaluation Date of Evaluation: 05/26/18 Time of Evaluation: 11:12 - Subjective Subjective: Nephrology Follow up Note HPI: 72-year-old female with a history of CHF, CAD, hypertension, hyperlipidemia, history of thyroid disease and renal disease, patient admitted to the hospital with a complaining of left lower extremity pain swelling of one day duration along with fever, followed by code sepsis, hypotension leading to resp distress and current intubation. Hx is obtained from charts. currrently intubated on pressors unknown baseline kidney disease, cr is now 3.1 UOP 10-15 cc per hour. on iv fluids and pressors Past medical history: Had a history of congestive heart failure, coronary artery disease, diabetes, hypertension, hypothyroidism, renal insufficiency. Patient has allergic to penicillin Surgical history include coronary artery bypass grafting x2 Social history: No smoking or drinking history noted Family history significant for diabetes and heart disease Medications at this time not available. 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 extubated 05/25/18 she feels better. denies SOB On examination: Patient is currently extubated. Off ventilator. Chest B/L air entry improved Heart sounds are regular s1s2 normal Abdomen soft non tender. edema ++ feets better in terms of edema awake calm Left lower extremity erythema, blisters, and swelling noted Assesment: stable oligoanuric ARRON likely ATN/septic shock with cellulitis and ? 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 to plan for permacath placement, consulted vascular surgery. SW consult for outpt HD placement. maintain hemodynamics stable. Avoid hypotension. Patient not on ACEI/ARB due to recent ARRON Monitor Input/Output, daily weights and renal function with basic metabolic pa flores c/w Iron, MVI. PRBC as needed. epogen ordered supplement Vit D dose vanco by level. supplement lytes as needed. Dose meds/antibiotics for reduced GFR. Avoid fleets enema/magnesium based laxatives. Avoid nephrotoxins/NSAIDs/ iodinated contrast (unless needed emergently) Glycemic control Further work up/management as per primary team Thanks for allowing me to participate in care of your patient. Will follow patient with you. Please call if any Qs. had d/w team and family Dr Edin Castro Office: [phone] Objective - Vital Signs/Intake and Output Vital Signs (last 24 hours): Temp Pulse Resp BP Pulse Ox 97.5 F L 104 H 13 129/57 L 61 L 05/26/18 04:00 05/26/18 08:29 05/26/18 08:29 05/26/18 08:29 05/26/18 08:29 Intake and Output: 05/26/18 05/26/18 06:59 18:59 Intake Total 200.4 63.4 Output Total 0 0 Balance 200.4 63.4 - Medications Medications: Current Medications Acetaminophen (Tylenol 650mg/20.3ml Solution Ud) 650 mg PO Q6 PRN PRN Reason: Fever >100.4 F or Pain Last Admin: 05/24/18 21:19 Dose: 650 mg Albuterol/Ipratropium (Duoneb 3 Mg/0.5 Mg (3 Ml) Ud) 3 ml INH RQ6 [facility] Last Admin: 05/25/18 14:12 Dose: Not Given Dextrose (Dextrose 50% Inj) 0 ml IV STAT PRN; Protocol PRN Reason: Hypoglycemia Protocol Last Admin: 05/18/18 18:17 Dose: 50 ml Dextrose (Glutose 15) 0 gm PO ONCE PRN; Protocol PRN Reason: Hypoglycemia Protocol Epoetin Anthony (Procrit) 10,000 unit IV MWF [facility] Last Admin: 05/25/18 12:20 Dose: 10,000 unit Ergocalciferol (Drisdol 50,000 Intl Units Cap) 1 cap PO Q7D [facility] Last Admin: 05/25/18 10:05 Dose: 1 cap Ferrous Gluconate (Fergon) 324 mg PO TID [facility] Last Admin: 05/26/18 10:49 Dose: 324 mg Glucagon (Glucagen Diagnostic Kit) 0 mg IM STAT PRN; Protocol PRN Reason: Hypoglycemia Protocol Heparin Sodium (Porcine) (Heparin) 5,000 units SC Q8 [facility] Last Admin: 05/26/18 05:21 Dose: 5,000 units Aztreonam 1 gm/ Sodium (Chloride) 100 mls @ 100 mls/hr IVPB Q12H [facility]; Protocol Last Admin: 05/26/18 08:05 Dose: 100 mls/hr Clindamycin Phosphate 600 mg/ (Sodium Chloride) 54 mls @ 100 mls/hr IVPB Q8H [facility]; Protocol Last Admin: 05/26/18 05:21 Dose: 100 mls/hr Dopamine HCl/Dextrose (Dopamine 400mg/250ml D5w) 400 mg in 250 mls @ 4.305 mls/hr IV .Q24H PRN; Protocol PRN Reason: TITRATE PER MD ORDER Last Titration: 05/26/18 10:30 Dose: 0 mcg/kg/min, 0 mls/hr Insulin Aspart (Novolog) 0 unit SC Q6 [facility]; Protocol Last Admin: 05/26/18 06:08 Dose: Not Given Montelukast Sodium (Singulair) 10 mg PO HS [facility] Last Admin: 05/25/18 23:00 Dose: 10 mg Pantoprazole Sodium (Protonix Inj) 40 mg IVP DAILY [facility] Last Admin: 05/26/18 10:49 Dose: 40 mg Vitamin B Complex/Vit C/Folic Acid (Nephro-Pancho) 1 tab PO 0800 [facility] Last Admin: 05/26/18 10:49 Dose: 1 tab - Labs Labs: 05/26/18 06:20 05/26/18 06:20 PT 19.8 SECONDS (9.7-12.2) H 05/17/18 06:09 INR 1.8 05/17/18 06:09 APTT 40 SECONDS (21-34) H D 05/17/18 06:09
--- NOTE | 2018-05-26 11:48 | RAD ---
Date of service: 05/26/2018 HISTORY: s/p extubation COMPARISON: 05/25/2018 TECHNIQUE: 1 view obtained. FINDINGS: LUNGS: No active pulmonary disease. PLEURA: No significant pleural effusion identified, no pneumothorax apparent. CARDIOVASCULAR: No aortic atherosclerotic calcification present. Normal cardiac size. Sternotomy wires. OSSEOUS STRUCTURES: No significant abnormalities. VISUALIZED UPPER ABDOMEN: Normal. OTHER FINDINGS: None. IMPRESSION: No acute infiltrate.
[2018-05-26] MEDS ORDERED: Lidocaine 5% Patch TD ONE (12:00)
--- NOTE | 2018-05-26 12:39 | CP.PCM.PN ---
Subjective - Date & Time of Evaluation Date of Evaluation: 05/26/18 Time of Evaluation: 08:00 - Subjective Subjective: extubated awake alert afebrile Objective - Vital Signs/Intake and Output Vital Signs (last 24 hours): Temp Pulse Resp BP Pulse Ox 98.2 F 95 H 12 128/57 L 4 L 05/26/18 12:00 05/26/18 11:28 05/26/18 11:28 05/26/18 11:28 05/26/18 12:00 Intake and Output: 05/26/18 05/26/18 06:59 18:59 Intake Total 200.4 67.6 Output Total 0 0 Balance 200.4 67.6 - Medications Medications: Current Medications Acetaminophen (Tylenol 650mg/20.3ml Solution Ud) 650 mg PO Q6 PRN PRN Reason: Fever >100.4 F or Pain Last Admin: 05/24/18 21:19 Dose: 650 mg Albuterol/Ipratropium (Duoneb 3 Mg/0.5 Mg (3 Ml) Ud) 3 ml INH RQ6 [facility] Last Admin: 05/25/18 14:12 Dose: Not Given Dextrose (Dextrose 50% Inj) 0 ml IV STAT PRN; Protocol PRN Reason: Hypoglycemia Protocol Last Admin: 05/18/18 18:17 Dose: 50 ml Dextrose (Glutose 15) 0 gm PO ONCE PRN; Protocol PRN Reason: Hypoglycemia Protocol Epoetin Anthony (Procrit) 10,000 unit IV MWF [facility] Last Admin: 05/25/18 12:20 Dose: 10,000 unit Ergocalciferol (Drisdol 50,000 Intl Units Cap) 1 cap PO Q7D [facility] Last Admin: 05/25/18 10:05 Dose: 1 cap Ferrous Gluconate (Fergon) 324 mg PO TID [facility] Last Admin: 05/26/18 10:49 Dose: 324 mg Glucagon (Glucagen Diagnostic Kit) 0 mg IM STAT PRN; Protocol PRN Reason: Hypoglycemia Protocol Heparin Sodium (Porcine) (Heparin) 5,000 units SC Q8 [facility] Last Admin: 05/26/18 05:21 Dose: 5,000 units Aztreonam 1 gm/ Sodium (Chloride) 100 mls @ 100 mls/hr IVPB Q12H [facility]; Protocol Last Admin: 05/26/18 08:05 Dose: 100 mls/hr Clindamycin Phosphate 600 mg/ (Sodium Chloride) 54 mls @ 100 mls/hr IVPB Q8H [facility]; Protocol Last Admin: 05/26/18 05:21 Dose: 100 mls/hr Dopamine HCl/Dextrose (Dopamine 400mg/250ml D5w) 400 mg in 250 mls @ 4.305 mls/hr IV .Q24H PRN; Protocol PRN Reason: TITRATE PER MD ORDER Last Titration: 05/26/18 10:30 Dose: 0 mcg/kg/min, 0 mls/hr Insulin Aspart (Novolog) 0 unit SC Q6 [facility]; Protocol Last Admin: 05/26/18 06:08 Dose: Not Given Montelukast Sodium (Singulair) 10 mg PO HS [facility] Last Admin: 05/25/18 23:00 Dose: 10 mg Pantoprazole Sodium (Protonix Inj) 40 mg IVP DAILY [facility] Last Admin: 05/26/18 10:49 Dose: 40 mg Vitamin B Complex/Vit C/Folic Acid (Nephro-Pancho) 1 tab PO 0800 [facility] Last Admin: 05/26/18 10:49 Dose: 1 tab - Labs Labs: 05/26/18 06:20 05/26/18 06:20 PT 19.8 SECONDS (9.7-12.2) H 05/17/18 06:09 INR 1.8 05/17/18 06:09 APTT 40 SECONDS (21-34) H D 05/17/18 06:09 - Constitutional Appears: No Acute Distress, Cachectic, Chronically Ill - Head Exam Head Exam: ATRAUMATIC, NORMAL INSPECTION, NORMOCEPHALIC - Eye Exam Eye Exam: EOMI, Normal appearance, PERRL Pupil Exam: NORMAL ACCOMODATION, PERRL - ENT Exam ENT Exam: Mucous Membranes Moist, Normal Exam - Neck Exam Neck Exam: Full ROM, Normal Inspection. absent: Lymphadenopathy - Respiratory Exam Respiratory Exam: Decreased Breath Sounds, Prolonged Expiratory Phase - Cardiovascular Exam Cardiovascular Exam: REGULAR RHYTHM, +S1, +S2. absent: Murmur - GI/Abdominal Exam GI & Abdominal Exam: Soft, Normal Bowel Sounds. absent: Tenderness - Rectal Exam Rectal Exam: Deferred - Exam Exam: NORMAL INSPECTION - Extremities Exam Extremities Exam: Full ROM, Normal Capillary Refill, Normal Inspection. absent: Joint Swelling, Pedal Edema - Back Exam Back Exam: NORMAL INSPECTION - Neurological Exam Neurological Exam: Alert, Awake, CN II-XII Intact. absent: Normal Gait, Oriented x3 - Psychiatric Exam Psychiatric exam: Depressed - Skin Skin Exam: Dry, Intact Additional comments: less swelling lower extyremities cellulitis improved Assessment and Plan (1) Multi-organ system dysfunction Status: Acute (2) Septic shock Status: Acute (3) Cellulitis of left lower extremity Status: Acute (4) Coagulopathy Status: Acute (5) Pancytopenia Status: Acute (6) Sepsis Status: Acute (7) Respiratory failure requiring intubation Status: Acute (8) Respiratory failure with hypoxia and hypercapnia Status: Acute (9) ARRON (acute kidney injury) Status: Acute - Assessment and Plan (Free Text) Assessment: cont iv rx for 14 days s/p septic shock
--- NOTE | 2018-05-26 13:23 | CP.PCM.PN ---
Subjective - Date & Time of Evaluation Date of Evaluation: 05/26/18 Time of Evaluation: 13:21 - Subjective Subjective: Podiatry Progress Note for Dr. Zhu 72F seen and evaluated at bedside for b/l leg swelling with drained serous liquid filled bullae of left leg. Patient is extubated at this time. Per nursing, no acute overnight events. Patient is awake and alert. Objective - Vital Signs/Intake and Output Vital Signs (last 24 hours): Temp Pulse Resp BP Pulse Ox 98.2 F 95 H 12 128/57 L 4 L 05/26/18 12:00 05/26/18 11:28 05/26/18 11:28 05/26/18 11:28 05/26/18 12:00 Intake and Output: 05/26/18 05/26/18 06:59 18:59 Intake Total 200.4 67.6 Output Total 0 0 Balance 200.4 67.6 - Medications Medications: Current Medications Acetaminophen (Tylenol 650mg/20.3ml Solution Ud) 650 mg PO Q6 PRN PRN Reason: Fever >100.4 F or Pain Last Admin: 05/24/18 21:19 Dose: 650 mg Albuterol/Ipratropium (Duoneb 3 Mg/0.5 Mg (3 Ml) Ud) 3 ml INH RQ6 [facility] Last Admin: 05/25/18 14:12 Dose: Not Given Dextrose (Dextrose 50% Inj) 0 ml IV STAT PRN; Protocol PRN Reason: Hypoglycemia Protocol Last Admin: 05/18/18 18:17 Dose: 50 ml Dextrose (Glutose 15) 0 gm PO ONCE PRN; Protocol PRN Reason: Hypoglycemia Protocol Epoetin Anthony (Procrit) 10,000 unit IV MWF [facility] Last Admin: 05/25/18 12:20 Dose: 10,000 unit Ergocalciferol (Drisdol 50,000 Intl Units Cap) 1 cap PO Q7D [facility] Last Admin: 05/25/18 10:05 Dose: 1 cap Ferrous Gluconate (Fergon) 324 mg PO TID [facility] Last Admin: 05/26/18 10:49 Dose: 324 mg Glucagon (Glucagen Diagnostic Kit) 0 mg IM STAT PRN; Protocol PRN Reason: Hypoglycemia Protocol Heparin Sodium (Porcine) (Heparin) 5,000 units SC Q8 [facility] Last Admin: 05/26/18 05:21 Dose: 5,000 units Aztreonam 1 gm/ Sodium (Chloride) 100 mls @ 100 mls/hr IVPB Q12H [facility]; Protocol Last Admin: 05/26/18 08:05 Dose: 100 mls/hr Clindamycin Phosphate 600 mg/ (Sodium Chloride) 54 mls @ 100 mls/hr IVPB Q8H [facility]; Protocol Last Admin: 05/26/18 05:21 Dose: 100 mls/hr Dopamine HCl/Dextrose (Dopamine 400mg/250ml D5w) 400 mg in 250 mls @ 4.305 mls/hr IV .Q24H PRN; Protocol PRN Reason: TITRATE PER MD ORDER Last Titration: 05/26/18 10:30 Dose: 0 mcg/kg/min, 0 mls/hr Insulin Aspart (Novolog) 0 unit SC Q6 [facility]; Protocol Last Admin: 05/26/18 12:38 Dose: Not Given Montelukast Sodium (Singulair) 10 mg PO HS [facility] Last Admin: 05/25/18 23:00 Dose: 10 mg Pantoprazole Sodium (Protonix Inj) 40 mg IVP DAILY [facility] Last Admin: 05/26/18 10:49 Dose: 40 mg Vitamin B Complex/Vit C/Folic Acid (Nephro-Pancho) 1 tab PO 0800 [facility] Last Admin: 05/26/18 10:49 Dose: 1 tab - Labs Labs: 05/26/18 06:20 05/26/18 06:20 PT 19.8 SECONDS (9.7-12.2) H 05/17/18 06:09 INR 1.8 05/17/18 06:09 APTT 40 SECONDS (21-34) H D 05/17/18 06:09 - Constitutional Appears: Non-toxic, No Acute Distress - Extremities Exam Additional comments: LLE focused exam: Vasc: DP/PT pulses non-palpable secondary to 2+ pitting edema, CFT < 3 seconds to all digits, skin temperature warm to warm from proximal to distal WNL, no erythema present. Diffuse 1+ pitting edema noted to b/l LE which continues to i mprove Neuro: Unable to assess secondary to patient mental state Derm: Three lysed bullae noted to lateral aspect of leg and one lysed bullae noted to medial aspect of leg. Wound bases are all granular in nature. No erythema noted at this time. No clinical signs of infection. No new bullae noted today. Wounds continue to show signs of improvement MSK: No gross deformities noted. Unable to assess ROM or MMT at this time - Neurological Exam Neurological Exam: Alert, Awake - Psychiatric Exam Psychiatric exam: Normal Affect, Normal Mood Assessment and Plan - Assessment and Plan (Free Text) Assessment: 72F seen and evaluated at bedside for b/l leg swelling with drained serous liquid filled bullae of left leg. Plan: Patient seen and evaluated Plan discussed with Dr. Zhu WBC 14.4 Continue abx per ID Wound culture from bullae: No growth after 24 hours Blood cx: Group C Strep Urine cx: E. coli Foot, ankle and tib/fib xrays show no evidence of soft tissue emphysema. Evidence of subcutaneous edema and cellulitis appreciated Bullae sites dressed with DSD, ABD No plan for surgical intervention at this time Multipodus boots reapplied Podiatry will continue to follow while patient in house
--- NOTE | 2018-05-26 13:53 | CP.PCM.PN ---
Subjective - Date & Time of Evaluation Date of Evaluation: 05/26/18 Time of Evaluation: 11:00 - Subjective Subjective: Extubated, appears weak. Objective - Vital Signs/Intake and Output Vital Signs (last 24 hours): Temp Pulse Resp BP Pulse Ox 98.2 F 95 H 12 128/57 L 4 L 05/26/18 12:00 05/26/18 11:28 05/26/18 11:28 05/26/18 11:28 05/26/18 12:00 Intake and Output: 05/26/18 05/26/18 06:59 18:59 Intake Total 200.4 67.6 Output Total 0 0 Balance 200.4 67.6 - Medications Medications: Current Medications Acetaminophen (Tylenol 650mg/20.3ml Solution Ud) 650 mg PO Q6 PRN PRN Reason: Fever >100.4 F or Pain Last Admin: 05/24/18 21:19 Dose: 650 mg Albuterol/Ipratropium (Duoneb 3 Mg/0.5 Mg (3 Ml) Ud) 3 ml INH RQ6 [facility] Last Admin: 05/25/18 14:12 Dose: Not Given Dextrose (Dextrose 50% Inj) 0 ml IV STAT PRN; Protocol PRN Reason: Hypoglycemia Protocol Last Admin: 05/18/18 18:17 Dose: 50 ml Dextrose (Glutose 15) 0 gm PO ONCE PRN; Protocol PRN Reason: Hypoglycemia Protocol Epoetin Anthony (Procrit) 10,000 unit IV MWF [facility] Last Admin: 05/25/18 12:20 Dose: 10,000 unit Ergocalciferol (Drisdol 50,000 Intl Units Cap) 1 cap PO Q7D [facility] Last Admin: 05/25/18 10:05 Dose: 1 cap Ferrous Gluconate (Fergon) 324 mg PO TID [facility] Last Admin: 05/26/18 10:49 Dose: 324 mg Glucagon (Glucagen Diagnostic Kit) 0 mg IM STAT PRN; Protocol PRN Reason: Hypoglycemia Protocol Heparin Sodium (Porcine) (Heparin) 5,000 units SC Q8 [facility] Last Admin: 05/26/18 05:21 Dose: 5,000 units Aztreonam 1 gm/ Sodium (Chloride) 100 mls @ 100 mls/hr IVPB Q12H [facility]; Protocol Last Admin: 05/26/18 08:05 Dose: 100 mls/hr Clindamycin Phosphate 600 mg/ (Sodium Chloride) 54 mls @ 100 mls/hr IVPB Q8H [facility]; Protocol Last Admin: 05/26/18 05:21 Dose: 100 mls/hr Dopamine HCl/Dextrose (Dopamine 400mg/250ml D5w) 400 mg in 250 mls @ 4.305 mls/hr IV .Q24H PRN; Protocol PRN Reason: TITRATE PER MD ORDER Last Titration: 05/26/18 10:30 Dose: 0 mcg/kg/min, 0 mls/hr Insulin Aspart (Novolog) 0 unit SC Q6 [facility]; Protocol Last Admin: 05/26/18 12:38 Dose: Not Given Montelukast Sodium (Singulair) 10 mg PO HS [facility] Last Admin: 05/25/18 23:00 Dose: 10 mg Pantoprazole Sodium (Protonix Inj) 40 mg IVP DAILY [facility] Last Admin: 05/26/18 10:49 Dose: 40 mg Vitamin B Complex/Vit C/Folic Acid (Nephro-Pancho) 1 tab PO 0800 [facility] Last Admin: 05/26/18 10:49 Dose: 1 tab - Labs Labs: 05/26/18 06:20 05/26/18 06:20 PT 19.8 SECONDS (9.7-12.2) H 05/17/18 06:09 INR 1.8 05/17/18 06:09 APTT 40 SECONDS (21-34) H D 05/17/18 06:09 - Head Exam Head Exam: ATRAUMATIC - Eye Exam Eye Exam: Normal appearance - ENT Exam ENT Exam: Mucous Membranes Dry - Respiratory Exam Respiratory Exam: Decreased Breath Sounds - Cardiovascular Exam Cardiovascular Exam: +S1, +S2 - GI/Abdominal Exam GI & Abdominal Exam: Normal Bowel Sounds Assessment and Plan (1) Thrombocytopenia Assessment & Plan: improving sepsis cont. to monitor Status: Acute (2) Coagulopathy Assessment & Plan: sepsis nutritional Status: Acute (3) Anemia Assessment & Plan: chronic disease and renal disease DAVID per renal transfusion support PRN Status: Acute
--- NOTE | 2018-05-26 14:15 | CP.CCUPN ---
<Napoleon Santiago - Last Filed: 05/26/18 14:12> CCU Subjective - Physician Review Subjective (Free Text): 05/26/18 14:15 PGY-1 Critical Care Progress Note for Dr. Ramon Patient seen and evaluated at bedside. No acute events overnight. Patient re- intubated yesterday for bradycardia and worsening respiratory status. CCU Objective - Vital Signs / Intake & Output Vital Signs (Last 4 hours): Vital Signs Temp Pulse Resp BP Pulse Ox 05/26/18 13:28 91 H 13 110/56 L 100 05/26/18 12:29 91 H 12 125/53 L 100 05/26/18 12:00 98.2 F 4 L 05/26/18 11:28 95 H 12 128/57 L 100 05/26/18 10:28 95 H 13 126/62 100 Intake and Output (Last 8hrs): Intake & Output 05/25/18 05/26/18 05/26/18 22:59 06:59 14:59 Intake Total 183.6 33.6 67.6 Output Total 0 0 Balance 183.6 33.6 67.6 Weight 126 lb Intake: IV 55 Intake, IV Amount 183.6 33.6 12.6 Right Internal Jugular 33.6 33.6 12.6 Trialysis Catheter right ac y port 150 Oral 0 Tube Feeding 0 0 Output: Urine 0 0 Urine, Voided 0 0 Other: # Bowel Movements 0 1 1 - Physical Exam Head: Positive for: Atraumatic, Normocephalic Pupils: Positive for: PERRL Extroacular Muscles: Positive for: EOMI Conjunctiva: Positive for: Normal Ears: Positive for: Normal Mouth: Positive for: Moist Mucous Membranes Nose (External): Positive for: Atraumatic Respiratory/Chest: Positive for: Clear to Auscultation Cardiovascular: Positive for: Regular Rate and Rhythm Abdomen: Positive for: Normal Bowel Sounds. Negative for: Tenderness, Distention Upper Extremity: Positive for: Edema Lower Extremity: Positive for: Edema, Other (skin blisters noted on L anterior calf) Neurological: Positive for: Other (intubated) Psychiatric: Positive for: Other (intubated). Negative for: Alert, Oriented x 3 - Medications Active Medications: Active Medications Generic Name Dose Route Start Last Admin Trade Name Freq PRN Reason Stop Dose Admin Acetaminophen 650 mg 05/18/18 00:30 05/24/18 21:19 Tylenol 650mg/20.3ml Solution Ud PO 650 mg Q6 PRN Administration Fever >100.4 F or Pain Albuterol/Ipratropium 3 ml 05/21/18 14:00 05/25/18 14:12 Duoneb 3 Mg/0.5 Mg (3 Ml) Ud INH Not Given RQ6 [facility] Dextrose 0 ml 05/16/18 18:32 05/18/18 18:17 Dextrose 50% Inj IV 50 ml STAT PRN Administration Hypoglycemia Protocol Protocol Dextrose 0 gm 05/16/18 18:32 Glutose 15 PO ONCE PRN Hypoglycemia Protocol Protocol Epoetin Anthony 10,000 unit 05/20/18 15:30 05/25/18 12:20 Procrit IV 10,000 unit MWF [facility] Administration Ergocalciferol 1 cap 05/18/18 10:45 05/25/18 10:05 Drisdol 50,000 Intl Units Cap PO 1 cap Q7D [facility] Administration Ferrous Gluconate 324 mg 05/18/18 14:00 05/26/18 10:49 Fergon PO 324 mg TID [facility] Administration Glucagon 0 mg 05/16/18 18:32 Glucagen Diagnostic Kit IM STAT PRN Hypoglycemia Protocol Protocol Heparin Sodium (Porcine) 5,000 units 05/25/18 22:00 05/26/18 05:21 Heparin SC 5,000 units Q8 [facility] Administration Aztreonam 1 gm/ Sodium 100 mls @ 100 mls/hr 05/17/18 20:00 05/26/18 08:05 Chloride IVPB 100 mls/hr Q12H [facility] Administration Protocol Clindamycin Phosphate 600 mg/ 54 mls @ 100 mls/hr 05/17/18 22:00 05/26/18 05:21 Sodium Chloride IVPB 100 mls/hr Q8H [facility] Administration Protocol Dopamine HCl/Dextrose 400 mg in 250 mls @ 4.305 mls/hr 05/25/18 14:00 05/26/18 10:30 Dopamine 400mg/250ml D5w IV 0 mcg/kg/min .Q24H PRN 0 mls/hr TITRATE PER MD ORDER Titration Protocol 2 MCG/KG/MIN Insulin Aspart 0 unit 05/18/18 00:00 05/26/18 12:38 Novolog SC Not Given Q6 [facility] Protocol Montelukast Sodium 10 mg 05/21/18 22:00 05/25/18 23:00 Singulair PO 10 mg HS [facility] Administration Pantoprazole Sodium 40 mg 05/17/18 10:00 05/26/18 10:49 Protonix Inj IVP 40 mg DAILY [facility] Administration Vitamin B Complex/Vit C/Folic Acid 1 tab 05/19/18 08:00 05/26/18 10:49 Nephro-Pancho PO 1 tab 0800 [facility] Administration - Patient Studies Lab Studies: Microbiology Studies 05/23/18 08:54 Gram Stain - Final Sputum Sputum Culture - Final NORMAL ORAL SANDIE Lab Studies 05/26/18 05/26/18 05/25/18 Range/Units 06:20 06:20 23:27 WBC 14.4 H (4.8-10.8) K/uL RBC 2.79 L (3.80-5.20) Mil/uL Hgb 9.3 L (11.0-16.0) g/dL Hct 28.8 L (34.0-47.0) % MCV 103.3 H (81.0-99.0) fL MCH 33.5 H (27.0-31.0) pg MCHC 32.4 L (33.0-37.0) g/dL RDW 16.2 H (11.5-14.5) % Plt Count 129 L (130-400) K/uL MPV 11.0 (7.2-11.7) fL Neut % (Auto) 91.3 H (50.0-75.0) % Lymph % (Auto) 4.1 L (20.0-40.0) % Ogle % (Auto) 3.9 (0.0-10.0) % Eos % (Auto) 0.5 (0.0-4.0) % Baso % (Auto) 0.2 (0.0-2.0) % Neut # (Auto) 13.2 H (1.8-7.0) K/uL Lymph # (Auto) 0.6 L (1.0-4.3) K/uL Ogle # (Auto) 0.6 (0.0-0.8) K/uL Eos # (Auto) 0.1 (0.0-0.7) K/uL Baso # (Auto) 0.0 (0.0-0.2) K/uL Neutrophils % (Manual) 90 H (50-75) % Band Neutrophils % 1 (0-2) % Lymphocytes % (Manual) 4 L (20-40) % Monocytes % (Manual) 4 (0-10) % Eosinophils % (Manual) 1 (0-4) % Nucleated RBC % 3 H (0-0) % Platelet Estimate Slightly decreased L (NORMAL) Polychromasia Slight Hypochromasia (manual) Slight Poikilocytosis (manual Slight Anisocytosis (manual) Slight Macrocytosis (manual) Slight Sodium 137 (132-148) mmol/L Potassium 3.7 (3.6-5.2) mmol/L Chloride 102 (98-107) mmol/L Carbon Dioxide 29 (22-30) mmol/L Anion Gap 10 (10-20) BUN 45 H (7-17) mg/dL Creatinine 2.3 H (0.7-1.2) mg/dL Est GFR ( Amer) 25 Est GFR (Non-Af Amer) 21 POC Glucose (mg/dL) 161 H (65-110) mg/dL Random Glucose 143 H (65-105) mg/dL Calcium 7.8 L (8.6-10.4) mg/dl Phosphorus 4.8 H (2.5-4.5) mg/dL Magnesium 2.0 (1.6-2.3) mg/dL Total Bilirubin 0.9 (0.2-1.3) mg/dL AST 33 (14-36) U/L ALT 44 (9-52) U/L Alkaline Phosphatase 171 H (38-126) U/L Total Protein 5.0 L (6.3-8.3) g/dL Albumin 2.6 L (3.5-5.0) g/dL Globulin 2.5 (2.2-3.9) gm/dL Albumin/Globulin Ratio 1.0 (1.0-2.1) 05/25/18 Range/Units 18:06 WBC (4.8-10.8) K/uL RBC (3.80-5.20) Mil/uL Hgb (11.0-16.0) g/dL Hct (34.0-47.0) % MCV (81.0-99.0) fL MCH (27.0-31.0) pg MCHC (33.0-37.0) g/dL RDW (11.5-14.5) % Plt Count (130-400) K/uL MPV (7.2-11.7) fL Neut % (Auto) (50.0-75.0) % Lymph % (Auto) (20.0-40.0) % Ogle % (Auto) (0.0-10.0) % Eos % (Auto) (0.0-4.0) % Baso % (Auto) (0.0-2.0) % Neut # (Auto) (1.8-7.0) K/uL Lymph # (Auto) (1.0-4.3) K/uL Ogle # (Auto) (0.0-0.8) K/uL Eos # (Auto) (0.0-0.7) K/uL Baso # (Auto) (0.0-0.2) K/uL Neutrophils % (Manual) (50-75) % Band Neutrophils % (0-2) % Lymphocytes % (Manual) (20-40) % Monocytes % (Manual) (0-10) % Eosinophils % (Manual) (0-4) % Nucleated RBC % (0-0) % Platelet Estimate (NORMAL) Polychromasia Hypochromasia (manual) Poikilocytosis (manual Anisocytosis (manual) Macrocytosis (manual) Sodium (132-148) mmol/L Potassium (3.6-5.2) mmol/L Chloride (98-107) mmol/L Carbon Dioxide (22-30) mmol/L Anion Gap (10-20) BUN (7-17) mg/dL Creatinine (0.7-1.2) mg/dL Est GFR ( Amer) Est GFR (Non-Af Amer) POC Glucose (mg/dL) 112 H (65-110) mg/dL Random Glucose (65-105) mg/dL Calcium (8.6-10.4) mg/dl Phosphorus (2.5-4.5) mg/dL Magnesium (1.6-2.3) mg/dL Total Bilirubin (0.2-1.3) mg/dL AST (14-36) U/L ALT (9-52) U/L Alkaline Phosphatase (38-126) U/L Total Protein (6.3-8.3) g/dL Albumin (3.5-5.0) g/dL Globulin (2.2-3.9) gm/dL Albumin/Globulin Ratio (1.0-2.1) Laboratory Results - last 24 hr 05/25/18 05/25/18 05/26/18 18:06 23:27 06:20 WBC 14.4 H RBC 2.79 L Hgb 9.3 L Hct 28.8 L MCV 103.3 H MCH 33.5 H MCHC 32.4 L RDW 16.2 H Plt Count 129 L MPV 11.0 Neut % (Auto) 91.3 H Lymph % (Auto) 4.1 L Ogle % (Auto) 3.9 Eos % (Auto) 0.5 Baso % (Auto) 0.2 Neut # (Auto) 13.2 H Lymph # (Auto) 0.6 L Ogle # (Auto) 0.6 Eos # (Auto) 0.1 Baso # (Auto) 0.0 Neutrophils % (Manual) 90 H Band Neutrophils % 1 Lymphocytes % (Manual) 4 L Monocytes % (Manual) 4 Eosinophils % (Manual) 1 Nucleated RBC % 3 H Platelet Estimate Slightly decreased L Polychromasia Slight Hypochromasia (manual) Slight Poikilocytosis (manual Slight Anisocytosis (manual) Slight Macrocytosis (manual) Slight Sodium Potassium Chloride Carbon Dioxide Anion Gap BUN Creatinine Est GFR ( Amer) Est GFR (Non-Af Amer) POC Glucose (mg/dL) 112 H 161 H Random Glucose Calcium Phosphorus Magnesium Total Bilirubin AST ALT Alkaline Phosphatase Total Protein Albumin Globulin Albumin/Globulin Ratio 05/26/18 06:20 WBC RBC Hgb Hct MCV MCH MCHC RDW Plt Count MPV Neut % (Auto) Lymph % (Auto) Ogle % (Auto) Eos % (Auto) Baso % (Auto) Neut # (Auto) Lymph # (Auto) Ogle # (Auto) Eos # (Auto) Baso # (Auto) Neutrophils % (Manual) Band Neutrophils % Lymphocytes % (Manual) Monocytes % (Manual) Eosinophils % (Manual) Nucleated RBC % Platelet Estimate Polychromasia Hypochromasia (manual) Poikilocytosis (manual Anisocytosis (manual) Macrocytosis (manual) Sodium 137 Potassium 3.7 Chloride 102 Carbon Dioxide 29 Anion Gap 10 BUN 45 H Creatinine 2.3 H Est GFR ( Amer) 25 Est GFR (Non-Af Amer) 21 POC Glucose (mg/dL) Random Glucose 143 H Calcium 7.8 L Phosphorus 4.8 H Magnesium 2.0 Total Bilirubin 0.9 AST 33 ALT 44 Alkaline Phosphatase 171 H Total Protein 5.0 L Albumin 2.6 L Globulin 2.5 Albumin/Globulin Ratio 1.0 Radiology Impressions: Radiology Impressions Chest X-Ray 05/26/18 10:33 IMPRESSION: No acute infiltrate. Fingerstick Blood Sugar Results: 159 Review of Systems - Review of Systems All systems: reviewed and no additional remarkable complaints except Critical Care Progress Note - Nutrition Nutrition: Nutrition Category Date Time Status Liquid Diet [DIET] Diets 05/26/18 Lunch Active Assessment/Plan - Assessment and Plan (Free Text) Assessment: 72yo F. PMHx CHF, CAD, HTN, hyperlipidemia, hypothyroidism, DM type 2, CKD. p/w cellulitis that has progressed to septic shock, with streptococcal bacteremia and ATN. Started on dialysis (05/17). Extubated (05/20) and reintubated secondary to bradycardia. Plan: Neuro: -Currently intubated. No sedation. Alert and appears oriented. -No gross deficits on exam, cont to monitor Cardio: - Hx CABG, HTN, CHF, HLD - Acute CHF exacerbation- - Dr. Ramires consulted, recs appreciated - Echo 05/15: LV function severely reduced, diffuse hypokinesis. EF 20%. Septum dyskinetic and demonstrates flattening, elevated RV pressure. R ventricle, L and R atria dilated. Severe pulmonary HTN. - Off Dobutamine now - On low dose Dopamine ggt to counteract Bradycardia Pulm: -Intubated on MV -Weaning protocol and CPAP trials as tolerated -Maintain O2 sat > 92% -Bronchodilators -Acute respiratory failure likely 2/2 aspiration of bilious vomit - Empiric antibiotics for Aspiration PNU -Blood cxs growing Group C strep, urine cx growing E.coli GI: -NPO -Glucerna tube feeds -Protonix Heme: -Dr. Duggan consulted for pancytopenia, recs appreciated -Procrit MWF -H/H stable, cont to trend, transfuse prn -Thrombocytopenia stable, cont to trend Renal: -Oliguria, ATN -Dr. Pereira consulted, recs appreciated -HD MWF -[place] d/c'd ID: -Fever 100.5 at on 05/24 -Tx possible aspiration PNA/VAP and UTI as noted above -ID consulted, Dr. Guevara, recs appreciated -Podiatry consulted, Dr. Zhu, for L lower leg cellulitis/blister formation, recs appreciated No acute surgical intervention indicated at this time L Ankle XR: No evid of acute displaced fracture or doslocation. No obvious cortical destructive changes. Diffuse soft tissue swelling and infiltration c/w cellulitis however no evidence of subcutaneous emphysema is identified. -L Foot XR: No gas forming cellulitis. Soft tissue diffuse swelling - compatible with lymphedema and/or cellulitis. No periosteal reaction to suggest osteomyelitis noted. No gross osseous destruction appreciated. Generalized osteopenia and mild diffuse degenerative changes as above. -L tib/fib XR: No evidence of acute displaced fracture nor dislocation. No cortical destruction however does appear to be mild cortical thickening changes inviling the mid lateral fibula that could be reactive although early osteomyelitis not completely excluded. Consider f/u bone scan or MRI. - Repeat Bcx from 05/19 negative to date - Ucx E.Coli (05/16), repeat Ucx negative --Azactam/Clindamycin for empiric coverage Endo: -Hx DM2 -Fingersticks q6h -ISS -Hypoglycemic protocol PPX: - GI ppx Protonix - DVT ppx Heparin SC Pt seen, examined with, and plan discussed with Dr. Tristen Santiago, PGY-1 <Toney Ramon S - Last Filed: 05/26/18 18:35> CCU Subjective - Physician Review Critical Care Time Spent (in minutes): 35 CCU Objective - Vital Signs / Intake & Output Vital Signs (Last 4 hours): Vital Signs Pulse Resp BP Pulse Ox 05/26/18 16:29 96 H 14 140/59 L 100 05/26/18 15:28 95 H 18 131/59 L 98 Intake and Output (Last 8hrs): Intake & Output 05/26/18 05/26/18 05/26/18 06:59 14:59 22:59 Intake Total 33.6 67.6 250 Output Total 0 0 Balance 33.6 67.6 250 Weight 126 lb Intake: IV 55 Intake, IV Amount 33.6 12.6 Right Internal Jugular 33.6 12.6 Trialysis Catheter Oral 0 250 Tube Feeding 0 Output: Urine 0 0 Urine, Voided 0 0 Other: # Bowel Movements 1 1 - Medications Active Medications: Active Medications Generic Name Dose Route Start Last Admin Trade Name Freq PRN Reason Stop Dose Admin Acetaminophen 650 mg 05/18/18 00:30 05/24/18 21:19 Tylenol 650mg/20.3ml Solution Ud PO 650 mg Q6 PRN Administration Fever >100.4 F or Pain Albuterol/Ipratropium 3 ml 05/21/18 14:00 05/25/18 14:12 Duoneb 3 Mg/0.5 Mg (3 Ml) Ud INH Not Given RQ6 [facility] Dextrose 0 ml 05/16/18 18:32 05/18/18 18:17 Dextrose 50% Inj IV 50 ml STAT PRN Administration Hypoglycemia Protocol Protocol Dextrose 0 gm 05/16/18 18:32 Glutose 15 PO ONCE PRN Hypoglycemia Protocol Protocol Epoetin Anthony 10,000 unit 05/20/18 15:30 05/25/18 12:20 Procrit IV 10,000 unit MWF [facility] Administration Ergocalciferol 1 cap 05/18/18 10:45 05/25/18 10:05 Drisdol 50,000 Intl Units Cap PO 1 cap Q7D [facility] Administration Ferrous Gluconate 324 mg 05/18/18 14:00 05/26/18 18:10 Fergon PO 324 mg TID [facility] Administration Glucagon 0 mg 05/16/18 18:32 Glucagen Diagnostic Kit IM STAT PRN Hypoglycemia Protocol Protocol Heparin Sodium (Porcine) 5,000 units 05/25/18 22:00 05/26/18 15:00 Heparin SC 5,000 units Q8 [facility] Administration Aztreonam 1 gm/ Sodium 100 mls @ 100 mls/hr 05/17/18 20:00 05/26/18 08:05 Chloride IVPB 100 mls/hr Q12H [facility] Administration Protocol Clindamycin Phosphate 600 mg/ 54 mls @ 100 mls/hr 05/17/18 22:00 05/26/18 15:02 Sodium Chloride IVPB 100 mls/hr Q8H [facility] Administration Protocol Dopamine HCl/Dextrose 400 mg in 250 mls @ 4.305 mls/hr 05/25/18 14:00 05/26/18 10:30 Dopamine 400mg/250ml D5w IV 0 mcg/kg/min .Q24H PRN 0 mls/hr TITRATE PER MD ORDER Titration Protocol 2 MCG/KG/MIN Insulin Aspart 0 unit 05/18/18 00:00 05/26/18 18:09 Novolog SC 2 units Q6 [facility] Administration Protocol Montelukast Sodium 10 mg 05/21/18 22:00 05/25/18 23:00 Singulair PO 10 mg HS [facility] Administration Pantoprazole Sodium 40 mg 05/17/18 10:00 05/26/18 10:49 Protonix Inj IVP 40 mg DAILY [facility] Administration Vitamin B Complex/Vit C/Folic Acid 1 tab 05/19/18 08:00 05/26/18 10:49 Nephro-Pancho PO 1 tab 0800 [facility] Administration - Patient Studies Lab Studies: Lab Studies 05/26/18 05/26/18 05/25/18 Range/Units 06:20 06:20 23:27 WBC 14.4 H (4.8-10.8) K/uL RBC 2.79 L (3.80-5.20) Mil/uL Hgb 9.3 L (11.0-16.0) g/dL Hct 28.8 L (34.0-47.0) % MCV 103.3 H (81.0-99.0) fL MCH 33.5 H (27.0-31.0) pg MCHC 32.4 L (33.0-37.0) g/dL RDW 16.2 H (11.5-14.5) % Plt Count 129 L (130-400) K/uL MPV 11.0 (7.2-11.7) fL Neut % (Auto) 91.3 H (50.0-75.0) % Lymph % (Auto) 4.1 L (20.0-40.0) % Ogle % (Auto) 3.9 (0.0-10.0) % Eos % (Auto) 0.5 (0.0-4.0) % Baso % (Auto) 0.2 (0.0-2.0) % Neut # (Auto) 13.2 H (1.8-7.0) K/uL Lymph # (Auto) 0.6 L (1.0-4.3) K/uL Ogle # (Auto) 0.6 (0.0-0.8) K/uL Eos # (Auto) 0.1 (0.0-0.7) K/uL Baso # (Auto) 0.0 (0.0-0.2) K/uL Neutrophils % (Manual) 90 H (50-75) % Band Neutrophils % 1 (0-2) % Lymphocytes % (Manual) 4 L (20-40) % Monocytes % (Manual) 4 (0-10) % Eosinophils % (Manual) 1 (0-4) % Nucleated RBC % 3 H (0-0) % Platelet Estimate Slightly decreased L (NORMAL) Polychromasia Slight Hypochromasia (manual) Slight Poikilocytosis (manual Slight Anisocytosis (manual) Slight Macrocytosis (manual) Slight Sodium 137 (132-148) mmol/L Potassium 3.7 (3.6-5.2) mmol/L Chloride 102 (98-107) mmol/L Carbon Dioxide 29 (22-30) mmol/L Anion Gap 10 (10-20) BUN 45 H (7-17) mg/dL Creatinine 2.3 H (0.7-1.2) mg/dL Est GFR ( Amer) 25 Est GFR (Non-Af Amer) 21 POC Glucose (mg/dL) 161 H (65-110) mg/dL Random Glucose 143 H (65-105) mg/dL Calcium 7.8 L (8.6-10.4) mg/dl Phosphorus 4.8 H (2.5-4.5) mg/dL Magnesium 2.0 (1.6-2.3) mg/dL Total Bilirubin 0.9 (0.2-1.3) mg/dL AST 33 (14-36) U/L ALT 44 (9-52) U/L Alkaline Phosphatase 171 H (38-126) U/L Total Protein 5.0 L (6.3-8.3) g/dL Albumin 2.6 L (3.5-5.0) g/dL Globulin 2.5 (2.2-3.9) gm/dL Albumin/Globulin Ratio 1.0 (1.0-2.1) Laboratory Results - last 24 hr 05/25/18 05/26/18 05/26/18 23:27 06:20 06:20 WBC 14.4 H RBC 2.79 L Hgb 9.3 L Hct 28.8 L MCV 103.3 H MCH 33.5 H MCHC 32.4 L RDW 16.2 H Plt Count 129 L MPV 11.0 Neut % (Auto) 91.3 H Lymph % (Auto) 4.1 L Ogle % (Auto) 3.9 Eos % (Auto) 0.5 Baso % (Auto) 0.2 Neut # (Auto) 13.2 H Lymph # (Auto) 0.6 L Ogle # (Auto) 0.6 Eos # (Auto) 0.1 Baso # (Auto) 0.0 Neutrophils % (Manual) 90 H Band Neutrophils % 1 Lymphocytes % (Manual) 4 L Monocytes % (Manual) 4 Eosinophils % (Manual) 1 Nucleated RBC % 3 H Platelet Estimate Slightly decreased L Polychromasia Slight Hypochromasia (manual) Slight Poikilocytosis (manual Slight Anisocytosis (manual) Slight Macrocytosis (manual) Slight Sodium 137 Potassium 3.7 Chloride 102 Carbon Dioxide 29 Anion Gap 10 BUN 45 H Creatinine 2.3 H Est GFR ( Amer) 25 Est GFR (Non-Af Amer) 21 POC Glucose (mg/dL) 161 H Random Glucose 143 H Calcium 7.8 L Phosphorus 4.8 H Magnesium 2.0 Total Bilirubin 0.9 AST 33 ALT 44 Alkaline Phosphatase 171 H Total Protein 5.0 L Albumin 2.6 L Globulin 2.5 Albumin/Globulin Ratio 1.0 Radiology Impressions: Radiology Impressions Chest X-Ray 05/26/18 10:33 IMPRESSION: No acute infiltrate. Critical Care Progress Note - Nutrition Nutrition: Nutrition Category Date Time Status Liquid Diet [DIET] Diets 05/26/18 Lunch Active NPO Diet [DIET] Diets 05/27/18 Breakfast Active Attending/Attestation - Attestation I have personally seen and examined this patient.: Yes I have fully participated in the care of the patient.: Yes I have reviewed all pertinent clinical information: Yes Notes (Text): 05/26/18 18:34 Patient seen and examined in the intensive care unit. Case discussed with housestaff in the morning rounds. Patient extubated yesterday and in no respiratory distress Continue present treatment Stable for transfer to floor Swallowing evaluation
[2018-05-27 06:06] LABS: BASO % 0.4 % (0.0-2.0); EOS # 0.1 K/uL (0.0-0.7); HEMOGLOBIN 8.9 g/dL (11.0-16.0); LYMPH # 0.6 K/uL (1.0-4.3); LYMPH % 5.2 % (20.0-40.0); MEAN CELL VOLUME 104.5 fL (81.0-99.0); MEAN CORPUSCULAR HEMOGLOBIN 33.6 pg (27.0-31.0); MEAN CORPUSCULAR HGB CONC 32.1 g/dL (33.0-37.0); MEAN PLATELET VOLUME 10.3 fL (7.2-11.7); MONO # 0.6 K/uL (0.0-0.8); MONO % 5.4 % (0.0-10.0); NEUT # 10.3 K/uL (1.8-7.0); NRBC % 0.4 % (0.0-2.0); PLATELET COUNT 150 K/uL (130-400); RBC 2.64 Mil/uL (3.80-5.20); RED CELL DISTRIBUTION WIDTH 16.2 % (11.5-14.5); WHITE BLOOD COUNT 11.7 K/uL (4.8-10.8)
[2018-05-27 06:16] LABS: INR 1.2; PROTHROMBIN TIME 12.7 SECONDS (9.7-12.2)
[2018-05-27 06:18] LABS: CALCIUM 7.8 mg/dl (8.6-10.4)
[2018-05-27] MEDS ORDERED: (Novolog) Insulin Aspart, Recombinant 100 u/ml 10 ml vial SC SCH (07:30)
[2018-05-27] MEDS: Multivitamin Vitamin B Complex (Nephro-Vite) Tab PO SCH (08:00)
[2018-05-27 08:08] LABS: ANISOCYTOSIS SLIGHT; BANDS 1 % (0-2); EOSINOPHIL 1 % (0-4); HYPOCHROMIC SLIGHT; LYMPHOCYTE 4 % (20-40); MONOCYTE 4 % (0-10); NEUTROPHIL 90 % (50-75); NUCLEATED RED BLOOD CELL 2 % (0-0); PLATELET ESTIMATE NORMAL (NORMAL); POIKILOCYTOSIS SLIGHT; TOTAL CELLS COUNTED 100
[2018-05-27 08:10] LABS: LARGE PLATELETS PRESENT
[2018-05-27] MEDS: (Novolog) Insulin Aspart, Recombinant 100 u/ml 10 ml vial SC SCH ×5 (08:14→21:31)
[2018-05-27] MEDS: Aztreonam 1 GM in Sodium Chloride 0.9% 100 ML IVPB SCH ×2 (08:30→19:51)
[2018-05-27] MEDS: Epoetin Alfa 10,000 unit/ml Dialysis IV SCH (10:18)
[2018-05-27] MEDS: Acetaminophen 650mg/20.3ml solution UD PO PRN ×2 (12:38→18:34)
--- NOTE | 2018-05-27 13:12 | RAD ---
HISTORY: s/p extubation COMPARISON: Chest x-ray performed 05/26/18 TECHNIQUE: Chest, one view. FINDINGS: LUNGS: Increasing opacification of the left hemithorax. No definite pneumothorax. CARDIOVASCULAR: Median sternotomy wires with evidence of CABG. Partially obscured cardiomegaly. OSSEOUS STRUCTURES: Degenerative changes. VISUALIZED UPPER ABDOMEN: Elevation of the right hemidiaphragm. OTHER FINDINGS: None. IMPRESSION: Increasing opacification of the left hemithorax with aeration of the left upper lobe; correlate for consolidation. The right hemithorax appears clear.
--- NOTE | 2018-05-27 16:16 | CP.PCM.PN ---
Subjective - Date & Time of Evaluation Date of Evaluation: 05/27/18 Time of Evaluation: 10:00 - Subjective Subjective: Vascular Surgery Progress note- Dr. Luna patient seen and examined. Currently undergoing Dialysis through [facility] No acute events overnight. Permacath planned for tomorrow Objective - Vital Signs/Intake and Output Vital Signs (last 24 hours): Temp Pulse Resp BP Pulse Ox 98 F 96 H 20 117/53 L 100 05/27/18 12:40 05/27/18 13:00 05/27/18 13:00 05/27/18 12:40 05/27/18 13:00 Intake and Output: 05/27/18 05/27/18 06:59 18:59 Intake Total 400 400 Output Total 2 Balance 398 400 - Medications Medications: Current Medications Acetaminophen (Tylenol 650mg/20.3ml Solution Ud) 650 mg PO Q6 PRN PRN Reason: Fever >100.4 F or Pain Last Admin: 05/27/18 12:38 Dose: 650 mg Albuterol/Ipratropium (Duoneb 3 Mg/0.5 Mg (3 Ml) Ud) 3 ml INH RQ6 [facility] Last Admin: 05/25/18 14:12 Dose: Not Given Dextrose (Dextrose 50% Inj) 0 ml IV STAT PRN; Protocol PRN Reason: Hypoglycemia Protocol Last Admin: 05/18/18 18:17 Dose: 50 ml Dextrose (Glutose 15) 0 gm PO ONCE PRN; Protocol PRN Reason: Hypoglycemia Protocol Epoetin Anthony (Procrit) 10,000 unit IV MWF [facility] Last Admin: 05/27/18 10:18 Dose: 10,000 unit Ergocalciferol (Drisdol 50,000 Intl Units Cap) 1 cap PO Q7D [facility] Last Admin: 05/25/18 10:05 Dose: 1 cap Ferrous Gluconate (Fergon) 324 mg PO TID [facility] Last Admin: 05/27/18 14:53 Dose: 324 mg Glucagon (Glucagen Diagnostic Kit) 0 mg IM STAT PRN; Protocol PRN Reason: Hypoglycemia Protocol Heparin Sodium (Porcine) (Heparin) 5,000 units SC Q8 [facility] Last Admin: 05/27/18 14:52 Dose: 5,000 units Aztreonam 1 gm/ Sodium (Chloride) 100 mls @ 100 mls/hr IVPB Q12H [facility]; Protocol Last Admin: 05/27/18 08:30 Dose: 100 mls/hr Clindamycin Phosphate 600 mg/ (Sodium Chloride) 54 mls @ 100 mls/hr IVPB Q8H [facility]; Protocol Last Admin: 05/27/18 14:52 Dose: 100 mls/hr Dopamine HCl/Dextrose (Dopamine 400mg/250ml D5w) 400 mg in 250 mls @ 4.305 mls/hr IV .Q24H PRN; Protocol PRN Reason: TITRATE PER MD ORDER Last Titration: 05/26/18 10:30 Dose: 0 mcg/kg/min, 0 mls/hr Sodium Chloride (Sodium Chloride 0.9%) 1,000 mls @ 50 mls/hr IV .Q20H [facility] Insulin Aspart (Novolog) 0 unit SC ACHS [facility]; Protocol Last Admin: 05/27/18 12:18 Dose: Not Given Montelukast Sodium (Singulair) 10 mg PO HS [facility] Last Admin: 05/26/18 21:15 Dose: 10 mg Pantoprazole Sodium (Protonix Inj) 40 mg IVP DAILY [facility] Last Admin: 05/27/18 09:35 Dose: 40 mg Vitamin B Complex/Vit C/Folic Acid (Nephro-Pancho) 1 tab PO 0800 [facility] Last Admin: 05/27/18 08:00 Dose: 1 tab - Labs Labs: 05/27/18 05:54 05/27/18 05:52 PT 12.7 SECONDS (9.7-12.2) H 05/27/18 05:54 INR 1.2 05/27/18 05:54 APTT 29 SECONDS (21-34) 05/27/18 05:54 - Constitutional Appears: Non-toxic, No Acute Distress, Chronically Ill - Head Exam Head Exam: ATRAUMATIC - Eye Exam Eye Exam: EOMI. absent: Scleral icterus - ENT Exam ENT Exam: Mucous Membranes Moist - Neck Exam Additional comments: HAMZAH Price - Cardiovascular Exam Cardiovascular Exam: REGULAR RHYTHM. absent: Bradycardia, Tachycardia - Neurological Exam Neurological Exam: Alert, Awake Additional comments: AAOx2 - Psychiatric Exam Psychiatric exam: Normal Affect - Skin Skin Exam: Intact, Warm Assessment and Plan - Assessment and Plan (Free Text) Assessment: 72F w/ Acute Kidney Injury on Dialysis Plan: - plan for permacath tomorrow - NPO after MN - continued management per Critical care team - d/w Dr. Luna surgical attending PGY2
--- NOTE | 2018-05-27 17:26 | CP.PCM.PN ---
Subjective - Date & Time of Evaluation Date of Evaluation: 05/27/18 Time of Evaluation: 17:25 - Subjective Subjective: Nephrology Follow up Note HPI: 72-year-old female with a history of CHF, CAD, hypertension, hyperlipidemia, history of thyroid disease and renal disease, patient admitted to the hospital with a complaining of left lower extremity pain swelling of one day duration along with fever, followed by code sepsis, hypotension leading to resp distress and current intubation. Hx is obtained from charts. currrently intubated on pressors unknown baseline kidney disease, cr is now 3.1 UOP 10-15 cc per hour. on iv fluids and pressors Past medical history: Had a history of congestive heart failure, coronary artery disease, diabetes, hypertension, hypothyroidism, renal insufficiency. Patient has allergic to penicillin Surgical history include coronary artery bypass grafting x2 Social history: No smoking or drinking history noted Family history significant for diabetes and heart disease Medications at this time not available. 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 extubated 05/25/18 she feels better. denies SOB On examination: Patient is currently extubated. Off ventilator. Chest B/L air entry improved Heart sounds are regular s1s2 normal Abdomen soft non tender. edema ++ feets better in terms of edema awake calm Left lower extremity erythema, blisters, and swelling noted Assesment: stable oligoanuric ARRON likely ATN/septic shock with cellulitis and ? 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 to plan for permacath placement, consulted vascular surgery. SW consult for outpt HD placement. maintain hemodynamics stable. Avoid hypotension. Patient not on ACEI/ARB due to recent ARRON Monitor Input/Output, daily weights and renal function with basic metabolic pa flores c/w Iron, MVI. PRBC as needed. epogen ordered supplement Vit D supplement lytes as needed. Dose meds/antibiotics for reduced GFR. Avoid fleets enema/magnesium based laxatives. Avoid nephrotoxins/NSAIDs/ iodinated contrast (unless needed emergently) Glycemic control Further work up/management as per primary team Thanks for allowing me to participate in care of your patient. Will follow patie nt with you. Please call if any Qs. had d/w team and family Dr Edin Castro Office: [phone] Objective - Vital Signs/Intake and Output Vital Signs (last 24 hours): Temp Pulse Resp BP Pulse Ox 98 F 88 14 112/48 L 94 L 05/27/18 12:40 05/27/18 16:18 05/27/18 16:18 05/27/18 16:18 05/27/18 16:18 Intake and Output: 05/27/18 05/27/18 06:59 18:59 Intake Total 400 500 Output Total 2 Balance 398 500 - Medications Medications: Current Medications Acetaminophen (Tylenol 650mg/20.3ml Solution Ud) 650 mg PO Q6 PRN PRN Reason: Fever >100.4 F or Pain Last Admin: 05/27/18 12:38 Dose: 650 mg Albuterol/Ipratropium (Duoneb 3 Mg/0.5 Mg (3 Ml) Ud) 3 ml INH RQ6 [facility] Last Admin: 05/25/18 14:12 Dose: Not Given Dextrose (Dextrose 50% Inj) 0 ml IV STAT PRN; Protocol PRN Reason: Hypoglycemia Protocol Last Admin: 05/18/18 18:17 Dose: 50 ml Dextrose (Glutose 15) 0 gm PO ONCE PRN; Protocol PRN Reason: Hypoglycemia Protocol Epoetin Anthony (Procrit) 10,000 unit IV MWF [facility] Last Admin: 05/27/18 10:18 Dose: 10,000 unit Ergocalciferol (Drisdol 50,000 Intl Units Cap) 1 cap PO Q7D [facility] Last Admin: 05/25/18 10:05 Dose: 1 cap Ferrous Gluconate (Fergon) 324 mg PO TID [facility] Last Admin: 05/27/18 17:06 Dose: 324 mg Glucagon (Glucagen Diagnostic Kit) 0 mg IM STAT PRN; Protocol PRN Reason: Hypoglycemia Protocol Heparin Sodium (Porcine) (Heparin) 5,000 units SC Q8 [facility] Last Admin: 05/27/18 14:52 Dose: 5,000 units Aztreonam 1 gm/ Sodium (Chloride) 100 mls @ 100 mls/hr IVPB Q12H [facility]; Protocol Last Admin: 05/27/18 08:30 Dose: 100 mls/hr Clindamycin Phosphate 600 mg/ (Sodium Chloride) 54 mls @ 100 mls/hr IVPB Q8H [facility]; Protocol Last Admin: 05/27/18 14:52 Dose: 100 mls/hr Dopamine HCl/Dextrose (Dopamine 400mg/250ml D5w) 400 mg in 250 mls @ 4.305 mls/hr IV .Q24H PRN; Protocol PRN Reason: TITRATE PER MD ORDER Last Titration: 05/26/18 10:30 Dose: 0 mcg/kg/min, 0 mls/hr Sodium Chloride (Sodium Chloride 0.9%) 1,000 mls @ 50 mls/hr IV .Q20H [facility] Insulin Aspart (Novolog) 0 unit SC ACHS [facility]; Protocol Last Admin: 05/27/18 17:05 Dose: 2 units Montelukast Sodium (Singulair) 10 mg PO HS [facility] Last Admin: 05/26/18 21:15 Dose: 10 mg Pantoprazole Sodium (Protonix Inj) 40 mg IVP DAILY [facility] Last Admin: 05/27/18 09:35 Dose: 40 mg Vitamin B Complex/Vit C/Folic Acid (Nephro-Pancho) 1 tab PO 0800 [facility] Last Admin: 05/27/18 08:00 Dose: 1 tab - Labs Labs: 05/27/18 05:54 05/27/18 05:52 PT 12.7 SECONDS (9.7-12.2) H 05/27/18 05:54 INR 1.2 05/27/18 05:54 APTT 29 SECONDS (21-34) 05/27/18 05:54
--- NOTE | 2018-05-27 17:35 | CP.CCUPN ---
<Eloisa Mensah - Last Filed: 05/27/18 17:35> CCU Subjective - Physician Review Subjective (Free Text): S/p Extubation on 05/25 Dopamine ggt weaned last night since 10pm Hemodynamically stable overnight No acute overnight events. Pt seen siting in bed with eyes open and alert. Appears to be in no acute distress, breathing comfortably on NC. CCU Objective - Vital Signs / Intake & Output Vital Signs (Last 4 hours): Vital Signs Temp Pulse Pulse Resp BP BP Pulse Ox 05/27/18 13:00 96 H 20 100 05/27/18 12:57 90 12 100 05/27/18 12:40 98 F 95 H 18 117/53 L 100 05/27/18 12:27 96 H 26 H 122/48 L 100 05/27/18 12:25 122/48 L 05/27/18 12:12 116/50 L 05/27/18 12:11 95 H 14 100 05/27/18 12:10 116/50 L 05/27/18 12:00 98 F 4 L 05/27/18 11:55 120/46 L 05/27/18 11:40 110/40 L 05/27/18 11:25 119/57 L 05/27/18 11:12 85 12 123/47 L 100 05/27/18 11:10 123/47 L 05/27/18 10:57 84 13 124/46 L 100 05/27/18 10:55 124/46 L 05/27/18 10:40 105/48 L 05/27/18 10:27 82 16 108/50 L 100 05/27/18 10:25 108/50 L Intake and Output (Last 8hrs): Intake & Output 05/26/18 05/27/18 05/27/18 22:59 06:59 14:59 Intake Total 800 50 400 Output Total 2 Balance 800 48 400 Weight 150 lb 0.012 oz Intake: Intake, IV Amount 200 50 100 Right Trialysis Y-Port 200 50 100 Oral 600 0 300 Output: Urine/Stool Mix 2 Other: # Voids Urine, Voided 0 0 0 # Bowel Movements 0 0 1 - Physical Exam Head: Positive for: Atraumatic, Normocephalic Pupils: Positive for: PERRL Extroacular Muscles: Positive for: EOMI Conjunctiva: Positive for: Normal Ears: Positive for: Normal Mouth: Positive for: Moist Mucous Membranes Nose (External): Positive for: Atraumatic Respiratory/Chest: Positive for: Clear to Auscultation Cardiovascular: Positive for: Regular Rate and Rhythm Abdomen: Positive for: Normal Bowel Sounds. Negative for: Tenderness, Distention Upper Extremity: Positive for: Edema Lower Extremity: Positive for: Edema, Other (skin blisters noted on L anterior calf) Neurological: Positive for: Other (intubated) Psychiatric: Positive for: Other (intubated). Negative for: Alert, Oriented x 3 - Medications Active Medications: Active Medications Generic Name Dose Route Start Last Admin Trade Name Freq PRN Reason Stop Dose Admin Acetaminophen 650 mg 05/18/18 00:30 05/27/18 12:38 Tylenol 650mg/20.3ml Solution Ud PO 650 mg Q6 PRN Administration Fever >100.4 F or Pain Albuterol/Ipratropium 3 ml 05/21/18 14:00 05/25/18 14:12 Duoneb 3 Mg/0.5 Mg (3 Ml) Ud INH Not Given RQ6 LAURENCE Dextrose 0 ml 05/16/18 18:32 05/18/18 18:17 Dextrose 50% Inj IV 50 ml STAT PRN Administration Hypoglycemia Protocol Protocol Dextrose 0 gm 05/16/18 18:32 Glutose 15 PO ONCE PRN Hypoglycemia Protocol Protocol Epoetin Anthony 10,000 unit 05/20/18 15:30 05/27/18 10:18 Procrit IV 10,000 unit MWF LAURENCE Administration Ergocalciferol 1 cap 05/18/18 10:45 05/25/18 10:05 Drisdol 50,000 Intl Units Cap PO 1 cap Q7D LAURENCE Administration Ferrous Gluconate 324 mg 05/18/18 14:00 05/27/18 09:36 Fergon PO 324 mg TID LAURENCE Administration Glucagon 0 mg 05/16/18 18:32 Glucagen Diagnostic Kit IM STAT PRN Hypoglycemia Protocol Protocol Heparin Sodium (Porcine) 5,000 units 05/25/18 22:00 05/27/18 06:00 Heparin SC Not Given Q8 LAURENCE Aztreonam 1 gm/ Sodium 100 mls @ 100 mls/hr 05/17/18 20:00 05/27/18 08:30 Chloride IVPB 100 mls/hr Q12H LAURENCE Administration Protocol Clindamycin Phosphate 600 mg/ 54 mls @ 100 mls/hr 05/17/18 22:00 05/27/18 05:26 Sodium Chloride IVPB 100 mls/hr Q8H LAURENCE Administration Protocol Dopamine HCl/Dextrose 400 mg in 250 mls @ 4.305 mls/hr 05/25/18 14:00 05/26/18 10:30 Dopamine 400mg/250ml D5w IV 0 mcg/kg/min .Q24H PRN 0 mls/hr TITRATE PER MD ORDER Titration Protocol 2 MCG/KG/MIN Insulin Aspart 0 unit 05/27/18 07:30 05/27/18 12:18 Novolog SC Not Given ACHS LAURENCE Protocol Montelukast Sodium 10 mg 05/21/18 22:00 05/26/18 21:15 Singulair PO 10 mg HS LAURENCE Administration Pantoprazole Sodium 40 mg 05/17/18 10:00 05/27/18 09:35 Protonix Inj IVP 40 mg DAILY LAURENCE Administration Vitamin B Complex/Vit C/Folic Acid 1 tab 05/19/18 08:00 05/27/18 08:00 Nephro-Pancho PO 1 tab 0800 LAURENCE Administration - Patient Studies Lab Studies: Lab Studies 05/27/18 05/27/18 05/27/18 Range/Units 06:43 05:54 05:54 WBC 11.7 H (4.8-10.8) K/uL RBC 2.64 L (3.80-5.20) Mil/uL Hgb 8.9 L (11.0-16.0) g/dL Hct 27.6 L (34.0-47.0) % MCV 104.5 H (81.0-99.0) fL MCH 33.6 H (27.0-31.0) pg MCHC 32.1 L (33.0-37.0) g/dL RDW 16.2 H (11.5-14.5) % Plt Count 150 (130-400) K/uL MPV 10.3 (7.2-11.7) fL Neut % (Auto) 88.0 H (50.0-75.0) % Lymph % (Auto) 5.2 L (20.0-40.0) % Edgar % (Auto) 5.4 (0.0-10.0) % Eos % (Auto) 1.0 (0.0-4.0) % Baso % (Auto) 0.4 (0.0-2.0) % Neut # (Auto) 10.3 H (1.8-7.0) K/uL Lymph # (Auto) 0.6 L (1.0-4.3) K/uL Edgar # (Auto) 0.6 (0.0-0.8) K/uL Eos # (Auto) 0.1 (0.0-0.7) K/uL Baso # (Auto) 0.0 (0.0-0.2) K/uL Neutrophils % (Manual) 90 H (50-75) % Band Neutrophils % 1 (0-2) % Lymphocytes % (Manual) 4 L (20-40) % Monocytes % (Manual) 4 (0-10) % Eosinophils % (Manual) 1 (0-4) % Nucleated RBC % 2 H (0-0) % Platelet Estimate Normal (NORMAL) Large Platelets Present Hypochromasia (manual) Slight Poikilocytosis (manual Slight Anisocytosis (manual) Slight Macrocytosis (manual) Slight PT 12.7 H (9.7-12.2) SECONDS INR 1.2 APTT 29 (21-34) SECONDS Sodium (132-148) mmol/L Potassium (3.6-5.2) mmol/L Chloride (98-107) mmol/L Carbon Dioxide (22-30) mmol/L Anion Gap (10-20) BUN (7-17) mg/dL Creatinine (0.7-1.2) mg/dL Est GFR ( Amer) Est GFR (Non-Af Amer) Random Glucose (65-105) mg/dL Calcium (8.6-10.4) mg/dl Blood Type A POSITIVE Antibody Screen Negative 05/27/18 Range/Units 05:52 WBC (4.8-10.8) K/uL RBC (3.80-5.20) Mil/uL Hgb (11.0-16.0) g/dL Hct (34.0-47.0) % MCV (81.0-99.0) fL MCH (27.0-31.0) pg MCHC (33.0-37.0) g/dL RDW (11.5-14.5) % Plt Count (130-400) K/uL MPV (7.2-11.7) fL Neut % (Auto) (50.0-75.0) % Lymph % (Auto) (20.0-40.0) % Edgar % (Auto) (0.0-10.0) % Eos % (Auto) (0.0-4.0) % Baso % (Auto) (0.0-2.0) % Neut # (Auto) (1.8-7.0) K/uL Lymph # (Auto) (1.0-4.3) K/uL Edgar # (Auto) (0.0-0.8) K/uL Eos # (Auto) (0.0-0.7) K/uL Baso # (Auto) (0.0-0.2) K/uL Neutrophils % (Manual) (50-75) % Band Neutrophils % (0-2) % Lymphocytes % (Manual) (20-40) % Monocytes % (Manual) (0-10) % Eosinophils % (Manual) (0-4) % Nucleated RBC % (0-0) % Platelet Estimate (NORMAL) Large Platelets Hypochromasia (manual) Poikilocytosis (manual Anisocytosis (manual) Macrocytosis (manual) PT (9.7-12.2) SECONDS INR APTT (21-34) SECONDS Sodium 136 (132-148) mmol/L Potassium 4.0 (3.6-5.2) mmol/L Chloride 101 (98-107) mmol/L Carbon Dioxide 26 (22-30) mmol/L Anion Gap 12 (10-20) BUN 55 H (7-17) mg/dL Creatinine 2.7 H (0.7-1.2) mg/dL Est GFR ( Amer) 21 Est GFR (Non-Af Amer) 17 Random Glucose 152 H (65-105) mg/dL Calcium 7.8 L (8.6-10.4) mg/dl Blood Type Antibody Screen Laboratory Results - last 24 hr 05/27/18 05/27/18 05/27/18 05:52 05:54 05:54 WBC 11.7 H RBC 2.64 L Hgb 8.9 L Hct 27.6 L MCV 104.5 H MCH 33.6 H MCHC 32.1 L RDW 16.2 H Plt Count 150 MPV 10.3 Neut % (Auto) 88.0 H Lymph % (Auto) 5.2 L Edgar % (Auto) 5.4 Eos % (Auto) 1.0 Baso % (Auto) 0.4 Neut # (Auto) 10.3 H Lymph # (Auto) 0.6 L Edgar # (Auto) 0.6 Eos # (Auto) 0.1 Baso # (Auto) 0.0 Neutrophils % (Manual) 90 H Band Neutrophils % 1 Lymphocytes % (Manual) 4 L Monocytes % (Manual) 4 Eosinophils % (Manual) 1 Nucleated RBC % 2 H Platelet Estimate Normal Large Platelets Present Hypochromasia (manual) Slight Poikilocytosis (manual Slight Anisocytosis (manual) Slight Macrocytosis (manual) Slight PT 12.7 H INR 1.2 APTT 29 Sodium 136 Potassium 4.0 Chloride 101 Carbon Dioxide 26 Anion Gap 12 BUN 55 H Creatinine 2.7 H Est GFR ( Amer) 21 Est GFR (Non-Af Amer) 17 Random Glucose 152 H Calcium 7.8 L Blood Type Antibody Screen 05/27/18 06:43 WBC RBC Hgb Hct MCV MCH MCHC RDW Plt Count MPV Neut % (Auto) Lymph % (Auto) Edgar % (Auto) Eos % (Auto) Baso % (Auto) Neut # (Auto) Lymph # (Auto) Edgar # (Auto) Eos # (Auto) Baso # (Auto) Neutrophils % (Manual) Band Neutrophils % Lymphocytes % (Manual) Monocytes % (Manual) Eosinophils % (Manual) Nucleated RBC % Platelet Estimate Large Platelets Hypochromasia (manual) Poikilocytosis (manual Anisocytosis (manual) Macrocytosis (manual) PT INR APTT Sodium Potassium Chloride Carbon Dioxide Anion Gap BUN Creatinine Est GFR ( Amer) Est GFR (Non-Af Amer) Random Glucose Calcium Blood Type A POSITIVE Antibody Screen Negative Radiology Impressions: Radiology Impressions Chest X-Ray 05/27/18 08:21 IMPRESSION: Increasing opacification of the left hemithorax with aeration of the left upper lobe; correlate for consolidation. The right hemithorax appears clear. Fingerstick Blood Sugar Results: 144 Critical Care Progress Note - Nutrition Nutrition: Nutrition Category Date Time Status Mechanically altered [Dysphagia/Modified Consistency Diets 05/27/18 Lunch Active Diet] [DIET] Assessment/Plan - Assessment and Plan (Free Text) Assessment: 72yo F. PMHx CHF, CAD, HTN, hyperlipidemia, hypothyroidism, DM type 2, CKD. p/w cellulitis that has progressed to septic shock, with streptococcal bacteremia and ATN. Started on dialysis (05/17) and plans for vermin exterminator HD, pending permacath placement. Extubated (05/20) and reintubated secondary to bradycardia. Extubated successfully on 05/25. Weaned off Dopamin ggt yesterday. Stable for transfer to Telemetry. Plan: Neuro: - Alert, oriented x3. Appears lethargic at times but able to follow simple commands - No gross deficits on exam Cardio: - Hx CABG, HTN, CHF, HLD - Hemodynamically stable - Acute CHF exacerbation, stable - Dr. Ramires consulted, recs appreciated - Echo 05/15: LV function severely reduced, diffuse hypokinesis. EF 20%. Septum dyskinetic and demonstrates flattening, elevated RV pressure. R ventricle, L and R atria dilated. Severe pulmonary HTN. - Off Dobutamine and Dopamine ggt now Pulm: - Extubated on 05/25. Breathing No signs of respiratory distress - Maintain O2 sat > 92% - Bronchodilators - Acute respiratory failure likely 2/2 aspiration of bilious vomit - Empiric antibiotics for Aspiration PNU - Blood cxs growing Group C strep, urine cx growing E.coli GI: -NPO -Glucerna tube feeds -Protonix Heme: -Dr. Duggan consulted for pancytopenia, recs appreciated -Procrit MWF -H/H stable, cont to trend, transfuse prn -Thrombocytopenia stable, cont to trend Renal: -Oliguria, ATN -Dr. Pereira consulted, recs appreciated -HD MWF. Plan for permacath placement tomorrow as pt will need half-way -[place] d/c'd ID: - Last Fever 100.5 at on 05/24 . Otherwise has remained afebrile - Tx possible aspiration PNA/VAP and UTI as noted above - ID consulted, Dr. Guevara, recs appreciated - Podiatry consulted, Dr. Zhu, for L lower leg cellulitis/blister formation, recs appreciate - Repeat Bcx from 05/19 negative to date - Ucx E.Coli (05/16), repeat Ucx negative - Azactam/Clindamycin for empiric coverage Endo: -Hx DM2 -Fingersticks q6h -ISS -Hypoglycemic protocol PPX: - GI ppx Protonix - DVT ppx Heparin SC Pt seen, examined with, and plan discussed with Dr. Jasvir Mensah, PGY2 <Julien Fuller - Last Filed: 05/27/18 18:32> CCU Objective - Vital Signs / Intake & Output Vital Signs (Last 4 hours): Vital Signs Temp Pulse Resp BP Pulse Ox 05/27/18 17:18 92 H 15 106/49 L 05/27/18 16:18 88 14 112/48 L 94 L 05/27/18 16:00 97.4 F L 100 H 4 L 05/27/18 15:18 86 12 117/51 L 100 Intake and Output (Last 8hrs): Intake & Output 05/27/18 05/27/18 05/27/18 06:59 14:59 22:59 Intake Total 50 400 150 Output Total 2 Balance 48 400 150 Weight 150 lb 0.012 oz Intake: Intake, IV Amount 50 100 50 Right Trialysis Y-Port 50 100 50 Oral 0 300 100 Output: Urine/Stool Mix 2 Other: # Voids Urine, Voided 0 0 # Bowel Movements 0 1 0 - Medications Active Medications: Active Medications Generic Name Dose Route Start Last Admin Trade Name Freq PRN Reason Stop Dose Admin Acetaminophen 650 mg 05/18/18 00:30 05/27/18 12:38 Tylenol 650mg/20.3ml Solution Ud PO 650 mg Q6 PRN Administration Fever >100.4 F or Pain Albuterol/Ipratropium 3 ml 05/21/18 14:00 05/25/18 14:12 Duoneb 3 Mg/0.5 Mg (3 Ml) Ud INH Not Given RQ6 LAURENCE Dextrose 0 ml 05/16/18 18:32 05/18/18 18:17 Dextrose 50% Inj IV 50 ml STAT PRN Administration Hypoglycemia Protocol Protocol Dextrose 0 gm 05/16/18 18:32 Glutose 15 PO ONCE PRN Hypoglycemia Protocol Protocol Epoetin Anthony 10,000 unit 05/20/18 15:30 05/27/18 10:18 Procrit IV 10,000 unit MWF [facility]ENCE Administration Ergocalciferol 1 cap 05/18/18 10:45 05/25/18 10:05 Drisdol 50,000 Intl Units Cap PO 1 cap Q7D LAURENCE Administration Ferrous Gluconate 324 mg 05/18/18 14:00 05/27/18 17:06 Fergon PO 324 mg TID LAURENCE Administration Glucagon 0 mg 05/16/18 18:32 Glucagen Diagnostic Kit IM STAT PRN Hypoglycemia Protocol Protocol Heparin Sodium (Porcine) 5,000 units 05/25/18 22:00 05/27/18 14:52 Heparin SC 5,000 units Q8 LAURENCE Administration Aztreonam 1 gm/ Sodium 100 mls @ 100 mls/hr 05/17/18 20:00 05/27/18 08:30 Chloride IVPB 100 mls/hr Q12H LAURENCE Administration Protocol Clindamycin Phosphate 600 mg/ 54 mls @ 100 mls/hr 05/17/18 22:00 05/27/18 14:52 Sodium Chloride IVPB 100 mls/hr Q8H LAURENCE Administration Protocol Dopamine HCl/Dextrose 400 mg in 250 mls @ 4.305 mls/hr 05/25/18 14:00 05/26/18 10:30 Dopamine 400mg/250ml D5w IV 0 mcg/kg/min .Q24H PRN 0 mls/hr TITRATE PER MD ORDER Titration Protocol 2 MCG/KG/MIN Sodium Chloride 1,000 mls @ 50 mls/hr 05/27/18 23:55 Sodium Chloride 0.9% IV .Q20H LAURENCE Insulin Aspart 0 unit 05/27/18 07:30 05/27/18 17:05 Novolog SC 2 units ACHS LAURENCE Administration Protocol Montelukast Sodium 10 mg 05/21/18 22:00 05/26/18 21:15 Singulair PO 10 mg HS LAURENCE Administration Pantoprazole Sodium 40 mg 05/17/18 10:00 05/27/18 09:35 Protonix Inj IVP 40 mg DAILY LAURENCE Administration Vitamin B Complex/Vit C/Folic Acid 1 tab 05/19/18 08:00 05/27/18 08:00 Nephro-Pancho PO 1 tab 0800 LAURENCE Administration - Patient Studies Lab Studies: Lab Studies 05/27/18 05/27/18 05/27/18 Range/Units 06:43 05:54 05:54 WBC 11.7 H (4.8-10.8) K/uL RBC 2.64 L (3.80-5.20) Mil/uL Hgb 8.9 L (11.0-16.0) g/dL Hct 27.6 L (34.0-47.0) % MCV 104.5 H (81.0-99.0) fL MCH 33.6 H (27.0-31.0) pg MCHC 32.1 L (33.0-37.0) g/dL RDW 16.2 H (11.5-14.5) % Plt Count 150 (130-400) K/uL MPV 10.3 (7.2-11.7) fL Neut % (Auto) 88.0 H (50.0-75.0) % Lymph % (Auto) 5.2 L (20.0-40.0) % Edgar % (Auto) 5.4 (0.0-10.0) % Eos % (Auto) 1.0 (0.0-4.0) % Baso % (Auto) 0.4 (0.0-2.0) % Neut # (Auto) 10.3 H (1.8-7.0) K/uL Lymph # (Auto) 0.6 L (1.0-4.3) K/uL Edgar # (Auto) 0.6 (0.0-0.8) K/uL Eos # (Auto) 0.1 (0.0-0.7) K/uL Baso # (Auto) 0.0 (0.0-0.2) K/uL Neutrophils % (Manual) 90 H (50-75) % Band Neutrophils % 1 (0-2) % Lymphocytes % (Manual) 4 L (20-40) % Monocytes % (Manual) 4 (0-10) % Eosinophils % (Manual) 1 (0-4) % Nucleated RBC % 2 H (0-0) % Platelet Estimate Normal (NORMAL) Large Platelets Present Hypochromasia (manual) Slight Poikilocytosis (manual Slight Anisocytosis (manual) Slight Macrocytosis (manual) Slight PT 12.7 H (9.7-12.2) SECONDS INR 1.2 APTT 29 (21-34) SECONDS Sodium (132-148) mmol/L Potassium (3.6-5.2) mmol/L Chloride (98-107) mmol/L Carbon Dioxide (22-30) mmol/L Anion Gap (10-20) BUN (7-17) mg/dL Creatinine (0.7-1.2) mg/dL Est GFR ( Amer) Est GFR (Non-Af Amer) Random Glucose (65-105) mg/dL Calcium (8.6-10.4) mg/dl Blood Type A POSITIVE Antibody Screen Negative 05/27/18 Range/Units 05:52 WBC (4.8-10.8) K/uL RBC (3.80-5.20) Mil/uL Hgb (11.0-16.0) g/dL Hct (34.0-47.0) % MCV (81.0-99.0) fL MCH (27.0-31.0) pg MCHC (33.0-37.0) g/dL RDW (11.5-14.5) % Plt Count (130-400) K/uL MPV (7.2-11.7) fL Neut % (Auto) (50.0-75.0) % Lymph % (Auto) (20.0-40.0) % Edgar % (Auto) (0.0-10.0) % Eos % (Auto) (0.0-4.0) % Baso % (Auto) (0.0-2.0) % Neut # (Auto) (1.8-7.0) K/uL Lymph # (Auto) (1.0-4.3) K/uL Edgar # (Auto) (0.0-0.8) K/uL Eos # (Auto) (0.0-0.7) K/uL Baso # (Auto) (0.0-0.2) K/uL Neutrophils % (Manual) (50-75) % Band Neutrophils % (0-2) % Lymphocytes % (Manual) (20-40) % Monocytes % (Manual) (0-10) % Eosinophils % (Manual) (0-4) % Nucleated RBC % (0-0) % Platelet Estimate (NORMAL) Large Platelets Hypochromasia (manual) Poikilocytosis (manual Anisocytosis (manual) Macrocytosis (manual) PT (9.7-12.2) SECONDS INR APTT (21-34) SECONDS Sodium 136 (132-148) mmol/L Potassium 4.0 (3.6-5.2) mmol/L Chloride 101 (98-107) mmol/L Carbon Dioxide 26 (22-30) mmol/L Anion Gap 12 (10-20) BUN 55 H (7-17) mg/dL Creatinine 2.7 H (0.7-1.2) mg/dL Est GFR ( Amer) 21 Est GFR (Non-Af Amer) 17 Random Glucose 152 H (65-105) mg/dL Calcium 7.8 L (8.6-10.4) mg/dl Blood Type Antibody Screen Laboratory Results - last 24 hr 05/27/18 05/27/18 05/27/18 05:52 05:54 05:54 WBC 11.7 H RBC 2.64 L Hgb 8.9 L Hct 27.6 L MCV 104.5 H MCH 33.6 H MCHC 32.1 L RDW 16.2 H Plt Count 150 MPV 10.3 Neut % (Auto) 88.0 H Lymph % (Auto) 5.2 L Edgar % (Auto) 5.4 Eos % (Auto) 1.0 Baso % (Auto) 0.4 Neut # (Auto) 10.3 H Lymph # (Auto) 0.6 L Edgar # (Auto) 0.6 Eos # (Auto) 0.1 Baso # (Auto) 0.0 Neutrophils % (Manual) 90 H Band Neutrophils % 1 Lymphocytes % (Manual) 4 L Monocytes % (Manual) 4 Eosinophils % (Manual) 1 Nucleated RBC % 2 H Platelet Estimate Normal Large Platelets Present Hypochromasia (manual) Slight Poikilocytosis (manual Slight Anisocytosis (manual) Slight Macrocytosis (manual) Slight PT 12.7 H INR 1.2 APTT 29 Sodium 136 Potassium 4.0 Chloride 101 Carbon Dioxide 26 Anion Gap 12 BUN 55 H Creatinine 2.7 H Est GFR ( Amer) 21 Est GFR (Non-Af Amer) 17 Random Glucose 152 H Calcium 7.8 L Blood Type Antibody Screen 05/27/18 06:43 WBC RBC Hgb Hct MCV MCH MCHC RDW Plt Count MPV Neut % (Auto) Lymph % (Auto) Edgar % (Auto) Eos % (Auto) Baso % (Auto) Neut # (Auto) Lymph # (Auto) Edgar # (Auto) Eos # (Auto) Baso # (Auto) Neutrophils % (Manual) Band Neutrophils % Lymphocytes % (Manual) Monocytes % (Manual) Eosinophils % (Manual) Nucleated RBC % Platelet Estimate Large Platelets Hypochromasia (manual) Poikilocytosis (manual Anisocytosis (manual) Macrocytosis (manual) PT INR APTT Sodium Potassium Chloride Carbon Dioxide Anion Gap BUN Creatinine Est GFR ( Amer) Est GFR (Non-Af Amer) Random Glucose Calcium Blood Type A POSITIVE Antibody Screen Negative Radiology Impressions: Radiology Impressions Chest X-Ray 05/27/18 08:21 IMPRESSION: Increasing opacification of the left hemithorax with aeration of the left upper lobe; correlate for consolidation. The right hemithorax appears clear. Critical Care Progress Note - Nutrition Nutrition: Nutrition Category Date Time Status Mechanically altered [Dysphagia/Modified Consistency Diets 05/27/18 Lunch Active Diet] [DIET] NPO Diet [DIET] Diets 05/28/18 Breakfast Active Assessment/Plan (1) Cellulitis of left lower extremity Current Visit: Yes Status: Acute Attending/Attestation - Attestation I have personally seen and examined this patient.: Yes I have fully participated in the care of the patient.: Yes I have reviewed all pertinent clinical information: Yes Notes (Text): 05/27/18 18:30 I have seen and examined the patient. Medical records, lab studies, and imaging were reviewed by me and a management plan was formulated on multidisciplinary rounds with resident Dr. Mensah. I agree with their documented assessment and plan. Patient successfully extubated (05/25) and doing well. Still gets weak with every dialysis treatment. Scheduled for permacath placement. Clinically stable for downgrade to telemtry floors. Critical Care Time 35 minutes. Multi-disciplinary rounds were performed with house staff, nursing, speech therapy, respiratory therapy, pharmacy and nutrition with integrated input from the primary team/attending and other consulting services. The documented time is cumulative and includes review of patient data/exams/labs/chart review and examination of the patient on rounds and throughout the day; time is exclusive of any procedures or teaching time.
--- NOTE | 2018-05-27 18:02 | CP.PCM.PN ---
Subjective - Date & Time of Evaluation Date of Evaluation: 05/27/18 Time of Evaluation: 10:00 - Subjective Subjective: seen on rounds discussed with family Objective - Vital Signs/Intake and Output Vital Signs (last 24 hours): Temp Pulse Resp BP Pulse Ox 97.4 F L 92 H 15 106/49 L 94 L 05/27/18 16:00 05/27/18 17:18 05/27/18 17:18 05/27/18 17:18 05/27/18 16:18 Intake and Output: 05/27/18 05/27/18 06:59 18:59 Intake Total 400 550 Output Total 2 Balance 398 550 - Medications Medications: Current Medications Acetaminophen (Tylenol 650mg/20.3ml Solution Ud) 650 mg PO Q6 PRN PRN Reason: Fever >100.4 F or Pain Last Admin: 05/27/18 12:38 Dose: 650 mg Albuterol/Ipratropium (Duoneb 3 Mg/0.5 Mg (3 Ml) Ud) 3 ml INH RQ6 [facility] Last Admin: 05/25/18 14:12 Dose: Not Given Dextrose (Dextrose 50% Inj) 0 ml IV STAT PRN; Protocol PRN Reason: Hypoglycemia Protocol Last Admin: 05/18/18 18:17 Dose: 50 ml Dextrose (Glutose 15) 0 gm PO ONCE PRN; Protocol PRN Reason: Hypoglycemia Protocol Epoetin Anthony (Procrit) 10,000 unit IV MWF [facility] Last Admin: 05/27/18 10:18 Dose: 10,000 unit Ergocalciferol (Drisdol 50,000 Intl Units Cap) 1 cap PO Q7D [facility] Last Admin: 05/25/18 10:05 Dose: 1 cap Ferrous Gluconate (Fergon) 324 mg PO TID [facility] Last Admin: 05/27/18 17:06 Dose: 324 mg Glucagon (Glucagen Diagnostic Kit) 0 mg IM STAT PRN; Protocol PRN Reason: Hypoglycemia Protocol Heparin Sodium (Porcine) (Heparin) 5,000 units SC Q8 [facility] Last Admin: 05/27/18 14:52 Dose: 5,000 units Aztreonam 1 gm/ Sodium (Chloride) 100 mls @ 100 mls/hr IVPB Q12H [facility]; Protocol Last Admin: 05/27/18 08:30 Dose: 100 mls/hr Clindamycin Phosphate 600 mg/ (Sodium Chloride) 54 mls @ 100 mls/hr IVPB Q8H [facility]; Protocol Last Admin: 05/27/18 14:52 Dose: 100 mls/hr Dopamine HCl/Dextrose (Dopamine 400mg/250ml D5w) 400 mg in 250 mls @ 4.305 mls/hr IV .Q24H PRN; Protocol PRN Reason: TITRATE PER MD ORDER Last Titration: 05/26/18 10:30 Dose: 0 mcg/kg/min, 0 mls/hr Sodium Chloride (Sodium Chloride 0.9%) 1,000 mls @ 50 mls/hr IV .Q20H [facility] Insulin Aspart (Novolog) 0 unit SC ACHS [facility]; Protocol Last Admin: 05/27/18 17:05 Dose: 2 units Montelukast Sodium (Singulair) 10 mg PO HS [facility] Last Admin: 05/26/18 21:15 Dose: 10 mg Pantoprazole Sodium (Protonix Inj) 40 mg IVP DAILY [facility] Last Admin: 05/27/18 09:35 Dose: 40 mg Vitamin B Complex/Vit C/Folic Acid (Nephro-Pancho) 1 tab PO 0800 [facility] Last Admin: 05/27/18 08:00 Dose: 1 tab - Labs Labs: 05/27/18 05:54 05/27/18 05:52 PT 12.7 SECONDS (9.7-12.2) H 05/27/18 05:54 INR 1.2 05/27/18 05:54 APTT 29 SECONDS (21-34) 05/27/18 05:54 - Constitutional Appears: Non-toxic, Cachectic, Chronically Ill - Head Exam Head Exam: ATRAUMATIC, NORMAL INSPECTION, NORMOCEPHALIC - Eye Exam Eye Exam: EOMI, Normal appearance, PERRL Pupil Exam: NORMAL ACCOMODATION, PERRL - ENT Exam ENT Exam: Mucous Membranes Moist, Normal Exam - Neck Exam Neck Exam: Full ROM, Normal Inspection. absent: Lymphadenopathy - Respiratory Exam Respiratory Exam: Clear to Ausculation Bilateral, NORMAL BREATHING PATTERN - Cardiovascular Exam Cardiovascular Exam: REGULAR RHYTHM, +S1, +S2. absent: Murmur - GI/Abdominal Exam GI & Abdominal Exam: Soft, Normal Bowel Sounds. absent: Tenderness - Rectal Exam Rectal Exam: Deferred - Exam Exam: NORMAL INSPECTION - Extremities Exam Extremities Exam: Full ROM, Normal Capillary Refill, Normal Inspection. absent: Joint Swelling, Pedal Edema - Back Exam Back Exam: NORMAL INSPECTION - Neurological Exam Neurological Exam: Alert, Awake, CN II-XII Intact. absent: Normal Gait, Oriented x3 - Psychiatric Exam Psychiatric exam: Normal Affect, Normal Mood - Skin Skin Exam: Dry, Warm. absent: Normal Color Assessment and Plan (1) Multi-organ system dysfunction Status: Acute (2) Septic shock Status: Acute (3) Cellulitis of left lower extremity Status: Acute (4) Coagulopathy Status: Acute (5) Pancytopenia Status: Acute (6) Sepsis Status: Acute (7) Respiratory failure requiring intubation Status: Acute (8) Respiratory failure with hypoxia and hypercapnia Status: Acute (9) ARRON (acute kidney injury) Status: Acute - Assessment and Plan (Free Text) Assessment: s/p septic shock with multiorgan system failure now on HD but off vent grew strep grp C in blood and E Coli urine cont IV antibiotics
[2018-05-27] MEDS: Lidocaine 5% Patch TD SCH (21:58)
[2018-05-28] MEDS: Sodium Chloride 0.9% 1,000 ML IV SCH ×2 (00:10→21:17)
[2018-05-28 06:10] LABS: BASO % 0.4 % (0.0-2.0); EOS # 0.1 K/uL (0.0-0.7); EOS % 0.6 % (0.0-4.0); LYMPH # 0.7 K/uL (1.0-4.3); LYMPH % 6.4 % (20.0-40.0); MEAN CELL VOLUME 103.8 fL (81.0-99.0); MEAN CORPUSCULAR HEMOGLOBIN 34.7 pg (27.0-31.0); MEAN CORPUSCULAR HGB CONC 33.4 g/dL (33.0-37.0); MEAN PLATELET VOLUME 10.5 fL (7.2-11.7); MONO # 0.6 K/uL (0.0-0.8); MONO % 6.2 % (0.0-10.0); NEUT # 9.1 K/uL (1.8-7.0); NEUT % 86.4 % (50.0-75.0); NRBC % 0.4 % (0.0-2.0); PLATELET COUNT 153 K/uL (130-400); RBC 2.58 Mil/uL (3.80-5.20); WHITE BLOOD COUNT 10.5 K/uL (4.8-10.8)
[2018-05-28 06:41] LABS: CALCIUM 7.4 mg/dl (8.6-10.4)
[2018-05-28 07:39] LABS: INR 1.2; PROTHROMBIN TIME 13.1 SECONDS (9.7-12.2)
[2018-05-28] MEDS: Aztreonam 1 GM in Sodium Chloride 0.9% 100 ML IVPB SCH ×2 (08:00→20:19)
[2018-05-28] MEDS: (Novolog) Insulin Aspart, Recombinant 100 u/ml 10 ml vial SC SCH ×4 (08:30→21:09)
[2018-05-28 08:37] LABS: ANISOCYTOSIS SLIGHT; BANDS 4 % (0-2); EOSINOPHIL 2 % (0-4); LYMPHOCYTE 3 % (20-40); MONOCYTE 7 % (0-10); NEUTROPHIL 84 % (50-75); OVALOCYTES SLIGHT; TOTAL CELLS COUNTED 100
[2018-05-28 08:41] LABS: PLATELET ESTIMATE NORMAL (NORMAL)
[2018-05-28] MEDS: Multivitamin Vitamin B Complex (Nephro-Vite) Tab PO SCH (08:50)
--- NOTE | 2018-05-28 09:27 | CP.PCM.PN ---
Subjective - Date & Time of Evaluation Date of Evaluation: 05/28/18 Time of Evaluation: 09:23 - Subjective Subjective: PGY3 progress note for Dr. Harp Pt seen and examined. patient downgraded for tele yesterday. Patient was admitted to ICU for Septic shock 2/2 cellulitis. Patient was bectermic with blood cultures growing strep and urine cultures growing e coli (repeat urine cultures neg). Due to the septic shock, patient developed ESRD and was started on HD, scheduled for MWF. Patient is scheduled to get permcath placed today by vascular surgery. No acute events overnight. patient resting comfortably but wakes up and answers questions. Denies having any CP, SOB, abd pain, N/V/DC. Patient does continue to complain of left LE pain. Objective - Vital Signs/Intake and Output Vital Signs (last 24 hours): Temp Pulse Resp BP Pulse Ox 98.0 F 90 17 113/53 L 89 L 05/28/18 04:00 05/28/18 07:00 05/28/18 07:00 05/28/18 06:19 05/28/18 06:19 Intake and Output: 05/28/18 05/28/18 06:59 18:59 Intake Total 800 Output Total 0 Balance 800 - Medications Medications: Current Medications Acetaminophen (Tylenol 650mg/20.3ml Solution Ud) 650 mg PO Q6 PRN PRN Reason: Fever >100.4 F or Pain Last Admin: 05/27/18 18:34 Dose: 650 mg Albuterol/Ipratropium (Duoneb 3 Mg/0.5 Mg (3 Ml) Ud) 3 ml INH RQ6 [facility] Last Admin: 05/25/18 14:12 Dose: Not Given Dextrose (Dextrose 50% Inj) 0 ml IV STAT PRN; Protocol PRN Reason: Hypoglycemia Protocol Last Admin: 05/18/18 18:17 Dose: 50 ml Dextrose (Glutose 15) 0 gm PO ONCE PRN; Protocol PRN Reason: Hypoglycemia Protocol Epoetin Anthony (Procrit) 10,000 unit IV MWF [facility] Last Admin: 05/27/18 10:18 Dose: 10,000 unit Ergocalciferol (Drisdol 50,000 Intl Units Cap) 1 cap PO Q7D [facility] Last Admin: 05/25/18 10:05 Dose: 1 cap Ferrous Gluconate (Fergon) 324 mg PO TID [facility] Last Admin: 05/27/18 17:06 Dose: 324 mg Glucagon (Glucagen Diagnostic Kit) 0 mg IM STAT PRN; Protocol PRN Reason: Hypoglycemia Protocol Heparin Sodium (Porcine) (Heparin) 5,000 units SC Q8 [facility] Last Admin: 05/27/18 22:00 Dose: 5,000 units Aztreonam 1 gm/ Sodium (Chloride) 100 mls @ 100 mls/hr IVPB Q12H [facility]; Protocol Last Admin: 05/27/18 19:51 Dose: 100 mls/hr Clindamycin Phosphate 600 mg/ (Sodium Chloride) 54 mls @ 100 mls/hr IVPB Q8H [facility]; Protocol Last Admin: 05/28/18 06:08 Dose: 100 mls/hr Sodium Chloride (Sodium Chloride 0.9%) 1,000 mls @ 50 mls/hr IV .Q20H [facility] Last Admin: 05/28/18 00:10 Dose: 50 mls/hr Insulin Aspart (Novolog) 0 unit SC ACHS [facility]; Protocol Last Admin: 05/27/18 21:31 Dose: Not Given Lidocaine (Lidoderm) 1 ea TD Q24H [facility] Last Admin: 05/27/18 21:58 Dose: 1 ea Montelukast Sodium (Singulair) 10 mg PO HS [facility] Last Admin: 05/27/18 22:06 Dose: 10 mg Pantoprazole Sodium (Protonix Inj) 40 mg IVP DAILY [facility] Last Admin: 05/27/18 09:35 Dose: 40 mg Vitamin B Complex/Vit C/Folic Acid (Nephro-Pancho) 1 tab PO 0800 [facility] Last Admin: 05/27/18 08:00 Dose: 1 tab - Labs Labs: 05/28/18 06:02 05/28/18 06:02 PT 13.1 SECONDS (9.7-12.2) H 05/28/18 06:02 INR 1.2 05/28/18 06:02 APTT 29 SECONDS (21-34) 05/28/18 06:02 - Constitutional Appears: Non-toxic, No Acute Distress - Head Exam Head Exam: ATRAUMATIC, NORMOCEPHALIC - ENT Exam ENT Exam: Mucous Membranes Moist - Respiratory Exam Respiratory Exam: Rales. absent: Accessory Muscle Use, Clear to Ausculation Bilateral, Rhonchi, Wheezes, Respiratory Distress - Cardiovascular Exam Cardiovascular Exam: REGULAR RHYTHM, +S1, +S2. absent: Gallop, Rubs, Murmur - GI/Abdominal Exam GI & Abdominal Exam: Soft, Normal Bowel Sounds. absent: Distended, Firm, Guarding, Rigid, Tenderness, Organomegaly - Extremities Exam Additional comments: left leg cellulitis with bandage in place - Neurological Exam Neurological Exam: Alert, Awake - Psychiatric Exam Psychiatric exam: Normal Affect, Normal Mood - Skin Skin Exam: Normal Color, Warm Assessment and Plan - Assessment and Plan (Free Text) Assessment: 72 year old female with PMHx of CHF EF of 20%, CAD, HTN, HLD, hypothyroid, DM, CKD on HD admitted for septic shock 2/2 cellulitis. Bacteremia 2/2 cellulitis vs. UTI - Improving - S/P extubation x 2. - WBC count in resolving, 10.5 today - Blood cultures on 05/15/18 positive for Strep. Repeat blood cx on 05/19 negative - Urine culture on 05/16 showed E coli - Currently pt on Aztreonam (start date 05/17) and Clindamycin (start date 05/17) - Tylenol prn for fever - ID, Dr. Guevara is consulted - Wound care for LE cellulitis ESRD on HD MWF - scheduled for permcath placement today - social work on case for HD placement - Continue ergocalciferol and nephrovite and Procrit - Nephro, Dr. Castro is consulted CHF with EF of 20% s/p - Echo done on 05/19 showed EF of 30-35% with moderate MR - Cardio, Dr. Ramires is consulted - Will consider starting statin Hypothyroid - TSH checked on admission was 14 - Will repeat TSH tomorrow and consider restarting Levothyroxine DM - Hgb a1c is 6.5 - Currently on ISS - Glucerna tube feeding - Hypoglycemic protocol ordered Pancytopenia - Heme/onc, Dr. Duggan is consulted - Continue to trend - No evidence of bleeding - Currently on Ferrous gluconate PPx: - Heparin (held for OR today) - SCD contraindicated due to cellulitis in LE - Protonix Case discussed with attending, Dr. Harp
--- NOTE | 2018-05-28 10:55 | CP.PCM.PN ---
Subjective - Date & Time of Evaluation Date of Evaluation: 05/28/18 Time of Evaluation: 10:55 - Subjective Subjective: Nephrology Follow up Note HPI: 72-year-old female with a history of CHF, CAD, hypertension, hyperlipidemia, history of thyroid disease and renal disease, patient admitted to the hospital with a complaining of left lower extremity pain swelling of one day duration along with fever, followed by code sepsis, hypotension leading to resp distress and current intubation. Hx is obtained from charts. currrently intubated on pressors unknown baseline kidney disease, cr is now 3.1 UOP 10-15 cc per hour. on iv fluids and pressors Past medical history: Had a history of congestive heart failure, coronary artery disease, diabetes, hypertension, hypothyroidism, renal insufficiency. Patient has allergic to penicillin Surgical history include coronary artery bypass grafting x2 Social history: No smoking or drinking history noted Family history significant for diabetes and heart disease Medications at this time not available. 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 extubated 05/25/18 she feels better. denies SOB On examination: Patient is currently extubated. not in distress. comfortable Chest B/L air entry improved Heart sounds are regular s1s2 normal Abdomen soft non tender. edema ++ feets better in terms of edema. b/l legs dressed awake calm Assesment: stable oligoanuric ARRON likely ATN/septic shock with cellulitis and ? 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 to plan for permacath placement, consulted vascular surgery. SW consult for outpt HD placement. maintain hemodynamics stable. Avoid hypotension. Patient not on ACEI/ARB due to recent ARRON Monitor Input/Output, daily weights and renal function with basic metabolic panel c/w Iron, MVI. PRBC as needed. epogen ordered supplement Vit D supplement lytes as needed. Dose meds/antibiotics for reduced GFR. Avoid fleets enema/magnesium based laxatives. Avoid nephrotoxins/NSAIDs/ iodinated contrast (unless needed emergently) Glycemic control Further work up/management as per primary team Thanks for allowing me to participate in care of your patient. Will follow patient with you. Please call if any Qs. had d/w team and family Dr Edin Castro Office: [phone] Objective - Vital Signs/Intake and Output Vital Signs (last 24 hours): Temp Pulse Resp BP Pulse Ox 97.2 F L 84 12 131/62 100 05/28/18 08:00 05/28/18 09:29 05/28/18 09:29 05/28/18 09:29 05/28/18 09:29 Intake and Output: 05/28/18 05/28/18 06:59 18:59 Intake Total 800 Output Total 0 Balance 800 - Medications Medications: Current Medications Acetaminophen (Tylenol 650mg/20.3ml Solution Ud) 650 mg PO Q6 PRN PRN Reason: Fever >100.4 F or Pain Last Admin: 05/27/18 18:34 Dose: 650 mg Albuterol/Ipratropium (Duoneb 3 Mg/0.5 Mg (3 Ml) Ud) 3 ml INH RQ6 [facility] Last Admin: 05/25/18 14:12 Dose: Not Given Dextrose (Dextrose 50% Inj) 0 ml IV STAT PRN; Protocol PRN Reason: Hypoglycemia Protocol Last Admin: 05/18/18 18:17 Dose: 50 ml Dextrose (Glutose 15) 0 gm PO ONCE PRN; Protocol PRN Reason: Hypoglycemia Protocol Epoetin Anthony (Procrit) 10,000 unit IV MWF [facility] Last Admin: 05/27/18 10:18 Dose: 10,000 unit Ergocalciferol (Drisdol 50,000 Intl Units Cap) 1 cap PO Q7D [facility] Last Admin: 05/25/18 10:05 Dose: 1 cap Ferrous Gluconate (Fergon) 324 mg PO TID [facility] Last Admin: 05/28/18 09:00 Dose: 324 mg Glucagon (Glucagen Diagnostic Kit) 0 mg IM STAT PRN; Protocol PRN Reason: Hypoglycemia Protocol Heparin Sodium (Porcine) (Heparin) 5,000 units SC Q8 [facility] Last Admin: 05/27/18 22:00 Dose: 5,000 units Aztreonam 1 gm/ Sodium (Chloride) 100 mls @ 100 mls/hr IVPB Q12H [facility]; Protocol Last Admin: 05/28/18 08:00 Dose: 100 mls/hr Clindamycin Phosphate 600 mg/ (Sodium Chloride) 54 mls @ 100 mls/hr IVPB Q8H [facility]; Protocol Last Admin: 05/28/18 06:08 Dose: 100 mls/hr Sodium Chloride (Sodium Chloride 0.9%) 1,000 mls @ 50 mls/hr IV .Q20H [facility] Last Admin: 05/28/18 00:10 Dose: 50 mls/hr Insulin Aspart (Novolog) 0 unit SC ACHS [facility]; Protocol Last Admin: 05/27/18 21:31 Dose: Not Given Lidocaine (Lidoderm) 1 ea TD Q24H [facility] Last Admin: 05/27/18 21:58 Dose: 1 ea Montelukast Sodium (Singulair) 10 mg PO HS [facility] Last Admin: 05/27/18 22:06 Dose: 10 mg Pantoprazole Sodium (Protonix Inj) 40 mg IVP DAILY [facility] Last Admin: 05/27/18 09:35 Dose: 40 mg Vitamin B Complex/Vit C/Folic Acid (Nephro-Pancho) 1 tab PO 0800 [facility] Last Admin: 05/28/18 08:50 Dose: 1 tab - Labs Labs: 05/28/18 06:02 05/28/18 06:02 PT 13.1 SECONDS (9.7-12.2) H 05/28/18 06:02 INR 1.2 05/28/18 06:02 APTT 29 SECONDS (21-34) 05/28/18 06:02
[2018-05-28] MEDS ORDERED: Lidocaine Hydrochloride 10 ML INJ ONE (13:15)
[2018-05-28] MEDS ORDERED: HEPARIN-NS 5,000 UNITS/500 ML 5,000 UNIT/500 ML BAG IV ONE (13:15)
[2018-05-28] MEDS ORDERED: Midazolam 2 MG/2 ML VIAL ONE ×2 (13:37→13:45)
[2018-05-28] MEDS ORDERED: Iohexol 240 (50 ml) ONE (13:38)
[2018-05-28] MEDS ORDERED: Sodium Chloride 0.9% 1,000 ML IV ONE (14:26)
--- NOTE | 2018-05-28 14:29 | CP.PCM.PN ---
Subjective - Date & Time of Evaluation Date of Evaluation: 05/28/18 Time of Evaluation: 14:24 - Subjective Subjective: Podiatry Progress Note for Dr. Zhu 72F seen and evaluated at bedside for b/l leg swelling with drained serous liquid filled bullae of left leg. Patient is accompanied by her daughter at this time. Per nursing, no acute overnight events. Patient is awake and alert. Denies any leg pain at this time Objective - Vital Signs/Intake and Output Vital Signs (last 24 hours): Temp Pulse Resp BP Pulse Ox 97.6 F 98 H 14 102/69 81 L 05/28/18 12:00 05/28/18 13:00 05/28/18 13:00 05/28/18 12:18 05/28/18 12:18 Intake and Output: 05/28/18 05/28/18 06:59 18:59 Intake Total 800 Output Total 0 Balance 800 - Medications Medications: Current Medications Acetaminophen (Tylenol 650mg/20.3ml Solution Ud) 650 mg PO Q6 PRN PRN Reason: Fever >100.4 F or Pain Last Admin: 05/27/18 18:34 Dose: 650 mg Albuterol/Ipratropium (Duoneb 3 Mg/0.5 Mg (3 Ml) Ud) 3 ml INH RQ6 [facility] Last Admin: 05/25/18 14:12 Dose: Not Given Dextrose (Dextrose 50% Inj) 0 ml IV STAT PRN; Protocol PRN Reason: Hypoglycemia Protocol Last Admin: 05/18/18 18:17 Dose: 50 ml Dextrose (Glutose 15) 0 gm PO ONCE PRN; Protocol PRN Reason: Hypoglycemia Protocol Epoetin Anthony (Procrit) 10,000 unit IV MWF [facility] Last Admin: 05/27/18 10:18 Dose: 10,000 unit Ergocalciferol (Drisdol 50,000 Intl Units Cap) 1 cap PO Q7D [facility] Last Admin: 05/25/18 10:05 Dose: 1 cap Ferrous Gluconate (Fergon) 324 mg PO TID [facility] Last Admin: 05/28/18 13:00 Dose: Not Given Glucagon (Glucagen Diagnostic Kit) 0 mg IM STAT PRN; Protocol PRN Reason: Hypoglycemia Protocol Heparin Sodium (Porcine) (Heparin) 5,000 units SC Q8 [facility] Last Admin: 05/27/18 22:00 Dose: 5,000 units Aztreonam 1 gm/ Sodium (Chloride) 100 mls @ 100 mls/hr IVPB Q12H [facility]; Protocol Last Admin: 05/28/18 08:00 Dose: 100 mls/hr Clindamycin Phosphate 600 mg/ (Sodium Chloride) 54 mls @ 100 mls/hr IVPB Q8H [facility]; Protocol Last Admin: 05/28/18 06:08 Dose: 100 mls/hr Sodium Chloride (Sodium Chloride 0.9%) 1,000 mls @ 50 mls/hr IV .Q20H [facility] Last Admin: 05/28/18 00:10 Dose: 50 mls/hr Insulin Aspart (Novolog) 0 unit SC ACHS [facility]; Protocol Last Admin: 05/28/18 12:30 Dose: Not Given Lidocaine (Lidoderm) 1 ea TD Q24H [facility] Last Admin: 05/27/18 21:58 Dose: 1 ea Montelukast Sodium (Singulair) 10 mg PO HS [facility] Last Admin: 05/27/18 22:06 Dose: 10 mg Pantoprazole Sodium (Protonix Inj) 40 mg IVP DAILY [facility] Last Admin: 05/27/18 09:35 Dose: 40 mg Vitamin B Complex/Vit C/Folic Acid (Nephro-Pancho) 1 tab PO 0800 [facility] Last Admin: 05/28/18 08:50 Dose: 1 tab - Labs Labs: 05/28/18 06:02 05/28/18 06:02 PT 13.1 SECONDS (9.7-12.2) H 05/28/18 06:02 INR 1.2 05/28/18 06:02 APTT 29 SECONDS (21-34) 05/28/18 06:02 - Constitutional Appears: Well, Non-toxic, No Acute Distress - Extremities Exam Additional comments: LLE focused exam: Vasc: DP/PT pulses faintly palpable 1/4 b/l, CFT < 3 seconds to all digits, skin temperature warm to warm from proximal to distal WNL, no erythema present. Diffuse 1+ pitting edema noted to b/l LE Neuro: Epicritic and protective sensation grossly intact b/l Derm: Three healing, lysed bullae noted to lateral aspect of leg and one healing, lysed bullae noted to medial aspect of leg. Wound bases are all granular in nature. No erythema noted at this time. No clinical signs of infection. No new bullae noted today. Wounds continue to show signs of improvement MSK: No gross deformities noted. Unable to assess ROM or MMT at this time - Neurological Exam Neurological Exam: Alert, Awake, Oriented x3 - Psychiatric Exam Psychiatric exam: Normal Affect, Normal Mood Assessment and Plan - Assessment and Plan (Free Text) Assessment: 72F seen and evaluated at bedside for b/l leg swelling with drained serous liquid filled bullae of left leg Plan: Patient seen and evaluated Plan discussed with Dr. Zhu WBC 10.5 Continue abx per ID Wound culture from bullae: No growth after 24 hours Blood cx: Group C Strep Urine cx: E. coli Foot, ankle and tib/fib xrays show no evidence of soft tissue emphysema. Evidence of subcutaneous edema and cellulitis appreciated Bullae sites dressed with DSD, ABD No plan for surgical intervention at this time Please apply multipodus boots at all times while in bed Podiatry will continue to follow while patient in house
--- NOTE | 2018-05-28 14:30 | PCM.SURG1 ---
Surgeon's Initial Post Op Note - Surgeon's Notes Surgeon: Dr. Luna Product Representative: Danni PGY2 Type of Anesthesia: IV Sedation, Local Anesthesia Administered By: Bernadette ROSS Pre-Operative Diagnosis: ESRD on HD Operative Findings: RIJ permacath with appropriate positioning Post-Operative Diagnosis: ESRD on HD Operation Performed: Right IJ permacath insertion Specimen/Specimens Removed: None Estimated Blood Loss: EBL {In ML}: 10 Blood Products Given: N/A Drains Used: No Drains Post-Op Condition: Good Date of Surgery/Procedure: 05/28/18 Time of Surgery/Procedure: 14:30
[2018-05-28] MEDS ORDERED: HYDROmorphone 0.5 mg/0.5 ml ISec IVP PRN (14:45)
[2018-05-28] MEDS ORDERED: Sodium Chloride 0.9% 1,000 ML IV SCH (14:45)
--- NOTE | 2018-05-28 15:36 | RAD ---
Date of service: 05/28/2018 HISTORY: s/p permacath COMPARISON: 05/27/2018. FINDINGS: Right-sided PermCath terminates in the right atrium. LUNGS: The lungs are well inflated. There is mild pulmonary venous congestion. PLEURA: No pleural effusions or pneumothorax. CARDIOVASCULAR: Persistent severe cardiomegaly. Status post CABG. There are aortic atherosclerotic calcifications present. OSSEOUS STRUCTURES: Within normal limits for the patient's age. VISUALIZED UPPER ABDOMEN: Normal. OTHER FINDINGS: None. IMPRESSION: Right-sided PermCath terminates in the right atrium. Severe cardiomegaly and mild pulmonary venous congestion. No acute findings.
--- NOTE | 2018-05-28 16:01 | RAD ---
PROCEDURE: HISTORY: As above COMPARISON: None TECHNIQUE: Total fluoroscopic time utilized during the procedure: 9.2 seconds ; 0.97 mGy FINDINGS: Submitted images from the current procedure: 3 Please refer to the physician's notes performing the procedure. IMPRESSION: Less than 1 hour fluoroscopic time utilized during performance of the procedure
[2018-05-28] MEDS: Acetaminophen 650mg/20.3ml solution UD PO PRN (16:44)
--- NOTE | 2018-05-28 19:58 | CP.PCM.PN ---
Subjective - Date & Time of Evaluation Date of Evaluation: 05/28/18 Time of Evaluation: 08:00 - Subjective Subjective: IV RX IN PROGRESS no new compllaints weak and bedridden Objective - Vital Signs/Intake and Output Vital Signs (last 24 hours): Temp Pulse Resp BP Pulse Ox 97.7 F 88 20 110/58 L 100 05/28/18 16:00 05/28/18 16:00 05/28/18 16:00 05/28/18 16:00 05/28/18 16:00 Intake and Output: 05/28/18 05/29/18 18:59 06:59 Intake Total 600 Balance 600 - Medications Medications: Current Medications Acetaminophen (Tylenol 650mg/20.3ml Solution Ud) 650 mg PO Q6 PRN PRN Reason: Fever >100.4 F or Pain Last Admin: 05/28/18 16:44 Dose: 650 mg Albuterol/Ipratropium (Duoneb 3 Mg/0.5 Mg (3 Ml) Ud) 3 ml INH RQ6 [facility] Last Admin: 05/25/18 14:12 Dose: Not Given Dextrose (Dextrose 50% Inj) 0 ml IV STAT PRN; Protocol PRN Reason: Hypoglycemia Protocol Last Admin: 05/18/18 18:17 Dose: 50 ml Dextrose (Glutose 15) 0 gm PO ONCE PRN; Protocol PRN Reason: Hypoglycemia Protocol Epoetin Anthony (Procrit) 10,000 unit IV MWF [facility] Last Admin: 05/27/18 10:18 Dose: 10,000 unit Ergocalciferol (Drisdol 50,000 Intl Units Cap) 1 cap PO Q7D [facility] Last Admin: 05/25/18 10:05 Dose: 1 cap Ferrous Gluconate (Fergon) 324 mg PO TID [facility] Last Admin: 05/28/18 18:23 Dose: 324 mg Glucagon (Glucagen Diagnostic Kit) 0 mg IM STAT PRN; Protocol PRN Reason: Hypoglycemia Protocol Heparin Sodium (Porcine) (Heparin) 5,000 units SC Q8 [facility] Last Admin: 05/27/18 22:00 Dose: 5,000 units Aztreonam 1 gm/ Sodium (Chloride) 100 mls @ 100 mls/hr IVPB Q12H [facility]; Protocol Last Admin: 05/28/18 08:00 Dose: 100 mls/hr Clindamycin Phosphate 600 mg/ (Sodium Chloride) 54 mls @ 100 mls/hr IVPB Q8H [facility]; Protocol Last Admin: 05/28/18 06:08 Dose: 100 mls/hr Sodium Chloride (Sodium Chloride 0.9%) 1,000 mls @ 50 mls/hr IV .Q20H [facility] Last Admin: 05/28/18 00:10 Dose: 50 mls/hr Insulin Aspart (Novolog) 0 unit SC ACHS [facility]; Protocol Last Admin: 05/28/18 16:43 Dose: Not Given Lidocaine (Lidoderm) 1 ea TD Q24H [facility] Last Admin: 05/27/18 21:58 Dose: 1 ea Montelukast Sodium (Singulair) 10 mg PO HS [facility] Last Admin: 05/27/18 22:06 Dose: 10 mg Pantoprazole Sodium (Protonix Inj) 40 mg IVP DAILY [facility] Last Admin: 05/27/18 09:35 Dose: 40 mg Vitamin B Complex/Vit C/Folic Acid (Nephro-Pancho) 1 tab PO 0800 [facility] Last Admin: 05/28/18 08:50 Dose: 1 tab - Labs Labs: 05/28/18 06:02 05/28/18 06:02 PT 13.1 SECONDS (9.7-12.2) H 05/28/18 06:02 INR 1.2 05/28/18 06:02 APTT 29 SECONDS (21-34) 05/28/18 06:02 - Constitutional Appears: No Acute Distress, Cachectic, Chronically Ill - Head Exam Head Exam: NORMOCEPHALIC - Eye Exam Eye Exam: absent: Scleral icterus - ENT Exam ENT Exam: Mucous Membranes Dry - Neck Exam Neck Exam: absent: Thyromegaly - Respiratory Exam Respiratory Exam: Decreased Breath Sounds - Cardiovascular Exam Cardiovascular Exam: REGULAR RHYTHM - GI/Abdominal Exam GI & Abdominal Exam: Distended - Rectal Exam Rectal Exam: Deferred - Exam Exam: NORMAL INSPECTION - Extremities Exam Extremities Exam: Pedal Edema, Tenderness. absent: Calf Tenderness, Normal Capillary Refill, Normal Inspection - Back Exam Back Exam: absent: CVA tenderness (L), CVA tenderness (R) - Neurological Exam Neurological Exam: Alert, Awake, CN II-XII Intact, Oriented x3 - Psychiatric Exam Psychiatric exam: Depressed - Skin Skin Exam: Dry Assessment and Plan (1) Multi-organ system dysfunction Status: Acute (2) Septic shock Status: Acute (3) Cellulitis of left lower extremity Status: Acute (4) Coagulopathy Status: Acute (5) Pancytopenia Status: Acute (6) Sepsis Status: Acute (7) Respiratory failure requiring intubation Status: Acute (8) Respiratory failure with hypoxia and hypercapnia Status: Acute (9) ARRON (acute kidney injury) Status: Acute - Assessment and Plan (Free Text) Assessment: cont IV antibiotics and wound care foor left leg wound/ sepsis
--- NOTE | 2018-05-28 20:01 | CP.PCM.PN ---
Subjective - Date & Time of Evaluation Date of Evaluation: 05/27/18 Time of Evaluation: 12:00 - Subjective Subjective: Appears comfortable Objective - Vital Signs/Intake and Output Vital Signs (last 24 hours): Temp Pulse Resp BP Pulse Ox 97.7 F 88 20 110/58 L 100 05/28/18 16:00 05/28/18 16:00 05/28/18 16:00 05/28/18 16:00 05/28/18 16:00 Intake and Output: 05/28/18 05/29/18 18:59 06:59 Intake Total 600 Balance 600 - Medications Medications: Current Medications Acetaminophen (Tylenol 650mg/20.3ml Solution Ud) 650 mg PO Q6 PRN PRN Reason: Fever >100.4 F or Pain Last Admin: 05/28/18 16:44 Dose: 650 mg Albuterol/Ipratropium (Duoneb 3 Mg/0.5 Mg (3 Ml) Ud) 3 ml INH RQ6 [facility] Last Admin: 05/25/18 14:12 Dose: Not Given Dextrose (Dextrose 50% Inj) 0 ml IV STAT PRN; Protocol PRN Reason: Hypoglycemia Protocol Last Admin: 05/18/18 18:17 Dose: 50 ml Dextrose (Glutose 15) 0 gm PO ONCE PRN; Protocol PRN Reason: Hypoglycemia Protocol Epoetin Anthony (Procrit) 10,000 unit IV MWF [facility] Last Admin: 05/27/18 10:18 Dose: 10,000 unit Ergocalciferol (Drisdol 50,000 Intl Units Cap) 1 cap PO Q7D [facility] Last Admin: 05/25/18 10:05 Dose: 1 cap Ferrous Gluconate (Fergon) 324 mg PO TID [facility] Last Admin: 05/28/18 18:23 Dose: 324 mg Glucagon (Glucagen Diagnostic Kit) 0 mg IM STAT PRN; Protocol PRN Reason: Hypoglycemia Protocol Heparin Sodium (Porcine) (Heparin) 5,000 units SC Q8 [facility] Last Admin: 05/27/18 22:00 Dose: 5,000 units Aztreonam 1 gm/ Sodium (Chloride) 100 mls @ 100 mls/hr IVPB Q12H [facility]; Protocol Last Admin: 05/28/18 08:00 Dose: 100 mls/hr Clindamycin Phosphate 600 mg/ (Sodium Chloride) 54 mls @ 100 mls/hr IVPB Q8H [facility]; Protocol Last Admin: 05/28/18 06:08 Dose: 100 mls/hr Sodium Chloride (Sodium Chloride 0.9%) 1,000 mls @ 50 mls/hr IV .Q20H [facility] Last Admin: 05/28/18 00:10 Dose: 50 mls/hr Insulin Aspart (Novolog) 0 unit SC ACHS [facility]; Protocol Last Admin: 05/28/18 16:43 Dose: Not Given Lidocaine (Lidoderm) 1 ea TD Q24H [facility] Last Admin: 05/27/18 21:58 Dose: 1 ea Montelukast Sodium (Singulair) 10 mg PO HS [facility] Last Admin: 05/27/18 22:06 Dose: 10 mg Pantoprazole Sodium (Protonix Inj) 40 mg IVP DAILY [facility] Last Admin: 05/27/18 09:35 Dose: 40 mg Vitamin B Complex/Vit C/Folic Acid (Nephro-Pancho) 1 tab PO 0800 [facility] Last Admin: 05/28/18 08:50 Dose: 1 tab - Labs Labs: 05/28/18 06:02 05/28/18 06:02 PT 13.1 SECONDS (9.7-12.2) H 05/28/18 06:02 INR 1.2 05/28/18 06:02 APTT 29 SECONDS (21-34) 05/28/18 06:02 - Head Exam Head Exam: ATRAUMATIC - Eye Exam Eye Exam: Normal appearance - ENT Exam ENT Exam: Mucous Membranes Dry - Respiratory Exam Respiratory Exam: Decreased Breath Sounds - Cardiovascular Exam Cardiovascular Exam: +S1, +S2 - GI/Abdominal Exam GI & Abdominal Exam: Normal Bowel Sounds Assessment and Plan (1) Anemia Assessment & Plan: anemia of chronic disease from infection transfusion support PRN Status: Acute
--- NOTE | 2018-05-28 20:02 | CP.PCM.PN ---
Subjective - Date & Time of Evaluation Date of Evaluation: 05/28/18 Time of Evaluation: 19:00 - Subjective Subjective: Appears comfortable Objective - Vital Signs/Intake and Output Vital Signs (last 24 hours): Temp Pulse Resp BP Pulse Ox 97.7 F 88 20 110/58 L 100 05/28/18 16:00 05/28/18 16:00 05/28/18 16:00 05/28/18 16:00 05/28/18 16:00 Intake and Output: 05/28/18 05/29/18 18:59 06:59 Intake Total 600 Balance 600 - Medications Medications: Current Medications Acetaminophen (Tylenol 650mg/20.3ml Solution Ud) 650 mg PO Q6 PRN PRN Reason: Fever >100.4 F or Pain Last Admin: 05/28/18 16:44 Dose: 650 mg Albuterol/Ipratropium (Duoneb 3 Mg/0.5 Mg (3 Ml) Ud) 3 ml INH RQ6 [facility] Last Admin: 05/25/18 14:12 Dose: Not Given Dextrose (Dextrose 50% Inj) 0 ml IV STAT PRN; Protocol PRN Reason: Hypoglycemia Protocol Last Admin: 05/18/18 18:17 Dose: 50 ml Dextrose (Glutose 15) 0 gm PO ONCE PRN; Protocol PRN Reason: Hypoglycemia Protocol Epoetin Anthony (Procrit) 10,000 unit IV MWF [facility] Last Admin: 05/27/18 10:18 Dose: 10,000 unit Ergocalciferol (Drisdol 50,000 Intl Units Cap) 1 cap PO Q7D [facility] Last Admin: 05/25/18 10:05 Dose: 1 cap Ferrous Gluconate (Fergon) 324 mg PO TID [facility] Last Admin: 05/28/18 18:23 Dose: 324 mg Glucagon (Glucagen Diagnostic Kit) 0 mg IM STAT PRN; Protocol PRN Reason: Hypoglycemia Protocol Heparin Sodium (Porcine) (Heparin) 5,000 units SC Q8 [facility] Last Admin: 05/27/18 22:00 Dose: 5,000 units Aztreonam 1 gm/ Sodium (Chloride) 100 mls @ 100 mls/hr IVPB Q12H [facility]; Protocol Last Admin: 05/28/18 08:00 Dose: 100 mls/hr Clindamycin Phosphate 600 mg/ (Sodium Chloride) 54 mls @ 100 mls/hr IVPB Q8H [facility]; Protocol Last Admin: 05/28/18 06:08 Dose: 100 mls/hr Sodium Chloride (Sodium Chloride 0.9%) 1,000 mls @ 50 mls/hr IV .Q20H [facility] Last Admin: 05/28/18 00:10 Dose: 50 mls/hr Insulin Aspart (Novolog) 0 unit SC ACHS [facility]; Protocol Last Admin: 05/28/18 16:43 Dose: Not Given Lidocaine (Lidoderm) 1 ea TD Q24H [facility] Last Admin: 05/27/18 21:58 Dose: 1 ea Montelukast Sodium (Singulair) 10 mg PO HS [facility] Last Admin: 05/27/18 22:06 Dose: 10 mg Pantoprazole Sodium (Protonix Inj) 40 mg IVP DAILY [facility] Last Admin: 05/27/18 09:35 Dose: 40 mg Vitamin B Complex/Vit C/Folic Acid (Nephro-Pancho) 1 tab PO 0800 [facility] Last Admin: 05/28/18 08:50 Dose: 1 tab - Labs Labs: 05/28/18 06:02 05/28/18 06:02 PT 13.1 SECONDS (9.7-12.2) H 05/28/18 06:02 INR 1.2 05/28/18 06:02 APTT 29 SECONDS (21-34) 05/28/18 06:02 - Head Exam Head Exam: ATRAUMATIC - Eye Exam Eye Exam: Normal appearance - ENT Exam ENT Exam: Mucous Membranes Dry - Respiratory Exam Respiratory Exam: Decreased Breath Sounds - Cardiovascular Exam Cardiovascular Exam: +S1, +S2 - GI/Abdominal Exam GI & Abdominal Exam: Normal Bowel Sounds Assessment and Plan (1) Anemia Assessment & Plan: anemia of chronic disease from sepsis transfusion support PRN Status: Acute
[2018-05-28] MEDS: Lidocaine 5% Patch TD SCH (20:14)
--- NOTE | 2018-05-29 01:05 | OP ---
PROCEDURE DATE: 05/28/2018 PREOPERATIVE DIAGNOSIS: Renal failure. POSTOPERATIVE DIAGNOSIS: Renal failure. PROCEDURE CARRIED OUT: Placement of Perma-Cath in right jugular vein with C-arm fluoroscopy, ultrasound-guided puncture, and micropuncture technique. SURGEON: Jakob Luna Jr., MD STERILE PROC TECH: Mychal Razo DO ANESTHESIOLOGIST: Carisa Prasad MD INDICATION: The patient is an elderly woman in ICU, recently extubated and has an indwelling triple lumen dialysis catheter. OPERATIVE FINDINGS: We did not cannibalize the existing catheter. We made a separate puncture low down in the neck under ultrasound guidance and micropuncture technique. We then advanced the guidewire centrally, exchanged the wire for a sheath dilator and then placed and delivered the catheter at the appropriate location with excellent return. We then removed the older preexisting catheter through its own incision. Pressure was applied to the site. Dressing applied and the procedure was terminated. Blood loss of the procedure was 25 mL. Operation carried out, placement of Perma-Cath in right jugular vein. Ultrasound images of the neck showed the vein was approximately 13 mm in diameter with normal compressibility and was consistent with the existing catheter in place. Jakob Luna Jr., MD
[2018-05-29 03:43] LABS: BASO # 0.1 K/uL (0.0-0.2); BASO % 0.7 % (0.0-2.0); HEMOGLOBIN 8.9 g/dL (11.0-16.0); LYMPH # 0.3 K/uL (1.0-4.3); LYMPH % 2.7 % (20.0-40.0); MEAN CORPUSCULAR HEMOGLOBIN 33.3 pg (27.0-31.0); MEAN PLATELET VOLUME 9.8 fL (7.2-11.7); MONO # 0.5 K/uL (0.0-0.8); MONO % 3.7 % (0.0-10.0); NEUT # 11.8 K/uL (1.8-7.0); NEUT % 92.9 % (50.0-75.0); NRBC % 0.2 % (0.0-2.0); PLATELET COUNT 158 K/uL (130-400); RBC 2.66 Mil/uL (3.80-5.20); RED CELL DISTRIBUTION WIDTH 16.1 % (11.5-14.5); WHITE BLOOD COUNT 12.7 K/uL (4.8-10.8)
[2018-05-29 04:02] LABS: ALBUMIN 2.7 g/dL (3.5-5.0)
[2018-05-29 04:54] LABS: BANDS 1 % (0-2); LYMPHOCYTE 2 % (20-40); MONOCYTE 4 % (0-10); NEUTROPHIL 93 % (50-75); PLATELET ESTIMATE NORMAL (NORMAL); TOTAL CELLS COUNTED 100
[2018-05-29] MEDS: (Novolog) Insulin Aspart, Recombinant 100 u/ml 10 ml vial SC SCH ×3 (07:49→22:00)
[2018-05-29] MEDS: Multivitamin Vitamin B Complex (Nephro-Vite) Tab PO SCH (08:00)
[2018-05-29] MEDS: Albuterol-Ipratrop 3 mg / 0.5 (3 ml) UD INH SCH ×4 (08:13→19:21)
[2018-05-29] MEDS: Aztreonam 1 GM in Sodium Chloride 0.9% 100 ML IVPB SCH ×2 (08:24→19:58)
--- NOTE | 2018-05-29 10:25 | CP.PCM.PN ---
Subjective - Date & Time of Evaluation Date of Evaluation: 05/29/18 Time of Evaluation: 10:20 - Subjective Subjective: Medicine note ( Dr. Harp's service) Patient was seen and examined while having dialysis. Patient was resting comfortably but admits to epigastric discomfort with symptoms of nausea/vomiting. Patient denies any symptoms of chest pain, palpitations, shortness of breath, dizziness. Patient admits to having normal bowel movement this morning. Objective - Vital Signs/Intake and Output Vital Signs (last 24 hours): Temp Pulse Resp BP Pulse Ox 97.8 F 99 H 16 133/28 L 100 05/29/18 09:30 05/29/18 09:30 05/29/18 09:30 05/29/18 10:00 05/29/18 09:30 - Medications Medications: Current Medications Acetaminophen (Tylenol 650mg/20.3ml Solution Ud) 650 mg PO Q6 PRN PRN Reason: Fever >100.4 F or Pain Last Admin: 05/28/18 16:44 Dose: 650 mg Albuterol/Ipratropium (Duoneb 3 Mg/0.5 Mg (3 Ml) Ud) 3 ml INH RQ6 [facility] Last Admin: 05/25/18 14:12 Dose: Not Given Albuterol/Ipratropium (Duoneb 3 Mg/0.5 Mg (3 Ml) Ud) 3 ml INH RQ4 [facility] Last Admin: 05/29/18 08:13 Dose: 3 ml Carvedilol (Coreg) 3.125 mg PO BID [facility] Dextrose (Dextrose 50% Inj) 0 ml IV STAT PRN; Protocol PRN Reason: Hypoglycemia Protocol Last Admin: 05/18/18 18:17 Dose: 50 ml Dextrose (Glutose 15) 0 gm PO ONCE PRN; Protocol PRN Reason: Hypoglycemia Protocol Epoetin Anthony (Procrit) 14,000 unit IV MWF [facility] Ergocalciferol (Drisdol 50,000 Intl Units Cap) 1 cap PO Q7D [facility] Last Admin: 05/25/18 10:05 Dose: 1 cap Ferrous Gluconate (Fergon) 324 mg PO TID [facility] Last Admin: 05/28/18 18:23 Dose: 324 mg Glucagon (Glucagen Diagnostic Kit) 0 mg IM STAT PRN; Protocol PRN Reason: Hypoglycemia Protocol Heparin Sodium (Porcine) (Heparin) 5,000 units SC Q8 [facility] Last Admin: 05/29/18 06:15 Dose: Not Given Aztreonam 1 gm/ Sodium (Chloride) 100 mls @ 100 mls/hr IVPB Q12H [facility]; Protocol Last Admin: 05/29/18 08:24 Dose: 100 mls/hr Clindamycin Phosphate 600 mg/ (Sodium Chloride) 54 mls @ 100 mls/hr IVPB Q8H [facility]; Protocol Last Admin: 05/29/18 05:45 Dose: 100 mls/hr Insulin Aspart (Novolog) 0 unit SC ACHS [facility]; Protocol Last Admin: 05/29/18 07:49 Dose: Not Given Lidocaine (Lidoderm) 1 ea TD Q24H [facility] Last Admin: 05/28/18 20:14 Dose: 1 ea Losartan Potassium (Cozaar) 25 mg PO TTS [facility] Montelukast Sodium (Singulair) 10 mg PO HS [facility] Last Admin: 05/28/18 21:06 Dose: 10 mg Pantoprazole Sodium (Protonix Inj) 40 mg IVP DAILY [facility] Last Admin: 05/27/18 09:35 Dose: 40 mg Vitamin B Complex/Vit C/Folic Acid (Nephro-Jeovany) 1 tab PO 0800 [facility] Last Admin: 05/28/18 08:50 Dose: 1 tab - Labs Labs: 05/29/18 03:37 05/29/18 03:37 PT 13.1 SECONDS (9.7-12.2) H 05/28/18 06:02 INR 1.2 05/28/18 06:02 APTT 29 SECONDS (21-34) 05/28/18 06:02 - Constitutional Appears: Well, No Acute Distress - Head Exam Head Exam: ATRAUMATIC, NORMAL INSPECTION - Eye Exam Eye Exam: EOMI, Normal appearance - ENT Exam ENT Exam: Mucous Membranes Moist - Neck Exam Additional comments: S/p Right IG permacath in place (05/28/18) - Respiratory Exam Respiratory Exam: Clear to Ausculation Bilateral, NORMAL BREATHING PATTERN. absent: Rhonchi, Wheezes - Cardiovascular Exam Cardiovascular Exam: REGULAR RHYTHM, +S1, +S2 - GI/Abdominal Exam GI & Abdominal Exam: Soft, Tenderness, Normal Bowel Sounds. absent: Distended, Firm, Guarding Additional comments: Mild tenderness at the epigastric - Extremities Exam Extremities Exam: Pedal Edema Additional comments: Right LE edema Left LE cellulitis - Neurological Exam Neurological Exam: Alert, Awake, Oriented x3 - Psychiatric Exam Psychiatric exam: Flat Affect - Skin Skin Exam: Normal Color Assessment and Plan (1) Septic shock Assessment & Plan: Possibly 2/2 bacteremia, cellulitis or UTI Afebrile S/p extubation x2 Consultations: ID, Dr. Guevara---> help appreciated Labs - Downtrending WBC - Elevated Lactate: 5.8-->4.4 - Blood culture (05/15/18): Group C Strep, BC (05/19/18): Negative X 5 days - Urine Culture ( 05/16/18): Negative and (05/19/18): Negative - Gram stain sputum (05/19/18): E.coli and (05/23/18): Normal anai - Wound culture (05/20/18): Negative Medications: * Aztreonam 1gm IV daily ( started 05/17/18) * Clindamycin 600mg IV Q8H ( Started 05/17/18) * Florastor 250mg PO BID Status: Acute (2) Renal disease Assessment & Plan: Possibly secondary to septic shock Consultation: Nephrology, Dr. Castro---> Help appreciated Vascular surgery, Dr. Luna---> Help appreciated * Right IJ permacath placement 05/28/18 HD- M, W, F Procrit 14,000 units M,W,F Vitamin D, 50,000 units PO Q7D [facility] 1 tab PO daily Status: Acute (3) Anemia secondary to renal failure Assessment & Plan: H/H stable Fergon 324mg PO TID Status: Acute (4) Thrombocytopenia Assessment & Plan: Consultation: Hematology and oncology, Dr. Duggan --> Help appreciated Continue to monitor with labs No acute/ active bleeding Status: Acute (5) Hypertension Assessment & Plan: Stable Cozaar 25mg PO TTS Status: Acute (6) History of CHF (congestive heart failure) Assessment & Plan: Imaging: Echocardiogram (05/15/18): The left ventricular function is severely reduced, with diffuse hyopkinesis. The left ventricular ejection fraction is about 20%. The septum is dyskinetic and demonstrates flattening. elevated RV pressures. Borderline to mild concentric left ventricular hypertrophy. The RV is mildly dilated. The right ventricular systolic function is markedly reduced. The left and right atrium is markedly dilated. Normal Doppler. Repeat ECHO (05/21/18): Improved EF to 30-35%. Please refer to the EMR for official report Medications: * Coreg 3.125mg PO BID * Cozaar 25mg PO TTS Status: Acute (7) History of diabetes mellitus Assessment & Plan: HgbA1C (05/15/18): 6.5% Accuchecks ISS - Low dose Hypoglycemia protocol Status: Acute (8) Cellulitis of left lower extremity Assessment & Plan: Venous doppler (05/15/18): No evidence of deep or superficial vein thrombosis of the left lower extremity with excellent venous floow. Normal valve function noted of the left side. Medications: * Clindamycin 600mg IV Q8H ( Started 05/17/18) Status: Acute (9) Hypothyroid Assessment & Plan: TSH (05/15 & 05/29/18): 14:40 & 15.80, respectively Free T4 (05/15/18): 0.89 Levothyroxine 25mcg PO daily ( 05/30/18) Status: Acute (10) Shortness of breath Assessment & Plan: Albuterol 3ml INH RQ4 Status: Acute (11) Prophylactic measure Assessment & Plan: GI: Protonix 40mg IV daily DVT: Heparin 5,000 units SC Q8H All plans and management discussed with Dr. Harp Status: Acute
[2018-05-29] MEDS: Acetaminophen 650mg/20.3ml solution UD PO PRN ×2 (11:14→17:07)
[2018-05-29] MEDS: EPOETIN ALFA 4,000 UNIT/ML ML Dialysis IV SCH (11:18)
[2018-05-29] MEDS: Epoetin Alfa 10,000 unit/ml Dialysis IV SCH (11:21)
[2018-05-29] MEDS: Saccharomyces Boulardi 250 mg Cap PO SCH ×2 (12:00→20:19)
--- NOTE | 2018-05-29 12:26 | CP.PCM.PN ---
Subjective - Date & Time of Evaluation Date of Evaluation: 05/29/18 Time of Evaluation: 12:24 - Subjective Subjective: Nephrology Follow up Note HPI: 72-year-old female with a history of CHF, CAD, hypertension, hyperlipidemia, history of thyroid disease and renal disease, patient admitted to the hospital with a complaining of left lower extremity pain swelling of one day duration along with fever, followed by code sepsis, hypotension leading to resp distress and current intubation. Hx is obtained from charts. currrently intubated on pressors unknown baseline kidney disease, cr is now 3.1 UOP 10-15 cc per hour. on iv fluids and pressors Past medical history: Had a history of congestive heart failure, coronary artery disease, diabetes, hypertension, hypothyroidism, renal insufficiency. Patient has allergic to penicillin Surgical history include coronary artery bypass grafting x2 Social history: No smoking or drinking history noted Family history significant for diabetes and heart disease Medications at this time not available. 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 extubated 05/25/18 she feels better. denies SOB c/o nasue and upper abdomen pain On examination:seen during HD Patient is currently not in distress. comfortable Chest Rt air entry improved but diminished on left side Heart sounds are regular s1s2 normal Abdomen soft non tender. edema ++ feets better in terms of edema. b/l legs dressed awake calm access: pc Assesment: stable oligoanuric ARRON likely ATN/septic shock with cellulitis and ? 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 had permacath placed by vascular surgery 05/28/18. SW consult for outpt HD placement. maintain hemodynamics stable. Avoid hypotension. Patient not on ACEI/ARB due to recent ARRON Monitor Input/Output, daily weights and renal function with basic metabolic panel c/w Iron, MVI. PRBC as needed. epogen ordered supplement Vit D supplement lytes as needed. will add coreg and low dose losartan Dose meds/antibiotics for reduced GFR. Avoid fleets enema/magnesium based laxatives. Avoid nephrotoxins/NSAIDs/ iodinated contrast (unless needed emergently) Glycemic control Further work up/management as per primary team Thanks for allowing me to participate in care of your patient. Will follow patient with you. Please call if any Qs. had d/w team and family Dr Edin Castro Office: [phone] Objective - Vital Signs/Intake and Output Vital Signs (last 24 hours): Temp Pulse Resp BP Pulse Ox 97.8 F 99 H 16 95/47 L 100 05/29/18 09:30 05/29/18 09:30 05/29/18 09:30 05/29/18 12:00 05/29/18 09:30 - Medications Medications: Current Medications Acetaminophen (Tylenol 650mg/20.3ml Solution Ud) 650 mg PO Q6 PRN PRN Reason: Fever >100.4 F or Pain Last Admin: 05/29/18 11:14 Dose: 650 mg Albuterol/Ipratropium (Duoneb 3 Mg/0.5 Mg (3 Ml) Ud) 3 ml INH RQ6 [facility] Last Admin: 05/25/18 14:12 Dose: Not Given Albuterol/Ipratropium (Duoneb 3 Mg/0.5 Mg (3 Ml) Ud) 3 ml INH RQ4 [facility] Last Admin: 05/29/18 08:13 Dose: 3 ml Carvedilol (Coreg) 3.125 mg PO BID [facility] Dextrose (Dextrose 50% Inj) 0 ml IV STAT PRN; Protocol PRN Reason: Hypoglycemia Protocol Last Admin: 05/18/18 18:17 Dose: 50 ml Dextrose (Glutose 15) 0 gm PO ONCE PRN; Protocol PRN Reason: Hypoglycemia Protocol Epoetin Anthony (Procrit) 10,000 unit IV MWF [facility] Last Admin: 05/29/18 11:21 Dose: 10,000 unit Epoetin Anthony (Procrit) 4,000 unit IV MWF [facility] Last Admin: 05/29/18 11:18 Dose: 4,000 unit Ergocalciferol (Drisdol 50,000 Intl Units Cap) 1 cap PO Q7D [facility] Last Admin: 05/25/18 10:05 Dose: 1 cap Ferrous Gluconate (Fergon) 324 mg PO TID [facility] Last Admin: 05/28/18 18:23 Dose: 324 mg Glucagon (Glucagen Diagnostic Kit) 0 mg IM STAT PRN; Protocol PRN Reason: Hypoglycemia Protocol Heparin Sodium (Porcine) (Heparin) 5,000 units SC Q8 [facility] Last Admin: 05/29/18 06:15 Dose: Not Given Aztreonam 1 gm/ Sodium (Chloride) 100 mls @ 100 mls/hr IVPB Q12H [facility]; Protocol Last Admin: 05/29/18 08:24 Dose: 100 mls/hr Clindamycin Phosphate 600 mg/ (Sodium Chloride) 54 mls @ 100 mls/hr IVPB Q8H [facility]; Protocol Last Admin: 05/29/18 05:45 Dose: 100 mls/hr Insulin Aspart (Novolog) 0 unit SC ACHS [facility]; Protocol Lidocaine (Lidoderm) 1 ea TD Q24H [facility] Last Admin: 05/28/18 20:14 Dose: 1 ea Losartan Potassium (Cozaar) 25 mg PO TTS [facility] Montelukast Sodium (Singulair) 10 mg PO HS [facility] Last Admin: 05/28/18 21:06 Dose: 10 mg Pantoprazole Sodium (Protonix Inj) 40 mg IVP DAILY [facility] Last Admin: 05/27/18 09:35 Dose: 40 mg Saccharomyces Boulardii (Florastor) 250 mg PO BID [facility] Vitamin B Complex/Vit C/Folic Acid (Nephro-Pancho) 1 tab PO 0800 [facility] Last Admin: 05/28/18 08:50 Dose: 1 tab - Labs Labs: 05/29/18 03:37 05/29/18 03:37 PT 13.1 SECONDS (9.7-12.2) H 05/28/18 06:02 INR 1.2 05/28/18 06:02 APTT 29 SECONDS (21-34) 05/28/18 06:02
--- NOTE | 2018-05-29 18:49 | CP.PCM.PN ---
Subjective - Date & Time of Evaluation Date of Evaluation: 05/29/18 Time of Evaluation: 09:00 - Subjective Subjective: IMPROVING NAD Objective - Vital Signs/Intake and Output Vital Signs (last 24 hours): Temp Pulse Resp BP Pulse Ox 97.4 F L 101 H 20 127/60 100 05/29/18 13:41 05/29/18 13:41 05/29/18 13:41 05/29/18 13:41 05/29/18 13:41 - Medications Medications: Current Medications Acetaminophen (Tylenol 650mg/20.3ml Solution Ud) 650 mg PO Q6 PRN PRN Reason: Fever >100.4 F or Pain Last Admin: 05/29/18 17:07 Dose: 650 mg Albuterol/Ipratropium (Duoneb 3 Mg/0.5 Mg (3 Ml) Ud) 3 ml INH RQ6 [facility] Last Admin: 05/25/18 14:12 Dose: Not Given Albuterol/Ipratropium (Duoneb 3 Mg/0.5 Mg (3 Ml) Ud) 3 ml INH RQ4 [facility] Last Admin: 05/29/18 14:38 Dose: 3 ml Carvedilol (Coreg) 3.125 mg PO BID [facility] Last Admin: 05/29/18 10:00 Dose: Not Given Dextrose (Dextrose 50% Inj) 0 ml IV STAT PRN; Protocol PRN Reason: Hypoglycemia Protocol Last Admin: 05/18/18 18:17 Dose: 50 ml Dextrose (Glutose 15) 0 gm PO ONCE PRN; Protocol PRN Reason: Hypoglycemia Protocol Epoetin Anthony (Procrit) 10,000 unit IV MWF [facility] Last Admin: 05/29/18 11:21 Dose: 10,000 unit Epoetin Anthony (Procrit) 4,000 unit IV MWF [facility] Last Admin: 05/29/18 11:18 Dose: 4,000 unit Ergocalciferol (Drisdol 50,000 Intl Units Cap) 1 cap PO Q7D [facility] Last Admin: 05/25/18 10:05 Dose: 1 cap Ferrous Gluconate (Fergon) 324 mg PO TID [facility] Last Admin: 05/29/18 16:40 Dose: 324 mg Glucagon (Glucagen Diagnostic Kit) 0 mg IM STAT PRN; Protocol PRN Reason: Hypoglycemia Protocol Heparin Sodium (Porcine) (Heparin) 5,000 units SC Q8 [facility] Last Admin: 05/29/18 15:00 Dose: 5,000 units Aztreonam 1 gm/ Sodium (Chloride) 100 mls @ 100 mls/hr IVPB Q12H [facility]; Protocol Last Admin: 05/29/18 08:24 Dose: 100 mls/hr Clindamycin Phosphate 600 mg/ (Sodium Chloride) 54 mls @ 100 mls/hr IVPB Q8H [facility]; Protocol Last Admin: 05/29/18 15:00 Dose: 100 mls/hr Insulin Aspart (Novolog) 0 unit SC ACHS [facility]; Protocol Levothyroxine Sodium (Synthroid) 25 mcg PO DAILY@0630 [facility] Lidocaine (Lidoderm) 1 ea TD Q24H [facility] Last Admin: 05/28/18 20:14 Dose: 1 ea Losartan Potassium (Cozaar) 25 mg PO TTS [facility] Montelukast Sodium (Singulair) 10 mg PO HS [facility] Last Admin: 05/28/18 21:06 Dose: 10 mg Pantoprazole Sodium (Protonix Inj) 40 mg IVP DAILY [facility] Last Admin: 05/29/18 17:04 Dose: 40 mg Saccharomyces Boulardii (Florastor) 250 mg PO BID [facility] Last Admin: 05/29/18 12:00 Dose: Not Given Vitamin B Complex/Vit C/Folic Acid (Nephro-Pancho) 1 tab PO 0800 [facility] Last Admin: 05/29/18 08:00 Dose: Not Given - Labs Labs: 05/29/18 03:37 05/29/18 03:37 PT 13.1 SECONDS (9.7-12.2) H 05/28/18 06:02 INR 1.2 05/28/18 06:02 APTT 29 SECONDS (21-34) 05/28/18 06:02 - Constitutional Appears: Well - Head Exam Head Exam: ATRAUMATIC, NORMAL INSPECTION, NORMOCEPHALIC - Eye Exam Eye Exam: EOMI, Normal appearance, PERRL Pupil Exam: NORMAL ACCOMODATION, PERRL - ENT Exam ENT Exam: Mucous Membranes Moist, Normal Exam - Neck Exam Neck Exam: Full ROM, Normal Inspection. absent: Lymphadenopathy - Respiratory Exam Respiratory Exam: Clear to Ausculation Bilateral, NORMAL BREATHING PATTERN - Cardiovascular Exam Cardiovascular Exam: REGULAR RHYTHM, +S1, +S2. absent: Murmur - GI/Abdominal Exam GI & Abdominal Exam: Soft, Normal Bowel Sounds. absent: Tenderness - Rectal Exam Rectal Exam: Deferred - Exam Exam: NORMAL INSPECTION - Extremities Exam Extremities Exam: Full ROM, Normal Capillary Refill, Pedal Edema, Tenderness. absent: Joint Swelling, Normal Inspection - Back Exam Back Exam: NORMAL INSPECTION - Neurological Exam Neurological Exam: Alert, Altered, Awake, CN II-XII Intact. absent: Normal Gait, Oriented x3 - Psychiatric Exam Psychiatric exam: Normal Affect, Normal Mood - Skin Skin Exam: Dry, Intact, Normal Color, Warm Assessment and Plan (1) Multi-organ system dysfunction Status: Acute (2) Septic shock Status: Acute (3) Cellulitis of left lower extremity Status: Acute (4) Coagulopathy Status: Acute (5) Pancytopenia Status: Acute (6) Sepsis Status: Acute (7) Respiratory failure requiring intubation Status: Acute (8) Respiratory failure with hypoxia and hypercapnia Status: Acute (9) ARRON (acute kidney injury) Status: Acute - Assessment and Plan (Free Text) Assessment: CONT IV RX ORDERED
--- NOTE | 2018-05-29 19:40 | CP.PCM.PN ---
Subjective - Date & Time of Evaluation Date of Evaluation: 05/29/18 Time of Evaluation: 13:00 - Subjective Subjective: Appears fatigued. Objective - Vital Signs/Intake and Output Vital Signs (last 24 hours): Temp Pulse Resp BP Pulse Ox 97.4 F L 101 H 20 127/60 100 05/29/18 13:41 05/29/18 13:41 05/29/18 13:41 05/29/18 13:41 05/29/18 13:41 - Medications Medications: Current Medications Acetaminophen (Tylenol 650mg/20.3ml Solution Ud) 650 mg PO Q6 PRN PRN Reason: Fever >100.4 F or Pain Last Admin: 05/29/18 17:07 Dose: 650 mg Albuterol/Ipratropium (Duoneb 3 Mg/0.5 Mg (3 Ml) Ud) 3 ml INH RQ6 [facility] Last Admin: 05/25/18 14:12 Dose: Not Given Albuterol/Ipratropium (Duoneb 3 Mg/0.5 Mg (3 Ml) Ud) 3 ml INH RQ4 [facility] Last Admin: 05/29/18 19:21 Dose: 3 ml Carvedilol (Coreg) 3.125 mg PO BID [facility] Last Admin: 05/29/18 10:00 Dose: Not Given Dextrose (Dextrose 50% Inj) 0 ml IV STAT PRN; Protocol PRN Reason: Hypoglycemia Protocol Last Admin: 05/18/18 18:17 Dose: 50 ml Dextrose (Glutose 15) 0 gm PO ONCE PRN; Protocol PRN Reason: Hypoglycemia Protocol Epoetin Anthony (Procrit) 10,000 unit IV MWF [facility] Last Admin: 05/29/18 11:21 Dose: 10,000 unit Epoetin Anthony (Procrit) 4,000 unit IV MWF [facility] Last Admin: 05/29/18 11:18 Dose: 4,000 unit Ergocalciferol (Drisdol 50,000 Intl Units Cap) 1 cap PO Q7D [facility] Last Admin: 05/25/18 10:05 Dose: 1 cap Ferrous Gluconate (Fergon) 324 mg PO TID [facility] Last Admin: 05/29/18 16:40 Dose: 324 mg Glucagon (Glucagen Diagnostic Kit) 0 mg IM STAT PRN; Protocol PRN Reason: Hypoglycemia Protocol Heparin Sodium (Porcine) (Heparin) 5,000 units SC Q8 [facility] Last Admin: 05/29/18 15:00 Dose: 5,000 units Aztreonam 1 gm/ Sodium (Chloride) 100 mls @ 100 mls/hr IVPB Q12H [facility]; Protocol Last Admin: 05/29/18 08:24 Dose: 100 mls/hr Clindamycin Phosphate 600 mg/ (Sodium Chloride) 54 mls @ 100 mls/hr IVPB Q8H [facility]; Protocol Last Admin: 05/29/18 15:00 Dose: 100 mls/hr Insulin Aspart (Novolog) 0 unit SC ACHS [facility]; Protocol Levothyroxine Sodium (Synthroid) 25 mcg PO DAILY@0630 [facility] Lidocaine (Lidoderm) 1 ea TD Q24H [facility] Last Admin: 05/28/18 20:14 Dose: 1 ea Losartan Potassium (Cozaar) 25 mg PO TTS [facility] Montelukast Sodium (Singulair) 10 mg PO HS [facility] Last Admin: 05/28/18 21:06 Dose: 10 mg Pantoprazole Sodium (Protonix Inj) 40 mg IVP DAILY [facility] Last Admin: 05/29/18 17:04 Dose: 40 mg Saccharomyces Boulardii (Florastor) 250 mg PO BID [facility] Last Admin: 05/29/18 12:00 Dose: Not Given Vitamin B Complex/Vit C/Folic Acid (Nephro-Pancho) 1 tab PO 0800 [facility] Last Admin: 05/29/18 08:00 Dose: Not Given - Labs Labs: 05/29/18 03:37 05/29/18 03:37 PT 13.1 SECONDS (9.7-12.2) H 05/28/18 06:02 INR 1.2 05/28/18 06:02 APTT 29 SECONDS (21-34) 05/28/18 06:02 - Head Exam Head Exam: ATRAUMATIC - Eye Exam Eye Exam: Normal appearance - ENT Exam ENT Exam: Mucous Membranes Dry - Respiratory Exam Respiratory Exam: Decreased Breath Sounds - Cardiovascular Exam Cardiovascular Exam: +S1, +S2 - GI/Abdominal Exam GI & Abdominal Exam: Normal Bowel Sounds Assessment and Plan (1) Anemia Assessment & Plan: anemia of chronic disease transfusion support PRN will consider Procrit supplementation if H/H declines Status: Acute
[2018-05-29] MEDS: Lidocaine 5% Patch TD SCH (19:54)
[2018-05-30] MEDS: Albuterol-Ipratrop 3 mg / 0.5 (3 ml) UD INH SCH ×6 (01:28→19:30)
[2018-05-30] MEDS: Levothyroxine 25 MCG TAB PO SCH (06:27)
[2018-05-30 07:10] LABS: BASO # 0.1 K/uL (0.0-0.2); BASO % 0.7 % (0.0-2.0); EOS % 0.3 % (0.0-4.0); HEMOGLOBIN 7.4 g/dL (11.0-16.0); LYMPH # 0.5 K/uL (1.0-4.3); LYMPH % 4.4 % (20.0-40.0); MEAN CORPUSCULAR HEMOGLOBIN 34.9 pg (27.0-31.0); MEAN CORPUSCULAR HGB CONC 32.9 g/dL (33.0-37.0); MONO # 0.7 K/uL (0.0-0.8); MONO % 6.3 % (0.0-10.0); NEUT # 9.7 K/uL (1.8-7.0); NEUT % 88.3 % (50.0-75.0); NRBC % 0.1 % (0.0-2.0); PLATELET COUNT 142 K/uL (130-400); RBC 2.11 Mil/uL (3.80-5.20); RED CELL DISTRIBUTION WIDTH 16.9 % (11.5-14.5)
[2018-05-30 07:20] LABS: ALBUMIN 2.6 g/dL (3.5-5.0); CALCIUM 8.1 mg/dl (8.6-10.4)
[2018-05-30 07:27] LABS: MEAN CELL VOLUME 106.1 fL (81.0-99.0)
[2018-05-30] MEDS: Aztreonam 1 GM in Sodium Chloride 0.9% 100 ML IVPB SCH ×2 (07:36→20:56)
[2018-05-30 07:37] LABS: AMYLASE 61 U/L (30-110); LIPASE 166 U/L (23-300)
[2018-05-30] MEDS: (Novolog) Insulin Aspart, Recombinant 100 u/ml 10 ml vial SC SCH ×4 (08:05→23:07)
[2018-05-30] MEDS: Multivitamin Vitamin B Complex (Nephro-Vite) Tab PO SCH (08:35)
[2018-05-30 08:44] LABS: TOTAL CELLS COUNTED 100
[2018-05-30 08:45] LABS: BANDS 1 % (0-2); LYMPHOCYTE 4 % (20-40); MONOCYTE 6 % (0-10); NEUTROPHIL 89 % (50-75)
[2018-05-30 08:46] LABS: PLATELET ESTIMATE NORMAL (NORMAL)
[2018-05-30 08:47] LABS: ANISOCYTOSIS SLIGHT; POIKILOCYTOSIS SLIGHT
[2018-05-30 08:48] LABS: HYPOCHROMIC SLIGHT; POLYCHROMIC SLIGHT
[2018-05-30 08:50] LABS: LARGE PLATELETS PRESENT; OVALOCYTES SLIGHT
[2018-05-30] MEDS: Saccharomyces Boulardi 250 mg Cap PO SCH ×2 (09:55→18:07)
--- NOTE | 2018-05-30 14:02 | CP.PCM.PN ---
Subjective - Date & Time of Evaluation Date of Evaluation: 05/30/18 Time of Evaluation: 14:00 - Subjective Subjective: RENAL: seen and examined denies n/v PE: vs as below gen: nad sclera: anicteric op: clear neck: supple cv: +S1+s2 lungs: reduced b/l bases abd: SOft nt nd no organomegaly ext: 1+ edema b/l neuro: follows commands psych: flat skin scattered eccyhomoses Assesment: stable oligoanuric ARRON likely ATN/septic shock with cellulitis and ? 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 had permacath placed by vascular surgery 05/28/18. f/u sw for chair Monitor Input/Output, daily weights and renal function with basic metabolic panel c/w Iron, MVI. PRBC as needed. on epogen supplement Vit D supplement lytes as needed. Objective - Vital Signs/Intake and Output Vital Signs (last 24 hours): Temp Pulse Resp BP Pulse Ox 98.1 F 99 H 18 98/61 L 100 05/30/18 07:00 05/30/18 08:40 05/30/18 07:00 05/30/18 09:00 05/30/18 07:00 Intake and Output: 05/30/18 05/30/18 06:59 18:59 Intake Total 500 Output Total 3 Balance 497 - Medications Medications: Current Medications Acetaminophen (Tylenol 650mg/20.3ml Solution Ud) 650 mg PO Q6 PRN PRN Reason: Fever >100.4 F or Pain Last Admin: 05/29/18 17:07 Dose: 650 mg Albuterol/Ipratropium (Duoneb 3 Mg/0.5 Mg (3 Ml) Ud) 3 ml INH RQ6 [facility] Last Admin: 05/25/18 14:12 Dose: Not Given Albuterol/Ipratropium (Duoneb 3 Mg/0.5 Mg (3 Ml) Ud) 3 ml INH RQ4 [facility] Last Admin: 05/30/18 13:02 Dose: 3 ml Carvedilol (Coreg) 3.125 mg PO BID [facility] Last Admin: 05/30/18 09:56 Dose: Not Given Dextrose (Dextrose 50% Inj) 0 ml IV STAT PRN; Protocol PRN Reason: Hypoglycemia Protocol Last Admin: 05/18/18 18:17 Dose: 50 ml Dextrose (Glutose 15) 0 gm PO ONCE PRN; Protocol PRN Reason: Hypoglycemia Protocol Epoetin Anthony (Procrit) 10,000 unit IV MWF [facility] Last Admin: 05/29/18 11:21 Dose: 10,000 unit Epoetin Anthony (Procrit) 4,000 unit IV MWF [facility] Last Admin: 05/29/18 11:18 Dose: 4,000 unit Ergocalciferol (Drisdol 50,000 Intl Units Cap) 1 cap PO Q7D [facility] Last Admin: 05/25/18 10:05 Dose: 1 cap Ferrous Gluconate (Fergon) 324 mg PO TID [facility] Last Admin: 05/30/18 13:37 Dose: 324 mg Glucagon (Glucagen Diagnostic Kit) 0 mg IM STAT PRN; Protocol PRN Reason: Hypoglycemia Protocol Heparin Sodium (Porcine) (Heparin) 5,000 units SC Q8 [facility] Last Admin: 05/30/18 13:40 Dose: 5,000 units Aztreonam 1 gm/ Sodium (Chloride) 100 mls @ 100 mls/hr IVPB Q12H [facility]; Protocol Last Admin: 05/30/18 07:36 Dose: 100 mls/hr Clindamycin Phosphate 600 mg/ (Sodium Chloride) 54 mls @ 100 mls/hr IVPB Q8H [facility]; Protocol Last Admin: 05/30/18 13:41 Dose: 100 mls/hr Insulin Aspart (Novolog) 0 unit SC ACHS [facility]; Protocol Last Admin: 05/30/18 11:55 Dose: Not Given Levothyroxine Sodium (Synthroid) 25 mcg PO DAILY@0630 [facility] Last Admin: 05/30/18 06:27 Dose: 25 mcg Lidocaine (Lidoderm) 1 ea TD Q24H [facility] Last Admin: 05/29/18 19:54 Dose: 1 ea Losartan Potassium (Cozaar) 25 mg PO TTS [facility] Last Admin: 05/30/18 09:56 Dose: Not Given Montelukast Sodium (Singulair) 10 mg PO HS [facility] Last Admin: 05/29/18 21:18 Dose: 10 mg Pantoprazole Sodium (Protonix Inj) 40 mg IVP DAILY [facility] Last Admin: 05/30/18 09:55 Dose: 40 mg Saccharomyces Boulardii (Florastor) 250 mg PO BID [facility] Last Admin: 05/30/18 09:55 Dose: 250 mg Vitamin B Complex/Vit C/Folic Acid (Nephro-Pancho) 1 tab PO 0800 [facility] Last Admin: 05/30/18 08:35 Dose: 1 tab - Labs Labs: 05/30/18 06:49 05/30/18 06:49 PT 13.1 SECONDS (9.7-12.2) H 05/28/18 06:02 INR 1.2 05/28/18 06:02 APTT 29 SECONDS (21-34) 05/28/18 06:02
[2018-05-30] MEDS: Lidocaine 5% Patch TD SCH (23:07)
[2018-05-31] MEDS: Albuterol-Ipratrop 3 mg / 0.5 (3 ml) UD INH SCH ×7 (00:19→19:22)
[2018-05-31] MEDS: Acetaminophen 650mg/20.3ml solution UD PO PRN (05:14)
[2018-05-31] MEDS: Levothyroxine 25 MCG TAB PO SCH (05:30)
[2018-05-31] MEDS: Aztreonam 1 GM in Sodium Chloride 0.9% 100 ML IVPB SCH (07:18)
[2018-05-31] MEDS: (Novolog) Insulin Aspart, Recombinant 100 u/ml 10 ml vial SC SCH ×4 (08:05→22:52)
[2018-05-31 08:07] LABS: ALBUMIN 2.5 g/dL (3.5-5.0); CALCIUM 8.1 mg/dl (8.6-10.4)
[2018-05-31] MEDS: Multivitamin Vitamin B Complex (Nephro-Vite) Tab PO SCH (08:20)
[2018-05-31] MEDS: Saccharomyces Boulardi 250 mg Cap PO SCH ×2 (09:10→17:37)
--- NOTE | 2018-05-31 15:24 | CP.PCM.PN ---
Subjective - Date & Time of Evaluation Date of Evaluation: 05/31/18 Time of Evaluation: 15:23 - Subjective Subjective: Podiatry Progress Note for Dr. Zhu 72F seen and evaluated at bedside for b/l leg swelling with drained serous liquid filled bullae of left leg. Patient is accompanied by her sonat this time. Per nursing, no acute overnight events. Patient is awake and alert. Denies any leg pain at this time Objective - Vital Signs/Intake and Output Vital Signs (last 24 hours): Temp Pulse Resp BP Pulse Ox 98.8 F 99 H 20 103/53 L 99 05/31/18 07:00 05/31/18 07:49 05/31/18 07:00 05/31/18 07:00 05/31/18 07:00 - Medications Medications: Current Medications Acetaminophen (Tylenol 650mg/20.3ml Solution Ud) 650 mg PO Q6 PRN PRN Reason: Fever >100.4 F or Pain Last Admin: 05/31/18 05:14 Dose: 650 mg Albuterol/Ipratropium (Duoneb 3 Mg/0.5 Mg (3 Ml) Ud) 3 ml INH RQ6 [facility] Last Admin: 05/25/18 14:12 Dose: Not Given Albuterol/Ipratropium (Duoneb 3 Mg/0.5 Mg (3 Ml) Ud) 3 ml INH RQ4 [facility] Last Admin: 05/31/18 11:38 Dose: 3 ml Carvedilol (Coreg) 3.125 mg PO BID [facility] Last Admin: 05/31/18 09:11 Dose: 3.125 mg Dextrose (Dextrose 50% Inj) 0 ml IV STAT PRN; Protocol PRN Reason: Hypoglycemia Protocol Last Admin: 05/18/18 18:17 Dose: 50 ml Dextrose (Glutose 15) 0 gm PO ONCE PRN; Protocol PRN Reason: Hypoglycemia Protocol Epoetin Anthony (Procrit) 10,000 unit IV MWF [facility] Last Admin: 05/29/18 11:21 Dose: 10,000 unit Epoetin Anthony (Procrit) 4,000 unit IV MWF [facility] Last Admin: 05/29/18 11:18 Dose: 4,000 unit Ergocalciferol (Drisdol 50,000 Intl Units Cap) 1 cap PO Q7D [facility] Last Admin: 05/25/18 10:05 Dose: 1 cap Ferrous Gluconate (Fergon) 324 mg PO TID [facility] Last Admin: 05/31/18 13:56 Dose: 324 mg Glucagon (Glucagen Diagnostic Kit) 0 mg IM STAT PRN; Protocol PRN Reason: Hypoglycemia Protocol Heparin Sodium (Porcine) (Heparin) 5,000 units SC Q8 [facility] Last Admin: 05/31/18 13:56 Dose: 5,000 units Aztreonam 1 gm/ Sodium (Chloride) 100 mls @ 100 mls/hr IVPB Q12H [facility]; Protocol Last Admin: 05/31/18 07:18 Dose: 100 mls/hr Clindamycin Phosphate 600 mg/ (Sodium Chloride) 54 mls @ 100 mls/hr IVPB Q8H [facility]; Protocol Last Admin: 05/31/18 13:57 Dose: 100 mls/hr Insulin Aspart (Novolog) 0 unit SC ACHS [facility]; Protocol Last Admin: 05/31/18 12:00 Dose: Not Given Levothyroxine Sodium (Synthroid) 25 mcg PO DAILY@0630 [facility] Last Admin: 05/31/18 05:30 Dose: 25 mcg Lidocaine (Lidoderm) 1 ea TD Q24H [facility] Last Admin: 05/30/18 23:07 Dose: 1 ea Losartan Potassium (Cozaar) 25 mg PO TTS [facility] Last Admin: 05/30/18 09:56 Dose: Not Given Montelukast Sodium (Singulair) 10 mg PO HS [facility] Last Admin: 05/30/18 22:08 Dose: 10 mg Pantoprazole Sodium (Protonix Inj) 40 mg IVP DAILY [facility] Last Admin: 05/31/18 09:09 Dose: 40 mg Saccharomyces Boulardii (Florastor) 250 mg PO BID [facility] Last Admin: 05/31/18 09:10 Dose: 250 mg Vitamin B Complex/Vit C/Folic Acid (Nephro-Pancho) 1 tab PO 0800 [facility] Last Admin: 05/31/18 08:20 Dose: 1 tab - Labs Labs: 05/30/18 06:49 05/31/18 07:39 PT 13.1 SECONDS (9.7-12.2) H 05/28/18 06:02 INR 1.2 05/28/18 06:02 APTT 29 SECONDS (21-34) 05/28/18 06:02 - Constitutional Appears: Well, Non-toxic - Head Exam Head Exam: ATRAUMATIC - Eye Exam Eye Exam: Normal appearance - Extremities Exam Additional comments: LLE focused exam: Vasc: DP/PT pulses faintly palpable 1/4 b/l, CFT < 3 seconds to all digits, skin temperature warm to warm from proximal to distal WNL, no erythema present. Diffuse 1+ pitting edema noted to b/l LE Neuro: Epicritic and protective sensation grossly intact b/l Derm: Three healing, lysed bullae noted to lateral aspect of leg and one healing, lysed bullae noted to medial aspect of leg. Wound bases are all granular in nature. No erythema noted at this time. No clinical signs of infection. No new bullae noted today. Wounds continue to show signs of impro vement MSK: No gross deformities noted. Unable to assess ROM or MMT at this time Assessment and Plan - Assessment and Plan (Free Text) Assessment: 72F seen and evaluated at bedside for b/l leg swelling with drained serous liquid filled bullae of left leg Plan: Patient seen and evaluated Plan discussed with Dr. Zhu WBC 10.5 Continue abx per ID Wound culture from bullae: No growth Blood cx: Group C Strep Urine cx: E. coli Foot, ankle and tib/fib xrays show no evidence of soft tissue emphysema. Evid ence of subcutaneous edema and cellulitis appreciated Bullae sites dressed with DSD, ABD No plan for surgical intervention at this time Please apply multipodus boots at all times while in bed Podiatry will continue to follow while patient in house
--- NOTE | 2018-05-31 16:02 | CP.PCM.PN ---
Subjective - Date & Time of Evaluation Date of Evaluation: 05/31/18 Time of Evaluation: 08:00 - Subjective Subjective: 72F seen and evaluated at bedside for b/l leg swelling with drained serous liquid filled bullae of left leg. Objective - Vital Signs/Intake and Output Vital Signs (last 24 hours): Temp Pulse Resp BP Pulse Ox 98.1 F 90 20 100/61 100 05/31/18 15:00 05/31/18 15:00 05/31/18 15:00 05/31/18 15:00 05/31/18 15:00 - Medications Medications: Current Medications Acetaminophen (Tylenol 650mg/20.3ml Solution Ud) 650 mg PO Q6 PRN PRN Reason: Fever >100.4 F or Pain Last Admin: 05/31/18 05:14 Dose: 650 mg Albuterol/Ipratropium (Duoneb 3 Mg/0.5 Mg (3 Ml) Ud) 3 ml INH RQ6 [facility] Last Admin: 05/25/18 14:12 Dose: Not Given Albuterol/Ipratropium (Duoneb 3 Mg/0.5 Mg (3 Ml) Ud) 3 ml INH RQ4 [facility] Last Admin: 05/31/18 11:38 Dose: 3 ml Carvedilol (Coreg) 3.125 mg PO BID [facility] Last Admin: 05/31/18 09:11 Dose: 3.125 mg Dextrose (Dextrose 50% Inj) 0 ml IV STAT PRN; Protocol PRN Reason: Hypoglycemia Protocol Last Admin: 05/18/18 18:17 Dose: 50 ml Dextrose (Glutose 15) 0 gm PO ONCE PRN; Protocol PRN Reason: Hypoglycemia Protocol Epoetin [facility] (Procrit) 10,000 unit IV MWF [facility] Last Admin: 05/29/18 11:21 Dose: 10,000 unit Epoetin [facility] (Procrit) 4,000 unit IV MWF [facility] Last Admin: 05/29/18 11:18 Dose: 4,000 unit Ergocalciferol (Drisdol 50,000 Intl Units Cap) 1 cap PO Q7D [facility] Last Admin: 05/25/18 10:05 Dose: 1 cap Ferrous Gluconate (Fergon) 324 mg PO TID [facility] Last Admin: 05/31/18 13:56 Dose: 324 mg Glucagon (Glucagen Diagnostic Kit) 0 mg IM STAT PRN; Protocol PRN Reason: Hypoglycemia Protocol Heparin Sodium (Porcine) (Heparin) 5,000 units SC Q8 [facility] Last Admin: 05/31/18 13:56 Dose: 5,000 units Aztreonam 1 gm/ Sodium (Chloride) 100 mls @ 100 mls/hr IVPB Q12H [facility]; Protocol Last Admin: 05/31/18 07:18 Dose: 100 mls/hr Clindamycin Phosphate 600 mg/ (Sodium Chloride) 54 mls @ 100 mls/hr IVPB Q8H [facility]; Protocol Last Admin: 05/31/18 13:57 Dose: 100 mls/hr Insulin Aspart (Novolog) 0 unit SC ACHS [facility]; Protocol Last Admin: 05/31/18 12:00 Dose: Not Given Levothyroxine Sodium (Synthroid) 25 mcg PO DAILY@0630 [facility] Last Admin: 05/31/18 05:30 Dose: 25 mcg Lidocaine (Lidoderm) 1 ea TD Q24H [facility] Last Admin: 05/30/18 23:07 Dose: 1 ea Losartan Potassium (Cozaar) 25 mg PO TTS [facility] Last Admin: 05/30/18 09:56 Dose: Not Given Montelukast Sodium (Singulair) 10 mg PO HS [facility] Last Admin: 05/30/18 22:08 Dose: 10 mg Pantoprazole Sodium (Protonix Inj) 40 mg IVP DAILY [facility] Last Admin: 05/31/18 09:09 Dose: 40 mg Saccharomyces Boulardii (Florastor) 250 mg PO BID [facility] Last Admin: 05/31/18 09:10 Dose: 250 mg Vitamin B Complex/Vit C/Folic Acid (Nephro-Pancho) 1 tab PO 0800 [facility] Last Admin: 05/31/18 08:20 Dose: 1 tab - Labs Labs: 05/30/18 06:49 05/31/18 07:39 PT 13.1 SECONDS (9.7-12.2) H 05/28/18 06:02 INR 1.2 05/28/18 06:02 APTT 29 SECONDS (21-34) 05/28/18 06:02 - Constitutional Appears: Non-toxic, Cachectic, Chronically Ill - Head Exam Head Exam: NORMOCEPHALIC - Eye Exam Eye Exam: absent: Scleral icterus - ENT Exam ENT Exam: Mucous Membranes Dry - Neck Exam Neck Exam: absent: Lymphadenopathy - Respiratory Exam Respiratory Exam: Decreased Breath Sounds - Cardiovascular Exam Cardiovascular Exam: REGULAR RHYTHM - GI/Abdominal Exam GI & Abdominal Exam: Distended - Rectal Exam Rectal Exam: Deferred - Exam Exam: NORMAL INSPECTION - Extremities Exam Extremities Exam: absent: Pedal Edema - Back Exam Back Exam: absent: CVA tenderness (L), CVA tenderness (R) - Neurological Exam Neurological Exam: Alert, Awake, Oriented x3 - Psychiatric Exam Psychiatric exam: Depressed - Skin Skin Exam: Dry Assessment and Plan (1) Multi-organ system dysfunction Status: Acute (2) Septic shock Status: Acute (3) Cellulitis of left lower extremity Status: Acute (4) Coagulopathy Status: Acute (5) Pancytopenia Status: Acute (6) Sepsis Status: Acute (7) Respiratory failure requiring intubation Status: Acute (8) Respiratory failure with hypoxia and hypercapnia Status: Acute (9) ARRON (acute kidney injury) Status: Acute - Assessment and Plan (Free Text) Assessment: wounds healing remnants of bullae stable small area of discoloration noted at base of 2nd toe right foot noted cont wound care / IV rx
--- NOTE | 2018-05-31 20:15 | CP.PCM.PN ---
Subjective - Date & Time of Evaluation Date of Evaluation: 05/30/18 Time of Evaluation: 16:00 - Subjective Subjective: Appears fatigued. Objective - Vital Signs/Intake and Output Vital Signs (last 24 hours): Temp Pulse Resp BP Pulse Ox 98.1 F 88 20 100/61 100 05/31/18 15:00 05/31/18 15:40 05/31/18 15:00 05/31/18 15:00 05/31/18 15:00 - Medications Medications: Current Medications Acetaminophen (Tylenol 650mg/20.3ml Solution Ud) 650 mg PO Q6 PRN PRN Reason: Fever >100.4 F or Pain Last Admin: 05/31/18 05:14 Dose: 650 mg Albuterol/Ipratropium (Duoneb 3 Mg/0.5 Mg (3 Ml) Ud) 3 ml INH RQ6 [facility] Last Admin: 05/25/18 14:12 Dose: Not Given Albuterol/Ipratropium (Duoneb 3 Mg/0.5 Mg (3 Ml) Ud) 3 ml INH RQ4 [facility] Last Admin: 05/31/18 19:22 Dose: 3 ml Carvedilol (Coreg) 3.125 mg PO BID [facility] Last Admin: 05/31/18 17:36 Dose: 3.125 mg Epoetin Anthony (Procrit) 10,000 unit IV [facility] Last Admin: 05/29/18 11:21 Dose: 10,000 unit Epoetin Anthony (Procrit) 4,000 unit IV F [facility] Last Admin: 05/29/18 11:18 Dose: 4,000 unit Ergocalciferol (Drisdol 50,000 Intl Units Cap) 1 cap PO Q7D [facility] Last Admin: 05/25/18 10:05 Dose: 1 cap Ferrous Gluconate (Fergon) 324 mg PO TID [facility] Last Admin: 05/31/18 17:36 Dose: 324 mg Heparin Sodium (Porcine) (Heparin) 5,000 units SC Q8 [facility] Last Admin: 05/31/18 13:56 Dose: 5,000 units Vancomycin HCl 1 gm/ Sodium (Chloride) 250 mls @ 166.7 mls/hr IVPB [facility]; Protocol Insulin Aspart (Novolog) 0 unit SC ACHS [facility]; Protocol Last Admin: 05/31/18 12:00 Dose: Not Given Levothyroxine Sodium (Synthroid) 25 mcg PO DAILY@0630 [facility] Last Admin: 05/31/18 05:30 Dose: 25 mcg Lidocaine (Lidoderm) 1 ea TD Q24H [facility] Last Admin: 05/30/18 23:07 Dose: 1 ea Losartan Potassium (Cozaar) 25 mg PO TTS [facility] Last Admin: 05/30/18 09:56 Dose: Not Given Montelukast Sodium (Singulair) 10 mg PO HS [facility] Last Admin: 05/30/18 22:08 Dose: 10 mg Pantoprazole Sodium (Protonix Inj) 40 mg IVP DAILY [facility] Last Admin: 05/31/18 09:09 Dose: 40 mg Saccharomyces Boulardii (Florastor) 250 mg PO BID [facility] Last Admin: 05/31/18 17:37 Dose: 250 mg Vitamin B Complex/Vit C/Folic Acid (Nephro-Pancho) 1 tab PO 0800 [facility] Last Admin: 05/31/18 08:20 Dose: 1 tab - Labs Labs: 05/30/18 06:49 05/31/18 07:39 PT 13.1 SECONDS (9.7-12.2) H 05/28/18 06:02 INR 1.2 05/28/18 06:02 APTT 29 SECONDS (21-34) 05/28/18 06:02 - Head Exam Head Exam: ATRAUMATIC - Eye Exam Eye Exam: Normal appearance - ENT Exam ENT Exam: Mucous Membranes Dry - Respiratory Exam Respiratory Exam: Decreased Breath Sounds - Cardiovascular Exam Cardiovascular Exam: +S1, +S2 - GI/Abdominal Exam GI & Abdominal Exam: Normal Bowel Sounds Assessment and Plan (1) Anemia Assessment & Plan: anemia of chronic disease, CKD on Procrit per renal transfusion support PRN Status: Acute
--- NOTE | 2018-05-31 20:16 | CP.PCM.PN ---
Subjective - Date & Time of Evaluation Date of Evaluation: 05/31/18 Time of Evaluation: 18:00 - Subjective Subjective: Appears fatigued. Objective - Vital Signs/Intake and Output Vital Signs (last 24 hours): Temp Pulse Resp BP Pulse Ox 98.1 F 88 20 100/61 100 05/31/18 15:00 05/31/18 15:40 05/31/18 15:00 05/31/18 15:00 05/31/18 15:00 - Medications Medications: Current Medications Acetaminophen (Tylenol 650mg/20.3ml Solution Ud) 650 mg PO Q6 PRN PRN Reason: Fever >100.4 F or Pain Last Admin: 05/31/18 05:14 Dose: 650 mg Albuterol/Ipratropium (Duoneb 3 Mg/0.5 Mg (3 Ml) Ud) 3 ml INH RQ6 [facility] Last Admin: 05/25/18 14:12 Dose: Not Given Albuterol/Ipratropium (Duoneb 3 Mg/0.5 Mg (3 Ml) Ud) 3 ml INH RQ4 [facility] Last Admin: 05/31/18 19:22 Dose: 3 ml Carvedilol (Coreg) 3.125 mg PO BID [facility] Last Admin: 05/31/18 17:36 Dose: 3.125 mg Epoetin Anthony (Procrit) 10,000 unit IV [facility] Last Admin: 05/29/18 11:21 Dose: 10,000 unit Epoetin Anthony (Procrit) 4,000 unit IV F [facility] Last Admin: 05/29/18 11:18 Dose: 4,000 unit Ergocalciferol (Drisdol 50,000 Intl Units Cap) 1 cap PO Q7D [facility] Last Admin: 05/25/18 10:05 Dose: 1 cap Ferrous Gluconate (Fergon) 324 mg PO TID [facility] Last Admin: 05/31/18 17:36 Dose: 324 mg Heparin Sodium (Porcine) (Heparin) 5,000 units SC Q8 [facility] Last Admin: 05/31/18 13:56 Dose: 5,000 units Vancomycin HCl 1 gm/ Sodium (Chloride) 250 mls @ 166.7 mls/hr IVPB [facility]; Protocol Insulin Aspart (Novolog) 0 unit SC ACHS [facility]; Protocol Last Admin: 05/31/18 12:00 Dose: Not Given Levothyroxine Sodium (Synthroid) 25 mcg PO DAILY@0630 [facility] Last Admin: 05/31/18 05:30 Dose: 25 mcg Lidocaine (Lidoderm) 1 ea TD Q24H [facility] Last Admin: 05/30/18 23:07 Dose: 1 ea Losartan Potassium (Cozaar) 25 mg PO TTS [facility] Last Admin: 05/30/18 09:56 Dose: Not Given Montelukast Sodium (Singulair) 10 mg PO HS [facility] Last Admin: 05/30/18 22:08 Dose: 10 mg Pantoprazole Sodium (Protonix Inj) 40 mg IVP DAILY [facility] Last Admin: 05/31/18 09:09 Dose: 40 mg Saccharomyces Boulardii (Florastor) 250 mg PO BID [facility] Last Admin: 05/31/18 17:37 Dose: 250 mg Vitamin B Complex/Vit C/Folic Acid (Nephro-Pancho) 1 tab PO 0800 [facility] Last Admin: 05/31/18 08:20 Dose: 1 tab - Labs Labs: 05/30/18 06:49 05/31/18 07:39 PT 13.1 SECONDS (9.7-12.2) H 05/28/18 06:02 INR 1.2 05/28/18 06:02 APTT 29 SECONDS (21-34) 05/28/18 06:02 - Head Exam Head Exam: ATRAUMATIC - Eye Exam Eye Exam: Normal appearance - ENT Exam ENT Exam: Mucous Membranes Dry - Respiratory Exam Respiratory Exam: Decreased Breath Sounds - Cardiovascular Exam Cardiovascular Exam: +S1, +S2 - GI/Abdominal Exam GI & Abdominal Exam: Normal Bowel Sounds Assessment and Plan (1) Anemia Assessment & Plan: anemia of chronic disease anemia of CKD on Procrit transfusion support PRN Status: Acute
[2018-05-31] MEDS: Lidocaine 5% Patch TD SCH (21:19)
[2018-06-01] MEDS: Albuterol-Ipratrop 3 mg / 0.5 (3 ml) UD INH SCH ×7 (00:33→23:44)
[2018-06-01] MEDS: Acetaminophen 650mg/20.3ml solution UD PO PRN ×2 (01:51→21:32)
[2018-06-01] MEDS: Levothyroxine 25 MCG TAB PO SCH (05:35)
[2018-06-01 07:17] LABS: BASO # 0.1 K/uL (0.0-0.2); BASO % 0.8 % (0.0-2.0); EOS # 0.1 K/uL (0.0-0.7); HEMOGLOBIN 7.7 g/dL (11.0-16.0); LYMPH # 0.5 K/uL (1.0-4.3); LYMPH % 5.3 % (20.0-40.0); MEAN CELL VOLUME 108.6 fL (81.0-99.0); MEAN CORPUSCULAR HEMOGLOBIN 35.9 pg (27.0-31.0); MEAN PLATELET VOLUME 9.4 fL (7.2-11.7); MONO # 0.6 K/uL (0.0-0.8); MONO % 6.2 % (0.0-10.0); NEUT # 7.9 K/uL (1.8-7.0); NEUT % 86.7 % (50.0-75.0); NRBC % 0.2 % (0.0-2.0); PLATELET COUNT 138 K/uL (130-400); RBC 2.15 Mil/uL (3.80-5.20); RED CELL DISTRIBUTION WIDTH 19.2 % (11.5-14.5); WHITE BLOOD COUNT 9.1 K/uL (4.8-10.8)
[2018-06-01] MEDS: (Novolog) Insulin Aspart, Recombinant 100 u/ml 10 ml vial SC SCH ×4 (07:30→21:38)
[2018-06-01 07:51] LABS: ALBUMIN 2.5 g/dL (3.5-5.0)
--- NOTE | 2018-06-01 08:08 | CP.PCM.PN ---
Subjective - Date & Time of Evaluation Date of Evaluation: 06/01/18 Time of Evaluation: 08:07 - Subjective Subjective: PGY3 progress note for Dr. Harp's service Patient was seen and examined at bedside. Nursing reports no acute events overnight. Patient found in dialysis center resting comfortably. Patient denies chest pain, SOB, or abd pain. Patient to be transfused one unit this AM. Objective - Vital Signs/Intake and Output Vital Signs (last 24 hours): Temp Pulse Resp BP Pulse Ox 97.8 F 82 20 112/59 L 99 05/31/18 23:05 06/01/18 04:35 05/31/18 23:05 05/31/18 23:05 05/31/18 23:05 - Medications Medications: Current Medications Acetaminophen (Tylenol 650mg/20.3ml Solution Ud) 650 mg PO Q6 PRN PRN Reason: Fever >100.4 F or Pain Last Admin: 06/01/18 01:51 Dose: 650 mg Albuterol/Ipratropium (Duoneb 3 Mg/0.5 Mg (3 Ml) Ud) 3 ml INH RQ6 [facility] Last Admin: 05/25/18 14:12 Dose: Not Given Albuterol/Ipratropium (Duoneb 3 Mg/0.5 Mg (3 Ml) Ud) 3 ml INH RQ4 [facility] Last Admin: 06/01/18 07:49 Dose: 3 ml Carvedilol (Coreg) 3.125 mg PO BID [facility] Last Admin: 05/31/18 17:36 Dose: 3.125 mg Epoetin Anthony (Procrit) 10,000 unit IV [facility] Last Admin: 05/29/18 11:21 Dose: 10,000 unit Epoetin Anthony (Procrit) 4,000 unit IV [facility] Last Admin: 05/29/18 11:18 Dose: 4,000 unit Ergocalciferol (Drisdol 50,000 Intl Units Cap) 1 cap PO Q7D [facility] Last Admin: 05/25/18 10:05 Dose: 1 cap Ferrous Gluconate (Fergon) 324 mg PO TID [facility] Last Admin: 05/31/18 17:36 Dose: 324 mg Vancomycin HCl 1 gm/ Sodium (Chloride) 250 mls @ 166.7 mls/hr IVPB [facility]; Protocol Insulin Aspart (Novolog) 0 unit SC ACHS [facility]; Protocol Last Admin: 05/31/18 22:52 Dose: Not Given Levothyroxine Sodium (Synthroid) 25 mcg PO DAILY@0630 [facility] Last Admin: 06/01/18 05:35 Dose: 25 mcg Lidocaine (Lidoderm) 1 ea TD Q24H [facility] Last Admin: 05/31/18 21:19 Dose: 1 ea Losartan Potassium (Cozaar) 25 mg PO TTS [facility] Last Admin: 05/30/18 09:56 Dose: Not Given Montelukast Sodium (Singulair) 10 mg PO HS [facility] Last Admin: 05/31/18 21:18 Dose: 10 mg Pantoprazole Sodium (Protonix Inj) 40 mg IVP DAILY [facility] Last Admin: 05/31/18 09:09 Dose: 40 mg Saccharomyces Boulardii (Florastor) 250 mg PO BID [facility] Last Admin: 05/31/18 17:37 Dose: 250 mg Vitamin B Complex/Vit C/Folic Acid (Nephro-Jeovany) 1 tab PO 0800 [facility] Last Admin: 05/31/18 08:20 Dose: 1 tab - Labs Labs: 06/01/18 07:10 06/01/18 07:10 PT 13.1 SECONDS (9.7-12.2) H 05/28/18 06:02 INR 1.2 05/28/18 06:02 APTT 29 SECONDS (21-34) 05/28/18 06:02 - Additional Findings Additional findings: - Constitutional Appears: Well, No Acute Distress - Head Exam Head Exam: ATRAUMATIC, NORMAL INSPECTION - Eye Exam Eye Exam: EOMI, Normal appearance - ENT Exam ENT Exam: Mucous Membranes Moist - Neck Exam Additional comments: S/p Right IG permacath in place (05/28/18) - Respiratory Exam Respiratory Exam: Clear to Ausculation Bilateral, NORMAL BREATHING PATTERN. absent: Rhonchi, Wheezes - Cardiovascular Exam Cardiovascular Exam: REGULAR RHYTHM, +S1, +S2 - GI/Abdominal Exam GI & Abdominal Exam: Soft, Tenderness, Normal Bowel Sounds. absent: Distended, Firm, Guarding Additional comments: Mild tenderness at the epigastric - Extremities Exam Extremities Exam: Pedal Edema Additional comments: Right LE edema Left LE cellulitis (improving) - Neurological Exam Neurological Exam: Alert, Awake, Oriented x3 - Psychiatric Exam Psychiatric exam: Flat Affect - Skin Skin Exam: Normal Color Assessment and Plan - Assessment and Plan (Free Text) Plan: Septic shock, resolved Assessment & Plan: Possibly 2/2 bacteremia, cellulitis or UTI Afebrile S/p extubation x2 Consultations: ID, Dr. Guevara---> help appreciated Labs - WBC normalized - Elevated Lactate: 5.8-->4.4 - Blood culture (05/15/18): Group C Strep, BC (05/19/18): Negative X 5 days - Urine Culture ( 05/16/18): Negative and (05/19/18): Negative - Gram stain sputum (05/19/18): E.coli and (05/23/18): Normal anai - Wound culture (05/20/18): Negative Medications: * Vancomycin 1gm IV MWF * DC Aztreonam 1gm IV daily (started 05/17/18; completed 05/31) * DC Clindamycin 600mg IV Q8H (Started 05/17/18; completed 05/31) * Florastor 250mg PO BID Renal disease Assessment & Plan: Possibly secondary to septic shock Consultation: Nephrology, Dr. Castro---> Help appreciated Vascular surgery, Dr. Luna---> Help appreciated * Right IJ permacath placement 05/28/18 HD- M, W, F Procrit 14,000 units M,W,F Vitamin D, 50,000 units PO Q7D Nephro-jeovany 1 tab PO daily Anemia secondary to renal failure H/H stable: 7.7 Fergon 324mg PO TID 1 unit PRBCs transfused (06/01/18) Thrombocytopenia Consultation: Hematology and oncology, Dr. Duggan --> Help appreciated Continue to monitor with labs No acute/ active bleeding Hypertension Stable Cozaar 25mg PO TTS Coreg 3.125mg PO BID History of CHF (congestive heart failure - HFrEF) Imaging: Echocardiogram (05/15/18): The left ventricular function is severely reduced, with diffuse hyopkinesis. The left ventricular ejection fraction is about 20%. The septum is dyskinetic and demonstrates flattening. elevated RV pressures. Borderline to mild concentric left ventricular hypertrophy. The RV is mildly dilated. The right ventricular systolic function is markedly reduced. The left and right atrium is markedly dilated. Normal Doppler. Repeat ECHO (05/21/18): Improved EF to 30-35%. Please refer to the EMR for official report Medications: * Coreg 3.125mg PO BID * Cozaar 25mg PO TTS History of diabetes mellitus HgbA1C (05/15/18): 6.5% Accuchecks ISS - Low dose Hypoglycemia protocol Cellulitis of left lower extremity; Leg Bullae, bilateral Venous doppler (05/15/18): No evidence of deep or superficial vein thrombosis of the left lower extremity with excellent venous floow. Normal valve function noted of the left side. Dr. Zhu, Podiatry - help appreciated -No surgical intervention at this time -Imaging show no evidence of soft tissue emphysema. Evidence of subcutaneous edema and cellulitis appreciated -Bullae sites dressed -Please apply multipodus boots at all times while in bed Hypothyroid TSH (05/15 & 05/29/18): 14:40 & 15.80, respectively Free T4 (05/15/18): 0.89 Levothyroxine 25mcg PO daily ( 05/30/18) Shortness of breath Albuterol 3ml INH RQ4 Prophylactic measure Assessment & Plan: GI: Protonix 40mg IV daily DVT: HOLD VTE SCDs Disposition: Possible transfer to [facility] if insurance approval. All plans and management discussed with Dr. Loyd Gilmore PGY3
[2018-06-01] MEDS: Multivitamin Vitamin B Complex (Nephro-Vite) Tab PO SCH (08:20)
[2018-06-01 08:35] LABS: BANDS 3 % (0-2); LYMPHOCYTE 5 % (20-40); MONOCYTE 8 % (0-10); NEUTROPHIL 83 % (50-75); NUCLEATED RED BLOOD CELL 1 % (0-0); PLATELET ESTIMATE NORMAL (NORMAL); REACTIVE LYMPHOCYTES 1 % (0-0); TOTAL CELLS COUNTED 100
[2018-06-01 08:36] LABS: ANISOCYTOSIS MODERATE; HYPOCHROMIC SLIGHT
[2018-06-01] MEDS: Ergocalciferol 50,000 Intl Units Cap PO SCH (10:00)
[2018-06-01] MEDS: Saccharomyces Boulardi 250 mg Cap PO SCH ×2 (11:00→17:53)
[2018-06-01] MEDS: Epoetin Alfa 10,000 unit/ml Dialysis IV SCH ×2 (11:59→13:00)
[2018-06-01] MEDS: EPOETIN ALFA 4,000 UNIT/ML ML Dialysis IV SCH (11:59)
--- NOTE | 2018-06-01 13:54 | CP.PCM.PN ---
Subjective - Date & Time of Evaluation Date of Evaluation: 06/01/18 Time of Evaluation: 13:53 - Subjective Subjective: Nephrology Follow up Note HPI: 72-year-old female with a history of CHF, CAD, hypertension, hyperlipidemia, history of thyroid disease and renal disease, patient admitted to the hospital with a complaining of left lower extremity pain swelling of one day duration along with fever, followed by code sepsis, hypotension leading to resp distress and current intubation. Hx is obtained from charts. currrently intubated on pressors unknown baseline kidney disease, cr is now 3.1 UOP 10-15 cc per hour. on iv fluids and pressors Past medical history: Had a history of congestive heart failure, coronary artery disease, diabetes, hypertension, hypothyroidism, renal insufficiency. Patient has allergic to penicillin Surgical history include coronary artery bypass grafting x2 Social history: No smoking or drinking history noted Family history significant for diabetes and heart disease Medications at this time not available. 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 extubated 05/25/18 she feels better. denies SOB c/o leg pain On examination:seen during HD Patient is currently not in distress. comfortable Chest Rt air entry improved but diminished on left side Heart sounds are regular s1s2 normal Abdomen soft non tender. edema + feets better in terms of edema. b/l legs dressed awake calm access: pc Assesment: stable oligoanuric ARRON likely ATN/septic shock with cellulitis and ? 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 had permacath placed by vascular surgery 05/28/18. SW consult for outpt HD placement. maintain hemodynamics stable. Avoid hypotension. Patient not on ACEI/ARB due to recent ARRON Monitor Input/Output, daily weights and renal function with basic metabolic panel c/w Iron, MVI. PRBC as needed. epogen ordered supplement Vit D supplement lytes as needed. c/w coreg as tolerated by BP ordered for 24 hr crcl Dose meds/antibiotics for reduced GFR. Avoid fleets enema/magnesium based laxatives. Avoid nephrotoxins/NSAIDs/ iodinated contrast (unless needed emergently) Glycemic control Further work up/management as per primary team Thanks for allowing me to participate in care of your patient. Will follow patient with you. Please call if any Qs. had d/w team and family Dr Edin Castro Office: [phone] Objective - Vital Signs/Intake and Output Vital Signs (last 24 hours): Temp Pulse Resp BP Pulse Ox 97.6 F 91 H 16 93/62 L 98 06/01/18 12:11 06/01/18 12:11 06/01/18 12:11 06/01/18 12:15 06/01/18 11:06 Intake and Output: 06/01/18 06/01/18 06:59 18:59 Intake Total 0 Balance 0 - Medications Medications: Current Medications Acetaminophen (Tylenol 650mg/20.3ml Solution Ud) 650 mg PO Q6 PRN PRN Reason: Fever >100.4 F or Pain Last Admin: 06/01/18 01:51 Dose: 650 mg Albuterol/Ipratropium (Duoneb 3 Mg/0.5 Mg (3 Ml) Ud) 3 ml INH RQ6 [facility] Last Admin: 05/25/18 14:12 Dose: Not Given Albuterol/Ipratropium (Duoneb 3 Mg/0.5 Mg (3 Ml) Ud) 3 ml INH RQ4 [facility] Last Admin: 06/01/18 11:20 Dose: Not Given Carvedilol (Coreg) 3.125 mg PO BID [facility] Last Admin: 06/01/18 11:00 Dose: Not Given Epoetin Anthony (Procrit) 10,000 unit IV MWF [facility] Last Admin: 06/01/18 13:00 Dose: 10,000 unit Epoetin Anthony (Procrit) 4,000 unit IV MWF [facility] Last Admin: 06/01/18 11:59 Dose: 4,000 unit Ergocalciferol (Drisdol 50,000 Intl Units Cap) 1 cap PO Q7D [facility] Last Admin: 05/25/18 10:05 Dose: 1 cap Ferrous Gluconate (Fergon) 324 mg PO TID [facility] Last Admin: 04/15/19 11:00 Dose: Not Given Vancomycin HCl 1 gm/ Sodium (Chloride) 250 mls @ 166.7 mls/hr IVPB [facility]; Protocol Insulin Aspart (Novolog) 0 unit SC ACHS [facility]; Protocol Last Admin: 06/01/18 07:30 Dose: Not Given Levothyroxine Sodium (Synthroid) 25 mcg PO DAILY@0630 [facility] Last Admin: 06/01/18 05:35 Dose: 25 mcg Lidocaine (Lidoderm) 1 ea TD Q24H [facility] Last Admin: 05/31/18 21:19 Dose: 1 ea Montelukast Sodium (Singulair) 10 mg PO HS [facility] Last Admin: 05/31/18 21:18 Dose: 10 mg Saccharomyces Boulardii (Florastor) 250 mg PO BID [facility] Last Admin: 06/01/18 11:00 Dose: Not Given Vitamin B Complex/Vit C/Folic Acid (Nephro-Pancho) 1 tab PO 0800 [facility] Last Admin: 06/01/18 08:20 Dose: Not Given - Labs Labs: 06/01/18 07:10 06/01/18 07:10 PT 13.1 SECONDS (9.7-12.2) H 05/28/18 06:02 INR 1.2 05/28/18 06:02 APTT 29 SECONDS (21-34) 05/28/18 06:02
[2018-06-01 17:24] VITALS: RESP 20
[2018-06-01] MEDS: Lidocaine 5% Patch TD SCH (21:32)
--- NOTE | 2018-06-01 22:46 | CP.PCM.PN ---
Subjective - Date & Time of Evaluation Date of Evaluation: 06/01/18 Time of Evaluation: 09:00 - Subjective Subjective: afbrile c/o leg pain wounds healing nicely Objective - Vital Signs/Intake and Output Vital Signs (last 24 hours): Temp Pulse Resp BP Pulse Ox 98.0 F 92 H 20 96/55 L 99 06/01/18 16:00 06/01/18 16:00 06/01/18 16:00 06/01/18 16:00 06/01/18 16:00 Intake and Output: 06/01/18 06/02/18 18:59 06:59 Intake Total 655 Balance 655 - Medications Medications: Current Medications Acetaminophen (Tylenol 650mg/20.3ml Solution Ud) 650 mg PO Q6 PRN PRN Reason: Fever >100.4 F or Pain Last Admin: 06/01/18 21:32 Dose: 650 mg Albuterol/Ipratropium (Duoneb 3 Mg/0.5 Mg (3 Ml) Ud) 3 ml INH RQ6 [facility] Last Admin: 05/25/18 14:12 Dose: Not Given Albuterol/Ipratropium (Duoneb 3 Mg/0.5 Mg (3 Ml) Ud) 3 ml INH RQ4 [facility] Last Admin: 06/01/18 19:31 Dose: 3 ml Carvedilol (Coreg) 3.125 mg PO BID [facility] Last Admin: 06/01/18 17:53 Dose: 3.125 mg Epoetin Anthony (Procrit) 10,000 unit IV [facility] [place] Last Admin: 06/01/18 13:00 Dose: 10,000 unit Epoetin Anthony (Procrit) 4,000 unit IV F [facility] Last Admin: 06/01/18 11:59 Dose: 4,000 unit Ergocalciferol (Drisdol 50,000 Intl Units Cap) 1 cap PO Q7D [facility] Last Admin: 05/25/18 10:05 Dose: 1 cap Ferrous Gluconate (Fergon) 324 mg PO TID [facility] Last Admin: 06/01/18 18:04 Dose: 324 mg Vancomycin HCl 1 gm/ Sodium (Chloride) 250 mls @ 166.7 mls/hr IVPB [facility] [place]; Protocol Insulin Aspart (Novolog) 0 unit SC ACHS [facility]; Protocol Last Admin: 06/01/18 21:38 Dose: Not Given Levothyroxine Sodium (Synthroid) 25 mcg PO DAILY@0630 [facility] Last Admin: 06/01/18 05:35 Dose: 25 mcg Lidocaine (Lidoderm) 1 ea TD Q24H [facility] Last Admin: 06/01/18 21:32 Dose: 1 ea Montelukast Sodium (Singulair) 10 mg PO HS [facility] Last Admin: 06/01/18 21:33 Dose: 10 mg Saccharomyces Boulardii (Florastor) 250 mg PO BID [facility] Last Admin: 06/01/18 17:53 Dose: 250 mg Vitamin B Complex/Vit C/Folic Acid (Nephro-Pancho) 1 tab PO 0800 [facility] Last Admin: 06/01/18 08:20 Dose: Not Given - Labs Labs: 06/01/18 07:10 06/01/18 07:10 PT 13.1 SECONDS (9.7-12.2) H 05/28/18 06:02 INR 1.2 05/28/18 06:02 APTT 29 SECONDS (21-34) 05/28/18 06:02 - Constitutional Appears: Non-toxic, Cachectic, Chronically Ill - Head Exam Head Exam: NORMOCEPHALIC - Eye Exam Eye Exam: absent: Scleral icterus Pupil Exam: NORMAL ACCOMODATION - ENT Exam ENT Exam: Mucous Membranes Dry - Neck Exam Neck Exam: absent: Lymphadenopathy - Respiratory Exam Respiratory Exam: Decreased Breath Sounds, Clear to Ausculation Bilateral - Cardiovascular Exam Cardiovascular Exam: REGULAR RHYTHM, +S1, +S2 - GI/Abdominal Exam GI & Abdominal Exam: Distended - Rectal Exam Rectal Exam: Deferred - Exam Exam: NORMAL INSPECTION - Extremities Exam Extremities Exam: Tenderness. absent: Pedal Edema Additional comments: healing wounds left leg - Back Exam Back Exam: absent: CVA tenderness (L), CVA tenderness (R) - Neurological Exam Neurological Exam: Alert, Awake - Psychiatric Exam Psychiatric exam: Depressed - Skin Skin Exam: Dry Assessment and Plan (1) Multi-organ system dysfunction Status: Acute (2) Septic shock Status: Acute (3) Cellulitis of left lower extremity Status: Acute (4) Coagulopathy Status: Acute (5) Pancytopenia Status: Acute (6) Sepsis Status: Acute (7) Respiratory failure requiring intubation Status: Acute (8) Respiratory failure with hypoxia and hypercapnia Status: Acute (9) ARRON (acute kidney injury) Status: Acute - Assessment and Plan (Free Text) Assessment: cont rx for permacath placement
[2018-06-02] MEDS: Albuterol-Ipratrop 3 mg / 0.5 (3 ml) UD INH SCH ×4 (03:11→15:54)
[2018-06-02 04:45] VITALS: O2SAT 100
[2018-06-02] MEDS: Levothyroxine 25 MCG TAB PO SCH (06:58)
[2018-06-02 07:10] LABS: BASO % 0.6 % (0.0-2.0); EOS # 0.1 K/uL (0.0-0.7); LYMPH # 0.5 K/uL (1.0-4.3); LYMPH % 7.3 % (20.0-40.0); MEAN CORPUSCULAR HEMOGLOBIN 34.7 pg (27.0-31.0); MEAN CORPUSCULAR HGB CONC 33.5 g/dL (33.0-37.0); MEAN PLATELET VOLUME 9.5 fL (7.2-11.7); MONO # 0.6 K/uL (0.0-0.8); MONO % 8.9 % (0.0-10.0); NEUT # 5.8 K/uL (1.8-7.0); NEUT % 82.2 % (50.0-75.0); NRBC % 0.2 % (0.0-2.0); PLATELET COUNT 133 K/uL (130-400); RBC 2.83 Mil/uL (3.80-5.20); RED CELL DISTRIBUTION WIDTH 23.5 % (11.5-14.5); WHITE BLOOD COUNT 7.1 K/uL (4.8-10.8)
--- NOTE | 2018-06-02 07:18 | CP.PCM.PN ---
Subjective - Date & Time of Evaluation Date of Evaluation: 06/02/18 Time of Evaluation: 07:17 - Subjective Subjective: PGY3 progress note for Dr. Harp's service Patient was seen and examined at bedside. Nursing reports no acute events overnight. Patient reports leg pain at site of bullae. She states she feels better after transfusion yesterday. Denies chest pain, SOB, fever, chills, or abdominal pain. Objective - Vital Signs/Intake and Output Vital Signs (last 24 hours): Temp Pulse Resp BP Pulse Ox 97.7 F 90 20 111/65 100 06/02/18 04:44 06/02/18 04:44 06/02/18 04:44 06/02/18 04:44 06/02/18 04:44 - Medications Medications: Current Medications Albuterol/Ipratropium (Duoneb 3 Mg/0.5 Mg (3 Ml) Ud) 3 ml INH RQ6 [facility] Last Admin: 05/25/18 14:12 Dose: Not Given Albuterol/Ipratropium (Duoneb 3 Mg/0.5 Mg (3 Ml) Ud) 3 ml INH RQ4 [facility] Last Admin: 06/02/18 03:11 Dose: Not Given Carvedilol (Coreg) 3.125 mg PO BID [facility] Last Admin: 06/01/18 17:53 Dose: 3.125 mg Epoetin Anthony (Procrit) 10,000 unit IV [facility] [place] Last Admin: 06/01/18 13:00 Dose: 10,000 unit Epoetin Anthony (Procrit) 4,000 unit IV [facility] [place] Last Admin: 06/01/18 11:59 Dose: 4,000 unit Ergocalciferol (Drisdol 50,000 Intl Units Cap) 1 cap PO Q7D [facility] Last Admin: 05/25/18 10:05 Dose: 1 cap Ferrous Gluconate (Fergon) 324 mg PO TID [facility] Last Admin: 06/01/18 18:04 Dose: 324 mg Vancomycin HCl 1 gm/ Sodium (Chloride) 250 mls @ 166.7 mls/hr IVPB [facility] [place]; Protocol Insulin Aspart (Novolog) 0 unit SC ACHS [facility]; Protocol Last Admin: 06/01/18 21:38 Dose: Not Given Levothyroxine Sodium (Synthroid) 25 mcg PO DAILY@0630 [facility] Last Admin: 06/02/18 06:58 Dose: 25 mcg Lidocaine (Lidoderm) 1 ea TD Q24H [facility] Last Admin: 06/01/18 21:32 Dose: 1 ea Montelukast Sodium (Singulair) 10 mg PO HS [facility] Last Admin: 06/01/18 21:33 Dose: 10 mg Saccharomyces Boulardii (Florastor) 250 mg PO BID [facility] Last Admin: 06/01/18 17:53 Dose: 250 mg Vitamin B Complex/Vit C/Folic Acid (Nephro-Jeovany) 1 tab PO 0800 [facility] Last Admin: 06/01/18 08:20 Dose: Not Given - Labs Labs: 06/01/18 07:10 06/01/18 07:10 PT 13.1 SECONDS (9.7-12.2) H 05/28/18 06:02 INR 1.2 05/28/18 06:02 APTT 29 SECONDS (21-34) 05/28/18 06:02 - Additional Findings Additional findings: - Constitutional Appears: Well, No Acute Distress - Head Exam Head Exam: ATRAUMATIC, NORMAL INSPECTION - Eye Exam Eye Exam: EOMI, Normal appearance - ENT Exam ENT Exam: Mucous Membranes Moist - Neck Exam Additional comments: S/p Right IG permacath in place (05/28/18) - Respiratory Exam Respiratory Exam: Clear to Ausculation Bilateral, NORMAL BREATHING PATTERN. absent: Rhonchi, Wheezes - Cardiovascular Exam Cardiovascular Exam: REGULAR RHYTHM, +S1, +S2 - GI/Abdominal Exam GI & Abdominal Exam: Soft, Tenderness, Normal Bowel Sounds. absent: Distended, Firm, Guarding Additional comments: Mild tenderness at the epigastric - Extremities Exam Extremities Exam: Pedal Edema Additional comments: Right LE edema Left LE cellulitis (improving) - Neurological Exam Neurological Exam: Alert, Awake, Oriented x3 - Psychiatric Exam Psychiatric exam: Flat Affect - Skin Skin Exam: Normal Color Assessment and Plan - Assessment and Plan (Free Text) Plan: Septic shock, resolved Assessment & Plan: Possibly 2/2 bacteremia, cellulitis or UTI Afebrile S/p extubation x2 Consultations: Dr. Paola AVILA---> help appreciated Labs - WBC normalized - Elevated Lactate: 5.8-->4.4 - Blood culture (05/15/18): Group C Strep, BC (05/19/18): Negative X 5 days - Urine Culture ( 05/16/18): Negative and (05/19/18): Negative - Gram stain sputum (05/19/18): E.coli and (05/23/18): Normal anai - Wound culture (05/20/18): Negative Medications: * Vancomycin 1gm IV MWF * DC Aztreonam 1gm IV daily (started 05/17/18; completed 05/31) * DC Clindamycin 600mg IV Q8H (Started 05/17/18; completed 05/31) * Florastor 250mg PO BID Renal disease Assessment & Plan: Possibly secondary to septic shock Consultation: Nephrology, Dr. Castro---> Help appreciated Vascular surgery, Dr. Luna---> Help appreciated * Right IJ permacath placement 05/28/18 HD- M, W, F Procrit 14,000 units M,W,F Vitamin D, 50,000 units PO Q7D Nephro-jeovany 1 tab PO daily Anemia secondary to renal failure H/H stable: 7.7 Fergon 324mg PO TID 1 unit PRBCs transfused (06/01/18) Thrombocytopenia Consultation: Hematology and oncology, Dr. Duggan --> Help appreciated Continue to monitor with labs No acute/ active bleeding Hypertension Stable Cozaar 25mg PO TTS Coreg 3.125mg PO BID History of CHF (congestive heart failure - HFrEF) Imaging: Echocardiogram (05/15/18): The left ventricular function is severely reduced, with diffuse hyopkinesis. The left ventricular ejection fraction is about 20%. The septum is dyskinetic and demonstrates flattening. elevated RV pressures. Borderline to mild concentric left ventricular hypertrophy. The RV is mildly dilated. The right ventricular systolic function is markedly reduced. The left and right atrium is markedly dilated. Normal Doppler. Repeat ECHO (05/21/18): Improved EF to 30-35%. Please refer to the EMR for official report Medications: * Coreg 3.125mg PO BID * Cozaar 25mg PO TTS History of diabetes mellitus HgbA1C (05/15/18): 6.5% Accuchecks ISS - Low dose Hypoglycemia protocol Cellulitis of left lower extremity; Leg Bullae, bilateral Venous doppler (05/15/18): No evidence of deep or superficial vein thrombosis of the left lower extremity with excellent venous floow. Normal valve function noted of the left side. Dr. Zhu, Podiatry - help appreciated -No surgical intervention at this time -Imaging show no evidence of soft tissue emphysema. Evidence of subcutaneous edema and cellulitis appreciated -Bullae sites dressed -Please apply multipodus boots at all times while in bed Hypothyroid TSH (05/15 & 05/29/18): 14:40 & 15.80, respectively Free T4 (05/15/18): 0.89 Levothyroxine 25mcg PO daily ( 05/30/18) Shortness of breath Albuterol 3ml INH RQ4 Prophylactic measure Assessment & Plan: GI: Protonix 40mg IV daily DVT: HOLD VTE SCDs Disposition: Possible transfer to [facility] if insurance approval. All plans and management discussed with Dr. Loyd Gilmore PGY3
[2018-06-02 07:22] LABS: HEMOGLOBIN 9.8 g/dL (11.0-16.0); MEAN CELL VOLUME 103.7 fL (81.0-99.0)
[2018-06-02] MEDS: (Novolog) Insulin Aspart, Recombinant 100 u/ml 10 ml vial SC SCH ×2 (07:30→12:31)
[2018-06-02 07:54] LABS: ALB/GLOB RATIO 0.9 (1.0-2.1); ALBUMIN 2.4 g/dL (3.5-5.0); CALCIUM 7.9 mg/dl (8.6-10.4)
[2018-06-02] MEDS: Multivitamin Vitamin B Complex (Nephro-Vite) Tab PO SCH (08:04)
[2018-06-02 08:46] LABS: ANISOCYTOSIS MODERATE; BANDS 2 % (0-2); LYMPHOCYTE 7 % (20-40); MONOCYTE 9 % (0-10); NEUTROPHIL 80 % (50-75); PLATELET ESTIMATE NORMAL (NORMAL); REACTIVE LYMPHOCYTES 2 % (0-0); TOTAL CELLS COUNTED 100
[2018-06-02] MEDS: Saccharomyces Boulardi 250 mg Cap PO SCH (09:21)
[2018-06-02] MEDS ORDERED: Potassium Chloride 20 mEq ER Tab PO SCH (10:15)
[2018-06-02] MEDS: Ergocalciferol 50,000 Intl Units Cap PO SCH (10:23)
--- NOTE | 2018-06-02 10:59 | CP.PCM.PN ---
Subjective - Date & Time of Evaluation Date of Evaluation: 06/02/18 Time of Evaluation: 10:56 - Subjective Subjective: Podiatry Progress Note for Dr. Zhu 72 year old female seen and evaluated at bedside for b/l leg swelling with drained serous liquid filled bullae of left leg. Per nursing, no acute overnight events. Patient is awake and alert. Denies any leg pain at this time. No other pedal complains. Objective - Vital Signs/Intake and Output Vital Signs (last 24 hours): Temp Pulse Resp BP Pulse Ox 97.7 F 90 20 111/65 100 06/02/18 04:44 06/02/18 04:44 06/02/18 04:44 06/02/18 04:44 06/02/18 04:44 Intake and Output: 06/02/18 06/02/18 06:59 18:59 Intake Total 200 Balance 200 - Medications Medications: Current Medications Albuterol/Ipratropium (Duoneb 3 Mg/0.5 Mg (3 Ml) Ud) 3 ml INH RQ6 [facility] Last Admin: 05/25/18 14:12 Dose: Not Given Albuterol/Ipratropium (Duoneb 3 Mg/0.5 Mg (3 Ml) Ud) 3 ml INH RQ4 [facility] Last Admin: 06/02/18 08:30 Dose: Not Given Carvedilol (Coreg) 3.125 mg PO BID [facility] Last Admin: 06/02/18 09:21 Dose: 3.125 mg Epoetin Anthony (Procrit) 10,000 unit IV MWF [facility] Last Admin: 06/01/18 13:00 Dose: 10,000 unit Epoetin Anthony (Procrit) 4,000 unit IV MWF [facility] Last Admin: 06/01/18 11:59 Dose: 4,000 unit Ergocalciferol (Drisdol 50,000 Intl Units Cap) 1 cap PO Q7D [facility] Last Admin: 06/02/18 10:23 Dose: 1 cap Ferrous Gluconate (Fergon) 324 mg PO TID [facility] Last Admin: 06/02/18 09:21 Dose: 324 mg Vancomycin HCl 1 gm/ Sodium (Chloride) 250 mls @ 166.7 mls/hr IVPB MWF [facility]; Protocol Last Admin: 06/01/18 10:00 Dose: Not Given Insulin Aspart (Novolog) 0 unit SC ACHS [facility]; Protocol Last Admin: 06/02/18 07:30 Dose: Not Given Levothyroxine Sodium (Synthroid) 25 mcg PO DAILY@0630 [facility] Last Admin: 06/02/18 06:58 Dose: 25 mcg Lidocaine (Lidoderm) 1 ea TD Q24H [facility] Last Admin: 06/01/18 21:32 Dose: 1 ea Montelukast Sodium (Singulair) 10 mg PO HS [facility] Last Admin: 06/01/18 21:33 Dose: 10 mg Saccharomyces Boulardii (Florastor) 250 mg PO BID [facility] Last Admin: 06/02/18 09:21 Dose: 250 mg Vitamin B Complex/Vit C/Folic Acid (Nephro-Pancho) 1 tab PO 0800 [facility] Last Admin: 06/02/18 08:04 Dose: 1 tab - Labs Labs: 06/02/18 06:58 06/02/18 06:58 PT 13.1 SECONDS (9.7-12.2) H 05/28/18 06:02 INR 1.2 05/28/18 06:02 APTT 29 SECONDS (21-34) 05/28/18 06:02 - Constitutional Appears: Well, Non-toxic, No Acute Distress - Extremities Exam Additional comments: LLE focused exam: Vasc: DP/PT pulses faintly palpable 1/4 b/l, CFT < 3 seconds to all digits, skin temperature warm to warm from proximal to distal WNL, no erythema present. Diffuse 1+ pitting edema noted to b/l LE Neuro: Epicritic and protective sensation grossly intact b/l Derm: Three healing, lysed bullae noted to lateral aspect of leg and one healing, lysed bullae noted to medial aspect of leg. Wound bases are all granular in nature. No erythema noted at this time. No clinical signs of infection. No new bullae noted today. Wounds continue to show signs of imp rovement MSK: No gross deformities noted. Unable to assess ROM or MMT at this time - Neurological Exam Neurological Exam: Alert, Awake, Oriented x3 - Psychiatric Exam Psychiatric exam: Normal Affect, Normal Mood Assessment and Plan - Assessment and Plan (Free Text) Assessment: 72 year old F seen and evaluated at bedside for b/l leg swelling with drained serous liquid filled bullae of left leg Plan: Patient seen and evaluated Plan discussed with Dr. Zhu VSS; WBC 7.1 Continue abx per ID Wound culture from bullae: No growth Blood cx: Group C Strep Urine cx: E. coli Foot, ankle and tib/fib xrays show no evidence of soft tissue emphysema. Evidence of subcutaneous edema and cellulitis appreciated Bullae sites dressed with DSD, ABD No plan for surgical intervention at this time Please apply multipodus boots at all times while in bed Podiatry will continue to follow while patient in house
--- NOTE | 2018-06-02 12:06 | CP.PCM.PN ---
Subjective - Date & Time of Evaluation Date of Evaluation: 06/02/18 Time of Evaluation: 12:04 - Subjective Subjective: Nephrology Follow up Note HPI: 72-year-old female with a history of CHF, CAD, hypertension, hyperlipidemia, history of thyroid disease and renal disease, patient admitted to the hospital with a complaining of left lower extremity pain swelling of one day duration along with fever, followed by code sepsis, hypotension leading to resp distress and current intubation. Hx is obtained from charts. currrently intubated on pressors unknown baseline kidney disease, cr is now 3.1 UOP 10-15 cc per hour. on iv fluids and pressors Past medical history: Had a history of congestive heart failure, coronary artery disease, diabetes, hypertension, hypothyroidism, renal insufficiency. Patient has allergic to penicillin Surgical history include coronary artery bypass grafting x2 Social history: No smoking or drinking history noted Family history significant for diabetes and heart disease Medications at this time not available. 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 extubated 05/25/18 she feels better. denies SOB c/o leg pain On examination: Patient is currently not in distress. comfortable Chest Rt air entry improved and clearer Heart sounds are regular s1s2 normal Abdomen soft non tender. edema + feets better in terms of edema. b/l legs dressed awake calm access: pc Assesment: stable oligoanuric ARRON likely ATN/septic shock with cellulitis and ? 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 stage Plan plan for HD MWF schedule. had permacath placed by vascular surgery 05/28/18. SW consult for outpt HD placement. maintain hemodynamics stable. Avoid hypotension. Patient not on ACEI/ARB due to low BP. consider to add if BP allows. Monitor Input/Output, daily weights and renal function with basic metabolic panel c/w Iron, MVI. PRBC as needed. epogen as ordered supplement Vit D supplement lytes as needed. c/w coreg as tolerated by BP ordered for 24 hr crcl but almost no urine output as per nursing staff. Dose meds/antibiotics for reduced GFR. Avoid fleets enema/magnesium based laxatives. Avoid nephrotoxins/NSAIDs/ iodinated contrast (unless needed emergently) Glycemic control Further work up/management as per primary team pt being planned for d/c to [facility]. stable from renal perspective when planned Thanks for allowing me to participate in care of your patient. Will follow patient with you. Please call if any Qs. had d/w team and family Dr Edin Castro Office: [phone] Objective - Vital Signs/Intake and Output Vital Signs (last 24 hours): Temp Pulse Resp BP Pulse Ox 97.7 F 90 20 111/65 100 06/02/18 04:44 06/02/18 04:44 06/02/18 04:44 06/02/18 04:44 06/02/18 04:44 Intake and Output: 06/02/18 06/02/18 06:59 18:59 Intake Total 200 Balance 200 - Medications Medications: Current Medications Albuterol/Ipratropium (Duoneb 3 Mg/0.5 Mg (3 Ml) Ud) 3 ml INH RQ6 [facility] Last Admin: 05/25/18 14:12 Dose: Not Given Albuterol/Ipratropium (Duoneb 3 Mg/0.5 Mg (3 Ml) Ud) 3 ml INH RQ4 [facility] Last Admin: 06/02/18 08:30 Dose: Not Given Carvedilol (Coreg) 3.125 mg PO BID [facility] Last Admin: 06/02/18 09:21 Dose: 3.125 mg Epoetin Anthony (Procrit) 10,000 unit IV MWF [facility] Last Admin: 06/01/18 13:00 Dose: 10,000 unit Epoetin Anthony (Procrit) 4,000 unit IV MWF [facility] Last Admin: 06/01/18 11:59 Dose: 4,000 unit Ergocalciferol (Drisdol 50,000 Intl Units Cap) 1 cap PO Q7D [facility] Last Admin: 06/02/18 10:23 Dose: 1 cap Ferrous Gluconate (Fergon) 324 mg PO TID [facility] Last Admin: 06/02/18 09:21 Dose: 324 mg Vancomycin HCl 1 gm/ Sodium (Chloride) 250 mls @ 166.7 mls/hr IVPB MWF [facility]; Pr otocol Last Admin: 06/01/18 10:00 Dose: Not Given Insulin Aspart (Novolog) 0 unit SC ACHS [facility]; Protocol Last Admin: 06/02/18 07:30 Dose: Not Given Levothyroxine Sodium (Synthroid) 25 mcg PO DAILY@0630 [facility] Last Admin: 06/02/18 06:58 Dose: 25 mcg Lidocaine (Lidoderm) 1 ea TD Q24H [facility] Last Admin: 06/01/18 21:32 Dose: 1 ea Montelukast Sodium (Singulair) 10 mg PO HS [facility] Last Admin: 06/01/18 21:33 Dose: 10 mg Saccharomyces Boulardii (Florastor) 250 mg PO BID [facility] Last Admin: 06/02/18 09:21 Dose: 250 mg Vitamin B Complex/Vit C/Folic Acid (Nephro-Pancho) 1 tab PO 0800 [facility] Last Admin: 06/02/18 08:04 Dose: 1 tab - Labs Labs: 06/02/18 06:58 06/02/18 06:58 PT 13.1 SECONDS (9.7-12.2) H 05/28/18 06:02 INR 1.2 05/28/18 06:02 APTT 29 SECONDS (21-34) 05/28/18 06:02
[2018-06-02 12:20] VITALS: BP 138/75; PULSE 89; TEMP 98.3
--- NOTE | 2018-06-02 23:36 | CP.PCM.PN ---
Subjective - Date & Time of Evaluation Date of Evaluation: 06/01/18 Time of Evaluation: 12:00 - Subjective Subjective: Has leg pain. Objective - Vital Signs/Intake and Output Vital Signs (last 24 hours): Temp Pulse Resp BP Pulse Ox 98.3 F 89 20 138/75 100 06/02/18 07:25 06/02/18 07:25 06/02/18 07:25 06/02/18 07:25 06/02/18 07:25 Intake and Output: 06/02/18 06/03/18 18:59 06:59 Intake Total 450 Balance 450 - Labs Labs: 06/02/18 06:58 06/02/18 06:58 PT 13.1 SECONDS (9.7-12.2) H 05/28/18 06:02 INR 1.2 05/28/18 06:02 APTT 29 SECONDS (21-34) 05/28/18 06:02 - Head Exam Head Exam: ATRAUMATIC - Eye Exam Eye Exam: Normal appearance - ENT Exam ENT Exam: Mucous Membranes Dry - Respiratory Exam Respiratory Exam: NORMAL BREATHING PATTERN - Cardiovascular Exam Cardiovascular Exam: +S1, +S2 - GI/Abdominal Exam GI & Abdominal Exam: Normal Bowel Sounds Assessment and Plan (1) Anemia Assessment & Plan: anemia of chronic disease anemia of CKD on Procrit transfusion support PRN Status: Acute
--- NOTE | 2018-06-02 23:37 | CP.PCM.PN ---
Subjective - Date & Time of Evaluation Date of Evaluation: 06/02/18 Time of Evaluation: 14:00 - Subjective Subjective: Has leg pain, daughter at bedside. Objective - Vital Signs/Intake and Output Vital Signs (last 24 hours): Temp Pulse Resp BP Pulse Ox 98.3 F 89 20 138/75 100 06/02/18 07:25 06/02/18 07:25 06/02/18 07:25 06/02/18 07:25 06/02/18 07:25 Intake and Output: 06/02/18 06/03/18 18:59 06:59 Intake Total 450 Balance 450 - Labs Labs: 06/02/18 06:58 06/02/18 06:58 PT 13.1 SECONDS (9.7-12.2) H 05/28/18 06:02 INR 1.2 05/28/18 06:02 APTT 29 SECONDS (21-34) 05/28/18 06:02 - Head Exam Head Exam: ATRAUMATIC - Eye Exam Eye Exam: Normal appearance - ENT Exam ENT Exam: Mucous Membranes Dry - Respiratory Exam Respiratory Exam: NORMAL BREATHING PATTERN - Cardiovascular Exam Cardiovascular Exam: +S1, +S2 - GI/Abdominal Exam GI & Abdominal Exam: Normal Bowel Sounds Assessment and Plan (1) Anemia Assessment & Plan: anemia of chronic disease anemia of CKD on Procrit transfusion support PRN Status: Acute
== END 2018-06-02 17:57 | DRG 870 ==
LOC: C.ER 11:26 → C.9E 15:05 → C.3T 15:56 → C.9I 20:11 → C.6T 05-28 16:04
PROVIDERS: ADMIT Internal Medicine Pulmonary Disease; ATTEND Internal Medicine Pulmonary Disease
PROC: 5A1955Z Respiratory Ventilation, Greater than 96 Consecutive Hours (ICD-10-PCS; principal; 2018-05-15)
PROC: 0BH17EZ Insertion of Endotracheal Airway into Trachea, Via Natural or Artificial Opening (ICD-10-PCS; 2018-05-15)
PROC: 05HM33Z Insertion of Infusion Device into Right Internal Jugular Vein, Percutaneous Approach (ICD-10-PCS; 2018-05-16)
PROC: 5A1D70Z Performance of Urinary Filtration, Intermittent, Less than 6 Hours Per Day (ICD-10-PCS; 2018-05-17)
PROC: 5A1D70Z Performance of Urinary Filtration, Intermittent, Less than 6 Hours Per Day (ICD-10-PCS; 2018-05-18)
PROC: 0H9LXZX Drainage of Left Lower Leg Skin, External Approach, Diagnostic (ICD-10-PCS; 2018-05-19)
PROC: 5A1D70Z Performance of Urinary Filtration, Intermittent, Less than 6 Hours Per Day (ICD-10-PCS; 2018-05-19)
PROC: 0BH18EZ Insertion of Endotracheal Airway into Trachea, Via Natural or Artificial Opening Endoscopic (ICD-10-PCS; 2018-05-20)
PROC: 5A1D70Z Performance of Urinary Filtration, Intermittent, Less than 6 Hours Per Day (ICD-10-PCS; 2018-05-20)
PROC: 5A1D70Z Performance of Urinary Filtration, Intermittent, Less than 6 Hours Per Day (ICD-10-PCS; 2018-05-22)
PROC: 5A1D70Z Performance of Urinary Filtration, Intermittent, Less than 6 Hours Per Day (ICD-10-PCS; 2018-05-23)
PROC: 5A1D70Z Performance of Urinary Filtration, Intermittent, Less than 6 Hours Per Day (ICD-10-PCS; 2018-05-25)
PROC: 5A1D70Z Performance of Urinary Filtration, Intermittent, Less than 6 Hours Per Day (ICD-10-PCS; 2018-05-27)
PROC: 02H633Z Insertion of Infusion Device into Right Atrium, Percutaneous Approach (ICD-10-PCS; 2018-05-28)
PROC: B214YZZ Fluoroscopy of Right Heart using Other Contrast (ICD-10-PCS; 2018-05-28)
PROC: 05PYX3Z Removal of Infusion Device from Upper Vein, External Approach (ICD-10-PCS; 2018-05-28)
PROC: B543ZZA Ultrasonography of Right Jugular Veins, Guidance (ICD-10-PCS; 2018-05-28)
PROC: 5A1D70Z Performance of Urinary Filtration, Intermittent, Less than 6 Hours Per Day (ICD-10-PCS; 2018-05-29)
PROC: 5A1D70Z Performance of Urinary Filtration, Intermittent, Less than 6 Hours Per Day (ICD-10-PCS; 2018-06-01)
DX: A40.8 Other streptococcal sepsis (principal); R65.21 Severe sepsis with septic shock; J96.01 Acute respiratory failure with hypoxia; J96.02 Acute respiratory failure with hypercapnia; L03.116 Cellulitis of left lower limb; N17.0 Acute kidney failure with tubular necrosis; J69.0 Pneumonitis due to inhalation of food and vomit; N18.6 End stage renal disease; D61.818 Other pancytopenia; N39.0 Urinary tract infection, site not specified; D68.9 Coagulation defect, unspecified; I13.2 Hypertensive heart and chronic kidney disease with heart failure and with stage 5 chronic kidney disease, or end stage renal disease; R18.8 Other ascites; L03.115 Cellulitis of right lower limb; R23.8 Other skin changes; D63.1 Anemia in chronic kidney disease; E11.649 Type 2 diabetes mellitus with hypoglycemia without coma; B96.20 Unspecified Escherichia coli [E. coli] as the cause of diseases classified elsewhere; B96.89 Other specified bacterial agents as the cause of diseases classified elsewhere; E11.22 Type 2 diabetes mellitus with diabetic chronic kidney disease; I50.9 Heart failure, unspecified; I27.20 Pulmonary hypertension, unspecified; I25.10 Atherosclerotic heart disease of native coronary artery without angina pectoris; I77.819 Aortic ectasia, unspecified site; I95.9 Hypotension, unspecified; D53.9 Nutritional anemia, unspecified; E03.9 Hypothyroidism, unspecified; E27.8 Other specified disorders of adrenal gland; R00.1 Bradycardia, unspecified; E78.5 Hyperlipidemia, unspecified; I25.5 Ischemic cardiomyopathy; K27.9 Peptic ulcer, site unspecified, unspecified as acute or chronic, without hemorrhage or perforation; K80.20 Calculus of gallbladder without cholecystitis without obstruction; K21.9 Gastro-esophageal reflux disease without esophagitis; R16.0 Hepatomegaly, not elsewhere classified; M85.80 Other specified disorders of bone density and structure, unspecified site; R13.10 Dysphagia, unspecified; Z79.4 Long term (current) use of insulin; Z88.0 Allergy status to penicillin; Z91.14 Patient's other noncompliance with medication regimen; Z95.1 Presence of aortocoronary bypass graft